=== PATIENT | female | born 1950 | race Caucasian/White ===

== ENCOUNTER 2024-07-10 09:57 | Emergency (ER) | payer MEDICARE, SELFPAY ==
[2024-07-10 10:20] VITALS: BP 147/84; PULSE 89; RESP 18; TEMP 36.6; O2SAT 97
--- NOTE | 2024-07-10 10:57 | ED_ITS ---
HPI - URI/Sore Throat General Chief Complaint: Upper Respiratory Infection Stated Complaint: congestion Time Seen by Provider: 07/10/24 11:00 Source: patient, family, RN notes reviewed and old records reviewed Mode of arrival: ambulatory Limitations: no limitations History of Present Illness HPI Narrative: 74 year old female visiting from [place] with 4 days history of coughing with expectoration of greenish tinged mucous, wheezing, coughing so hard at night she can not sleep. She reports that she had 2-3 days of fever initially with sweats and chills when symptoms started. She has been taking Tylenol and ibuprofen for her symptoms, denies any sore throat or any ear pain. MD elicited complaint: fever, cough and other (wheezing) Onset (ago): day(s) (4) Severity: moderate Description of mucous: green Able to tolerate fluids by mouth: Yes Treatments prior to arrival: acetaminophen and ibuprofen Related Data Home Medications ?Medication ?Instructions ?Recorded ?Confirmed ?Last Taken ?Type alprazolam 0.5 mg tablet mg 07/10/24 Unknown History aspirin 81 mg capsule 81 mg PO DAILY 07/10/24 07/10/24 Unknown History atenolol 50 mg tablet mg 07/10/24 Unknown History atorvastatin 20 mg tablet mg 07/10/24 Unknown History calcium 500 mg tablet mg 07/10/24 Unknown History lansoprazole 30 mg capsule,delayed mg 07/10/24 Unknown History release multivitamin (Daily Multi-Vitamin 1 tablet PO DAILY 07/10/24 07/10/24 Unknown History tablet) Allergies Allergy/AdvReac Type Severity Reaction Status Date / Time No Known Allergies Allergy Verified 07/10/24 10:54 Review of Systems Review of Systems: CONSTITUTIONAL: reports malaise, chills, sweats, or fever. EYES: Denies visual changes, redness, or discharge. ENT: Reports rhinorrhea, congestion, sinus pain, no otalgia and no sore throat. CARDIOVASCULAR: Denies chest pain, palpitations, or edema. RESPIRATORY: Reports productive cough and wheezing .? Denies dyspnea. GASTROINTESTINAL: Denies abdominal pain, nausea, vomiting, diarrhea SKIN: Denies rash or itching. MUSCULOSKELETAL: Denies myalgia. NEUROLOGIC: Denies headache. All systems reviewed & are unremarkable except as noted in HPI and below PMFSH Past Medical History Medical History (Updated 07/11/24 @ 22:57 by Chloé Virgen NP) Post-menopausal Bronchitis Hiatal hernia Anxiety Hyperlipidemia GERD (gastroesophageal reflux disease) Hypertension Surgical History Surgical History (Updated 07/11/24 @ 22:52 by Chloé Virgen NP) Hx of dilation and curettage Social History Social History (Updated 07/11/24 @ 22:52 by Chloé Virgen NP) Smoking status: Never smoker Alcohol intake: current Alcohol use details: social Substance use type: does not use Living arrangements: with family Occupation/Education: retired Gender identity (if verbalized by the patient): Female Comments At time of signature, agree with nursing past medical, surgical, social and family history. There is no relevant family history pertinent to the presenting complaint Exam Narrative: GENERAL: Well-appearing, well-nourished, and in no acute distress. HEAD: Normocephalic EYES: PERRLA, conjunctivae clear ENT: Nares clear, turbinates edematous and erythematous, clear discharge. Mucous membranes moist. TM pearly mcintosh with dull light reflex bilaterally; no tragal tenderness. Oropharynx erythematous without lesions. Tonsils not enlarged and without exudate, no drooling, no hoarseness, no trismus, uvula midline. NECK: Supple. No lymphadenopathy CHEST: Coarse with scattered wheezing on auscultation, breath sounds equal.positive wheezing,no rhonchi, rales, or stridor. No respiratory distress, speaks in full sentences, productive cough, SAO2 97% on room air HEART: Regular rate and rhythm. No murmur heard. SKIN: Warm, dry, no rash. NEURO: Alert and oriented x3. PSYCH: Normal mood and affect Course Course Emergency Course: Patient is aware of diagnosis, understands and agrees to treatment plan.? An ticipatory guidance given.? Patient agrees to follow-up as directed and is aware of reasons to seek care at the emergency department. Portions of this record may have been created with voice recognition software Level of Care: Express Care Visit Vital Signs Vital signs: Vital Signs Temperature 36.6 C 07/10/24 10:20 Pulse Rate 89 07/10/24 10:20 Respiratory Rate 18 07/10/24 10:20 Blood Pressure 147/84 H 07/10/24 10:20 Pulse Oximetry 97 12/22/24 10:20 Oxygen Delivery Room Air 07/10/24 10:20 Temperature 36.6 C 07/10/24 10:20 Pulse Rate 89 07/10/24 10:20 Respiratory Rate 18 07/10/24 10:20 Blood Pressure 147/84 H 07/10/24 10:20 Pulse Oximetry 97 07/10/24 10:20 Oxygen Delivery Room Air 07/10/24 10:20 Reviewed MDM - URI/Sore Throat MDM Narrative Medical decision making narrative: Differential diagnosis considered: Longo virus, strep pharyngitis, allergic rhinitis, upper respiratory tract infection, sinusitis, rhinosinusitis, nasopharyngitis. viral pharyngitis, otitis media, otitis externa, pneumonia, bronchitis, viral cough syndrome, viral syndrome, and influenza.? Exam findings show no acute concerns or changes; patient is non-toxic appearing and is in no distress.? Patient is appropriate for outpatient treatment and follow-up. Differential Diagnosis Differential diagnosis: Likely upper respiratory infection, viral infection, bronchitis and other (acute cough) Medical Records Attestation: I reviewed the patient's medical records. Lab Data Attestation: I reviewed the patient's lab results. Critical Care Time Critical Care Time Critical Care Time: No Discharge Plan Discharge Clinical Impression: Acute bronchitis Qualifiers: Bronchitis organism: unspecified organism Qualified Code(s): J20.9 - Acute bronchitis, unspecified Patient Disposition: Home, Self-Care Condition: Stable Instructions: Antibiotic Form, Acute Bronchitis (ED) Additional Instructions: Increase fluids especially juices and water [id number] cough and cold medicine of your choice for your symptoms Prescription cough medicine as directed--caution drowsiness and no driving or alcohol Zyrtec Claritin or Fern daily can use Coricidin brand decongestant Tylenol or ibuprofen for any fever pain Continue your inhaler/nebulizer as directed Steroids as directed--take with food heat to the face 20-30 minutes 4-6 times a day for pain Salt water gargles, throat lozenges or throat sprays as desired Antibiotic as directed--finished the medication If your symptoms persist, change or worsen significantly before you can contact your personal physician then please, without delay, go to the emergency department for further evaluation. Follow-up with PCP in 7-10 days or sooner if needed Follow up with PCP soon in regards to your blood pressure which is elevated above threshold for referral. Blood pressure above 120/80 may indicate pre- hypertension. 147/84 Patient Language: Romanian Prescriptions: New albuterol sulfate [Ventolin HFA] 90 mcg/actuation HFA aerosol inhaler 2 puff inhalation QID PRN (Reason: shortness of breath or wheezing) Qty: 6.7 0RF azithromycin 250 mg tablet See Rx Instructions .ROUTE .COMPLEX Qty: 6 0RF Rx Instructions: For 250 mg dose pack: take 500 mg today (day 1), then 250 mg for 4 days (days 2-5) prednisone 50 mg tablet 50 mg PO DAILY Qty: 5 0RF Rx Instructions: take with food and take in am codeine-guaifenesin 10-100 mg/5 mL liquid 10 ml PO Q6H PRN (Reason: cough) Qty: 120 0RF Rx Instructions: can not drive or operate machinery while taking do not take Xanax with this medication No Action atorvastatin 20 mg tablet alprazolam 0.5 mg tablet lansoprazole 30 mg capsule,delayed release(DR/EC) atenolol 50 mg tablet aspirin 81 mg capsule 81 mg PO DAILY calcium 500 mg tablet multivitamin [Daily Multi-Vitamin] Tablet 1 tablet PO DAILY Follow-up/Referrals: UNKNOWN,DOCTOR [Primary Care Provider] - Time of Disposition: 11:17 Quality Jenae Coma Scale Eyes: Open Verbal: Oriented and Alert Motor: Follows Commands [place] Coma Total Score: 15
--- OUTSIDE RECORDS SUMMARY | 2024-07-17 09:40 | XMS_ITS | Encounter Summary ---
Author Organization [facility] Address [address] [place] [address]. [place] [address] [place] [address] Care Team Providers Care Core Setter Name Role Phone Unavailable Primary Care Provider Unavailabl e Encounter Details Date Type Department Care Team (Late st Contact Info) Description 10/25/2002 Abstract [facility] CONVERSION [address] [place] [address] , Generic Conversion, Social History Tobacco Use Types Packs/Day Years Used Date Smoking Tobacco: Never Assessed Comments Unknown Sex and Gender Information Value Date Recorded Sex Assigned at Not on file Legal Sex Female 5:44 PM CONVEYANCER Gender Identity Not on file Sexual Orientation Not on file documented as of this encounter Plan of Treatment Not on file documented as of this encounter Visit Diagnoses Not on filedocumented in this encounter
--- OUTSIDE RECORDS SUMMARY | 2024-07-17 09:40 | XMS_ITS | Clinical Summary ---
Author Organization [facility] Address [address] [place] [address]. 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 Gender Identity Not on file Sexual Orientation Not on file Plan of Treatment Health Maintenance Due Date Last Done Comments Colorectal Cancer Screening Colonoscopy (10 Years) 1951 Hepatitis C 1969 DTaP, Tdap and Td Vaccines ( 1 - Tdap) 1970 Mammogram Screening 1991 Zoster Vaccines (1 of 2) 2001 Dexa Scan (General) 2016 Pneumococcal Vaccine: 65+ Ye ars (1 of 1 - PCV) 2016 COVID-19 Vaccine ( - 2023-2 5 season) 2024 Influenza Adult (#1) 2024 RSV Immunization or 60+ Years (1 - 1-dose 75+ series) 2026 Meningococcal Vaccine Aged Out No bennie uri eligible based on patient's age to complete this topic RSV Immunizations Under 20 Months Aged Out No longer eligible based on patient's age to complete this topic
--- OUTSIDE RECORDS SUMMARY | 2024-07-17 09:40 | XMS_ITS | Encounter Summary ---
Author Organization [facility] Address [address] [place] [address]. [place] [address] [place] [address] Care Team Providers Care Ground Instructor Advanced Name Role Phone Unavailable Primary Care Provider Unavailabl e Encounter Details Date Type Department Care Team (Late st Contact Info) Description 08/03/2000 Abstract [facility] CONVERSION [address] [place] [address] , Generic Conversion, Social History Tobacco Use Types Packs/Day Years Used Date Smoking Tobacco: Never Assessed Comments Unknown Sex and Gender Information Value Date Recorded Sex Assigned at Not on file Legal Sex Female 5:44 PM OIL SPREADER OPERATOR Gender Identity Not on file Sexual Orientation Not on file documented as of this encounter Plan of Treatment Not on file documented as of this encounter Visit Diagnoses Not on filedocumented in this encounter
--- OUTSIDE RECORDS SUMMARY | 2024-07-17 09:40 | XMS_ITS | Encounter Summary ---
Author Organization [facility] Address [address] [place] [address]. [place] [address] [place] [address] Care Team Providers Care House Coordinator Name Role Phone Unavailable Primary Care Provider Unavailabl e Encounter Details Date Type Department Care Team (Late st Contact Info) Description 05/14/1999 Abstract [facility] CONVERSION [address] [place] [address] , Generic Conversion, Social History Tobacco Use Types Packs/Day Years Used Date Smoking Tobacco: Never Assessed Comments Unknown Sex and Gender Information Value Date Recorded Sex Assigned at Not on file Legal Sex Female 5:44 PM FLEXIBLE SHAFT WINDER Gender Identity Not on file Sexual Orientation Not on file documented as of this encounter Plan of Treatment Not on file documented as of this encounter Visit Diagnoses Not on filedocumented in this encounter
--- OUTSIDE RECORDS SUMMARY | 2024-07-17 09:40 | XMS_ITS | Encounter Summary ---
Author Organization [facility] Address [address] [place] [address]. [place] [address] [place] [address] Care Team Providers Care Flute Polisher Name Role Phone Unavailable Primary Care Provider Unavailabl e Encounter Details Date Type Department Care Team (Late st Contact Info) Description 04/14/2002 Abstract [facility] CONVERSION [address] [place] [address] , Generic Conversion, Social History Tobacco Use Types Packs/Day Years Used Date Smoking Tobacco: Never Assessed Comments Unknown Sex and Gender Information Value Date Recorded Sex Assigned at Not on file Legal Sex Female 5:44 PM PRODUCT STRATEGY DIRECTOR Gender Identity Not on file Sexual Orientation Not on file documented as of this encounter Plan of Treatment Not on file documented as of this encounter Visit Diagnoses Not on filedocumented in this encounter
--- OUTSIDE RECORDS SUMMARY | 2024-07-17 09:40 | XMS_ITS | Encounter Summary ---
Author Organization [facility] Address [address] [place] [address]. [place] [address] [place] [address] Care Team Providers Care Storage Administrator Name Role Phone Unavailable Primary Care Provider Unavailabl e Encounter Details Date Type Department Care Team (Late st Contact Info) Description 04/12/2002 Abstract [facility] CONVERSION [address] [place] [address] , Generic Conversion, Social History Tobacco Use Types Packs/Day Years Used Date Smoking Tobacco: Never Assessed Comments Unknown Sex and Gender Information Value Date Recorded Sex Assigned at Not on file Legal Sex Female 5:44 PM CLAIMS ADMINISTRATOR Gender Identity Not on file Sexual Orientation Not on file documented as of this encounter Plan of Treatment Not on file documented as of this encounter Visit Diagnoses Not on filedocumented in this encounter
--- OUTSIDE RECORDS SUMMARY | 2024-07-17 09:40 | XMS_ITS | Encounter Summary ---
Author Organization [facility] Address [address] [place] [address]. [place] [address] [place] [address] Care Team Providers Care Commercial Lines Account Assistant Name Role Phone Unavailable Primary Care Provider Unavailabl e Encounter Details Date Type Department Care Team (Late st Contact Info) Description 09/24/2001 Abstract [facility] CONVERSION [address] [place] [address] , Generic Conversion, Social History Tobacco Use Types Packs/Day Years Used Date Smoking Tobacco: Never Assessed Comments Unknown Sex and Gender Information Value Date Recorded Sex Assigned at Not on file Legal Sex Female 5:44 PM RUBBISH COLLECTOR Gender Identity Not on file Sexual Orientation Not on file documented as of this encounter Plan of Treatment Not on file documented as of this encounter Visit Diagnoses Not on filedocumented in this encounter
--- OUTSIDE RECORDS SUMMARY | 2024-07-17 09:40 | XMS_ITS | Encounter Summary ---
Author Organization [facility] Address [address] [place] [address]. [place] [address] [place] [address] Care Team Providers Care Jinriksha Driver Name Role Phone Unavailable Primary Care Provider Unavailabl e Encounter Details Date Type Department Care Team (Late st Contact Info) Description 05/23/2004 Abstract [facility] CONVERSION [address] [place] [address] Elie Grigsby MD [address] [place] [address] Social History Tobacco Use Types Packs/Day Years Used Date Smoking Tobacco: Never Assessed Comments Unknown Sex and Gender Information Value Date Recorded Sex Assigned at Not on file Legal Sex Female 5:44 PM LENS MOLDING EQUIPMENT OPERATOR Gender Identity Not on file Sexual Orientation Not on file documented as of this encounter Plan of Treatment Not on file documented as of this encounter Visit Diagnoses Not on filedocumented in this encounter
--- OUTSIDE RECORDS SUMMARY | 2024-07-17 09:40 | XMS_ITS | Encounter Summary ---
Author Organization [facility] Address [address] [place] [address]. [place] [address] [place] [address] Care Team Providers Care Rubber Cutting Machine Tender Name Role Phone Unavailable Primary Care Provider Unavailabl e Encounter Details Date Type Department Care Team (Late st Contact Info) Description 03/23/2002 Abstract [facility] CONVERSION [address] [place] [address] , Generic Conversion, Social History Tobacco Use Types Packs/Day Years Used Date Smoking Tobacco: Never Assessed Comments Unknown Sex and Gender Information Value Date Recorded Sex Assigned at Not on file Legal Sex Female 5:44 PM SLEEPING ROOM CLEANER Gender Identity Not on file Sexual Orientation Not on file documented as of this encounter Plan of Treatment Not on file documented as of this encounter Visit Diagnoses Not on filedocumented in this encounter
--- OUTSIDE RECORDS SUMMARY | 2024-07-17 09:40 | XMS_ITS | Encounter Summary ---
Author Organization [facility] Address [address] [place] [address]. [place] [address] [place] [address] Care Team Providers Care Vehicle Leasing And Rental Manager Name Role Phone Unavailable Primary Care Provider Unavailabl e Encounter Details Date Type Department Care Team (Late st Contact Info) Description 05/20/1999 Abstract [facility]FL CONVERSION [address] [place] [address] , Generic Conversion, Social History Tobacco Use Types Packs/Day Years Used Date Smoking Tobacco: Never Assessed Comments Unknown Sex and Gender Information Value Date Recorded Sex Assigned at Not on file Legal Sex Female 5:44 PM LABORATORY ASSISTANT Gender Identity Not on file Sexual Orientation Not on file documented as of this encounter Plan of Treatment Not on file documented as of this encounter Visit Diagnoses Not on filedocumented in this encounter
--- OUTSIDE RECORDS SUMMARY | 2024-07-17 09:40 | XMS_ITS | Encounter Summary ---
Author Organization [facility] Address [address] [place] [address]. [place] [address] [place] [address] Care Team Providers Care Metal Sorter Name Role Phone Unavailable Primary Care Provider Unavailabl e Encounter Details Date Type Department Care Team (Late st Contact Info) Description 04/22/2006 Abstract [facility]FL CONVERSION [address] [place] [address] , Generic Conversion, Social History Tobacco Use Types Packs/Day Years Used Date Smoking Tobacco: Never Assessed Comments Unknown Sex and Gender Information Value Date Recorded Sex Assigned at Not on file Legal Sex Female 5:44 PM RECYCLE WORKER Gender Identity Not on file Sexual Orientation Not on file documented as of this encounter Plan of Treatment Not on file documented as of this encounter Visit Diagnoses Not on filedocumented in this encounter
--- OUTSIDE RECORDS SUMMARY | 2024-07-17 09:40 | XMS_ITS | Encounter Summary ---
Author Organization [facility] Address [address] [place] [address]. [place] [address] [place] [address] Care Team Providers Care Solar Engineer Name Role Phone Unavailable Primary Care Provider Unavailabl e Encounter Details Date Type Department Care Team (Late st Contact Info) Description 05/08/[address] [facility] [address] [facility] [place] [address] Elie Grigsby MD [address] [place] [address] Social History Tobacco Use Types Packs/Day Years Used Date Smoking Tobacco: Never Assessed Comments Unknown Sex and Gender Information Value Date Recorded Sex Assigned at Not on file Legal Sex Female 5:44 PM TAX MAP TECHNICIAN Gender Identity Not on file Sexual Orientation Not on file documented as of this encounter Plan of Treatment Not on file documented as of this encounter Visit Diagnoses Not on filedocumented in this encounter
--- OUTSIDE RECORDS SUMMARY | 2024-07-17 09:40 | XMS_ITS | Encounter Summary ---
Author Organization [facility] Address [address] [place] [address]. [place], [place] [address] [place] [address] Care Team Providers Care Cartographic Drafter Name Role Phone Unavailable Primary Care Provider Unavailabl e Encounter Details Date Type Department Care Team (Late st Contact Info) Description 09/05/[address] [facility] [address] [facility] [place] [address] , Generic Conversion, Social History Tobacco Use Types Packs/Day Years Used Date Smoking Tobacco: Never Assessed Comments Unknown Sex and Gender Information Value Date Recorded Sex Assigned at Not on file Legal Sex Female 5:44 PM CATARACT LENS GENERATOR Gender Identity Not on file Sexual Orientation Not on file documented as of this encounter Plan of Treatment Not on file documented as of this encounter Visit Diagnoses Not on filedocumented in this encounter
--- OUTSIDE RECORDS SUMMARY | 2024-07-17 09:40 | XMS_ITS | Encounter Summary ---
Author Organization [facility] Address [address] [place] [address]. [place] [address] [place] [address] Care Team Providers Care Transportation Program Director Name Role Phone Unavailable Primary Care Provider Unavailabl e Encounter Details Date Type Department Care Team (Late st Contact Info) Description 04/12/1999 Abstract [facility] CONVERSION [address] [place] [address] , Generic Conversion, Social History Tobacco Use Types Packs/Day Years Used Date Smoking Tobacco: Never Assessed Comments Unknown Sex and Gender Information Value Date Recorded Sex Assigned at Not on file Legal Sex Female 5:44 PM PULLMAN CONDUCTOR Gender Identity Not on file Sexual Orientation Not on file documented as of this encounter Plan of Treatment Not on file documented as of this encounter Visit Diagnoses Not on filedocumented in this encounter
--- OUTSIDE RECORDS SUMMARY | 2024-07-17 09:40 | XMS_ITS | Encounter Summary ---
Author Organization [facility] Address [address] [place] [address]. [place], [place] [id number] [place] [address] Care Team Providers Care Behavioral Sciences Department Chair Name Role Phone Unavailable Primary Care Provider Unavailabl e Encounter Details Date Type Department Care Team (Late st Contact Info) Description 04/05/[address] [facility] [address] [facility] [place] [address] , Generic Conversion, Social History Tobacco Use Types Packs/Day Years Used Date Smoking Tobacco: Never Assessed Comments Unknown Sex and Gender Information Value Date Recorded Sex Assigned at Not on file Legal Sex Female 5:44 PM MINING SUPPORT WORKER Gender Identity Not on file Sexual Orientation Not on file documented as of this encounter Plan of Treatment Not on file documented as of this encounter Visit Diagnoses Not on filedocumented in this encounter
--- OUTSIDE RECORDS SUMMARY | 2024-07-17 09:40 | XMS_ITS | Encounter Summary ---
Author Organization [facility] Address [address] [place] [address]. [place] [address] [place] [address] Care Team Providers Care Offset Printing Pressmen Name Role Phone Unavailable Primary Care Provider Unavailabl e Encounter Details Date Type Department Care Team (Late st Contact Info) Description 06/28/2003 Abstract [facility] CONVERSION [address] [place] [address] , Generic Conversion, Social History Tobacco Use Types Packs/Day Years Used Date Smoking Tobacco: Never Assessed Comments Unknown Sex and Gender Information Value Date Recorded Sex Assigned at Not on file Legal Sex Female 5:44 PM AUTO REPAIR SHOP MANAGER Gender Identity Not on file Sexual Orientation Not on file documented as of this encounter Plan of Treatment Not on file documented as of this encounter Visit Diagnoses Not on filedocumented in this encounter
--- OUTSIDE RECORDS SUMMARY | 2024-07-17 09:40 | XMS_ITS | Encounter Summary ---
Author Organization [facility] Address [address] [place] [address]. [place] [address] [place] [address] Care Team Providers Care Lacquer Spray Booth Operator Name Role Phone Unavailable Primary Care Provider Unavailabl e Encounter Details Date Type Department Care Team (Late st Contact Info) Description 03/14/2001 Abstract [facility] [address] [place] [address] , Generic Conversion, Social History Tobacco Use Types Packs/Day Years Used Date Smoking Tobacco: Never Assessed Comments Unknown Sex and Gender Information Value Date Recorded Sex Assigned at Not on file Legal Sex Female 5:44 PM EQUIPMENT MAINTENANCE ENGINEER Gender Identity Not on file Sexual Orientation Not on file documented as of this encounter Plan of Treatment Not on file documented as of this encounter Visit Diagnoses Not on filedocumented in this encounter
--- OUTSIDE RECORDS SUMMARY | 2024-07-17 09:40 | XMS_ITS | Encounter Summary ---
Author Organization [facility] Address [address] [place] [address]. [place], [place] [address] [place] [address] Care Team Providers Care 4Th Grade Teacher Name Role Phone Unavailable Primary Care Provider Unavailabl e Encounter Details Date Type Department Care Team (Late st Contact Info) Description 08/29/[address] [facility] [address] [place] [address] , Generic Conversion, Social History Tobacco Use Types Packs/Day Years Used Date Smoking Tobacco: Never Assessed Comments Unknown Sex and Gender Information Value Date Recorded Sex Assigned at Not on file Legal Sex Female 5:44 PM MANAGER OF CONSTRUCTION Gender Identity Not on file Sexual Orientation Not on file documented as of this encounter Plan of Treatment Not on file documented as of this encounter Visit Diagnoses Not on filedocumented in this encounter
--- OUTSIDE RECORDS SUMMARY | 2024-07-17 09:40 | XMS_ITS | Encounter Summary ---
Author Organization [facility] Address [address] [place] [address]. [place] [address] [place] [address] Care Team Providers Care Paper Coating Supervisor Name Role Phone Unavailable Primary Care Provider Unavailabl e Encounter Details Date Type Department Care Team (Late st Contact Info) Description 04/20/2002 Abstract [facility] [address] [place] [address] , Generic Conversion, Social History Tobacco Use Types Packs/Day Years Used Date Smoking Tobacco: Never Assessed Comments Unknown Sex and Gender Information Value Date Recorded Sex Assigned at Not on file Legal Sex Female 5:44 PM MEDICAL DELIVERY TECHNICIAN Gender Identity Not on file Sexual Orientation Not on file documented as of this encounter Plan of Treatment Not on file documented as of this encounter Visit Diagnoses Not on filedocumented in this encounter
--- OUTSIDE RECORDS SUMMARY | 2024-07-17 09:41 | XMS_ITS | Encounter Summary ---
Author Organization [facility] Address [address] [place] [address]. [place] [address] [place] [address] Care Team Providers Care Zinc Plater Name Role Phone Unavailable Primary Care Provider Unavailabl e Encounter Details Date Type Department Care Team (Late st Contact Info) Description 10/18/1997 Abstract [facility] [address] [place] [address] , Generic Conversion, Social History Tobacco Use Types Packs/Day Years Used Date Smoking Tobacco: Never Assessed Comments Unknown Sex and Gender Information Value Date Recorded Sex Assigned at Not on file Legal Sex Female 5:44 PM LARDER COOK Gender Identity Not on file Sexual Orientation Not on file documented as of this encounter Plan of Treatment Not on file documented as of this encounter Visit Diagnoses Not on filedocumented in this encounter
--- OUTSIDE RECORDS SUMMARY | 2024-07-17 09:41 | XMS_ITS | Encounter Summary ---
Author Organization [facility] Address [address] [place] [address]. [place] [address] [place] [address] Care Team Providers Care Poolroom Table Attendant Name Role Phone Unavailable Primary Care Provider Unavailabl e Encounter Details Date Type Department Care Team (Late st Contact Info) Description 05/28/1998 Abstract [facility] [address] [place] [address] , Generic Conversion, Social History Tobacco Use Types Packs/Day Years Used Date Smoking Tobacco: Never Assessed Comments Unknown Sex and Gender Information Value Date Recorded Sex Assigned at Not on file Legal Sex Female 5:44 PM TOOL SETTER APPRENTICE Gender Identity Not on file Sexual Orientation Not on file documented as of this encounter Plan of Treatment Not on file documented as of this encounter Visit Diagnoses Not on filedocumented in this encounter
--- OUTSIDE RECORDS SUMMARY | 2024-07-17 09:41 | XMS_ITS | Encounter Summary ---
Author Organization [facility] Address [address] [place] [address]. [place] [address] [place] [address] Care Team Providers Care Setter Helper Name Role Phone Unavailable Primary Care Provider Unavailabl e Encounter Details Date Type Department Care Team (Late st Contact Info) Description 10/16/1997 Abstract [facility] [address] [place] [address] , Generic Conversion, Social History Tobacco Use Types Packs/Day Years Used Date Smoking Tobacco: Never Assessed Comments Unknown Sex and Gender Information Value Date Recorded Sex Assigned at Not on file Legal Sex Female 5:44 PM RN CALL CENTER Gender Identity Not on file Sexual Orientation Not on file documented as of this encounter Plan of Treatment Not on file documented as of this encounter Visit Diagnoses Not on filedocumented in this encounter
--- OUTSIDE RECORDS SUMMARY | 2024-07-17 09:41 | XMS_ITS | Encounter Summary ---
Author Organization [facility] Address [address] [place] [address]. [place] [address] [place] [address] Care Team Providers Care Reverse Logistics Analyst Name Role Phone Unavailable Primary Care Provider Unavailabl e Encounter Details Date Type Department Care Team (Late st Contact Info) Description 03/07/1999 Abstract [facility] [address] [place] [address] , Generic Conversion, Social History Tobacco Use Types Packs/Day Years Used Date Smoking Tobacco: Never Assessed Comments Unknown Sex and Gender Information Value Date Recorded Sex Assigned at Not on file Legal Sex Female 5:44 PM TENT ASSEMBLER Gender Identity Not on file Sexual Orientation Not on file documented as of this encounter Plan of Treatment Not on file documented as of this encounter Visit Diagnoses Not on filedocumented in this encounter
--- OUTSIDE RECORDS SUMMARY | 2024-07-17 09:41 | XMS_ITS | Encounter Summary ---
Author Organization [facility] Address [address] [place] [address]. [place] [address] [place] [address] Care Team Providers Care Building Surveyor Name Role Phone Unavailable Primary Care Provider Unavailabl e Encounter Details Date Type Department Care Team (Late st Contact Info) Description 09/28/1996 Abstract [facility] [address] [place] [address] , Generic Conversion, Social History Tobacco Use Types Packs/Day Years Used Date Smoking Tobacco: Never Assessed Comments Unknown Sex and Gender Information Value Date Recorded Sex Assigned at Not on file Legal Sex Female 5:44 PM FULL CHARGE BOOKKEEPER Gender Identity Not on file Sexual Orientation Not on file documented as of this encounter Plan of Treatment Not on file documented as of this encounter Visit Diagnoses Not on filedocumented in this encounter
--- OUTSIDE RECORDS SUMMARY | 2024-07-17 09:41 | XMS_ITS | Encounter Summary ---
Author Organization [facility] Address [address] [place] [address]. [place] [address] [place] [address] Care Team Providers Care Ornamental Ironworker Name Role Phone Unavailable Primary Care Provider Unavailabl e Encounter Details Date Type Department Care Team (Late st Contact Info) Description 07/22/1996 Abstract [facility] [address] [place] [address] , Generic Conversion, Social History Tobacco Use Types Packs/Day Years Used Date Smoking Tobacco: Never Assessed Comments Unknown Sex and Gender Information Value Date Recorded Sex Assigned at Not on file Legal Sex Female 5:44 PM POLICE CAPTAIN SENIOR Gender Identity Not on file Sexual Orientation Not on file documented as of this encounter Plan of Treatment Not on file documented as of this encounter Visit Diagnoses Not on filedocumented in this encounter
--- OUTSIDE RECORDS SUMMARY | 2024-07-17 09:41 | XMS_ITS | Encounter Summary ---
Author Organization [facility] Address [address] [place] [address]. [place] [address] [place] [address] Care Team Providers Care Tobacco Sizer Name Role Phone Unavailable Primary Care Provider Unavailabl e Encounter Details Date Type Department Care Team (Late st Contact Info) Description 10/16/1997 Abstract [facility] CON[facility] [address] [place] [address] , Generic Conversion, Social History Tobacco Use Types Packs/Day Years Used Date Smoking Tobacco: Never Assessed Comments Unknown Sex and Gender Information Value Date Recorded Sex Assigned at Not on file Legal Sex Female 5:44 PM SQUAD SERGEANT Gender Identity Not on file Sexual Orientation Not on file documented as of this encounter Plan of Treatment Not on file documented as of this encounter Visit Diagnoses Not on filedocumented in this encounter
--- OUTSIDE RECORDS SUMMARY | 2024-07-17 09:41 | XMS_ITS | Encounter Summary ---
Author Organization [facility] Address [address] [place] [address]. [place] [address] [place] [address] Care Team Providers Care Diver Helper Name Role Phone Unavailable Primary Care Provider Unavailabl e Encounter Details Date Type Department Care Team (Late st Contact Info) Description 04/05/1999 Abstract [facility] CON[facility] [address] [place] [address] , Generic Conversion, Social History Tobacco Use Types Packs/Day Years Used Date Smoking Tobacco: Never Assessed Comments Unknown Sex and Gender Information Value Date Recorded Sex Assigned at Not on file Legal Sex Female 5:44 PM NUT SIFTER Gender Identity Not on file Sexual Orientation Not on file documented as of this encounter Plan of Treatment Not on file documented as of this encounter Visit Diagnoses Not on filedocumented in this encounter
--- OUTSIDE RECORDS SUMMARY | 2024-07-17 09:41 | XMS_ITS | Encounter Summary ---
Author Organization [facility] Address [address] [place] [address] Care Team Providers Care Varnish Thinner Name Role Phone Errol Underwood MD Primary Care Provider [phone] Errol Underwood MD Unavailable [phone] Errol Underwood MD Unavailable [phone] Source Comments Please be aware that You and/or your organization are solely responsible for the use, security, privacy, and any decisions made with any information you receive from [facility] Reason for Visit * Reason Comments Med Refill Encounter Details Date Type Department Care Team (Late st Contact Info) Description 06/13/2024 Refill [facility] Well [facility] [address] [place] [address] Errol Underwood MD [address] [place] [address] Anxiety Social History Tobacco Use Types Packs/Day Years Used Date Smoking Tobacco: Never Smokeless Tobacco: Never Alcohol Use Standard Drinks/Week Comments Yes 0 (1 standard drink = 0.6 oz pur e alcohol) Humiliation, Afraid, Rape, and Kick questionnair e Answer Date Recorded Within the last year, have y ou been afraid of your partner or ex-partner? No 03/06/2023 Within the last year, have y ou been humiliated or emotionally abused in other ways by your partner or ex-partner? No Within the last year, have y ou been kicked, hit, slapped, or otherwise physically hurt by your partner or ex-partner? No 03/06/2023 Within the last year, have y ou been raped or forced to have any kind of sexual activity by your partner or ex-partner? No 03/06/2023 Social Connection and Isolat ion Panel [NHANES] Answer Date Recorded In a typical week, how many times do you talk on the phone with family, friends, or neighbors? More than three times a week 03/06/2023 How often do you get togethe r with friends or relatives? More than three times a week 03/06/2023 How often do you attend chur ch or religion services? Never 03/06/2023 Do you belong to any clubs o r organizations such as hoahaoism groups, unions, fraternal or athletic groups, or school groups? Yes 03/06/2023 How often do you attend meet ings of the clubs or organizations you belong to? More than 4 times per year 03/06/2023 Are you , , di vorced, , never , or living with a partner? 03/06/2023 AUDIT-C Answer Date Recorded Q1: How often do you have a drink containing alcohol? Never 2024 Q2: How many drinks containi ng alcohol do you have on a typical day when you are drinking? Patient does not drink Q3: How often do you have si x or more drinks on one occasion? Never 2024 Overall Financial Resource Strain (CARDIA) Answe r Date Recorded How hard is it for you to pa y for the very basics like food, housing, medical care, and heating? Not hard at all 03/06/2023 PHQ-2 Answer Date Recorded Patient Health Questionnaire-2 Score 0 2024 [facility] Occupat ional Health - Occupational Stress Questionnaire Answer Date Recorded Do you feel stress - tense, restless, nervous, or anxious, or unable to sleep at night because your mind is troubled all the time - these days? Only a little 03/06/2023 Physical Activity Answer Date Recorded On average, how many days pe r week do you engage in moderate to strenuous exercise (like a brisk walk)? 3 days 01/31/2024 On average, how many minutes do you engage in exercise at this level? 40 min 01/31/2024 Food Insecurity Answer Date Recorded Within the past 12 months, y ou worried that your food would run out before you got the money to buy more. 1 03/06/2023 Within the past 12 months, t he food you bought just didn't last and you didn't have money to get more. 1 03/06/2023 Transportation Needs Answer Date Record ed In the past 12 months, has l ack of transportation kept you from medical appointments or from getting medications? 2 02/17 In the past 12 months, has l ack of transportation kept you from meetings, work, or from getting things needed for daily living? 2 03/06/2023 Housing Stability Answer Date Recorded In the last 12 months, was t here a time when you were not able to pay the mortgage or rent on time? 2 03/06/[address] Places Lived Last Flowsheet Value Most Recent Result Not on file 03/06/2023 In the last 12 months, was t here a time when you did not have a steady place to sleep or slept in a fpc (including now)? 2 03/06/2023 Health Literacy Answer Date Recorded How often do you need to hav e someone help you when you read instructions, pamphlets, or other written material from your doctor or pharmacy? Never 01/31/2024 [facility] Food Security Answer Date Recorded Within the past 12 months, t he food you bought just didn't last and you didn't have money to get more. 3 01/31/2024 Within the past 12 months, y ou worried that your food would run out before you got money to buy more. 3 01/31/2024 [facility] Transportation Needs Answer Date Re corded In the past 12 months, has l ack of reliable transportation kept you from medical appointments, meetings, work or from getting things needed for daily living? No 01/31/2024 [facility] Housing Answer Date Recorded What is your living situation today? I have a [facility] place to live 01/31/[address] you li ve. Do you have problems with any of the following? None of the above 01/31/2024 [facility] Safety Answer Date Recorded How often does anyone, david chakraborty family and friends, threaten you with harm? 1 01/31/2024 How often does anyone, david chakraborty family and friends, insult or talk down to you? 1 01/31/2024 How often does anyone, david chakraborty family and friends, physically hurt you? 1 01/31/2024 How often does anyone, david chakraborty family and friends, scream or curse at you? 1 01/31/2024 [facility] Utilities Answer Date Recorded In the past 12 months has [employer], gas, oil, or water [employer] threatened to shut off services in your home? No 01/31/2024 Sex and Gender Information Value Date Recorded Sex Assigned at Not on file Gender Identity Not on file Sexual Orientation Not on file documented as of this encounter Miscellaneous Notes * Telephone Encounter - Radha Subramanian LPN - 06/13/2024 1:47 PM EST Pharmacy fax request for medication refill for the patient. Rx request sent to Provider for review. documented in this encounter Plan of Treatment Upcoming Encounters Date Type Department Care Team (Late st Contact Info) Description 09/06/2024 11:00 AM EST Office Visit [facility] Well 65+ [facility] [address] [place] [id number] Errol Underwood MD [address] [place] [address] 03/16/2025 11:15 AM EDT Office Visit [facility] [place] [address] [facility] [address] [place] [address] Samuel Winslow MD [address] [facility] [address] [place] [address] documented as of this encounter Visit Diagnoses Diagnosis Anxiety Anxiety state, unspecified documented in this encounter Additional Health Concerns Assessment Noted Time A fall risk assessment has been complete d for the patient 2024 1:29 PM EDT documented as of this encounter Care Teams Varnish Thinner Relationship Specialty Start Date End Date Errol Underwood MD PCP - General Family Medicine 02/05/22 Errol Underwood MD [address] [place] [address] PCP - W65+ ACO REACH Attributed Provider 01/18/24 Errol Underwood MD [address] [place] [address] W65+ Responsible Provider Family Medicine 05/20/24 documented as of this encounter
--- OUTSIDE RECORDS SUMMARY | 2024-07-17 09:41 | XMS_ITS | Encounter Summary ---
Author Organization [facility] Address [address] [place] [address]. [place] [address] [place] [address] Care Team Providers Care Tile Layer Drainage Name Role Phone Unavailable Primary Care Provider Unavailabl e Encounter Details Date Type Department Care Team (Late st Contact Info) Description 04/16/1994 Abstract [facility] CON[facility] [address] [place] [address] , Generic Conversion, Social History Tobacco Use Types Packs/Day Years Used Date Smoking Tobacco: Never Assessed Comments Unknown Sex and Gender Information Value Date Recorded Sex Assigned at Not on file Legal Sex Female 5:44 PM FIELD EXAMINER Gender Identity Not on file Sexual Orientation Not on file documented as of this encounter Plan of Treatment Not on file documented as of this encounter Visit Diagnoses Not on filedocumented in this encounter
--- OUTSIDE RECORDS SUMMARY | 2024-07-17 09:41 | XMS_ITS | Encounter Summary ---
Author Organization [facility] Address [address] [place] [address]. [place] [address] [place] [address] Care Team Providers Care Telephone Clerks Supervisor Name Role Phone Unavailable Primary Care Provider Unavailabl e Encounter Details Date Type Department Care Team (Late st Contact Info) Description 10/09/1997 Abstract [facility] [address] [place] [address] , Generic Conversion, Social History Tobacco Use Types Packs/Day Years Used Date Smoking Tobacco: Never Assessed Comments Unknown Sex and Gender Information Value Date Recorded Sex Assigned at Not on file Legal Sex Female 5:44 PM CHILD CARE COORDINATOR Gender Identity Not on file Sexual Orientation Not on file documented as of this encounter Plan of Treatment Not on file documented as of this encounter Visit Diagnoses Not on filedocumented in this encounter
--- OUTSIDE RECORDS SUMMARY | 2024-07-17 09:41 | XMS_ITS | Encounter Summary ---
Author Organization [facility] Address [address] [place] [address]. [place] [address] [place] [address] Care Team Providers Care Rural Carrier Associate Name Role Phone Unavailable Primary Care Provider Unavailabl e Encounter Details Date Type Department Care Team (Late st Contact Info) Description 09/19/1997 Abstract [facility] [address] [place] [address] , Generic Conversion, Social History Tobacco Use Types Packs/Day Years Used Date Smoking Tobacco: Never Assessed Comments Unknown Sex and Gender Information Value Date Recorded Sex Assigned at Not on file Legal Sex Female 5:44 PM CHARTER COORDINATOR Gender Identity Not on file Sexual Orientation Not on file documented as of this encounter Plan of Treatment Not on file documented as of this encounter Visit Diagnoses Not on filedocumented in this encounter
--- OUTSIDE RECORDS SUMMARY | 2024-07-17 09:41 | XMS_ITS | Encounter Summary ---
Author Organization [facility] Address [address] [place] [address]. [place] [address] [place] [address] Care Team Providers Care Transit Coach Operator Name Role Phone Unavailable Primary Care Provider Unavailabl e Encounter Details Date Type Department Care Team (Late st Contact Info) Description 09/23/1997 Abstract [facility] [address] [place] [address] , Generic Conversion, Social History Tobacco Use Types Packs/Day Years Used Date Smoking Tobacco: Never Assessed Comments Unknown Sex and Gender Information Value Date Recorded Sex Assigned at Not on file Legal Sex Female 5:44 PM MONEY LAUNDERING INVESTIGATOR Gender Identity Not on file Sexual Orientation Not on file documented as of this encounter Plan of Treatment Not on file documented as of this encounter Visit Diagnoses Not on filedocumented in this encounter
--- OUTSIDE RECORDS SUMMARY | 2024-07-17 09:41 | XMS_ITS | Encounter Summary ---
Author Organization [facility] Address [address] [place] [address]. [place] [address] [place] [address] Care Team Providers Care Lab Asst Name Role Phone Unavailable Primary Care Provider Unavailabl e Encounter Details Date Type Department Care Team (Late st Contact Info) Description 04/04/1999 Abstract [facility] CONVERSION [address] [place] [address] , Generic Conversion, Social History Tobacco Use Types Packs/Day Years Used Date Smoking Tobacco: Never Assessed Comments Unknown Sex and Gender Information Value Date Recorded Sex Assigned at Not on file Legal Sex Female 5:44 PM TRUMPET TEACHER Gender Identity Not on file Sexual Orientation Not on file documented as of this encounter Plan of Treatment Not on file documented as of this encounter Visit Diagnoses Not on filedocumented in this encounter
--- OUTSIDE RECORDS SUMMARY | 2024-07-17 09:41 | XMS_ITS | Encounter Summary ---
Author Organization [facility] Address [address] [place] [address]. [place] [address] [place] [address] Care Team Providers Care Bark Scaler Name Role Phone Unavailable Primary Care Provider Unavailabl e Encounter Details Date Type Department Care Team (Late st Contact Info) Description 09/28/1997 Abstract [facility] CONVERSION [address] [place] [address] , Generic Conversion, Social History Tobacco Use Types Packs/Day Years Used Date Smoking Tobacco: Never Assessed Comments Unknown Sex and Gender Information Value Date Recorded Sex Assigned at Not on file Legal Sex Female 5:44 PM REGISTRATION MANAGER Gender Identity Not on file Sexual Orientation Not on file documented as of this encounter Plan of Treatment Not on file documented as of this encounter Visit Diagnoses Not on filedocumented in this encounter
--- OUTSIDE RECORDS SUMMARY | 2024-07-17 09:42 | XMS_ITS | Encounter Summary ---
Author Organization [facility] Address [address] [place] [address] Care Team Providers Care Fleet Mechanic Name Role Phone Errol Underwood MD Primary Care Provider Errol Underwood MD Unavailable [phone] Source Comments Please be aware that You and/or your organization are solely responsible for the use, security, privacy, and any decisions made with any information you receive from [facility] Reason for Referral * Imaging (Routine) - Authorized Specialty Diagnoses / Procedures Referred By Ryley t Referred To Contact Radiology Diagnoses History of nephrolithiasis Procedures XR Abdomen 1 View Samuel Winslow MD [address] [place] [address] Referral ID Status Reason Start Date Expiration Date V isits Requested Visits Authorized [id number] Authorized 03/17/2024 03/17/2025 1 1 * Imaging (Routine) - Closed Specialty Diagnoses / Procedures Referred By Ryley pantoja Referred To Contact Radiology Diagnoses History of nephrolithiasis Procedures US Renal Complete Samuel Winslow MD [address] [place] [address] Referral ID Status Reason Start Date Expiration Date Visits Re quested Visits Authorized [id number] Closed 03/17/2024 07/19/2024 1 1 Reason for Visit * Reason Comments Follow-up Encounter Details Date Type Department Care Team (Late st Contact Info) Description 03/17/2024 9:00 AM EDT Office Visit [facility] [place] [address] [place] [address] Samuel Winslow MD [address] [place] [address] Ureteral calculus, left (Primary Dx); History of nephrolithiasis Social History Tobacco Use Types Packs/Day Years Used Date Smoking Tobacco: Never Smokeless Tobacco: Never Tobacco Cessation:Counseling Given: Not Answered Alcohol Use Standard Drinks/Week Comments Yes 0 [...] often do you attend chur ch or latter-day services? Never 03/06/2023 Do you belong to any clubs o r organizations such as worship groups, unions, fraternal or athletic groups, or [...] Recorded Patient Health Questionnaire-[address] [facility] - Occupational Stress Questionnaire Answer Date Recorded [...] rent on time? 2 03/06/2023 [facility] Housi ng Places Lived Last Flowsheet Value Most Recent Result Not on file 03/06/2023 In the last 12 months, was t here a time when you did not have a steady place to sleep or slept in a usp (including now)? 2 03/06/2023 Health Literacy Answer Date Recorded How often do you need to hav e someone help you when you read instructions, pamphlets, or other written material from your doctor or pharmacy? Never 01/31/2024 [facility] Food Security Answer Date Recorded Within the past 12 months, t he food you bought just didn't last and you didn't have money to get more. 3 01/31/2024 Within the past 12 months, y ou worried that your food would run out before you got money to buy more. 3 01/31/2024 [facility] Transportation Needs Answer Date Re corded In the past 12 months, has l ack of reliable transportation kept you from medical appointments, meetings, work or from getting things needed for daily living? No 01/31/2024 [facility] Housing Answer Date Recorded What is your living situation today? I have a [facility] place to live 01/31/[address] you li ve. Do you have problems with any of the following? None of the above 01/31/2024 [facility] Safety Answer Date Recorded How often does anyone, marlenyfelecia palmer family and friends, threaten you with harm? 1 01/31/2024 How often does anyone, david chakraborty family and friends, insult or talk down to you? 1 01/31/2024 How often does anyone, david chakraborty family and friends, physically hurt you? 1 01/31/2024 How often does anyone, david chakraborty family and friends, scream or curse at you? 1 01/31/2024 [facility] Utilities Answer Date Recorded In the past 12 months has e electric, gas, oil, or water company threatened to shut off services in your home? No 01/31/2024 Sex and Gender Information Value Date Recorded Sex Assigned at Not on file Gender Identity Not on file Sexual Orientation Not on file documented as of this encounter Last Filed Vital Signs Vital Sign Reading Time Taken Comments Blood Pressure 148/85 03/17/2024 8:40 AM EDT Pulse 82 03/17/2024 8:40 AM EDT Temperature 37 ??C (98.6 ??F) 03/17/2024 8:40 AM EDT Respiratory Rate - - Oxygen Saturation 99% 03/17/2024 8:40 AM EDT Inhaled Oxygen Concentration - - Weight 87.5 kg (193 lb) 03/17/2024 8:40 AM EDT Height - - Body Mass Index 32.12 2024 2:51 PM EDT documented in this encounter Progress Notes * Samuel Winslow MD - 03/17/2024 9:00 AM EDT FOLLOW UP VISIT Name: Claudia Desai / AGE: 8 1950 / 74 y.o. CSN: [id number] Date of Admission: Chief Complaint Patient presents with Follow-up History of Present Illness Case of a pleasant 74-year-old female who was recently seen on February 24 of this year for management of a 5 mm left distal ureteral calculus noted on CT scan from January 16 of this year. Patient didhave a follow up ultrasound study on January 27 that failed to demonstrate any hydronephrosis. Patient has remained asymptomatic and had a KUB study performed on March 11 and presents today to review the findings. I reviewed the actual KUB and did not clearly visualize the patient's known left distal stone. There were multiple phleboliths that made it difficult to assess any retained stone. I discussed options of a repeat ultrasound to assess for ongoing resolution of the hydronephrosis versus CT scan. Patient agreed to have the ultrasound study performed as she is asymptomatic. Patient also informed me that this was her 1st stone episode. Past Medical History: Diagnosis Date GERD (gastroesophageal reflux disease) History of atrial fibrillation Hyperlipidemia Hypertension Renal stones Urinary tract infection Past Surgical History: Procedure Laterality Date CYSTOSCOPY 10/15/2018 DILATION AND CURETTAGE OF UTERUS 12/03/2015 HYSTERECTOMY TONSILLECTOMY PEDS MEDS Tamsulosin Family History Problem Relation Name Age of Onset Diabetes Father Hypertension Father Coronary artery disease Father Social History Socioeconomic History Marital status: Tobacco Use Smoking status: Never Smokeless tobacco: Never Vaping Use Vaping status: Never Used Substance and Sexual Activity Alcohol use: Yes Drug use: Never Sexual activity: Defer REVIEW OF SYSTEMS Constitutional - Denies any fever, chills, weight loss HEENT - Denies any sore throat, blurry vision, hearing loss, scleral icterus Skin - Denies any rash or wounds CV - Denies any chest pain or LE edema Resp - Denies any cough or shortness of breath GI - Denies any diarrhea, constipation, abdominal pain, melena, hematochezia, nausea, vomiting - Denies any hematuria or dysuria Neuro - Denies any seizures, syncope, or headaches Musculoskeletal - Denies any neck pain or back pain Heme - Denies any excessive bleeding or bruising, Lymph - Denies any swollen lymph nodes Psychiatric - Denies any depression or memory problems Vital Signs 03/17/24 0840 BP: (!) 148/85 BP Location: Left arm Patient Position: Sitting BP Cuff Size: Adult Pulse: 82 Temp: 37 ??C (98.6 ??F) SpO2: 99% Weight: 87.5 kg (193 lb) @[id number]@ Body mass index is 32.12 kg/m??. Physical Exam GENERAL: The patient appeared to be in no distress. The patient was lying in bed comfortably. SKIN: Warm, dry with no rashes or lesions. There is no jaundice. HEAD: Head was atraumatic and normocephalic. EYES: Extraocular muscles were intact. The patient was anicteric. Pupils were equally reactive to light. ENT: Ears: There were no lesions. Nose: No lesions were noted. Throat: There was no thrush, no exudate, no erythema. There was no evidence of gum bleeding. NECK: Supple. There was no JVD. No LAD. HEART: Regular rate and rhythm. Normal S1 and S2. No murmurs or rubs. LUNGS: Air entry was good. The lungs were clear to auscultation bilaterally. There are no wheezes, rales, or rhonchi. There is normal respiratory effort. ABDOMEN: Soft, nondistended and nontender. Bowel sounds were present. MUSCULOSKELETAL: There was no deformity. There was full range of motion in all the extremities. There was no edema. LYMPH: There is no lymphadenopathy of the axilla, inguinal region, or cervical region. NEUROLOGICAL: There was no focal deficit. Cranial nerves II through XII were intact. Labs/Studies No results found for this or any previous visit (from the past 24 hour(s)). No imaging results in the past day. Assessment Active Problems: There are no active Hospital Problems. History 5 mm left distal ureteral stone which likely has passed Plan 1. We will order a follow up renal ultrasound to assess for any hydronephrosis and if negative managed conservatively. 2. Tentatively give the patient a follow up visit with me in 1 year with a KUB just prior to followup visit documented in this encounter Plan of Treatment Upcoming Encounters Date Type Department Care Team (Late st Contact Info) Description 09/06/2024 11:00 AM EST Office Visit [facility] [place] [address] [place] [id number] Errol Underwood MD [address] [place] [address] 03/16/2025 11:15 AM EDT Office Visit [facility] [place] [address] [place] [address] Samuel Winslow MD [address] [place] [address] Scheduled Orders Name Type Priority Associated Diagnoses Orde r Schedule XR Abdomen 1 View Imaging Routine History of nephrolithiasis Expected: 03/17/2025, Expires: 03/17/2025 documented as of this encounter Results * US Renal Complete (05/13/2024 12:04 PM EDT) Anatomical Region Laterality Modality Kidney N/A Ultrasound Impressions 05/16/2024 7:26 PM EDT No sonographically evident calculi. Created by: Vikram Connor Signed by: Vikram Connor Signed on: 05/16/2024 19:26 EDT Location: [id number] ?? Narrative 05/16/2024 7:26 PM EDT ??EXAM: RENAL ULTRASOUND INDICATION: History of nephrolithiasis COMPARISON: Ultrasound 01/25/2024 TECHNIQUE: Multiplanar mcintosh-scale imaging of the kidneys was performed using a transabdominal technique. FINDINGS: RIGHT KIDNEY: Measures 8.9 x 6.7 x 5.7 cm in size. Normal echogenicity. No focal mass. ??No hydronephrosis. No nephrolithiasis. 7.2 cm simple cyst, benign, not requiring follow-up. LEFT KIDNEY: Measures 10.1 x 5.0 x 5.7 cm in size. Normal echogenicity. No focal mass. ??No hydronephrosis. No nephrolithiasis. 2.6 cm simple cyst, benign, not requiring follow-up. BLADDER: Normal in appearance and wall thickness. Procedure Note Vikram Connor MD - 05/16/2024 EXAM: RENAL ULTRASOUND INDICATION: History of nephrolithiasis COMPARISON: Ultrasound 01/25/2024 TECHNIQUE: Multiplanar mcintosh-scale imaging of the kidneys was performedusing a transabdominal technique. FINDINGS: RIGHT KIDNEY: Measures 8.9 x 6.7 x 5.7 cm in size. Normal echogenicity. Nofocal mass. No hydronephrosis. No nephrolithiasis. 7.2 cm simple cyst,benign, not requiring follow-up. LEFT KIDNEY: Measures 10.1 x 5.0 x 5.7 cm in size. Normal echogenicity. Nofocal mass. No hydronephrosis. No nephrolithiasis. 2.6 cm simple cyst,benign, not requiring follow-up. BLADDER: Normal in appearance and wall thickness. IMPRESSION: No sonographically evident calculi. Created by: Vikram Connor Signed by: Vikram Connor Signed on: 05/16/2024 19:26 EDT Location: [place] [address] Samuel Winslow MD IMG US PROCEDUR ES documented in this encounter Visit Diagnoses Diagnosis Ureteral calculus, left- Primary Calculus of ureter History of nephrolithiasis History of nephrolithiasis documented in this encounter Additional Health Concerns Assessment Noted Time A fall risk assessment has been complete d for the patient 2024 1:29 PM EDT documented as of this encounter Care Teams Fleet Mechanic Relationship Specialty Start Date End Date Errol Underwood MD PCP - General Family Medicine 02/05/22 Errol Underwood MD [address] [place] [address] PCP - W65+ ACO REACH Attributed Provider 01/18/24 documented as of this encounter
--- OUTSIDE RECORDS SUMMARY | 2024-07-17 09:43 | XMS_ITS | Encounter Summary ---
Author Organization [facility] Address [address] [place] [address] Care Team Providers Care Natural Resources Extension Educator Name Role Phone Errol Underwood MD Primary Care Provider Errol Underwood MD Unavailable [phone] Source Comments Please be aware that You and/or your organization are solely responsible for the use, security, privacy, and any decisions made with any information you receive from [email or web address] Reason for Referral * Imaging (Routine) - Closed Specialty Diagnoses / Procedures Referred By Ryley pantoja Referred To Contact Radiology Diagnoses Ureteral calculus, left Procedures XR Abdomen 1 View Samuel Winslow MD [address] [place] [address] Referral ID Status Reason Start Date Expiration Date Visits Re quested Visits Authorized [id number] Closed 02/25/2024 02/24/2025 1 1 Reason for Visit * Reason Comments Consult Kidney stones * Consultation (Routine) - Closed Specialty Diagnoses / Procedures Referred By Contdarcy pantoja Referred To Contact Urology Diagnoses Kidney stone on left side Errol Underwood MD [address] [place] [address] Samuel Winslow MD [address] [place] [address] Referral ID Status Reason Start Date Expiration Date V isits Requested Visits Authorized [id number] Closed Specialty Services Required 01/29/2024 01/28/2025 1 1 Encounter Details Date Type Department Care Team (Late st Contact Info) Description 02/25/2024 1:30 PM EDT Consult [facility] [place] [address] [place] [address] Samuel iWnslow MD [address] [place] [address] Ureteral calculus, left (Primary Dx); Kidney stone on left side Social History Tobacco Use Types Packs/Day Years [...] often do you attend chur ch or protestant services? Never 03/06/2023 Do you belong to any clubs o r organizations such as buddhist groups, unions, fraternal or athletic groups, or school groups? Yes 03/06/2023 How often do you attend meet ings of the clubs or organizations you belong to? More than 4 times per year 03/06/2023 Are you , , di vorced, , never , or living with a partner? 03/06/2023 AUDIT-C Answer Date Recorded Q1: How often do you have a drink containing alcohol? Never 03/06/2023 Q2: How many drinks containi ng alcohol do you have on a typical day when you are drinking? Patient does not drink Q3: How often do you have si x or more drinks on one occasion? Never 03/06/2023 Overall Financial Resource Strain (CARDIA) Answe r Date Recorded How hard is it for you to pa y for the very basics like food, housing, medical care, and heating? Not hard at all 03/06/2023 PHQ-2 Answer Date Recorded Patient Health Questionnaire-2 Score 0 03/06/2023 [facility] - Occupational Stress [...] place to sleep or slept in a detention (including now)? 2 03/06/2023 Health Literacy Answer Date Recorded How often do you need to hav e someone help you when you read instructions, pamphlets, or other written material from your doctor or pharmacy? Never 01/31/2024 [facility] Food Security Answer Date Recorded Within the past 12 months, t he food you bought just didn't last and you didn't have money to get more. 3 01/31/2024 Within the past 12 months, y ou worried that your food would run out before you got money to buy more. 3 01/31/2024 [facility] Transportation Needs Answer Date Re corded In the past 12 months, has l ack of reliable transportation kept you from medical appointments, meetings, work or from getting things needed for daily living? No 01/31/2024 [facility] Housing Answer Date Recorded What is your living situation today? I have a [facility] place to live 01/31/[address] you li ve. Do you have problems with any of the following? None of the above 01/31/2024 [facility] Safety Answer Date Recorded How often does anyone, david chakraborty family and friends, threaten you with harm? 1 01/31/2024 How often does anyone, david chakraborty family and friends, insult or talk down to you? 1 01/31/2024 How often does anyone, david palmer family and friends, physically hurt you? 1 01/31/2024 How often does anyone, david chakraborty family and friends, scream or curse at you? 1 01/31/2024 [facility] Utilities Answer Date Recorded In the past 12 months has th e electric, gas, oil, or water company threatened to shut off services in your home? No 01/31/2024 Sex and Gender Information Value Date Recorded Sex Assigned at Not on file Gender Identity Not on file Sexual Orientation Not on file documented as of this encounter Last Filed Vital Signs Vital Sign Reading Time Taken Comments Blood Pressure 133/84 02/25/2024 1:07 PM EDT Pulse 73 02/25/2024 1:07 PM EDT Temperature - - Respiratory Rate 16 02/25/2024 1:07 PM EDT Oxygen Saturation 99% 02/25/2024 1:07 PM EDT Inhaled Oxygen Concentration - - Weight 88 kg (194 lb 1.6 oz) 02/25/2024 1:07 PM EDT Height 165.1 cm (5' 5 ) 02/25/2024 1:07 PM EDT Body Mass Index 32.3 02/25/2024 1:07 PM EDT documented in this encounter Progress Notes * Samuel Winslow MD - 02/25/2024 1:30 PM EDT INITIAL ENCOUNTER Name: Claudia MOREL / AGE: 8 1950 / 73 y.o. CSN: [id number] Date of Admission: Chief Complaint Patient presents with Consult Kidney stones History of Present Illness Case of a pleasant 73-year-old female referred to me for further workup and management of a 5 mm left distal ureteral calculus. This was diagnosed with a CT scan performed on January 16 of this year. I reviewed the actual CT scan images and concur with the radiologist's impression. Bilateral renal cysts were also noted. The patient did have a follow up ultrasound study performed on January 27 of this year that failed to demonstrate any evidence of hydronephrosis. The left distal ureteral stone was noted on ultrasound however. Patient presents now for further management and feels fine she deniesany flank pain or hematuria. She reports that this is the 1st stone episode for her. Past Medical History: Diagnosis Date GERD (gastroesophageal reflux disease) History of atrial fibrillation Hyperlipidemia Hypertension Renal stones Urinary tract infection Past Surgical History: Procedure Laterality Date CYSTOSCOPY 10/15/2018 DILATION AND CURETTAGE OF UTERUS 12/03/2015 TONSILLECTOMY PEDS MEDS Tamsulosin Family History Problem Relation Name Age of Onset Diabetes Father Hypertension Father Coronary artery disease Father Social History Socioeconomic History Marital status: Tobacco Use Smoking status: Never Smokeless tobacco: Never Vaping Use Vaping Use: Never used Substance and Sexual Activity Alcohol use: Yes [...] any depression or memory problems Vital Signs 02/25/24 1307 BP: 133/84 BP Location: Left arm Patient Position: Sitting BP Cuff Size: Adult Pulse: 73 Resp: 16 SpO2: 99% Weight: 88 kg (194 lb 1.6 oz) Height: 1.651 m (5' 5 ) @[id number]@ Body mass index is 32.3 kg/m??. Physical Exam GENERAL: The patient appeared [...] respiratory effort. ABDOMEN: Soft, nondistended and nontender. MUSCULOSKELETAL: There was no deformity. There was [...] Problems: There are no active Hospital Problems. 5 mm left distal ureteral calculus not causing any evidence of hydronephrosis and has a good chanceof passing spontaneously. Plan 1. We will provide strainer and have patient strain her urine 2. We will allow more time for stone passage and repeat a KUB in about 2 weeks 3. Return visit in about 2 weeks after the KUB study documented in this encounter Plan of Treatment Upcoming Encounters Date Type Department Care Team (Late st Contact Info) Description 09/06/2024 11:00 AM EST Office Visit [facility] 65+ at [place] [address] [place] [address] Errol Underwood MD [address] [place] [address] 03/16/2025 11:15 AM EDT Office Visit [facility] [place] [address] [place] [address] Samuel Winslow MD [address] [place] [address] documented as of this encounter Results * XR Abdomen 1 View (2024 8:29 AM EDT) Anatomical Region Laterality Modality Abdomen N/A Digital Radiogra phy 03/12/2024 1:02 PM EDT Impressions 03/12/2024 1:02 PM EDT Multiple phleboliths are seen within the pelvis, though one of these could represent a bladder stone given the previous findings. Dictated on: [id number] Electronically Signed By: Dr. Leonid Cr M.D. 03/12/2024 13:02:33 EDT Location: [facility] Narrative 03/12/2024 1:02 PM EDT XR ABDOMEN 1 VIEW: Comparison: 01/17/2024. Findings: Frontal views of the abdomen were obtained. There is no evidence to suggest bowel obstruction. There are no air-fluid levels. There is no significant increased stool burden. There are no masses or pathologic calcifications over the renal fossa. Phleboliths are seen within the pelvis. There are no acute osseous abnormalities or suspicious bony lesions. Procedure Note Leonid Cr MD - 03/12/2024 XR ABDOMEN 1 VIEW: Comparison: 01/17/2024. Findings: Frontal views of the abdomen were obtained. There is no evidence tosuggest bowel obstruction. There are no air-fluid levels. There is nosignificant increased stool burden. There are no masses or pathologiccalcifications over the renal fossa. Phleboliths are seen within thepelvis. There are no acute osseous abnormalities or suspicious bonylesions. IMPRESSION: Multiple phleboliths are seen within the pelvis, though one of these couldrepresent a bladder stone given the previous findings. Dictated on: [id number] Electronically Signed By: Dr. Leonid Cr M.D. 03/12/2024 13:02:33 EDT Location: [facility] Samuel Winslow MD IMG XR PROCEDUR ES documented in this encounter Visit Diagnoses Diagnosis Ureteral calculus, left- Primary Calculus of ureter Kidney stone on left side Ureteral calculus, left Calculus of ureter documented in this encounter Additional Health Concerns Assessment Noted Time A fall risk assessment has been complete d for the patient 03/06/2023 8:14 AM EDT documented as of this encounter Care Teams Natural Resources Extension Educator Relationship Specialty Start Date End Date Errol Underwood MD PCP - General Family Medicine 02/05/22 Errol Underwood MD [address] [place] [address] PCP - W65+ ACO REACH Attributed Provider 01/18/24 documented as of this encounter
--- OUTSIDE RECORDS SUMMARY | 2024-07-17 09:43 | XMS_ITS | Encounter Summary ---
Author Organization [facility] Address [address] [place] [address] Care Team Providers Care Stunt Woman Name Role Phone Errol Underwood MD Primary Care Provider [phone] Errol Underwood MD Unavailable [phone] Source Comments Please be aware that You and/or your organization are solely responsible for the use, security, privacy, and any decisions made with any information you receive from [facility] Reason for Visit * Reason Comments Follow-up Lab follow up . No c oncerns or new issues. No refills today Encounter Details Date Type Department Care Team (Late st Contact Info) Description 08/31/2023 9:30 AM EST Office Visit [facility] Well [facility]+ at [place] [address] [place] [address] Errol Underwood MD [address] [place] [address] Mixed hyperlipidemia (Primary Dx); Hypertension, essential; History of atrial fibrillation; History of malignant neoplasm of endometrium; Osteopenia after menopause; Urge incontinence of urine; Anxiety; Solitary pulmonary nodule present on computed tomography of lung; Encounter for screening mammogram for malignant neoplasm of breast; BMI 30.0-30.9,adult; Gastroesophageal reflux disease with esophagitis, unspecified whether hemorrhage Social History Tobacco Use Types Packs/Day Years [...] week 03/06/2023 How often do you attend [facility] or baptist services? Never 03/06/2023 Do you belong to any clubs o r organizations such as temple groups, unions, fraternal or athletic groups, or [...] Recorded Patient Health Questionnaire-2 Score 0 03/06/2023 [facility] - Occupational Stress [...] exercise (like a brisk walk)? 3 days 03/06/2023 On average, how many minutes do you engage in exercise at this level? 60 min 03/06/2023 Food Insecurity Answer Date Recorded Within the [...] rent on time? 2 03/06/2023 [facility] Places Lived Last Flowsheet Value Most Recent Result Not on file 03/06/2023 In the last 12 months, was t here a time when you did not have a steady place to sleep or slept in a jail (including now)? 2 03/06/2023 Sex and Gender Information Value Date Recorded Sex Assigned at Not on file Gender Identity Not on file Sexual Orientation Not on file documented as of this encounter Last Filed Vital Signs Vital Sign Reading Time Taken Comments Blood Pressure 143/79 08/31/2023 8:58 AM EST Pulse 72 08/31/2023 8:58 AM EST Temperature 36.7 ??C (98 ??F) 08/31/2023 8:58 AM EST Respiratory Rate 16 08/31/2023 8:58 AM EST Oxygen Saturation 100% 08/31/2023 8:58 AM EST Inhaled Oxygen Concentration - - Weight 86.2 kg (190 lb) 08/31/2023 8:58 AM EST Height 167.6 cm (5' 6 ) 08/31/2023 8:58 AM EST Body Mass Index 30.67 08/31/2023 8:58 AM EST documented in this encounter Progress Notes * Errol Underwood MD - 08/31/2023 9:30 AM EST Below is the patient's most recent value for Albumin, ALT, AST, BUN, Calcium, Chloride, Cholesterol, CO2, Creatinine, GFR, Glucose, HDL, Hematocrit, Hemoglobin, Hemoglobin A1C, LDL, Magnesium, Phosphorus, Platelets, Potassium, PSA, Sodium, Triglycerides, and WBC. Lab Results Component Value Date ALBUMIN 3.9 08/24/2023 ALT 12 08/24/2023 AST 15 08/24/2023 BUN 12 08/24/2023 CALCIUM 9.2 08/24/2023 CL 103 08/24/2023 CHOLTOT 137 08/24/2023 CO2 31 08/24/2023 CREATININE 0.69 08/24/2023 EGFR 92 08/24/2023 GLUCOSE 163 (H) 03/17/2023 HDLCHOL 46.00 (L) 02/07/2023 HCT 41.8 08/24/2023 HGB 13.4 08/24/2023 LDL 68 08/24/2023 PLT 264 08/24/2023 K 4.4 08/24/2023 NA 139 08/24/2023 TRIG 120 08/24/2023 WBC 7.1 08/24/2023 Note: for a comprehensive list of the patient's lab results, access the Results Review activity. Subjective Patient ID: Claudia Desai is a 73 y.o. female. Chief Complaint Patient presents with ??? Follow-up Lab follow up . 6 month follow up Working out 3 x a week in the work out room. Going on a cruise later this month. ER visit this summer with nausea/vomiting/diarrhea, self limited course and no further problems. Did have some IV and some nausea medications and improved in a short time. BP elevated on initial check today at 143/79 Mammogram was ordered in February to be done in June 2023 but hasn't been done yet. Was out of town and didn't get it scheduled. The following portions of the chart were reviewed this encounter and updated as appropriate: Review of Systems Objective Physical Exam Vitals reviewed. Constitutional: Appearance: Normal appearance. She is obese. HENT: Head: Normocephalic and atraumatic. Nose: Nose normal. Mouth/Throat: Mouth: Mucous membranes are moist. Eyes: General: Lids are normal. No scleral icterus. Conjunctiva/sclera: Conjunctivae normal. Pupils: Pupils are equal, round, and reactive to light. Neck: Thyroid: No thyromegaly. Vascular: No JVD. Cardiovascular: Rate and Rhythm: Normal rate and regular rhythm. Heart sounds: Normal heart sounds. No murmur heard. No friction rub. No gallop. Pulmonary: Effort: No respiratory distress. Breath sounds: Normal breath sounds. No wheezing or rales. Chest: Chest wall: No tenderness. Abdominal: General: Bowel sounds are normal. There is no distension. Palpations: Abdomen is soft. There is no mass. Tenderness: There is no abdominal tenderness. There is no rebound. Musculoskeletal: General: Normal range of motion. Cervical back: Normal range of motion and neck supple. Skin: General: Skin is warm and dry. Neurological: General: No focal deficit present. Mental Status: She is alert. Psychiatric: Mood and Affect: Mood normal. Assessment/Plan 1. Mixed hyperlipidemia Cholesterol is very well controlled, LDL is at goal under 70, currently at 68. Continue with her atorvastatin, we discussed compliance with the prescription medication. She states she is taking regularly and her labs suggest that to be true as well. Counseled on lifestyle, healthy diet choices etc.. - atorvastatin (Lipitor) 20 MG tablet; Take 1 tablet (20 mg total) by mouth 1 (one) time each day. Dispense: 90 tablet; Refill: 3 - CBC; Future - Comprehensive Metabolic Panel (CMP); Future - Lipid Panel; Future - CBC - Comprehensive Metabolic Panel (CMP) - Lipid Panel 2. Hypertension, essential Poorly controlled, elevated here in the office and patient states that it was a bit on the high side recently at home as well. Going to make an adjustment in her medication, will increase her atenolol dose from 25-50 mg. Monitor blood pressures at home over the next few weeks and will report back with those readings as well as with her pulse rates. - atenolol (Tenormin) 50 MG tablet; Take 1 tablet (50 mg total) by mouth 1 (one) time each day. Dispense: 90 tablet; Refill: 3 3. History of atrial fibrillation Previous episode, resolved completely, has been in sinus rhythm for quite some time, aspirin alone for anticoagulation, continues to follow with Cardiology and currently in agreement on the anticoagulation choices. 4. History of malignant neoplasm of endometrium Followed at [facility] for treatment, no sign of recurrence this history may be contributing to her intermittent urinary symptoms as well. No adjustment this time no sign of recurrence 5. Osteopenia after menopause Osteopenia seen on bone density test last year. Calcium, vitamin-D and she has continuing a weight-bearing exercise routine. Will repeat bone density study in 2024 6. Urge incontinence of urine See above, mild urge incontinence, managing now with wearing a pad occasionally. Strong family history of urinary type complaints and her sister has had some surgeries which have not given her significant relief. She has not interested in any additional treatment at this time, will continue to follow 7. Anxiety Alprazolam on hand occasionally. Using rarely. 8. Solitary pulmonary nodule present on computed tomography of lung Was found incidentally on imaging in the past. She had follow-up CT scans for several years all of which were unchanged and it was determined to be benign. Not requiring any additional follow-up unless there are changes. 9. Encounter for screening mammogram for malignant neoplasm of breast Mammogram was due this June, she ended up being out of town at the time it was supposed to be done and has not rescheduled yet. We discussed this today, she is the order hand and is going to get that scheduled in the upcoming weeks. 10. BMI 30.0-30.9,adult Has lost some weight since her last visit here. Counseled on healthy diet, continued physical activity which she is going to the gym 3 times a week. Monitoring calorie intake and weight loss. 11. Gastroesophageal reflux disease with esophagitis, unspecified whether hemorrhage History of esophagitis seen previous imaging, continue on a PPI - lansoprazole (Prevacid) [address] capsule; TAKE 1 CAPSULE BY MOUTH EVERY DAY BEFORE A MEAL Dispense: 90 capsule; Refill: 3 Patient did not get a flu shot this year, she was sick in February with what she thought was a flu sodecided not to follow through with that. She is up-to-date with immunizations otherwise. We discussed flu season and I would recommend her getting a flu shot next flu season. Going to hold off on anyadditional vaccinations today documented in this encounter Plan of Treatment Upcoming Encounters Date Type Department Care Team (Late st Contact Info) Description 09/06/2024 11:00 AM EST Office Visit [facility] 65+ at [place] [address] [place] [phone] Errol Underwood MD [address] [place] [address] 03/16/2025 11:15 AM EDT Office Visit [facility] [place] [address] [place] [address] Samuel Winslow MD [address] [place] [address] documented as of this encounter Procedures Procedure Name Priority Date/Time Associated Diagnosis Comments CBC WITHOUT DIFFERENTIAL Routine 03/02/2024 8:00 AM EDT Mixed hyperlipidemia LIPID PANEL Routine 03/02/2024 8:00 AM EDT Mixed hyperlipidemia COMPREHENSIVE METABOLIC PANEL Routine 03/02/2024 8:00 AM EDT Mixed hyperlipidemia documented in this encounter Results * Lipid Panel (03/02/2024 8:00 AM EDT) Cholesterol, Total 140 <200 mg/dL [facility] HDL Cholesterol 52 > OR = 50 mg/dL [facility] Triglycerides 96 <150 mg/dL [facility] LDL Cholesterol 70 mg/dL (calc) [facility] Comment: Reference range: <100 Desirable range <100 mg/dL for primary prevention; ?? <70 mg/dL for patients with CHD or diabetic patients with > or = 2 CHD risk factors. LDL-C is now calculated using the Stuart-Quiroga calculation, which is a validated novel method providing better accuracy than the Friedewald equation in the estimation of LDL-C. Stuart SS et al. KIMBERLEY. 2013;310(19): 3568-9526 (http://education.Digital Health Dialog/faq/CUK482) Chol/HDL Ratio 2.7 <5.0 (calc) [facility] Non-HDL Cholesterol 88 <130 mg/dL (calc) [facility] Comment: For patients with diabetes plus 1 major ASCVD risk factor, treating to a non-HDL-C goal of <100 mg/dL (LDL-C of <70 mg/dL) is considered a therapeutic option. Blood Venous blood specimen / Unknown 03/02/2024 8:00 AM EDT 03/02/2024 8:01 AM EDT [facility]ative [facility] - 03/02/2024 11:59 PM EDT FASTING:YES FASTING: YES Errol Underwood MD LAB BLOOD ORDERABLE S [facility] [address] [place] [address] * Comprehensive Metabolic Panel (CMP) (03/02/2024 8:00 AM EDT) Pathologist [facility] Glucose 97 65 - 99 mg/dL [facility] Comment: ? Fasting reference interval BUN 14 7 - 25 mg/dL [facility] Creatinine 0.72 0.60 - 1.00 mg/dL [facility] eGFR 89 > OR = 60 mL/min/1. 73m2 [facility] BUN/Creatinine Ratio SEE NOTE: 6 - 22 (calc) [facility] Comment: ?? Not Reported: BUN and Creatinine are within ?? reference range. ? Sodium 139 135 - 146 mmol/L [facility] Potassium 4.7 3.5 - 5.3 mmol/L [facility] Chloride 102 98 - 110 mmol/L [facility] Carbon Dioxide 29 20 - 32 mmol/L [facility] Calcium 9.0 8.6 - 10.4 mg/dL [facility] Protein, Total 6.4 6.1 - 8.1 g/dL [facility] Albumin 3.9 3.6 - 5.1 g/dL [facility] Globulin 2.5 1.9 - 3.7 g/dL (calc) [facility] A/G Ratio 1.6 1.0 - 2.5 (calc) [facility] Bilirubin, Total 0.5 0.2 - 1.2 mg/dL [facility] Alkaline Phosphatase 82 37 - 153 U/L [facility] AST 18 10 - 35 U/L [facility] ALT 14 6 - 29 U/L [facility] Blood Venous blood specimen / Unknown 03/02/2024 8:00 AM EDT 03/02/2024 8:01 AM EDT Narrative [facility] - 03/02/2024 11:59 PM EDT FASTING:YES FASTING: YES Errol Underwood MD LAB BLOOD ORDERABLE S [facility] [address] [place] [address] * CBC (03/02/2024 8:00 AM EDT) White Blood Cell Count 6.1 3.8 - 10.8 Thousand/u L [facility] Red Blood Cells 4.52 3.80 - 5.10 Million/uL [facility] Hemoglobin 13.6 11.7 - 15.5 g/dL [facility] Hematocrit 41.9 35.0 - 45.0 % [facility] MCV 92.7 80.0 - 100.0 fL [facility] MCH 30.1 27.0 - 33.0 pg [facility] MCHC 32.5 32.0 - 36.0 g/dL [facility] RDW 13.0 11.0 - 15.0 % [facility] Platelet Count 232 140 - 400 Thousand/u L [facility] MPV 10.4 7.5 - 12.5 fL [facility] Blood Venous blood specimen / Unknown 03/02/2024 8:00 AM EDT 03/02/2024 8:01 AM EDT Narrative [facility] - 03/02/2024 11:59 PM EDT FASTING:YES FASTING: YES Errol Underwood MD LAB BLOOD ORDERABLE S [facility] [address] [place] [address] documented in this encounter Visit Diagnoses Diagnosis Mixed hyperlipidemia- Primary Hypertension, essential Unspecified essential hypertension History of atrial fibrillation Personal history of other diseases of circulatory system History of malignant neoplasm of endometrium Personal history of malignant neoplasm of other parts of uterus Osteopenia after menopause Urge incontinence of urine Urge incontinence Anxiety Anxiety state, unspecified Solitary pulmonary nodule present on computed tomography of lung Encounter for screening mammogram for malignant neoplasm of breast BMI 30.0-30.9,adult Gastroesophageal reflux disease with esophagitis, unspecified whether hemorrhage documented in this encounter Additional Health Concerns Assessment Noted Time A fall risk assessment has been complete d for the patient 03/06/2023 8:14 AM EDT documented as of this encounter Care Teams Stunt Woman Relationship Specialty Start Date End Date Errol Underwood MD PCP - General Family Medicine 02/05/22 Errol Underwood MD [address] [place] [address] PCP - PCN-[facility] RE[facility] Attributed Provider 07/20/23 01/17/24 documented as of this encounter
--- OUTSIDE RECORDS SUMMARY | 2024-07-17 09:43 | XMS_ITS | Encounter Summary ---
Author Organization [facility] Address [address] [place] [address] Care Team Providers Care Silk Conditioner Name Role Phone Errol Underwood MD Primary Care Provider [phone] Source Comments Please be aware that You and/or your organization are solely responsible for the use, security, privacy, and any decisions made with any information you receive from [facility] Encounter Details Date Type Department Care Team (Late st Contact Info) Description 03/17/2023 Patient Outreach [facility] Well 65+ at [place] [address] [place] [address] Tabitha Beckham RN Social History Tobacco Use Types Packs/Day Years [...] often do you attend chur ch or jewish services? Never 03/06/2023 Do you belong to any clubs o r organizations such as mormon groups, unions, fraternal or athletic groups, or [...] Recorded Patient Health Questionnaire-2 Score 0 03/06/2023 [facility] - Occupational Stress Questionnaire Answer Date Recorded [...] or rent on time? 2 03/06/2023 [facility] Places Lived Last Flowsheet Value Most Recent Result Not on file 03/06/2023 In the last 12 months, was t here a time when you did not have a steady place to sleep or slept in a skilled nursing (including now)? 2 03/06/2023 Sex and Gender Information Value Date Recorded Sex Assigned at Not on file Gender Identity Not on file Sexual Orientation Not on file documented as of this encounter Progress Notes * Tabitha Beckham RN - 03/17/2023 12:08 PM EDT Transition Of Care Patient: Claudia Desai Sex/Age: 73 y.o. : 1950 ER visit for nausea, vomiting, diarrhea. While in the ER she was feeling better and discharged homewith script for zofran. Spoke w/ spouse yesterday, patient was sleeping. He stated she was still with some nausea. Directed him to have her utilize the zofran as directed and stick with a liquid diet. Today she reports she is doing much better. Did not eat yesterday and used the zofran as needed. Tolerated toast this morning. Discussed she do bland diet, small meals. Educated her on calling us even if after hours if new or worsening symptoms occur. Do we have a copy of the patient's discharge summary? Yes If NO, did you contact Discharge Facility to Request Discharge Summary? Discharge Facility: na Date of Admit: ER 03/17/23 Date of Discharge: ER 03/17/23 Diagnosis/Symptoms: nausea, vomiting, diarrhea Date of TIMI Patient Outreach: 03/17/23 Date of Medication Reconciliation Completed: 03/17/23 Were there any Medication Changes: YES Does Patient have all New Prescribed Medications or Changed Medications at Home: YES Date of Pharmacy Visit: Reconciled by RN Date of Provider TIMI Appointment: At Home Support Is the patient receiving home health care? No Does the patient have a friend or family home care coordinator? Yes, Name of Court Recorder: Spouse Contact Number: Does the patient have all ordered DME equipment: n/a Predictive Model Details The following ED and hospital readmission risks have been identified: non adherence to treatment plan. I have verified that appropriate interventions have been applied to care plan and discussed with patient/caregiver(s). Predictive Model Details No score data available for IP Risk of Unplanned Readmission Review of Systems documented in this encounter Plan of Treatment Upcoming Encounters Date Type Department Care Team (Late st Contact Info) Description 09/06/2024 11:00 AM EST Office Visit [facility] 65+ at [place] [address] [place] [phone] Errol Underwood MD [address] [place] [address] 03/16/2025 11:15 AM EDT Office Visit [facility] [place] [address] [place] [address] Samuel Winslow MD [address] [place] [address] documented as of this encounter Visit Diagnoses Not on filedocumented in this encounter Additional Health Concerns Infection Onset Date Last Indicated Resolved Time COVID-19 Rule-Out 03/17/2023 03/17/2023 03/17/2023 1:59 AM EDT Assessment Noted Time A fall risk assessment has been complete d for the patient 03/06/2023 8:14 AM EDT documented as of this encounter Care Teams Silk Conditioner Relationship Specialty Start Date End Date Errol Underwood MD PCP - General Family Medicine 02/05/22 documented as of this encounter
--- OUTSIDE RECORDS SUMMARY | 2024-07-17 09:43 | XMS_ITS | Encounter Summary ---
Author Organization Replaced by [facility] Address [address] [place] [address] Care Team Providers Care Floor Supervisor Name Role Phone Errol Underwood MD Primary Care Provider Errol Underwood MD Unavailable [phone] Source Comments Please be aware that You and/or your organization are solely responsible for the use, security, privacy, and any decisions made with any information you receive from [employer] Reason for Referral * Imaging (Routine) - Closed Specialty Diagnoses / Procedures Referred By Ryley t Referred To Contact Radiology Diagnoses Ureteral calculus, left Procedures XR Abdomen 1 View Samuel Winslow MD [address] [place] [address] Referral ID Status Reason Start Date Expiration Date Visits Re quested Visits Authorized [id number] Closed 02/25/2024 02/24/2025 1 1 Reason for Visit * Imaging (Routine) - Closed Specialty Diagnoses / Procedures Referred By Ryley pantoja Referred To Contact Radiology Diagnoses Ureteral calculus, left Procedures XR Abdomen 1 View Samuel Winslow MD [address] [place] [address] Referral ID Status Reason Start Date Expiration Date Visits Re quested Visits Authorized [id number] Closed 02/25/2024 02/24/2025 1 1 Encounter Details Date Type Department Care Team (Latest Contact Info) Description 2024 8:20 AM EDT - 2024 11:59 PM EDT Hospital Encounter [facility] [address] [place] [address] Ureteral calculus, left Discharge Disposition: Home or Self Care Social History Tobacco Use Types Packs/Day Years [...] week 03/06/2023 How often do you attend [facility] or restorationist services? Never 03/06/2023 Do you belong to any clubs o r organizations such as restorationism groups, unions, fraternal or athletic groups, or [...] you are drinking? Patient does not drink 08/23/202 4 Q3: How often do you have si x or more drinks on one occasion? Never 2024 Overall Financial Resource Strain (CARDIA) Answe r Date Recorded How hard is it for you to pa y for the very basics like food, housing, medical care, and heating? Not hard at all 03/06/2023 PHQ-2 Answer Date Recorded Patient Health Questionnaire-2 Score 0 2024 [facility] Occupat ional Health - Occupational Stress [...] place to sleep or slept in a fdc (including now)? 2 03/06/2023 [facility] Literacy Answer Date Recorded How often do you need to hav e someone help you when you read instructions, pamphlets, or other written material from your doctor or pharmacy? Never 01/31/2024 [facility] Food Security Answer Date Recorded Within the past 12 months, t he food you bought just didn't last and you didn't have money to get more. 3 01/31/2024 Within the past 12 months, y ou worried that your food would run out before you got money to buy more. 3 01/31/2024 [facility] Transportation Needs Answer Date Re corded In the past 12 months, has l ack of reliable transportation kept you from medical appointments, meetings, work or from getting things needed for daily living? No 01/31/2024 [facility] Housing Answer Date Recorded What is your living situation today? I have a [facility] place to live 01/31/[address] you li ve. Do you have problems with any of the following? None of the above 01/31/2024 [facility] Safety Answer Date Recorded How often [...] scream or curse at you? 1 01/31/2024 [facility] Utilities Answer Date Recorded In the past 12 months has th e electric, gas, oil, or water company threatened to shut off services in your home? No 01/31/2024 Sex and Gender Information Value Date Recorded Sex Assigned at Not on file Gender Identity Not on file Sexual Orientation Not on file documented as of this encounter Medications at Time of Discharge Medication Sig Dispensed Refills Start Date End Date aspirin (aspirin) 81 MG EC tablet Patient stated, Yes, its chewable. atenolol-chlorthalidone (Tenoretic 50) 50-25 MG tabletIndications:Hyperte nsion, essential Take 0.5 tablets by mouth 1 (one) time each day. 45 tablet 3 2024 2025 atorvastatin (Lipitor) 20 MG tabletIndications:Mixed hyperlipidemia Take 1 tablet (20 mg total) by mouth 1 (one) time each day. 90 tablet 3 08/31/2023 08/30/2024 Calcium Carbonate-Vitamin D 600-200 MG-UNIT capsule Take 1 capsule every day by oral route. lansoprazole (Prevacid) [address] capsuleIndications:Gastro esophageal reflux disease with esophagitis, unspecified whether hemorrhage TAKE 1 CAPSULE BY MOUTH EVERY DAY BEFORE A MEAL 90 capsule 3 08/31/2023 ALPRAZolam (Xanax) 0.5 MG tabletIndications:Anxiety Take 1 tablet (0.5 mg total) by mouth at night if needed for anxiety. 30 tablet 1 2024 06/14/2024 documented as of this encounter Plan of Treatment Upcoming Encounters Date Type Department Care Team (Late st Contact Info) Description 09/06/2024 11:00 AM EST Office Visit [facility] Well 65+ at [place] [address] [place] [address] Errol Underwood MD [address] [place] [address] 03/16/2025 11:15 AM EDT Office Visit [facility] [place] [address] [place] [address] Samuel Winslow MD [address] [place] [address] documented as of this encounter Procedures Procedure Name Priority Date/Time Associated Diagnosis Comments XR ABDOMEN 1 VIEW Routine 2024 8:2 9 AM EDT Ureteral calculus, left documented in this encounter Results * XR Abdomen 1 View (2024 8:29 AM EDT) Anatomical Region Laterality Modality Abdomen N/A Digital Radiogra phy 03/12/2024 1:02 PM EDT Impressions 03/12/2024 1:02 PM EDT Multiple phleboliths are seen within the pelvis, though one of these could represent a bladder stone given the previous findings. Dictated on: [id number] Electronically Signed By: Dr. Leonid Cr M.D. 03/12/2024 13:02:33 EDT Location: [facility] [place] 03/12/2024 1:02 PM EDT XR ABDOMEN 1 [...] stone given the previous findings. Dictated on: [id number] Electronically Signed By: Dr. Leonid Cr M.D. 03/12/2024 13:02:33 EDT Location: [facility] Samuel Winslow MD IMG XR PROCEDUR ES documented in this encounter Visit Diagnoses Diagnosis Ureteral calculus, left Calculus of ureter documented in this encounter Additional Health Concerns Assessment Noted Time A fall risk assessment has been complete d for the patient 2024 1:29 PM EDT documented as of this encounter Care Teams Floor Supervisor Relationship Specialty Start Date End Date Errol Underwood MD PCP - General Family Medicine 02/05/22 Errol Underwood MD [address] [place] [address] PCP - W65+ ACO REACH Attributed Provider 01/18/24 documented as of this encounter
--- OUTSIDE RECORDS SUMMARY | 2024-07-17 09:43 | XMS_ITS | Encounter Summary ---
Author Organization [facility] Address [address] [place] [address] Care Team Providers Care Ob Nurse Name Role Phone Errol Underwood MD Primary Care Provider Errol Underwood MD Unavailable [phone] Source Comments Please be aware that You and/or your organization are solely responsible for the use, security, privacy, and any decisions made with any information you receive from [employer] [facility] Encounter Details Date Type Department Care Team (Late st Contact Info) Description 01/18/2024 Patient Outreach [facility] Well 65+ at [place] [address] [place] [address] Tabitha Beckham, RN Social History Tobacco Use Types Packs/Day [...] often do you attend chur ch or faith services? Never 03/06/2023 Do you belong to any clubs o r organizations such as pentecostalism groups, unions, fraternal or athletic groups, or [...] Recorded Patient Health Questionnaire-2 Score 0 03/06/2023 [facility] Answer Date Recorded [...] rent on time? 2 03/06/2023 [facility] Lived Last Flowsheet Value Most Recent Result Not on file 03/06/2023 In the last 12 months, was t here a time when you did not have a steady place to sleep or slept in a prison (including now)? 2 03/06/2023 Sex and Gender Information Value Date Recorded Sex Assigned at Not on file Gender Identity Not on file Sexual Orientation Not on file documented as of this encounter Progress Notes * Tabitha Beckham RN - 01/18/2024 11:20 AM EDT Transition Of Care Patient: Claudia Desai Sex/Age: 73 y.o. : 1950 ED visit yesterday for left flank pain. Imaging shows obstructing left kidney stone with mild hydronephrosis. UA showed trace blood and leukocytes. Discharged home with scripts for keflex 500 mg 4x/day x 7 days, tamsulosin 0.4 mg qd, zofran 4 mg PRN, ibuprofen 600 mg PRN and hydrocodone-acetaminophen 5-325 mg PRN. At present time her pain is improved. She will push fluids. No new concerns. Med list reconciled. Was told by ED she is close to passing the stone. She was directed to follow up with urology but she is wondering if she can just follow up with you instead of urology? Discharge Facility: [facility] Date of Admit: 01/17/24 Date of Discharge: 01/17/24 Diagnosis: left renal calculi, obstructing Symptoms that lead patient to seek out care: left flank pain Do we have a copy of the patient's discharge summary? yes If NO, did you contact Discharge Facility to Request Discharge Summary? NA How is patient feeling since discharge / current complaints or symptoms: much better Did patient attempt to contact the office prior to seeking care at hospital or urgent care? YES/NO If NO why didn't patient contact us? Yes If patient did not contact us before seeking outside care did we reeducate patient on our model: NA Did patient have a fall? no If YES how did patient fall? NA Was patient's visit due to Hypertension, Congestive Heart Failure, Diabetes, Chronic Obstructive Pulmonary Disease, or Asthma? no If YES Did you educate patient on need for Care Management visits with RN? NA Date of First Care Management Visit with RN: NA Date of TIMI Patient Outreach: 01/18/24 Date of Medication Reconciliation Completed: 01/18/24 Were there any Medication Changes: yes Does Patient have all New Prescribed Medications or Changed Medications at Home: Patient picking all prescriptions up today, 01/18/24 Date of Pharmacy Visit: Reconciled by RN Date of Provider TIMI Appointment: TBD At Home Support Is the patient receiving home health care? No Has Home Health scheduled a visit with patient yet? If YES when: DATENo Does the patient have a friend or family day care supervisor? Yes, Name of Finished Cloth Examiner: Spouse Contact Number: See chart Does the patient have all ordered DME equipment: NA Does patient know how to use DME equipment? NA If NO was patient educated? No Date: NA Predictive Model Details The following ED and hospital readmission risks have been identified: non adherence to treatment plan. I have verified that appropriate interventions have been applied to care plan and discussed with patient/caregiver(s). Predictive Model Details No score data available for IP Risk of Unplanned Readmission Review of Systems * Errol Underwood MD - 01/18/2024 11:20 AM EDT If she is feeling better then yes I can see her and order follow up imaging and see if will need urology for additional treatment. * Tabitha Beckham RN - 01/18/2024 11:20 AM EDT Appt scheduled for 01/22/24. documented in this encounter Plan of Treatment Upcoming Encounters Date Type Department Care Team (Late st Contact Info) Description 09/06/2024 11:00 AM EST Office Visit [facility] 65+ at [place] [address] [place] [phone] Errol Underwood MD [address] [place] [address] 03/16/2025 11:15 AM EDT Office Visit [facility] [place] [address] [place] [phone] Samuel Winslow MD [address] [place], [place] [id number] documented as of this encounter Visit Diagnoses Not on filedocumented in this encounter Additional Health Concerns Assessment Noted Time A fall risk assessment has been complete d for the patient 03/06/2023 8:14 AM EDT documented as of this encounter Care Teams Ob Nurse Relationship Specialty Start Date End Date Errol Underwood MD PCP - General Family Medicine 02/05/22 Errol Underwood MD [address] [place] [address] PCP - W65+ ACO REACH Attributed Provider 01/18/24 documented as of this encounter
--- OUTSIDE RECORDS SUMMARY | 2024-07-17 09:43 | XMS_ITS | Encounter Summary ---
Author Organization [facility] Address [address] [place] [address] Care Team Providers Care Travel Registered Nurse Icu Name Role Phone Errol Underwood MD Primary Care Provider [phone] Errol Underwood MD Unavailable [phone] Source Comments Please be aware that You and/or your organization are solely responsible for the use, security, privacy, and any decisions made with any information you receive from [facility] Encounter Details Date Type Department Care Team (Latest Contact Info) Description 01/22/2024 Travel Social History Tobacco Use Types Packs/Day Years [...] often do you attend chur ch or synagogue services? Never 03/06/2023 Do you belong to any clubs o r organizations such as gnosticism groups, unions, fraternal or athletic groups, or [...] or rent on time? 2 03/06/2023 [facility] L[facility] Last Flowsheet Value Most Recent Result Not on file 03/06/2023 In the last 12 months, was t here a time when you did not have a steady place to sleep or slept in a usp (including now)? 2 03/06/2023 Sex and Gender Information Value Date Recorded Sex Assigned at Not on file Gender Identity Not on file Sexual Orientation Not on file documented as of this encounter Plan of Treatment Upcoming Encounters Date Type Department Care Team (Late st Contact Info) Description 09/06/2024 11:00 AM EST Office Visit [facility] Well 65+ at [place] [address] [place] [phone] Errol Underwood MD [address] [place] [address] 03/16/2025 11:15 AM EDT Office Visit [facility] [place] [address] [place] [address] Samuel Winslow MD [address] [place] [address] documented as of this encounter Visit Diagnoses Not on filedocumented in this encounter Additional Health Concerns Assessment Noted Time A fall risk assessment has been complete d for the patient 03/06/2023 8:14 AM EDT documented as of this encounter Care Teams Travel Registered Nurse Icu Relationship Specialty Start Date End Date Errol Underwood MD PCP - General Family Medicine 02/05/22 Errol Underwood MD [address] [place] [address] PCP - W65+ ACO REACH Attributed Provider 01/18/24 documented as of this encounter
--- OUTSIDE RECORDS SUMMARY | 2024-07-17 09:43 | XMS_ITS | Encounter Summary ---
Author Organization [facility] Address [address] [place] [address] Care Team Providers Care Slag Expander Name Role Phone Errol Underwood MD Primary Care Provider Errol Underwood MD Unavailable [phone] Source Comments Please be aware that You and/or your organization are solely responsible for the use, security, privacy, and any decisions made with any information you receive from [email or web address] Reason for Visit * Reason Comments Medicare Annual Wellness Visit Subsequen t Lab follow up . No concerns or new issues . Patient want to talk about atenolol, her BP is been low . Encounter Details Date Type Department Care Team (Late Contact Info) Description 2024 4:00 PM EDT Office Visit [facility] Well 65+ at [place] [address] [place] [address] Errol Underwood MD [address] [place] [address] Medicare annual wellness visit, subsequent (Primary Dx); Kidney stone on left side; Hydronephrosis of left kidney; Excessive gas; Atherosclerosis of abdominal aorta (HCC); Mixed hyperlipidemia; Hypertension, essential; History of atrial fibrillation; History of malignant neoplasm of endometrium; Osteopenia after menopause; BMI 32.0-32.9,adult; Anxiety Social History Tobacco Use Types Packs/Day [...] 03/06/2023 How often do you attend chur or mormon services? Never 03/06/2023 Do you belong to any clubs o r organizations such as advent groups, unions, fraternal or athletic groups, or [...] Recorded Patient Health Questionnaire-2 Score 0 2024 [facility] - Occupational Stress [...] rent on time? 2 03/06/2023 [facility] Places Lived Last Flowsheet Value Most Recent Result Not on file 03/06/2023 In the last 12 months, was t here a time when you did not have a steady place to sleep or slept in a chcf (including now)? 2 03/06/2023 Health Literacy Answer Date Recorded How often do you need to hav e someone help you when you read instructions, pamphlets, or other written material from your doctor or pharmacy? Never 01/31/2024 [facility] Food Security Answer Date Recorded Within the past 12 months, t he food you bought just didn't last and you didn't have money to get more. 3 01/31/2024 Within the past 12 months, y ou worried that your food would run out before you got money to buy more. 3 01/31/2024 [facility] Transportation Needs Answer Date Re corded In the past 12 months, has l ack of reliable transportation kept you from medical appointments, meetings, work or from getting things needed for daily living? No 01/31/2024 [facility] Housing Answer Date Recorded What is your living situation today? I have a [facility] [place] place to live 01/31/[address] you li ve. Do you have problems with any of the following? None of the above 01/31/2024 [facility] Safety Answer Date Recorded How often [...] scream or curse at you? 1 01/31/2024 [facility] Utilities Answer Date Recorded In the past 12 months has th e [employer], gas, oil, or water company threatened to shut off services in your home? No 01/31/2024 Sex and Gender Information Value Date Recorded Sex Assigned at Not on file Gender Identity Not on file Sexual Orientation Not on file documented as of this encounter Last Filed Vital Signs Vital Sign Reading Time Taken Comments Blood Pressure 147/74 2024 2:51 PM EDT Pulse 66 2024 2:51 PM EDT Temperature 37.1 ??C (98.7 ??F) 2024 2:51 PM ED T Respiratory Rate 16 2024 2:51 PM EDT Oxygen Saturation 100% 2024 2:51 PM EDT Inhaled Oxygen Concentration - - Weight 87.5 kg (193 lb) 2024 2:51 PM EDT Height 165.1 cm (5' 5 ) 2024 2:51 PM EDT Body Mass Index 32.12 2024 2:51 PM EDT documented in this encounter Progress Notes * Errol Underwood MD - 2024 4:00 PM EDT Patient is here for Medicare Annual Wellness Visit. The following was reviewed and updated: Medication list, family, social, surgical, past medical history, immunizations and patient's care team (PCP and Specialists). Medicare Health Risk Assessment: How would you rate your overall health? good Pain Score: 0 - No pain Pain Assessment: Wt Readings from Last 1 Encounters: 03/11/24 87.5 kg (193 lb) BP Readings from Last 1 Encounters: 03/11/24 (!) 147/74 IMMUNIZATIONS: Immunization History Administered Date(s) Administered Influenza, High Dose Seasonal, Preservative Free 05/12/2018 Influenza, High-dose, Quadrivalent 07/30/2021 Influenza, Unspecified 05/18/2019 Influenza, injectable, quadrivalent 05/20/2019 Influenza, injectable, quadrivalent, preservative free 04/28/2020 Influenza, seasonal, injectable 06/08/2015, 06/09/2016 Influenza, trivalent, adjuvanted 05/18/2019 Pneumococcal Conjugate PCV 13 06/29/2018 Pneumococcal Polysaccharide PPV23 07/25/2019 SCREENING: Date of last colon cancer screenin years ago Dr. Au, she is going to call them for a follow up as Dr. Au is no longer there. Type: Colonoscopy Do you have a family history of colon cancer? No Date of last Mammogram (Women age 50-74 every 2 years):10/26/2023 Was it normal? Yes Do you have a family history of breast cancer? No Date of last Dexa Scan (Women >65 yr old every 2 years): 10/08/2022 HEALTH MAINTENANCE: Health Maintenance Due Topic Date Due DTaP/Tdap/Td Vaccines (1 - Tdap) Never done Hepatitis A Vaccines (1 of 2 - Risk 2-dose series) Never done Zoster Vaccines (1 of 2) Never done Hepatitis B Vaccines (1 of 3 - Risk 3-dose series) Never done Influenza Vaccine (1) 03/20/2024 ADVANCE DIRECTIVES Do you have an advance directive, living will, power of attorney law clerk, or health care document that contains your wish for end of life care? Yes Would you like additional information on advance directives? No SMOKING ASSESSMENT Tobacco Use: Low Risk (2024) Patient History Smoking Tobacco Use: Never Smokeless Tobacco Use: Never Passive Exposure: Not on file If you are a current smoker or have smoked in the past, have you had a lung cancer screening CT scan? no (age 55-80, 30 pack years, current smoker or quit in last 15 years) VISION AND HEARING IMPAIRMENT No results found. Any recent vision changes? No Any recent hearing changes? No HOSPITALIZATIONS In the previous 12 months, have you stayed overnight as a patient in the hospital? Yes If yes, about how many times? 2 In the previous month, have you gone to an Urgent Care or Emergency Room? Yes COGNITIVE ASSESSMENT Do you have any trouble understanding instructions? No Have you had any problems with your long-term memory? (for example, where were you born?) No Have you had any problems with your short-term memory? (for example, what did you have for dinner last night?) No DIET AND EXERCISE Are you physically active? (for example, walking, group classes, stationary bike) Physical Activity: Insufficiently Active (01/31/2024) Physical Activity Physical Activity - Days Per Week Most Recent Result: 3 days Physical Activity - Minutes Per Session Most Recent Result: 40 min How is your diet? Eats a healthy balanced diet Body mass index is 32.12 kg/m??. ACTIVITIES OF DAILY LIVING (BUCKNER) BUCKNER ADL Bathin Dressin Toiletin Transferrin Continence: 1 Feedin BUCKNER ADL Total Points:: 6 INSTRUMENTAL ACTIVITIES OF DAILY LIVING Are you able to grocery shop with limited or no assistance?Yes Are you able to manage medications with limited or no assistance?Yes Are you able to manage money with limited or no assistance?Yes Are you able to prepare meals with limited or no assistance?Yes Are you able to use the phone with limited or no assistance?Yes HOME SAFETY Do you feel safe in your home? Yes Do you have safe ely and stairs in your home? Yes Do you have adequate lighting in your home? Yes Are your appliances in working order? Yes Do you have working smoke and CO detectors in your home? Yes Do you have safety devices in your bathroom such as hand bars?Yes Do you wear your seat belt while in vehicles? Yes FALL RISK One or more falls in the last year: No How many times: No Value exists for the APPLICATION TECHNICAL DESIGNER: EPIC#[id number] STEADI Score: 0 ADDITIONAL HEALTH QUESTIONS: Are you up to date with your dental care?Yes Depression Screening Performed Patient Health Questionnaire-2 Score: 0 - Up to 15 minutes: PHQ-2/PHQ-9 reviewed. These results were discussed with the patient and the appropriate plan was developed as needed. Screening for Alcohol Abuse Performed Alcohol Use: Not At Risk (2024) AUDIT-C Frequency of Alcohol Consumption: Never Average Number of Drinks: Patient does not drink Frequency of Binge Drinking: Never - Up to 15 minutes: AUDIT questionnaire reviewed. These results were discussed with the patient andthe appropriate plan was developed as needed. Assessment and Plan: Medicare Annual Wellness Visit Performed - Reviewed pertinent screening tests. See history of present illness and orders. - Vaccines reviewed and updated - Medications reviewed and updated - Diet and activity level discussed - Falls Risk Screening and Functional Screening Performed - Age appropriate health maintenance discussed. Patient verbalized understanding Subjective Patient ID: Claudia Desai is a 74 y.o. female. Chief Complaint Patient presents with Medicare Annual Wellness Visit Subsequent Lab follow up . No concerns or new issues . Patient want to talk about atenolol, her BP is been low. Had an episode of syncope that was likely due to the tamsulosin KUB was this morning to follow up on the stones The following portions of the chart were reviewed this encounter and updated as appropriate: Tobacco Allergies Meds Problems Med Hx Surg Hx Fam Hx Review of Systems Objective Physical Exam Vitals [...] Mood and Affect: Mood normal. Assessment/Plan 1. Medicare annual wellness visit, subsequent 74 yo female presents today for annual exam. Counseled on healthy diet, exercise and the need for decreased calorie intake and weight loss. Up to date with screening and discussed recommended immunizations. Questionnaires as above 2. Kidney stone on left side Doing better since her last episode, had a follow up KUB which we looked at, hasn't been read by radiology. Not having any symptoms at this time. Going to continue to follow up with Urology. 3. Hydronephrosis of left kidney Improved after the stone treatment. 4. Excessive gas Doing some OTC treatment and some diet changes, still a bit of a problem, going to monitor only at this time, continue with elimination diet. 5. Atherosclerosis of abdominal aorta (HCC) Seen on CT scan, treatment with statin for prevention of progression. 6. Mixed hyperlipidemia See above, on atorvastatin and is at goal with LDL at 70, continue with diet changes and medication. - CBC; Future - Comprehensive Metabolic Panel (CMP); Future - Lipid Panel; Future - CBC - Comprehensive Metabolic Panel (CMP) - Lipid Panel 7. Hypertension, essential Not well controlled, going to make a change as she was feeling better on the lower dose of atenolol, going to add chlorthalidone and will do 25/12.5 mg and monitor home readings and lab follow up. - atenolol-chlorthalidone (Tenoretic 50) 50-25 MG tablet; Take 0.5 tablets by mouth 1 (one) time each day. Dispense: 45 tablet; Refill: 3 8. History of atrial fibrillation Previous episode, has resolved and is now in sinus, following with cardiology and on aspirin alone for anticoagulation. 9. History of malignant neoplasm of endometrium No sign of recurrence 10. Osteopenia after menopause Calcium and Vit D and weight bearing episode and will repeat in 2024 11. BMI 32.0-32.9,adult Counseled on healthy diet and the need for decrease calorie intake and the need for weight loss. 12. Anxiety Has been using this at night as needed, understands the risks and benefits, no change at this time. - ALPRAZolam (Xanax) 0.5 MG tablet; Take 1 tablet (0.5 mg total) by mouth at night if needed for anxiety. Dispense: 30 tablet; Refill: 1 documented in this encounter Plan of Treatment Upcoming Encounters Date Type Department Care Team (Late st Contact Info) Description 09/06/2024 11:00 AM EST Office Visit [facility] Well 65+ at [place] [address] [place] [address] Errol Underwood MD [address] [place], [place] [id number] 03/16/2025 11:15 AM EDT Office Visit [facility] [place] [address] [place] [address] Samuel Winslow MD [address] [place] [address] Scheduled Orders Name Type Priority Associated Diagnoses Orde r Schedule CBC Lab Routine Mixed hyperlipidemia Expected: 09/11/2024, Expires: 2025 Comprehensive Metabolic Panel (CMP) Lab Routine Mixed hyperlipidemia Expected: 09/11/2024, Expires: 2025 Lipid Panel Lab Routine Mixed hyperlipidemia Expected: 09/11/2024, Expires: 2025 documented as of this encounter Visit Diagnoses Diagnosis Medicare annual wellness visit, subsequent- Primary Kidney stone on left side Hydronephrosis of left kidney Hydronephrosis Excessive gas Atherosclerosis of abdominal aorta (HCC) Atherosclerosis of aorta Mixed hyperlipidemia Hypertension, essential Unspecified essential hypertension History of atrial fibrillation Personal history of other diseases of circulatory system History of malignant neoplasm of endometrium Personal history of malignant neoplasm of other parts of uterus Osteopenia after menopause BMI 32.0-32.9,adult Anxiety Anxiety state, unspecified documented in this encounter Additional Health Concerns Assessment Noted Time A fall risk assessment has been complete d for the patient 2024 1:29 PM EDT documented as of this encounter Care Teams Slag Expander Relationship Specialty Start Date End Date Errol Underwood MD PCP - General Family Medicine 02/05/22 Errol Underwood MD [address] [place] [id number] PCP - W65+ ACO REACH Attributed Provider 01/18/24 documented as of this encounter
--- OUTSIDE RECORDS SUMMARY | 2024-07-17 09:43 | XMS_ITS | Encounter Summary ---
Author Organization [facility] Address [address] [place] [address] Care Team Providers Care Cemetery Keeper Name Role Phone Errol Underwood MD Primary Care Provider [phone] Errol Underwood MD Unavailable [phone] Source Comments Please be aware that You and/or your organization are solely responsible for the use, security, privacy, and any decisions made with any information you receive from [email or web address] Encounter Details Date Type Department Care Team (Latest Contact Info) Description 01/17/2024 Travel Social History Tobacco Use Types Packs/Day [...] often do you attend chur ch or uatsdin services? Never 03/06/2023 Do you belong to any clubs o r organizations such as yazdanism groups, unions, fraternal or athletic groups, or [...] Recorded Patient Health Questionnaire-2 Score 0 03/06/2023 [facility] - Occupational [...] or rent on time? 2 03/06/2023 [facility] Lived Last Flowsheet Value Most Recent Result Not on file 03/06/2023 In the last 12 months, was t here a time when you did not have a steady place to sleep or slept in a fpc (including now)? 2 03/06/2023 Sex and Gender Information Value Date Recorded Sex Assigned at Not on file Gender Identity Not on file Sexual Orientation Not on file documented as of this encounter Plan of Treatment Upcoming Encounters Date Type Department Care Team (Late st Contact Info) Description 09/06/2024 11:00 AM EST Office Visit [facility] Well 65+ at [place] [address] [place] [id number] Errol Underwood MD [address] [place] [address] 03/16/2025 11:15 AM EDT Office Visit [facility] at [place] [address] [place] [address] Samuel Winslow MD [address] [place] [address] documented as of this encounter Visit Diagnoses Not on filedocumented in this encounter Additional Health Concerns Assessment Noted Time A fall risk assessment has been complete d for the patient 03/06/2023 8:14 AM EDT documented as of this encounter Care Teams Cemetery Keeper Relationship Specialty Start Date End Date Errol Underwood MD PCP - General Family Medicine 02/05/22 Errol Underwood MD [address] [place] [address] PCP - [place] ACO REACH Attributed Provider 07/20/23 01/17/24 documented as of this encounter
--- OUTSIDE RECORDS SUMMARY | 2024-07-17 09:43 | XMS_ITS | Encounter Summary ---
Author Organization [facility] Address [address] [place] [address] Care Team Providers Care Boating Safety Officer Name Role Phone Errol Underwood MD Primary Care Provider Errol Underwood MD Unavailable [phone] Source Comments Please be aware that You and/or your organization are solely responsible for the use, security, privacy, and any decisions made with any information you receive from [employer] Reason for Referral * Imaging (Routine) - Closed Specialty Diagnoses / Procedures Referred By Ryley pantoja Referred To Contact Radiology Diagnoses Kidney stone on left side Hydronephrosis of left kidney Procedures US Renal Complete Errol Underwood MD [address] [place] [address] Referral ID Status Reason Start Date Expiration Date Visits Re quested Visits Authorized [id number] Closed 01/22/2024 01/21/2025 1 1 Reason for Visit * Reason Comments Follow-up ED follow up .( Kidn ey stone ) Encounter Details Date Type Department Care Team (Late Contact Info) Description 01/22/2024 8:30 AM EDT Office Visit [facility] Well 65+ at [place] [address] [place] [address] Errol Underwood MD [address] [place] [address] Kidney stone on left side (Primary Dx); Hydronephrosis of left kidney; Excessive gas; Atherosclerosis of abdominal aorta (HCC) Social History Tobacco Use Types Packs/Day Years [...] often do you attend chur ch or pentecostal services? Never 03/06/2023 Do you belong to any clubs o r organizations such as orthodoxy groups, unions, fraternal or athletic groups, or [...] Recorded Patient Health Questionnaire-2 Score 0 03/06/2023 [facility] of Occupat ional Health - Occupational Stress [...] place to sleep or slept in a half-way (including now)? 2 03/06/2023 Sex and Gender Information Value Date Recorded Sex Assigned at Not on file Gender Identity Not on file Sexual Orientation Not on file documented as of this encounter Last Filed Vital Signs Vital Sign Reading Time Taken Comments Blood Pressure 139/85 01/22/2024 8:08 AM EDT Pulse - - Temperature 36.3 ??C (97.4 ??F) 01/22/2024 8:08 AM ED T Respiratory Rate 16 01/22/2024 8:08 AM EDT Oxygen Saturation 98% 01/22/2024 8:08 AM EDT Inhaled Oxygen Concentration - - Weight 87.5 kg (193 lb) 01/22/2024 8:08 AM EDT Height 167.6 cm (5' 6 ) 01/22/2024 8:08 AM EDT Body Mass Index 31.15 01/22/2024 8:08 AM EDT documented in this encounter Progress Notes * Errol Underwood MD - 01/22/2024 8:30 AM EDT Subjective Patient ID: Claudia Desai is a 73 y.o. female. Chief Complaint Patient presents with Follow-up ED follow up .( Kidney stone ) ER visit for abdominal pain on Tuesday 01/[address] to be an obstructing kidney stone with some hydronephrosis. Was given pain meds, tamsulosin and recommended to see urology. She is feeling much better and presents today to see what the need for follow up is. She has stopped the tamsulosin already once she was feeling better. Did take antibiotics and she has continued that. Stopped the pain medications. Took the tamsulosin for only a couple days and that caused her t Pain she felt was sudden but when she was thinking about it started the day before and was coming and going. She has been doing a smoothie in the morning and has been using a lot of spinach and beets The following portions of the chart were reviewed this encounter and updated as appropriate: Review of Systems Objective Physical Exam Vitals reviewed. Constitutional: General: She is not in acute distress. Appearance: She is normal weight. Cardiovascular: Rate and Rhythm: Normal rate and regular rhythm. Pulses: Normal pulses. Heart sounds: Normal heart sounds. Pulmonary: Effort: Pulmonary effort is normal. Breath sounds: Normal breath sounds. Abdominal: General: Bowel sounds are normal. Palpations: Abdomen is soft. Tenderness: There is no abdominal tenderness. There is no right CVA tenderness, left CVA tenderness, guarding or rebound. Neurological: Mental Status: She is alert. Assessment/Plan 1. Kidney stone on left side Patient with severe pain on ThursdayJanuary 16, this was unrelenting and she presented to the emergency department. CT scan confirmed a left-sided kidney stone causing obstruction and resultant hydronephrosis. She was treated with pain medication, IV fluids and given a prescription for tamsulosin. She took that medication for several days with significant improvement and stop that medication already. She is back to her baseline, did not notice any stone or gravelly discharge in urine. She never did have any blood. At this point going to order some imaging to follow-up on the hydronephrosis to ensure that it has resolved. She is hold off on seeing a urologist as long as she is symptom free. Upon taking a better history she had recently added a significant amount of spinach to a smoothie in the morning, also added beats and as we went over these the oxalate levels in these are very high, likely caused a calcium oxalate stone. She is going to make some diet changes to try to prevent an additional stone formation and if these changes work I do not see a reason for her to follow up with Urology at all. - US Renal Complete; Future 2. Hydronephrosis of left kidney See above, imaging to ensure resolution of hydronephrosis, if it is still present or if there are additional stones urology may have a role. - US Renal Complete; Future 3. Excessive gas Discussed diet changes playing a role in this as she has made some adjustments to her intake working on health and weight loss. Discussed [id number] changes that can be made as well. Will continue to discuss and follow-up. 4. Atherosclerosis of abdominal aorta (HCC) CT scan showing the stone also incidentally showed atherosclerosis of the abdominal aorta. She is on statin medication for prevention of progression of disease. documented in this encounter Plan of Treatment Upcoming Encounters Date Type Department Care Team (Late st Contact Info) Description 09/06/2024 11:00 AM EST Office Visit [facility] Well 65+ at [place] [address] [place] [address] Errol Underwood MD [address] [place] [address] 03/16/2025 11:15 AM EDT Office Visit [facility] at [place] [address] [place] [address] Samuel Winslow MD [address] [place] [address] documented as of this encounter Results * US Renal Complete (01/25/2024 1:17 PM EDT) Anatomical Region Laterality Modality Kidney N/A Ultrasound Impressions 01/28/2024 7:06 PM EDT Patient's previously reported left UVJ stone appears sonographically conspicuous on the current exam. Bilateral renal cysts. No obvious hydronephrosis in the current exam. Created by: Curt Nj Signed by: Curt Nj Signed on: 01/28/2024 19:06 EDT Location: [id number] ?? Narrative 01/28/2024 7:06 PM EDT ??EXAM: RENAL ULTRASOUND INDICATION: History of cysts COMPARISON: CT abdomen and pelvis 01/17/2024 TECHNIQUE: Multiplanar mcintosh-scale imaging of the kidneys was performed using a transabdominal technique. FINDINGS: RIGHT KIDNEY: Measures 11.0 x 5.7 x 6.0 cm in size. Normal echogenicity. Right renal cyst measuring up to 7.8 x 7.1 x 5 cm. ??No hydronephrosis. No nephrolithiasis. LEFT KIDNEY: Measures 11.8 x 5.2 x 6.3 cm in size. Normal echogenicity. Left renal cysts measuring up to 2.0 x 2.0 x 1.9 cm ??No hydronephrosis. No nephrolithiasis. BLADDER: Echogenic density in the expected distribution of the left ureterovesicular junction measuring up to 6 mm likely correlates to previously seen left UVJ stone on 01/17/2024 Procedure Note Curt Nj MD - 01/28/2024 EXAM: RENAL ULTRASOUND INDICATION: History of cysts COMPARISON: CT abdomen and pelvis 01/17/2024 TECHNIQUE: Multiplanar mcintosh-scale imaging of the kidneys was performedusing a transabdominal technique. FINDINGS: RIGHT KIDNEY: Measures 11.0 x 5.7 x 6.0 cm in size. Normal echogenicity.Right renal cyst measuring up to 7.8 x 7.1 x 5 cm. No hydronephrosis. Nonephrolithiasis. LEFT KIDNEY: Measures 11.8 x 5.2 x 6.3 cm in size. Normal echogenicity.Left renal cysts measuring up to 2.0 x 2.0 x 1.9 cm No hydronephrosis. Nonephrolithiasis. BLADDER: Echogenic density in the expected distribution of the leftureterovesicular junction measuring up to 6 mm likely correlates topreviously seen left UVJ stone on 01/17/2024 IMPRESSION: Patient's previously reported left UVJ stone appears sonographicallyconspicuous on the current exam. Bilateral renal cysts. No obvious hydronephrosis in the current exam. Created by: Curt Nj Signed by: Curt Nj Signed on: 01/28/2024 19:06 EDT Location: [place] [id number] Errol Underwood MD IMG US PROCEDURES documented in this encounter Visit Diagnoses Diagnosis Kidney stone on left side- Primary Hydronephrosis of left kidney Hydronephrosis Excessive gas Atherosclerosis of abdominal aorta (HCC) Atherosclerosis of aorta Kidney stone on left side Hydronephrosis of left kidney Hydronephrosis documented in this encounter Additional Health Concerns Assessment Noted Time A fall risk assessment has been complete d for the patient 03/06/2023 8:14 AM EDT documented as of this encounter Care Teams Boating Safety Officer Relationship Specialty Start Date End Date Errol Underwood MD PCP - General Family Medicine 02/05/22 Errol Underwood MD [address] [place] [address] PCP - W65+ ACO REACH Attributed Provider 01/18/24 documented as of this encounter
--- OUTSIDE RECORDS SUMMARY | 2024-07-17 09:43 | XMS_ITS | Encounter Summary ---
[facility] Address [address] [place] [address] Care Team Providers Care Investment Executive Name Role Phone Errol Underwood MD Primary Care Provider [phone] Errol Underwood MD Unavailable [phone] Source Comments Please be aware that You and/or your organization are solely responsible for the use, security, privacy, and any decisions made with any information you receive from [facility] Encounter Details Date Type Department Care Team (Latest Contact Info) Description 08/31/2023 Travel Social History Tobacco Use Types Packs/Day [...] often do you attend chur ch or congregational services? Never 03/06/2023 Do you belong to any clubs o r organizations such as latter day groups, unions, fraternal or athletic groups, or [...] Recorded Patient Health Questionnaire-2 Score 0 03/06/2023 [facility] [place] of Occupat ional Health - Occupational Stress [...] or rent on time? 2 03/06/2023 [facility] Lived Last Flowsheet Value Most Recent Result Not on file 03/06/2023 In the last 12 months, was t here a time when you did not have a steady place to sleep or slept in a fdc (including now)? 2 03/06/2023 Sex and Gender Information Value Date Recorded Sex Assigned at Not on file Gender Identity Not on file Sexual Orientation Not on file documented as of this encounter Plan of Treatment Upcoming Encounters Date Type Department Care Team (Late st Contact Info) Description 09/06/2024 11:00 AM EST Office Visit [facility] Well 65+ at [place] [address] [place] [id number] Errol Underwood MD [address] [place] [address] 03/16/2025 11:15 AM EDT Office Visit [facility] Urology at [place] [address] [place] [address] Samuel Winslow MD [address] [place] [address] documented as of this encounter Visit Diagnoses Not on filedocumented in this encounter Additional Health Concerns Assessment Noted Time A fall risk assessment has been complete d for the patient 03/06/2023 8:14 AM EDT documented as of this encounter Care Teams Investment Executive Relationship Specialty Start Date End Date Errol Underwood MD PCP - General Family Medicine 02/05/22 Errol Underwood MD [address] [place] [address] PCP - PCN-[place] ACO REACH Attributed Provider 07/20/23 01/17/24 documented as of this encounter
--- OUTSIDE RECORDS SUMMARY | 2024-07-17 09:43 | XMS_ITS | Encounter Summary ---
Author Organization [facility] Address [address] [place] [address] Care Team Providers Care Grind Operator Name Role Phone Errol Underwood MD Primary Care Provider Errol Underwood MD Unavailable [phone] Source Comments Please be aware that You and/or your organization are solely responsible for the use, security, privacy, and any decisions made with any information you receive from [employer] Encounter Details Date Type Department Care Team (Late st Contact Info) Description 09/04/2023 Telephone [facility] Well 65+ at [place] [address] [place] [address] Lora Mendoza LPN Social History Tobacco Use Types Packs/Day Years [...] often do you attend chur ch or amish services? Never 03/06/2023 Do you belong to any clubs o r organizations such as protestant groups, unions, fraternal or athletic groups, or [...] Recorded Patient Health Questionnaire-2 Score 0 03/06/2023 [facility] of Occupat ional [facility] - Occupational Stress Questionnaire Answer Date Recorded [...] rent on time? 2 03/06/2023 [facility] Places Lived Last Flowsheet Value Most Recent Result Not on file 03/06/2023 In the last 12 months, was t here a time when you did not have a steady place to sleep or slept in a senior care (including now)? 2 03/06/2023 Sex and Gender Information Value Date Recorded Sex Assigned at Not on file Gender Identity Not on file Sexual Orientation Not on file documented as of this encounter Miscellaneous Notes * Telephone Encounter - Lora Mendoza LPN - 09/04/2023 2:13 PM EST Patient has been monitoring her blood pressures and her heart rates have been 55, 58 when her bloodpressures have been 133/76. She wants to know if her heart rate is okay. documented in this encounter Plan of Treatment Upcoming Encounters Date Type Department Care Team (Late st Contact Info) Description 09/06/2024 11:00 AM EST Office Visit [facility] Well 65+ at [place] [address] [place] [address] Errol Underwood MD [address] [place] [address] 03/16/2025 11:15 AM EDT Office Visit [facility] at [place] [address] [place] [address] Samuel Winslow MD [address] [place] [address] documented as of this encounter Visit Diagnoses Not on filedocumented in this encounter Additional Health Concerns Assessment Noted Time A fall risk assessment has been complete d for the patient 03/06/2023 8:14 AM EDT documented as of this encounter Care Teams Grind Operator Relationship Specialty Start Date End Date Errol Underwood MD PCP - General Family Medicine 02/05/22 Errol Underwood MD [address] [place] [address] PCP - PCN-[place] ACO REACH Attributed Provider 07/20/23 01/17/24 documented as of this encounter
--- OUTSIDE RECORDS SUMMARY | 2024-07-17 09:43 | XMS_ITS | Encounter Summary ---
Author Organization [facility] Address [address] [place] [address] Care Team Providers Care Oracle Bpm Consultant Name Role Phone Errol Underwood MD Primary Care Provider [phone] Source Comments Please be aware that You and/or your organization are solely responsible for the use, security, privacy, and any decisions made with any information you receive from [employer] Reason for Visit * Reason Onset Date Comments Med Refill 06/24/2023 Alprazolam Encounter Details Date Type Department Care Team (Late st Contact Info) Description 06/24/2023 Refill [facility] Well 65+ at [place] [address] [place] [address] Errol Underwood MD [address] [place] [address] Anxiety Social History Tobacco Use [...] often do you attend chur ch or sikh services? Never 03/06/2023 Do you belong to any clubs o r organizations such as adventism groups, unions, fraternal or athletic groups, or [...] Recorded Patient Health Questionnaire-2 Score 0 03/06/2023 [facility] of Occupat ional Health - Occupational [...] rent on time? 2 03/06/2023 [facility] Places Lived Last Flowsheet Value Most Recent Result Not on file 03/06/2023 In the last 12 months, was t here a time when you did not have a steady place to sleep or slept in a residential (including now)? 2 03/06/2023 Sex and Gender Information Value Date Recorded Sex Assigned at Not on file Gender Identity Not on file Sexual Orientation Not on file documented as of this encounter Miscellaneous Notes * Telephone Encounter - Elaine Dotson LPN - 06/24/2023 12:41 PM EST Shawn 3004 Alprazolam 0.5 mg documented in this encounter Plan of Treatment Upcoming Encounters Date Type Department Care Team (Late st Contact Info) Description 09/06/2024 11:00 AM EST Office Visit [facility] Well 65+ at [place] [address] [place] [address] Errol Underwood MD [address] [place] [address] 03/16/2025 11:15 AM EDT Office Visit [facility] at [place] [address] [place] [id number] Samuel Winslow MD [address] [place] [address] documented as of this encounter Visit Diagnoses Diagnosis Anxiety Anxiety state, unspecified documented in this encounter Additional Health Concerns Assessment Noted Time A fall risk assessment has been complete d for the patient 03/06/2023 8:14 AM EDT documented as of this encounter Care Teams Oracle Bpm Consultant Relationship Specialty Start Date End Date Errol Underwood MD PCP - General Family Medicine 02/05/22 documented as of this encounter
--- OUTSIDE RECORDS SUMMARY | 2024-07-17 09:43 | XMS_ITS | Encounter Summary ---
Author Organization [facility] Address [address] [place] [address] Care Team Providers Care Lead Teller Name Role Phone Errol Underwood MD Primary Care Provider [phone] Source Comments Please be aware that You and/or your organization are solely responsible for the use, security, privacy, and any decisions made with any information you receive from [employer] Encounter Details Date Type Department Care Team (Latest Contact Info) Description 03/06/2023 Travel Social History Tobacco Use Types Packs/Day [...] any clubs o r organizations such as samaritan groups, unions, fraternal or athletic groups, or [...] Recorded Patient Health Questionnaire-2 Score 0 03/06/2023 [facility] of Occupat ional Health - Occupational Stress [...] rent on time? 2 03/06/2023 [facility] [place] [facility] Places Lived Last Flowsheet Value Most Recent Result Not on file 03/06/2023 In the last 12 months, was t here a time when you did not have a steady place to sleep or slept in a correction (including now)? 2 03/06/2023 Sex and Gender Information Value Date Recorded Sex Assigned at Not on file Gender Identity Not on file Sexual Orientation Not on file documented as of this encounter Plan of Treatment Upcoming Encounters Date Type Department Care Team (Late st Contact Info) Description 09/06/2024 11:00 AM EST Office Visit [facility] Well 65+ at [place] [address] [place] [address] Errol Underwood MD [address] [place] [address] 03/16/2025 11:15 AM EDT Office Visit [facility] at [place] [address] [place] [address] Samuel Winslow MD [address] [place] [address] documented as of this encounter Visit Diagnoses Not on filedocumented in this encounter Additional Health Concerns Assessment Noted Time A fall risk assessment has been complete d for the patient 03/06/2023 8:14 AM EDT documented as of this encounter Care Teams Lead Teller Relationship Specialty Start Date End Date Errol Underwood MD PCP - General Family Medicine 02/05/22 documented as of this encounter
--- OUTSIDE RECORDS SUMMARY | 2024-07-17 09:44 | XMS_ITS | Encounter Summary ---
Author Organization [facility] Address [address] [place] [address] Care Team Providers Care Supervisor Research Kennel Name Role Phone Errol Underwood MD Primary Care Provider [phone] Source Comments Please be aware that You and/or your organization are solely responsible for the use, security, privacy, and any decisions made with any information you receive from [employer] Reason for Referral * Imaging (Routine) - Closed Specialty Diagnoses / Procedures Referred By Ryley pantoja Referred To Contact Diagnoses Encounter for screening mammogram for malignant neoplasm of breast Procedures BI Mammogram Screening Bilateral Errlo Underwood MD [address] [place] [address] Referral ID Status Reason Start Date Expiration Date Visits Re quested Visits Authorized [id number] Closed 03/06/2023 03/05/2024 1 1 Reason for Visit * Reason Comments Medicare Annual Wellness Visit Subsequen t Annual Encounter Details Date Type Department Care Team (Late st Contact Info) Description 03/06/2023 8:30 AM EDT Office Visit [facility] Well 65+ at [place] [address] [place] [address] Errol Underwood MD [address] [place] [address] Medicare annual wellness visit, subsequent (Primary Dx); Mixed hyperlipidemia; Hypertension, essential; History of atrial fibrillation; History of malignant neoplasm of endometrium; Gastroesophageal reflux disease without esophagitis; Osteopenia after menopause; Urge incontinence of urine; Encounter for screening mammogram for malignant neoplasm of breast; BMI 32.0-32.9,adult; Anxiety; Sea sickness, sequela Social History Tobacco Use Types Packs/Day Years [...] How often do you attend [facility] or church services? Never 03/06/2023 Do you belong to any clubs o r organizations such as mandaeism groups, unions, fraternal or athletic groups, or [...] you are drinking? Patient does not drink 3 Q3: How often do you have si x or more drinks on one occasion? Never 03/06/2023 Overall Financial Resource Strain (CARDIA) Answe r Date Recorded How hard is it for you to pa y for the very basics like food, housing, medical care, and heating? Not hard at all 03/06/2023 PHQ-2 Answer Date Recorded Patient Health Questionnaire-2 Score 0 03/06/2023 [facility] - Occupational [...] place to sleep or slept in a retirement (including now)? 2 03/06/2023 Sex and Gender Information Value Date Recorded Sex Assigned at Not on file Gender Identity Not on file Sexual Orientation Not on file documented as of this encounter Last Filed Vital Signs Vital Sign Reading Time Taken Comments Blood Pressure 128/70 03/06/2023 8:19 AM EDT Pulse 63 03/06/2023 8:19 AM EDT Temperature 36.9 ??C (98.4 ??F) 03/06/2023 8:19 AM ED T Respiratory Rate 18 03/06/2023 8:19 AM EDT Oxygen Saturation 100% 03/06/2023 8:19 AM EDT Inhaled Oxygen Concentration - - Weight 87.6 kg (193 lb 1.6 oz) 03/06/2023 8:19 A M EDT Height 165.1 cm (5' 5 ) 03/06/2023 8:19 AM EDT Body Mass Index 32.13 03/06/2023 8:19 AM EDT documented in this encounter Progress Notes * Errol Underwood MD - 03/06/2023 8:30 AM EDT Patient is here for Medicare Annual Wellness Visit. The following was reviewed and updated: Medication list, family, social, surgical, past medical history, immunizations and patient's care team (PCP and Specialists). Medicare Health Risk Assessment: How would you rate your overall health? good Pain Score: 0 - No pain Pain Assessment: SCREENING: Date of last colon cancer screenin08/08/21 REPEAT 1 YEAR she is going to set that up Type: Colonoscopy Do you have a family history of colon cancer? no IMMUNIZATIONS: Have you had a pneumonia vaccine? yes Have you had a shingles vaccine? no Have you had a flu shot in the most recent flu vaccine? yes Have you had a Covid-19 vaccine? no Immunization History Administered Date(s) Administered ??? Influenza, High Dose Seasonal, Preservative Free 05/12/2018 ??? Influenza, High-dose, Quadrivalent 07/30/2021 ??? Influenza, Unspecified 05/18/2019 ??? Influenza, injectable, quadrivalent 05/20/2019 ??? Influenza, injectable, quadrivalent, preservative free 04/28/2020 ??? Influenza, seasonal, injectable 06/08/2015, 06/09/2016 ??? Influenza, trivalent, adjuvanted 05/18/2019 ??? Pneumococcal Conjugate PCV 13 06/29/2018 ??? Pneumococcal Polysaccharide PPV23 07/25/2019 Date of last Mammogram (Women age 50-74 every 2 years): 07/07/22 Was it normal? yes Do you have a family history of breast cancer? no Date of last Dexa Scan (Women >65 yr old every 2 years): 10/08/22 ADVANCE DIRECTIVES Do you have an advance directive, living will, power of mergers and acquisitions attorney, or health care document that contains your wish for end of life care? yes Would you like additional information on advance directives? no SMOKING ASSESSMENT Tobacco Use: Low Risk (03/06/2023) Patient History ??? Smoking Tobacco Use: Never ??? Smokeless Tobacco Use: Never ??? Passive Exposure: Not on file If you are a current smoker or have smoked in the past, have you had a lung cancer screening CT scan? no (age 55-80, 30 pack years, current smoker or quit in last 15 years) VISION AND HEARING IMPAIRMENT Hearing Screening - Comments:: good Vision Screening - Comments:: December 17 cataract surgery right eye Any recent vision changes? yes Any recent hearing changes? no HOSPITALIZATIONS In the previous 12 months, have you stayed overnight as a patient in the hospital? no If yes, about how many times? not applicable In the previous month, have you gone to an Urgent Care or Emergency Room? no COGNITIVE ASSESSMENT Do you have any trouble understanding instructions? no Have you had any problems with your long-term memory? (for example, where were you born?) no Have you had any problems with your short-term memory? (for example, what did you have for dinner last night?) no DIET AND EXERCISE Are you physically active? (for example, walking, group classes, stationary bike) Physical Activity: Sufficiently Active (03/06/2023) Physical Activity ??? Physical Activity - Days Per Week Most Recent Result: 3 days ??? Physical Activity - Minutes Per Session Most Recent Result: 60 min How is your diet? Working on improving diet Below is the patient's most recent value for Albumin, ALT, AST, BUN, Calcium, Chloride, Cholesterol, CO2, Creatinine, GFR, Glucose, HDL, Hematocrit, Hemoglobin, Hemoglobin A1C, LDL, Magnesium, Phosphorus, Platelets, Potassium, PSA, Sodium, Triglycerides, and WBC. Lab Results Component Value Date ALBUMIN 3.80 02/07/2023 ALT 02/07/2023 AST 19 02/07/2023 BUN 10.0 02/07/2023 CALCIUM 9.0 02/07/2023 CL 103 02/07/2023 CHOLTOT 125.00 02/07/2023 CO2 25.0 02/07/2023 CREATININE 0.78 02/07/2023 EGFR 81.3 02/07/2023 GLUCOSE 86 02/07/2023 HDLCHOL 46.00 (L) 02/07/2023 HCT 42.8 02/07/2023 HGB 13.4 02/07/2023 LDL 68 08/13/2022 PLT 168 02/07/2023 K 4.2 02/07/2023 NA 138 02/07/2023 TRIG 79 02/07/2023 WBC 5.93 02/07/2023 Note: for a comprehensive list of the patient's lab results, access the Results Review activity. Body mass index is 32.13 kg/m??. 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 yes Do you have safe ely and stairs in your home? yes Do you have adequate lighting in your home? yes Are your appliances in working order? yes Do you have working smoke and CO detectors in your home? yes Do you have safety devices in your bathroom such as hand bars? yes Do you wear your seat belt while in vehicles? yes FALL RISK One or more falls in the last year: No How many times: No Value exists for the MASKING MACHINE FEEDER: [facility]#[id number] STEADI Score: 2 Depression Screening Performed Patient Health Questionnaire-2 Score: 0 - Up to 15 minutes: PHQ-2/PHQ-9 reviewed. These results were discussed with the patient and the appropriate plan was developed as needed. Screening for Alcohol Abuse Performed Alcohol Use: Not At Risk (03/06/2023) AUDIT-C ??? Frequency of Alcohol Consumption: Never ??? Average Number of Drinks: Patient does not drink ??? Frequency of Binge Drinking: Never - Up [...] appropriate health maintenance discussed. Patient verbalized understanding -discussed urinary incontinence Subjective Patient ID: Claudia Desai is a 72 y.o. female. Chief Complaint Patient presents with ??? Medicare Annual Wellness Visit Subsequent Annual Annual exam Went over labs in detail Going on a couple cruises up coming. Lost her 95 yo father with a CVA recently. Has been eating poorly and gained some weight. Doing to have follow up colonoscopy in Jul, going to get this scheduled in the future. Working withDr. Au. Cataract surgery went well and not having any problems. The following portions of the chart were reviewed this encounter and updated as appropriate: Review of Systems Objective Physical Exam Vitals reviewed. Constitutional: Appearance: Normal appearance. She is obese. HENT: Head: Normocephalic and atraumatic. Nose: Nose normal. Mouth/Throat: Mouth: Mucous membranes are moist. Eyes: General: Lids are normal. No scleral icterus. Conjunctiva/sclera: Conjunctivae normal. Pupils: Pupils are equal, round, and reactive to light. Comments: Bilateral cataract Neck: Thyroid: No thyromegaly. Vascular: No JVD. [...] Assessment/Plan 1. Medicare annual wellness visit, subsequent 72-year-old female presents today for annual exam, she is due for follow-up colonoscopy and is going to get that scheduled with Colorectal surgery. Bone density was done just a few months ago, mammogram will be due in June. Recommend flu shot in the fall, discussed other immunizations which shehas declined COVID vaccines but otherwise is considering. Counseled on healthy diet, the need to lose some weight and get back to some regular exercise. Has struggled with that a bit since the passing of her father recently. 2. Mixed hyperlipidemia Well controlled on current medication, LDL is at goal under 70, low HDL and we discussed increasingher activity/exercise. - CBC; Future - Comprehensive Metabolic Panel (CMP); Future - Lipid Panel; Future - CBC - Comprehensive Metabolic Panel (CMP) - Lipid Panel 3. Hypertension, essential Well controlled on current medication, 128/70 today continue to follow blood pressures at home no change 4. History of atrial fibrillation Resolved, aspirin alone for anticoagulation, follows with Cardiology. 5. 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 Gastroesophageal reflux disease without esophagitis Stable with PPI, understands risks and benefits 7. Osteopenia after menopause Seen on recent bone density, calcium vitamin-D and weight-bearing exercise 8. 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 Encounter for screening mammogram for malignant neoplasm of breast Due in June order given today - BI Mammogram Screening Bilateral; Future - BI Mammogram Screening Bilateral 10. BMI 32.0-32.9,adult Some weight gain recently, has been off her diet plan since the passing of her father, states she is trying to do better on her calorie intake and will follow 11. Anxiety P.r.n. use of alprazolam, last prescription was approximately 6 months ago, understands risks and benefits using only sparingly. - ALPRAZolam (Xanax) 0.5 MG tablet; Take 1 tablet (0.5 mg total) by mouth at night if needed for anxiety. Dispense: 30 tablet; Refill: 1 12. Sea sickness, sequela Has an upcoming cruise, scopolamine patch to have on hand and a refill for further use later this year - scopolamine (Transderm-Scop) 1 MG/3DAYS patch 72 hour; Place 1 patch (1 mg total) on the skin every 3rd (third) day. Dispense: 4 patch; Refill: 1 documented in this encounter Miscellaneous Notes * Result Encounter Note - Errol Underwood MD - 03/06/2023 8:30 AM EDT Normal mammogram, repeat mammogram in 1 year documented in this encounter Plan of Treatment Upcoming Encounters Date Type Department Care Team (Late st Contact Info) Description 09/06/2024 11:00 AM EST Office Visit [facility] Well 65+ at [place] [address] [place] [address] Errol Underwood MD [address] [place] [address] 03/16/2025 11:15 AM EDT Office Visit [facility] at [place] [address] [place] [address] Samuel Winslow MD [address] [place] [address] documented as of this encounter Procedures Procedure Name Priority Date/Time Associated Diagnosis Comments BI MAMMOGRAM SCREENING BILATERAL Routine 10/26/2023 12:00 AM EDT Encounter for screening mammogram for malignant neoplasm of breast CBC WITHOUT DIFFERENTIAL Routine 08/24/2023 8:35 AM EST Mixed hyperlipidemia LIPID PANEL Routine 08/24/2023 8:35 AM EST Mixed hyperlipidemia COMPREHENSIVE METABOLIC PANEL Routine 08/24/2023 8:35 AM EST Mixed hyperlipidemia documented in this encounter Results * BI Mammogram Screening Bilateral (10/26/2023 12:00 AM EDT) Anatomical Region Laterality Modality Breast Bilateral Mammography Errol Underwood MD IMG BI PROCEDURES * (ABNORMAL) Lipid Panel (08/24/2023 8:35 AM EST) Cholesterol, Total 137 <200 mg/dL [facility] HDL Cholesterol 48(L) > OR = 50 mg/dL [facility] Triglycerides 120 <150 mg/dL [facility] LDL Cholesterol 68 mg/dL (calc) [facility] Comment: Reference range: <100 Desirable range <100 mg/dL for primary prevention; ?? <70 mg/dL for patients with CHD or diabetic patients with > or = 2 CHD risk factors. LDL-C is now calculated using the Stuart-Junaid calculation, which is a validated novel method providing better accuracy than the Friedewald equation in the estimation of LDL-C. Stuart SS et al. KIMBERLEY. 2013;310(19): 7770-7088 (http://education.[employer]/faq/VAO489) Chol/HDL Ratio 2.9 <5.0 (calc) [facility] Non-HDL Cholesterol 89 <130 mg/dL (calc) [facility] Comment: For patients with diabetes plus 1 major ASCVD risk factor, treating to a non-HDL-C goal of <100 mg/dL (LDL-C of <70 mg/dL) is considered a therapeutic option. Blood Venous blood specimen / Unknown 08/24/2023 8:35 AM EST 08/24/2023 8:35 AM EST Errol Underwood MD LAB BLOOD ORDERABLE S [facility] [address] [place] [address] * Comprehensive Metabolic Panel (CMP) (08/24/2023 8:35 AM EST) Glucose 98 65 - 99 mg/dL [facility] Comment: ? Fasting reference interval BUN 12 7 - 25 mg/dL [facility] Creatinine 0.69 0.60 - 1.00 mg/dL [facility] eGFR 92 > OR = 60 mL/min/1. 73m2 [facility] BUN/Creatinine Ratio SEE NOTE: (calc) [facility] Comment: ?? Not Reported: BUN and Creatinine are within ?? reference range. ? Sodium 139 135 - 146 mmol/L [facility] Potassium 4.4 3.5 - 5.3 mmol/L [facility] Chloride 103 98 - 110 mmol/L [facility] Carbon Dioxide 31 20 - 32 mmol/L [facility] Calcium 9.2 8.6 - 10.4 mg/dL [facility] Protein, Total 6.6 6.1 - 8.1 g/dL [facility] Albumin 3.9 3.6 - 5.1 g/dL [facility] Globulin 2.7 1.9 - 3.7 g/dL (calc) [facility] A/G Ratio 1.4 1.0 - 2.5 (calc) [facility] Bilirubin, Total 0.8 0.2 - 1.2 mg/dL [facility] Alkaline Phosphatase 86 37 - 153 U/L [facility] AST 15 10 - 35 U/L [facility] ALT 12 6 - 29 U/L [facility] Blood Venous blood specimen / Unknown 08/24/2023 8:35 AM EST 08/24/2023 8:35 AM EST Errol Underwood MD LAB BLOOD ORDERABLE [facility] [address] [place] [address] * CBC (08/24/2023 8:35 AM EST) White Blood Cell Count 7.1 3.8 - 10.8 Thousand/u L [facility] Red Blood Cells 4.64 3.80 - 5.10 Million/uL [facility] Hemoglobin 13.4 11.7 - 15.5 g/dL [facility] Hematocrit 41.8 35.0 - 45.0 % [facility] MCV 90.1 80.0 - 100.0 fL [facility] MCH 28.9 27.0 - 33.0 pg [facility] MCHC 32.1 32.0 - 36.0 g/dL [facility] RDW 13.2 11.0 - 15.0 % [facility] Platelet Count 264 140 - 400 Thousand/u L [facility] MPV 10.3 7.5 - 12.5 fL [facility] Blood Venous blood specimen / Unknown 08/24/2023 8:35 AM EST 08/24/2023 8:35 AM EST Errol Underwood MD LAB BLOOD ORDERABLE S [facility] [address] [place] [address] documented in this encounter Visit Diagnoses Diagnosis Medicare annual wellness visit, subsequent- Primary Mixed hyperlipidemia Hypertension, essential Unspecified essential hypertension History of atrial fibrillation Personal history of other diseases of circulatory system History of malignant neoplasm of endometrium Personal history of malignant neoplasm of other parts of uterus Gastroesophageal reflux disease without esophagitis Esophageal reflux Osteopenia after menopause Urge incontinence of urine Urge incontinence Encounter for screening mammogram for malignant neoplasm of breast BMI 32.0-32.9,adult Anxiety Anxiety state, unspecified Sea sickness, sequela documented in this encounter Additional Health Concerns Assessment Noted Time A fall risk assessment has been complete d for the patient 03/06/2023 8:14 AM EDT documented as of this encounter Care Teams Supervisor Research Kennel Relationship Specialty Start Date End Date Errol Underwood MD PCP - General Family Medicine 02/05/22 documented as of this encounter
--- OUTSIDE RECORDS SUMMARY | 2024-07-17 09:44 | XMS_ITS | Encounter Summary ---
Author Organization [facility] Address [address] [place] [address] Care Team Providers Care Motor Operator Name Role Phone Errol Underwood MD Primary Care Provider [phone] Source Comments Please be aware that You and/or your organization are solely responsible for the use, security, privacy, and any decisions made with any information you receive from [facility] Reason for Visit * Reason Onset Date Comments Med Refill 12/24/2022 Med refill Encounter Details Date Type Department Care Team (Late st Contact Info) Description 12/24/2022 Refill [facility] Well 65+ at [place] [address] [place] [address] Errol Underwood MD [address] [place] [address] Gastroesophageal reflux disease with esophagitis, unspecified whether hemorrhage (Primary Dx) Social History Tobacco Use Types Packs/Day Years Used Date Smoking Tobacco: Never Smokeless Tobacco: Never Alcohol Use Standard Drinks/Week Comments Yes 0 (1 standard drink = 0.6 oz pur e alcohol) Humiliation, Afraid, Rape, and Kick questionnair e Answer Date Recorded Within the last year, have y ou been afraid of your partner or ex-partner? No 08/19/2022 Within the last year, have y ou been humiliated or emotionally abused in other ways by your partner or ex-partner? No Within the last year, have y ou been kicked, hit, slapped, or otherwise physically hurt by your partner or ex-partner? No 08/19/2022 Within the last year, have y ou been raped or forced to have any kind of sexual activity by your partner or ex-partner? No 08/19/2022 Social Connection and Isolat ion Panel [NHANES] Answer Date Recorded In a typical week, how many times do you talk on the phone with family, friends, or neighbors? More than three times a week 08/20/2022 How often do you get togethe r with friends or relatives? More than three times a week 08/20/2022 How often do you attend chur ch or church services? Never 08/20/2022 Do you belong to any clubs o r organizations such as moravian groups, unions, fraternal or athletic groups, or school groups? Yes 08/20/2022 How often do you attend meet ings of the clubs or organizations you belong to? Never 08/20/2022 Are you , , di vorced, , never , or living with a partner? 08/20/2022 AUDIT-C Answer Date Recorded Q1: How often do you have a drink containing alcohol? Never 08/19/2022 Q2: How many drinks containi ng alcohol do you have on a typical day when you are drinking? Patient does not drink Q3: How often do you have si x or more drinks on one occasion? Never 08/19/2022 Overall Financial Resource Strain (CARDIA) Answe r Date Recorded How hard is it for you to pa y for the very basics like food, housing, medical care, and heating? Not hard at all 08/19/2022 PHQ-2 Answer Date Recorded Patient Health Questionnaire-2 Score 0 08/20/2022 Physical Activity Answer Date Recorded On average, how many days pe r week do you engage in moderate to strenuous exercise (like a brisk walk)? 4 days 08/20/2022 On average, how many minutes do you engage in exercise at this level? 60 min 08/20/2022 Food Insecurity Answer Date Recorded Within the past 12 months, y ou worried that your food would run out before you got the money to buy more. 1 08/19/2022 Within the past 12 months, t he food you bought just didn't last and you didn't have money to get more. 1 08/19/2022 Transportation Needs Answer Date Record ed In the past 12 months, has l ack of transportation kept you from medical appointments or from getting medications? 2 07/22 In the past 12 months, has l ack of transportation kept you from meetings, work, or from getting things needed for daily living? 2 08/19/2022 Housing Stability Answer Date Recorded In the last 12 months, was t here a time when you were not able to pay the mortgage or rent on time? 2 08/19/2022 [facility] Places Lived Last Flowsheet Value Most Recent Result Not on file 08/19/2022 In the last 12 months, was t here a time when you did not have a steady place to sleep or slept in a retirement (including now)? 2 08/19/2022 Sex and Gender Information Value Date Recorded Sex Assigned at Not on file Gender Identity Not on file Sexual Orientation Not on file documented as of this encounter Miscellaneous Notes * Telephone Encounter - Laurie Miles - 12/24/2022 4:55 PM EDT LAST REFILL 11/19/21 Next appointment 02/23/23 * Telephone Encounter - Blake Merrill - 12/24/2022 4:49 PM EDT Medication refill request Medication Name: lansoprazole Medication Dose: 30MG DR Capsule How many days worth remaining? 5 Does the bottle show any remaining refills? no Pharmacy? [id number] - [place], [place] - [address] [facility] [address] Patients spouse reports that [employer] should have sent us a faxed request last week, nothing observed in media. documented in this encounter Plan of Treatment Upcoming Encounters Date Type Department Care Team (Late st Contact Info) Description 09/06/2024 11:00 AM EST Office Visit [facility] Well 65+ at [place] [address] [place] [address] Errol Underwood MD [address] [place], [place] [id number] 03/16/2025 11:15 AM EDT Office Visit [facility] at [place] [address] [place] [address] Samuel Winslow MD [address] [place] [address] documented as of this encounter Visit Diagnoses Diagnosis Gastroesophageal reflux disease with esophagitis, unspecified whether hemorrhage- Primary documented in this encounter Additional Health Concerns Assessment Noted Time A fall risk assessment has been complete d for the patient 08/20/2022 9:51 AM EST documented as of this encounter Care Teams Motor Operator Relationship Specialty Start Date End Date Errol Underwood MD PCP - General Family Medicine 02/05/22 documented as of this encounter
--- OUTSIDE RECORDS SUMMARY | 2024-07-17 09:45 | XMS_ITS | Encounter Summary ---
Author Organization [facility] Address [address] [place] [address] Care Team Providers Care Plastic Parts Designer Name Role Phone Errol Underwood MD Unavailable [phone] Source Comments Please be aware that You and/or your organization are solely responsible for the use, security, privacy, and any decisions made with any information you receive from [employer] Encounter Details Date Type Department Care Team (Late Contact Info) Description 12/10/2021 Telephone [facility] Well 65+ at [address] [place] [address] Errol Underwood MD [address] [place] [address] Social History Tobacco Use Types Packs/Day Years Used Date Smoking Tobacco: Never Assessed Sex and Gender Information Value Date Recorded Sex Assigned at Not on file Gender Identity Not on file Sexual Orientation Not on file documented as of this encounter Miscellaneous Notes * Telephone Encounter - Bella Garcia - 12/10/2021 2:33 PM EDT Rescheduled appointment from 01/[address] yasemin ward be in the office that day. documented in this encounter Plan of Treatment Upcoming Encounters Date Type Department Care Team (Late st Contact Info) Description 09/06/2024 11:00 AM EST Office Visit [facility] Well 65+ at [place] [address] [place] [address] Errol Underwood MD [address] [place] [address] 03/16/2025 11:15 AM EDT Office Visit [facility] Urology at [place] [address] [place] [address] Samuel Winslow MD [address] [place], [place] [id number] documented as of this encounter Visit Diagnoses Not on filedocumented in this encounter Care Teams Plastic Parts Designer Relationship Specialty Start Date End Date Errol Underwood MD [address] [place] [address] PCP - [facility] REACH Attributed Provider 10/18/21 07/19/22 documented as of this encounter
--- OUTSIDE RECORDS SUMMARY | 2024-07-17 09:45 | XMS_ITS | Encounter Summary ---
[facility] Organization [facility] Address [address] [place] [address] Care Team Providers Care Sort Operations Supervisor Name Role Phone Errol Underwood MD Primary Care Provider [phone] Source Comments Please be aware that You and/or your organization are solely responsible for the use, security, privacy, and any decisions made with any information you receive from [facility] Encounter Details Date Type Department Care Team (Late st Contact Info) Description 08/20/2022 Telephone [facility] Well 65+ at [place] [address] [place] [address] Lora Mendoza LPN Social History [...] often do you attend chur ch or buddhist services? Never 08/20/2022 Do you belong to any clubs o r organizations such as buddhism groups, unions, fraternal or athletic groups, or [...] rent on time? 2 08/19/2022 [facility] Places Lived Last Flowsheet Value Most Recent Result Not on file 08/19/2022 In the last 12 months, was t here a time when you did not have a steady place to sleep or slept in a senior living (including now)? 2 08/19/2022 Sex and Gender Information Value Date Recorded Sex Assigned at Not on file Gender Identity Not on file Sexual Orientation Not on file COVID-19 Exposure Response Date Recorded In the last 10 days, have yo u been in contact with someone who was confirmed or suspected to have Coronavirus/COVID-19? No / Unsure 08/20/2022 9:25 AM EST documented as of this encounter Miscellaneous Notes * Telephone Encounter - Lora Mendoza LPN - 08/20/2022 10:24 AM EST Requested copy of colonoscopy from Dr. Leela Au office to be faxed to Dr. Underwood. documented in this encounter Plan of Treatment Upcoming Encounters Date Type Department Care Team (Late st Contact Info) Description 09/06/2024 11:00 AM EST Office Visit [facility] Well 65+ at [place] [address] [place] [address] Errol Underwood MD [address] [place] [address] 03/16/2025 11:15 AM EDT Office Visit [facility] Urology at [place] [address] [place] [address] Samuel Winslow MD [address] [place] [address] documented as of this encounter Visit Diagnoses Not on filedocumented in this encounter Additional Health Concerns Assessment Noted Time A fall risk assessment has been complete d for the patient 08/20/2022 9:51 AM EST documented as of this encounter Care Teams Sort Operations Supervisor Relationship Specialty Start Date End Date Errol Underwood MD PCP - General Family Medicine 02/05/22 documented as of this encounter
--- OUTSIDE RECORDS SUMMARY | 2024-07-17 09:45 | XMS_ITS | Encounter Summary ---
Author Organization [facility] Address [address] [place] [address] Care Team Providers Care Professor Of Theology Name Role Phone Unavailable Primary Care Provider Unavailabl e Source Comments Please be aware that You and/or your organization are solely responsible for the use, security, privacy, and any decisions made with any information you receive from [employer] Encounter Details Date Type Department Care Team (Late Contact Info) Description 09/01/2018 [facility] Encounter EST Converstion Department [address] [place] [address] ProviderKimani MD [address] [place], [place] [address] Social History Tobacco Use Types Packs/Day Years Used Date Smoking Tobacco: Never Assessed Sex and Gender Information Value Date Recorded Sex Assigned at Not on file Gender Identity Not on file Sexual Orientation Not on file documented as of this encounter Plan of Treatment Upcoming Encounters Date Type Department Care Team ([facility] Contact Info) Description 09/06/2024 11:00 AM EST Office Visit [facility] Well 65+ at [place] [address] [place] [address] Errol Underwood MD [address] [facility] [place], [place] [id number] 03/16/2025 11:15 AM EDT Office Visit [facility] Urology at [place] [address] [place] [address] Samuel Winslow MD [address] [place] [address] [address] [place] [address] documented as of this encounter Procedures Procedure Name Priority Date/Time Associated Diagnosis Comments THINPREP PAP Routine 09/01/2018 1:19 PM EST documented in this encounter Results * Thinprep PAP (09/01/2018 1:19 PM EST) Clinical Information: [facility] Comment:Postmenopausal bleed ing LMP None given [employer] Prev PAP 20,817 [employer] PREV. BX None given [employer] Source None given [employer] Statement of Adequacy [facility] Comment: Satisfactory for evaluation. Endocervical/transformation zone component present. General Categorization [facility] Comment:Other; see interpret ation/result Interpretation [facility] Comment: Negative for intraepithelial lesion. Endometrial Cells identified in a woman specified as post-menopausal. Comment [facility] Comment: Tip of collection device in vial The clinical significance of endometrial cells should be interpreted in the context of menstrual history and reproductive status. If out of phase of cycle or after menopause, this finding may be associated with normal functioning endometrium, benign endometrium with stromal breakdown, hormonal alterations and, less commonly, endometrial neoplasia. ??Clinical correlation is suggested. Idea Man: LINDY VALLECILLO [place] Comment: MASSIMO CHOI (ASCP) CT screening location: [place] [address] Pathologist [facility] Comment: MAGDA DOMÍNGUEZ M.D., ? BOARD CERTIFIED IN ANATOMIC AND CLINICAL PATHOLOGY, CYTOPATHOLOGY (ELECTRONIC SIGNATURE) Comment [facility] Comment: EXPLANATORY NOTE: The Pap is a screening test for cervical cancer. It is not a diagnostic test and is subject to false negative and false positive results. It is most reliable when a satisfactory sample, regularly obtained, is submitted with relevant clinical findings and history, and when the Pap result is evaluated along with historic and current clinical information. NO COLLECTION DATE RECEIVED. WE HAVE USED THE DATE THE SPECIMEN WAS RECEIVED BY THIS LABORATORY THE COLLECTION DATE. IF THIS IS INCORRECT, PLEASE CONTACT CLIENT SERVICES. PHONE NUMBER: [phone] 09/01/2018 1:19 PM EST 08/28/2018 2:34 AM EST Historical Provider LAB BLOOD ORDERAB LES Performing Organization Address City/State/[facility] Co de Phone Number [facility] documented in this encounter Visit Diagnoses Not on filedocumented in this encounter
--- OUTSIDE RECORDS SUMMARY | 2024-07-17 09:45 | XMS_ITS | Encounter Summary ---
Author Organization [facility] Address [address] [place] [address] Care Team Providers Care Fitness Center Attendant Name Role Phone Unavailable Primary Care Provider Unavailabl e Source Comments Please be aware that You and/or your organization are solely responsible for the use, security, privacy, and any decisions made with any information you receive from [employer] Encounter Details Date Type Department Care Team (Late Contact Info) Description 11/25/2018 [facility] Encounter EST Converstion Department [address] [place] [address] ProviderKimani MD [address] [place], [place] [address] Social History Tobacco Use Types Packs/Day Years [...] Description 09/06/2024 11:00 AM EST Office Visit [facility] Well 65+ at [place] [address] [place] [address] Errol Underwood MD [address] [facility] [place], [place] [id number] 03/16/2025 11:15 AM EDT Office Visit [facility] Urology at [place] [address] [place] [address] Samuel Winslow MD [address] [place] [address] [address] [place] [address] documented as of this encounter Procedures Procedure Name Priority Date/Time Associated Diagnosis Comments TISSUE, SPECIMEN A (NO) Routine 11/25/2018 10:32 AM EDT TISSUE PATHOLOGY Routine 11/25/2018 10:3 2 AM EDT documented in this encounter Results * TISSUE, SPECIMEN A (11/25/2018 10:32 AM EDT) A Specimen Source [facility] Comment:ENDOMETRIUM A Gross Description [facility] Comment: Received in formalin labeled with the patient name and endometrium are galeas-brown mucoid and hemorrhagic materials measuring 2.5 x 1.3 x 0.4 cm in aggregate. Filtered and entirely submitted in multiple pieces in two cassette(s). ??Gross exam(s) performed at: [facility] ??[address] [facility] [id number] ??Picture Booker: ANANTH BOND MD,PHD Diagnosis [facility] Comment: - ENDOMETRIAL ADENOCARCINOMA, ENDOMETRIOID TYPE, FIGO GRADE 1 OF 3. ?? 11/25/2018 10:3 2 AM EDT 11/26/2018 11:38 PM EDT Historical Provider LAB CYTOLOGY [place] Performing Organization Address City/State/[facility] Co de Phone Number [facility] * TISSUE PATHOLOGY (11/25/2018 10:32 AM EDT) Clinical Information: [facility] Comment:Postmenopausal bleed ing Pathologist [facility] Comment: PHAM RILEY M.D., BOARD CERTIFIED IN ANATOMIC AND CLINICAL PATHOLOGY, CYTOPATHOLOGY (ELECTRONIC SIGNATURE) For questions contact Anatomic Pathology Client Services at [phone] Report Notes [facility] Comment: Lazaro portions of this case have been reviewed by one or more pathologists. 11/25/2018 10:3 2 AM EDT 11/26/2018 11:38 PM EDT Historical Provider LAB PATHOLOGY ORD ERABLES [facility] documented in this encounter Visit Diagnoses Not on filedocumented in this encounter
--- OUTSIDE RECORDS SUMMARY | 2024-07-17 09:45 | XMS_ITS | Encounter Summary ---
Author Organization [facility] Address [address] [place] [address] Care Team Providers Care Director Business Name Role Phone Errol Underwood MD Unavailable [phone] Errol Underwood MD Primary Care Provider Source Comments Please be aware that You and/or your organization are solely responsible for the use, security, privacy, and any decisions made with any information you receive from [employer] Encounter Details Date Type Department Care Team (Latest Contact Info) Description 02/12/2022 Travel Social History Tobacco Use Types Packs/Day Years Used Date Smoking Tobacco: Never Smokeless Tobacco: Never Alcohol Use Standard Drinks/Week Comments Yes 0 (1 standard drink = 0.6 oz pur e alcohol) Sex and Gender Information Value Date Recorded Sex Assigned at Not on file Gender Identity Not on file Sexual Orientation Not on file COVID-19 Exposure Response Date Recorded In the last month, have you been in contact with someone who was confirmed or suspected to have Coronavirus / COVID-19? No / Unsure 02/12/2022 9:38 AM EDT documented as of this encounter Plan of Treatment Upcoming Encounters Date Type Department Care Team (Late st Contact Info) Description 09/06/2024 11:00 AM EST Office Visit [facility] Well 65+ at [place] [address] [place] [address] Errol Underwood MD [address] [place] [address] 03/16/2025 11:15 AM EDT Office Visit [facility] Urology at [place] [address] [place] [address] Samuel Winslow MD [address] [place] [address] documented as of this encounter Visit Diagnoses Not on filedocumented in this encounter Care Teams Director Business Relationship Specialty Start Date End Date Errol Underwood MD [address] [facility] [place] [address] PCP - [facility]CO REACH Attributed Provider 10/18/21 07/19/22 Errol Underwood MD [address] [place], [place] [id number] PCP - General Family Medicine 02/05/22 documented as of this encounter
--- OUTSIDE RECORDS SUMMARY | 2024-07-17 09:45 | XMS_ITS | Encounter Summary ---
Author Organization [facility] Address [address] [place] [address] Care Team Providers Care Monogram Machine Operator Name Role Phone Unavailable Primary Care Provider Unavailabl e Source Comments Please be aware that You and/or your organization are solely responsible for the use, security, privacy, and any decisions made with any information you receive from [employer] Encounter Details Date Type Department Care Team (Late Contact Info) Description 06/27/2019 [facility] Encounter EST Converstion Department [address] [place] [address] ProviderKimani MD [address] [place], [place] [address] Social History Tobacco Use Types Packs/Day Years Used Date Smoking Tobacco: Never Assessed Sex and Gender Information Value Date Recorded Sex Assigned at Not on file Gender Identity Not on file Sexual Orientation Not on file documented as of this encounter Plan of Treatment Upcoming Encounters Date Type Department Care Team ([facility] Contact Info) Description 09/06/2024 11:00 AM EST Office Visit [facility] Well 65+ at [place] [address] [place] [address] Errol Underwood MD [address] [facility] [place], [place] [id number] 03/16/2025 11:15 AM EDT Office Visit [facility] Urology at [place] [address] [place] [address] Samuel Winslow MD [address] [place] [address] [address] [place] [address] documented as of this encounter Procedures Procedure Name Priority Date/Time Associated Diagnosis Comments CBC W/AUTO DIFF, REFLEX MANUAL DIFF IF INDICATED Routine 06/27/2019 8:49 AM EST LIPID PANEL Routine 06/27/2019 8:49 AM EST COMPREHENSIVE METABOLIC PANEL Routine 06/27/2019 8:49 AM EST documented in this encounter Results * CBC Auto Diff, Reflex Manual Diff if Indicated (06/27/2019 8:49 AM EST) White Blood Cell Count 5.6 3.8 - 10.8 Thousand/u L [facility] Red Blood Cells 4.47 3.80 - 5.10 Million/uL [facility] Hemoglobin 13.3 11.7 - 15.5 g/dL [facility] Hematocrit 40.2 35.0 - 45.0 % [facility] MCV 89.9 80.0 - 100.0 fL [facility] MCH 29.8 27.0 - 33.0 pg [facility] MCHC 33.1 32.0 - 36.0 g/dL [facility] RDW 13.1 11.0 - 15.0 % [facility] Platelet Count 171 140 - 400 Thousand/u L [facility] MPV 10.4 7.5 - 12.5 fL [facility] Neutrophils Absolute 3,371 1,500 - 7,800 cells/uL [facility] Lymphocytes Absolute 1,445 850 - 3,900 cells/uL [facility] Monocytes Absolute 571 200 - 950 cells/uL [facility] Eosinophils Absolute 162 15 - 500 cells/uL [facility] Basophil Absolute 50 0 - 200 cells/uL [facility] Neutrophils, % 60.2 % [facility] Lymphocytes Absolute 25.8 % [facility] Monocytes % 10.2 % [facility] Eosinphils % 2.9 % [facility] Basophils 0.9 % [facility] 06/27/2019 8:49 AM EST 06/27/2019 8:50 AM EST Narrative [facility] - 06/27/2019 7:19 PM EST FASTING: Y FASTING:YES Historical Provider LAB BLOOD ORDERAB LES [facility] * (ABNORMAL) Comprehensive Metabolic Panel (CMP) (06/27/2019 8:49 AM EST) [facility] Glucose 101(H) 65 - 99 mg/dL [facility] Comment: ? Fasting reference interval For someone without known diabetes, a glucose value between 100 and 125 mg/dL is consistent with prediabetes and should be confirmed with a follow-up test. BUN 13 7 - 25 mg/dL [facility] Creatinine 0.73 0.50 - 0.99 mg/dL [facility] Comment: For patients >49 years of age, the reference limit for Creatinine is approximately 13% higher for people identified as -Central African. eGFR Non-Afr. Central African 85 > OR = 60 mL/min/1 .73m2 [facility] eGFR 98 > OR = 60 mL/min/1 .73m2 [facility] BUN/Creatinine Ratio NOT APPLICABLE 6 - 22 (calc) [facility] Sodium 139 135 - 146 mmol/L [facility] Potassium 4.6 3.5 - 5.3 mmol/L [facility] Chloride 104 98 - 110 mmol/L [facility] Carbon Dioxide 28 20 - 32 mmol/L [facility] Calcium 9.2 8.6 - 10.4 mg/dL [facility] Protein, Total 6.6 6.1 - 8.1 g/dL [facility] Albumin 3.9 3.6 - 5.1 g/dL [facility] Globulin 2.7 1.9 - 3.7 g/dL (calc) [facility] A/G Ratio 1.4 1.0 - 2.5 (calc) [facility] Bilirubin, Total 0.7 0.2 - 1.2 mg/dL [facility] Alkaline Phosphatase 89 33 - 130 U/L [facility] AST 16 10 - 35 U/L [facility] ALT 13 6 - 29 U/L [facility] 06/27/2019 8:49 AM EST 06/27/2019 8:50 AM EST Narrative [facility] - 06/27/2019 7:19 PM EST FASTING: Y FASTING:YES Historical Provider MD LAB BLOOD ORDERAB LES [facility] * (ABNORMAL) Lipid Panel (06/27/2019 8:49 AM EST) Cholesterol, Total 131 <200 mg/dL [facility] HDL Cholesterol 50(L) >50 mg/dL [facility] Triglycerides 80 <150 mg/dL [facility] LDL Cholesterol 65 mg/dL (calc) [facility] Chol/HDL Ratio 2.6 <5.0 (calc) [facility] Non-HDL Cholesterol 81 <130 mg/dL (calc) [facility] 06/27/2019 8:49 AM EST 06/27/2019 8:50 AM EST Narrative [facility] - 06/27/2019 7:19 PM EST FASTING: Y FASTING:YES Historical Provider LAB BLOOD ORDERAB LES [facility] documented in this encounter Visit Diagnoses Not on filedocumented in this encounter
--- OUTSIDE RECORDS SUMMARY | 2024-07-17 09:45 | XMS_ITS | Encounter Summary ---
Author Organization [facility] Address [address] [place] [address] Care Team Providers Care Mold Making Supervisor Name Role Phone Errol Underwood MD Unavailable [phone] Errol Underwood MD Primary Care Provider Source Comments Please be aware that You and/or your organization are solely responsible for the use, security, privacy, and any decisions made with any information you receive from [facility] Reason for Referral * Imaging (Routine) - Closed Specialty Diagnoses / Procedures Referred By Ryley pantoja Referred To Contact Diagnoses Encounter for screening mammogram for malignant neoplasm of breast Procedures BI Mammogram Screening Bilateral Errol Underwood MD [address] [place] [address] Referral ID Status Reason Start Date Expiration Date Visits Re quested Visits Authorized [id number] Closed 02/12/2022 02/12/2023 1 1 Reason for Visit * Reason Comments Follow-up 6 month follow up wi th labs, no concerns, no refills Encounter Details Date Type Department Care Team (Late Contact Info) Description 02/12/2022 10:00 AM EDT [facility] Visit [facility] 65+ at [address] [address] Errol Underwood MD [address] [place] [address] Mixed hyperlipidemia (Primary Dx); Hypertension, essential; History of malignant neoplasm of endometrium; Solitary pulmonary nodule present on computed tomography of lung; Gastroesophageal reflux disease without esophagitis; Osteopenia after menopause; Encounter for screening mammogram for malignant neoplasm of breast; Hypertension, unspecified type; Anxiety; Seasonal allergic rhinitis, unspecified trigger; BMI 32.0-32.9,adult Social History Tobacco Use Types Packs/Day Years [...] AM EDT documented as of this encounter Last Filed Vital Signs Vital Sign Reading Time Taken Comments Blood Pressure 128/76 02/12/2022 9:44 AM EDT Pulse 75 02/12/2022 9:44 AM EDT Temperature 36.8 ??C (98.2 ??F) 02/12/2022 9:44 AM ED T Respiratory Rate - - Oxygen Saturation 98% 02/12/2022 9:44 AM EDT Inhaled Oxygen Concentration - - Weight 86.4 kg (190 lb 6.4 oz) 02/12/2022 9:44 A M EDT Height 164.1 cm (5' 4.6 ) 02/12/2022 9:44 AM EDT Body Mass Index 32.08 02/12/2022 9:44 AM EDT documented in this encounter Progress Notes * Errol Underwood MD - 02/12/2022 10:00 AM EDT Subjective Patient ID: Clauida Desai is a 71 y.o. female. Chief Complaint Patient presents with ??? Follow-up 6 month follow up with labs, no concerns, no refills Presents today for follow up. Not eating well and has gained about 4 lbs from last visit. Doing some time in the gym in the [employer], doing leg weights and some cardio as well. Doing some swimming as well. Fairly sedentary other than that and discussed. Had a bladder infection a couple weeks ago, did [facility] [place] and got medications. Has some sinus congestion but not using anything for it. Discussed flonase as needed. The following portions of the chart were [...] normal. Assessment/Plan 1. Mixed hyperlipidemia Cholesterol is well controlled on current medication, continue with the atorvastatin. HDL within normal limits and is under 70. 2. Hypertension, essential Well controlled at 128/76 today, using beta-rahul, atenolol for treatment and doing quite well. 3. History of malignant neoplasm of endometrium Had hysterectomy, pushing 2 years ago, no postop complications and has done quite well. No issues with the radiation treatment at this time. 4. Solitary pulmonary nodule present on computed tomography of lung Had a 6 mm lesion in the left lung, did repeat CTs for 3 years with no change and no further follow-up was recommended. 5. Gastroesophageal reflux disease without esophagitis Stable with PPI, understands risks and benefits doing well otherwise. 6. Osteopenia after menopause Bone density due this year, doing weight-bearing exercise, recommend calcium and vitamin-D supplementation. 7. Encounter for screening mammogram for malignant neoplasm of breast Mammogram due this fall an order was given 8. Hypertension, unspecified type See above 9. Anxiety Anxiety medication, alprazolam on an as-needed basis, using only a couple of times a month. 10. Seasonal allergic rhinitis, unspecified trigger Complains of some sinus congestion, recommending qglb-dja-jhdglnp treatment, not using anything currently but has used Flonase in the past. 11. BMI 32.0-32.9,adult Gained 4 lb from last visit, recommending some changes to her diet and calorie intake * Lora Mendoza LPN - 02/12/2022 10:00 AM EDT Patient informed. No further questions. documented in this encounter Miscellaneous Notes * Result Encounter Note - Errol Underwood MD - 02/12/2022 10:00 AM EDT Normal mammogram, repeat in one year documented in this encounter Plan of Treatment Upcoming Encounters Date Type Department Care Team (Late st Contact Info) Description 09/06/2024 11:00 AM EST Office Visit [facility] Well 65+ at [place] [address] [place] [address] Errol Underwood MD [address] [place] [address] 03/16/2025 11:15 AM EDT Office Visit [facility] at [place] [address] [place] [address] Samuel Winslow MD [address] [place] [address] Scheduled Orders Name Type Priority Associated Diagnoses Orde r Schedule BI Mammogram Screening Bilateral Imaging Routine Encounter for screening mammogram for malignant neoplasm of breast Expected: 06/13/2022, Expires: 04/15/2023 DEXA Bone Density Imaging Routine Osteopenia after menopause Expected: 06/12/2022, Expires: 02/12/2023 documented as of this encounter Procedures Procedure Name Priority Date/Time Associated Diagnosis Comments CBC WITHOUT DIFFERENTIAL Routine 08/13/2022 10:29 AM EST Mixed hyperlipidemia LIPID PANEL Routine 08/13/2022 10:29 AM EST Mixed hyperlipidemia COMPREHENSIVE METABOLIC PANEL Routine 08/13/2022 10:29 AM EST Mixed hyperlipidemia HM MAMMOGRAPHY 07/07/2022 6:16 PM EST documented in this encounter Results * Lipid Panel (08/13/2022 10:29 AM EST) Cholesterol, Total 136 <200 mg/dL [facility] HDL Cholesterol 51 > OR = 50 mg/dL [facility] Triglycerides 88 <150 mg/dL [facility] LDL Cholesterol 68 mg/dL (calc) [facility] Comment: Reference range: <100 Desirable range <100 mg/dL for primary prevention; ?? <70 mg/dL for patients with CHD or diabetic patients with > or = 2 CHD risk factors. LDL-C is now calculated using the Kristy calculation, which is a validated novel method providing better accuracy than the Friedewald equation in the estimation of LDL-C. Stuart PARK et al. KIMBERLEY. 2013;310(19): 2331-3270 (http://education.Cybersource.Sonos/faq/TNO979) Chol/HDL Ratio 2.7 <5.0 (calc) [facility] Non-HDL Cholesterol 85 <130 mg/dL (calc) [facility] Comment: For patients with diabetes plus 1 major ASCVD risk factor, treating to a non-HDL-C goal of <100 mg/dL (LDL-C of <70 mg/dL) is considered a therapeutic option. Blood Venous blood specimen / Unknown 08/13/2022 10:29 AM EST 08/13/2022 10:29 AM EST Narrative [facility] - 08/14/2022 11:15 AM EST FASTING:YES FASTING: YES Errol Underwood MD LAB BLOOD ORDERABLE S [facility] [address] [place] [address] * Comprehensive Metabolic Panel (CMP) (08/13/2022 10:29 AM EST) Glucose 97 65 - 99 mg/dL [facility] Comment: ? Fasting reference interval BUN 16 7 - 25 mg/dL [facility] Creatinine 0.70 0.60 - 1.00 mg/dL [facility] [place] eGFR 92 > OR = 60 mL/min/1. 73m2 [facility] Comment: The eGFR is based on the CKD-EPI 2020 equation. To calculate the new eGFR from a previous Creatinine or Cystatin C result, go to https://www.kidney.org/professionals/ kdoqi/gfr%5Fcalculator BUN/Creatinine Ratio NOT APPLICABLE 6 - 22 (calc) [facility] [place] Sodium 139 135 - 146 mmol/L [facility] [place] Potassium 4.6 3.5 - 5.3 mmol/L [facility] [place] Chloride 102 98 - 110 mmol/L [facility] [place] Carbon Dioxide 29 20 - 32 mmol/L [facility] [place] Calcium 9.2 8.6 - 10.4 mg/dL [facility] [place] Protein, Total 6.6 6.1 - 8.1 g/dL [facility] [place] Albumin 3.9 3.6 - 5.1 g/dL [facility] [place] Globulin 2.7 1.9 - 3.7 g/dL (calc) [facility] [place] A/G Ratio 1.4 1.0 - 2.5 (calc) [facility] [place] Bilirubin, Total 0.6 0.2 - 1.2 mg/dL [facility] [place] Alkaline Phosphatase 75 37 - 153 U/L [facility] [place] AST 15 10 - 35 U/L [facility] ALT 12 6 - 29 U/L [facility] Blood Venous blood specimen / Unknown 08/13/2022 10:29 AM EST 08/13/2022 10:29 AM EST Narrative [facility] - 08/14/2022 11:15 AM EST FASTING:YES FASTING: YES Errol Underwood MD LAB BLOOD ORDERABLE S Performing Organization Address City/[facility]/ZIP Co de Phone Number [facility] [address] [place] [address] * CBC (08/13/2022 10:29 AM EST) White Blood Cell Count 6.7 3.8 - 10.8 Thousand/u L [facility] Red Blood Cells 4.37 3.80 - 5.10 Million/uL [facility] Hemoglobin 13.3 11.7 - 15.5 g/dL [facility] Hematocrit 40.7 35.0 - 45.0 % [facility] MCV 93.1 80.0 - 100.0 fL [facility] MCH 30.4 27.0 - 33.0 pg [facility] MCHC 32.7 32.0 - 36.0 g/dL [facility] RDW 13.5 11.0 - 15.0 % [facility] Platelet Count 181 140 - 400 Thousand/u L [facility] MPV 10.7 7.5 - 12.5 fL [facility] Blood Venous blood specimen / Unknown 08/13/2022 10:29 AM EST 08/13/2022 10:29 AM EST Narrative [facility] - 08/14/2022 11:15 AM EST FASTING:YES FASTING: YES Errol Underwood MD LAB BLOOD ORDERABLE S Performing Organization Address City/[facility]/ZIP Co de Phone Number [facility] [address] [place] [address] * HM MAMMOGRAPHY (07/07/2022 6:16 PM EST) Anatomical Region Laterality Modality Other Errol Underwood MD HEALTH MAINTENANCE documented in this encounter Visit Diagnoses Diagnosis Mixed hyperlipidemia- Primary Hypertension, essential Unspecified essential hypertension History of malignant neoplasm of endometrium Personal history of malignant neoplasm of other parts of uterus Solitary pulmonary nodule present on computed tomography of lung Gastroesophageal reflux disease without esophagitis Esophageal reflux Osteopenia after menopause Encounter for screening mammogram for malignant neoplasm of breast Hypertension, unspecified type Anxiety Anxiety state, unspecified Seasonal allergic rhinitis, unspecified trigger BMI 32.0-32.9,adult documented in this encounter Care Teams Mold Making Supervisor Relationship Specialty Start Date End Date Errol Underwood MD [address] [place] [address] PCP - [facility] Attributed Provider 10/18/21 07/19/22 Errol Underwood MD [address] [place] [address] PCP - General Family Medicine 02/05/22 documented as of this encounter
--- OUTSIDE RECORDS SUMMARY | 2024-07-17 09:45 | XMS_ITS | Encounter Summary ---
Author Organization [facility] Address [address] [place] [address] Care Team Providers Care Dry Transfer Worker Name Role Phone Errol Underwood MD Primary Care Provider [phone] Source Comments Please be aware that You and/or your organization are solely responsible for the use, security, privacy, and any decisions made with any information you receive from [employer] Encounter Details Date Type Department Care Team (Latest Contact Info) Description 10/08/2022 12:41 PM EDT - 10/08/2022 11:59 PM EDT Hospital Encounter [facility] [place] [facility] [address] [place] [address] Discharge Disposition: Home or Self Care Social [...] often do you attend chur ch or denominational services? Never 08/20/2022 Do you belong to any clubs o r organizations such as hindu groups, unions, fraternal or athletic groups, or [...] medical appointments or from getting medications? 2 01/3 07/2022 In the past 12 months, has l ack of transportation kept you from meetings, work, or from getting things needed for daily living? 2 08/19/2022 Housing Stability Answer Date Recorded In the last 12 months, was t here a time when you were not able to pay the mortgage or rent on time? 2 08/19/2022 [facility] Places Lived Last Flowsheet Value Most Recent Result Not on file 08/19/2022 In the last 12 months, was t here a time when you did not have a steady place to sleep or slept in a fdc (including now)? 2 08/19/2022 Sex and Gender Information Value Date Recorded Sex Assigned at Not on file Gender Identity Not on file Sexual Orientation Not on file COVID-19 Exposure Response Date Recorded In the last 10 days, have yo u been in contact with someone who was confirmed or suspected to have Coronavirus/COVID-19? No / Unsure 10/08/2022 12:40 PM EDT documented as of this encounter Medications at Time of Discharge Medication Sig Dispensed Refills Start Date End Date aspirin (aspirin) 81 MG EC tablet Patient stated, Yes, its chewable. Calcium Carbonate-Vitamin D 600-200 MG-UNIT capsule Take 1 capsule every day by oral route. ALPRAZolam (Xanax) 0.5 MG tabletIndications:Anxiety Take 1 tablet (0.5 mg total) by mouth at night if needed for anxiety. 30 tablet 1 08/20/2022 03/06/2023 atenolol (Tenormin) 25 MG tabletIndications:Hyperte nsion, unspecified type TAKE 1 TABLET BY MOUTH EVERY DAY 90 tablet 3 02/24/2022 10/17/2022 atorvastatin (Lipitor) 20 MG tabletIndications:Mixed hyperlipidemia Take 1 tablet (20 mg total) by mouth 1 (one) time each day. 90 tablet 3 02/12/2022 10/17/2022 diclofenac (Voltaren) 1 % topical gel APPLY 2 GRAM TO THE AFFECTED AREA(S) BY TOPICAL ROUTE EVERY DAY 03/06/2023 lansoprazole (Prevacid) [address] capsule TAKE 1 CAPSULE BY MOUTH EVERY DAY BEFORE A MEAL 11/19/2021 12/24/2022 documented as of this encounter Plan of Treatment Upcoming Encounters Date Type Department Care Team (Late st Contact Info) Description 09/06/2024 11:00 AM EST Office Visit [facility] Well 65+ at [place] [address] [place] [address] Errol Underwood MD [address] [place] [address] 03/16/2025 11:15 AM EDT Office Visit [facility] at [place] [address] [place] [address] Samuel Winslow MD [address] [place] [address] documented as of this encounter Procedures Procedure Name Priority Date/Time Associated Diagnosis Comments DEXA BONE DENSITY Routine 10/08/2022 12: 53 PM EDT Osteopenia after menopause documented in this encounter Results * DEXA Bone Density Axial Skeleton (10/08/2022 12:53 PM EDT) Anatomical Region Laterality Modality Body N/A Digital Radiogra phy Impressions 10/08/2022 1:22 PM EDT Based on BMD, diagnosis is consistent with osteopenia. Follow up with DEXA and TBS: 1 year. ?? WHO CRITERIA FOR T-SCORES: < or = -2.5 = osteoporosis < -1.0 and -2.5 = osteopenia > or = -1.0 = normal density Created by: Galindo Garcia MD Signed by: Galindo Garcia MD Signed on: 10/08/2022 13:22 EDT Location: [id number] ? Narrative 10/08/2022 1:22 PM EDT ?EXAM: ??DXA AXIAL ?? INDICATION: ??Postmenopausal. Risk factors for osteoporosis include none. COMPARISON: None. ?? FINDINGS: ?? Spine: ??Total BMD of the spine L2-4 is 0.853 g/cm2, with a T-score of -2.1 and a Z-score of 0.2. ?? Left Femoral Neck: BMD is 0.790 g/cm2, with a T-score of -0.5 ??and a Z-score of 1.4. Left Total Hip: BMD is 0.875 g/cm2, with a T-score of -0.5 and a Z-score of 1.0. Right Femoral Neck: BMD is 0.765 g/cm2, with a T-score of -0.8 and a Z-score of 1.1. Right Total Hip: BMD is 0.915 g/cm2, with a T-score of -0.2 and a Z-score of 1.4. FRAX evaluation calculates 10-year probability of fracture: Major Osteoporotic: 8.3%% Hip: 0.8%% Procedure Note Galindo Garcia MD - 10/08/2022 EXAM: DXA AXIAL INDICATION: Postmenopausal. Risk factors for osteoporosis includenone. COMPARISON: None. FINDINGS: Spine: Total BMD of the spine L2-4 is 0.853 g/cm2, with a T-score of-2.1 and a Z-score of 0.2. Left Femoral Neck: BMD is 0.790 g/cm2, with a T-score of -0.5 and aZ-score of 1.4. Left Total Hip: BMD is 0.875 g/cm2, with a T-score of -0.5 and a Z-scoreof 1.0. Right Femoral Neck: BMD is 0.765 g/cm2, with a T-score of -0.8 and aZ-score of 1.1. Right Total Hip: BMD is 0.915 g/cm2, with a T-score of -0.2 and a Z-scoreof 1.4. FRAX evaluation calculates 10-year probability of fracture: Major Osteoporotic: 8.3%% Hip: 0.8%% IMPRESSION: Based on BMD, diagnosis is consistent with osteopenia. Follow up with DEXA and TBS: 1 year. WHO CRITERIA FOR T-SCORES: < or = -2.5 = osteoporosis < -1.0 and -2.5 = osteopenia > or = -1.0 = normal density Created by: Galindo Garcia MD Signed by: Galindo Garcia MD Signed on: 10/08/2022 13:22 EDT Location: [facility] Errol Underwood MD IMG DXA PROCEDURES documented in this encounter Visit Diagnoses Not on filedocumented in this encounter Additional Health Concerns Assessment Noted Time A fall risk assessment has been complete d for the patient 08/20/2022 9:51 AM EST documented as of this encounter Care Teams Dry Transfer Worker Relationship Specialty Start Date End Date Errol Underwood MD PCP - General Family Medicine 02/05/22 documented as of this encounter
--- OUTSIDE RECORDS SUMMARY | 2024-07-17 09:45 | XMS_ITS | Encounter Summary ---
Author Organization [facility] Address [address] [place] [address] Care Team Providers Care E Commerce Architect Name Role Phone Erorl Underwood MD Primary Care Provider [phone] Source Comments Please be aware that You and/or your organization are solely responsible for the use, security, privacy, and any decisions made with any information you receive from [email or web address] Reason for Visit * Reason Comments medical clearance Medical clearance fo r cataract surgery scheduled November 17, 2022. Encounter Details Date Type Department Care Team (Late st Contact Info) Description 10/17/2022 2:00 PM EDT Office Visit [facility] Well 65+ at [place] [address] [place] [address] Errol Underwood MD [address] [place] [address] Age-related nuclear cataract of both eyes (Primary Dx); Preop cardiovascular exam; Mixed hyperlipidemia; Hypertension, essential; History of atrial fibrillation; Sea sickness, sequela Social History Tobacco Use [...] 08/20/2022 How often do you attend chur or episcopalian services? Never 08/20/2022 Do you belong to any clubs o r organizations such as uatsdin groups, unions, fraternal or athletic groups, or [...] rent on time? 2 08/19/[address] [facility] ng Places Lived Last Flowsheet Value Most Recent Result Not on file 08/19/2022 In the last 12 months, was t here a time when you did not have a steady place to sleep or slept in a halfway (including now)? 2 08/19/2022 Sex and Gender Information Value Date Recorded Sex Assigned at Not on file Gender Identity Not on file Sexual Orientation Not on file COVID-19 Exposure Response Date Recorded In the last 10 days, have yo u been in contact with someone who was confirmed or suspected to have Coronavirus/COVID-19? No / Unsure 10/17/2022 1:34 PM EDT documented as of this encounter Last Filed Vital Signs Vital Sign Reading Time Taken Comments Blood Pressure 137/76 10/17/2022 1:43 PM EDT Pulse 76 10/17/2022 1:43 PM EDT Temperature 36.5 ??C (97.7 ??F) 10/17/2022 1:43 PM ED T Respiratory Rate 18 10/17/2022 1:43 PM EDT Oxygen Saturation 97% 10/17/2022 1:43 PM EDT Inhaled Oxygen Concentration - - Weight 86.4 kg (190 lb 8 oz) 10/17/2022 1:43 PM EDT Height 165.1 cm (5' 5 ) 10/17/2022 1:43 PM EDT Body Mass Index 31.7 10/17/2022 1:43 PM EDT documented in this encounter Progress Notes * Errol Underwood MD - 10/17/2022 2:00 PM EDT Subjective Patient ID: Claudia Desai is a 72 y.o. female. Chief Complaint Patient presents with ??? medical clearance Medical clearance for cataract surgery scheduled November 17, 2022. Presents today for pre op surgery for cataract on the right eye. Having some night time driving. No trouble on the left at this time. Discussed medications, states that she had multiple extra is of her blood pressure cholesterol medicine so has not had a refilled in some time. Sending a refill now. Has an upcoming cruise and requests sea sickness patches. The following portions of the chart were [...] Mood and Affect: Mood normal. Assessment/Plan 1. Age-related nuclear cataract of both eyes Bilateral cataracts, according to the eye doctor worse on the right she has been having more significant symptoms with trying to drive at night. Planning for surgery on November 17 as an outpatient at the surgery center. She is low risk for this low risk surgery included proceed 2. Preop cardiovascular exam See above, clear to proceed paperwork filled out today and copy given to the patient and faxed to the ophthalmology office 3. Mixed hyperlipidemia Stable on 20 mg atorvastatin, new prescription sent for 90 day supply - atorvastatin (Lipitor) 20 MG tablet; Take 1 tablet (20 mg total) by mouth 1 (one) time each day.Dispense: 90 tablet; Refill: 3 4. Hypertension, essential Blood pressure well controlled 137/76, she states she has been compliant with her medication but was given extra refills and had more medicine than needed so she has not refilled in some time. Sending a new prescription for the 90 days. - atenolol (Tenormin) 25 MG tablet; Take 1 tablet (25 mg total) by mouth 1 (one) time each day. Dispense: 90 tablet; Refill: 3 5. History of atrial fibrillation Status post ablation, sinus rhythm and 81 mg aspirin alone for anticoagulation 6. Sea sickness, sequela Has an upcoming 9 day cruise, sea sickness as a history, scopolamine patch to the pharmacy which she has tolerated well. - scopolamine (Transderm-Scop) 1 MG/3DAYS patch 72 hour; Place 1 patch (1 mg total) on the skin every 3rd (third) day. Dispense: 4 patch; Refill: 1 documented in this encounter Plan of Treatment Upcoming Encounters Date Type Department Care Team (Late st Contact Info) Description 09/06/2024 11:00 AM EST Office Visit [facility] Well 65+ at [place] [address] [place] [address] Errol Underwood MD [address] [place] [address] 03/16/2025 11:15 AM EDT Office Visit [facility] at [place] [address] [place] [address] Samuel Winslow MD [address] [facility] [address] [place] [address] documented as of this encounter Visit Diagnoses Diagnosis Age-related nuclear cataract of both eyes- Primary Preop cardiovascular exam Pre-operative cardiovascular examination Mixed hyperlipidemia Hypertension, essential Unspecified essential hypertension History of atrial fibrillation Personal history of other diseases of circulatory system Sea sickness, sequela documented in this encounter Additional Health Concerns Assessment Noted Time A fall risk assessment has been complete d for the patient 08/20/2022 9:51 AM EST documented as of this encounter Care Teams E Commerce Architect Relationship Specialty Start Date End Date Errol Underwood MD PCP - General Family Medicine 02/05/22 documented as of this encounter
--- OUTSIDE RECORDS SUMMARY | 2024-07-17 09:45 | XMS_ITS | Encounter Summary ---
Author Organization [facility] Address [address] [place] [address] Care Team Providers Care Cloth Desizing Range Operator Chief Name Role Phone Unavailable Primary Care Provider Unavailabl e Source Comments Please be aware that You and/or your organization are solely responsible for the use, security, privacy, and any decisions made with any information you receive from [employer] Encounter Details Date Type Department Care Team (Late Contact Info) Description 08/25/2018 [facility] Encounter EST Converstion Department [address] [place] [address] ProviderKimani MD [address] [place], [place] [address] Social History Tobacco Use Types Packs/Day Years Used Date Smoking Tobacco: Never Assessed Sex and Gender Information Value Date Recorded Sex Assigned at Not on file Gender Identity Not on file Sexual Orientation Not on file documented as of this encounter Plan of Treatment Upcoming Encounters Date Type Department Care Team ([facility] Contact Info) Description 09/06/2024 11:00 AM EST Office Visit [facility] Well 65+ at [place] [address] [place] [address] Errol Underwood MD [address] [facility] [place], [place] [id number] 03/16/2025 11:15 AM EDT Office Visit [facility] [place] at [place] [address] [place] [address] Samuel Winslow MD [address] [facility] [address] [place] [address] documented as of this encounter Procedures Procedure Name Priority Date/Time Associated Diagnosis Comments URINALYSIS, COMPLETE W/REFLEX TO CULT COMPREHENSIVE Routine 08/25/2018 10:09 AM EST REFLEXIVE URINE CULTURE Routine 08/25/2018 10:09 AM EST URINE CULTURE Routine 08/25/2018 10:09 AM EST documented in this encounter Results * Urine culture (08/25/2018 10:09 AM EST) AMB - CULTURE, URINE, ROUTINE - DATA CONVERSION [facility] Comment: ??CULTURE, URINE, ROUTINE ?MICRO NUMBER: ?[id number] ??TEST STATUS: ? FINAL ??SPECIMEN SOURCE: ?? URINE ??SPECIMEN QUALITY: ??ADEQUATE ??RESULT: ?Multiple organisms present, each less than 10,000 ? CFU/mL. These organisms, commonly found on ? external and internal genitalia, are considered ? to be colonizers. No further testing performed. 08/25/2018 10:0 9 AM EST 08/25/2018 10:10 AM EST Historical Provider MD HUERTA MICROBIOLOGY - GENERAL ORDERABLES Performing Organization Address City/State/[facility] Co de Phone Number [facility] * REFLEXIVE URINE CULTURE (08/25/2018 10:09 AM EST) Reflexive Urine Culture CULTURE INDICATED - RESULTS TO FOLLOW [facility] 08/25/2018 10:0 9 AM EST 08/25/2018 10:10 AM EST Historical Provider MD [facility] WALDO PEREZ * (ABNORMAL) Urinalysis, Complete w/Reflex to Culture (08/25/2018 10:09 AM EST) Color, Urine YELLOW YELLOW [facility] Appearance, Urine CLEAR CLEAR [facility] Specific [place], Urine 1.011 1.001 - 1.035 [facility] pH, Urine 5.5 5.0 - 8.0 [facility] Glucose NEGATIVE NEGATIVE [facility] Bilirubin, Urine NEGATIVE NEGATIVE [facility] Ketones, Urine NEGATIVE NEGATIVE [facility] Blood, Urine NEGATIVE NEGATIVE [facility] Protein, Qual, Urine NEGATIVE NEGATIVE [facility] Nitrite, Urine NEGATIVE NEGATIVE [facility] Leukocyte Esterase, Urine TRACE(A) NEGATIVE [facility] WBC, Urine 0-5 < OR = 5 /HPF [facility] Red Blood Cells NONE SEEN < OR = 2 /HPF [facility] Squamous Epithelial Cells, Urine NONE SEEN < OR = 5 /HPF [facility] Bacteria, Urine NONE SEEN NONE SEEN /HPF [facility] Hyaline Casts, Urine NONE SEEN NONE SEEN /LPF [facility] 08/25/2018 10:0 9 AM EST 08/25/2018 10:10 AM EST Historical Provider LAB URINE ORDERAB LES WALDO PEREZ documented in this encounter Visit Diagnoses Not on filedocumented in this encounter
--- OUTSIDE RECORDS SUMMARY | 2024-07-17 09:45 | XMS_ITS | Encounter Summary ---
Author Organization [facility] Address [address] [place] [address] Care Team Providers Care Hazardous Materials Tanker Driver Name Role Phone Errol Underwood MD Unavailable [phone] Errol Underwood MD Primary Care Provider [phone] Source Comments Please be aware that You and/or your organization are solely responsible for the use, security, privacy, and any decisions made with any information you receive from [employer] Encounter Details Date Type Department Care Team (Late st Contact Info) Description 02/06/2022 Orders Only [facility] Well 65+ at [address] [place] [address] [place] [address] Errol Underwood MD [address] [place] [address] Social History Tobacco Use Types [...] Description 09/06/2024 11:00 AM EST Office Visit [facility] Well 65+ at [place] [address] [place] [address] Errol Underwood MD [address] [place] [address] 03/16/2025 11:15 AM EDT Office Visit [facility] at [place] [address] [place] [address] Samuel Winslow MD [address] [place] [address] documented as of this encounter Procedures Procedure Name Priority Date/Time Associated Diagnosis Comments CBC W/AUTO DIFF, REFLEX MANUAL DIFF IF INDICATED Routine 02/06/2022 8:40 AM EDT LIPID PANEL Routine 02/06/2022 8:40 AM EDT COMPREHENSIVE METABOLIC PANEL Routine 02/06/2022 8:40 AM EDT documented in this encounter Results * CBC Auto Diff, Reflex Manual Diff if Indicated (02/06/2022 8:40 AM EDT) White Blood Cell Count 6.7 3.8 - 10.8 Thousand/ uL [facility] Red Blood Cells 4.58 3.80 - 5.10 Million/u L [facility] Hemoglobin 13.3 11.7 - 15.5 g/dL [facility] Hematocrit 40.4 35.0 - 45.0 % [facility] MCV 88.2 80.0 - 100.0 fL [facility] MCH 29.0 27.0 - 33.0 pg [facility] MCHC 32.9 32.0 - 36.0 g/dL [facility] RDW 13.1 11.0 - 15.0 % [facility] Platelet Count 195 140 - 400 Thousand/ uL [facility] MPV 10.2 7.5 - 12.5 fL [facility] Neutrophils Absolute 4,067 1,500 - 7,800 cells/uL [facility] Absolute Band Neutrophils CANCELED 0 - 750 cells/uL [facility] Comment:Result canceled by t he ancillary. Metamyelocytes Absolute CANCELED 0 cells/uL [facility] Comment:Result canceled by t he ancillary. Metamyelocytes Absolute CANCELED 0 cells/uL [facility] Comment:Result canceled by t he ancillary. Promyelocytes Absolute CANCELED 0 cells/uL [facility] Comment:Result canceled by t he ancillary. Lymphocytes Absolute 1,695 850 - 3,900 cells/uL [facility] Monocytes Absolute 717 200 - 950 cells/uL [facility] Eosinophils Absolute 161 15 - 500 cells/uL [facility] Basophil Absolute 60 0 - 200 cells/uL [facility] Blasts Absolute CANCELED 0 cells/uL [facility] Comment:Result canceled by t he ancillary. Absolute Nucleated RBC CANCELED 0 cells/uL [facility] Comment:Result canceled by t he ancillary. Neutrophils % 60.7 % [facility] Band Neutrophils CANCELED % [facility] Comment:Result canceled by t he ancillary. Metamyelocytes % CANCELED % [facility] Comment:Result canceled by t he ancillary. Myelocytes % CANCELED % [facility] Comment:Result canceled by t he ancillary. Promyelocytes % CANCELED % [facility] Comment:Result canceled by t he ancillary. Lymphocytes % 25.3 % [facility] Atypical Lymphocytes % CANCELED 0 - 10 % [facility] Comment:Result canceled by t he ancillary. Monocytes % 10.7 % [facility] Eosinophils % 2.4 % [facility] Basophils 0.9 % [facility] Blasts CANCELED % [facility] Comment:Result canceled by t he ancillary. Nucleated RBC CANCELED 0 /100 WBC [facility] Comment:Result canceled by t he ancillary. Comment(s) CANCELED [facility] Comment:Result canceled by t he ancillary. 02/06/2022 8:40 AM EDT 02/06/2022 8:41 AM EDT Narrative [facility] - 02/06/2022 10:08 PM EDT FASTING:YES FASTING: YES Errol Underwood MD LAB BLOOD ORDERABLE S [facility] [address] [place] [address] * Comprehensive Metabolic Panel (CMP) (02/06/2022 8:40 AM EDT) Glucose 95 65 - 99 mg/dL [facility] Comment: ? Fasting reference interval BUN 13 7 - 25 mg/dL [facility] Creatinine 0.67 0.60 - 1.00 mg/dL [facility] eGFR 94 > OR = 60 mL/min/1. 73m2 [facility] Comment: The eGFR is based on the CKD-EPI 2020 equation. To calculate the new eGFR from a previous Creatinine or Cystatin C result, go to https://www.kidney.org/professionals/ kdoqi/gfr%5Fcalculator BUN/Creatinine Ratio NOT APPLICABLE (calc) [facility] Sodium 139 135 - 146 mmol/L [facility] Potassium 4.8 3.5 - 5.3 mmol/L [facility] Chloride 103 98 - 110 mmol/L [facility] Carbon Dioxide 31 20 - 32 mmol/L [facility] Calcium 9.1 8.6 - 10.4 mg/dL [facility] Protein, Total 6.3 6.1 - 8.1 g/dL [facility] Albumin 3.8 3.6 - 5.1 g/dL [facility] Globulin 2.5 1.9 - 3.7 g/dL (calc) [facility] A/G Ratio 1.5 1.0 - 2.5 (calc) [facility] Bilirubin, Total 0.6 0.2 - 1.2 mg/dL [facility] Alkaline Phosphatase 77 37 - 153 U/L [facility] AST 17 10 - 35 U/L [facility] ALT 13 6 - 29 U/L [facility] 02/06/2022 8:40 AM EDT 02/06/2022 8:41 AM EDT Narrative [facility] - 02/06/2022 10:08 PM EDT FASTING:YES FASTING: YES Errol Underwood MD LAB BLOOD ORDERABLE S Performing Organization Address City/[facility]/ZIP Co de Phone Number [facility] [address] [place] [address] * Lipid Panel (02/06/2022 8:40 AM EDT) Cholesterol, Total 139 <200 mg/dL [facility] HDL Cholesterol 51 > OR = 50 mg/dL [facility] Triglycerides 93 <150 mg/dL [facility] LDL Cholesterol [...] LDL-C. Stuart SS et al. KIMBERLEY. 2013;310(19): 3812-3559 (http://education.[employer]/faq/OSV144) Chol/HDL Ratio 2.7 <5.0 (calc) [facility] Non-HDL Cholesterol 88 <130 mg/dL (calc) [facility] Comment: For patients with diabetes plus 1 major ASCVD risk factor, treating to a non-HDL-C goal of <100 mg/dL (LDL-C of <70 mg/dL) is considered a therapeutic option. 02/06/2022 8:40 AM EDT 02/06/2022 8:41 AM EDT Narrative [facility] - 02/06/2022 10:08 PM EDT FASTING:YES FASTING: YES Errol Underwood MD LAB BLOOD ORDERABLE S Performing Organization Address City/[facility]/ZIP Co de Phone Number [facility] [address] [place] [address] documented in this encounter Visit Diagnoses Not on filedocumented in this encounter Care Teams Hazardous Materials Tanker Driver Relationship Specialty Start Date End Date Errol Underwood MD [address] [place], [place] [id number] PCP - [facility] Attributed Provider 10/18/21 07/19/22 Errol Underwood MD [address] [place] [address] PCP - General Family Medicine 02/05/22 documented as of this encounter
--- OUTSIDE RECORDS SUMMARY | 2024-07-17 09:45 | XMS_ITS | Encounter Summary ---
Author Organization [facility] Address [address] [place] [address] Care Team Providers Care Welder Metal Fab Name Role Phone Errol Underwood MD Primary Care Provider [phone] Source Comments Please be aware that You and/or your organization are solely responsible for the use, security, privacy, and any decisions made with any information you receive from [employer] Encounter Details Date Type Department Care Team (Latest Contact Info) Description 10/17/2022 Travel Social History Tobacco Use Types Packs/Day [...] often do you attend chur ch or anabaptism services? Never 08/20/2022 Do you belong to any clubs o r organizations such as mormonism groups, unions, fraternal or athletic groups, or [...] place to sleep or slept in a long term (including now)? 2 08/19/2022 Sex and Gender [...] PM EDT documented as of this encounter Plan of Treatment Upcoming Encounters Date Type Department Care Team (Late st Contact Info) Description 09/06/2024 11:00 AM EST Office Visit [facility] Well 65+ at [place] [address] [place] [phone] Errol Underwood MD [address] [place], [place] [phone] 03/16/2025 11:15 AM EDT Office Visit [facility] Urology at [place] [address] [place] [address] Samuel Winslow MD [address] [place] [address] documented as of this encounter Visit Diagnoses Not on filedocumented in this encounter Additional Health Concerns Assessment Noted Time A fall risk assessment has been complete d for the patient 08/20/2022 9:51 AM EST documented as of this encounter Care Teams Welder Metal Fab Relationship Specialty Start Date End Date Errol Underwood MD PCP - General Family Medicine 02/05/22 documented as of this encounter
--- OUTSIDE RECORDS SUMMARY | 2024-07-17 09:45 | XMS_ITS | Encounter Summary ---
Author Organization [facility] Address [address] [place] [address] Care Team Providers Care Crm Consultant Name Role Phone Errol Underwood MD Primary Care Provider [phone] Source Comments Please be aware that You and/or your organization are solely responsible for the use, security, privacy, and any decisions made with any information you receive from [employer] Encounter Details Date Type Department Care Team (Latest Contact Info) Description 10/08/2022 Travel Social History Tobacco Use Types Packs/Day [...] attend chur ch or uatsdin services? Never 08/20/2022 Do you belong to any clubs o r organizations such as quaker groups, unions, fraternal or athletic groups, or [...] slept in a residential (including now)? 2 08/19/2022 Sex and Gender [...] Description 09/06/2024 11:00 AM EST Office Visit [facility] Well 65+ at [place] [address] [place] [phone] Errol Underwood MD [address] [place], [place] [phone] 03/16/2025 11:15 AM EDT Office Visit [facility] Urology at [place] [address] [place] [address] Samuel Winslow MD [address] [place] [address] documented as of this encounter Visit Diagnoses Not on filedocumented in this encounter Additional Health Concerns Assessment Noted Time A fall risk assessment has been complete d for the patient 08/20/2022 9:51 AM EST documented as of this encounter Care Teams Crm Consultant Relationship Specialty Start Date End Date Errol Underwood MD PCP - General Family Medicine 02/05/22 documented as of this encounter
--- OUTSIDE RECORDS SUMMARY | 2024-07-17 09:45 | XMS_ITS | Encounter Summary ---
Author Organization [facility] Address [address] [place] [address] Care Team Providers Care Cash Register Operator Name Role Phone Errol Underwood MD Primary Care Provider [phone] Source Comments Please be aware that You and/or your organization are solely responsible for the use, security, privacy, and any decisions made with any information you receive from [employer] Reason for Visit * Reason Onset Date Comments Results 10/09/2022 Encounter Details Date Type Department Care Team (Late st Contact Info) Description 10/09/2022 Telephone [facility] Well 65+ at [place] [address] [place] [address] Errol Underwood MD [address] [place] [address] Results Social History Tobacco Use Types Packs/Day Years [...] often do you attend chur ch or samaritan services? Never 08/20/2022 Do you belong to any clubs o r organizations such as muslim groups, unions, fraternal or athletic groups, or [...] place to sleep or slept in a long-term (including now)? 2 08/19/2022 Sex and Gender [...] PM EDT documented as of this encounter Miscellaneous Notes * Telephone Encounter - Elise Kerr CMA - 10/09/2022 8:48 AM EDT Spoke with patient and made aware of Bone density test. She has upcoming appointment as well. * Telephone Encounter - Elise Kerr CMA - 10/09/2022 8:45 AM EDT ----- Message from Errol Underwood MD sent at 10/09/2022 7:24 AM EDT ----- Bone density showing osteopenia, recommend continued calcium, vitamin-D supplement, weight-bearing exercise and will likely repeat bone density in around 2 years. Will discuss this in person at her visit next week as well documented in this encounter Plan of Treatment Upcoming Encounters Date Type Department Care Team (Late st Contact Info) Description 09/06/2024 11:00 AM EST Office Visit [facility] Well 65+ at [place] [address] [place] [phone] Errol Underwood MD [address] [place], [place] [id number] 03/16/2025 11:15 AM EDT Office Visit [facility] Urology at [place] [address] [place] [address] Samuel Winslow MD [address] [place] [address] documented as of this encounter Visit Diagnoses Not on filedocumented in this encounter Additional Health Concerns Assessment Noted Time A fall risk assessment has been complete d for the patient 08/20/2022 9:51 AM EST documented as of this encounter Care Teams Cash Register Operator Relationship Specialty Start Date End Date Errol Underwood MD PCP - General Family Medicine 02/05/22 documented as of this encounter
--- OUTSIDE RECORDS SUMMARY | 2024-07-17 09:45 | XMS_ITS | Encounter Summary ---
Author Organization [facility] Address [address] [place] [address] Care Team Providers Care Sales Performance Analyst Name Role Phone Errol Underwood MD Primary Care Provider [phone] Source Comments Please be aware that You and/or your organization are solely responsible for the use, security, privacy, and any decisions made with any information you receive from [employer] Encounter Details Date Type Department Care Team (Late st Contact Info) Description 11/19/2022 [facility] Well 65+ at [place] [address] [place] [address] Errol Underwood MD [address] [place] [address] Social History Tobacco Use Types [...] How often do you attend chur or methodist services? Never 08/20/2022 Do you belong to [...] place to sleep or slept in a longterm (including now)? 2 08/19/2022 Sex and Gender Information Value Date Recorded Sex Assigned at Not on file Gender Identity Not on file Sexual Orientation Not on file documented as of this encounter Plan of Treatment Upcoming Encounters Date Type Department Care Team (Late st Contact Info) Description 09/06/2024 11:00 AM EST Office Visit [facility] Well 65+ at [place] [address] [place] [phone] Errol Underwood MD [address] [place] [address] 03/16/2025 11:15 AM EDT Office Visit [facility] Urology at [place] [address] [place] [address] Samuel Winslow MD [address] [place] [address] documented as of this encounter Procedures Procedure Name Priority Date/Time Associated Diagnosis Comments EXTERNAL X-RAY REPORT 12/17/2022 1:10 PM EDT documented in this encounter Results * EXTERNAL X-RAY REPORT (12/17/2022 1:10 PM EDT) Anatomical Region Laterality Modality Radiographic Holly ging Errol Underwood MD IMG XR PROCEDURES documented in this encounter Visit Diagnoses Not on filedocumented in this encounter Additional Health Concerns Assessment Noted Time A fall risk assessment has been complete d for the patient 08/20/2022 9:51 AM EST documented as of this encounter Care Teams Sales Performance Analyst Relationship Specialty Start Date End Date Errol Underwood MD PCP - General Family Medicine 02/05/22 documented as of this encounter
--- OUTSIDE RECORDS SUMMARY | 2024-07-17 09:45 | XMS_ITS | Encounter Summary ---
Author Organization [facility] Address [address] [place] [address] Care Team Providers Care Almond Blancher Name Role Phone Unavailable Primary Care Provider Unavailabl e Source Comments Please be aware that You and/or your organization are solely responsible for the use, security, privacy, and any decisions made with any information you receive from [employer] Encounter Details Date Type Department Care Team (Late Contact Info) Description 07/25/2020 [facility] Encounter EST Converstion Department [address] [place] [address] Provider, MD Kimani [address] [place], [place] [address] Social History Tobacco Use Types Packs/Day Years Used Date Smoking Tobacco: Never Assessed Sex and Gender Information Value Date Recorded Sex Assigned at Not on file Gender Identity Not on file Sexual Orientation Not on file documented as of this encounter Plan of Treatment Upcoming Encounters Date Type Department Care Team (Late Contact Info) Description 09/06/2024 11:00 AM EST Office Visit [facility] Well 65+ at [place] [address] [place] [address] Errol Underwood MD [address] [facility] [place] [address] 03/16/2025 11:15 AM EDT Office Visit [facility] U[facility] at [place] [address] [place] [address] Samuel Winslow MD [address] [place] [address] documented as of this encounter Procedures Procedure Name Priority Date/Time Associated Diagnosis Comments CBC W/AUTO DIFF, REFLEX MANUAL DIFF IF INDICATED Routine 07/25/2020 7:39 AM EST LIPID PANEL Routine 07/25/2020 7:39 AM EST COMPREHENSIVE METABOLIC PANEL Routine 07/25/2020 7:39 AM EST documented in this encounter Results * CBC Auto Diff, Reflex Manual Diff if Indicated (07/25/2020 7:39 AM EST) White Blood Cell Count 6.2 3.8 - 10.8 Thousand/u L [facility] Red Blood Cells 4.66 3.80 - 5.10 Million/uL [facility] Hemoglobin 13.7 11.7 - 15.5 g/dL [facility] Hematocrit 41.6 35.0 - 45.0 % [facility] MCV 89.3 80.0 - 100.0 fL [facility] MCH 29.4 27.0 - 33.0 pg [facility] MCHC 32.9 32.0 - 36.0 g/dL [facility] RDW 13.3 11.0 - 15.0 % [facility] Platelet Count 169 140 - 400 Thousand/u L [facility] MPV 10.7 7.5 - 12.5 fL [facility] Neutrophils Absolute 3,658 1,500 - 7,800 cells/uL [facility] Lymphocytes Absolute 1,730 850 - 3,900 cells/uL [facility] Monocytes Absolute 632 200 - 950 cells/uL [facility] Eosinophils Absolute 143 15 - 500 cells/uL [facility] Basophil Absolute 37 0 - 200 cells/uL [facility] Neutrophils, % 59 % [facility] Lymphocytes Absolute 27.9 % [facility] Monocytes % 10.2 % [facility] Eosinphils % 2.3 % [facility] Basophils 0.6 % [facility] 07/25/2020 7:39 AM EST 07/25/2020 7:39 AM EST Narrative [facility] - 07/25/2020 9:46 PM EST FASTING: Y FASTING:YES Historical Provider MD LAB BLOOD ORDERAB LES Performing Organization Address City/[facility]/ZIP Co de Phone Number [facility] * Comprehensive Metabolic Panel (CMP) (07/25/2020 7:39 AM EST) Pathologist [facility] [place] Glucose 91 65 - 99 mg/dL [facility] Comment: ? Fasting reference interval BUN 13 7 - 25 mg/dL [facility] Creatinine 0.69 0.50 - 0.99 mg/dL [facility] Comment: For patients >49 years of age, the reference limit for Creatinine is approximately 13% higher for people identified as -Citizen Of [place]. eGFR Non-Afr. Citizen Of [place] 89 > OR = 60 mL/min/1 .73m2 [facility] eGFR 103 > OR = 60 mL/min/1 .73m2 [facility] BUN/Creatinine Ratio NOT APPLICABLE 6 - 22 (calc) [facility] Sodium 140 135 - 146 mmol/L [facility] Potassium 4.5 3.5 - 5.3 mmol/L [facility] Chloride 105 98 - 110 mmol/L [facility] Carbon Dioxide 27 20 - 32 mmol/L [facility] Calcium 9.2 8.6 - 10.4 mg/dL [facility] Protein, Total 6.3 6.1 - 8.1 g/dL [facility] Albumin 4.0 3.6 - 5.1 g/dL [facility] Globulin 2.3 1.9 - 3.7 g/dL (calc) [facility] A/G Ratio 1.7 1.0 - 2.5 (calc) [facility] Bilirubin, Total 0.8 0.2 - 1.2 mg/dL [facility] Alkaline Phosphatase 83 37 - 153 U/L [facility] AST 17 10 - 35 U/L [facility] ALT 14 6 - 29 U/L [facility] 07/25/2020 7:39 AM EST 07/25/2020 7:39 AM EST Narrative [facility] - 07/25/2020 9:46 PM EST FASTING: Y FASTING:YES Historical Provider MD LAB BLOOD ORDERAB LES [facility] * (ABNORMAL) Lipid Panel (07/25/2020 7:39 AM EST) Pathologist [facility] [place] Cholesterol, Total 134 <200 mg/dL [facility] HDL Cholesterol 48(L) > OR = 50 mg/dL [facility] Triglycerides 73 <150 mg/dL [facility] LDL Cholesterol 71 mg/dL (calc) [facility] Chol/HDL Ratio 2.8 <5.0 (calc) [facility] Non-HDL Cholesterol 86 <130 mg/dL (calc) [facility] 07/25/2020 7:39 AM EST 07/25/2020 7:39 AM EST Narrative [facility] - 07/25/2020 9:46 PM EST FASTING: Y FASTING:YES Historical Provider LAB BLOOD ORDERAB LES [facility] documented in this encounter Visit Diagnoses Not on filedocumented in this encounter
--- OUTSIDE RECORDS SUMMARY | 2024-07-17 09:45 | XMS_ITS | Encounter Summary ---
Author Organization [facility] Address [address] [place] [address] Care Team Providers Care Heating Element Builder Name Role Phone Unavailable Primary Care Provider Unavailabl e Source Comments Please be aware that You and/or your organization are solely responsible for the use, security, privacy, and any decisions made with any information you receive from [employer] Encounter Details Date Type Department Care Team (Late Contact Info) Description 01/25/2021 [facility] Encounter EST Converstion Department [address] [place] [address] Provider, MD Kimani [address] [place], [place] [address] Social History Tobacco Use Types Packs/Day Years Used Date Smoking Tobacco: Never Assessed Sex and Gender Information Value Date Recorded Sex Assigned at Not on file Gender Identity Not on file Sexual Orientation Not on file documented as of this encounter Plan of Treatment Upcoming Encounters Date Type Department Care Team ([facility] Contact Info) Description 09/06/2024 11:00 AM EST Office Visit [facility] Well 65+ at [place] [address] [place] [address] Errol Underwood MD [address] [place], [place] [id number] 03/16/2025 11:15 AM EDT Office Visit [facility] Urology at [place] [address] [place] [address] Samuel Winslow MD [address] [place] [address] documented as of this encounter Procedures Procedure Name Priority Date/Time Associated Diagnosis Comments CBC W/AUTO DIFF, REFLEX MANUAL DIFF IF INDICATED Routine 01/25/2021 7:11 AM EDT LIPID PANEL Routine 01/25/2021 7:11 AM EDT COMPREHENSIVE METABOLIC PANEL Routine 01/25/2021 7:11 AM EDT documented in this encounter Results * CBC Auto Diff, Reflex Manual Diff if Indicated (01/25/2021 7:11 AM EDT) White Blood Cell Count 5.6 3.8 - 10.8 Thousand/u L [facility] Red Blood Cells 4.39 3.80 - 5.10 Million/uL [facility] Hemoglobin 13.5 11.7 - 15.5 g/dL [facility] Hematocrit 39.8 35.0 - 45.0 % [facility] MCV 90.7 80.0 - 100.0 fL [facility] MCH 30.8 27.0 - 33.0 pg [facility] MCHC 33.9 32.0 - 36.0 g/dL [facility] RDW 13.1 11.0 - 15.0 % [facility] Platelet Count 215 140 - 400 Thousand/u L [facility] MPV 10.0 7.5 - 12.5 fL [facility] Neutrophils Absolute 3,287 1,500 - 7,800 cells/uL [facility] Lymphocytes Absolute 1,585 850 - 3,900 cells/uL [facility] Monocytes Absolute 526 200 - 950 cells/uL [facility] Eosinophils Absolute 140 15 - 500 cells/uL [facility] Basophil Absolute 62 0 - 200 cells/uL [facility] Neutrophils, % 58.7 % [facility] Lymphocytes Absolute 28.3 % [facility] Monocytes % 9.4 % [facility] Eosinphils % 2.5 % [facility] Basophils 1.1 % [facility] 01/25/2021 7:11 AM EDT 01/25/2021 7:11 AM EDT Narrative [facility] - 01/26/2021 3:02 AM EDT FASTING:YES Historical Provider LAB BLOOD ORDERAB LES Performing Organization Address City/[facility]/ZIP Co de Phone Number [facility] * Comprehensive Metabolic Panel (CMP) (01/25/2021 7:11 AM EDT) Pathologist [facility] Glucose 96 65 - 99 mg/dL [facility] Comment: ? Fasting reference interval BUN 14 7 - 25 mg/dL [facility] Creatinine 0.61 0.50 - 0.99 mg/dL [facility] Comment: For patients >49 years of age, the reference limit for Creatinine is approximately 13% higher for people identified as -[place]. eGFR Non-Afr. [place] 92 > OR = 60 mL/min/1 .73m2 [facility] eGFR 107 > OR = 60 mL/min/1 .73m2 [facility] BUN/Creatinine Ratio NOT APPLICABLE 6 - 22 (calc) [facility] Sodium 138 135 - 146 mmol/L [facility] Potassium 4.5 3.5 - 5.3 mmol/L [facility] Chloride 103 98 - 110 mmol/L [facility] Carbon Dioxide 31 20 - 32 mmol/L [facility] Calcium 9.1 8.6 - 10.4 mg/dL [facility] Protein, Total 6.3 6.1 - 8.1 g/dL [facility] Albumin 3.8 3.6 - 5.1 g/dL [facility] Globulin 2.5 1.9 - 3.7 g/dL (calc) [facility] A/G Ratio 1.5 1.0 - 2.5 (calc) [facility] Bilirubin, Total 0.7 0.2 - 1.2 mg/dL [facility] Alkaline Phosphatase 77 37 - 153 U/L [facility] AST 14 10 - 35 U/L [facility] ALT 12 6 - 29 U/L [facility] 01/25/2021 7:11 AM EDT 01/25/2021 7:11 AM EDT Narrative [facility] - 01/26/2021 3:02 AM EDT FASTING:YES Historical Provider LAB BLOOD ORDERAB LES Performing Organization Address City/[facility]/ZIP Co de Phone Number [facility] * Lipid Panel (01/25/2021 7:11 AM EDT) Pathologist [facility] Cholesterol, Total 134 <200 mg/dL [facility] HDL Cholesterol 54 > OR = 50 mg/dL [facility] Triglycerides 79 <150 mg/dL [facility] LDL Cholesterol 64 mg/dL (calc) [facility] Chol/HDL Ratio 2.5 <5.0 (calc) [facility] Non-HDL Cholesterol 80 <130 mg/dL (calc) [facility] 01/25/2021 7:11 AM EDT 01/25/2021 7:11 AM EDT Narrative [facility] - 01/26/2021 3:02 AM EDT FASTING:YES Historical Provider LAB BLOOD ORDERAB LES [facility] documented in this encounter Visit Diagnoses Not on filedocumented in this encounter
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
--- OUTSIDE RECORDS SUMMARY | 2024-07-17 09:45 | XMS_ITS | Encounter Summary ---
Author Organization [facility] Address [address] [place] [address] Care Team Providers Care Distribution Operations Supervisor Name Role Phone Unavailable Primary Care Provider Unavailabl e Source Comments Please be aware that You and/or your organization are solely responsible for the use, security, privacy, and any decisions made with any information you receive from [facility] Encounter Details Date Type Department Care Team (Late st Contact Info) Description 07/23/2021 [facility] Encounter EST Converstion Department [address] [place] [phone] Errol Underwood MD [address] [place] [address] Social History Tobacco Use Types [...] Description 09/06/2024 11:00 AM EST Office Visit [facility] Well 65+ at [place] [address] [place] [address] Errol Underwood MD [address] [place] [address] 03/16/2025 11:15 AM EDT Office Visit [facility] at [place] [address] [place] [address] Samuel Winslow MD [address] [place] [address] documented as of this encounter Procedures Procedure Name Priority Date/Time Associated Diagnosis Comments CBC W/AUTO DIFF, REFLEX MANUAL DIFF IF INDICATED Routine 07/23/2021 8:33 AM EST LIPID PANEL Routine 07/23/2021 8:33 AM EST COMPREHENSIVE METABOLIC PANEL Routine 07/23/2021 8:33 AM EST documented in this encounter Results * CBC Auto Diff, Reflex Manual Diff if Indicated (07/23/2021 8:33 AM EST) White Blood Cell Count 6.4 3.8 - 10.8 Thousand/u L [facility] Red Blood Cells 4.30 3.80 - 5.10 Million/uL [facility] Hemoglobin 13.4 11.7 - 15.5 g/dL [facility] Hematocrit 39.1 35.0 - 45.0 % [facility] MCV 90.9 80.0 - 100.0 fL [facility] MCH 31.2 27.0 - 33.0 pg [facility] MCHC 34.3 32.0 - 36.0 g/dL [facility] RDW 13.1 11.0 - 15.0 % [facility] Platelet Count 190 140 - 400 Thousand/u L [facility] MPV 10.4 7.5 - 12.5 fL [facility] Neutrophils Absolute 3,994 1,500 - 7,800 cells/uL [facility] Lymphocytes Absolute 1,510 850 - 3,900 cells/uL [facility] Monocytes Absolute 717 200 - 950 cells/uL [facility] Eosinophils Absolute 128 15 - 500 cells/uL [facility] Basophil Absolute 51 0 - 200 cells/uL [facility] Neutrophils, % 62.4 % [facility] Lymphocytes Absolute 23.6 % [facility] Monocytes % 11.2 % [facility] Eosinphils % 2.0 % [facility] Basophils 0.8 % [facility] 07/23/2021 8:33 AM EST 07/23/2021 8:33 AM EST Narrative [facility] - 07/24/2021 3:40 AM EST FASTING:YES Errol Underwood MD LAB BLOOD ORDERABLE S Performing Organization Address City/[facility]/ZIP Co de Phone Number [facility] * Comprehensive Metabolic Panel (CMP) (07/23/2021 8:33 AM EST) [facility] Glucose 94 65 - 99 mg/dL [facility] Comment: ? Fasting reference interval BUN 14 7 - 25 mg/dL [facility] Creatinine 0.70 0.60 - 0.93 mg/dL [facility] Comment: For patients >49 years of age, the reference limit for Creatinine is approximately 13% higher for people identified as -Swazi. eGFR Non-Afr. Swazi 88 > OR = 60 mL/min/1 .73m2 [facility] eGFR 102 > OR = 60 mL/min/1 .73m2 [facility] BUN/Creatinine Ratio NOT APPLICABLE 6 - 22 (calc) [facility] Sodium 139 135 - 146 mmol/L [facility] Potassium 4.2 3.5 - 5.3 mmol/L [facility] Chloride 102 98 - 110 mmol/L [facility] Carbon Dioxide 31 20 - 32 mmol/L [facility] Calcium 9.0 8.6 - 10.4 mg/dL [facility] Protein, Total 6.5 6.1 - 8.1 g/dL [facility] Albumin 3.8 3.6 - 5.1 g/dL [facility] Globulin 2.7 1.9 - 3.7 g/dL (calc) [facility] A/G Ratio 1.4 1.0 - 2.5 (calc) [facility] Bilirubin, Total 0.7 0.2 - 1.2 mg/dL [facility] Alkaline Phosphatase 90 37 - 153 U/L [facility] AST 16 10 - 35 U/L [facility] ALT 12 6 - 29 U/L [facility] 07/23/2021 8:33 AM EST 07/23/2021 8:33 AM EST Narrative [facility] - 07/24/2021 3:40 AM EST FASTING:YES Errol Underwood MD LAB BLOOD ORDERABLE S Performing Organization Address City/[facility]/ZIP Co de Phone Number [facility] * Lipid Panel (07/23/2021 8:33 AM EST) Cholesterol, Total 136 <200 mg/dL [facility] HDL Cholesterol 52 > OR = 50 mg/dL [facility] Triglycerides 94 <150 mg/dL [facility] LDL Cholesterol 66 mg/dL (calc) [facility] Comment: Reference range: <100 Desirable range <100 mg/dL for primary prevention; ?? <70 mg/dL for patients with CHD or diabetic patients with > or = 2 CHD risk factors. LDL-C is now calculated using the Kristy calculation, which is a validated novel method providing better accuracy than the Friedewald equation in the estimation of LDL-C. Stuart PARK et al. KIMBERLEY. 2013;310(19): 4686-8522 (http://education.Wenju[employer].com/faq/PBI800) Chol/HDL Ratio 2.6 <5.0 (calc) [facility] Non-HDL Cholesterol 84 <130 mg/dL (calc) [facility] Comment: For patients with diabetes plus 1 major ASCVD risk factor, treating to a non-HDL-C goal of <100 mg/dL (LDL-C of <70 mg/dL) is considered a therapeutic option. 07/23/2021 8:33 AM EST 07/23/2021 8:33 AM EST Narrative [facility] - 07/24/2021 3:40 AM EST FASTING:YES Errol Underwood MD LAB BLOOD ORDERABLE S [facility] documented in this encounter Visit Diagnoses Not on filedocumented in this encounter
--- OUTSIDE RECORDS SUMMARY | 2024-07-17 09:45 | XMS_ITS | Encounter Summary ---
Author Organization Replaced by [facility] Address [address] [place] [address] Care Team Providers Care Log Loader Name Role Phone Errol Underwood MD Unavailable [phone] Errol Underwood MD Primary Care Provider Source Comments Please be aware that You and/or your organization are solely responsible for the use, security, privacy, and any decisions made with any information you receive from [email or web address] Reason for Visit * Reason Comments Med Refill Encounter Details Date Type Department Care Team (Late st Contact Info) Description 06/25/2022 Refill Replaced by [facility] Well 65+ at [address] [address] Errol Underwood MD [address] [place] [address] Anxiety Social History Tobacco Use [...] encounter Miscellaneous Notes * Telephone Encounter - Swetha Angulo LPN - 06/25/2022 12:59 PM EST Patient requeRX refill request(s) sent to provider for review. documented in this encounter Plan of Treatment Upcoming Encounters Date Type Department Care Team (Late st Contact Info) Description 09/06/2024 11:00 AM EST Office Visit [facility] Well 65+ at [place] [address] [place] [phone] Errol Underwood MD [address] [place], [place] [id number] 03/16/2025 11:15 AM EDT Office Visit [facility] U[facility] at [place] [address] [place] [address] Samuel Winslow MD [address] [place] [address] documented as of this encounter Visit Diagnoses Diagnosis Anxiety Anxiety state, unspecified documented in this encounter Care Teams Log Loader Relationship Specialty Start Date End Date Errol Underwood MD [address] [place], [place] [id number] PCP - [facility] ACO REACH Attributed Provider 10/18/21 07/19/22 Errol Underwood MD [address] [place], [place] [id number] PCP - General Family Medicine 02/05/22 documented as of this encounter
--- OUTSIDE RECORDS SUMMARY | 2024-07-17 09:45 | XMS_ITS | Encounter Summary ---
Author Organization Formerly [facility] Address [address] [place] [address] Care Team Providers Care Rod Mill Tender Name Role Phone Unavailable Primary Care Provider Unavailabl e Source Comments Please be aware that You and/or your organization are solely responsible for the use, security, privacy, and any decisions made with any information you receive from [facility] Encounter Details Date Type Department Care Team (Late Contact Info) Description 01/10/2020 [facility] Encounter EST Converstion Department [address] [place] [address] Provider, MD Kimani [address] [place], [place] [address] Social History Tobacco Use Types Packs/Day Years Used Date Smoking Tobacco: Never Assessed Sex and Gender Information Value Date Recorded Sex Assigned at Not on file Gender Identity Not on file Sexual Orientation Not on file documented as of this encounter Plan of Treatment Upcoming Encounters Date Type Department Care Team ([facility] Contact Info) Description 09/06/2024 11:00 AM EST Office Visit [facility] Well 65+ at [place] [address] [place] [address] Errol Underwood MD [address] [facility] [place], [place] [phone] 03/16/2025 11:15 AM EDT Office Visit [facility] Urology at [place] [address] [place] [address] Samuel Winslow MD [address] [place] [address] [address] [place] [address] documented as of this encounter Procedures Procedure Name Priority Date/Time Associated Diagnosis Comments CBC W/AUTO DIFF, REFLEX MANUAL DIFF IF INDICATED Routine 01/10/2020 7:09 AM EDT LIPID PANEL Routine 01/10/2020 7:09 AM EDT COMPREHENSIVE METABOLIC PANEL Routine 01/10/2020 7:09 AM EDT documented in this encounter Results * CBC Auto Diff, Reflex Manual Diff if Indicated (01/10/2020 7:09 AM EDT) White Blood Cell Count 6.1 3.8 - 10.8 Thousand/u L [facility] Red Blood Cells 4.31 3.80 - 5.10 Million/uL [facility] Hemoglobin 12.9 11.7 - 15.5 g/dL [facility] Hematocrit 40.2 35.0 - 45.0 % [facility] MCV 93.3 80.0 - 100.0 fL [facility] MCH 29.9 27.0 - 33.0 pg [facility] MCHC 32.1 32.0 - 36.0 g/dL [facility] RDW 13.1 11.0 - 15.0 % [facility] Platelet Count 221 140 - 400 Thousand/u L [facility] MPV 10.0 7.5 - 12.5 fL [facility] Neutrophils Absolute 3,581 1,500 - 7,800 cells/uL [facility] Lymphocytes Absolute 1,635 850 - 3,900 cells/uL [facility] Monocytes Absolute 665 200 - 950 cells/uL [facility] Eosinophils Absolute 171 15 - 500 cells/uL [facility] Basophil Absolute 49 0 - 200 cells/uL [facility] Neutrophils, % 58.7 % [facility] Lymphocytes Absolute 26.8 % [facility] Monocytes % 10.9 % [facility] Eosinphils % 2.8 % [facility] Basophils 0.8 % [facility] 01/10/2020 7:09 AM EDT 01/10/2020 7:11 AM EDT Narrative [facility] - 01/11/2020 5:23 AM EDT FASTING:YES Historical Provider LAB BLOOD ORDERAB LES [facility] * (ABNORMAL) Comprehensive Metabolic Panel (CMP) (01/10/2020 7:09 AM EDT) [facility] Glucose 93 65 - 99 mg/dL [facility] Comment: ? Fasting reference interval BUN 14 7 - 25 mg/dL [facility] Creatinine 0.72 0.50 - 0.99 mg/dL [facility] Comment: For patients >49 years of age, the reference limit for Creatinine is approximately 13% higher for people identified as -Eritrean. eGFR Non-Afr. Eritrean 86 > OR = 60 mL/min/1 .73m2 [facility] eGFR 100 > OR = 60 mL/min/1 .73m2 [facility] BUN/Creatinine Ratio NOT APPLICABLE 6 - 22 (calc) [facility] Sodium 139 135 - 146 mmol/L [facility] Potassium 4.2 3.5 - 5.3 mmol/L [facility] Chloride 104 98 - 110 mmol/L [facility] Carbon Dioxide 29 20 - 32 mmol/L [facility] Calcium 8.9 8.6 - 10.4 mg/dL [facility] Protein, Total 6.0(L) 6.1 - 8.1 g/dL [facility] Albumin 3.7 3.6 - 5.1 g/dL [facility] Globulin 2.3 1.9 - 3.7 g/dL (calc) [facility] A/G Ratio 1.6 1.0 - 2.5 (calc) [facility] Bilirubin, Total 0.7 0.2 - 1.2 mg/dL [facility] Alkaline Phosphatase 97 37 - 153 U/L [facility] AST 14 10 - 35 U/L [facility] ALT 11 6 - 29 U/L [facility] 01/10/2020 7:09 AM EDT 01/10/2020 7:11 AM EDT Narrative [facility] - 01/11/2020 5:23 AM EDT FASTING:YES Historical Provider LAB BLOOD ORDERAB LES [facility] * (ABNORMAL) Lipid Panel (01/10/2020 7:09 AM EDT) Pathologist [facility] Cholesterol, Total 127 <200 mg/dL [facility] HDL Cholesterol 46(L) > OR = 50 mg/dL [facility] Triglycerides 97 <150 mg/dL [facility] LDL Cholesterol 63 mg/dL (calc) [facility] Chol/HDL Ratio 2.8 <5.0 (calc) [facility] Non-HDL Cholesterol 81 <130 mg/dL (calc) [facility] 01/10/2020 7:09 AM EDT 01/10/2020 7:11 AM EDT Narrative [facility] - 01/11/2020 5:23 AM EDT FASTING:YES Historical Provider LAB BLOOD ORDERAB LES [facility] documented in this encounter Visit Diagnoses Not on filedocumented in this encounter
--- OUTSIDE RECORDS SUMMARY | 2024-07-17 10:27 | XMS_ITS | Encounter Summary ---
Author Organization [facility] Address [address] [place] [address] Care Team Providers Care Mortgage Clerk Name Role Phone Errol Underwood MD Primary Care Provider Errol Underwood MD Unavailable [phone] Errol Underwood MD Unavailable [phone] Source Comments Please be aware that You and/or your organization are solely responsible for the use, security, privacy, and any decisions made with any information you receive from [facility] Reason for Visit * Reason Comments Med Refill Encounter Details Date Type Department Care Team (Late st Contact Info) Description 06/13/2024 Refill [facility] Well 65+ at [place] [address] [place] [address] Errol Underwood MD [address] [place] [address] Anxiety Social History Tobacco Use [...] often do you attend chur ch or rastafarian services? Never 03/06/2023 Do you belong to any clubs o r organizations such as faith groups, unions, fraternal or athletic groups, or [...] Recorded Patient Health Questionnaire-2 Score 0 2024 [facility] [place] of Occupat ional Health - Occupational Stress [...] rent on time? 2 03/06/2023 [facility] Places Lived Last Flowsheet Value Most Recent Result Not on file 03/06/2023 In the last 12 months, was t here a time when you did not have a steady place to sleep or slept in a care home (including now)? 2 03/06/2023 Health Literacy Answer Date Recorded How often do you need to hav e someone help you when you read instructions, pamphlets, or other written material from your doctor or pharmacy? Never 01/31/2024 [facility] Food Security Answer Date Recorded Within the past 12 months, t he food you bought just didn't last and you didn't have money to get more. 3 01/31/2024 Within the past 12 months, y ou worried that your food would run out before you got money to buy more. 3 01/31/2024 [facility] Transportation Needs Answer Date Re corded In the past 12 months, has l ack of reliable transportation kept you from medical appointments, meetings, work or from getting things needed for daily living? No 01/31/2024 [facility] Housing Answer Date Recorded What is your living situation today? I have a [facility] [place] place to live 01/31/[address] you li ve. Do you have problems with any of the following? None of the above 01/31/2024 [facility] Safety Answer Date Recorded How often [...] scream or curse at you? 1 01/31/2024 [facility] Utilities Answer Date Recorded In the past 12 months has [employer], gas, oil, or water [employer] threatened to shut off services in your [...] Description 09/06/2024 11:00 AM EST Office Visit [facility] Well 65+ at [place] [address] [place] [phone] Errol Underwood MD [address] [place] [address] 03/16/2025 11:15 AM EDT Office Visit [facility] Urology at [place] [address] [place] [address] Samuel Winslow MD [address] [place] [address] documented as of this encounter Visit Diagnoses Diagnosis Anxiety Anxiety state, unspecified documented in this encounter Additional Health Concerns Assessment Noted Time A fall risk assessment has been complete d for the patient 2024 1:29 PM EDT documented as of this encounter Care Teams Mortgage Clerk Relationship Specialty Start Date End Date Errol Underwood MD PCP - General Family Medicine 02/05/22 Errol Underwood MD [address] [place] [address] PCP - W65+ ACO REACH Attributed Provider 01/18/24 Errol Underwood MD [address] [place] [address] W65+ Responsible Provider Family Medicine 05/20/24 documented as of this encounter
--- OUTSIDE RECORDS SUMMARY | 2024-07-17 10:27 | XMS_ITS | Clinical Summary ---
Author Organization [facility] Address [address] [place] [address] Care Team Providers Care Fabrics And Material Cutter Name Role Phone Errol Underwood MD Primary Care Provider Errol Underwood MD Unavailable [phone] Errol Underwood MD Unavailable Allergies Active Allergy Reactions Criticality Noted Date Comments Tamsulosin 02/25/2024 Medications Medication Sig Dispensed Refills Start Date End Date Status Calcium Carbonate-Vitamin D 600-200 MG-UNIT capsule Take 1 capsule every day by oral route. Active aspirin (aspirin) 81 MG EC tablet Patient stated, Yes, its chewable. Active lansoprazole (Prevacid) [address] capsuleIndications:Ga stroesophageal reflux disease with esophagitis, unspecified whether hemorrhage TAKE 1 CAPSULE BY MOUTH EVERY DAY BEFORE A MEAL 90 capsule 3 08/31/2023 Active atorvastatin (Lipitor) 20 MG tabletIndications:Mix ed hyperlipidemia Take 1 tablet (20 mg total) by mouth 1 (one) time each day. 90 tablet 3 08/31/2023 08/30/2024 Active atenolol-chlorthalido ne (Tenoretic 50) 50-25 MG tabletIndications:Hyp ertension, essential Take 0.5 tablets by mouth 1 (one) time each day. 45 tablet 3 2024 2025 Active ALPRAZolam (Xanax) 0.5 MG tabletIndications:Anx iety TAKE 1 TABLET(0.5 MG) BY MOUTH AT NIGHT NEEDED FOR ANXIETY 30 tablet 06/14/2024 Active Active Problems Problem Noted Date Diagnosed Date Mixed hyperlipidemia 05/26/2014 Hypertension, essential 05/26/2014 Gastroesophageal reflux disease 04/14/2010 Anxiety state 04/14/2010 Resolved Problems Problem Noted Date Diagnosed Date Resolved Date Syncope 01/30/2024 01/31/2024 Syncope, unspecified syncope type 01/30/2024 01/31/2024 Patellar tendonitis 03/15/2014 08/20/19 23 Encounters Date Type Department Care Team Description 06/13/2024 Refill [facility] Well 65+ at [place] [address] [place] [phone] Errol Underwood MD Anxiety 05/13/2024 10:50 AM EDT - 05/13/2024 11:59 PM EDT Hospital Encounter [facility] Imaging [place] [facility] [address] [place] [phone] History of nephrolithiasis Discharge Disposition: Home or Self Care 05/13/2024 Travel from Last 3 Months Immunizations Name Administration Dates Next Due Influenza, High Dose Seasonal, Preservative Free 05/12/2018 Influenza, High-dose, Quadrivalent 07/30/2021 Influenza, Unspecified 05/18/2019 Influenza, injectable, quadrivalent 05/20/2019 Influenza, injectable, quadrivalent, preservativ e free 04/28/2020 Influenza, seasonal, injectable 06/09/2016,06/08 Influenza, trivalent, adjuvanted 05/18/2019 Pneumococcal Conjugate PCV 13 06/29/2018 Pneumococcal Polysaccharide PPV23 07/25/2019 Family History Medical History Relation Name Comments Coronary artery disease Father Diabetes Father Hypertension Father Relation Name Status Comments Father Social History Tobacco Use Types Packs/Day Years [...] often do you attend chur ch or temple services? Never 03/06/2023 Do you belong to any clubs o r organizations such as religion groups, unions, fraternal or athletic groups, or [...] Recorded Patient Health Questionnaire-2 Score 0 2024 [facility] [place] of Occupat ional Health - Occupational Stress [...] rent on time? 2 03/06/2023 [facility] Places Lived Last Flowsheet Value Most Recent Result Not on file 03/06/2023 In the last 12 months, was t here a time when you did not have a steady place to sleep or slept in a jail (including now)? 2 03/06/2023 Health Literacy Answer Date Recorded How often do you need to hav e someone help you when you read instructions, pamphlets, or other written material from your doctor or pharmacy? Never 01/31/2024 [facility] Food Security Answer Date Recorded Within the past 12 months, t he food you bought just didn't last and you didn't have money to get more. 3 01/31/2024 Within the past 12 months, y ou worried that your food would run out before you got money to buy more. 3 01/31/2024 [facility] Transportation Needs Answer Date Re corded In the past 12 months, has l ack of reliable transportation kept you from medical appointments, meetings, work or from getting things needed for daily living? No 01/31/2024 [facility] Housing Answer Date Recorded What is your living situation today? I have a [facility] [place] place to live 01/31/[address] you li ve. Do you have problems with any of the following? None of the above 01/31/2024 [facility] Safety Answer Date Recorded How often does [...] scream or curse at you? 1 01/31/2024 [facility] Utilities Answer Date Recorded In the past 12 months has [employer], gas, oil, or water [facility] threatened to shut off services in your home? No 01/31/2024 Sex and Gender Information Value Date Recorded Sex Assigned at Not on file Gender Identity Not on file Sexual Orientation Not on file Last Filed Vital Signs Vital Sign Reading Time Taken Comments Blood Pressure 148/85 03/17/2024 8:40 AM EDT Pulse 82 03/17/2024 8:40 AM EDT Temperature 37 ??C (98.6 ??F) 03/17/2024 8:40 AM EDT Respiratory Rate 16 2024 2:51 PM EDT Oxygen Saturation 99% 03/17/2024 8:40 AM EDT Inhaled Oxygen Concentration - - Weight 87.5 kg (193 lb) 03/17/2024 8:40 AM EDT Height 165.1 cm (5' 5 ) 2024 2:51 PM EDT Body Mass Index 32.12 2024 2:51 PM EDT Plan of Treatment Upcoming Encounters Date Type Department Care Team (Late st Contact Info) Description 09/06/2024 11:00 AM EST Office Visit [facility] Well 65+ at [place] [address] [place] [address] Errol Underwood MD [address] [place] [address] 03/16/2025 11:15 AM EDT Office Visit [facility] [place]rology [place] [address] [place] [address] Samuel Russ MD [address] [place] [address] Health Maintenance Due Date Last Done Comments CT Colonography 1951 Cologuard 1950 FIT 1950 FOBT 1950 Sigmoidoscopy 1951 COVID-19 Vaccine (#1) 1956 DTaP/Tdap/Td Vaccines (1 - Tdap) 1970 Hepatitis A Vaccines (1 of 2 - Risk 2-dose series) 1970 Zoster Vaccines (1 of 2) 1970 Hepatitis B Vaccines (1 of 3 - Risk 3-dose series) 2011 Respiratory Syncytial Virus (RSV) 60 years and older and/or patients (1 - Risk 60-74 years 1-dose series) 2011 Influenza Vaccine (#1) 2024 , 04/28/2020, 05/20/2019, Additional history exists Diabetes Screening 03/02/2025 03/02/2024, 0 01/31/2024, 01/30/2024, Additional history exists Medicare Annual Wellness (AWV) 2025 2024, 03/06/2023, 08/20/2022, Additional history exists Mammogram 10/25/2025 10/26/2023, 04/0 02/2024, 07/07/2022, Additional history exists Lipid Panel 03/02/2029 03/02/2024, 020 11/2023, 08/24/2023, Additional history exists Colonoscopy 08/08/2031 08/08/2021, 07/21, 08/08/2021, Additional history exists Colorectal Cancer Screening 08/08/2031 Pneumococcal Vaccine: 50+ Years Completed 07/25/2019, 06/29/2018 Bone Density Scan Completed 10/08/2022, , 01/06/2020, Additional history exists HPV Vaccines Aged Out No longer eligi ble based on patient's age to complete this topic Meningococcal Vaccine Aged Out No bennie uri eligible based on patient's age to complete this topic Respiratory Syncytial Virus (RSV) <20 months Aged Out No longer eligible based on patient's age to complete this topic Procedures Procedure Name Priority Date/Time Associated Diagnosis Comments US RENAL COMPLETE Routine 05/13/2024 12: 04 PM EDT History of nephrolithiasis COMPREHENSIVE METABOLIC PANEL Routine 03/02/2024 8:00 AM EDT Mixed hyperlipidemia LIPID PANEL Routine 03/02/2024 8:00 AM EDT Mixed hyperlipidemia BI MAMMOGRAM SCREENING BILATERAL Routine 10/26/2023 12:00 AM EDT Encounter for screening mammogram for malignant neoplasm of breast DEXA BONE DENSITY Routine 10/08/2022 12: 53 PM EDT Osteopenia after menopause HM COLONOSCOPY 08/08/2021 4:00 AM EST from Last 3 Months or Most Recently Relevant to Health Maintenance Results * US Renal Complete (05/13/2024 12:04 PM EDT) Anatomical Region Laterality Modality Kidney N/A Ultrasound Impressions 05/16/2024 7:26 PM EDT No sonographically evident calculi. Created by: Vikram Connor Signed by: Vikram Connor Signed on: 05/16/2024 19:26 EDT Location: [place] [address] ?? Narrative 05/16/2024 7:26 PM EDT ??EXAM: [...] Connor Signed on: 05/16/2024 19:26 EDT Location: [place] [address] Samuel Winslow MD IMG US PROCEDUR ES * Lipid Panel (03/02/2024 8:00 AM EDT) Cholesterol, Total 140 <200 mg/dL [facility] HDL Cholesterol 52 > OR = 50 mg/dL [facility] Triglycerides 96 <150 mg/dL [facility] [...] LDL-C. Stuart SS et al. KIMBERLEY. 2013;310(19): 1735-5373 (http://education.MEETiiN/faq/MQR436) Chol/HDL Ratio 2.7 <5.0 (calc) [facility] Non-HDL Cholesterol 88 <130 mg/dL (calc) [facility] Comment: For patients with diabetes plus 1 major ASCVD risk factor, treating to a non-HDL-C goal of <100 mg/dL (LDL-C of <70 mg/dL) is considered a therapeutic option. Blood Venous blood specimen / Unknown 03/02/2024 8:00 AM EDT 03/02/2024 8:01 AM EDT Narrative [facility] - 03/02/2024 11:59 PM EDT FASTING:YES FASTING: YES Errol Underwood MD LAB BLOOD ORDERABLE S [facility] [address] [place] [address] * Comprehensive Metabolic Panel (CMP) (03/02/2024 8:00 AM EDT) Pathologist [facility] Glucose 97 65 - 99 mg/dL [facility] Comment: ? Fasting reference interval BUN 14 7 - 25 mg/dL [facility] Creatinine 0.72 0.60 - 1.00 mg/dL [facility] eGFR 89 > OR = 60 mL/min/1. 73m2 [facility] BUN/Creatinine Ratio SEE NOTE: (calc) [facility] Comment: ?? Not Reported: BUN [...] EDT 03/02/2024 8:01 AM EDT Narrative [facility] - 03/02/2024 11:59 PM EDT FASTING:YES FASTING: YES Errol Underwood MD LAB BLOOD [facility]ABLE [facility] [address] [place] [address] * BI Mammogram Screening Bilateral (10/26/2023 12:00 AM EDT) Anatomical Region Laterality Modality Breast Bilateral Mammography Errol Underwood MD IMG BI PROCEDURES * DEXA Bone Density Axial Skeleton (10/08/2022 [...] MD Signed on: 10/08/2022 13:22 EDT Location: [facility] Errol Underwood MD IMG DXA PROCEDURES * HM COLONOSCOPY (08/08/2021 4:00 AM EST) Anatomical Region Laterality Modality Other Errol Underwood MD HEALTH MAINTENANCE from Last 3 Months or Most Recently Relevant to Health Maintenance Advance Directives * Full Code (Latest Code Status on File) Date Activated Date Inactivated Comments 01/30/2024 10:20 PM 01/31/2024 3:41 PM Care Teams Fabrics And Material Cutter Relationship Specialty Start Date End Date Errol Underwood MD PCP - General Family Medicine 02/05/22 Errol Underwood MD [address] [place] [address] PCP - W65+ ACO REACH Attributed Provider 01/18/24 Errol Underwood MD [address] [place] [address] W65+ Responsible Provider Family Medicine 05/20/24
--- OUTSIDE RECORDS SUMMARY | 2024-07-17 10:28 | XMS_ITS | Encounter Summary ---
Author Organization [facility] Address [address] [place] [address] Care Team Providers Care Mail List Librarian Name Role Phone Errol Underwood MD Primary Care Provider Errol Underwood MD Unavailable Source Comments Please be aware that You and/or your organization are solely responsible for the use, security, privacy, and any decisions made with any information you receive from [facility] Reason for Visit * Reason Comments Medicare Annual Wellness Visit Subsequen t Lab follow up . No concerns or new issues . Patient want to talk about atenolol, her BP is been low . Encounter Details Date Type Department Care Team (Late Contact Info) Description 2024 4:00 PM EDT Office Visit [facility] Well 65+ at [place] [address] [place] [address] Errol Underwood MD [address] [place] [address] Medicare annual wellness visit, subsequent [...] How often do you attend chur or yazidi services? Never 03/06/2023 Do you belong to any clubs o r organizations such as evangelical groups, unions, fraternal or athletic groups, or [...] Recorded Patient Health Questionnaire-2 Score 0 2024 [facility] [place] [facility] - Occupational Stress [...] rent on time? 2 03/06/2023 [facility] Places Lived Last Flowsheet Value Most Recent Result Not on file 03/06/2023 In the last 12 months, was t here a time when you did not have a steady place to sleep or slept in a residential (including now)? 2 03/06/2023 Health Literacy Answer Date Recorded How often do you need to hav e someone help you when you read instructions, pamphlets, or other written material from your doctor or pharmacy? Never 01/31/2024 [facility] Food Security Answer Date Recorded Within the past 12 months, t he food you bought just didn't last and you didn't have money to get more. 3 01/31/2024 Within the past 12 months, y ou worried that your food would run out before you got money to buy more. 3 01/31/2024 [facility] Transportation Needs Answer Date Re corded In the past 12 months, has l ack of reliable transportation kept you from medical appointments, meetings, work or from getting things needed for daily living? No 01/31/2024 [facility] Housing Answer Date Recorded What is your living situation today? I have a [facility] place to live 01/31/[address] you li ve. Do you have problems with any of the following? None of the above 01/31/2024 [facility] Safety Answer Date Recorded How often does [...] scream or curse at you? 1 01/31/2024 [facility] Utilities Answer Date Recorded In the past 12 months has th e [employer], gas, oil, or water company threatened to [...] an advance directive, living will, power of title searcher, or health care document that contains your [...] many times: No Value exists for the BAK[employer] MEMBER: EPIC#[id number] STEADI Score: 0 ADDITIONAL HEALTH QUESTIONS: Are [...] Office Visit [facility] Well 65+ at [place] [address] [place] [address] Errol Underwood MD [address] [place], [place] [id number] 03/16/2025 11:15 AM EDT Office Visit [facility] [place] [address] [place] [address] Samuel Winslow MD [address] [place] [address] Scheduled Orders Name Type Priority [...] documented as of this encounter Care Teams Mail List Librarian Relationship Specialty Start Date End Date Errol Underwood MD PCP - General Family Medicine 02/05/22 Errol Underwood MD [address] [place] [id number] PCP - W65+ ACO REACH Attributed Provider 01/18/24 documented as of this encounter
--- OUTSIDE RECORDS SUMMARY | 2024-07-17 10:28 | XMS_ITS | Encounter Summary ---
Author Organization [facility] Address [address] [place] [address] Care Team Providers Care Machine Iii Coremaker Name Role Phone Errol Underwood MD Primary Care Provider Errol Underwood MD Unavailable [phone] Source Comments Please be aware that You and/or your organization are solely responsible for the use, security, privacy, and any decisions made with any information you receive from [email or web address] Reason for Referral * Imaging (Routine) - Closed Specialty Diagnoses / Procedures Referred By Ryley pantoja Referred To Contact Radiology Diagnoses Ureteral calculus, left Procedures XR Abdomen 1 View Samuel Winslow MD [address] [place] [address] Referral ID Status Reason Start Date Expiration Date Visits Re quested Visits Authorized [id number] Closed 02/25/2024 02/24/2025 1 1 Reason for Visit * Reason Comments Consult Kidney stones * Consultation (Routine) - Closed Specialty Diagnoses / Procedures Referred By Contdarcy pantoja Referred To Contact Urology Diagnoses Kidney stone on left side Errol Underwood MD [address] [place] [address] Samuel Winslow MD [address] [place] [address] Referral ID Status Reason Start Date Expiration Date V isits Requested Visits Authorized [id number] Closed Specialty Services Required 01/29/2024 01/28/2025 1 1 Encounter Details Date Type Department Care Team (Late st Contact Info) Description 02/25/2024 1:30 PM EDT Consult [facility] [place] [address] [place] [address] Samuel Winslow MD [address] [place] [address] Ureteral calculus, left (Primary Dx); [...] often do you attend chur ch or jainism services? Never 03/06/2023 Do you belong to any clubs o r organizations such as yazidi groups, unions, fraternal or athletic groups, or [...] Recorded Patient Health Questionnaire-2 Score 0 03/06/2023 [facility] - Occupational Stress [...] in a retirement (including now)? 2 03/06/2023 Health Literacy Answer Date Recorded How often do you need to hav e someone help you when you read instructions, pamphlets, or other written material from your doctor or pharmacy? Never 01/31/2024 [facility] Food Security Answer Date Recorded Within the past 12 months, t he food you bought just didn't last and you didn't have money to get more. 3 01/31/2024 Within the past 12 months, y ou worried that your food would run out before you got money to buy more. 3 01/31/2024 [facility] Transportation Needs Answer Date Re corded In the past 12 months, has l ack of reliable transportation kept you from medical appointments, meetings, work or from getting things needed for daily living? No 01/31/2024 [facility] Housing Answer Date Recorded What is your living situation today? I have a [facility] place to live 01/31/[address] you li ve. Do you have problems with any of the following? None of the above 01/31/2024 [facility] Safety Answer Date Recorded How [...] scream or curse at you? 1 01/31/2024 [facility] Utilities Answer Date Recorded In [...] AGE: 8 1950 / 73 y.o. CSN: [id number] Date of Admission: Chief Complaint Patient presents [...] oz) Height: 1.651 m (5' 5 ) @[id number]@ Body mass index is 32.3 kg/m??. Physical [...] Description 09/06/2024 11:00 AM EST Office Visit [facility] Well 65+ at [place] [address] [place] [address] Errol Underwood MD [address] [place] [address] 03/16/2025 11:15 AM EDT Office Visit [facility] [place] [address] [place] [address] Samuel Winslow MD [address] [place] [address] documented as of this encounter Results * XR Abdomen 1 View (2024 8:29 AM EDT) Anatomical Region Laterality Modality Abdomen N/A Digital Radiogra phy 03/12/2024 1:02 PM EDT Impressions 03/12/2024 1:02 PM EDT Multiple phleboliths are seen within the pelvis, though one of these could represent a bladder stone given the previous findings. Dictated on: [id number] Electronically Signed By: Dr. Leonid Cr M.D. [...] stone given the previous findings. Dictated on: [id number] Electronically Signed By: Dr. Leonid Cr M.D. 03/12/2024 13:02:33 EDT Location: [facility] Samuel Winslow MD IMG XR PROCEDUR [...] documented as of this encounter Care Teams Machine Iii Coremaker Relationship Specialty Start Date End Date Errol Underwood MD PCP - General Family Medicine 02/05/22 Errol Underwood MD [address] [place] [address] PCP - W65+ ACO REACH Attributed Provider 01/18/24 documented as of this encounter
--- OUTSIDE RECORDS SUMMARY | 2024-07-17 10:28 | XMS_ITS | Encounter Summary ---
Author Organization [facility] Address [address] [place] [address] Care Team Providers Care Tow Operator Name Role Phone Errol Underwood MD Primary Care Provider Errol Underwood MD Unavailable [phone] Source Comments Please be aware that You and/or your organization are solely responsible for the use, security, privacy, and any decisions made with any information you receive from [email or web address] Reason for Visit * Reason Comments Flank Pain Left flank pain radi ating to the left side of abdomen since this morning. No n/v/d or urinary issues Encounter Details Date Type Department Care Team (Late st Contact Info) Description 01/17/2024 5:57 PM EDT - 01/17/2024 8:42 PM EDT Emergency [facility] [address] [place] [address] Elidia Campos DO Emergency Department [address] [place] [address] Calculus of distal left ureter (Primary Dx) Discharge Disposition: Home or Self Care Social [...] How often do you attend chur or cheondoism services? Never 03/06/2023 Do you belong to [...] Recorded Patient Health Questionnaire-2 Score 0 03/06/2023 [facility] ional [facility] - Occupational Stress [...] rent on time? 2 03/06/2023 [facility] Places Lived Last Flowsheet Value Most Recent Result Not on file 03/06/2023 In the last 12 months, was t here a time when you did not have a steady place to sleep or slept in a mcc (including now)? 2 03/06/2023 Sex and Gender Information Value Date Recorded Sex Assigned at Not on file Gender Identity Not on file Sexual Orientation Not on file documented as of this encounter Last Filed Vital Signs Vital Sign Reading Time Taken Comments Blood Pressure 148/92 01/17/2024 8:12 PM EDT Pulse 70 01/17/2024 8:12 PM EDT Temperature 36.6 ??C (97.9 ??F) 01/17/2024 6:02 PM ED T Respiratory Rate 18 01/17/2024 8:12 PM EDT Oxygen Saturation 98% 01/17/2024 8:12 PM EDT Inhaled Oxygen Concentration - - Weight 89.1 kg (196 lb 6.9 oz) 01/17/2024 6:02 P M EDT Height 167.6 cm (5' 6 ) 01/17/2024 6:02 PM EDT Body Mass Index 31.7 01/17/2024 6:02 PM EDT documented in this encounter Medications at Time of Discharge Medication Sig Dispensed Refills Start Date End Date aspirin (aspirin) 81 MG EC tablet Patient stated, Yes, its chewable. atorvastatin (Lipitor) 20 MG tabletIndications:Mixed hyperlipidemia Take 1 tablet (20 mg total) by mouth 1 (one) time each day. 90 tablet 3 08/31/2023 08/30/2024 Calcium Carbonate-Vitamin D 600-200 MG-UNIT capsule Take 1 capsule every day by oral route. lansoprazole (Prevacid) [address] capsuleIndications:Gastr oesophageal reflux disease with esophagitis, unspecified whether hemorrhage TAKE 1 CAPSULE BY MOUTH EVERY DAY BEFORE A MEAL 90 capsule 3 08/31/2023 ALPRAZolam (Xanax) 0.5 MG tabletIndications:Anxiet y Take 1 tablet (0.5 mg total) by mouth at night if needed for anxiety. 30 tablet 1 11/24/2023 2024 atenolol (Tenormin) 50 MG tabletIndications:Hypert ension, essential Take 1 tablet (50 mg total) by mouth 1 (one) time each day. 90 tablet 3 08/31/2023 2024 cephalexin (Keflex) 500 MG capsule Take 1 capsule (500 mg total) by mouth 4 (four) times a day for 7 days. 28 capsule 01/17/2024 01/31/2024 HYDROcodone-acetaminophe n ([place] Bois) 5-325 MG tablet Take 1 tablet by mouth every 6 (six) hours if needed for severe pain (for Acute Pain). 12 tablet 01/17/2024 01/31/2024 ibuprofen 600 MG tablet Take 1 tablet (600 mg total) by mouth every 6 (six) hours. 28 tablet 01/17/2024 01/31/2024 meclizine (Antivert) 25 MG tablet TAKE 1 TABLET BY MOUTH EVERY 6 HOURS NEEDED FOR DIZZINESS FOR 5 DAYS 02/09/2023 01/18/2024 ondansetron ODT (Zofran-ODT) 4 MG disintegrating tabletIndications:Nausea and Vomiting Take 1 tablet (4 mg total) by mouth every 8 (eight) hours if needed for nausea or vomiting. 20 tablet 01/17/2024 01/31/2024 scopolamine (Transderm-Scop) 1 MG/3DAYS patch 72 hourIndications:Sea sickness, sequela Place 1 patch (1 mg total) on the skin every 3rd (third) day. 4 patch 1 03/06/2023 01/31/2024 tamsulosin (Flomax) 0.4 MG capsule Take 1 capsule (0.4 mg total) by mouth 1 (one) time each day. 30 capsule 01/17/2024 01/29/2024 documented as of this encounter ED Notes * Pepper Willoughby RN - 01/17/2024 6:04 PM EDT Explained the risks of your condition worsening and the benefits of staying to complete treatment is important to your care. Please let a nurse know if you decide to leave prior to completed treatment. * Elidia Campos, - 01/17/2024 5:58 PM EDT Images from the original note were not included. EMERGENCY MEDICINE NAME: Claudia Desai /AGE: 8 1950 / 73 y.o. CSN: [id number] CHIEF COMPLAINT Chief Complaint Patient presents with Flank Pain Left flank pain radiating to the left side of abdomen since this morning. No n/v/d or urinary issues HISTORY OF PRESENT ILLNESS 73 y.o. female presents with lower quadrant and left flank pain since early this morning. Patient reports she had similar episode of pain yesterday but the pain significantly improved and had no recurrent issues overnight. She did have several episodes loose stool yesterday but does not been recurrent today. She denies any fevers or chills. Denies any vomiting but does endorse nausea as the pain has intensified. States the pain is currently constant but occasionally does come and go throughout the day and is improved when she ambulates. She denies any changes with food, dysuria or hematuria. She does have prior history of diverticulitis many years ago. Denies any history of ureteral stones.Takes medication for blood pressure daily, denies any other medical problems REVIEW OF SYSTEMS Review of Systems Constitutional: Negative for chills and fever. HENT: Negative for sore throat. Respiratory: Negative for cough. Cardiovascular: Negative for chest pain. Gastrointestinal: Positive for abdominal pain, diarrhea and nausea. Genitourinary: Positive for flank pain (left). Negative for difficulty urinating, dysuria, enuresisand frequency. Skin: Negative for rash. Neurological: Negative for headaches. PAST HISTORY Past Medical History: Diagnosis Date GERD (gastroesophageal reflux disease) History of atrial fibrillation Hyperlipidemia Hypertension Past Surgical History: Procedure Laterality Date CYSTOSCOPY 10/15/2018 DILATION AND CURETTAGE OF UTERUS 12/03/2015 TONSILLECTOMY PEDS Alcohol Use: Not At Risk (03/06/2023) AUDIT-C Frequency of Alcohol Consumption: Never Average Number of Drinks: Patient does not drink Frequency of Binge Drinking: Never Tobacco Use: Low Risk (08/31/2023) Patient History Smoking Tobacco Use: Never Smokeless Tobacco Use: Never Passive Exposure: Not on file Social History Substance and Sexual Activity Drug Use Never Additional pertinent medical/family/surgical/social history: Patient and/or respected republican denies to me any contributory medical, surgical, or family history other than as described in the HPI or elsewhere in the chart. Patient denies any alcohol or drug use other than as described elsewhere in the chart. PHYSICAL EXAMINATION Vitals: 01/17/24 1802 01/17/242011 BP: (!) 180/86 (!) 148/92 BP Location: Right arm Right arm Patient Position: Sitting Sitting Pulse: 78 70 Resp: 18 18 Temp: 36.6 ??C (97.9 ??F) TempSrc: Oral SpO2: 98% 98% Weight: 89.1 kg (196 lb 6.9 oz) Height: 1.676 m (5' 6 ) Physical Exam Vitals and nursing note reviewed. Constitutional: General: She is not in acute distress. HENT: Head: Normocephalic. Right Ear: External ear normal. Left Ear: External ear normal. Nose: Nose normal. Mouth/Throat: Mouth: Mucous membranes are moist. Eyes: General: Lids are normal. Pupils: Pupils are equal. Cardiovascular: Rate and Rhythm: Normal rate and regular rhythm. Pulmonary: Effort: Pulmonary effort is normal. No respiratory distress. Abdominal: General: Bowel sounds are increased. Palpations: Abdomen is soft. Tenderness: There is abdominal tenderness in the periumbilical area and left lower quadrant. There is no guarding or rebound. Musculoskeletal: General: No deformity. Cervical back: Normal range of motion. Skin: General: Skin is warm and dry. Neurological: General: No focal deficit present. Mental Status: She is alert. Mental status is at baseline. Psychiatric: Behavior: Behavior is cooperative. Orders Placed This Encounter Procedures CT Abdomen Pelvis W IV Contrast CBC Auto Diff, Reflex Manual Diff if Indicated Comprehensive metabolic panel Urinalysis with reflex microscopic and reflex culture Lipase Microscopic, urine ECG 12 lead ED Medication Administration from 01/17/2024 1754 to 01/17/20242023 Date/Time Order Dose Route Action Action by 01/17/2024 182 EDT morphine injection 4 mg 4 mg Intravenous Given Worthoff, S 01/17/20241820 EDT ondansetron (Zofran) injection 4 mg 4 mg Intravenous Given Worthoff, S 01/17/20241820 EDT sodium chloride 0.9 % bolus 1,000 mL 1,000 mL Intravenous New Bag Worthoff, S 01/17/2024 191 EDT iopamidol (Isovue-370) 76 % solution 80 mL 80 mL Intravenous Given Launer, B 01/17/20241947 EDT sodium chloride 0.9 % bolus 1,000 mL 0 mL Intravenous Stopped Stone, D 01/17/20241952 EDT acetaminophen (Ofirmev) injection 1,000 mg 1,000 mg Intravenous New Bag Stone, D 01/17/20241952 EDT ketorolac (Toradol) injection 15 mg 15 mg Intravenous Given Stone, D 01/17/20242008 EDT acetaminophen (Ofirmev) injection 1,000 mg 0 mg Intravenous Stopped Stone, D Labs Reviewed CBC W/AUTO DIFF, REFLEX MANUAL DIFF IF INDICATED - Abnormal Result Value WBC 10.07 RBC 4.64 Hemoglobin 13.7 Hematocrit 41.0 MCV 88.4 MCH 29.5 MCHC 33.4 Platelet Count 331 MPV 9.2 Neutrophils % 74.2 Lymphocytes % 15.3 Monocytes % 8.9 Eosinophils % 0.6 Basophils % 0.6 Neutrophils Absolute 7.47 (*) Lymphocytes Absolute 1.54 Monocytes Absolute 0.90 Eosinophils Absolute 0.06 Basophil Absolute 0.06 COMPREHENSIVE METABOLIC PANEL - Abnormal Sodium 135 (*) Potassium 4.1 Chloride 99 Carbon Dioxide 25.0 Anion Gap 11 BUN 16.0 Creatinine 0.86 BUN/Creatinine Ratio 18.6 Glucose 128 (*) Calcium 9.1 AST 17 ALT 11 Alkaline Phosphatase 106 (*) Protein, Total 7.3 Albumin 4.10 Globulin 3.2 A/G Ratio 1.3 Bilirubin, Total <0.60 eGFR 71.9 URINALYSIS WITH REFLEX MICROSCOPIC AND REFLEX CULTURE - Abnormal Color, Urine Yellow Clarity, Urine Clear Leukocyte Esterase, Urine Trace (*) Nitrite, Urine Negative Protein, Qual, Urine Negative pH, Urine 5.5 Blood, Urine Trace (*) Specific [place], Urine 1.010 Ketones, Urine Negative Bilirubin, Urine Negative Glucose, Qual, Urine Negative BKR MICROSCOPIC, URINE (CAT) - Abnormal RBC, Urine 0-2 WBC, Urine 0-5 Squamous Epithelial Cells, Urine Few (*) Bacteria, Urine Negative Yeast, Urine Occasional (*) LIPASE - Normal Lipase 31 CT Abdomen Pelvis W IV Contrast Final Result 1. Obstructing 5 mm calculus at the left UVJ with mild left hydroureteronephrosis and asymmetric left perinephric edema. 2. Colonic diverticulosis without evidence of acute diverticulitis. 3. Hepatic steatosis. 4. Moderate hiatal hernia. 5. Incidental 6 mm left lower lobe nodule. Given the history of malignancy, comparison any prior CTis recommended to assess for stability. If none are available, recommend follow-up chest CT in 3 months. Created by: Maxine Villarreal MD Signed by: Maxine Villarreal MD Signed on: 01/17/2024 19:46 EDT Location: [place] [address] Medications cefTRIAXone (Rocephin) injection 1 g (has no administration in time range) sodium chloride 0.9 % bolus 1,000 mL (0 mL Intravenous Stopped 01/17/241947) ondansetron (Zofran) injection 4 mg (4 mg Intravenous Given 01/17/241820) morphine injection 4 mg (4 mg Intravenous Given 01/17/241820) iopamidol (Isovue-370) 76 % solution 80 mL (80 mL Intravenous Given 01/17/241915) acetaminophen (Ofirmev) injection 1,000 mg (0 mg Intravenous Stopped 01/17/242008) ketorolac (Toradol) injection 15 mg (15 mg Intravenous Given 01/17/241952) Procedures ED Course as of 01/17/242023 Wilber Jan 17, 2024 1828 ECG 12 lead No previous ECG available for comparison Sinus rhythm, rate of 70. Normal axis, normal intervals. T-wave inversions in several noncontiguous leads. No STEMI Prelim by ELIDIA CAMPOS on 01-17-2024 18:28:09 EDT [SO] 2001 CT Abdomen Pelvis W IV Contrast KIDNEYS: 5 mm calculus at the left UVJ with mild left hydroureteronephrosis and asymmetric left perinephric edema. Several bilateral cysts measuring up to 7.4 cm on the right. This includes parapelvic cysts on the right. [SO] 2018 Patient feeling significantly improved after Toradol in the emergency department. No evidence of UTI on urinalysis. Will send for culture given trace blood and leuk esterase. Patient agreeable plan of care for follow-up with Urology and discharged in stable condition [SO] ED Course User Index [SO] Elidia Campos DO Diagnosis as of 01/17/242023 Calculus of distal left ureter MEDICAL DECISION MAKING Medical Decision Making 73-year-old female presents emergency department for left lower quadrant and flank pain since yesterday. Pain comes and goes in waves. Does have prior history of diverticulitis. CT scan shows distal 5 mm obstructing stone at the UVJ. Patient reported complete resolution of pain after morphine and Toradol 1 time dosing in the emergency department. She was stable for outpatient management and discharge. Urine shows no evidence of infection but CT scan does show concern for perinephric stranding around the left kidney therefore patient was given 1 dose of antibiotics in the emergency department as well as short course of antibiotics for prophylaxis to prevent UTI from developing in the settingof stone. She was counseled to return to the emergency department for any signs of fever, nausea orinability to keep medications down or intractable pain. She was discharged in stable condition and reliable for follow-up with Urology Problems Addressed: Calculus of distal left ureter: complicated acute illness or injury Amount and/or Complexity of Data Reviewed Labs: ordered. Decision-making details documented in ED Course. Radiology: ordered and independent interpretation performed. Decision-making details documented in ED Course. ECG/medicine tests: ordered and independent interpretation performed. Decision- making details documented in ED Course. Risk Prescription drug management. Parenteral controlled substances. Decision regarding hospitalization. DISPOSITION Discharge Final Diagnosis Diagnosis Comment Added By Time Added Calculus of distal left ureter [N20.1] lEidia Campos DO 01/17/2024 8:20 PM Rogelio Montgomery MD [address] [place] [id number] Schedule an appointment as soon as possible for a visit in 1 week For followup for ER diagnosis [facility] [address] [facility] [address] Go to If symptoms worsen ED Prescriptions Medication Sig Dispense Start Date End Date Auth. Provider cephalexin (Keflex) 500 MG capsule Take 1 capsule (500 mg total) by mouth 4 (four) times a day for 7 days. 28 capsule 01/17/2024 01/24/2024 Elidia Campos DO tamsulosin (Flomax) 0.4 MG capsule Take 1 capsule (0.4 mg total) by mouth 1 (one) time each day. 30capsule 01/17/2024 -- Elidia Campos DO ibuprofen 600 MG tablet Take 1 tablet (600 mg total) by mouth every 6 (six) hours. 28 tablet 01/17/2024 -- Elidia Campos DO ondansetron ODT (Zofran-ODT) 4 MG disintegrating tablet Take 1 tablet (4 mg total) by mouth every 8(eight) hours if needed for nausea or vomiting. 20 tablet 01/17/2024 -- Elidia Campos DO HYDROcodone-acetaminophen ([place]) 5-325 MG tablet Take 1 tablet by mouth every 6 (six) hours if needed for severe pain (for Acute Pain). 12 tablet 01/17/2024 -- Elidia Campos DO 8:24 PM Discharge I discussed with the patient and/or respected republican the clinical impression and all diagnostic studies that were completed during their Emergency Department visit in layman's terms. They were advisedon the below medications they would be discharged home with, including any medication safety concerns or monitoring needs. I discussed with them that they should follow up with appropriate specialistand their primary care provider as soon as possible as indicated below. In addition to bedside discussion of diagnosis-specific return precautions, if unable to secure timely follow-up with persistent/worsening symptoms, they should report back to an emergency department. They expressed understanding and had all questions answered at the time of discharge. Verbal and written discharge instructions provided patient at time of discharge. Disclaimer: The above dictation has been done using a voice recognition software. Possibility of some inadvertent housing counselor mistakes sometimes occur. If this becomes important for clarification, please notify me for correction. Thank you. Elidia Campos DO 01/17/242024 documented in this encounter Miscellaneous Notes * Patient Discharge Packet - DARCY, CLINICIAN - 01/17/2024 8:22 PM EDT Images from the original note were not included. Patient Education Table of Contents Kidney Stones To view videos and all your education online visit, [email or web address] or scan this QR code with your smartphone. Access to this content will in one year. Kidney Stones Kidney stones are rock-like masses that form inside of the kidneys. Kidneys are organs that make pee (urine). A kidney stone may move into other parts of the urinary tract, including: The tubes that connect the kidneys to the bladder (ureters). The bladder. The tube that carries urine out of the body (urethra). Kidney stones can cause very bad pain and can block the flow of pee. The stone usually leaves your body through your pee. A doctor may need to take out the stone. What are the causes? Kidney stones may be caused by: Too much calcium in the body. This may be caused by too much parathyroid hormone in the blood. Uric acid crystals in the bladder. The body makes uric acid when you eat certain foods. Narrowing of one or both of the ureters. A kidney blockage that you were born with. Past surgery on the kidney or the ureters. What increases the risk? You are more likely to develop this condition if: You have had a kidney stone in the past. Other people in your family have had kidney stones. You do not drink enough water. You eat a diet that is high in protein, salt (sodium), or sugar. You are very overweight (obese). What are the signs or symptoms? Symptoms of a kidney stone may include: Pain in the side of the belly, right below the ribs. Pain usually spreads to the groin. Needing to pee often or right away. Pain when peeing. Blood in your pee. Feeling like you may vomit (nauseous). Vomiting. Fever and chills. How is this treated? Treatment depends on the size, location, and makeup of the kidney stones. The stones will often pass out of the body when you pee. You may need to: Drink more fluid to help pass the stone. ? In some cases, you may be given fluids through an IV tube at the hospital. Take medicine for pain. Change your diet to help keep kidney stones from coming back. Sometimes, you may need: A procedure to break up kidney stones using a beam of light (laser) or shock waves. Surgery to remove the kidney stones. Follow these instructions at home: Medicines Take [id number] and prescription medicines only as told by your doctor. Ask your doctor if the medicine prescribed to you requires you to avoid driving or using machinery. Eating and drinking Drink enough fluid to keep your pee pale yellow. ? You may be told to drink at least 8?10 glasses of water each day. This will help you pass the stone. If told by your doctor, change your diet. You may be told to: ? Limit how much salt you eat. ? Eat more fruits and vegetables. ? Limit how much meat, poultry, fish, and eggs you eat. Follow instructions from your doctor about what you may eat and drink. General instructions Collect pee samples as told by your doctor. You may need to collect a pee sample: ? 24 hours after a stone comes out. ? 8?12 weeks after a stone comes out, and every 6?12 months after that. Strain your pee every time you pee. Use the strainer that your doctor recommends. Do not throw out the stone. Keep it so that it can be tested by your doctor. Keep all follow-up visits. You may need X-rays and ultrasounds to make sure the stone has come out. How is this prevented? To prevent another kidney stone: Drink enough fluid to keep your pee pale yellow. This is the best way to prevent kidney stones. Eat healthy foods. Avoid certain foods as told by your doctor. You may be told to eat less protein. Stay at a healthy weight. Where to find more information National Kidney Foundation (NKF): kidney.org [facility] (UCF): urologyhealth.org Contact a doctor if: You have pain that gets worse or does not get better with medicine. Get help right away if: You have a fever or chills. You get very bad pain. You get new pain in your belly. You faint. You cannot pee. This information is not intended to replace advice given to you by your health care provider. Make sure you discuss any questions you have with your health care provider. Document Released: 2008-12-22 Document Updated: 2023-02-27 Document Reviewed: 2023-02-27 Elsevier Patient Education ? 2023 [employer]. documented in this encounter Plan of Treatment Inpatient Care Plan* Active Problem: Adult Inpatient Plan of Care Goal-related InterventionsGoal-related InterventionsGoal-related Interventions Goal Priority Disciplines Outcome Goal Variance s Plan of Care Review Nurse, Interdisciplinary Patient-Specific Goal (Individualized) Nurse, Interdisciplinary Absence of Hospital-Acquired Illness or Injury Identify and Manage Fall RiskPrevent Skin InjuryPrevent and Manage VTE (Venous Thromboembolism) RiskPrevent Infection Nurse, Interdisciplinary Optimal Comfort and Wellbeing Monitor Pain and Promote ComfortProvide Person-Centered Care Nurse, Interdisciplinary Readiness for Transition of Care Mutually Develop Transition Plan Nurse, Interdisciplinary Upcoming Encounters Date Type Department Care Team (Late st Contact Info) Description 09/06/2024 11:00 AM EST Office Visit [facility] [place] [address] [place] [id number] Errol Underwood MD [address] [place], [place] [id number] 03/16/2025 11:15 AM EDT Office Visit [facility] [place] [address] [facility] [address] [place] [address] Samuel Winslow MD [address] [facility] [address] [place] [address] Pending Results Name Type Priority Associated Diagnoses Date /Time ECG 12 lead ECG STAT 01/17/2024 6: 19 PM EDT documented as of this encounter Procedures Procedure Name Priority Date/Time Associated Diagnosis Comments BKR MICROSCOPIC, URINE (CAT) STAT 01/17/2024 7:48 PM EDT URINALYSIS WITH REFLEX MICROSCOPIC AND REFLEX CULTURE STAT 01/17/2024 7:[address] ABDOMEN PELVIS W IV CONTRAST ED Priority 01/17/2024 7:22 PM EDT CBC W/AUTO DIFF, REFLEX MANUAL DIFF IF INDICATED STAT 01/17/2024 6:25 PM EDT LIPASE STAT 01/17/2024 6:25 PM EDT COMPREHENSIVE METABOLIC PANEL STAT 01/17/2024 6:25 PM EDT ECG 12-LEAD STAT 01/17/2024 6:19 PM EDT documented in this encounter Results * (ABNORMAL) Microscopic, urine (01/17/2024 7:48 PM EDT) RBC, Urine 0-2 0 - 2 /HPF 01/17/2024 8:12 PM EDT [facility] WBC, Urine 0-5 0 - 5 /HPF 01/17/2024 8:12 PM EDT [facility] Squamous Epithelial Cells, Urine Few(A) None /HPF 01/17/2024 8:12 PM EDT [facility] Bacteria, Urine Negative Negative /HPF 01/17/2024 8:12 PM EDT [facility] Yeast, Urine Occasional( A) None Seen /HPF 01/17/2024 8:12 PM EDT [facility] Urine Urine specimen obtained by clean catch procedure / Unknown Non-blood Collection / Unknown 01/17/2024 7:48 PM EDT 01/17/2024 7:50 PM EDT Elidia Campos DO LAB URINE ORDERA BLES [facility] [address] [place] [address], [place] [phone] * (ABNORMAL) Urinalysis with reflex microscopic and reflex culture (01/17/2024 7:48 PM EDT) Color, Urine Yellow Dark Yellow, Straw, Yellow 01/17/2024 8:[address] [facility] Clarity, Urine Clear Clear 01/17/2024 8:08 PM EDT [facility] Leukocyte Esterase, Urine Trace(A) Negative, Color Interference 01/17/2024 8:08 PM EDT [facility] Nitrite, Urine Negative Negative, Color Interference 01/17/2024 8:08 PM EDT [facility] Protein, Qual, Urine Negative Negative, Trace, Color Interference 01/17/2024 8:08 PM EDT [facility] pH, Urine 5.5 5.0 - 8.0 01/17/2024 8:08 PM EDT [facility] Blood, Urine Trace(A) Negative, Color Interference 01/17/2024 8:08 PM EDT [facility] Specific [place], Urine 1.010 1.010 - 1.025 01/17/2024 8:08 PM EDT [facility] Ketones, Urine Negative Negative 01/17/2024 8:08 PM EDT [facility] Bilirubin, Urine Negative Negative, Color Interference 01/17/2024 8:08 PM EDT [facility] Glucose, Qual, Urine Negative Negative, Trace, Color Interference 01/17/2024 8:08 PM EDT [facility] Urine Urine specimen obtained by clean catch procedure / Unknown Non-blood Collection / Unknown 01/17/2024 7:48 PM EDT 01/17/2024 7:50 PM EDT Elidia Campos DO LAB URINE ORDERA BLES [facility] [address] [place] [address], [place] [phone] * CT Abdomen Pelvis W IV Contrast (01/17/2024 7:22 PM EDT) Anatomical Region Laterality Modality Body, Pelvis, Abdomen N/A Computed T omography Impressions 01/17/2024 7:46 PM EDT ??1. ??Obstructing 5 mm calculus at the left UVJ with mild left hydroureteronephrosis and asymmetric left perinephric edema. ??2. ??Colonic diverticulosis without evidence of acute diverticulitis. 3. Hepatic steatosis. 4. Moderate hiatal hernia. 5. Incidental 6 mm left lower lobe nodule. Given the history of malignancy, comparison any prior CT is recommended to assess for stability. If none are available, recommend follow-up chest CT in 3 months. Created by: Maxine Villarreal MD Signed by: Maxine Villarreal MD Signed on: 01/17/2024 19:46 EDT Location: [id number] ?? Narrative 01/17/2024 7:46 PM EDT ??EXAM: CT ABDOMEN AND PELVIS WITH IV CONTRAST INDICATION: Left ureteral stone versus diverticulitis. Left flank and abdominal pain x2 days. History of uterine cancer status post radiation and hysterectomy. COMPARISON: None TECHNIQUE: Contiguous axial images were obtained from the lung bases to the pelvic floor following the intravenous administration of 80 mL of Isovue 370. Coronal and sagittal reformations are provided. Up-to-date CT equipment and radiation dose reduction techniques were employed. FINDINGS: LOWER CHEST: Moderate hiatal hernia. Punctate right middle lobe calcified granuloma. Noncalcified 6 mm left lower lobe nodule (series 2, image 21). LIVER: Steatosis. No mass. No intrahepatic biliary dilatation. Portal veins are patent. GALLBLADDER: No wall thickening. No radiopaque stones. COMMON BILE DUCT: Normal caliber. No radiopaque stones. ?? SPLEEN: Within normal limits. PANCREAS: No mass. No main duct dilatation. No pancreatic fluid collections. ADRENALS: No masses. KIDNEYS: 5 mm calculus at the left UVJ with mild left hydroureteronephrosis and asymmetric left perinephric edema. Several bilateral cysts measuring up to 7.4 cm on the right. This includes parapelvic cysts on the right. LYMPH NODES: No adenopathy. STOMACH, SMALL BOWEL AND COLON: Colonic diverticulosis without evidence of acute diverticulitis. No evidence of obstruction. APPENDIX: Normal. PERITONEAL CAVITY: No mesenteric stranding or free fluid. No free air. ABDOMINAL AORTA: No aneurysm. Mild atherosclerotic change. PELVIC ORGANS: Status post hysterectomy. No adnexal mass. Unremarkable urinary bladder. SOFT TISSUE: Tiny fat-containing umbilical hernia. OSSEOUS STRUCTURES: No acute fracture or destructive lesion. Procedure Note Maxine Villarreal MD - 01/17/2024 EXAM: CT ABDOMEN AND PELVIS WITH IV CONTRAST INDICATION: Left ureteral stone versus diverticulitis. Left flank andabdominal pain x2 days. History of uterine cancer status post radiationand hysterectomy. COMPARISON: None TECHNIQUE: Contiguous axial images were obtained from the lung bases tothe pelvic floor following the intravenous administration of 80 mL ofIsovue 370. Coronal and sagittal reformations are provided. Up-to-date CTequipment and radiation dose reduction techniques were employed. FINDINGS: LOWER CHEST: Moderate hiatal hernia. Punctate right middle lobe calcifiedgranuloma. Noncalcified 6 mm left lower lobe nodule (series 2, image21). LIVER: Steatosis. No mass. No intrahepatic biliary dilatation. Portalveins are patent. GALLBLADDER: No wall thickening. No radiopaque stones. COMMON BILE DUCT: Normal caliber. No radiopaque stones. SPLEEN: Within normal limits. PANCREAS: No mass. No main duct dilatation. No pancreatic fluidcollections. ADRENALS: No masses. KIDNEYS: 5 mm calculus at the left UVJ with mild lefthydroureteronephrosis and asymmetric left perinephric edema. Severalbilateral cysts measuring up to 7.4 cm on the right. This includesparapelvic cysts on the right. LYMPH NODES: No adenopathy. STOMACH, SMALL BOWEL AND COLON: Colonic diverticulosis without evidence ofacute diverticulitis. No evidence of obstruction. APPENDIX: Normal. PERITONEAL CAVITY: No mesenteric stranding or free fluid. No free air. ABDOMINAL AORTA: No aneurysm. Mild atherosclerotic change. PELVIC ORGANS: Status post hysterectomy. No adnexal mass. Unremarkableurinary bladder. SOFT TISSUE: Tiny fat-containing umbilical hernia. OSSEOUS STRUCTURES: No acute fracture or destructive lesion. IMPRESSION: 1. Obstructing 5 mm calculus at the left UVJ with mild lefthydroureteronephrosis and asymmetric left perinephric edema. 2. Colonic diverticulosis without evidence of acute diverticulitis. 3. Hepatic steatosis. 4. Moderate hiatal hernia. 5. Incidental 6 mm left lower lobe nodule. Given the history ofmalignancy, comparison any prior CT is recommended to assess forstability. If none are available, recommend follow-up chest CT in 3months. Created by: Maxine Villarreal MD Signed by: Maxine Villarreal MD Signed on: 01/17/2024 19:46 EDT Location: [id number] Elidia Wahlkoby DO IMG CT PROCEDURE S * Lipase (01/17/2024 6:25 PM EDT) Lipase 31 13 - 60 U/L [facility] [id number]-2_[id number]_ EUA 01/17/2024 6:46 PM EDT [facility] Blood Venous blood specimen / Unknown Venipuncture / Unknown 01/17/2024 6:25 PM EDT 01/17/2024 6:25 PM EDT Elidia Blanco Adebayo DO LAB BLOOD ORDERA BLES [facility] [address] [place] [address], * (ABNORMAL) Comprehensive metabolic panel (01/17/2024 6:25 PM EDT) Pathologist [facility] Sodium 135(L) 136 - 145 mmol/L [facility] ANTI-SARS- COV-2_RO[facility] E DIAGNOSTIC S_EUA 01/17/2024 6:46 PM EDT [facility] Potassium 4.1 3.5 - 5.1 mmol/L [facility] ANTI-SARS- COV-2_ROCH E DIAGNOSTIC S_EUA 01/17/2024 6:46 PM EDT [facility] Chloride 99 98 - 107 mmol/L [facility]TI-SARS- COV-2_ROCH E DIAGNOSTIC S_EUA 01/17/2024 6:46 PM EDT [facility] Carbon Dioxide 25.0 22.0 - 29.0 mmol/L [facility]TI-S[facility]- COV-2_ROCH E DIAGNOSTIC S_EUA 01/17/2024 6:46 PM EDT [facility] Anion Gap 11 3 - 20 mmol/L [facility] ANTI-SARS- COV-2_ROCH E DIAGNOSTIC S_EUA 01/17/2024 6:46 PM EDT [facility] BUN 16.0 8.0 - 23.0 mg/dL [facility]TI-SARS- COV-2_ROCH E DIAGNOSTIC S_EUA 01/17/2024 6:46 PM EDT [facility] Creatinine 0.86 0.50 - 0.90 mg/dL [facility]TI-S[facility]- COV-2_ROCH E DIAGNOSTIC S_EUA 01/17/2024 6:46 PM EDT [facility] BUN/Creatinine Ratio 18.6 [facility] ANTI-SARS- COV-2_ROCH E DIAGNOSTIC S_EUA 01/17/2024 6:46 PM EDT [facility] Glucose 128(H) 70 - 99 mg/dL [facility]TI-SARS- COV-2_ROCH E DIAGNOSTIC S_EUA 01/17/2024 6:46 PM EDT [facility] Calcium 9.1 8.8 - 10.2 mg/dL [facility] ANTI-SARS- COV-2_ROCH E DIAGNOSTIC S_EUA 01/17/2024 6:46 PM EDT [facility] AST 17 10 - 33 U/L [facility] ANTI-SARS- COV-2_ROCH E DIAGNOSTIC S_EUA 01/17/2024 6:46 PM EDT [facility] ALT 11 10 - 33 U/L [facility] ANTI-SARS- COV-2_ROCH E DIAGNOSTIC S_EUA 01/17/2024 6:46 PM EDT [facility] Alkaline Phosphatase 106(H) 35 - 105 U/L [facility] ANTI-SARS- COV-2_ROCH E DIAGNOSTIC S_EUA 01/17/2024 6:46 PM EDT [facility] Protein, Total 7.3 6.4 - 8.3 g/dL [facility] ANTI-SARS- COV-2_ROCH E DIAGNOSTIC S_EUA 01/17/2024 6:46 PM EDT [facility] Albumin 4.10 3.50 - 5.20 g/dL [facility]TI-SARS- COV-2_ROCH E DIAGNOSTIC S_EUA 01/17/2024 6:46 PM EDT [facility] Globulin 3.2 g/dL [facility] ANTI-SARS- COV-2_ROCH E DIAGNOSTIC S_EUA 01/17/2024 6:46 PM EDT [facility] A/G Ratio 1.3 [facility] ANTI-SARS- COV-2_ROCH E DIAGNOSTIC S_EUA 01/17/2024 6:46 PM EDT [facility] Bilirubin, Total <0.60 <=1.00 mg/dL [facility]TI-SARS- COV-2_ROCH E DIAGNOSTIC S_EUA 01/17/2024 6:46 PM EDT [facility] ER eGFR 71.9 mL/min/{1 .73_m2} 01/17/2024 6:46 PM EDT [facility] Comment: GFR calculated based on CKD-EPI [...] blood specimen / Unknown Venipuncture / Unknown 01/17/2024 6:25 PM EDT 01/17/2024 6:25 PM EDT Elidia Campos DO LAB BLOOD ORDERA BLES [facility] [address] [place] [address], * (ABNORMAL) CBC Auto Diff, Reflex Manual Diff if Indicated (01/17/2024 6:25 PM EDT) WBC 10.07 5.40 - 10.80 10*3/uL 01/17/2024 6:36 PM EDT [facility] RBC 4.64 3.79 - 5.19 10*6/uL 01/17/2024 6:36 PM EDT [facility] Hemoglobin 13.7 11.2 - 15.7 g/dL 01/17/2024 6:36 PM EDT [facility] Hematocrit 41.0 34.1 - 44.9 % 01/17/2024 6:36 PM EDT [facility] MCV 88.4 83.7 - 99.5 fL 01/17/2024 6:36 PM EDT [facility] MCH 29.5 27.6 - 33.1 pg 01/17/2024 6:36 PM EDT [facility] MCHC 33.4 31.3 - 34.9 g/dL 01/17/2024 6:36 PM EDT [facility] Platelet Count 331 126 - 432 10*3/uL 01/17/2024 6:36 PM EDT [facility] MPV 9.2 9.2 - 12.2 fL 01/17/2024 6:36 PM EDT [facility] Neutrophils % 74.2 42.7 - 77.1 % 01/17/2024 6:36 PM EDT [facility] Lymphocytes % 15.3 12.1 - 45.3 % 01/17/2024 6:36 PM EDT [facility] Monocytes % 8.9 4.4 - 12.5 % 01/17/2024 6:36 PM EDT [facility] Eosinophils % 0.6 0.0 - 5.6 % 01/17/2024 6:36 PM EDT [facility] Basophils % 0.6 0.0 - 1.0 % 01/17/2024 6:36 PM EDT [facility] Neutrophils Absolute 7.47(H) 1.40 - 6.80 10*3/uL 01/17/2024 6:36 PM EDT [facility] Lymphocytes Absolute 1.54 0.60 - 3.20 10*3/uL 01/17/2024 6:36 PM EDT [facility] Monocytes Absolute 0.90 0.20 - 0.90 10*3/uL 01/17/2024 6:36 PM EDT [facility] Eosinophils Absolute 0.06 0.00 - 0.60 10*3/uL 01/17/2024 6:36 PM EDT [facility] Basophil Absolute 0.06 0.00 - 0.10 10*3/uL 01/17/2024 6:36 PM EDT [facility] Blood Venous blood specimen / Unknown Venipuncture / Unknown 01/17/2024 6:25 PM EDT 01/17/2024 6:25 PM EDT Elidia Campos DO LAB BLOOD ORDERA BLES Performing Organization Address City/State/[facility] Co de Phone Number [facility] [address] [place] [address], documented in this encounter Visit Diagnoses Diagnosis Calculus of distal left ureter- Primary documented in this encounter Administered Medications Inactive Administered Medications - up to 3 most recent administrations Medication Order MAR Action Action Date Dose Rate Site acetaminophen (Ofirmev) injection 1,000 mg 1,000 mg, Intravenous, at 400 mL/hr, Administer over 15 Minutes, Once, On 01/17/24 at 1950, For 1 dose New Bag 01/17/2024 7:53 PM EDT 1,000 mg 400 mL/hr cefTRIAXone (Rocephin) injection 1 g 1 g, Intravenous, Once, On 01/17/24 at 2024, For 1 dose, For IV push administration reconstitute 1 gm with 10 mL sterile water for injection and give over 3 minutes. Flush line before and after administration. For IM administration inject deep into large muscle; concentration of 250 mg/mL reconstituted with 3.6 mL of appropriate diluent or 350 mg/mL reconstituted with 2.1 mL of appropriate diluent is recommended., Suspected Indication (Select all that apply): Other ? Enter in Comments, Reason for indication? IVP Abx Given 01/17/2024 8:25 PM EDT 1 g iopamidol (Isovue-370) 76 % solution 80 mL 80 mL, Intravenous, Once in imaging, Starting on 01/17/24 at 1822, For 1 dose Given 01/17/2024 7:16 PM EDT 80 mL ketorolac (Toradol) injection 15 mg 15 mg, Intravenous, Once, On 01/17/24 at 1950, For 1 dose Given 01/17/2024 7:53 PM EDT 15 mg morphine injection 4 mg 4 mg, Intravenous, Once, On 01/17/24 at 1810, For 1 dose Given 01/17/2024 6:21 PM EDT 4 mg ondansetron (Zofran) injection 4 mg 4 mg, Intravenous, Once, On 01/17/24 at 1810, For 1 dose, Indications: Nausea Given 01/17/2024 6:21 PM EDT 4 mg sodium chloride 0.9 % bolus 1,000 mL 1,000 mL, Intravenous, at 999 mL/hr, Administer over 1 Hours, Once, On 01/17/24 at 1810, For 1 dose New Bag 01/17/2024 6:21 PM EDT 1,000 mL 999 mL/hr documented in this encounter Active and Recently Administered Medications Times are shown in EDT. Scheduled Medication Order 01/15/2024 01/16/2024 01/17/2024 acetaminophen (Ofirmev) injection 1,000 mg (COMPLETED) 1,000 mg, Intravenous, at 400 mL/hr, Administer over 15 Minutes, Once, On 01/17/24 at 1950, For 1 dose 1952 (New Bag - Prov ider: Ольга Rodriguez, YAZAN)2008 (Stopped - Provider: Ольга Rodriguez RN) cefTRIAXone (Rocephin) injection 1 g (COMPLETED) 1 g, Intravenous, Once, On 01/17/24 at 2024, For 1 dose, For IV push administration reconstitute 1 gm with 10 mL sterile water for injection and give over 3 minutes. Flush line before and after administration. For IM administration inject deep into large muscle; concentration of 250 mg/mL reconstituted with 3.6 mL of appropriate diluent or 350 mg/mL reconstituted with 2.1 mL of appropriate diluent is recommended., Suspected Indication (Select all that apply): Other ? Enter in Comments, Reason for indication? IVP Abx 2024 (Given - Provid er: Ольга Rodriguez RN - Comment: barcode ripped off medication bottle) iopamidol (Isovue-370) 76 % solution 80 mL (COMPLETED) 80 mL, Intravenous, Once in imaging, Starting on 01/17/24 at 1822, For 1 dose 1915 (Given - Provid er: Ari Chase, RT,ARRT) ketorolac (Toradol) injection 15 mg (COMPLETED) 15 mg, Intravenous, Once, On 01/17/24 at 1950, For 1 dose 1952 (Given - Provid er: Ольга Rodriguez, YAZAN) morphine injection 4 mg (COMPLETED) 4 mg, Intravenous, Once, On 01/17/24 at 1810, For 1 dose 1820 (Given - Provid er: Pepper Willoughby RN) ondansetron (Zofran) injection 4 mg (COMPLETED) 4 mg, Intravenous, Once, On 01/17/24 at 1810, For 1 dose, Indications: Nausea 1820 (Given - Provid er: Pepper Willoughby, YAZAN) sodium chloride 0.9 % bolus 1,000 mL (COMPLETED) 1,000 mL, Intravenous, at 999 mL/hr, Administer over 1 Hours, Once, On 01/17/24 at 1810, For 1 dose 1820 (New Bag - Prov ider: Pepper Willoughby RN)1947 (Stopped - Provider: Ольга Rodriguez RN) documented in this encounter Additional Health Concerns Assessment Noted Time A fall risk assessment has been complete d for the patient 03/06/2023 8:14 AM EDT documented as of this encounter Care Teams Tow Operator Relationship Specialty Start Date End Date Errol Underwood MD PCP - General Family Medicine 02/05/22 Errol Underwood MD [address] [place] [address] PCP - N-MS ACO REACH Attributed Provider 07/20/23 01/17/24 documented as of this encounter
--- OUTSIDE RECORDS SUMMARY | 2024-07-17 10:28 | XMS_ITS | Encounter Summary ---
Author Organization [facility] Address [address] [place] [address] Care Team Providers Care Benefit Specialist Name Role Phone Errol Underwood MD Primary Care Provider Errol Underwood MD Unavailable [phone] Source Comments Please be aware that You and/or your organization are solely responsible for the use, security, privacy, and any decisions made with any information you receive from [facility] Encounter Details Date Type Department Care Team (Late st Contact Info) Description 09/10/2023 Telephone [employer] [place] [address] [place] [address] Lora Mendoza LPN Social History [...] often do you attend chur ch or congregation services? Never 03/06/2023 Do you belong to any clubs o r organizations such as confucianist groups, unions, fraternal or athletic groups, or [...] [facility] - Occupational Stress Questionnaire Answer Date Recorded [...] place to sleep or slept in a snf (including now)? 2 03/06/2023 Sex and Gender Information Value Date Recorded Sex Assigned at Not on file Gender Identity Not on file Sexual Orientation Not on file documented as of this encounter Miscellaneous Notes * Telephone Encounter - Lora Mendoza LPN - 09/10/2023 11:42 AM EST Patient informed. No further questions. * Telephone Encounter - Errol Underwood MD - 09/10/2023 10:19 AM EST Those are excellent blood pressures, yes it is ok to use xanax with those heart rates, that shouldn't have much of an impact on HR. * Telephone Encounter - Lora Mendoza LPN - 09/10/2023 9:18 AM EST Patient called in her blood pressures: 09/08/23 - 136/76 63 09/09/23 - 135/70 61 131/66 66 09/10/23 - 136/72 66 She wants to know if it is okay to take Zanax if her heart rate is lower? documented in this encounter Plan of Treatment Upcoming Encounters Date Type Department Care Team (Late st Contact Info) Description 09/06/2024 11:00 AM EST Office Visit [facility] [place] [address] [place] [address] Errol Underwood MD [address] [place] [address] 03/16/2025 11:15 AM EDT Office Visit [facility] [place] [address] [place] [phone] Samuel Winslow MD [address] [place] [address] documented as of this encounter Visit Diagnoses Not on filedocumented in this encounter Additional Health Concerns Assessment Noted Time A fall risk assessment has been complete d for the patient 03/06/2023 8:14 AM EDT documented as of this encounter Care Teams Benefit Specialist Relationship Specialty Start Date End Date Errol Underwood MD PCP - General Family Medicine 02/05/22 Errol Underwood MD [address] [place] [address] PCP - PCN-MA ACO REACH Attributed Provider 07/20/23 01/17/24 documented as of this encounter
--- OUTSIDE RECORDS SUMMARY | 2024-07-17 10:28 | XMS_ITS | Encounter Summary ---
Author Organization Replaced by [facility] Address [address] [place] [address] Care Team Providers Care Manager Studio Name Role Phone Errol Underwood MD Primary Care Provider Errol Underwood MD Unavailable [phone] Source Comments Please be aware that You and/or your organization are solely responsible for the use, security, privacy, and any decisions made with any information you receive from Replaced by [facility].Replaced by [facility] Reason for Visit * Reason Comments Syncope PT was sitting at th e table when she felt lightheaded. PT states that she blacked out and threw up also. PT did not hit her head at all. * Auth/Cert (Routine) Specialty Diagnoses / Procedures Referred By Ryley t Referred To Contact Diagnoses Syncope, unspecified syncope type Debra Mcmahan MD [address] [place] [id number] [facility] Ed [address] [place] [phone] Referral ID Status Reason Start Date Expiration Date Visits Re quested Visits Authorized [id number] 1 1 Encounter Details Date Type Department Care Team (Latest Contact Info) Description 01/30/2024 6:02 PM EDT - 01/31/2024 1:21 PM EDT Hospital Encounter [facility] Emergency Department [address] [place] [phone] Addie Montgomery MD [address] [place] [phone] Debra Mcmahan MD [address] [place] [phone] Apolonia Stokes MD [address] [place] [id number] Syncope, unspecified syncope type (Primary Dx) Discharge Disposition: Home or Self [...] often do you attend chur ch or anglican services? Never 03/06/2023 Do you belong to any clubs o r organizations such as jain groups, unions, fraternal or athletic groups, or [...] Recorded Patient Health Questionnaire-2 Score 0 03/06/2023 [facility] of Occupat ional [facility] - Occupational Stress Questionnaire Answer [...] in a fdc (including now)? 2 03/06/2023 Health Literacy Answer Date Recorded How often do you need to hav e someone help you when you read instructions, pamphlets, or other written material from your doctor or pharmacy? Never 01/31/2024 [facility] Food Security Answer Date Recorded Within the past 12 months, t he food you bought just didn't last and you didn't have money to get more. 3 01/31/2024 Within the past 12 months, y ou worried that your food would run out before you got money to buy more. 3 01/31/2024 [facility] Transportation Needs Answer Date Re corded In the past 12 months, has l ack of reliable transportation kept you from medical appointments, meetings, work or from getting things needed for daily living? No 01/31/2024 [facility] Housing Answer Date Recorded What is your living situation today? I have a [facility] place to live 01/31/[address] you li ve. Do you have problems with any of the following? None of the above 01/31/2024 [facility] Safety Answer Date Recorded How often [...] scream or curse at you? 1 01/31/2024 [facility] Utilities Answer Date Recorded In the [...] Sign Reading Time Taken Comments Blood Pressure 143/64 01/31/2024 12:03 PM EDT Pulse 70 01/31/2024 12:03 PM EDT Temperature 36.4 ??C (97.6 ??F) 01/31/2024 12:03 PM E DT Respiratory Rate 16 01/31/2024 12:03 PM EDT Oxygen Saturation 99% 01/31/2024 7:17 AM EDT Inhaled Oxygen Concentration - - Weight 90.5 kg (199 lb 8.3 oz) 01/30/2024 6:00 P M EDT Height 162.6 cm (5' 4 ) 01/30/2024 6:00 PM EDT Body Mass Index 34.25 01/30/2024 6:00 PM EDT documented in this encounter Discharge Summaries * Apolonia Stokes MD - 01/31/2024 12:27 PM EDT Images from the original note were not included. Name: Brandon Espana / AGE: 8 1950 / 73 y.o. CSN: [id number] DISCHARGE SUMMARY DATE OF ADMISSION: 01/30/2024 DATE OF DISCHARGE: 01/31/2024 DISCHARGE DISPOSITION: Home or Self Care DISCHARGE DIAGNOSES Syncope, unspecified syncope type Active Problems: Gastroesophageal reflux disease Hypertension, essential HOSPITAL COURSE 73-year-old female history of GERD, AFib, hypertension presents with syncopal episode. Patient recently started on tamsulosin been having dizziness with medication. She was out eating when she had a sensation of passing out, witnessed patient had brief episode for her body stiffened. She was clammy, vomited. Workup in the ED was negative, patient had no episode of arrhythmia on telemetry.No recurrence of this episode. Workup included CT head without contrast, chest x-ray. No acute finding. Orthostatic negative. Discussed following up with PCP, may need loop recorder on outpatient basis if have recurrence of symptoms. However advice to discontinue tamsulosin. Patient being discharged in stable condition. Patient has reached maximal benefit from inpatient therapy. On the day of discharge patient was doing well, symptoms improved and felt ready to be discharged. Close follow up with PCP and consultants was advised. PHYSICAL EXAMINATION: Vital Signs 01/31/24 0353 01/31/24 0717 01/31/24 0837 01/31/24 1203 BP: (!) 124/54 (!) 141/61 (!) 147/61 (!) 143/64 BP Location: Left arm Patient Position: Lying Pulse: 70 76 77 70 Resp: 18 16 16 Temp: 36.4 ??C (97.6 ??F) 36.7 ??C (98 ??F) 36.4 ??C (97.6 ??F) SpO2: 98% 99% Weight: Height: Body mass index is 34.25 kg/m??. General: No acute distress. Respiratory: Clear vesicular breath sounds, no wheeze Cardiovascular: S1 S2 heard, RRR Gastrointestinal: Soft, normal bowel sounds with no tenderness Neurologic: AAOx3 Extremities : pulses 2+ SIGNIFICANT FINDINGS/TESTS/STUDIES Recent Results (from the past 24 hour(s)) CBC Auto Diff, Reflex Manual Diff if Indicated Collection Time: 01/30/24 6:34 PM Result Value WBC 8.76 RBC 4.25 Hemoglobin 12.5 Hematocrit 38.2 MCV 89.9 MCH 29.4 MCHC 32.7 Platelet Count 298 MPV 9.8 Neutrophils % 67.0 Lymphocytes % 22.1 Monocytes % 8.2 Eosinophils % 1.5 Basophils % 0.7 Neutrophils Absolute 5.87 Lymphocytes Absolute 1.94 Monocytes Absolute 0.72 Eosinophils Absolute 0.13 Basophil Absolute 0.06 RDW SD 47.3 NRBC % 0.0 Comprehensive metabolic panel Collection Time: 01/30/24 6:34 PM Result Value Sodium 139 Potassium 3.8 Chloride 101 Carbon Dioxide 26.3 Anion Gap 12 BUN 12.6 Creatinine 0.72 BUN/Creatinine Ratio 17.5 Glucose 177 (H) Calcium 9.3 AST 18 ALT 8 (L) Alkaline Phosphatase 85 Protein, Total 6.6 Albumin 3.84 Globulin 2.8 A/G Ratio 1.4 Bilirubin, Total 0.45 eGFR 89.0 Magnesium Collection Time: 01/30/24 6:34 PM Result Value Magnesium 1.85 PT and PTT Panel Collection Time: 01/30/24 6:34 PM Result Value Prothrombin Time 14.4 INR 1.07 APTT 25.9 Troponin T Quant High Sensitivity Initial Collection Time: 01/30/24 6:34 PM Result Value Troponin T, High Sensitivity <6 Respiratory panel Collection Time: 01/30/24 6:34 PM Specimen: Nasopharynx; Swab Result Value Adenovirus, PCR Not Detected SARS COV2 COVID19 PCR Not Detected Coronavirus HKU1 PCR Not Detected Coronavirus NL63 PCR Not Detected Coronavirus 229E PCR Not Detected Coronavirus OC43 PCR Not Detected Metapneumovirus PCR Not Detected Rhinovirus/Enterovirus PCR Not Detected Influenza A PCR Not Detected Influenza A H1 PCR Not Detected Influenza A H1 2009 PCR Not Detected Influenza A H3 PCR Not Detected Influenza B, PCR Not Detected Parainfluenza Virus 1, PCR Not Detected Parainfluenza Virus 2, PCR Not Detected Parainfluenza Virus 3, PCR Not Detected Parainfluenza Virus 4, PCR Not Detected RSV PCR Not Detected Bordetella pertussis PCR Not Detected Chlamydia Pneumoniae PCR Not Detected Mycoplasma pneumoniae PCR Not Detected Bordetella parapertussis PCR Not Detected Urinalysis with reflex microscopic and reflex culture Collection Time: 01/30/24 7:51 PM Result Value Color, Urine Colorless Clarity, Urine Clear Leukocyte Esterase, Urine Negative Nitrite, Urine Negative Protein, Qual, Urine Negative pH, Urine 6.0 Blood, Urine Negative Specific [place], Urine 1.005 Ketones, Urine Negative Bilirubin, Urine Negative Glucose, Qual, Urine Negative Troponin T Quant High Sensitivity 1 Hour Collection Time: 01/30/24 7:53 PM Result Value Troponin T, High Sensitivity <6 Troponin T Quant High Sensitivity 3 Hour Collection Time: 01/30/24 9:57 PM Result Value Troponin T, High Sensitivity 6 Extra Green Top Collection Time: 01/30/24 9:57 PM Result Value Extra Tube Hold for add-ons. Basic metabolic panel Collection Time: 01/31/24 3:21 AM Result Value Sodium 142 Potassium 3.9 Chloride 107 Carbon Dioxide 25.4 Anion Gap 10 Glucose 105 (H) BUN 10.3 Creatinine 0.59 BUN/Creatinine Ratio 17.5 Calcium 8.9 eGFR 95.9 CBC and differential Collection Time: 01/31/24 3:21 AM Result Value WBC 7.84 RBC 4.05 Hemoglobin 12.0 Hematocrit 35.6 MCV 87.9 MCH 29.6 MCHC 33.7 Platelet Count 259 MPV 10.0 Neutrophils % 69.0 Lymphocytes % 18.9 Monocytes % 9.9 Eosinophils % 1.0 Basophils % 0.8 Neutrophils Absolute 5.41 Lymphocytes Absolute 1.48 Monocytes Absolute 0.78 Eosinophils Absolute 0.08 Basophil Absolute 0.06 RDW SD 47.1 NRBC % 0.0 CK Collection Time: 01/31/24 3:21 AM Result Value Creatine Kinase 47 XR Chest 1 View Result Date: 01/31/2024 No acute cardiopulmonary pathology. Created by: Galindo Martinez Signed by: Galindo Martinez Signed on: 01/31/2024 2:11 EDT Location: [id number] CT Head WO IV Contrast Result Date: 01/30/2024 No acute finding. Created by: Lamberto Kelley MD Signed by: Lamberto Kelley MD Signed on: 01/30/2024 20:04 EDT Location: [id number] Consultants Not on file PROCEDURES/TREATMENTS CONDITION AT DISCHARGE: Improved and Clinically Stable DISCHARGE INSTRUCTIONS: Education: See After Visit Summary Activity: activity as tolerated Diet Orders None Follow Up Orders None Current Discharge Medication List CONTINUE these medications which have NOT CHANGED Details ALPRAZolam (Xanax) 0.5 MG tablet Take 1 tablet (0.5 mg total) by mouth at night if needed for anxiety. Associated Diagnoses: Anxiety aspirin (aspirin) 81 MG EC tablet Patient stated, Yes, its chewable. atenolol (Tenormin) 50 MG tablet Take 1 tablet (50 mg total) by mouth 1 (one) time each day. Associated Diagnoses: Hypertension, essential atorvastatin (Lipitor) 20 MG tablet Take 1 tablet (20 mg total) by mouth 1 (one) time each day. Associated Diagnoses: Mixed hyperlipidemia Calcium Carbonate-Vitamin D 600-200 MG-UNIT capsule Take 1 capsule every day by oral route. lansoprazole (Prevacid) [address] capsule TAKE 1 CAPSULE BY MOUTH EVERY DAY BEFORE A MEAL Associated Diagnoses: Gastroesophageal reflux disease with esophagitis, unspecified whether hemorrhage STOP tamsulosin (Flomax) 0.4 MG capsule cephalexin (Keflex) 500 MG capsule HYDROcodone-acetaminophen ([place]) 5-325 MG tablet ibuprofen 600 MG tablet ondansetron ODT (Zofran-ODT) 4 MG disintegrating tablet scopolamine (Transderm-Scop) 1 MG/3DAYS patch 72 hour PENDING LABS: Time spent on discharge: Greater than 30 minutes time spent on discharge. documented in this encounter Medications at Time [...] 1 11/24/2023 2024 atenolol (Tenormin) 50 MG tabletIndications:Hyperte nsion, essential Take 1 tablet (50 mg total) by mouth 1 (one) time each day. 90 tablet 3 08/31/2023 2024 documented as of this encounter Progress Notes * Miah Smith Jr., RN - 01/31/2024 12:40 PM EDT [employer] Sommel[employer] Initial Evaluation Note Validate Info on Facesheet The following items were validated: Patient's name, Primary language, Address, Emergency contact, Everyday contact #, Emergency phone #, Insurance, PCP, Preferred pharmacy, Ethnicity Last visit with PCP: within last 6 months Advance Directives (For Healthcare) Have you reviewed your Advance Directive and is it valid for this stay?: No Advance Directive: Patient does not have advance directive, Patient offered information, does not wish to complete at this time Information Provided on Healthcare Directives: No Pre-existing DNR/DNI Order: No Patient Requests Assistance: No Nsg Discharge Planning Who is providing this discharge planning information?: Patient Lives with: Spouse Support Systems: Spouse/significant other Prior to admission assistance needed: None Type of Residence: Private residence Type of Home: House Do you have animals or pets at home?: No Who is requesting discharge planning?: Provider Home or Post Acute Services: None Needed Patient expects to be discharged to:: Home Does the patient need discharge transport arranged?: No CM Contact Information Name: Miah Phone number: [phone] Basic Information Assessment completed while patient in: Inpatient Evaluation information collected from: Patient Financial Assistance Advisor Services Is an register in chancery used? : No Support and Level of Function Primary role/responsibilities: Retired Do you have someone who is willing and able to assist you after you leave the hospital?: No assistance needed Are you able to perform all of your activities of daily living (ADLs)?: Yes Are you able to perform all of your independent activities of daily living?: Yes On average, how many days per week do you engage in moderate to strenuous exercise (like a brisk walk)?: 3 days On average, how many minutes do you engage in exercise at this level?: 40 min Anticipated changes related to illness: None Current PAC Services/Placement Patient in a facility prior to admission: No Current home skilled services: None Current community resources: None Current outpatient skilled services: None Current support group: None Current DME utilized: None Employment Employment Status: retired 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 Do you have problems with any of the following?: None of the above Transportation In the past 12 months, has lack of reliable transportation kept you from medical appointments, meetings, work or from getting things needed for daily living?: No Food Within the past 12 months, you worried that your food would run out before you got money to buy more.: Never true Within the past 12 months, the food you bought just didn't last and you didn't have money to get more.: Never true Trauma/Safety Assessment: Because violence and abuse happens to a lot of people and affects their health we are asking the following questions: How often does anyone, including family and friends, physically hurt you?: Never How often does anyone, including family and friends, insult or talk down to you?: Never How often does anyone, including family and friends, threaten you with harm?: Never How often does anyone, including family and friends, scream or curse at you?: Never Safety Score: 4 Coping/Stress/Tolerance Major Change/Loss/Stressor/Fears: denies Techniques to [place] with Loss/Stress/Change: diversional activities, spiritual practice(s) Violence Risk Screening Assessment of Violence: None noted History of Violence in Healthcare: No Thoughts of Harm to Others: No Home Living Patient expresses concerns regarding home layout: No Home Layout: One level Home Access: Level entry Bathroom Shower/Tub: Walk-in shower Bathroom Toilet: Standard Bathroom Equipment: Grab bars in shower Transition Needs Evaluation Anticipated discharge disposition: Home or Self Care Post discharge needs: None Support group needs for discharge: None Outpatient skilled service needs for discharge: None Does the patient need discharge transport arranged?: No Barriers to transition: Complex medical care needs Patient/family/HCA in agreement with plan: Yes Understanding of Condition and Treatment: adequate understanding of medical condition, adequate understanding of treatment Readmission Reason Readmission within the last 30 days: No recent readmission within last 30 days Readmission Risk Assessment High Risk Principal Diagnosis (select all that apply): None Prior Hospitalization (Non-elective); in last 6 months: No High Risk Medications (select all that apply): None Psychological Mental Health Needs/Current Addiction Behaviors: No Polypharmacy (>/= 10 routine meds): No Poor Health Literacy (inability to do teach back and/or understanding of diagnosis, treatment or care plan): No Patient Support (Social, Financial and Physical) (absence of caregiver to assist with discharge andhome care): No Presence of an Advanced or Progressive/Serious Illness: No Poor Nutrition (unintentional 10 lbs weight loss over 6 mos; TPN or tube feeds; NPO > 5 days during stay): No Adjusted Readmission Risk Readmission risk adjusted to: N/A Next Eval Due Date Next eval due date: 02/02/24 CM met with the patient to complete the IE. Independent, with no Hx of HHC/DME/SNF/Rehab. CM anticipates the DCP to be home with no needs. documented in this encounter H&P Notes * Debra Mcmahan MD - 01/30/2024 9:53 PM EDT Name: Brandon MOREL / AGE: 8 1950 / 73 y.o. [facility] HOSPITALIST HISTORY AND PHYSICAL DATE OF ADMISSION: 01/30/2024 DATE OF SERVICE: 01/30/24 Chief Complaint Patient presents with Syncope PT was sitting at the table when she felt lightheaded. PT states that she blacked out and threw up also. PT did not hit her head at all. HISTORY OF PRESENT ILLNESS: Brandon Espana is a 73 y.o. female with PMH of GERD, Afib, essential hypertension hyperlipidemia, mooddisorder, BPH Reports syncope that occurred while patient was sitting down the table. She reports she lost consciousness afterwards. Has been was with the patient he reported that she may have had a seizure episode. Denies any tongue biting or confusion afterwards. Denies any head trauma. Of note, patient is on tamsulosin for a kidney stone which was prescribed by her primary care provider. Reports that she has been dizzy for the past couple of weeks. She stopped taking tamsulosin we will restarted 2 days ago because her primary care provider told her that she should continue taking it. Denies any chest pain, shortness for breath, cough, abdominal pain, nausea ALLERGIES No Known Allergies PAST MEDICAL/FAMILY/SOCIAL HISTORY: Brandon Espana has a past medical history of GERD (gastroesophageal reflux disease), History of atrialfibrillation, Hyperlipidemia, Hypertension, and Renal stones. Brandon Espana family history includes Coronary artery disease in her father; Diabetes in her father; Hypertension in her father. Brandon Espana reports that she has never smoked. She has never used smokeless tobacco. She reports current alcohol use. She reports that she does not use drugs. INPATIENT MEDICATIONS: [START ON 01/31/2024] aspirin, 81 mg, Oral, Daily [START ON 01/31/2024] atorvastatin, 20 mg, Oral, Daily [START ON 01/31/2024] enoxaparin, 40 mg, Subcutaneous, q24h MIKE metoprolol tartrate, 25 mg, Oral, BID [START ON 01/31/2024] pantoprazole, 40 mg, Oral, Daily before breakfast scopolamine, 1 patch, Transdermal, q72h sodium chloride, , Intravenous, q12h OUTPATIENT MEDICATIONS Current Outpatient Medications Medication Instructions ALPRAZolam (XANAX) 0.5 mg, Oral, Nightly PRN aspirin (aspirin) 81 MG EC tablet Patient stated, Yes, its chewable. atenolol (TENORMIN) 50 mg, Oral, Daily atorvastatin (LIPITOR) 20 mg, Oral, Daily Calcium Carbonate-Vitamin D 600-200 MG-UNIT capsule Take 1 capsule every day by oral route. HYDROcodone-acetaminophen ([place]) 5-325 MG tablet 1 tablet, Oral, Every 6 hours PRN ibuprofen 600 mg, Oral, Every 6 hours lansoprazole (Prevacid) [address] capsule TAKE 1 CAPSULE BY MOUTH EVERY DAY BEFORE A MEAL ondansetron ODT (ZOFRAN-ODT) 4 mg, Oral, Every 8 hours PRN scopolamine (TRANSDERM-SCOP) 1 mg, Transdermal, Every 72 hours tamsulosin (FLOMAX) 0.4 mg, Oral, Daily REVIEW OF SYSTEMS: 12 point ROS is negative other than what is stated in HPI PHYSICAL EXAMINATION: BP (!) 157/78 Pulse 80 Temp 36.3 ??C (97.3 ??F) (Oral) Resp 15 Ht 1.626 m (5' 4 ) Wt 90.5kg (199 lb 8.3 oz) BMI 34.25 kg/m?? Physical Exam Cardiovascular: Rate and Rhythm: Normal rate. Pulses: Normal pulses. Pulmonary: Effort: Pulmonary effort is normal. Abdominal: General: Abdomen is flat. Musculoskeletal: General: Normal range of motion. Neurological: General: No focal deficit present. Mental Status: She is alert. Psychiatric: Mood and Affect: Mood normal. LABS: Recent Results (from the past 24 hour(s)) CBC Auto Diff, Reflex Manual Diff if Indicated Collection Time: 01/30/24 6:34 PM Result Value WBC 8.76 RBC 4.25 Hemoglobin 12.5 Hematocrit 38.2 MCV 89.9 MCH 29.4 MCHC 32.7 Platelet Count 298 MPV 9.8 Neutrophils % 67.0 Lymphocytes % 22.1 Monocytes % 8.2 Eosinophils % 1.5 Basophils % 0.7 Neutrophils Absolute 5.87 Lymphocytes Absolute 1.94 Monocytes Absolute 0.72 Eosinophils Absolute 0.13 Basophil Absolute 0.06 RDW SD 47.3 NRBC % 0.0 Comprehensive metabolic panel Collection Time: 01/30/24 6:34 PM Result Value Sodium 139 Potassium 3.8 Chloride 101 Carbon Dioxide 26.3 Anion Gap 12 BUN 12.6 Creatinine 0.72 BUN/Creatinine Ratio 17.5 Glucose 177 (H) Calcium 9.3 AST 18 ALT 8 (L) Alkaline Phosphatase 85 Protein, Total 6.6 Albumin 3.84 Globulin 2.8 A/G Ratio 1.4 Bilirubin, Total 0.45 eGFR 89.0 Magnesium Collection Time: 01/30/24 6:34 PM Result Value Magnesium 1.85 PT and PTT Panel Collection Time: 01/30/24 6:34 PM Result Value Prothrombin Time 14.4 INR 1.07 APTT 25.9 Troponin T Quant High Sensitivity Initial Collection Time: 01/30/24 6:34 PM Result Value Troponin T, High Sensitivity <6 Respiratory panel Collection Time: 01/30/24 6:34 PM Specimen: Nasopharynx; Swab Result Value Adenovirus, PCR Not Detected SARS COV2 COVID19 PCR Not Detected Coronavirus HKU1 PCR Not Detected Coronavirus NL63 PCR Not Detected Coronavirus 229E PCR Not Detected Coronavirus OC43 PCR Not Detected Metapneumovirus PCR Not Detected Rhinovirus/Enterovirus PCR Not Detected Influenza A PCR Not Detected Influenza A H1 PCR Not Detected Influenza A H1 2009 PCR Not Detected Influenza A H3 PCR Not Detected Influenza B, PCR Not Detected Parainfluenza Virus 1, PCR Not Detected Parainfluenza Virus 2, PCR Not Detected Parainfluenza Virus 3, PCR Not Detected Parainfluenza Virus 4, PCR Not Detected RSV PCR Not Detected Bordetella pertussis PCR Not Detected Chlamydia Pneumoniae PCR Not Detected Mycoplasma pneumoniae PCR Not Detected Bordetella parapertussis PCR Not Detected Urinalysis with reflex microscopic and reflex culture Collection Time: 01/30/24 7:51 PM Result Value Color, Urine Colorless Clarity, Urine Clear Leukocyte Esterase, Urine Negative Nitrite, Urine Negative Protein, Qual, Urine Negative pH, Urine 6.0 Blood, Urine Negative Specific [place], Urine 1.005 Ketones, Urine Negative Bilirubin, Urine Negative Glucose, Qual, Urine Negative Troponin T Quant High Sensitivity 1 Hour Collection Time: 01/30/24 7:53 PM Result Value Troponin T, High Sensitivity <6 RADIOLOGY: CT Head WO IV Contrast Result Date: 01/30/2024 No acute finding. Created by: Lamberto Kelley MD Signed by: Lamberto Kelley MD Signed on: 01/30/2024 20:04 EDT Location: [id number] DIAGNOSTIC IMPRESSION: Principal Problem: Syncope, unspecified syncope type (POA: Yes) Active Problems: Gastroesophageal reflux disease (POA: Yes) Hypertension, essential (POA: Yes) Syncope (POA: Unknown) Resolved Problems: There are no Resolved Problems. ASSESSMENT & PLAN: # syncope # atrial fibrillation # essential hypertension Acute, likely medicine related (on tamsulosin for kidney stone per HPI). Low suspicion cardiogenic (dizziness is prodrome, Troponin within normal limits, EKG shows sinus rhythm, hemodynamically stable) however we will rule out arrhythmia with telemetry. Likely had a syncopal seizure afterwards. A negative CPK will support this. CT head negative for any acute bleed Plan Hold tamsulosin Follow up chest x-ray Telemetry [facility] CPK # GERD Chronic, controlled Pantoprazole # BPH Chronic, controlled Hold Tamsulosin CODE STATUS: Full Code VTE PROPHYLAXIS: Lovenox DIET: Adult diet Regular Debra Mcmahan MD, [facility] 01/30/2024, 10:22 PM documented in this encounter ED Notes * Radha Del Real PA-C - 01/30/2024 8:03 PM EDT HPI Chief Complaint Patient presents with Syncope PT was sitting at the table when she felt lightheaded. PT states that she blacked out and threw up also. PT did not hit her head at all. 73 years old female came to ED because of syncope, no chest pain no shortness a breath nodizziness, history of hypertension history of atrial fibrillation and not on blood thinner. 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 Syncope Episode history: Single Most recent episode: Today Duration: 1 hour Timing: Intermittent Progression: Unchanged Chronicity: New Context: not blood draw, not bowel movement, not dehydration, not exertion, not inactivity, not medication change, not with normal activity, not sight of blood, not sitting down, not standing up and not urination Witnessed: no Relieved by: Nothing Worsened by: Nothing Ineffective treatments: None tried Associated symptoms: no anxiety, no chest pain, no confusion, no diaphoresis, no difficulty breathing, no dizziness, no fever, no focal sensory loss, no focal weakness, no headaches, no malaise/fatigue, no nausea, no palpitations, no recent fall, no recent injury, no recent surgery, no rectal bleeding, no seizures, no shortness of breath, no visual change, no vomiting and no weakness Risk factors: no congenital heart disease, no coronary artery disease, no seizures and no vascular disease [place] Coma Scale Score: 15 NIH Stroke Scale: 0 Patient History Past Medical History: Diagnosis Date GERD (gastroesophageal reflux disease) History of atrial fibrillation Hyperlipidemia Hypertension Renal stones Past Surgical History: Procedure Laterality Date CYSTOSCOPY 10/15/2018 DILATION AND CURETTAGE OF UTERUS 12/03/2015 TONSILLECTOMY PEDS Family History Problem Relation Name Age of Onset Diabetes Father Hypertension Father Coronary artery disease Father Social History Tobacco Use Smoking status: Never Smokeless tobacco: Never Vaping Use Vaping Use: Never used Substance Use Topics Alcohol use: Yes Drug use: Never Review of Systems Review of Systems Constitutional: Negative. Negative for diaphoresis, fever and malaise/fatigue. HENT: Negative. Eyes: Negative. Respiratory: Negative. Negative for shortness of breath. Cardiovascular: Positive for syncope. Negative for chest pain and palpitations. Gastrointestinal: Negative. Negative for nausea and vomiting. Endocrine: Negative. Genitourinary: Negative. Musculoskeletal: Negative. Skin: Negative. Allergic/Immunologic: Negative. Neurological: Negative for dizziness, focal weakness, seizures, weakness and headaches. Hematological: Negative. Psychiatric/Behavioral: Negative. Negative for confusion. All other systems reviewed and are negative. Physical Exam ED Triage Vitals Temp Heart Rate Resp BP 01/30/24179901/30/24179901/30/24179901/30/241799 36.3 ??C (97.3 ??F) 73 16 (!) 146/61 SpO2 Temp Source Heart Rate Source Patient Position 01/30/24179901/30/24179901/30/24179901/30/24 1800 98 % Oral Monitor Sitting BP Location FiO2 (%) Oxygen Therapy O2 Flow Rate (L/min) 01/30/241799 -- 01/30/241941 -- Right arm None (Room air) O2 Delivery Method -- Physical Exam Vitals and nursing note reviewed. Constitutional: Appearance: Normal appearance. She is normal weight. HENT: Head: Normocephalic. Right Ear: External ear normal. Left Ear: External ear normal. Nose: Nose normal. Mouth/Throat: Mouth: Mucous membranes are dry. Pharynx: Oropharynx is clear. Eyes: Conjunctiva/sclera: Conjunctivae normal. Cardiovascular: Rate and Rhythm: Normal rate and regular rhythm. Pulses: Normal pulses. Heart sounds: Normal heart sounds. Pulmonary: Effort: Pulmonary effort is normal. Breath sounds: Normal breath sounds. Abdominal: General: Abdomen is flat. Bowel sounds are normal. Musculoskeletal: General: Normal range of motion. Cervical back: Normal range of motion and neck supple. Skin: General: Skin is warm. Coloration: Skin is not pale. Findings: No bruising, erythema, lesion or rash. Neurological: General: No focal deficit present. Mental Status: She is alert and oriented to person, place, and time. Mental status is at baseline. Psychiatric: Mood and Affect: Mood normal. Behavior: Behavior normal. Thought Content: Thought content normal. Judgment: Judgment normal. ED Course & MDM ED Course as of 01/30/242232 Sat Jan 30, 2024 1901 ECG 12 lead SINUS RHYTHM Compared to ECG 01/17/2024 18:19:43 Sinus arrhythmia no longer present Rate of 71. Normal axis. No STEMI [EM] ED Course User Index [EM] Addie Montgomery MD Diagnosis as of 01/30/242232 Syncope, unspecified syncope type Final Diagnosis Diagnosis Comment Added By Time Added Syncope, unspecified syncope type [R55] Radha Del Real PA-C 01/30/2024 9:45 PM ED Disposition: Admit Medical Decision Making This 73 years old female came to ED because of generalized weakness and syncope and vitalsign blood pressure 157/78 temperature 97.3?? heart rate 80 respiratory 15 oxygen 100% room air. CBC CMP troponin proBNP resort review noted in ED course and CT brain show no bleed no infarct chest x-ray is clear and review discussed and mid to the hospital because of syncope uncertain origin. Amount and/or Complexity of Data Reviewed Independent Historian: Details: Patient provide her own information External Data Reviewed: labs, radiology, ECG and notes. Details: Not available Labs: ordered. Decision-making details documented in ED Course. Details: CBC CMP troponin resort review noted in ED course Radiology: ordered and independent interpretation performed. Decision-making details documented in ED Course. Details: Chest x-ray show no infiltration no pneumothorax CT brain show no bleed no infarct ECG/medicine tests: ordered and independent interpretation performed. Decision- making details documented in ED Course. Details: EKG 71 heart rate non-STEMI Discussion of management or test interpretation with external provider(s): Review discussed with patient about care management plan and admitted to the hospital because of syncope Risk OTC drugs. Prescription drug management. Visit Vital Signs Vitals: 01/30/24 2200 BP: (!) 157/78 Pulse: 80 Resp: 15 Temp: SpO2: 100% Medications sodium chloride 0.9 % flush (has no administration in time range) And sodium chloride 0.9 % flush (has no administration in time range) potassium bicarbonate-citric acid (Effer-K) 20 MEQ effervescent tablet 20 mEq (has no administration in time range) potassium chloride IVPB 20 mEq (has no administration in time range) magnesium oxide (Mag-Ox) tablet 400 mg (has no administration in time range) magnesium sulfate IVPB 2 g (has no administration in time range) magnesium sulfate IVPB 4 g (has no administration in time range) acetaminophen (Tylenol) tablet 650 mg (has no administration in time range) Or acetaminophen (Tylenol) 160 MG/5ML solution 650 mg (has no administration in time range) Or acetaminophen (Tylenol) suppository 650 mg (has no administration in time range) morphine injection 1 mg (has no administration in time range) ondansetron ODT (Zofran-ODT) disintegrating tablet 4 mg (has no administration in time range) Or ondansetron (Zofran) injection 4 mg (has no administration in time range) Or ondansetron (Zofran) injection 4 mg (has no administration in time range) prochlorperazine (Compazine) tablet 10 mg (has no administration in time range) Or prochlorperazine (Compazine) injection 10 mg (has no administration in time range) Or prochlorperazine (Compazine) injection 10 mg (has no administration in time range) Or prochlorperazine (Compazine) suppository 25 mg (has no administration in time range) ALPRAZolam (Xanax) tablet 0.5 mg (has no administration in time range) senna-docusate (Nasrin-Colace) 8.6-50 MG per tablet 2 tablet (has no administration in time range) bisacodyl (Dulcolax) EC tablet 10 mg (has no administration in time range) glycerin suppository 2 g (has no administration in time range) diphenhydrAMINE (Benadryl) capsule 25 mg (has no administration in time range) enoxaparin (Lovenox) syringe 40 mg (has no administration in time range) aspirin EC tablet 81 mg (has no administration in time range) atorvastatin (Lipitor) tablet 20 mg (has no administration in time range) pantoprazole (Protonix) EC tablet 40 mg (has no administration in time range) metoprolol tartrate (Lopressor) tablet 25 mg (has no administration in time range) Procedures Lab Results Recent Results (from the past 12 hour(s)) CBC Auto Diff, Reflex Manual Diff if Indicated Collection Time: 01/30/24 6:34 PM Result Value WBC 8.76 RBC 4.25 Hemoglobin 12.5 Hematocrit 38.2 MCV 89.9 MCH 29.4 MCHC 32.7 Platelet Count 298 MPV 9.8 Neutrophils % 67.0 Lymphocytes % 22.1 Monocytes % 8.2 Eosinophils % 1.5 Basophils % 0.7 Neutrophils Absolute 5.87 Lymphocytes Absolute 1.94 Monocytes Absolute 0.72 Eosinophils Absolute 0.13 Basophil Absolute 0.06 RDW SD 47.3 NRBC % 0.0 Comprehensive metabolic panel Collection Time: 01/30/24 6:34 PM Result Value Sodium 139 Potassium 3.8 Chloride 101 Carbon Dioxide 26.3 Anion Gap 12 BUN 12.6 Creatinine 0.72 BUN/Creatinine Ratio 17.5 Glucose 177 (H) Calcium 9.3 AST 18 ALT 8 (L) Alkaline Phosphatase 85 Protein, Total 6.6 Albumin 3.84 Globulin 2.8 A/G Ratio 1.4 Bilirubin, Total 0.45 eGFR 89.0 Magnesium Collection Time: 01/30/24 6:34 PM Result Value Magnesium 1.85 PT and PTT Panel Collection Time: 01/30/24 6:34 PM Result Value Prothrombin Time 14.4 INR 1.07 APTT 25.9 Troponin T Quant High Sensitivity Initial Collection Time: 01/30/24 6:34 PM Result Value Troponin T, High Sensitivity <6 Respiratory panel Collection Time: 01/30/24 6:34 PM Specimen: Nasopharynx; Swab Result Value Adenovirus, PCR Not Detected SARS COV2 COVID19 PCR Not Detected Coronavirus HKU1 PCR Not Detected Coronavirus NL63 PCR Not Detected Coronavirus 229E PCR Not Detected Coronavirus OC43 PCR Not Detected Metapneumovirus PCR Not Detected Rhinovirus/Enterovirus PCR Not Detected Influenza A PCR Not Detected Influenza A H1 PCR Not Detected Influenza A H1 2009 PCR Not Detected Influenza A H3 PCR Not Detected Influenza B, PCR Not Detected Parainfluenza Virus 1, PCR Not Detected Parainfluenza Virus 2, PCR Not Detected Parainfluenza Virus 3, PCR Not Detected Parainfluenza Virus 4, PCR Not Detected RSV PCR Not Detected Bordetella pertussis PCR Not Detected Chlamydia Pneumoniae PCR Not Detected Mycoplasma pneumoniae PCR Not Detected Bordetella parapertussis PCR Not Detected Urinalysis with reflex microscopic and reflex culture Collection Time: 01/30/24 7:51 PM Result Value Color, Urine Colorless Clarity, Urine Clear Leukocyte Esterase, Urine Negative Nitrite, Urine Negative Protein, Qual, Urine Negative pH, Urine 6.0 Blood, Urine Negative Specific [place], Urine 1.005 Ketones, Urine Negative Bilirubin, Urine Negative Glucose, Qual, Urine Negative Troponin T Quant High Sensitivity 1 Hour Collection Time: 01/30/24 7:53 PM Result Value Troponin T, High Sensitivity <6 I have personally reviewed and interpreted the lab results above. Radiology Results CT Head WO IV Contrast Final Result No acute finding. Created by: Lamberto Kelley MD Signed by: Lamberto Kelley MD Signed on: 01/30/2024 20:04 EDT Location: [id number] XR Chest 1 View (Results Pending) I personally reviewed the radiology results as listed above. Final Disposition ED Prescriptions None Follow up No follow-up provider specified. Radha Del Real PA-C 01/30/24 2233 Associated attestation - Addie Montgomery MD - 01/31/2024 12:53 AM EDT SHARED FACE TO FACE ATTESTATION: This visit was performed by both a physician and an APC. I personally evaluated and examined the patient. I performed all aspects of the MDM as documented. Patient is a 73-year-old who presents to the emergency department with syncope and collapse. at bedside states that he was concerned about possible seizure activity, as she would not respond to him. This episode occurred at rest. Has never had similar episodes. No acute distress at this time. Will admit to obs for further workup. documented in this encounter Miscellaneous Notes * Patient Discharge Packet - CATALINO TAVERAS - 01/31/2024 12:52 PM EDT Images from the original note were not included. Patient Education Table of Contents Syncope, Adult To view videos and all your education online visit, [email or web address] or scan this QR code with your smartphone. Access to this content will in one year. Syncope, Adult Syncope refers to a condition in which a person temporarily loses consciousness. Syncope may also be called fainting or passing out. It is caused by a sudden decrease in blood flow to the brain. Thiscan happen for a variety of reasons. Most causes of syncope are not dangerous. It can be triggered by things such as needle sticks, seeing blood, pain, or intense emotion. However, syncope can also be a sign of a serious medical problem, such as a heart abnormality. Other causes can include dehydration, migraines, or taking medicines that lower blood pressure. Your health care provider may do tests to find the reason why you are having syncope. If you faint, get medical help right away. Call your local emergency services (911 in the [place] Follow these instructions at home: Pay attention to any changes in your symptoms. Take these actions to stay safe and to help relieve your symptoms: Knowing when you may be about to faint Signs that you may be about to faint include: ? Feeling dizzy, weak, light-headed, or like the room is spinning. ? Feeling nauseous. ? Seeing spots or seeing all white or all black in your field of vision. ? Having cold, clammy skin or feeling warm and sweaty. ? Hearing ringing in the ears (tinnitus). If you start to feel like you might faint, sit or lie down right away. If sitting, put your head down between your legs. If lying down, raise (elevate) your feet above the level of your heart. ? Breathe deeply and steadily. Wait until all the symptoms have passed. ? Have someone stay with you until you feel stable. Medicines Take [id number] and prescription medicines only as told by your health care provider. If you are taking blood pressure or heart medicine, get up slowly and take several minutes to sit and then stand. This can reduce dizziness and decrease the risk of syncope. Lifestyle Do not drive, use machinery, or play sports until your health care provider says it is okay. Do not drink alcohol. Do not use any products that contain nicotine or tobacco. These products include cigarettes, chewing tobacco, and vaping devices, such as e-cigarettes. If you need help quitting, ask your health careprovider. Avoid hot tubs and saunas. General instructions Talk with your health care provider about your symptoms. You may need to have testing to understandthe cause of your syncope. Drink enough fluid to keep your urine pale yellow. Avoid prolonged standing. If you must stand for a long time, do movements such as: ? Moving your legs. ? Crossing your legs. ? Flexing and stretching your leg muscles. ? Squatting. Keep all follow-up visits. This is important. Contact a health care provider if: You have episodes of near fainting. Get help right away if: You faint. You hit your head or are injured after fainting. You have any of these symptoms that may indicate trouble with your heart: ? Fast or irregular heartbeats (palpitations). ? Unusual pain in your chest, abdomen, or back. ? Shortness of breath. You have a seizure. You have a severe headache. You are confused. You have vision problems. You have severe weakness or trouble walking. You are bleeding from your mouth or rectum, or you have black or tarry stool. These symptoms may represent a serious problem that is an emergency. Do not wait to see if your symptoms will go away. Get medical help right away. Call your local emergency services (911 in the [place] Do not drive yourself to the hospital. Summary Syncope refers to a condition in which a person temporarily loses consciousness. Syncope may also be called fainting or passing out. It is caused by a sudden decrease in blood flow to the brain. Signs that you may be about to faint include dizziness, feeling light-headed, feeling nauseous, sudden vision changes, or cold, clammy skin. Even though most causes of syncope are not dangerous, syncope can be a sign of a serious medical problem. Get help right away if you faint. If you start to feel like you might faint, sit or lie down right away. If sitting, put your head down between your legs. If lying down, raise (elevate) your feet above the level of your heart. This information is not intended to replace advice given to you by your health care provider. Make sure you discuss any questions you have with your health care provider. Document Released: 2006-07-06 Document Updated: 2021-11-14 Document Reviewed: 2021-11-14 Elsevier Patient Education ? 2023 [employer]. documented in this encounter Plan of Treatment [...] Description 09/06/2024 11:00 AM EST Office Visit [facility] [place] [address] [place] [address] Errol Underwood MD [address] [place], [place] [id number] 03/16/2025 11:15 AM EDT Office Visit [facility] [place] [address] [place] [address] Samuel Winslow MD [address] [place] [address] documented as of this encounter Procedures Procedure Name Priority Date/Time Associated Diagnosis Comments CBC W/AUTO DIFF, REFLEX MANUAL DIFF IF INDICATED Routine 01/31/2024 3:21 AM EDT CK Routine 01/31/2024 3:21 AM EDT BASIC METABOLIC PANEL Routine 01/31/2024 3:21 AM EDT TROPONIN T QUANT HIGH SENSITIVITY 3 HOUR STAT 01/30/2024 9:57 PM EDT EXTRA GREEN TOP Routine 01/30/2024 9:57 PM EDT EXTRA TUBES Routine 01/30/2024 9:57 PM EDT TROPONIN T QUANT HIGH SENSITIVITY 1 HOUR STAT 01/30/2024 7:53 PM EDT URINALYSIS WITH REFLEX MICROSCOPIC AND REFLEX CULTURE STAT 01/30/2024 7:51 PM EDT ECG 12-LEAD STAT 01/30/2024 6:49 PM EDT XR CHEST 1 VIEW STAT 01/30/2024 6:42 PM EDT TROPONIN T QUANT HIGH SENSITIVITY INITIAL STAT 01/30/2024 6:34 PM EDT TROPONIN T QUANT HIGH SENSITIVITY PANEL (0, 1, 3 HOUR) STAT 01/30/2024 6:34 PM EDT RESPIRATORY PANEL STAT 01/30/2024 6:3 4 PM EDT PT AND PTT PANEL STAT 01/30/2024 6:34 PM EDT CBC W/AUTO DIFF, REFLEX MANUAL DIFF IF INDICATED STAT 01/30/2024 6:34 PM EDT MAGNESIUM STAT 01/30/2024 6:34 PM EDT COMPREHENSIVE METABOLIC PANEL STAT 01/30/2024 6:[address] HEAD WO IV CONTRAST ED Priority 01/30/2024 6:26 PM EDT documented in this encounter Results * CBC and differential (01/31/2024 3:21 AM EDT) WBC 7.84 5.40 - 10.80 10*3/uL 01/31/2024 3:[address] [facility] RBC 4.05 3.79 - 5.19 10*6/uL 01/31/2024 3:[address] [facility] Hemoglobin 12.0 11.2 - 15.7 g/dL 01/31/2024 3:[address] [facility] Hematocrit 35.6 34.1 - 44.9 % 01/31/2024 3:[address] [facility] MCV 87.9 83.7 - 99.5 fL 01/31/2024 3:[address] [facility] MCH 29.6 27.6 - 33.1 pg 01/31/2024 3:[address] [facility] MCHC 33.7 31.3 - 34.9 g/dL 01/31/2024 3:[address] [facility] Platelet Count 259 126 - 432 10*3/uL 01/31/2024 3:[address] [facility] MPV 10.0 9.2 - 12.2 fL 01/31/2024 3:[address] [facility] Neutrophils % 69.0 42.7 - 77.1 % 01/31/2024 3:[address] [facility] Lymphocytes % 18.9 12.1 - 45.3 % 01/31/2024 3:[address] [facility] Monocytes % 9.9 4.4 - 12.5 % 01/31/2024 3:[address] [facility] Eosinophils % 1.0 0.0 - 5.6 % 01/31/2024 3:[address] [facility] Basophils % 0.8 0.0 - 1.0 % 01/31/2024 3:[address] [facility] Neutrophils Absolute 5.41 1.40 - 6.80 10*3/uL 01/31/2024 3:[address] [facility] Lymphocytes Absolute 1.48 0.60 - 3.20 10*3/uL 01/31/2024 3:[address] [facility] Monocytes Absolute 0.78 0.20 - 0.90 10*3/uL 01/31/2024 3:[address] [facility] Eosinophils Absolute 0.08 0.00 - 0.60 10*3/uL 01/31/2024 3:[address] [facility] Basophil Absolute 0.06 0.00 - 0.10 10*3/uL 01/31/2024 3:[address] [facility] RDW SD 47.1 38.6 - 50.2 fL 01/31/2024 3:[address] [facility] NRBC % 0.0 0.0 - 0.2 % 01/31/2024 3:[address] [facility] Blood Venous blood specimen / Unknown Venipuncture / Unknown 01/31/2024 3:21 AM EDT 01/31/2024 3:51 AM EDT Debra Mcmahan MD LAB BLOOD ORDERABLES Performing Organization Address [facility]/State/ZIP Co de Phone Number [place] [phone], * (ABNORMAL) Basic metabolic panel (01/31/2024 3:21 AM EDT) Sodium 142 136 - 145 mmol/L 01/31/2024 4:[address] [facility] Potassium 3.9 3.5 - 5.1 mmol/L 01/31/2024 4:[address] [facility] Chloride 107 98 - 107 mmol/L 01/31/2024 4:[address] [facility] Carbon Dioxide 25.4 22.0 - 29.0 mmol/L 01/31/2024 4:[address] [facility] Anion Gap 10 3 - 20 mmol/L 01/31/2024 4:[address] [facility] Glucose 105(H) 70 - 99 mg/dL 01/31/2024 4:[address] [facility] BUN 10.3 8.0 - 23.0 mg/dL 01/31/2024 4:[address] [facility] Creatinine 0.59 0.51 - 0.95 mg/dL 01/31/2024 4:[address] [facility] BUN/Creatinine Ratio 17.5 01/31/2024 4:[address] [facility] Calcium 8.9 8.8 - 10.2 mg/dL 01/31/2024 4:[address] [facility] eGFR 95.9 mL/min/{1. 73_m2} 01/31/2024 4:[address] [facility] Comment: GFR calculated based on CKD-EPI 2020 [...] blood specimen / Unknown Venipuncture / Unknown 01/31/2024 3:21 AM EDT 01/31/2024 3:51 AM EDT Debra Mcmahan MD LAB BLOOD ORDERABLES [address] [address], [place] [phone] * CK (01/31/2024 3:21 AM EDT) Creatine Kinase 47 26 - 192 U/L 01/31/2024 4:[address] [facility] Blood Venous blood specimen / Unknown Venipuncture / Unknown 01/31/2024 3:21 AM EDT 01/31/2024 3:51 AM EDT Debra Mcmahan MD LAB BLOOD ORDERABLES Performing Organization Address [facility]/ZIP Co de Phone Number [address] [address], [place] [phone] * Extra Green Top (01/30/2024 9:57 PM EDT) Pathologist [facility] Extra Tube Hold for add-ons. 01/31/2024 5:[address] [facility] Comment:Auto resulted. Blood Venous blood specimen / Unknown Venipuncture / Unknown 01/30/2024 9:57 PM EDT 01/30/2024 10:23 PM EDT Addie Montgomery MD LAB BLOOD ORDERABLES Performing Organization Address [facility]/ZIP Co de Phone Number [address] [address], [place] [phone] * Troponin T Quant High Sensitivity 3 Hour (01/30/2024 9:57 PM EDT) Troponin T, High Sensitivity 6 <=14 ng/L 01/30/2024 10:[address] [facility] Blood Venous blood specimen / Unknown Venipuncture / Unknown 01/30/2024 9:57 PM EDT 01/30/2024 10:22 PM EDT Rindy Nong PA-C LAB BLOOD ORDERABLES [address] [address], * Troponin T Quant High Sensitivity 1 Hour (01/30/2024 7:53 PM EDT) Troponin T, High Sensitivity <6 <=14 ng/L 01/30/2024 8:[address] [facility] Blood Venous blood specimen / Unknown Venipuncture / Unknown 01/30/2024 7:53 PM EDT 01/30/2024 7:58 PM EDT Radha Nasima PA-C LAB BLOOD ORDERABLES Performing Organization Address City/[facility]/ZIP Co de Phone Number [address] [address], * Urinalysis with reflex microscopic and reflex culture (01/30/2024 7:51 PM EDT) Color, Urine Colorless Colorless, Dark Yellow, Light Yellow, Yellow, Light Red 01/30/2024 8:[address] [facility] Clarity, Urine Clear Clear 01/30/2024 8:[address] [facility] Leukocyte Esterase, Urine Negative Negative, Color Interference 01/30/2024 8:[address] [facility] Nitrite, Urine Negative Negative, Color Interference 01/30/2024 8:[address] [facility] Protein, Qual, Urine Negative Negative, Color Interference 01/30/2024 8:[address] [facility] pH, Urine 6.0 5.0 - 8.0 01/30/2024 8:[address] [facility] [facility] Blood, Urine Negative Negative, Color Interference 01/30/2024 8:[address] [facility] Specific [place], Urine 1.005 1.005 - 1.030 01/30/2024 8:[address] [facility] Ketones, Urine Negative Negative 01/30/2024 8:[address] [facility] Bilirubin, Urine Negative Negative, Color Interference 01/30/2024 8:[address] [facility] Glucose, Qual, Urine Negative Negative, Trace, Color Interference 01/30/2024 8:[address] [facility] Urine Urine specimen obtained by clean catch procedure / Unknown Non-blood Collection / Unknown 01/30/2024 7:51 PM EDT 01/30/2024 7:59 PM EDT Radha Del Real PA-C LAB URINE ORDERABLES Performing Organization Address [facility]/State/ZIP Co de Phone Number [place] [phone], * ECG 12 lead (01/30/2024 6:49 PM EDT) 01/30/2024 6:49 PM EDT Narrative AH EPIPHANY - 02/01/2024 1:46 AM EDT ? [facility] ?og ? Test Date: ?2024-01-30 Pat Name: ? BRANDON SCHMIDTCE ?Department: ?? [id number] ?Room: ? SSU07 Gender: ? Female ? 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 [id number] : ?1950 ? Requested By: RADHA DEL ERAL Order Number: [id number] ? Reading : ?? 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 Measurements Intervals ?[place] ? Rate: ? 71 ? P: ?45 CO: ? 164 ?QRS: ?72 QRSD: ? 85 ? T: ?20 QT: ? 398 ? QTc: ?421 ? Interpretive Statements SINUS RHYTHM Compared to ECG 01/17/2024 18:19:43 Sinus arrhythmia no longer present Rate of 71. Normal axis. No STEMI Prelim by Addie Montgomery on 01-30-2024 19:02:05 EDT Electronically Signed On 02-01-2024 1:46:19 EDT by WING BRIDGER PADRON Procedure Note Wing Bridger Padron MD - 02/01/2024 [facility] Test Date: 2024-01-30 Pat Name: BRANDON ESPANA Department: [id number] Room: [facility] Gender: Female [employer]: [id number] : 1950 Requested By: RADHA DEL REAL Order Number: [id number] Reading MD: WING BRIDGER PADRON Measurements Intervals [place] Rate: 71 P: 45 CO: 164 QRS: 72 QRSD: 85 T: 20 QT: 398 QTc: 421 Interpretive Statements SINUS RHYTHM Compared to ECG 01/17/2024 18:19:43 Sinus arrhythmia no longer present Rate of 71. Normal axis. No STEMI Prelim by Addie Montgomery on 01-30-2024 19:02:05 EDT Electronically Signed On 02-01-2024 1:46:19 EDT by WING BRIDGER PADRON Radha Del Real PA-C ECG ORDERABLES [facility] EP[facility]ANY * XR Chest 1 View (01/30/2024 6:42 PM EDT) Anatomical Region Laterality Modality Chest N/A Digital Radiogra phy Impressions 01/31/2024 2:11 AM EDT No acute cardiopulmonary pathology. Created by: Galindo Martinez Signed by: Galindo Martinez Signed on: 01/31/2024 2:11 EDT Location: [id number] ?? Narrative 01/31/2024 2:11 AM EDT ??EXAM: XR CHEST 1 VIEW INDICATION: Syncope COMPARISON: None FINDINGS: LUNGS/PLEURA: No focal consolidation. ?? PNEUMOTHORAX: None. HEART/MEDIASTINUM: Hiatal hernia. Aortic atherosclerotic vascular calcifications. SUPPORT DEVICES: None. OSSEOUS STRUCTURES: No acute fracture or destructive lesion. ADDITIONAL FINDINGS: None. Procedure Note Galindo Martinez MD - 01/31/2024 EXAM: XR CHEST 1 VIEW INDICATION: Syncope COMPARISON: None FINDINGS: LUNGS/PLEURA: No focal consolidation. PNEUMOTHORAX: None. HEART/MEDIASTINUM: Hiatal hernia. Aortic atherosclerotic vascularcalcifications. SUPPORT DEVICES: None. OSSEOUS STRUCTURES: No acute fracture or destructive lesion. ADDITIONAL FINDINGS: None. IMPRESSION: No acute cardiopulmonary pathology. Created by: Galindo Martinez Signed by: Galindo Martinez Signed on: 01/31/2024 2:11 EDT Location: [place] [address] Debra Mcmahan MD IMG XR PROCEDURES * Respiratory panel (01/30/2024 6:34 PM EDT) Adenovirus, PCR Not Detected Not Detected. BIOFIRE RESPIRATORY PANEL 2.1_BIOFIRE DIAGNOSTICS,L LC_EUA 01/30/2024 7:[address] [facility] SARS COV2 COVID19 PCR Not Detected Not Detected. BIOFIRE RESPIRATORY PANEL 2.1_BIOFIRE DIAGNOSTICS,L LC_EUA 01/30/2024 7:[address] [facility] Comment:This assay is intend ed for the detection of SARS-CoV-2 (Coronavirus 2019) by PCR on samples collected on a nasopharyngeal swab. This assay is not indicated for evaluating clinical response and should not be used as test of cure.??This assay is intended to be used along with clinical and epidemiological evaluation of patients as part of the diagnosis for SARS-CoV-2, following the current CDC guidelines.??This test IS NOT able to identify coronavirus other than the SARS-CoV-2 or other respiratory viruses. This test should be ordered accordingly with the current CDC guidelines and in consultation with Infection Prevention or the [facility] if required.?? Coronavirus HKU1 PCR Not Detected Not Detected. Negative BIOFIRE RESPIRATORY PANEL 2.1_BIOFIRE DIAGNOSTICS,L LC_EUA 01/30/2024 7:[address] [facility] Coronavirus NL63 PCR Not Detected Not Detected, Negative BIOFIRE RESPIRATORY PANEL 2.1_BIOFIRE DIAGNOSTICS,L LC_EUA 01/30/2024 7:[address] [facility] Coronavirus 229E PCR Not Detected Not Detected, Negative BIOFIRE RESPIRATORY PANEL 2.1_BIOFIRE DIAGNOSTICS,L LC_EUA 01/30/2024 7:[address] [facility] Coronavirus OC43 PCR Not Detected Not Detected, Negative BIOFIRE RESPIRATORY PANEL 2.1_BIOFIRE DIAGNOSTICS,L LC_EUA 01/30/2024 7:[address] [facility] Comment:The Coronavirus OC43 assay may cross-react with Coronavirus HKU1. As a result, when both HKU1 and OC43 are detected in the same patient specimen, the result may be due to assay cross-reactivity. A co-infection with these two viruses is also possible. Metapneumovirus PCR Not Detected Not Detected. Negative BIOFIRE RESPIRATORY PANEL 2.1_BIOFIRE DIAGNOSTICS,L LC_EUA 01/30/2024 7:[address] [facility] Rhinovirus/Entero virus PCR Not Detected Not Detected. Negative BIOFIRE RESPIRATORY PANEL 2.1_BIOFIRE DIAGNOSTICS,L LC_EUA 01/30/2024 7:[address] [facility] Influenza A PCR Not Detected Not Detected. Negative BIOFIRE RESPIRATORY PANEL 2.1_BIOFIRE DIAGNOSTICS,L LC_EUA 01/30/2024 7:[address] [facility] Influenza A H1 PCR Not Detected Not Detected. Negative BIOFIRE RESPIRATORY PANEL 2.1_BIOFIRE DIAGNOSTICS,L LC_EUA 01/30/2024 7:[address] [facility] Influenza A H1 2009 PCR Not Detected Not Detected. Negative BIOFIRE RESPIRATORY PANEL 2.1_BIOFIRE DIAGNOSTICS,L LC_EUA 01/30/2024 7:[address] [facility] Influenza A H3 PCR Not Detected Not Detected. Negative BIOFIRE RESPIRATORY PANEL 2.1_BIOFIRE DIAGNOSTICS,L LC_EUA 01/30/2024 7:[address] [facility] Influenza B, PCR Not Detected Not Detected. Negative BIOFIRE RESPIRATORY PANEL 2.1_BIOFIRE DIAGNOSTICS,L LC_EUA 01/30/2024 7:[address] [facility] Parainfluenza Virus 1, PCR Not Detected Not Detected. Negative BIOFIRE RESPIRATORY PANEL 2.1_BIOFIRE DIAGNOSTICS,L LC_EUA 01/30/2024 7:[address] [facility] Parainfluenza Virus 2, PCR Not Detected Not Detected. Negative BIOFIRE RESPIRATORY PANEL 2.1_BIOFIRE DIAGNOSTICS,L LC_EUA 01/30/2024 7:[address] [facility] Parainfluenza Virus 3, PCR Not Detected Not Detected. Negative BIOFIRE RESPIRATORY PANEL 2.1_BIOFIRE DIAGNOSTICS,L LC_EUA 01/30/2024 7:[address] [facility] Parainfluenza Virus 4, PCR Not Detected Not Detected. Negative BIOFIRE RESPIRATORY PANEL 2.1_BIOFIRE DIAGNOSTICS,L LC_EUA 01/30/2024 7:[address] [facility] RSV PCR Not Detected Not Detected. Negative BIOFIRE RESPIRATORY PANEL 2.1_BIOFIRE DIAGNOSTICS,L LC_EUA 01/30/2024 7:[address] [facility] Bordetella pertussis PCR Not Detected Not Detected. Negative BIOFIRE RESPIRATORY PANEL 2.1_BIOFIRE DIAGNOSTICS,L LC_EUA 01/30/2024 7:[address] [facility] Chlamydia Pneumoniae PCR Not Detected Not Detected. Negative BIOFIRE RESPIRATORY PANEL 2.1_BIOFIRE DIAGNOSTICS,L LC_EUA 01/30/2024 7:[address] [facility] Mycoplasma pneumoniae PCR Not Detected Not Detected. Negative BIOFIRE RESPIRATORY PANEL 2.1_BIOFIRE DIAGNOSTICS,L LC_EUA 01/30/2024 7:[address] [facility] Bordetella parapertussis PCR Not Detected Not Detected. Negative BIOFIRE RESPIRATORY PANEL 2.1_BIOFIRE DIAGNOSTICS,L LC_EUA 01/30/2024 7:[address] [facility] Swab Nasopharyngeal structure / Unknown 01/30/2024 6:34 PM EDT 01/30/2024 6:34 PM EDT Radha Del Real PA-C LAB MICROBIOLOGY [place] [address], * Troponin T Quant High Sensitivity Initial (01/30/2024 6:34 PM EDT) Troponin T, High Sensitivity <6 <=14 ng/L 01/30/2024 6:[address] [facility] Blood Venous blood specimen / Unknown 01/30/2024 6:34 PM EDT 01/30/2024 6:34 PM EDT Radha Del Real PA-C LAB BLOOD ORDERABLES Performing Organization Address [facility]/ZIP Co de Phone Number [address] [phone], * PT and PTT Panel (01/30/2024 6:34 PM EDT) Prothrombin Time 14.4 11.8 - 14.6 s 01/30/2024 6:[address] [facility] INR 1.07 01/30/2024 6:[address] [facility] Comment:Therapeutic Range 2. 0 to 3.0 APTT 25.9 22.2 - 36.7 s 01/30/2024 6:[address] [facility] Blood Venous blood specimen / Unknown 01/30/2024 6:34 PM EDT 01/30/2024 6:34 PM EDT Radha Del Real PA-C LAB BLOOD ORDERABLES Performing Organization Address [facility] Co de Phone Number [address] [phone], * Magnesium (01/30/2024 6:34 PM EDT) Magnesium 1.85 1.60 - 2.40 mg/dL 01/30/2024 6:[address] [facility] Blood Venous blood specimen / Unknown 01/30/2024 6:34 PM EDT 01/30/2024 6:34 PM EDT Radha Del Real PA-C LAB BLOOD ORDERABLES Performing Organization Address City/[facility]/ZIP Co de Phone Number [address] [place] [address], * (ABNORMAL) Comprehensive metabolic panel (01/30/2024 6:34 PM EDT) [facility] Sodium 139 136 - 145 mmol/L 01/30/2024 6:[address] [facility] Potassium 3.8 3.5 - 5.1 mmol/L 01/30/2024 6:[address] [facility] Chloride 101 98 - 107 mmol/L 01/30/2024 6:[address] [facility] Carbon Dioxide 26.3 22.0 - 29.0 mmol/L 01/30/2024 6:[address] [facility] Anion Gap 12 3 - 20 mmol/L 01/30/2024 6:[address] [facility] BUN 12.6 8.0 - 23.0 mg/dL 01/30/2024 6:[address] [facility] Creatinine 0.72 0.51 - 0.95 mg/dL 01/30/2024 6:[address] [facility] BUN/Creatinine Ratio 17.5 01/30/2024 6:[address] [facility] Glucose 177(H) 70 - 99 mg/dL 01/30/2024 6:[address] [facility] Calcium 9.3 8.8 - 10.2 mg/dL 01/30/2024 6:[address] [facility] AST 18 10 - 35 U/L 01/30/2024 6:[address] [facility] ALT 8(L) 10 - 35 U/L 01/30/2024 6:[address] [facility] Alkaline Phosphatase 85 35 - 104 U/L 01/30/2024 6:[address] [facility] Protein, Total 6.6 6.4 - 8.3 g/dL 01/30/2024 6:[address] [facility] Albumin 3.84 3.50 - 5.20 g/dL 01/30/2024 6:[address] [facility] Globulin 2.8 g/dL 01/30/2024 6:[address] [facility] A/G Ratio 1.4 01/30/2024 6:[address] [facility] Bilirubin, Total 0.45 <=1.00 mg/dL 01/30/2024 6:[address] [facility] eGFR 89.0 mL/min/{1 .73_m2} 01/30/2024 6:[address] [facility] Comment: GFR calculated based on CKD-EPI 2020 [...] m2 Blood Venous blood specimen / Unknown 01/30/2024 6:34 PM EDT 01/30/2024 6:34 PM EDT Radha Del Real PA-C LAB BLOOD ORDERABLES [address] [address], * CBC Auto Diff, Reflex Manual Diff if Indicated (01/30/2024 6:34 PM EDT) WBC 8.76 5.40 - 10.80 10*3/uL 01/30/2024 6:[address] [facility] RBC 4.25 3.79 - 5.19 10*6/uL 01/30/2024 6:[address] [facility] Hemoglobin 12.5 11.2 - 15.7 g/dL 01/30/2024 6:[address] [facility] Hematocrit 38.2 34.1 - 44.9 % 01/30/2024 6:[address] [facility] MCV 89.9 83.7 - 99.5 fL 01/30/2024 6:[address] [facility] MCH 29.4 27.6 - 33.1 pg 01/30/2024 6:[address] [facility] MCHC 32.7 31.3 - 34.9 g/dL 01/30/2024 6:[address] [facility] Platelet Count 298 126 - 432 10*3/uL 01/30/2024 6:[address] [facility] MPV 9.8 9.2 - 12.2 fL 01/30/2024 6:[address] [facility] Neutrophils % 67.0 42.7 - 77.1 % 01/30/2024 6:[address] [facility] Lymphocytes % 22.1 12.1 - 45.3 % 01/30/2024 6:[address] [facility] Monocytes % 8.2 4.4 - 12.5 % 01/30/2024 6:[address] [facility] Eosinophils % 1.5 0.0 - 5.6 % 01/30/2024 6:[address] [facility] Basophils % 0.7 0.0 - 1.0 % 01/30/2024 6:[address] [facility] Neutrophils Absolute 5.87 1.40 - 6.80 10*3/uL 01/30/2024 6:[address] [facility] Lymphocytes Absolute 1.94 0.60 - 3.20 10*3/uL 01/30/2024 6:[address] [facility] Monocytes Absolute 0.72 0.20 - 0.90 10*3/uL 01/30/2024 6:[address] [facility] Eosinophils Absolute 0.13 0.00 - 0.60 10*3/uL 01/30/2024 6:[address] [facility] Basophil Absolute 0.06 0.00 - 0.10 10*3/uL 01/30/2024 6:[address] [facility] RDW SD 47.3 38.6 - 50.2 fL 01/30/2024 6:[address] [facility] NRBC % 0.0 0.0 - 0.2 % 01/30/2024 6:[address] [facility] Blood Venous blood specimen / Unknown 01/30/2024 6:34 PM EDT 01/30/2024 6:34 PM EDT Radha Del Real PA-C LAB BLOOD ORDERABLES [address] [address], * CT Head WO IV Contrast (01/30/2024 6:26 PM EDT) Anatomical Region Laterality Modality Head, Neck N/A Computed Tomogra phy Impressions 01/30/2024 8:04 PM EDT No acute finding. Created by: Lamberto Kelley MD Signed by: Lamberto Kelley MD Signed on: 01/30/2024 20:04 EDT Location: [id number] ?? Narrative 01/30/2024 8:04 PM EDT ??EXAM: CT HEAD INDICATION: Syncope and collapse COMPARISON: None TECHNIQUE: Axial 5 mm images in bone and soft tissue algorithm from foramen magnum to vertex without contrast. Coronal and sagittal reformations were obtained. Up-to-date CT equipment and radiation dose reduction techniques were employed. FINDINGS: ?? EXTRAAXIAL SPACE: Ventricles within normal limits. No midline shift. No hemorrhage. Cerebrovascular calcifications. ?? CEREBRUM: Normal mcintosh-white matter differentiation. ??No encephalomalacia. No hemorrhage. ?? CEREBELLUM: Well formed without abnormality. ?? BRAINSTEM: Within normal limits. ?? CALVARIUM & SKULL BASE: Within normal limits. PARANASAL SINUSES: Within normal limits. MASTOIDS/MIDDLE EARS: Within normal limits. ORBITS: Old right lens replacement. Procedure Note Barber Kelley MD - 01/30/2024 EXAM: CT HEAD INDICATION: Syncope and collapse COMPARISON: None TECHNIQUE: Axial 5 mm images in bone and soft tissue algorithm fromforamen magnum to vertex without contrast. Coronal and sagittalreformations were obtained. Up-to-date CT equipment and radiation dosereduction techniques were employed. FINDINGS: EXTRAAXIAL SPACE: Ventricles within normal limits. No midline shift. Nohemorrhage. Cerebrovascular calcifications. CEREBRUM: Normal mcintosh-white matter differentiation. No encephalomalacia.No hemorrhage. CEREBELLUM: Well formed without abnormality. BRAINSTEM: Within normal limits. CALVARIUM & SKULL BASE: Within normal limits. PARANASAL SINUSES: Within normal limits. MASTOIDS/MIDDLE EARS: Within normal limits. ORBITS: Old right lens replacement. IMPRESSION: No acute finding. Created by: Lamberto Kelley MD Signed by: Lamberto Kelley MD Signed on: 01/30/2024 20:04 EDT Location: [place] [address] Radha Del Real PA-C IM CT PROCEDURES documented in this encounter Visit Diagnoses Diagnosis Syncope, unspecified syncope type- Primary Syncope, unspecified syncope type Hypertension, essential Unspecified essential hypertension Gastroesophageal reflux disease Esophageal reflux documented in this encounter Admitting Diagnoses Diagnosis Syncope, unspecified syncope type documented in this encounter Administered Medications Inactive Administered Medications - up to 3 most recent administrations Medication Order MAR Action Action Date Dose Rate Site acetaminophen (Tylenol) 160 MG/5ML solution 650 mg 650 mg, Oral, Every 4 hours PRN, mild pain, Starting on 01/30/24 at 2221, Max dose 4 g per 24 hrs Give PO liquid if preferred or per feeding tube if present. If inadequate response within 60 minutes, contact provider if no further options ordered. acetaminophen (Tylenol) suppository 650 mg 650 mg, Rectal, Every 4 hours PRN, mild pain, Starting on 01/30/24 at 2221, Max dose 4 g per 24 hrs Give CO if unable to administer by PO or feeding tube. If inadequate response within 60 minutes, contact provider if no further options ordered. acetaminophen (Tylenol) tablet 650 mg 650 mg, Oral, Every 4 hours PRN, mild pain, Starting on 01/30/24 at 2221, Max dose 4 g per 24 hrs If inadequate response within 60 minutes, contact provider if no further options ordered. Given 01/31/2024 8:43 AM EDT 650 mg aspirin EC tablet 81 mg 81 mg, Oral, Daily, First dose on 01/31/24 at 0900, Do not crush, chew, or split. Given 01/31/2024 8:37 AM EDT 81 mg atorvastatin (Lipitor) tablet 20 mg 20 mg, Oral, Daily, First dose on 01/31/24 at 0900 Given 01/31/2024 8:37 AM EDT 20 mg enoxaparin (Lovenox) syringe 40 mg 40 mg, Subcutaneous, Every 24 hours scheduled, First dose on 01/31/24 at 0900, Indications: Prophylaxis of Venous Thromboembolism Given 01/31/2024 8:40 AM EDT 40 mg Left Lower Abdomen metoprolol tartrate (Lopressor) tablet 25 mg 25 mg, Oral, 2 times daily, First dose on 01/30/24 at 2225 Given 01/31/2024 8:37 AM EDT 25 mg Given 01/30/2024 11:14 PM EDT 25 mg ondansetron (Zofran) injection 4 mg 4 mg, Intravenous, Every 8 hours PRN, nausea, vomiting, Starting on 01/30/24 at 2221, (First Line Agent). Give IV if unable to take PO. If inadequate response within 60 minutes, proceed to second line agent or contact provider if no further options ordered. ondansetron (Zofran) injection 4 mg 4 mg, Intramuscular, Every 8 hours PRN, nausea, vomiting, Starting on 01/30/24 at 2221, (First Line Agent). Give IM if unable to take PO and does not have IV access. If inadequate response within 60 minutes, proceed to second line agent or contact provider if no further options ordered. ondansetron ODT (Zofran-ODT) disintegrating tablet 4 mg 4 mg, Oral, Every 8 hours PRN, nausea, vomiting, Starting on 01/30/24 at 2221, (First Line Agent). Allow tablet to dissolve on tongue. Do not remove from blister pack until just before administering. If inadequate response within 60 minutes, proceed to second line agent or contact provider if no further options ordered. pantoprazole (Protonix) EC tablet 40 mg 40 mg, Oral, Daily before breakfast, First dose on 01/31/24 at 0730, Do not crush, chew, or split. Given 01/31/2024 6:50 AM EDT 40 mg prochlorperazine (Compazine) injection 10 mg 10 mg, Intravenous, Every 6 hours PRN, nausea, vomiting, Starting on 01/30/24 at 2221, (Second Line Agent). Give IV if unable to take PO. If inadequate response within 60 minutes, contact provider if no further options ordered. prochlorperazine (Compazine) injection 10 mg 10 mg, Intramuscular, Every 6 hours PRN, nausea, vomiting, Starting on 01/30/24 at 2221, (Second Line Agent). Give IM if unable to take PO and does not have IV access. If inadequate response within 60 minutes, contact provider if no further options ordered. prochlorperazine (Compazine) suppository 25 mg 25 mg, Rectal, Every 12 hours PRN, nausea, vomiting, Starting on 01/30/24 at 2221, (Second Line Agent). Give CO if unable to take PO or receive by IM injection. If inadequate response within 60 minutes, contact provider if no further options ordered. prochlorperazine (Compazine) tablet 10 mg 10 mg, Oral, Every 6 hours PRN, nausea, vomiting, Starting on 01/30/24 at 2221, (Second Line Agent). If inadequate response within 60 minutes, contact provider if no further options ordered. sodium chloride 0.9 % flush Intravenous, Every 12 hours, First dose on 01/30/24 at 2225, Per unit routine. Given 01/30/2024 11:15 PM EDT 10 m L sodium chloride 0.9 % flush Intravenous, As needed, line care, Starting on 01/30/24 at 2221, Per unit routine. documented in this encounter Active and Recently Administered Medications Times are shown in EDT. Scheduled Medication Order 01/29/2024 01/30/202401/31/2024 aspirin EC tablet 81 mg 81 mg, Oral, Daily, First dose on 01/31/24 at 0900, Do not crush, chew, or split. 0837 (Given - Provid er: Ramón Faustin RN) atorvastatin (Lipitor) tablet 20 mg 20 mg, Oral, Daily, First dose on 01/31/24 at 0900 0837 (Given - Provid er: Ramón Faustin RN) enoxaparin (Lovenox) syringe 40 mg 40 mg, Subcutaneous, Every 24 hours scheduled, First dose on 01/31/24 at 0900, Indications: Prophylaxis of Venous Thromboembolism 0840 (Given - Provid er: Ramón Faustin RN) metoprolol tartrate (Lopressor) tablet 25 mg 25 mg, Oral, 2 times daily, First dose on 01/30/24 at 2225 2314 (Given - Provider: Kathy Subramanian RN) 0837 (Given - Provider: Ramón Faustin RN) pantoprazole (Protonix) EC tablet 40 mg 40 mg, Oral, Daily before breakfast, First dose on 01/31/24 at 0730, Do not crush, chew, or split. 0650 (Given - Provid er: Franck Artis RN) sodium chloride 0.9 % flush(Linked Group 1) Intravenous, Every 12 hours, First dose on 01/30/24 at 2225, Per unit routine. 2315 (Given - Provider: Kathy Subramanian RN) 1025 (Not Given - Provider: Ramón Faustin RN - Reason: Other - Comment: given earlier) PRN Medication Order 01/29/2024 01/30/2024 01/31/2024 acetaminophen (Tylenol) 160 MG/5ML solution 650 mg(Linked Group 2) 650 mg, Oral, Every 4 hours PRN, mild pain, Starting on 01/30/24 at 2221, Max dose 4 g per 24 hrs Give PO liquid if preferred or per feeding tube if present. If inadequate response within 60 minutes, contact provider if no further options ordered. 0843 (See Alternativ e - Provider: Ramón Faustin RN) acetaminophen (Tylenol) suppository 650 mg(Linked Group 2) 650 mg, Rectal, Every 4 hours PRN, mild pain, Starting on 01/30/24 at 2221, Max dose 4 g per 24 hrs Give CO if unable to administer by PO or feeding tube. If inadequate response within 60 minutes, contact provider if no further options ordered. 0843 (See Alternativ e - Provider: Ramón Faustin RN) acetaminophen (Tylenol) tablet 650 mg(Linked Group 2) 650 mg, Oral, Every 4 hours PRN, mild pain, Starting on 01/30/24 at 2221, Max dose 4 g per 24 hrs If inadequate response within 60 minutes, contact provider if no further options ordered. 0843 (Given - Provid er: Ramón Faustin RN) ALPRAZolam (Xanax) tablet 0.5 mg 0.5 mg, Oral, 3 times daily PRN, anxiety, Starting on 01/30/24 at 2221 bisacodyl (Dulcolax) EC tablet 10 mg 10 mg, Oral, Daily PRN, constipation, Starting on 01/30/24 at 2221, (First Line Agent) for treatment of constipation - give scheduled if no bowel movement in past 24 hrs. Do not crush, chew, or split. diphenhydrAMINE (Benadryl) capsule 25 mg 25 mg, Oral, Nightly PRN, sleep, Starting on 01/30/24 at 2221 glycerin suppository 2 g 2 g (1 suppository), Rectal, Daily PRN, constipation, Starting on 01/30/24 at 2221, (Second line agent) for treatment of constipation - give scheduled (in addition to first line agent) if no bowel movement in past 48 hours magnesium oxide (Mag-Ox) tablet 400 mg 400 mg, Oral, Every 12 hours PRN, For Serum Magnesium Level 1.5 - 1.9 mg/dL, Starting on 01/30/24 at 2221, Order/obtain Serum Magnesium Level in AM. For Serum Magnesium Level 1.5 - 1.9 mg/dL, give 400 mg PO q12h for 2 doses. magnesium sulfate IVPB 2 g 2 g, Intravenous, at 12.5 mL/hr, Administer over 4 Hours, Every 4 hours PRN, For Serum Magnesium Level 1.5 - 1.9 mg/dL AND unable to take PO, Starting on 7/13/24 at 2221, Obtain/order Serum Magnesium level 4 hours after infusion complete and in AM. If Serum Magnesium Level 1.5 - 1.9 mg/dL AND unable to take PO, give 2 g IV ONCE. magnesium sulfate IVPB 4 g 4 g, Intravenous, at 12.5 mL/hr, Administer over 8 Hours, Every 8 hours PRN, For Serum Magnesium Level 1.4 mg/dL or less, Starting on 01/30/24 at 2221, Obtain/order Serum Magnesium level 4 hours after infusion complete and in AM. If Serum Magnesium Level 1.4 mg/dL or less, give 4 g IV ONCE. If Serum Magnesium Level less than 1.1 mg/dL after replacement, notify provider. morphine injection 1 mg 1 mg, Intravenous, Every 3 hours PRN, moderate pain, Starting on 01/30/24 at 2221, If inadequate response within 30 mins, contact provider if no further options ordered. ondansetron (Zofran) injection 4 mg(Linked Group 3) 4 mg, Intravenous, Every 8 hours PRN, nausea, vomiting, Starting on 01/30/24 at 2221, (First Line Agent). Give IV if unable to take PO. If inadequate response within 60 minutes, proceed to second line agent or contact provider if no further options ordered. ondansetron (Zofran) injection 4 mg(Linked Group 3) 4 mg, Intramuscular, Every 8 hours PRN, nausea, vomiting, Starting on 01/30/24 at 2221, (First Line Agent). Give IM if unable to take PO and does not have IV access. If inadequate response within 60 minutes, proceed to second line agent or contact provider if no further options ordered. ondansetron ODT (Zofran-ODT) disintegrating tablet 4 mg(Linked Group 3) 4 mg, Oral, Every 8 hours PRN, nausea, vomiting, Starting on 01/30/24 at 2221, (First Line Agent). Allow tablet to dissolve on tongue. Do not remove from blister pack until just before administering. If inadequate response within 60 minutes, proceed to second line agent or contact provider if no further options ordered. potassium bicarbonate-citric acid (Effer-K) 20 MEQ effervescent tablet 20 mEq 20 mEq, Oral, Every 1 hour PRN, For Serum Potassium Level less than 3.5 mEq/L, Starting on 01/30/24 at 2221, If Serum Potassium Level is 3.1 - 3.4 mEq/L, give 20 mEq each hour for 2 doses. Obtain/order Serum Potassium Level in AM. If Serum Potassium Level is 3 mEq/L or less give 20 mEq each hour for 2 doses. Obtain/order Serum Potassium Level 2 hours after administration and in AM. If Serum Potassium is 3 mEq/L or less OR greater than 5.5 mEq/L after replacement, notify provider Do NOT Crush. Dissolve flavored tablets completely in 3 to 4 ounces of cold or ice water. Unflavored tablets may be dissolved in 3 to 4 ounces of cold juice. May further dilute if GI adverse effects occur. potassium chloride IVPB 20 mEq 20 mEq, Intravenous, at 50 mL/hr, Administer over 2 Hours, Every 2 hour PRN, , For serum potassium level less than 3.5 mEq/L, AND unable to take PO, AND/OR symptomatic hypokalemia (new onset cardiac arrhythmias or muscle pain), and notify provider., Starting on 01/30/24 at 2221, Obtain/order Serum Potassium level 1 hour after second infusion complete and in AM. If Serum Potassium Level is 3.1 - 3.4 mEq/L, give 20 mEq IV x 2 doses each over 2 hours. If Serum Potassium Level is 3 mEq/L or less give 20 mEq IV x 2 doses each over 2 hours, and notify provider. If Serum Potassium is 3 mEq/L or less OR greater than 5.5 mEq/L after replacement, notify provider. For Central line - max administration rate is 20 mEq/hr. For Peripheral line - max administration rate is 10 mEq/hr. prochlorperazine (Compazine) injection 10 mg(Linked Group 4) 10 mg, Intravenous, Every 6 hours PRN, nausea, vomiting, Starting on 01/30/24 at 2221, (Second Line Agent). Give IV if unable to take PO. If inadequate response within 60 minutes, contact provider if no further options ordered. prochlorperazine (Compazine) injection 10 mg(Linked Group 4) 10 mg, Intramuscular, Every 6 hours PRN, nausea, vomiting, Starting on 01/30/24 at 2221, (Second Line Agent). Give IM if unable to take PO and does not have IV access. If inadequate response within 60 minutes, contact provider if no further options ordered. prochlorperazine (Compazine) suppository 25 mg(Linked Group 4) 25 mg, Rectal, Every 12 hours PRN, nausea, vomiting, Starting on 01/30/24 at 2221, (Second Line Agent). Give CO if unable to take PO or receive by IM injection. If inadequate response within 60 minutes, contact provider if no further options ordered. prochlorperazine (Compazine) tablet 10 mg(Linked Group 4) 10 mg, Oral, Every 6 hours PRN, nausea, vomiting, Starting on 01/30/24 at 2221, (Second Line Agent). If inadequate response within 60 minutes, contact provider if no further options ordered. senna-docusate (Nasrin-Colace) 8.6-50 MG per tablet 2 tablet 2 tablet, Oral, Nightly PRN, constipation, Starting on 01/30/24 at 2221, Bowel Regimen - for prevention of constipation. sodium chloride 0.9 % flush(Linked Group 1) Intravenous, As needed, line care, Starting on 01/30/24 at 2221, Per unit routine. Linked Groups Order Group 1: Insert peripheral IV (COMPLETED) STAT, Once, On 01/30/24 at 2222, For 1 occurrence And Saline lock IV (CANCELED) Routine, Once, On 01/30/24 at 2222, For 1 occurrence And sodium chloride 0.9 % flushJump to med Intravenous, Every 12 hours, First dose on 01/30/24 at 2225, Per unit routine. And sodium chloride 0.9 % flushJump to med Intravenous, As needed, line care, Starting on 01/30/24 at 2221, Per unit routine. Group 2: acetaminophen (Tylenol) tablet 650 mgJump to med 650 mg, Oral, Every 4 hours PRN, mild pain, Starting on 01/30/24 at 2221, Max dose 4 g per 24 hrs If inadequate response within 60 minutes, contact provider if no further options ordered. Or acetaminophen (Tylenol) 160 MG/5ML solution 650 mgJump to med 650 mg, Oral, Every 4 hours PRN, mild pain, Starting on 01/30/24 at 2221, Max dose 4 g per 24 hrs Give PO liquid if preferred or per feeding tube if present. If inadequate response within 60 minutes, contact provider if no further options ordered. Or acetaminophen (Tylenol) suppository 650 mgJump to med 650 mg, Rectal, Every 4 hours PRN, mild pain, Starting on 01/30/24 at 2221, Max dose 4 g per 24 hrs Give CO if unable to administer by PO or feeding tube. If inadequate response within 60 minutes, contact provider if no further options ordered. Group 3: ondansetron ODT (Zofran-ODT) disintegrating tablet 4 mgJump to med 4 mg, Oral, Every 8 hours PRN, nausea, vomiting, Starting on 01/30/24 at 2221, (First Line Agent). Allow tablet to dissolve on tongue. Do not remove from blister pack until just before administering. If inadequate response within 60 minutes, proceed to second line agent or contact provider if no further options ordered. Or ondansetron (Zofran) injection 4 mgJump to med 4 mg, Intravenous, Every 8 hours PRN, nausea, vomiting, Starting on 01/30/24 at 2221, (First Line Agent). Give IV if unable to take PO. If inadequate response within 60 minutes, proceed to second line agent or contact provider if no further options ordered. Or ondansetron (Zofran) injection 4 mgJump to med 4 mg, Intramuscular, Every 8 hours PRN, nausea, vomiting, Starting on 01/30/24 at 2221, (First Line Agent). Give IM if unable to take PO and does not have IV access. If inadequate response within 60 minutes, proceed to second line agent or contact provider if no further options ordered. Group 4: prochlorperazine (Compazine) tablet 10 mgJump to med 10 mg, Oral, Every 6 hours PRN, nausea, vomiting, Starting on 01/30/24 at 2221, (Second Line Agent). If inadequate response within 60 minutes, contact provider if no further options ordered. Or prochlorperazine (Compazine) injection 10 mgJump to med 10 mg, Intravenous, Every 6 hours PRN, nausea, vomiting, Starting on 01/30/24 at 2221, (Second Line Agent). Give IV if unable to take PO. If inadequate response within 60 minutes, contact provider if no further options ordered. Or prochlorperazine (Compazine) injection 10 mgJump to med 10 mg, Intramuscular, Every 6 hours PRN, nausea, vomiting, Starting on 01/30/24 at 2221, (Second Line Agent). Give IM if unable to take PO and does not have IV access. If inadequate response within 60 minutes, contact provider if no further options ordered. Or prochlorperazine (Compazine) suppository 25 mgJump to med 25 mg, Rectal, Every 12 hours PRN, nausea, vomiting, Starting on 01/30/24 at 2221, (Second Line Agent). Give CO if unable to take PO or receive by IM injection. If inadequate response within 60 minutes, contact provider if no further options ordered. documented in this encounter Additional Health Concerns Infection Onset Date Last Indicated Resolved Time Respiratory Rule-Out 01/30/2024 01/30/2024 024 7:38 PM EDT Assessment Noted Time A fall risk assessment has been complete d for the patient 03/06/2023 8:14 AM EDT documented as of this encounter Care Teams Manager Studio Relationship Specialty Start Date End Date Errol Underwood MD PCP - General Family Medicine 02/05/22 Errol Underwood MD [address] [place] [address] PCP - W65+ ACO REACH Attributed Provider 01/18/24 documented as of this encounter
--- OUTSIDE RECORDS SUMMARY | 2024-07-17 10:28 | XMS_ITS | Encounter Summary ---
[facility] Address [address] [place] [address] Care Team Providers Care Stonemason Helper Name Role Phone Errol Underwood MD Primary Care Provider [phone] Errol Underwood MD Unavailable [phone] Source Comments Please be aware that You and/or your organization are solely responsible for the use, security, privacy, and any decisions made with any information you receive from [employer].[facility] Encounter Details [...] often do you attend chur ch or mosque services? Never 03/06/2023 Do you belong to any clubs o r organizations such as lutheran groups, unions, fraternal or athletic groups, or [...] Recorded Patient Health Questionnaire-2 Score 0 03/06/2023 [facility] Occupat ional Health - Occupational Stress [...] or rent on time? 2 03/06/2023 [facility] Places Lived Last Flowsheet Value Most [...] Description 09/06/2024 11:00 AM EST Office Visit [facility] Well 65+ at [place] [address] [place] [phone] Errol Underwood MD [address] [place] [address] 03/16/2025 11:15 AM EDT Office Visit [facility] at [place] [address] [place] [address] Samuel Winslow MD [address] [place] [address] documented as of this encounter Visit Diagnoses Not on filedocumented in this encounter Additional Health Concerns Assessment Noted Time A fall risk assessment has been complete d for the patient 03/06/2023 8:14 AM EDT documented as of this encounter Care Teams Stonemason Helper Relationship Specialty Start Date End Date Errol Underwood MD PCP - General Family Medicine 02/05/22 Errol Underwood MD [address] [place] [address] PCP - W65+ ACO REACH Attributed Provider 01/18/24 documented as of this encounter
--- OUTSIDE RECORDS SUMMARY | 2024-07-17 10:28 | XMS_ITS | Encounter Summary ---
Author Organization [facility] Address [address] [place] [address] Care Team Providers Care Gun Barrel Finisher Name Role Phone Errol Underwood MD Primary Care Provider Errol Underwood MD Unavailable [phone] Source Comments Please be aware that You and/or your organization are solely responsible for the use, security, privacy, and any decisions made with any information you receive from [employer].[facility] Encounter Details Date Type Department Care Team (Late st Contact Info) Description 11/24/2023 Refill [facility] Well 65+ at [place] [address] [place] [address] Lora Mendoza LPN Anxiety Social History Tobacco Use Types Packs/Day [...] often do you attend chur ch or moravian services? Never 03/06/2023 Do you belong to any clubs o r organizations such as restorationist groups, unions, fraternal or athletic groups, or [...] Recorded Patient Health Questionnaire-2 Score 0 03/06/2023 [facility] of Occupat ional [facility] - Occupational Stress Questionnaire Answer Date Recorded [...] or rent on time? 2 03/06/2023 [facility] Places Lived Last Flowsheet [...] Telephone Encounter - Lora Mendoza LPN - 11/24/2023 11:08 AM EDT Patient requesting refill of alprazolam 0.5 mg tablets to be sent to [facility] #[id number]. Last refill 06/24/23 with 1 refill. Next appointment 03/10/24. documented in this encounter Plan of Treatment Upcoming Encounters Date Type Department Care Team (Late st Contact Info) Description 09/06/2024 11:00 AM EST Office Visit [facility] Well 65+ at [place] [address] [place] [address] Errlo Underwood MD [address] [facility] [place] [address] 03/16/2025 11:15 AM EDT Office Visit [facility] Urology at [place] [address] [place] [phone] Samuel Winslow MD [address] [place] [address] documented as of this encounter Visit Diagnoses Diagnosis Anxiety Anxiety state, unspecified documented in this encounter Additional Health Concerns Assessment Noted Time A fall risk assessment has been complete d for the patient 03/06/2023 8:14 AM EDT documented as of this encounter Care Teams Gun Barrel Finisher Relationship Specialty Start Date End Date Errol Underwood MD PCP - General Family Medicine 02/05/22 Errol Underwood MD [address] [place], [place] [id number] PCP - N-MD ACO REACH Attributed Provider 07/20/23 01/17/24 documented as of this encounter
--- OUTSIDE RECORDS SUMMARY | 2024-07-17 10:28 | XMS_ITS | Encounter Summary ---
Author Organization [facility] Address [address] [place] [address] Care Team Providers Care White Goods Appliance Tech Name Role Phone Errol Underwood MD Primary Care Provider [phone] Errol Underwood MD Unavailable [phone] Source Comments Please be aware that You and/or your organization are solely responsible for the use, security, privacy, and any decisions made with any information you receive from [email or web address] Encounter Details Date Type Department Care Team (Latest Contact Info) Description 03/17/2024 Travel Social History Tobacco Use Types Packs/Day [...] often do you attend chur ch or judaism services? Never 03/06/2023 Do you belong to [...] Recorded Patient Health Questionnaire-2 Score 0 2024 [facility] of Occupat ional Health [...] rent on time? 2 03/06/2023 [facility] Places Lived Last Flowsheet Value Most Recent Result Not on file 03/06/2023 In the last 12 months, was t here a time when you did not have a steady place to sleep or slept in a long term (including now)? 2 03/06/2023 Health Literacy Answer [...] your living situation today? I have a [facility] place to live 01/31/[address] you li ve. Do you have problems with any of the following? None of the above 01/31/2024 [facility] Safety Answer Date Recorded How often does anyone, david chakrabotry family and friends, threaten you with harm? [...] 09/06/2024 11:00 AM EST Office Visit [facility] Well 65+ at [place] [address] [place] [phone] Errol Underwood MD [address] [place] [address] 03/16/2025 11:15 AM EDT Office Visit [facility] at [place] [address] [place] [address] Samuel Winslow MD [address] [place] [address] documented as of this encounter Visit Diagnoses Not on filedocumented in this encounter Additional Health Concerns Assessment Noted Time A fall risk assessment has been complete d for the patient 2024 1:29 PM EDT documented as of this encounter Care Teams White Goods Appliance Tech Relationship Specialty Start Date End Date Errol Underwood MD PCP - General Family Medicine 02/05/22 Errol Underwood MD [address] [place] [address] PCP - W65+ ACO REACH Attributed Provider 01/18/24 documented as of this encounter
--- OUTSIDE RECORDS SUMMARY | 2024-07-17 10:28 | XMS_ITS | Encounter Summary ---
Author Organization [facility] Address [address] [place] [address] Care Team Providers Care Court Bailiff Or Sheriff Name Role Phone Errol Underwood MD Primary Care Provider Errol Underwood MD Unavailable [phone] Source Comments Please be aware that You and/or your organization are solely responsible for the use, security, privacy, and any decisions made with any information you receive from [email or web address].YEOXIN [facility] Reason for Referral * Imaging (Routine) - Closed Specialty Diagnoses / Procedures Referred By Ryley pantoja Referred To Contact Radiology Diagnoses History of nephrolithiasis Procedures US Renal Complete Samuel Winslow MD [address] [place] [address] Referral ID Status Reason Start Date Expiration Date Visits Re quested Visits Authorized [id number] Closed 03/17/2024 07/19/2024 1 1 Reason for Visit * Imaging (Routine) - Closed Specialty Diagnoses / Procedures Referred By Ryley pantoja Referred To Contact Radiology Diagnoses History of nephrolithiasis Procedures US Renal Complete Samuel Winslow MD [address] [place] [address] Referral ID Status Reason Start Date Expiration Date Visits Re quested Visits Authorized [id number] Closed 03/17/2024 07/19/2024 1 1 Encounter Details Date Type Department Care Team (Latest Contact Info) Description 05/13/2024 10:50 AM EDT - 05/13/2024 11:59 PM EDT Hospital Encounter [facility] [address] [place] [address] History of nephrolithiasis Discharge Disposition: Home or Self Care Social [...] week 03/06/2023 How often do you attend [facility] or confucianism services? Never 03/06/2023 Do you belong to [...] Recorded Patient Health Questionnaire-2 Score 0 2024 [facility] of Occupat ional [facility] - Occupational Stress Questionnaire Answer Date [...] in a usp (including now)? 2 03/06/2023 [facility] Literacy Answer Date Recorded How often do you need to hav e someone help you when you read instructions, pamphlets, or other written material from your doctor or pharmacy? Never 01/31/2024 [facility] Food Security Answer Date Recorded Within the past 12 months, t he food you bought just didn't last and you didn't have money to get more. 3 01/31/2024 Within the past 12 months, y ou worried that your food would run out before you got money to buy more. 3 01/31/2024 [facility] Transportation Needs Answer Date Re corded In the past 12 months, has l ack of reliable transportation kept you from medical appointments, meetings, work or from getting things needed for daily living? No 01/31/2024 [facility] Housing Answer Date Recorded What is your living situation today? I have a [facility] place to live 01/31/[address] you li ve. Do you have problems with any of the following? None of the above 01/31/2024 [facility] Safety Answer Date Recorded How often [...] scream or curse at you? 1 01/31/2024 [facility] Utilities Answer Date Recorded In the [...] Visit [facility] Well 65+ at [place] [address] [place] [address] Errol Underwood MD [address] [place] [address] 03/16/2025 11:15 AM EDT Office Visit [facility] [place] [address] [place] [address] Samuel Winslow MD [address] [place] [address] documented as of this encounter Procedures Procedure Name Priority Date/Time Associated Diagnosis Comments US RENAL COMPLETE Routine 05/13/2024 12: 04 PM EDT History of nephrolithiasis documented in this encounter Results * US Renal Complete (05/13/2024 12:04 PM EDT) Anatomical Region Laterality Modality Kidney N/A Ultrasound Impressions 05/16/2024 7:26 PM EDT No sonographically evident calculi. Created by: Vikram Connor Signed by: Vikram Connor Signed on: 05/16/2024 19:26 EDT Location: [place] [address] ?? Narrative 05/16/2024 7:26 PM EDT ??EXAM: [...] No sonographically evident calculi. Created by: Vikram Connro Signed by: Vikram Connor Signed on: 05/16/2024 19:26 EDT Location: [place] [address] Samuel Winslow MD IMG US PROCEDUR ES documented in this encounter Visit Diagnoses Diagnosis History of nephrolithiasis documented in this encounter Additional Health Concerns Assessment Noted Time A fall risk assessment has been complete d for the patient 2024 1:29 PM EDT documented as of this encounter Care Teams Court Bailiff Or Sheriff Relationship Specialty Start Date End Date Errol Underwood MD PCP - General Family Medicine 02/05/22 Errol Underwood MD [address] [place] [id number] PCP - W65+ ACO REACH Attributed Provider 01/18/24 documented as of this encounter
--- OUTSIDE RECORDS SUMMARY | 2024-07-17 10:28 | XMS_ITS | Encounter Summary ---
Author Organization [facility] Address [address] [place] [address] Care Team Providers Care Cmm Technician Name Role Phone Errol Underwood MD Primary Care Provider Errol Underwood MD Unavailable [phone] Source Comments Please be aware that You and/or your organization are solely responsible for the use, security, privacy, and any decisions made with any information you receive from [email or web address].[facility] Reason for Referral * Consultation (Routine) - Closed Specialty Diagnoses / Procedures Referred By Ryley pantoja Referred To Contact Urology Diagnoses Kidney stone on left side Errol Underwood MD [address] [place] [address] Samuel Winslow MD [address] [place] [address] Referral ID Status Reason Start Date Expiration Date V isits Requested Visits Authorized [id number] Closed Specialty Services Required 01/29/2024 01/28/2025 1 1 Encounter Details Date Type Department Care Team (Late st Contact Info) Description 01/29/[address] [facility] Well 65+ at [place] [address] [place] [address] Lora Mendoza LPN Kidney stone on left side (Primary Dx) Social History Tobacco Use Types [...] attend [facility] or taoist services? Never 03/06/2023 Do you belong to [...] Recorded Patient Health Questionnaire-2 Score 0 03/06/2023 [facility] of Occupat ional [facility] - Occupational Stress Questionnaire Answer Date [...] or rent on time? 2 03/06/2023 [facility] Lived Last Flowsheet Value Most [...] 09/06/2024 11:00 AM EST Office Visit [facility] Well 65+ at [place] [address] [place] [address] Errol Underwood MD [address] [place] [address] 03/16/2025 11:15 AM EDT Office Visit [facility] [place] [address] [place] [address] Samuel Winslow MD [address] [place] [address] Scheduled Referrals Name Type Priority Associated Diagnoses Order Schedule Ambulatory referral to Urology Outpatient Referral Routine Kidney stone on left side Expected: 01/29/2024 (Approximate), Expires: 01/28/2025 documented as of this encounter Visit Diagnoses Diagnosis Kidney stone on left side- Primary documented in this encounter Additional Health Concerns Assessment Noted Time A fall risk assessment has been complete d for the patient 03/06/2023 8:14 AM EDT documented as of this encounter Care Teams Cmm Technician Relationship Specialty Start Date End Date Errol Underwood MD PCP - General Family Medicine 02/05/22 Errol Underwood MD [address] [place] [address] PCP - W65+ ACO REACH Attributed Provider 01/18/24 documented as of this encounter
--- OUTSIDE RECORDS SUMMARY | 2024-07-17 10:28 | XMS_ITS | Encounter Summary ---
Author Organization Formerly [facility] Address [address] [place] [address] Care Team Providers Care Roll Weigher Name Role Phone Errol Underwood MD Primary Care Provider [phone] Errol Underwood MD Unavailable [phone] Source Comments Please be aware that You and/or your organization are solely responsible for the use, security, privacy, and any decisions made with any information you receive from [employer] Encounter Details Date Type Department Care Team (Latest Contact Info) Description 2024 Travel Social History Tobacco Use Types Packs/Day [...] often do you attend chur ch or jehovah's witness services? Never 03/06/2023 Do you belong to any clubs o r organizations such as bahai groups, unions, fraternal or athletic groups, or [...] Recorded Patient Health Questionnaire-2 Score 0 2024 [facility] Occupat ional Health - Occupational [...] rent on time? 2 03/06/2023 [facility] Places Lived Last Flowsheet Value Most Recent [...] doctor or pharmacy? Never 01/31/[address] [facility] Food Security Answer Date Recorded Within the past 12 months, t he food you bought just didn't last and you didn't have money to get more. 3 01/31/2024 Within the past 12 months, y ou worried that your food would run out before you got money to buy more. 3 01/31/[address] [facility] Transportation Needs Answer Date Re corded In the past 12 months, has l ack of reliable transportation kept you from medical appointments, meetings, work or from getting things needed for daily living? No 01/31/[address] [facility] Housing Answer Date Recorded What is your living situation today? I have a [facility] place to live 01/31/[address] you li ve. Do you have problems with any of the following? None of the above 01/31/[address] [facility] Safety Answer Date Recorded How [...] curse at you? 1 01/31/[address] [facility] Utilities Answer Date Recorded In [...] Visit [facility] Well 65+ at [place] [address] [place] [address] Errol Underwood MD [address] [place] [address] 03/16/2025 11:15 AM EDT Office Visit [facility] at [place] [address] [place] [address] Samuel Winslow MD [address] [place] [address] documented as of this encounter Visit Diagnoses Not on filedocumented in this encounter Additional Health Concerns Assessment Noted Time A fall risk assessment has been complete d for the patient 2024 1:29 PM EDT documented as of this encounter Care Teams Roll Weigher Relationship Specialty Start Date End Date Errol Underwood MD PCP - General Family Medicine 02/05/22 Errol Underwood MD [address] [place] [address] PCP - W65+ ACO REACH Attributed Provider 01/18/24 documented as of this encounter
--- OUTSIDE RECORDS SUMMARY | 2024-07-17 10:28 | XMS_ITS | Encounter Summary ---
Author Organization [facility] Address [address] [place] [address] Care Team Providers Care Candle Molder Machine Name Role Phone Errol Underwood MD Primary Care Provider Errol Underwood MD Unavailable [phone] Source Comments Please be aware that You and/or your organization are solely responsible for the use, security, privacy, and any decisions made with any information you receive from [employer] Reason for Referral * Imaging (Routine) - Closed Specialty Diagnoses / Procedures Referred By Contdarcy t Referred To Contact Radiology Diagnoses Kidney stone on left side Hydronephrosis of left kidney Procedures US Renal Complete Errol Underwood MD [address] [place] [address] Referral ID Status Reason Start Date Expiration Date Visits Re quested Visits Authorized [id number] Closed 01/22/2024 01/21/2025 1 1 Reason for Visit * Imaging (Routine) - Closed Specialty Diagnoses / Procedures Referred By Contdarcy t Referred To Contact Radiology Diagnoses Kidney stone on left side Hydronephrosis of left kidney Procedures US Renal Complete Errol Underwood MD [address] [place] [address] Referral ID Status Reason Start Date Expiration Date Visits Re quested Visits Authorized [id number] Closed 01/22/2024 01/21/2025 1 1 Encounter Details Date Type Department Care Team (Latest Contact Info) Description 01/25/2024 12:12 PM EDT - 01/25/2024 11:59 PM EDT Hospital Encounter [facility] [place] [facility] [address] [place] [address] Kidney stone on left side; Hydronephrosis of left kidney Discharge Disposition: Home or Self Care Social [...] often do you attend chur ch or rastafari services? Never 03/06/2023 Do you belong to any clubs o r organizations such as rastafarian groups, unions, fraternal or athletic groups, or [...] Recorded Patient Health Questionnaire-2 Score 0 03/06/2023 [facility] Occupat ional Health - [...] for 7 days. 28 capsule 01/17/2024 01/31/2024 HYDROcodone-acetaminophen (Fillmore) 5-325 MG tablet Take 1 tablet by mouth every 6 (six) hours if needed for severe pain (for Acute Pain). 12 tablet 01/17/2024 01/31/2024 ibuprofen 600 MG tablet Take 1 tablet (600 mg total) by mouth every 6 (six) hours. 28 tablet 01/17/2024 01/31/2024 ondansetron ODT (Zofran-ODT) 4 MG disintegrating tabletIndications:Nausea [...] 01/17/2024 01/29/2024 documented as of this encounter Miscellaneous Notes * Result Encounter Note - Errol Underwood MD - 01/25/2024 1:00 PM EDT Kidney not showing any swelling any longer, still appears to have the stone in the same place. I dothink seeing a urologist is a good idea as this stone could cause blockage again and lead to some problems. Does she have anyone in mind for a urologist? I can put a referral in now. * Result Encounter Note - Errol Underwood MD - 01/25/2024 1:00 PM EDT I would like her to get back on the tamsulosin if she still has some of that at home. That may helppass the stone. As for urology let us do a referral to Dr. Mcgrath or Anthony with [facility] [place] documented in this encounter Plan of Treatment Upcoming Encounters Date Type Department Care Team (Late st Contact Info) Description 09/06/2024 11:00 AM EST Office Visit [facility] Well 65+ at [place] [address] [place] [address] Errol Underwood MD [address] [place], [place] [id number] 03/16/2025 11:15 AM EDT Office Visit [facility] at [place] [address] [place] [address] Samuel Winslow MD [address] [place] [address] documented as of this encounter Procedures Procedure Name Priority Date/Time Associated Diagnosis Comments US RENAL COMPLETE Routine 01/25/2024 1:1 7 PM EDT Kidney stone on left side Hydronephrosis of left kidney documented in this encounter Results * US Renal Complete (01/25/2024 1:17 PM EDT) Anatomical Region Laterality Modality Kidney N/A Ultrasound Impressions 01/28/2024 7:06 PM EDT Patient's previously reported left UVJ stone appears sonographically conspicuous on the current exam. Bilateral renal cysts. No obvious hydronephrosis in the current exam. Created by: Curt Nj Signed by: Curt Nj Signed on: 01/28/2024 19:06 EDT Location: [id number] ?? Narrative 01/28/2024 7:06 PM EDT ??EXAM: [...] Nj Signed on: 01/28/2024 19:06 EDT Location: [place] [address] Errol Underwood MD IMG US PROCEDURES documented in this encounter Visit Diagnoses Diagnosis Kidney stone on left side Hydronephrosis of left kidney Hydronephrosis documented in this encounter Additional Health Concerns Assessment Noted Time A fall risk assessment has been complete d for the patient 03/06/2023 8:14 AM EDT documented as of this encounter Care Teams Candle Molder Machine Relationship Specialty Start Date End Date Errol Underwood MD PCP - General Family Medicine 02/05/22 Errol Underwood MD [address] [place] [address] PCP - W65+ ACO REACH Attributed Provider 01/18/24 documented as of this encounter
--- OUTSIDE RECORDS SUMMARY | 2024-07-17 10:29 | XMS_ITS | Encounter Summary ---
Author Organization [facility] Address [address] [place] [address] Care Team Providers Care Injection Molding Supervisor Name Role Phone Errol Underwood MD Primary Care Provider [phone] Source Comments Please be aware that You and/or your organization are solely responsible for the use, security, privacy, and any decisions made with any information you receive from [employer] Encounter Details Date Type Department Care Team (Latest Contact Info) Description 03/17/2023 Travel Social History Tobacco Use Types Packs/Day [...] often do you attend chur ch or scientology services? Never 03/06/2023 Do you belong to any clubs o r organizations such as amish groups, unions, fraternal or athletic groups, or [...] Recorded Patient Health Questionnaire-2 Score 0 03/06/2023 [facility] [place] of Occupat ional Health - Occupational Stress [...] place to sleep or slept in a alf (including now)? 2 03/06/2023 Sex and Gender Information Value Date Recorded Sex Assigned at Not on file Gender Identity Not on file Sexual Orientation Not on file documented as of this encounter Plan of Treatment Upcoming Encounters Date Type Department Care Team (Late st Contact Info) Description 09/06/2024 11:00 AM EST Office Visit [facility] Well 65+ at [place] [address] [place] [address] Errol Underwood MD [address] [place] [address] 03/16/2025 11:15 AM EDT Office Visit [facility]rology at [place] [address] [place] [address] Samuel Winslow MD [address] [place] [address] documented as of this encounter Visit Diagnoses Not on filedocumented in this encounter Additional Health Concerns Infection Onset Date Last Indicated Resolved Time COVID-19 Rule-Out 03/17/2023 03/17/2023 03/17/2023 1:59 AM EDT Assessment Noted Time A fall risk assessment has been complete d for the patient 03/06/2023 8:14 AM EDT documented as of this encounter Care Teams Injection Molding Supervisor Relationship Specialty Start Date End Date Errol Underwood MD PCP - General Family Medicine 02/05/22 documented as of this encounter
--- OUTSIDE RECORDS SUMMARY | 2024-07-17 10:29 | XMS_ITS | Encounter Summary ---
Author Organization [facility] Address [address] [place] [address] Care Team Providers Care Orchid Hand Name Role Phone Errol Underwood MD Primary Care Provider [phone] Source Comments Please be aware that You and/or your organization are solely responsible for the use, security, privacy, and any decisions made with any information you receive from [employer] Reason for Visit * Reason Onset Date Comments Med Refill 12/24/2022 Med refill Encounter Details Date Type Department Care Team (Late st Contact Info) Description 12/24/2022 Refill [facility] Well 65+ at [place] [address] [place] [address] Errol Underwood MD [address] [place] [address] Gastroesophageal reflux disease with esophagitis, [...] often do you attend chur ch or baptist services? Never 08/20/2022 Do you belong to [...] bottle show any remaining refills? no Pharmacy? [id number] - [place], [place] - [address] [facility] [address] Patients spouse reports that [id number] should have sent us a faxed request last week, nothing observed in media. documented in this encounter Plan of Treatment Upcoming Encounters Date Type Department Care Team (Late st Contact Info) Description 09/06/2024 11:00 AM EST Office Visit [facility] Well 65+ at [place] [address] [place] [address] Errol Underwood MD [address] [place], [place] [id number] 03/16/2025 11:15 AM EDT Office Visit [facility] Urology at [place] [address] [place] [address] Samuel Winslow MD [address] [place] [address] documented as of this encounter Visit Diagnoses Diagnosis Gastroesophageal reflux disease with esophagitis, unspecified whether hemorrhage- Primary documented in this encounter Additional Health Concerns Assessment Noted Time A fall risk assessment has been complete d for the patient 08/20/2022 9:51 AM EST documented as of this encounter Care Teams Orchid Hand Relationship Specialty Start Date End Date Errol Underwood MD PCP - General Family Medicine 02/05/22 documented as of this encounter
--- OUTSIDE RECORDS SUMMARY | 2024-07-17 10:29 | XMS_ITS | Encounter Summary ---
Author Organization [facility] Address [address] [place] [address] Care Team Providers Care Strategic Marketing Associate Name Role Phone Errol Underwood MD Primary Care Provider [phone] Source Comments Please be aware that You and/or your organization are solely responsible for the use, security, privacy, and any decisions made with any information you receive from [employer] Encounter Details Date Type Department Care Team (Late st Contact Info) Description 11/19/2022 [facility] Well 65+ at [place] [address] [place] [address] Errol Underwood MD [address] [place] [address] Social History Tobacco Use Types [...] How often do you attend chur or mosque services? Never 08/20/2022 Do you belong to any clubs o r organizations such as methodist groups, unions, fraternal or athletic groups, or [...] slept in a alf (including now)? 2 08/19/2022 Sex and Gender Information Value Date Recorded Sex Assigned at Not on file Gender Identity Not on file Sexual Orientation Not on file documented as of this encounter Plan of Treatment Upcoming Encounters Date Type Department Care Team (Late st Contact Info) Description 09/06/2024 11:00 AM EST Office Visit [facility] Well 65+ at [place] [address] [place] [phone] Errol Underwood MD [address] [place] [address] 03/16/2025 11:15 AM EDT Office Visit [facility] at [place] [address] [place] [address] Samuel Winslow MD [address] [place] [address] documented as of this encounter Visit Diagnoses Not on filedocumented in this encounter Additional Health Concerns Assessment Noted Time A fall risk assessment has been complete d for the patient 08/20/2022 9:51 AM EST documented as of this encounter Care Teams Strategic Marketing Associate Relationship Specialty Start Date End Date Errol Underwood MD PCP - General Family Medicine 02/05/22 documented as of this encounter
--- OUTSIDE RECORDS SUMMARY | 2024-07-17 10:29 | XMS_ITS | Encounter Summary ---
Author Organization [facility] Address [address] [place] [address] Care Team Providers Care Geological Survey Field Assistant Name Role Phone Errol Underwood MD Primary Care Provider [phone] Source Comments Please be aware that You and/or your organization are solely responsible for the use, security, privacy, and any decisions made with any information you receive from [employer] Encounter Details Date Type Department Care Team [...] often do you attend chur ch or yazidism services? Never 03/06/2023 Do you belong to any clubs o r organizations such as orthodox groups, unions, fraternal or athletic groups, [...] Recorded Patient Health Questionnaire-2 Score 0 03/06/2023 [facility] of Occupat ional Health - Occupational Stress [...] a long term (including now)? 2 03/06/2023 Sex and Gender Information Value Date Recorded Sex Assigned at Not on file Gender Identity Not on file Sexual Orientation Not on file documented as of this encounter Plan of Treatment Upcoming Encounters Date Type Department Care Team (Late st Contact Info) Description 09/06/2024 11:00 AM EST Office Visit [facility] Well 65+ at [place] [address] [place] [address] Errol Underwood MD [address] [place] [address] 03/16/2025 11:15 AM EDT Office Visit [facility] at [place] [address] [place] [address] Samuel Winslow MD [address] [place] [address] documented as of this encounter Visit Diagnoses Not on filedocumented in this encounter Additional Health Concerns Assessment Noted Time A fall risk assessment has been complete d for the patient 03/06/2023 8:14 AM EDT documented as of this encounter Care Teams Geological Survey Field Assistant Relationship Specialty Start Date End Date Errol Underwood MD PCP - General Family Medicine 02/05/22 documented as of this encounter
--- OUTSIDE RECORDS SUMMARY | 2024-07-17 10:29 | XMS_ITS | Encounter Summary ---
Author Organization [facility] Address [address] [place] [address] Care Team Providers Care Antenna Machine Operator Name Role Phone Errol Underwood MD Primary Care Provider [phone] Source Comments Please be aware that You and/or your organization are solely responsible for the use, security, privacy, and any decisions made with any information you receive from [employer] Encounter Details Date Type Department Care Team [...] attend chur ch or congregational services? Never 08/20/2022 Do you belong to [...] slept in a chcf (including now)? 2 08/19/2022 Sex and Gender [...] Office Visit [facility] Well 65+ at [place] [address] [place] [phone] Errol Underwood MD [address] [place], [place] [id number] 03/16/2025 11:15 AM EDT Office Visit [facility]rology at [place] [address] [place] [address] Samuel Winslow MD [address] [place] [address] documented as of this encounter Visit Diagnoses Not on filedocumented in this encounter Additional Health Concerns Assessment Noted Time A fall risk assessment has been complete d for the patient 08/20/2022 9:51 AM EST documented as of this encounter Care Teams Antenna Machine Operator Relationship Specialty Start Date End Date Errol Underwood MD PCP - General Family Medicine 02/05/22 documented as of this encounter
--- OUTSIDE RECORDS SUMMARY | 2024-07-17 10:29 | XMS_ITS | Encounter Summary ---
Author Organization [facility] Address [address] [place] [address] Care Team Providers Care Network Development Coordinator Name Role Phone Errol Underwood MD Primary Care Provider [phone] Source Comments Please be aware that You and/or your organization are solely responsible for the use, security, privacy, and any decisions made with any information you receive from [employer].[facility] Encounter Details Date Type Department Care Team (Late st Contact Info) Description 11/19/2022 [facility] Well 65+ at [place] [address] [place] [address] Errol Underwood MD [address] [place] [address] Social History Tobacco Use Types [...] How often do you attend chur or scientologist services? Never 08/20/2022 Do you belong to [...] place to sleep or slept in a group home (including now)? 2 08/19/2022 Sex and Gender Information Value Date Recorded Sex Assigned at Not on file Gender Identity Not on file Sexual Orientation Not on file documented as of this encounter Plan of Treatment Upcoming Encounters Date Type Department Care Team (Late st Contact Info) Description 09/06/2024 11:00 AM EST Office Visit [facility] Well 65+ at [place] [address] [place] [phone] Errol Underwood MD [address] [place] [address] 03/16/2025 11:15 AM EDT Office Visit [facility] at [place] [address] [place] [address] Samuel Winslow MD [address] [place] [address] documented as of this encounter [...] documented as of this encounter Care Teams Network Development Coordinator Relationship Specialty Start Date End Date Errol Underwood MD PCP - General Family Medicine 02/05/22 documented as of this encounter
--- OUTSIDE RECORDS SUMMARY | 2024-07-17 10:29 | XMS_ITS | Encounter Summary ---
Author Organization [facility] Address [address] [place] [address] Care Team Providers Care Concrete Pouring Supervisor Name Role Phone Errol Underwood MD Primary Care Provider Errol Underwood MD Unavailable Source Comments Please be aware that You and/or your organization are solely responsible for the use, security, privacy, and any decisions made with any information you receive from [employer] Encounter Details Date Type Department Care Team (Late st Contact Info) Description 09/04/2023 [facility]phone [facility] Well 65+ at [place] [address] [place] [address] Lora Mendoza LPN Social History [...] often do you attend chur ch or orthodoxy services? Never 03/06/2023 Do you belong to any clubs o r organizations such as adventist groups, unions, fraternal or athletic groups, or [...] Recorded Patient Health Questionnaire-2 Score 0 03/06/2023 [facility] of Occupat ional [facility] - Occupational Stress Questionnaire Answer [...] 11:00 AM EST Office Visit [facility] Well 65+ at [place] [address] [place] [address] Errol Underwood MD [address] [facility] [place] [address] 03/16/2025 11:15 AM EDT Office Visit [facility] at [place] [address] [place] [address] Samuel Winslow MD [address] [place] [address] documented as of this encounter Visit Diagnoses Not on filedocumented in this encounter Additional Health Concerns Assessment Noted Time A fall risk assessment has been complete d for the patient 03/06/2023 8:14 AM EDT documented as of this encounter Care Teams Concrete Pouring Supervisor Relationship Specialty Start Date End Date Errol Underwood MD PCP - General Family Medicine 02/05/22 Errol Underwood MD [address] [place] [address] PCP - PCN-IN ACO REACH Attributed Provider 07/20/23 01/17/24 documented as of this encounter
--- OUTSIDE RECORDS SUMMARY | 2024-07-17 10:29 | XMS_ITS | Encounter Summary ---
Author Organization [facility] Address [address] [place] [address] Care Team Providers Care Circular Tank Cooper Name Role Phone Errol Underwood MD Primary Care Provider [phone] Source Comments Please be aware that You and/or your organization are solely responsible for the use, security, privacy, and any decisions made with any information you receive from [employer] Encounter Details Date Type Department Care Team [...] often do you attend chur ch or gnosticism services? Never 08/20/2022 Do you belong to [...] Description 09/06/2024 11:00 AM EST Office Visit [facility] Well 65+ at [place] [address] [place] [id number] Errol Underwood MD [address] [place], [place] [id number] 03/16/2025 11:15 AM EDT Office Visit [facility] at [place] [address] [place] [address] Smauel Winslow MD [address] [place] [address] documented as of this encounter Visit Diagnoses Not on filedocumented in this encounter Additional Health Concerns Assessment Noted Time A fall risk assessment has been complete d for the patient 08/20/2022 9:51 AM EST documented as of this encounter Care Teams Circular Tank Cooper Relationship Specialty Start Date End Date Errol Underwood MD PCP - General Family Medicine 02/05/22 documented as of this encounter
--- OUTSIDE RECORDS SUMMARY | 2024-07-17 10:29 | XMS_ITS | Encounter Summary ---
[facility] Organization [facility] Address [address] [place] [address] Care Team Providers Care Bottom Scrubber Name Role Phone Errol Underwood MD Primary Care Provider [phone] Source Comments Please be aware that You and/or your organization are solely responsible for the use, security, privacy, and any decisions made with any information you receive from [employer] Reason for Visit * Reason Onset Date Comments Med Refill 06/24/2023 Alprazolam Encounter Details Date Type Department Care Team (Late st Contact Info) Description 06/24/2023 [facility]ill [facility] Well 65+ at [place] [address] [place] [address] Errol Underwood MD [address] [place] [address] Anxiety Social History Tobacco Use [...] often do you attend chur ch or scientologist services? Never 03/06/2023 Do you belong to any clubs o r organizations such as baptist groups, unions, fraternal or athletic groups, or [...] Patient Health Questionnaire-2 Score 0 03/06/2023 [facility] - Occupational [...] rent on time? 2 03/06/2023 [facility] Places Lived Last Flowsheet Value Most Recent Result Not on file 03/06/2023 In the last 12 months, was t here a time when you did not have a steady place to sleep or slept in a fci (including now)? 2 03/06/2023 Sex and Gender [...] Description 09/06/2024 11:00 AM EST Office Visit [facility] Well 65+ at [place] [address] [place] [address] Errol Underwood MD [address] [place] [address] 03/16/2025 11:15 AM EDT Office Visit [facility] at [place] [address] [place] [phone] Samuel Winslow MD [address] [place] [address] documented as of this encounter Visit Diagnoses Diagnosis Anxiety Anxiety state, unspecified documented in this encounter Additional Health Concerns Assessment Noted Time A fall risk assessment has been complete d for the patient 03/06/2023 8:14 AM EDT documented as of this encounter Care Teams Bottom Scrubber Relationship Specialty Start Date End Date Errol Underwood MD PCP - General Family Medicine 02/05/22 documented as of this encounter
--- OUTSIDE RECORDS SUMMARY | 2024-07-17 10:29 | XMS_ITS | Encounter Summary ---
Author Organization [facility] Address [address] [place] [address] Care Team Providers Care Cigarette Catcher Name Role Phone Errol Underwood MD Primary Care Provider [phone] Source Comments Please be aware that You and/or your organization are solely responsible for the use, security, privacy, and any decisions made with any information you receive from [employer] Reason for Referral * Imaging (Routine) - Closed Specialty Diagnoses / Procedures Referred By Ryley pantoja Referred To Contact Diagnoses Encounter for screening mammogram for malignant neoplasm of breast Procedures BI Mammogram Screening Bilateral Errol Underwood MD [address] [place] [address] Referral ID Status Reason Start Date Expiration Date Visits Re quested Visits Authorized [id number] Closed 03/06/2023 03/05/2024 1 1 Reason for Visit * Reason Comments Medicare Annual Wellness Visit Subsequen t Annual Encounter Details Date Type Department Care Team (Late st Contact Info) Description 03/06/2023 8:30 AM EDT Office Visit [facility] Well 65+ at [place] [address] [place] [address] Errol Underwood MD [address] [place] [place] [address] Medicare annual wellness visit, subsequent [...] week 03/06/2023 How often do you attend [facility] or anglican services? 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 Gastroesophageal reflux disease without esophagitis Stable with PPI, understands risks and benefits 7. Osteopenia after menopause Seen on recent bone density, calcium vitamin-D and weight-bearing exercise 8. Urge incontinence of urine Following with automatic screwmaker no change 9. Encounter for screening mammogram [...] Description 09/06/2024 11:00 AM EST Office Visit [facility] Well 65+ at [place] [address] [place] [address] Errol Underwood MD [address] [place] [address] 03/16/2025 11:15 AM EDT Office Visit [facility] at [place] [address] [place] [address] Samuel Winslow MD [address] [place] [address] documented as of this encounter [...] AM EST) Cholesterol, Total 137 <200 mg/dL [facility] HDL Cholesterol 48(L) > OR = 50 mg/dL [employer] [facility] Triglycerides 120 <150 mg/dL [employer] [facility] LDL Cholesterol 68 mg/dL (calc) [employer] [facility] Comment: Reference range: <100 Desirable range <100 mg/dL for primary prevention; ?? <70 mg/dL for patients with CHD or diabetic patients with > or = 2 CHD risk factors. LDL-C is now calculated using the Stuart-Junaid calculation, which is a validated novel method providing better accuracy than the Friedewald equation in the estimation of LDL-C. Stuart SS et al. KIMBERLEY. 2013;310(19): 4496-6469 (http://education.Gozent/faq/DHD745) Chol/HDL Ratio 2.9 <5.0 (calc) [employer] [facility] Non-HDL Cholesterol 89 <130 mg/dL (calc) [employer] [facility] Comment: For patients with diabetes plus 1 major ASCVD risk factor, treating to a non-HDL-C goal of <100 mg/dL (LDL-C of <70 mg/dL) is considered a therapeutic option. Blood Venous blood specimen / Unknown 08/24/2023 8:35 AM EST 08/24/2023 8:35 AM EST Errol Underwood MD [facility] [address] [place] [address] * Comprehensive Metabolic Panel (CMP) (08/24/2023 8:35 AM EST) Glucose 98 65 - 99 mg/dL [employer] [facility] Comment: ? Fasting reference interval BUN [...] Errol Underwood MD [facility] [address] [place] [address] * CBC (08/24/2023 8:35 AM EST) White [...] Errol Underwood MD LAB BLOOD ORDERABLE S [employer] [facility] [address] [place] [address] documented in this encounter Visit Diagnoses Diagnosis [...] documented as of this encounter Care Teams Cigarette Catcher Relationship Specialty Start Date End Date Errol Underwood MD PCP - General Family Medicine 02/05/22 documented as of this encounter
--- OUTSIDE RECORDS SUMMARY | 2024-07-17 10:29 | XMS_ITS | Encounter Summary ---
Author Organization [facility] Address [address] [place] [address] Care Team Providers Care Mold Bunch Trimmer Name Role Phone Errol Underwood MD Primary Care Provider [phone] Source Comments Please be aware that You and/or your organization are solely responsible for the use, security, privacy, and any decisions made with any information you receive from [employer] Reason for Visit * Reason Comments medical clearance Medical clearance fo r cataract surgery scheduled November 17, 2022. Encounter Details Date Type Department Care Team (Late st Contact Info) Description 10/17/2022 2:00 PM EDT Office Visit [facility] Well 65+ at [place] [address] [place] [address] Errol Underwood MD [address] [place] [address] Age-related nuclear cataract of both [...] How often do you attend chur or oriental orthodox services? Never 08/20/2022 Do [...] rent on time? 2 08/19/2022 [facility] Places Lived Last Flowsheet Value Most Recent Result Not on file 08/19/2022 In the last 12 months, was t here a time when you did not have a steady place to sleep or slept in a intermediate (including now)? 2 08/19/2022 Sex and Gender [...] [facility] Well 65+ at [place] [address] [place] [address] Errol Underwood MD [address] [place] [address] 03/16/2025 11:15 AM EDT Office Visit [facility] at [place] [address] [place] [address] Samuel Winslow MD [address] [place] [address] documented as of this encounter [...] documented as of this encounter Care Teams Mold Bunch Trimmer Relationship Specialty Start Date End Date Errol Underwood MD PCP - General Family Medicine 02/05/22 documented as of this encounter
--- OUTSIDE RECORDS SUMMARY | 2024-07-17 10:29 | XMS_ITS | Encounter Summary ---
Author Organization [facility] Address [address] [place] [address] Care Team Providers Care Side Laster Staple Name Role Phone Errol Underwood MD Primary Care Provider +1 [phone] Source Comments Please be aware that You and/or your organization are solely responsible for the use, security, privacy, and any decisions made with any information you receive from [facility] Reason for Visit * Reason Comments Vomiting Diarrhea Vomiting and diarrhe a since this morning. Pt complains of abdominal cramping. States she did not eat anything that she is aware of to upset her stomach. Denies GI hx Encounter Details Date Type Department Care Team (Late st Contact Info) Description 03/17/2023 12:57 AM EDT - 03/17/2023 2:12 AM EDT Emergency [facility] ER [address] [place] [address] Floyd Cavazos DO Emergency Department [address] [place] [address] Vomiting and diarrhea (Primary Dx) Discharge Disposition: Home or Self [...] How often do you attend chur or scientology services? Never 03/06/2023 Do you [...] Recorded Patient Health Questionnaire-2 Score 0 03/06/2023 [facility] of Occupat ional Health - Occupational Stress [...] rent on time? 2 03/06/2023 [facility] Places Lived Last Flowsheet Value Most Recent [...] Sign Reading Time Taken Comments Blood Pressure 161/80 03/17/2023 1:02 AM EDT Pulse 96 03/17/2023 1:02 AM EDT Temperature 36.6 ??C (97.9 ??F) 03/17/2023 1:02 AM ED T Respiratory Rate 17 03/17/2023 1:02 AM EDT Oxygen Saturation 97% 03/17/2023 1:02 AM EDT Inhaled Oxygen Concentration - - Weight 87.3 kg (192 lb 7.4 oz) 03/17/2023 1:02 A M EDT Height 167.6 cm (5' 6 ) 03/17/2023 1:02 AM EDT Body Mass Index 31.06 03/17/2023 1:02 AM EDT documented in this encounter Medications at Time of Discharge Medication Sig Dispensed Refills Start Date End Date aspirin (aspirin) 81 MG EC tablet Patient stated, Yes, its chewable. Calcium Carbonate-Vitamin D 600-200 MG-UNIT capsule Take 1 capsule every day by oral route. ondansetron ODT (Zofran-ODT) 4 MG disintegrating tablet Take 1 tablet (4 mg total) by mouth every 8 (eight) hours if needed for nausea or vomiting for up to 7 days. 20 tablet 03/17/2023 03/24/2023 ALPRAZolam (Xanax) 0.5 MG tabletIndications:Anxiet y Take 1 tablet (0.5 mg total) by mouth at night if needed for anxiety. 30 tablet 1 03/06/2023 06/24/2023 atenolol (Tenormin) 25 MG tabletIndications:Hypert ension, essential Take 1 tablet (25 mg total) by mouth 1 (one) time each day. 90 tablet 3 10/17/2022 08/31/2023 atorvastatin (Lipitor) 20 MG tabletIndications:Mixed hyperlipidemia Take 1 tablet (20 mg total) by mouth 1 (one) time each day. 90 tablet 3 10/17/2022 08/31/2023 lansoprazole (Prevacid) [address] capsuleIndications:Gastr oesophageal reflux disease with esophagitis, unspecified whether hemorrhage TAKE 1 CAPSULE BY MOUTH EVERY DAY BEFORE A MEAL 90 capsule 1 12/25/2022 06/22/2023 meclizine (Antivert) 25 MG tablet TAKE 1 TABLET BY MOUTH EVERY 6 HOURS NEEDED FOR DIZZINESS FOR 5 DAYS 02/09/2023 01/18/2024 scopolamine (Transderm-Scop) 1 MG/3DAYS patch 72 hourIndications:Sea sickness, sequela Place 1 patch (1 mg total) on the skin every 3rd (third) day. 4 patch 1 03/06/2023 01/31/2024 documented as of this encounter ED Notes * Floyd Cavazos, - 03/17/2023 1:07 AM EDT HPI Chief Complaint Patient presents with ??? Vomiting ??? Diarrhea Vomiting and diarrhea since this morning. Pt complains of abdominal cramping. States she did not eat anything that she is aware of to upset her stomach. Denies GI hx Patient presents emerged department chief complaint of nausea vomiting diarrhea since this morning. Additional pertinent medical/family/surgical/social history: Patient denies to me any contributory medical, surgical, or family history other than as described in the HPI or elsewhere in the chart. Patient denies any alcohol or drug use other than as described elsewhere in the chart. Jenae Coma Scale Score: 15 Patient History Past Medical History: Diagnosis Date ??? GERD (gastroesophageal reflux disease) ??? History of atrial fibrillation ??? Hyperlipidemia ??? Hypertension Past Surgical History: Procedure Laterality Date ??? CYSTOSCOPY 10/15/2018 ??? DILATION AND CURETTAGE OF UTERUS 12/03/2015 ??? TONSILLECTOMY PEDS Family History Problem Relation Name Age of Onset ??? Diabetes Father ??? Hypertension Father ??? Coronary artery disease Father Social History Tobacco Use ??? Smoking status: Never ??? Smokeless tobacco: Never Vaping Use ??? Vaping Use: Never used Substance Use Topics ??? Alcohol use: Yes ??? Drug use: Never Review of Systems Review of Systems Constitutional: Negative for chills and fever. HENT: Negative for ear pain and sore throat. Eyes: Negative for pain and visual disturbance. Respiratory: Negative for cough and shortness of breath. Cardiovascular: Negative for chest pain and palpitations. Gastrointestinal: Positive for diarrhea and rectal pain. Negative for abdominal pain and vomiting. Genitourinary: Negative for dysuria and hematuria. Musculoskeletal: Negative for arthralgias and back pain. Skin: Negative for color change and rash. Neurological: Positive for headaches. Negative for seizures and syncope. All other systems reviewed and are negative. Physical Exam ED Triage Vitals [03/17/23 0102] Temp Heart Rate Resp BP 36.6 ??C (97.9 ??F) (!) 96 17 (!) 161/80 SpO2 Temp Source Heart Rate Source Patient Position 97 % Oral -- -- BP Location FiO2 (%) Oxygen Therapy O2 Flow Rate (L/min) -- -- None (Room air) -- O2 Delivery Method -- Physical Exam Vitals and nursing note reviewed. Constitutional: General: She is not in acute distress. Appearance: Normal appearance. She is well-developed. She is not ill-appearing, toxic-appearing or diaphoretic. HENT: Head: Normocephalic and atraumatic. Mouth/Throat: Pharynx: Oropharynx is clear. Eyes: Conjunctiva/sclera: Conjunctivae normal. Cardiovascular: Rate and Rhythm: Normal rate and regular rhythm. Pulses: Normal pulses. Pulmonary: Effort: Pulmonary effort is normal. No respiratory distress. Abdominal: Palpations: Abdomen is soft. Tenderness: There is no abdominal tenderness. There is no right CVA tenderness, left CVA tenderness, guarding or rebound. Musculoskeletal: General: No swelling. Normal range of motion. Cervical back: Neck supple. Skin: General: Skin is warm and dry. Capillary Refill: Capillary refill takes less than 2 seconds. Neurological: Mental Status: She is alert. Psychiatric: Mood and Affect: Mood normal. ED Course & MDM ED Course as of 03/17/23201Mar 17, 2023 0136 Tolerating p.o. and feeling much better. [SS] ED Course User Index [SS] Floyd Cavazos DO Diagnosis as of 03/17/23201 Vomiting and diarrhea Final diagnoses: None ED Disposition: Medical Decision Making Nausea vomiting diarrhea. Soft nontender abdomen on exam blood work was unremarkable given IV fluids antiemetics tolerating p.o. feeling much better and discharged home. COVID flu negative. Vomiting and diarrhea: acute illness or injury Amount and/or Complexity of Data Reviewed Labs: ordered. Decision-making details documented in ED Course. Risk OTC drugs. Prescription drug management. Visit Vital Signs Vitals: 03/17/23101 BP: (!) 161/80 Pulse: (!) 96 Resp: 17 Temp: 36.6 ??C (97.9 ??F) SpO2: 97% Orders Placed This Encounter Procedures ??? SARS-CoV-2 w/ Influenza A B RT PCR ??? Basic metabolic panel ??? CBC Auto Diff, Reflex Manual Diff if Indicated ??? Insert peripheral IV Medications sodium chloride 0.9 % bolus 1,000 mL (1,000 mL Intravenous New Bag 03/17/23107) ondansetron (Zofran) injection 4 mg (4 mg Intravenous Given 03/17/23107) Procedures Lab Results Labs Reviewed BASIC METABOLIC PANEL - Abnormal Result Value Sodium 135 (*) Potassium 3.9 Chloride 101 Carbon Dioxide 24.0 Anion Gap 10 Glucose 163 (*) BUN 15.0 Creatinine 0.65 BUN/Creatinine Ratio 23.1 Calcium 8.9 eGFR 93.7 CBC W/AUTO DIFF, REFLEX MANUAL DIFF IF INDICATED - Abnormal WBC 9.90 RBC 4.54 Hemoglobin 13.5 Hematocrit 40.2 MCV 88.5 MCH 29.7 MCHC 33.6 Platelet Count 291 MPV 9.6 Neutrophils % 89.8 (*) Lymphocytes % 5.5 (*) Monocytes % 4.2 (*) Eosinophils % 0.1 Basophils % 0.1 Neutrophils Absolute 8.89 (*) Lymphocytes Absolute 0.54 (*) Monocytes Absolute 0.42 Eosinophils Absolute 0.01 Basophil Absolute 0.01 CORONAVIR 2019 FLU PCR - Normal SARS COV2 COVID19 PCR Not Detected Influenza A PCR Not Detected Influenza B, PCR Not Detected I have personally reviewed and interpreted the lab results above. Radiology Results No orders to display I personally reviewed the radiology results as listed above. Final Disposition ED Prescriptions Medication Sig Dispense Start Date End Date Auth. Provider ondansetron ODT (Zofran-ODT) 4 MG disintegrating tablet Take 1 tablet (4 mg total) by mouth every 8(eight) hours if needed for nausea or vomiting for up to 7 days. 20 tablet 03/17/2023 03/24/2023 Floyd Cavazos DO Follow up Errol Underwood MD [address] [address] Floyd Cavazos DO 03/17/23 0204 documented in this encounter Miscellaneous Notes * Patient Discharge Packet - DARCY, CLINICIAN - 03/17/2023 1:37 AM EDT Images from the original note were not included. Patient Education Table of Contents Nausea and Vomiting, Adult To view videos and all your education online visit, [email or web address] or scan this QR code with your smartphone. Access to this content will in one year. Nausea and Vomiting, Adult Nausea is feeling that you have an upset stomach and that you are about to vomit. Vomiting is when food in your stomach forcefully comes out of your mouth. Vomiting can make you feel weak. If you vomit, or if you are not able to drink enough fluids, you may not have enough water in your body (get dehydrated). If you do not have enough water in your body, you may: Feel tired. Feel thirsty. Have a dry mouth. Have cracked lips. Pee (urinate) less often. Older adults and people with other diseases or a weak body defense system (immune system) are at higher risk for not having enough water in the body. If you feel like you may vomit or you vomit, it is important to follow instructions from your doctor about how to take care of yourself. Follow these instructions at home: Watch your symptoms for any changes. Tell your doctor about them. Eating and drinking Take an ORS (oral rehydration solution). This is a drink that is sold at pharmacies and stores. Drink clear fluids in small amounts as you are able, such as: Water. Ice chips. Fruit juice that has water added (diluted fruit juice). Low-calorie sports drinks. Eat bland, tmka-gr-rsfzuk foods in small amounts as you are able, such as: Bananas. Applesauce. Rice. Low-fat (lean) meats. [place]. Crackers. Avoid drinking fluids that have a lot of sugar or caffeine in them. This includes energy drinks, sports drinks, and soda. Avoid alcohol. Avoid spicy or fatty foods. General instructions Take chqc-lhx-bsnlqiv and prescription medicines only as told by your doctor. Drink enough fluid to keep your pee (urine) pale yellow. Wash your hands often with soap and water for at least 20 seconds. If you cannot use soap and water, use hand director of enrollment. Make sure that everyone in your home washes their hands well and often. Rest at home until you feel better. Watch your condition for any changes. Take slow and deep breaths when you feel like you may vomit. Keep all follow-up visits. Contact a doctor if: Your symptoms get worse. You have new symptoms. You have a fever. You cannot drink fluids without vomiting. You feel like you may vomit for more than 2 days. You feel light-headed or dizzy. You have a headache. You have muscle cramps. You have a rash. You have pain while peeing. Get help right away if: You have pain in your chest, neck, arm, or jaw. You feel very weak or you faint. You vomit again and again. You have vomit that is bright red or looks like black coffee grounds. You have bloody or black poop (stools) or poop that looks like tar. You have a very bad headache, a stiff neck, or both. You have very bad pain, cramping, or bloating in your belly (abdomen). You have trouble breathing. You are breathing very quickly. Your heart is beating very quickly. Your skin feels cold and clammy. You feel confused. You have signs of losing too much water in your body, such as: Dark pee, very little pee, or no pee. Cracked lips. Dry mouth. Sunken eyes. Sleepiness. Weakness. These symptoms may be an emergency. Get help right away. Call 911. Do not wait to see if the symptoms will go away. Do not drive yourself to the hospital. Summary Nausea is feeling that you have an upset stomach and that you are about to vomit. Vomiting is when food in your stomach comes out of your mouth. Follow instructions from your doctor about eating and drinking. Take bdpl-rst-lrisiua and prescription medicines only as told by your doctor. Contact your doctor if your symptoms get worse or you have new symptoms. Keep all follow-up visits. This information is not intended to replace advice given to you by your health care provider. Make sure you discuss any questions you have with your health care provider. Document Released: 12/22/2008 Document Revised: 01/10/2022 Document Reviewed: 01/10/2022 [employer] Patient Education ? 2022 [employer]. documented in this encounter Plan of Treatment Upcoming Encounters Date Type Department Care Team (Late st Contact Info) Description 09/06/2024 11:00 AM EST Office Visit [facility] Well 65+ at [place] [address] [place] [address] Errol Underwood MD [address] [place] [address] 03/16/2025 11:15 AM EDT Office Visit [facility] [place] [address] [place] [address] Samuel Winslow MD [address] [place] [address] documented as of this encounter Procedures Procedure Name Priority Date/Time Associated Diagnosis Comments CORONAVIR 2019 FLU PCR STAT 03/17/2023 1:36 AM EDT CBC W/AUTO DIFF, REFLEX MANUAL DIFF IF INDICATED STAT 03/17/2023 1:06 AM EDT BASIC METABOLIC PANEL STAT 03/17/2023 1:06 AM EDT documented in this encounter Results * SARS-CoV-2 w/ Influenza A B RT PCR (03/17/2023 1:36 AM EDT) SARS COV2 COVID19 PCR Not Detected Not Detected [employer]LE [employer]_ROCH E [employer] ._EUA 03/17/2023 1:59 AM EDT [facility] Comment:The [employer] SARS- CoV-2 test is only for the detection of SARS-CoV-2 RNA under the Food and Drug Administration's Emergency Use Authorization. Positive results are indicative of active infection with SARS -CoV-2; clinical correlation with patient history and other diagnostic information is necessary to determine patient infection status. Positive results do not rule out bacterial infection or co-infection with other viruses. Negative results do not preclude SARS-CoV-2 infection and should not be the sole basis for treatment or other patient management decisions. Negative results must be combined with clinical observations, patient history, and epidemiological information. Influenza A PCR Not Detected Negative, Not Detected, Invalid [employer] ._EUA 03/17/2023 1:59 AM EDT [facility] Influenza B, PCR Not Detected Negative, Not Detected, Invalid [employer] ._EUA 03/17/2023 1:59 AM EDT [facility] Swab Nasopharyngeal structure / Unknown 03/17/2023 1:36 AM EDT 03/17/2023 1:36 AM EDT Floyd Cavazos DO LAB MICROBIOLOGY - GENERAL ORDERABLES [facility] [address] [place] [address], * (ABNORMAL) CBC Auto Diff, Reflex Manual Diff if Indicated (03/17/2023 1:06 AM EDT) WBC 9.90 5.40 - 10.80 10*3/uL 03/17/2023 1:25 AM EDT [facility] RBC 4.54 3.79 - 5.19 10*6/uL 03/17/2023 1:25 AM EDT [facility] Hemoglobin 13.5 11.2 - 15.7 g/dL 03/17/2023 1:25 AM EDT [facility] Hematocrit 40.2 34.1 - 44.9 % 03/17/2023 1:25 AM EDT [facility] MCV 88.5 83.7 - 99.5 fL 03/17/2023 1:25 AM EDT [facility] MCH 29.7 27.6 - 33.1 pg 03/17/2023 1:25 AM EDT [facility] MCHC 33.6 31.3 - 34.9 g/dL 03/17/2023 1:25 AM EDT [facility] Platelet Count 291 126 - 432 10*3/uL 03/17/2023 1:25 AM EDT [facility] MPV 9.6 9.2 - 12.2 fL 03/17/2023 1:25 AM EDT [facility] Neutrophils % 89.8(H) 42.7 - 77.1 % 03/17/2023 1:25 AM EDT [facility] Lymphocytes % 5.5(L) 12.1 - 45.3 % 03/17/2023 1:25 AM EDT [facility] Monocytes % 4.2(L) 4.4 - 12.5 % 03/17/2023 1:25 AM EDT [facility] Eosinophils % 0.1 0.0 - 5.6 % 03/17/2023 1:25 AM EDT [facility] Basophils % 0.1 0.0 - 1.0 % 03/17/2023 1:25 AM EDT [facility] Neutrophils Absolute 8.89(H) 1.40 - 6.80 10*3/uL 03/17/2023 1:25 AM EDT [facility] Lymphocytes Absolute 0.54(L) 0.60 - 3.20 10*3/uL 03/17/2023 1:25 AM EDT [facility] Monocytes Absolute 0.42 0.20 - 0.90 10*3/uL 03/17/2023 1:25 AM EDT [facility] Eosinophils Absolute 0.01 0.00 - 0.60 10*3/uL 03/17/2023 1:25 AM EDT [facility] Basophil Absolute 0.01 0.00 - 0.10 10*3/uL 03/17/2023 1:25 AM EDT [facility] Blood Venous blood specimen / Unknown Venipuncture / Unknown 03/17/2023 1:06 AM EDT 03/17/2023 1:06 AM EDT Floyd Cavazos DO LAB BLOOD ORDERAB LES Performing Organization Address City/State/[facility] Co de Phone Number [facility] [address] [place] [address], * (ABNORMAL) Basic metabolic panel (03/17/2023 1:06 AM EDT) Sodium 135(L) 136 - 145 mmol/L ELECSYS ANTI-SARS- COV-2_ROCH E DIAGNOSTIC S_EUA 03/17/2023 1:25 AM EDT [facility] Potassium 3.9 3.5 - 5.1 mmol/L [employer]LECSYS ANTI-SARS- COV-2_ROCH E DIAGNOSTIC S_EUA 03/17/2023 1:25 AM EDT [facility] Chloride 101 98 - 107 mmol/L ELECSYS ANTI-SARS- COV-2_ROCH E DIAGNOSTIC S_EUA 03/17/2023 1:25 AM EDT [facility] Carbon Dioxide 24.0 22.0 - 29.0 mmol/L ELECSYS ANTI-SARS- COV-2_ROCH E DIAGNOSTIC S_EUA 03/17/2023 1:25 AM EDT [facility] Anion Gap 10 3 - 20 mmol/L ELECSYS ANTI-SARS- COV-2_ROCH E DIAGNOSTIC S_EUA 03/17/2023 1:25 AM EDT [facility] Glucose 163(H) 70 - 99 mg/dL ELECSYS ANTI-SARS- COV-2_ROCH E DIAGNOSTIC S_EUA 03/17/2023 1:25 AM EDT [facility] BUN 15.0 8.0 - 23.0 mg/dL ELECSYS ANTI-SARS- COV-2_ROCH E DIAGNOSTIC S_EUA 03/17/2023 1:25 AM EDT [facility] Creatinine 0.65 0.50 - 0.90 mg/dL ELECSYS ANTI-SARS- COV-2_ROCH E DIAGNOSTIC S_EUA 03/17/2023 1:25 AM EDT [facility] BUN/Creatinine Ratio 23.1 ELECSYS ANTI-SARS- COV-2_ROCH E DIAGNOSTIC S_EUA 03/17/2023 1:25 AM EDT [facility] Calcium 8.9 8.8 - 10.2 mg/dL ELECSYS ANTI-SARS- COV-2_ROCH E DIAGNOSTIC S_EUA 03/17/2023 1:25 AM EDT [facility] eGFR 93.7 mL/min/{1. 73_m2} 03/17/2023 1:25 AM EDT [facility] Comment: GFR calculated based on CKD-EPI [...] blood specimen / Unknown Venipuncture / Unknown 03/17/2023 1:06 AM EDT 03/17/2023 1:06 AM EDT Floyd Cavazos DO LAB BLOOD ORDERAB LES [facility] Organization Address City/State/[facility] Co de Phone Number [facility] [address] [place] [address], documented in this encounter Visit Diagnoses Diagnosis Vomiting and diarrhea- Primary documented in this encounter Administered Medications Inactive Administered Medications - up to 3 most recent administrations Medication Order MAR Action Action Date Dose Rate Site ondansetron (Zofran) injection 4 mg 4 mg, Intravenous, Once, On Thu03/17/23 at 0105, For 1 dose Given 03/17/2023 1:08 AM EDT 4 mg sodium chloride 0.9 % bolus 1,000 mL 1,000 mL, Intravenous, at 999 mL/hr, Administer over 1 Hours, Once, On Thu03/17/23 at 0105, For 1 dose New Bag 03/17/2023 1:08 AM EDT 1,000 mL 999 mL/hr documented in this encounter Active and Recently Administered Medications Times are shown in EDT. Scheduled Medication Order 03/15/2023 03/16/2023 03/17/2023 ondansetron (Zofran) injection 4 mg (COMPLETED) 4 mg, Intravenous, Once, On Thu03/17/23 at 0105, For 1 dose 0108 (Given - Provid er: Vikram Caruso) sodium chloride 0.9 % bolus 1,000 mL (COMPLETED) 1,000 mL, Intravenous, at 999 mL/hr, Administer over 1 Hours, Once, On Thu03/17/23 at 0105, For 1 dose 0108 (New Bag - Prov ider: Vikram Caruso)[id number] (Stopped - Provider: Luma Bajwa RN) documented in this encounter Additional Health Concerns Infection Onset Date Last Indicated Resolved Time COVID-19 Rule-Out 03/17/2023 03/17/2023 03/17/2023 1:59 AM EDT Assessment Noted Time A fall risk assessment has been complete d for the patient 03/06/2023 8:14 AM EDT documented as of this encounter Care Teams Side Laster Staple Relationship Specialty Start Date End Date Errol Underwood MD PCP - General Family Medicine 02/05/22 documented as of this encounter
--- OUTSIDE RECORDS SUMMARY | 2024-07-17 10:29 | XMS_ITS | Encounter Summary ---
Author Organization Counts include 234 beds at the [facility] Address [address] [place] [address] Care Team Providers Care Tube Blower Name Role Phone Errol Underwood MD Primary Care Provider [phone] Source Comments Please be aware that You and/or your organization are solely responsible for the use, security, privacy, and any decisions made with any information you receive from [email or web address] Reason for Visit * Reason Onset Date Comments Med Refill 06/22/2023 [email or web address] Encounter Details Date Type Department Care Team (Late st Contact Info) Description 06/22/2023 Refill Counts include 234 beds at the [facility] Well 65+ at [place] [address] [place] [address] Errol Underwood MD [address] [place] [address] Gastroesophageal reflux disease with esophagitis, [...] often do you attend chur ch or mandaeism services? Never 03/06/2023 Do you belong to any clubs o r organizations such as catholic groups, unions, fraternal or athletic groups, or [...] [facility] of Occupat ionms Health - Occupational Stress Questionnaire Answer Date [...] rent on time? 2 03/06/2023 [facility] Places Lived Last Flowsheet Value Most Recent Result Not on file 03/06/2023 In the last 12 months, was t here a time when you did not have a steady place to sleep or slept in a long-term (including now)? 2 03/06/2023 Sex and Gender Information Value Date Recorded Sex Assigned at Not on file Gender Identity Not on file Sexual Orientation Not on file documented as of this encounter Miscellaneous Notes * Telephone Encounter - Elaine Dotson LPN - 06/22/2023 4:59 PM EST Shawn [phone] Lansoprazole documented in this encounter Plan of Treatment Upcoming Encounters Date Type Department Care Team (Late st Contact Info) Description 09/06/2024 11:00 AM EST Office Visit [facility] Well 65+ at [place] [address] [place] [address] Errol Underwood MD [address] [place] [address] 03/16/2025 11:15 AM EDT Office Visit [facility] [place] [address] [place] [address] Samuel Winslow MD [address] [place] [address] documented as of this encounter Visit Diagnoses Diagnosis Gastroesophageal reflux disease with esophagitis, unspecified whether hemorrhage documented in this encounter Additional Health Concerns Assessment Noted Time A fall risk assessment has been complete d for the patient 03/06/2023 8:14 AM EDT documented as of this encounter Care Teams Tube Blower Relationship Specialty Start Date End Date Errol Underwood MD PCP - General Family Medicine 02/05/22 documented as of this encounter
--- OUTSIDE RECORDS SUMMARY | 2024-07-17 10:29 | XMS_ITS | Encounter Summary ---
Author Organization [facility] Address [address] [place] [address] Care Team Providers Care Geology Teacher Name Role Phone Errol Underwood MD Primary Care Provider [phone] Source Comments Please be aware that You and/or your organization are solely responsible for the use, security, privacy, and any decisions made with any information you receive from [employer] Encounter Details Date Type Department Care Team (Late st Contact Info) Description 03/17/2023 Patient Outreach [facility] Well 65+ at [place] [address] [place] [address] Tabitha Beckham RN Social History [...] any clubs o r organizations such as episcopal groups, unions, fraternal or athletic groups, or [...] Recorded Patient Health Questionnaire-2 Score 0 03/06/2023 [facility] - [...] or rent on time? 2 03/06/2023 [facility] Places Lived Last Flowsheet Value Most Recent Result Not on file 03/06/2023 In the last 12 months, was t here a time when you did not have a steady place to sleep or slept in a longterm (including now)? 2 03/06/2023 Sex and Gender [...] the patient have a friend or family rn transitional care? Yes, Name of Production Editor: Spouse Contact Number: Does the patient have [...] Description 09/06/2024 11:00 AM EST Office Visit [facility] Well 65+ at [place] [address] [place] [phone] Errol Underwood MD [address] [place] [address] 03/16/2025 11:15 AM EDT Office Visit [facility] Urology at [place] [address] [place] [address] Samuel Winslow MD [address] [facility] [address] [place] [address] documented as of this encounter Visit Diagnoses Not on filedocumented in this encounter Additional Health Concerns Infection Onset Date Last Indicated Resolved Time COVID-19 Rule-Out 03/17/2023 03/17/2023 03/17/2023 1:59 AM EDT Assessment Noted Time A fall risk assessment has been complete d for the patient 03/06/2023 8:14 AM EDT documented as of this encounter Care Teams Geology Teacher Relationship Specialty Start Date End Date Errol Underwood MD PCP - General Family Medicine 02/05/22 documented as of this encounter
--- OUTSIDE RECORDS SUMMARY | 2024-07-17 10:29 | XMS_ITS | Encounter Summary ---
Author Organization [facility] Address [address] [place] [address] Care Team Providers Care Department Helper Name Role Phone Errol Underwood MD Primary Care Provider [phone] Source Comments Please be aware that You and/or your organization are solely responsible for the use, security, privacy, and any decisions made with any information you receive from [employer] Reason for Visit * Reason Onset Date Comments Results 10/09/2022 Encounter Details Date Type Department Care Team (Late st Contact Info) Description 10/09/2022 Telephone [facility] Well 65+ at [place] [address] [place] [address] Errol Underwood MD [address] [place] [address] Results Social History Tobacco Use [...] often do you attend chur ch or hindu services? Never 08/20/2022 Do you belong to any clubs o r organizations such as baptism groups, unions, fraternal or athletic groups, or [...] slept in a snf (including now)? 2 08/19/2022 Sex and Gender [...] Description 09/06/2024 11:00 AM EST Office Visit [facility] Well 65+ at [place] [address] [place] [phone] Errol Underwood MD [address] [place], [place] [id number] 03/16/2025 11:15 AM EDT Office Visit [facility] Urology at [place] [address] [place] [address] Samuel Winslow MD [address] [place] [address] documented as of this encounter Visit Diagnoses Not on filedocumented in this encounter Additional Health Concerns Assessment Noted Time A fall risk assessment has been complete d for the patient 08/20/2022 9:51 AM EST documented as of this encounter Care Teams Department Helper Relationship Specialty Start Date End Date Errol Underwood MD PCP - General Family Medicine 02/05/22 documented as of this encounter
--- OUTSIDE RECORDS SUMMARY | 2024-07-17 10:30 | XMS_ITS | Encounter Summary ---
Author Organization [facility] Address [address] [place] [address] Care Team Providers Care Drum Tester Name Role Phone Errol Underwood MD Primary Care Provider [phone] Source Comments Please be aware that You and/or your organization are solely responsible for the use, security, privacy, and any decisions made with any information you receive from [facility] Encounter Details Date Type Department Care Team (Latest Contact Info) Description 08/20/2022 Travel Social History Tobacco Use Types Packs/Day [...] attend chur ch or synagogue services? Never 08/20/2022 Do you belong to [...] AM EST documented as of this encounter Plan of Treatment Upcoming Encounters Date Type Department Care Team (Late st Contact Info) Description 09/06/2024 11:00 AM EST Office Visit [facility] Well 65+ at [place] [address] [place] [phone] Errol Underwood MD [address] [place] [address] 03/16/2025 11:15 AM EDT Office Visit [facility] Urology at [place] [address] [place] [address] Samuel Winslow MD [address] [place] [address] documented as of this encounter Visit Diagnoses Not on filedocumented in this encounter Additional Health Concerns Assessment Noted Time A fall risk assessment has been complete d for the patient 08/20/2022 9:51 AM EST documented as of this encounter Care Teams Drum Tester Relationship Specialty Start Date End Date Errol Underwood MD PCP - General Family Medicine 02/05/22 documented as of this encounter
--- OUTSIDE RECORDS SUMMARY | 2024-07-17 10:30 | XMS_ITS | Encounter Summary ---
Author Organization [facility] Address [address] [place] [address] Care Team Providers Care Hi Low Truck Driver Name Role Phone Errol Underwood MD Unavailable Errol Underwood MD Primary Care Provider Source Comments Please be aware that You and/or your organization are solely responsible for the use, security, privacy, and any decisions made with any information you receive from [employer] Reason for Visit * Reason Comments Med Refill Encounter Details Date Type Department Care Team (Late st Contact Info) Description 02/23/2022 Refill [facility] Well 65+ at [address] [address] Errol Underwood MD [address] [place] [address] Hypertension, unspecified type Social History Tobacco Use Types Packs/Day Years [...] AM EDT documented as of this encounter Miscellaneous Notes * Telephone Encounter - Lora Mendoza LPN - 02/24/2022 10:57 AM EDT Last refill ordered 02/12/22. documented in this encounter Plan of Treatment Upcoming Encounters Date Type Department Care Team (Late st Contact Info) Description 09/06/2024 11:00 AM EST Office Visit [facility] Well 65+ at [place] [address] [place] [phone] Errol Underwood MD [address] [place] [address] 03/16/2025 11:15 AM EDT Office Visit [facility] Urology at [place] [address] [place] [address] Samuel Winslow MD [address] [place], [place] [phone] documented as of this encounter Visit Diagnoses Diagnosis Hypertension, unspecified type documented in this encounter Care Teams Hi Low Truck Driver Relationship Specialty Start Date End Date Errol Underwood MD [address] [place], [place] [phone] PCP - [facility] Attributed Provider 10/18/21 07/19/22 Errol Underwood MD [address] [place] [address] PCP - General Family Medicine 02/05/22 documented as of this encounter
--- OUTSIDE RECORDS SUMMARY | 2024-07-17 10:30 | XMS_ITS | Encounter Summary ---
Author Organization [facility] Address [address] [place] [address] Care Team Providers Care Entry Level Manager Name Role Phone Unavailable Primary Care Provider Unavailabl e Source Comments Please be aware that You and/or your organization are solely responsible for the use, security, privacy, and any decisions made with any information you receive from [employer] Encounter Details Date Type Department Care Team (Late Contact Info) Description 06/27/2019 [facility] Encounter EST Converstion Department [address] [place] [address] ProviderKimani MD [address] [place], [place] [address] Social History Tobacco Use Types Packs/Day Years Used Date Smoking Tobacco: Never Assessed Sex and Gender Information Value Date Recorded Sex Assigned at Not on file Gender Identity Not on file Sexual Orientation Not on file documented as of this encounter Plan of Treatment Upcoming Encounters Date Type Department Care Team ([facility] Contact Info) Description 09/06/2024 11:00 AM EST Office Visit [facility] Well 65+ at [place] [address] [place] [address] Errol Underwood MD [address] [facility] [place], [place] [phone] 03/16/2025 11:15 AM EDT Office Visit [facility] Urology at [place] [address] [place] [address] Samuel Winslow MD [address] [place] [address] [address] [place] [address] documented as of this encounter Procedures Procedure [...] 5.6 3.8 - 10.8 Thousand/u L [facility] Red Blood Cells 4.47 3.80 - 5.10 Million/uL [facility] Hemoglobin 13.3 11.7 - 15.5 g/dL [facility] Hematocrit 40.2 35.0 - 45.0 % [facility] MCV 89.9 80.0 - 100.0 fL [facility] MCH 29.8 27.0 - 33.0 pg [facility] MCHC 33.1 32.0 - 36.0 g/dL [facility] RDW 13.1 11.0 - 15.0 % [facility] Platelet Count 171 140 - 400 Thousand/u L [facility] MPV 10.4 7.5 - 12.5 fL [facility] Neutrophils Absolute 3,371 1,500 - 7,800 cells/uL [facility] Lymphocytes Absolute 1,445 850 - 3,900 cells/uL [facility] Monocytes Absolute 571 200 - 950 cells/uL [facility] Eosinophils Absolute 162 15 - 500 cells/uL [facility] Basophil Absolute 50 0 - 200 cells/uL [facility] Neutrophils, % 60.2 % [facility] Lymphocytes Absolute 25.8 % [facility] Monocytes % 10.2 % [facility] Eosinphils % 2.9 % [facility] Basophils 0.9 % [facility] 06/27/2019 8:49 AM EST 06/27/2019 8:50 AM EST Narrative [facility] - 06/27/2019 7:19 PM EST FASTING: Y FASTING:YES Historical Provider LAB BLOOD ORDERAB LES [facility] * (ABNORMAL) Comprehensive Metabolic Panel (CMP) (06/27/2019 8:49 AM EST) [facility] Glucose 101(H) 65 - 99 mg/dL [facility] Comment: ? Fasting reference interval For someone without known diabetes, a glucose value between 100 and 125 mg/dL is consistent with prediabetes and should be confirmed with a follow-up test. BUN 13 7 - 25 mg/dL [facility] Creatinine 0.73 0.50 - 0.99 mg/dL [facility] Comment: For patients >49 years of age, the reference limit for Creatinine is approximately 13% higher for people identified as -Dutch. eGFR Non-Afr. Dutch 85 > OR = 60 mL/min/1 .73m2 [facility] eGFR 98 > OR = 60 mL/min/1 .73m2 [facility] BUN/Creatinine Ratio NOT APPLICABLE 6 - 22 (calc) [facility] Sodium 139 135 - 146 mmol/L [facility] Potassium 4.6 3.5 - 5.3 mmol/L [facility] Chloride 104 98 - 110 mmol/L [facility] Carbon Dioxide 28 20 - 32 mmol/L [facility] Calcium 9.2 8.6 - 10.4 mg/dL [facility] Protein, Total 6.6 6.1 - 8.1 g/dL [facility] Albumin 3.9 3.6 - 5.1 g/dL [facility] Globulin 2.7 1.9 - 3.7 g/dL (calc) [facility] A/G Ratio 1.4 1.0 - 2.5 (calc) [facility] Bilirubin, Total 0.7 0.2 - 1.2 mg/dL [facility] Alkaline Phosphatase 89 33 - 130 U/L [facility] AST 16 10 - 35 U/L [facility] ALT 13 6 - 29 U/L [facility] 06/27/2019 8:49 AM EST 06/27/2019 8:50 AM EST Narrative [facility] - 06/27/2019 7:19 PM EST FASTING: Y FASTING:YES Historical Provider MD LAB BLOOD ORDERAB LES [facility] * (ABNORMAL) Lipid Panel (06/27/2019 8:49 AM EST) Cholesterol, Total 131 <200 mg/dL [facility] HDL Cholesterol 50(L) >50 mg/dL [facility] Triglycerides 80 <150 mg/dL [facility] LDL Cholesterol 65 mg/dL (calc) [facility] Chol/HDL Ratio 2.6 <5.0 (calc) [facility] Non-HDL Cholesterol 81 <130 mg/dL (calc) [facility] 06/27/2019 8:49 AM EST 06/27/2019 8:50 AM EST Narrative [facility] - 06/27/2019 7:19 PM EST FASTING: Y FASTING:YES Historical Provider LAB BLOOD ORDERAB LES [facility] documented in this encounter Visit Diagnoses Not on filedocumented in this encounter
--- OUTSIDE RECORDS SUMMARY | 2024-07-17 10:30 | XMS_ITS | Encounter Summary ---
Author Organization [facility] Address [address] [place] [address] Care Team Providers Care Secretary To Board Of Commissioners Name Role Phone Unavailable Primary Care Provider Unavailabl e Source Comments Please be aware that You and/or your organization are solely responsible for the use, security, privacy, and any decisions made with any information you receive from [email or web address] Encounter Details Date Type Department Care Team (Late Contact Info) Description 01/25/2021 [facility] Encounter EST Converstion Department [address] [place] [address] Provider, MD Kimani [address] [place], [place] [address] Social History Tobacco Use Types Packs/Day Years [...] 09/06/2024 11:00 AM EST Office Visit [facility] Well 65+ at [place] [address] [place] [address] Errol Underwood MD [address] [facility] [place], [place] [phone] 03/16/2025 11:15 AM EDT Office Visit [facility] Urology at [place] [address] [place] [address] Samuel Winslow MD [address] [place] [address] documented as of this encounter Procedures Procedure [...] Count 5.6 3.8 - 10.8 Thousand/u L [facility] Red Blood Cells 4.39 3.80 - 5.10 Million/uL [facility] Hemoglobin 13.5 11.7 - 15.5 g/dL [facility] Hematocrit 39.8 35.0 - 45.0 % [facility] MCV 90.7 80.0 - 100.0 fL [facility] MCH 30.8 27.0 - 33.0 pg [facility] MCHC 33.9 32.0 - 36.0 g/dL [facility] RDW 13.1 11.0 - 15.0 % [facility] Platelet Count 215 140 - 400 Thousand/u L [facility] MPV 10.0 7.5 - 12.5 fL [facility] Neutrophils Absolute 3,287 1,500 - 7,800 cells/uL [facility] Lymphocytes Absolute 1,585 850 - 3,900 cells/uL [facility] Monocytes Absolute 526 200 - 950 cells/uL [facility] Eosinophils Absolute 140 15 - 500 cells/uL [facility] Basophil Absolute 62 0 - 200 cells/uL [facility] Neutrophils, % 58.7 % [facility] Lymphocytes Absolute 28.3 % [facility] Monocytes % 9.4 % [facility] Eosinphils % 2.5 % [facility] Basophils 1.1 % [facility] 01/25/2021 7:11 AM EDT 01/25/2021 7:11 AM EDT Narrative [facility] - 01/26/2021 3:02 AM EDT FASTING:YES Historical Provider LAB BLOOD ORDERAB LES Performing Organization Address City/[facility]/ZIP Co de Phone Number [facility] * Comprehensive Metabolic Panel (CMP) (01/25/2021 7:11 AM EDT) Pathologist [facility] Glucose 96 65 - 99 mg/dL [facility] Comment: ? Fasting reference interval BUN 14 7 - 25 mg/dL [facility] Creatinine 0.61 0.50 - 0.99 mg/dL [facility] Comment: For patients >49 years of age, the reference limit for Creatinine is approximately 13% higher for people identified as -Italian. eGFR Non-Afr. Italian 92 > OR = 60 mL/min/1 .73m2 [facility] eGFR 107 > OR = 60 mL/min/1 .73m2 [facility] BUN/Creatinine Ratio NOT APPLICABLE 6 - 22 (calc) [facility] Sodium 138 135 - 146 mmol/L [facility] Potassium 4.5 3.5 - 5.3 mmol/L [facility] Chloride 103 98 - 110 mmol/L [facility] Carbon Dioxide 31 20 - 32 mmol/L [facility] Calcium 9.1 8.6 - 10.4 mg/dL [facility] Protein, Total 6.3 6.1 - 8.1 g/dL [facility] Albumin 3.8 3.6 - 5.1 g/dL [facility] Globulin 2.5 1.9 - 3.7 g/dL (calc) [facility] A/G Ratio 1.5 1.0 - 2.5 (calc) [facility] Bilirubin, Total 0.7 0.2 - 1.2 mg/dL [facility] Alkaline Phosphatase 77 37 - 153 U/L [facility] AST 14 10 - 35 U/L [facility] ALT 12 6 - 29 U/L [facility] 01/25/2021 7:11 AM EDT 01/25/2021 7:11 AM EDT Narrative [facility] - 01/26/2021 3:02 AM EDT FASTING:YES Historical Provider LAB BLOOD ORDERAB LES Performing Organization Address City/[facility]/ZIP Co de Phone Number [facility] * Lipid Panel (01/25/2021 7:11 AM EDT) Pathologist [facility] Cholesterol, Total 134 <200 mg/dL [facility] HDL Cholesterol 54 > OR = 50 mg/dL [facility] Triglycerides 79 <150 mg/dL [facility] LDL Cholesterol 64 mg/dL (calc) [facility] Chol/HDL Ratio 2.5 <5.0 (calc) [facility] Non-HDL Cholesterol 80 <130 mg/dL (calc) [facility] 01/25/2021 7:11 AM EDT 01/25/2021 7:11 AM EDT Narrative [facility] - 01/26/2021 3:02 AM EDT FASTING:YES Historical Provider LAB BLOOD ORDERAB LES [facility] documented in this encounter Visit Diagnoses Not on filedocumented in this encounter
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
--- OUTSIDE RECORDS SUMMARY | 2024-07-17 10:30 | XMS_ITS | Encounter Summary ---
Author Organization [facility] Address [address] [place] [address] Care Team Providers Care Engineering Job Titles Name Role Phone Errol Underwood MD Primary Care Provider [phone] Source Comments Please be aware that You and/or your organization are solely responsible for the use, security, privacy, and any decisions made with any information you receive from [facility] Reason for Visit * Reason Onset Date Comments Medical Clearance 09/18/2022 Encounter Details Date Type Department Care Team (Late st Contact Info) Description 09/18/2022 Telephone [facility] Well 65+ at [place] [address] [place] [address] Errol Underwood MD [address] [place] [address] Medical Clearance Social History Tobacco Use Types Packs/Day Years [...] attend chur ch or rastafarian services? Never 08/20/2022 Do you belong to any clubs o r organizations such as mosque groups, unions, fraternal or athletic groups, or [...] place to sleep or slept in a [place] health care facility (including now)? 2 08/19/2022 Sex and Gender [...] encounter Miscellaneous Notes * Telephone Encounter - Edda De Jesus - 09/19/2022 8:27 AM EST Patient called in returning our offices call. Scheduled patient for medical clearance on 10/17/2022 at 2 pm. P: [phone] * Telephone Encounter - Cris Oconnell - 09/18/2022 4:42 PM EST Patient left a voice message saying she was returning a call ; please give her a call * Telephone Encounter - SHEREEN Arellano - 09/18/2022 2:04 PM EST We received a medical clearance. Patient is having eye surgery on 11/17/2022. I left a message with her to call back the office so we can schedule patient to have form filled out. documented in this encounter Plan of Treatment Upcoming Encounters Date Type Department Care Team (Late st Contact Info) Description 09/06/2024 11:00 AM EST Office Visit [facility] Well 65+ at [place] [address] [place] [phone] Errol Underwood MD [address] [place], [place] [id number] 03/16/2025 11:15 AM EDT Office Visit [facility] Urology at [place] [address] [place] [address] Samuel Winslow MD [address] [place] [address] documented as of this encounter Visit Diagnoses Not on filedocumented in this encounter Additional Health Concerns Assessment Noted Time A fall risk assessment has been complete d for the patient 08/20/2022 9:51 AM EST documented as of this encounter Care Teams Engineering Job Titles Relationship Specialty Start Date End Date Errol Underwood MD PCP - General Family Medicine 02/05/22 documented as of this encounter
--- OUTSIDE RECORDS SUMMARY | 2024-07-17 10:30 | XMS_ITS | Encounter Summary ---
Author Organization [facility] Address [address] [place] [address] Care Team Providers Care Communication Studies Professor Name Role Phone Unavailable Primary Care Provider Unavailabl e Source Comments Please be aware that You and/or your organization are solely responsible for the use, security, privacy, and any decisions made with any information you receive from [employer] Encounter Details Date Type Department Care Team (Late Contact Info) Description 09/01/2018 [facility] Encounter EST Converstion Department [address] [place] [address] ProviderKimani MD [address] [place], [place] [address] Social History Tobacco Use Types Packs/Day Years Used Date Smoking Tobacco: Never Assessed Sex and Gender Information Value Date Recorded Sex Assigned at Not on file Gender Identity Not on file Sexual Orientation Not on file documented as of this encounter Plan of Treatment Upcoming Encounters Date Type Department Care Team ([facility] Contact Info) Description 09/06/2024 11:00 AM EST Office Visit [facility] Well 65+ at [place] [address] [place] [address] Errol Underwood MD [address] [facility] [place], [place] [address] 03/16/2025 11:15 AM EDT Office Visit [facility]rology at [place] [address] [place] [address] Samuel Winslow MD [address] [place] [address] [address] [place] [address] documented as of this encounter Procedures Procedure Name Priority Date/Time Associated Diagnosis Comments THINPREP PAP Routine 09/01/2018 1:19 PM EST documented in this encounter Results * Thinprep PAP (09/01/2018 1:19 PM EST) Clinical Information: [facility] Comment:Postmenopausal bleed ing LMP None given [employer] Prev PAP 20,817 [employer] PREV. BX None given [employer] Source None given [employer] Statement of Adequacy [facility] Comment: Satisfactory for evaluation. Endocervical/transformation zone component present. General Categorization [facility] Comment:Other; see interpret ation/result Interpretation [facility] Comment: Negative for intraepithelial lesion. Endometrial Cells identified in a woman specified as post-menopausal. Comment [facility] Comment: Tip of collection device in vial The clinical significance of endometrial cells should be interpreted in the context of menstrual history and reproductive status. If out of phase of cycle or after menopause, this finding may be associated with normal functioning endometrium, benign endometrium with stromal breakdown, hormonal alterations and, less commonly, endometrial neoplasia. ??Clinical correlation is suggested. Summer Child Caregiver: LINDY VALLECILLO [place] Comment: MASSIMO CHOI (ASCP) CT screening location: [place] [address] Pathologist [facility] Comment: MAGDA DOMÍNGUEZ M.D., ? BOARD CERTIFIED IN ANATOMIC AND CLINICAL PATHOLOGY, CYTOPATHOLOGY (ELECTRONIC SIGNATURE) Comment [facility] Comment: EXPLANATORY NOTE: The Pap is a [...] INCORRECT, PLEASE CONTACT CLIENT SERVICES. PHONE NUMBER: [phone] 09/01/2018 1:19 PM EST 08/28/2018 2:34 AM EST Historical Provider LAB BLOOD ORDERAB LES Performing Organization Address City/State/[facility] Co de Phone Number [facility] documented in this encounter Visit Diagnoses Not on filedocumented in this encounter
--- OUTSIDE RECORDS SUMMARY | 2024-07-17 10:30 | XMS_ITS | Encounter Summary ---
Author Organization [facility] Address [address] [place] [address] Care Team Providers Care Cardiovascular Sonographer Name Role Phone Errol Underwood MD Primary Care Provider [phone] Source Comments Please be aware that You and/or your organization are solely responsible for the use, security, privacy, and any decisions made with any information you receive from [employer] Encounter Details Date Type Department Care Team (Latest Contact Info) Description 10/08/2022 12:41 PM EDT - 10/08/2022 11:59 PM EDT Hospital Encounter [facility] Imaging [place] [facility] [address] [place] [address] Discharge Disposition: Home or Self [...] often do you attend chur ch or cheondoism services? Never 08/20/2022 Do you belong to [...] in a care home (including now)? 2 08/19/2022 Sex and [...] 09/06/2024 11:00 AM EST Office Visit [facility] Well 65+ at [place] [address] [place] [address] Errol Underwood MD [address] [place] [address] 03/16/2025 11:15 AM EDT Office Visit [facility]rology at [place] [address] [place] [address] Samuel Winslow MD [address] [place] [address] documented as of this encounter [...] MD Signed on: 10/08/2022 13:22 EDT Location: [facility] Errol Underwood MD IMG DXA PROCEDURES documented in this encounter Visit Diagnoses Not on filedocumented in this encounter Additional Health Concerns Assessment Noted Time A fall risk assessment has been complete d for the patient 08/20/2022 9:51 AM EST documented as of this encounter Care Teams Cardiovascular Sonographer Relationship Specialty Start Date End Date Errol Underwood MD PCP - General Family Medicine 02/05/22 documented as of this encounter
--- OUTSIDE RECORDS SUMMARY | 2024-07-17 10:30 | XMS_ITS | Encounter Summary ---
Author Organization [facility] Address [address] [place] [address] Care Team Providers Care Piercing Specialist Name Role Phone Errol Underwood MD Unavailable [phone] Errol Underwood MD Primary Care Provider Source Comments Please be aware that You and/or your organization are solely responsible for the use, security, privacy, and any decisions made with any information you receive from [employer] Encounter Details Date Type Department [...] Description 09/06/2024 11:00 AM EST Office Visit [facility] Well 65+ at [place] [address] [place] [address] Errol Underwood MD [address] [address] 03/16/2025 11:15 AM EDT Office [facility] Urology at [place] [address] [place] [address] Samuel Winslow MD [address] [place] [address] documented as of this encounter Visit Diagnoses Not on filedocumented in this encounter Care Teams Piercing Specialist Relationship Specialty Start Date End Date Errol Underwood MD [address] [facility] [place] [address] PCP - [facility] Attributed Provider 10/18/21 07/19/22 Errol Underwood MD [address] [place], [place] [id number] PCP - General Family Medicine 02/05/22 documented as of this encounter
--- OUTSIDE RECORDS SUMMARY | 2024-07-17 10:30 | XMS_ITS | Encounter Summary ---
Author Organization [facility] Address [address] [place] [address] Care Team Providers Care Personal Lines Insurance Agent Name Role Phone Errol Underwood MD Unavailable [phone] Errol Underwood MD Primary Care Provider Source Comments Please be aware that You and/or your organization are solely responsible for the use, security, privacy, and any decisions made with any information you receive from [employer] Reason for Visit * Reason Comments Med Refill Encounter Details Date Type Department Care Team (Late st Contact Info) Description 06/25/2022 Refill [facility] Well 65+ at [address] [address] Errol Underwood MD [address] [place] [address] Anxiety Social History Tobacco Use [...] Description 09/06/2024 11:00 AM EST Office Visit [facility] Well 65+ at [place] [address] [place] [address] Errol Underwood MD [address] [place], [place] [id number] 03/16/2025 11:15 AM EDT Office Visit [facility] Urology at [place] [address] [place] [address] Samuel Winslow MD [address] [place] [address] documented as of this encounter Visit Diagnoses Diagnosis Anxiety Anxiety state, unspecified documented in this encounter Care Teams Personal Lines Insurance Agent Relationship Specialty Start Date End Date Errol Underwood MD [address] [place], [place] [id number] PCP - [facility] Attributed Provider 10/18/21 07/19/22 Errol Underwood MD [address] [place], [place] [id number] PCP - General Family Medicine 02/05/22 documented as of this encounter
--- OUTSIDE RECORDS SUMMARY | 2024-07-17 10:30 | XMS_ITS | Encounter Summary ---
Author Organization Replaced by [facility] Address [address] [place] [address] Care Team Providers Care Immigration Case Worker Name Role Phone Unavailable Primary Care Provider Unavailabl e Source Comments Please be aware that You and/or your organization are solely responsible for the use, security, privacy, and any decisions made with any information you receive from [employer]Replaced by [facility] Encounter Details Date Type Department Care Team (Late st Contact Info) Description 07/23/2021 [facility] Encounter EST Converstion Department [address] [place] [address] Errol Underwood MD [address] [place] [address] Social History Tobacco Use Types [...] Description 09/06/2024 11:00 AM EST Office Visit Replaced by [facility] Well 65+ at [place] [address] [place] [address] Errol Underwood MD [address] [place] [address] 03/16/2025 11:15 AM EDT Office Visit [facility] Urology at [place] [address] [place] [address] Samuel Winslow MD [address] [place] [address] documented as of this encounter [...] Count 6.4 3.8 - 10.8 Thousand/u L [facility] Red Blood Cells 4.30 3.80 - 5.10 Million/uL [facility] Hemoglobin 13.4 11.7 - 15.5 g/dL [facility] Hematocrit 39.1 35.0 - 45.0 % [facility] MCV 90.9 80.0 - 100.0 fL [facility] MCH 31.2 27.0 - 33.0 pg [facility] MCHC 34.3 32.0 - 36.0 g/dL [facility] RDW 13.1 11.0 - 15.0 % [facility] Platelet Count 190 140 - 400 Thousand/u L [facility] MPV 10.4 7.5 - 12.5 fL [facility] Neutrophils Absolute 3,994 1,500 - 7,800 cells/uL [facility] Lymphocytes Absolute 1,510 850 - 3,900 cells/uL [facility] Monocytes Absolute 717 200 - 950 cells/uL [facility] Eosinophils Absolute 128 15 - 500 cells/uL [facility] Basophil Absolute 51 0 - 200 cells/uL [facility] Neutrophils, % 62.4 % [facility] Lymphocytes Absolute 23.6 % [facility] Monocytes % 11.2 % [facility] Eosinphils % 2.0 % [facility] Basophils 0.8 % [facility] 07/23/2021 8:33 AM EST 07/23/2021 8:33 AM EST Narrative [facility] - 07/24/2021 3:40 AM EST FASTING:YES Errol Underwood MD LAB BLOOD ORDERABLE S Performing Organization Address City/[facility] [address]/ZIP Co de Phone Number [facility] * Comprehensive Metabolic Panel (CMP) (07/23/2021 8:33 AM EST) [facility] Glucose 94 65 - 99 mg/dL [facility] Comment: ? Fasting reference interval BUN 14 7 - 25 mg/dL [facility] Creatinine 0.70 0.60 - 0.93 mg/dL [facility] Comment: For patients >49 years of age, the reference limit for Creatinine is approximately 13% higher for people identified as -Indonesian. eGFR Non-Afr. Indonesian 88 > OR = 60 mL/min/1 .73m2 [facility] eGFR 102 > OR = 60 mL/min/1 .73m2 [facility] BUN/Creatinine Ratio NOT APPLICABLE 6 - 22 (calc) [facility] Sodium 139 135 - 146 mmol/L [facility] Potassium 4.2 3.5 - 5.3 mmol/L [facility] Chloride 102 98 - 110 mmol/L [facility] Carbon Dioxide 31 20 - 32 mmol/L [facility] Calcium 9.0 8.6 - 10.4 mg/dL [facility] Protein, Total 6.5 6.1 - 8.1 g/dL [facility] Albumin 3.8 3.6 - 5.1 g/dL [facility] Globulin 2.7 1.9 - 3.7 g/dL (calc) [facility] A/G Ratio 1.4 1.0 - 2.5 (calc) [facility] Bilirubin, Total 0.7 0.2 - 1.2 mg/dL [facility] Alkaline Phosphatase 90 37 - 153 U/L [facility] AST 16 10 - 35 U/L [facility] ALT 12 6 - 29 U/L [facility] 07/23/2021 8:33 AM EST 07/23/2021 8:33 AM EST Narrative [facility] - 07/24/2021 3:40 AM EST FASTING:YES Errol Underwood MD LAB BLOOD ORDERABLE S Performing Organization Address City/[facility] [address]/ZIP Co de Phone Number [facility] * Lipid Panel (07/23/2021 8:33 AM EST) Cholesterol, Total 136 <200 mg/dL [facility] HDL Cholesterol 52 > OR = 50 mg/dL [facility] Triglycerides 94 <150 mg/dL [facility] LDL Cholesterol 66 mg/dL (calc) [facility] Comment: Reference range: <100 Desirable range <100 mg/dL for primary prevention; ?? <70 mg/dL for patients with CHD or diabetic patients with > or = 2 CHD risk factors. LDL-C is now calculated using the Kristy calculation, which is a validated novel method providing better accuracy than the Friedewald equation in the estimation of LDL-C. Stuart PARK et al. KIMBERLEY. 2013;310(19): 8329-1733 (http://education.Just around Us/faq/ODE702) Chol/HDL Ratio 2.6 <5.0 (calc) [facility] Non-HDL Cholesterol 84 <130 mg/dL (calc) [facility] Comment: For patients with diabetes plus 1 major ASCVD risk factor, treating to a non-HDL-C goal of <100 mg/dL (LDL-C of <70 mg/dL) is considered a therapeutic option. 07/23/2021 8:33 AM EST 07/23/2021 8:33 AM EST Narrative [facility] - 07/24/2021 3:40 AM EST FASTING:YES Errol Underwood MD LAB BLOOD ORDERABLE S [facility] documented in this encounter Visit Diagnoses Not on filedocumented in this encounter
--- OUTSIDE RECORDS SUMMARY | 2024-07-17 10:30 | XMS_ITS | Encounter Summary ---
Author Organization [facility] Address [address] [place] [address] Care Team Providers Care Marketing Automation Analyst Name Role Phone Unavailable Primary Care Provider Unavailabl e Source Comments Please be aware that You and/or your organization are solely responsible for the use, security, privacy, and any decisions made with any information you receive from [employer] Encounter Details Date Type Department Care Team (Late Contact Info) Description 11/22/2018 [facility] Encounter EST Converstion Department [address] [place] [address] ProviderKimani MD [address] [place], [place] [id number] Social History Tobacco Use Types Packs/Day Years Used Date Smoking Tobacco: Never Assessed Sex and Gender Information Value Date Recorded Sex Assigned at Not on file Gender Identity Not on file Sexual Orientation Not on file documented as of this encounter Plan of Treatment Upcoming Encounters Date Type Department Care Team ([facility] Contact Info) Description 09/06/2024 11:00 AM EST Office Visit [facility] Well 65+ at [place] [address] [place] [address] Errol Underwood MD [address] [facility] [place] [id number] 03/16/2025 11:15 AM EDT Office Visit [facility] Urology at [place] [address] [place] [address] Samuel Winslow MD [address] [place] [address] [address] [place] [address] documented as of this encounter Procedures Procedure Name Priority Date/Time Associated Diagnosis Comments URINALYSIS, COMPLETE W/REFLEX TO CULT COMPREHENSIVE Routine 11/22/2018 2:29 PM EDT REFLEXIVE URINE CULTURE Routine 11/22/2018 2:29 PM EDT documented in this encounter Results * REFLEXIVE URINE CULTURE (11/22/2018 2:29 PM EDT) Reflexive Urine Culture NO CULTURE INDICATED [facility] 11/22/2018 2:29 PM EDT 11/22/2018 2:30 PM EDT [email or web address] [place] - 11/23/2018 10:07 AM EDT FASTING:NO Historical Provider MD [facility] * (ABNORMAL) Urinalysis, Complete w/Reflex to Culture (11/22/2018 2:29 PM EDT) Color, Urine YELLOW YELLOW [facility] Appearance, Urine CLOUDY(A) CLEAR [facility] Specific [place], Urine 1.006 1.001 - 1.035 [facility] pH, Urine < OR = 5.0 5.0 - 8.0 [facility] Glucose NEGATIVE NEGATIVE [facility] Bilirubin, Urine NEGATIVE NEGATIVE [facility] Ketones, Urine NEGATIVE NEGATIVE [facility] Blood, Urine 1+(A) NEGATIVE [facility] Protein, Qual, Urine NEGATIVE NEGATIVE [facility] Nitrite, Urine NEGATIVE NEGATIVE [facility] Leukocyte Esterase, Urine NEGATIVE NEGATIVE [facility] WBC, Urine NONE SEEN < OR = 5 /HPF [facility] Red Blood Cells NONE SEEN < OR = 2 /HPF [facility] Squamous Epithelial Cells, Urine NONE SEEN < OR = 5 /HPF [facility] Bacteria, Urine NONE SEEN NONE SEEN /HPF [facility] Hyaline Casts, Urine NONE SEEN NONE SEEN /LPF [facility] 11/22/2018 2:29 PM EDT 11/22/2018 2:30 PM EDT Narrative [email or web address] [place] - 11/23/2018 10:07 AM EDT FASTING:NO Historical Provider LAB URINE ORDERAB LES [facility] documented in this encounter Visit Diagnoses Not on filedocumented in this encounter
--- OUTSIDE RECORDS SUMMARY | 2024-07-17 10:30 | XMS_ITS | Encounter Summary ---
Author Organization [facility] Address [address] [place] [address] Care Team Providers Care Solar Development Engineer Name Role Phone Errol Underwood MD Primary Care Provider [phone] Source Comments Please be aware that You and/or your organization are solely responsible for the use, security, privacy, and any decisions made with any information you receive from [employer] Encounter Details Date Type Department Care Team (Late st Contact Info) Description 08/20/2022 [facility]phone [facility] Well 65+ at [place] [address] [place] [address] Lora Mendoza LPN Social History [...] often do you attend chur ch or jain services? Never 08/20/2022 Do you belong to [...] in a skilled nursing (including now)? 2 08/19/2022 Sex and Gender [...] Office Visit [facility] Well 65+ at [place] [address] [place] [address] Errol Underwood MD [address] [place] [address] 03/16/2025 11:15 AM EDT Office Visit [facility]rology at [place] [address] [place] [address] Samuel Winslow MD [address] [place] [address] documented as of this encounter Visit Diagnoses Not on filedocumented in this encounter Additional Health Concerns Assessment Noted Time A fall risk assessment has been complete d for the patient 08/20/2022 9:51 AM EST documented as of this encounter Care Teams Solar Development Engineer Relationship Specialty Start Date End Date Errol Underwood MD PCP - General Family Medicine 02/05/22 documented as of this encounter
--- OUTSIDE RECORDS SUMMARY | 2024-07-17 10:30 | XMS_ITS | Encounter Summary ---
Author Organization [facility] Address [address] [place] [address] Care Team Providers Care Deputy Clerk Of Court Name Role Phone Errol Underwood MD Unavailable Source Comments Please be aware that You and/or your organization are solely responsible for the use, security, privacy, and any decisions made with any information you receive from [facility] Reason for Visit * Reason Comments Med Refill Encounter Details Date Type Department Care Team (Late st Contact Info) Description 11/18/2021 Refill [facility] Well 65+ at [address] [place] [address] [place] [address] Errol Underwood MD [address] [place] [address] Hypertension, unspecified type (Primary Dx) Social History Tobacco Use Types [...] Description 09/06/2024 11:00 AM EST Office Visit [facility] Well 65+ at [place] [address] [place] [address] Errol Underwood MD [address] [place] [address] 03/16/2025 11:15 AM EDT Office Visit [facility] Urology at [place] [address] [place] [address] Samuel Winslow MD [address] [place], [place] [id number] documented as of this encounter Visit Diagnoses Diagnosis Hypertension, unspecified type- Primary documented in this encounter Care Teams Deputy Clerk Of Court Relationship Specialty Start Date End Date Errol Underwood MD [address] [place], [place] [id number] PCP - PCN-[place] ACO REACH Attributed Provider 10/18/21 07/19/22 documented as of this encounter
--- OUTSIDE RECORDS SUMMARY | 2024-07-17 10:32 | XMS_ITS | Clinical Summary ---
Author Organization [facility] Address [address] [place] [address]. [place], [place] [address] [place] [address] Care Team Providers Care Jacquard Card Cutter Name Role Phone Unavailable Primary Care Provider Unavailabl e Social History Tobacco Use Types Packs/Day Years Used Date Smoking Tobacco: Never Assessed Comments Unknown Sex and Gender Information Value Date Recorded Sex Assigned at Not on file Legal Sex Female 5:44 PM RESEARCH DIRECTOR Gender Identity Not on file Sexual [...]
--- OUTSIDE RECORDS SUMMARY | 2024-07-17 10:32 | XMS_ITS | Encounter Summary ---
Author Organization [facility] Address [address] [place] [address]. [place], [place] [address] [place] [address] Care Team Providers Care Turkey Farmer Name Role Phone Unavailable Primary Care Provider Unavailabl e Encounter Details Date Type Department Care Team (Late st Contact Info) Description 04/05/[address] [facility] [address] [place] [address] , Generic Conversion, Social History Tobacco Use Types Packs/Day Years Used Date Smoking Tobacco: Never Assessed Comments Unknown Sex and Gender Information Value Date Recorded Sex Assigned at Not on file Legal Sex Female 5:44 PM FARM CROPS TEACHER Gender Identity Not on file Sexual Orientation Not on file documented as of this encounter Plan of Treatment Not on file documented as of this encounter Visit Diagnoses Not on filedocumented in this encounter
--- OUTSIDE RECORDS SUMMARY | 2024-07-17 10:32 | XMS_ITS | Encounter Summary ---
Author Organization [facility] Address [address] [place] [address]. [place], [place] [address] [place] [address] Care Team Providers Care Shipping Agent Name Role Phone Unavailable Primary Care Provider Unavailabl e Encounter Details Date Type Department Care Team (Late st Contact Info) Description 09/05/[address] [facility] [address] [facility] [place] [address] , Generic Conversion, Social History Tobacco Use Types Packs/Day Years Used Date Smoking Tobacco: Never Assessed Comments Unknown Sex and Gender Information Value Date Recorded Sex Assigned at Not on file Legal Sex Female 5:44 PM CHIEF CONTROLLER TOWER Gender Identity Not on file Sexual Orientation Not on file documented as of this encounter Plan of Treatment Not on file documented as of this encounter Visit Diagnoses Not on filedocumented in this encounter
--- OUTSIDE RECORDS SUMMARY | 2024-07-17 10:32 | XMS_ITS | Encounter Summary ---
Author Organization [facility] Address [address] [place] [address]. [place], [place] [address] [place] [address] Care Team Providers Care Skin Toggler Name Role Phone Unavailable Primary Care Provider Unavailabl e Encounter Details Date Type Department Care Team (Late st Contact Info) Description 08/29/[address] [facility] [address] [facility] [address] , Generic Conversion, Social History Tobacco Use Types Packs/Day Years Used Date Smoking Tobacco: Never Assessed Comments Unknown Sex and Gender Information Value Date Recorded Sex Assigned at Not on file Legal Sex Female 5:44 PM SYSTEM CONSULTANT Gender Identity Not on file Sexual Orientation Not on file documented as of this encounter Plan of Treatment Not on file documented as of this encounter Visit Diagnoses Not on filedocumented in this encounter
--- OUTSIDE RECORDS SUMMARY | 2024-07-17 10:32 | XMS_ITS | Encounter Summary ---
Author Organization [facility] Address [address] [place] [address]. [place] [address] [place] [address] Care Team Providers Care Banking Pin Adjuster Name Role Phone Unavailable Primary Care Provider Unavailabl e Encounter Details Date Type Department Care Team (Late st Contact Info) Description 05/08/[address] [facility] [address] [facility] [place] [address] Elie Grigsby MD [address] [place] [address] Social History Tobacco Use Types Packs/Day Years Used Date Smoking Tobacco: Never Assessed Comments Unknown Sex and Gender Information Value Date Recorded Sex Assigned at Not on file Legal Sex Female 5:44 PM INTENSIVE CARE NURSE Gender Identity Not on file Sexual Orientation Not on file documented as of this encounter Plan of Treatment Not on file documented as of this encounter Visit Diagnoses Not on filedocumented in this encounter
--- OUTSIDE RECORDS SUMMARY | 2024-07-17 10:32 | XMS_ITS | Encounter Summary ---
Author Organization [facility] Address [address] [place] [address]. [place] [address] [place] [address] Care Team Providers Care Nurse Transplant Name Role Phone Unavailable Primary Care Provider Unavailabl e Encounter Details Date Type Department Care Team (Late st Contact Info) Description 04/22/2006 Abstract [facility] [address] [place] [address] , Generic Conversion, Social History Tobacco Use Types Packs/Day Years Used Date Smoking Tobacco: Never Assessed Comments Unknown Sex and Gender Information Value Date Recorded Sex Assigned at Not on file Legal Sex Female 5:44 PM SEALER AIRCRAFT Gender Identity Not on file Sexual Orientation Not on file documented as of this encounter Plan of Treatment Not on file documented as of this encounter Visit Diagnoses Not on filedocumented in this encounter
--- OUTSIDE RECORDS SUMMARY | 2024-07-17 10:32 | XMS_ITS | Encounter Summary ---
Author Organization [facility] Address [address] [place] [address]. [place] [address] [place] [address] Care Team Providers Care Open Hearth Helper Name Role Phone Unavailable Primary Care Provider Unavailabl e Encounter Details Date Type Department Care Team (Late st Contact Info) Description 05/23/2004 Abstract [facility] [address] [place] [address] Elie Grigsby MD [address] [place] [address] Social History Tobacco Use Types Packs/Day Years Used Date Smoking Tobacco: Never Assessed Comments Unknown Sex and Gender Information Value Date Recorded Sex Assigned at Not on file Legal Sex Female 5:44 PM MANAGER ASSURANCE Gender Identity Not on file Sexual Orientation Not on file documented as of this encounter Plan of Treatment Not on file documented as of this encounter Visit Diagnoses Not on filedocumented in this encounter
--- OUTSIDE RECORDS SUMMARY | 2024-07-17 10:33 | XMS_ITS | Encounter Summary ---
Author Organization [facility] Address [address] [place] [address]. [place] [address] [place] [address] Care Team Providers Care Hospital Liaison Name Role Phone Unavailable Primary Care Provider Unavailabl e Encounter Details Date Type Department Care Team (Late st Contact Info) Description 07/22/1996 Abstract [facility] [address] [place] [address] , Generic Conversion, Social History Tobacco Use Types Packs/Day Years Used Date Smoking Tobacco: Never Assessed Comments Unknown Sex and Gender Information Value Date Recorded Sex Assigned at Not on file Legal Sex Female 5:44 PM HOIST MECHANIC Gender Identity Not on file Sexual Orientation Not on file documented as of this encounter Plan of Treatment Not on file documented as of this encounter Visit Diagnoses Not on filedocumented in this encounter
--- OUTSIDE RECORDS SUMMARY | 2024-07-17 10:33 | XMS_ITS | Referral Summary ---
Author Organization [facility] Address [address] [place] [address] Care Team Providers Care Transliterator Name Role Phone Unavailable Primary Care Provider Unavailabl e Source Comments Patient records contain information from all sites at [facility]. For routine questions regarding patient records, call [phone] during business hours, M-F 8:00 AM - 5:00 PM Central Time. 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 ALPRAZolam (XANAX) 0.5 mg tablet Take 0.5 mg by mouth at bedtime as needed for anxiety. Active aspirin [address] tablet Take 81 mg by mouth daily. Active atenolol (TENORMIN) 25 mg tablet Take 25 mg by mouth daily. Active atorvastatin (LIPITOR) 20 mg tablet Take 20 mg by mouth daily. Active azelastine (ASTELIN) 137 mcg/spray (0.1 %) nasal spray Administer 1 spray into each nostril 2 (two) times a day. Use in each nostril as directed Not using 12/15/18 Active calcium carbonate-vitam in D3 1,500 mg (600 mg calcium)-200 unit per tablet Take 1 tablet by mouth daily with breakfast. Active lansoprazole (PREVACID) [address] capsule Take 30 mg by mouth every morning before breakfast. Active metroNIDAZOLE (ROSADAN) 0.75 % gel APPLY TO FACE BID FOR 1 MONTH 1 9 Active TRANSDERM-SCOP 1 mg over 3 days CYNDY 1 PA EXT TO THE SKIN Q 72 H 1 9 Active Active Problems Problem Noted Date Diagnosed Date Anxiety 12/21/2018 Hypertensive Chronic Kidney Disease With Stage 1 Through Stage 4 Chronic Kidney Disease, Or Unspecified Chronic Kidney Disease 12/21/2018 Malignant Neoplasm Of Uterus Endometrial 019 Cancer Staging:Clinical stage from 12/21/2018:FIGO Stage IB(ycT1b, cN0(sn), cM0) - Signed by Rose Mary Gutierrez M.D. on 01/21/2019 Social History Tobacco Use Types Packs/Day Years Used Date Smoking Tobacco: Never Smokeless Tobacco: Never Alcohol Use Standard Drinks/Week Comments No 0 (1 standard drink = 0.6 oz pur e alcohol) [facility] Utilities Answer Date Recorded In the past 12 months has e true[x] Media, gas, oil, or water [employer] threatened to shut off services in your home? No 04/28/2024 Humiliation, Afraid, Rape, and Kick questionnair e Answer Date Recorded Within the last year, have y ou been afraid of your partner or ex-partner? No 02/26/2023 Within the last year, have y ou been humiliated or emotionally abused in other ways by your partner or ex-partner? No Within the last year, have y ou been kicked, hit, slapped, or otherwise physically hurt by your partner or ex-partner? No 02/26/2023 Within the last year, have y ou been raped or forced to have any kind of sexual activity by your partner or ex-partner? No 02/26/2023 Social Connection and Isolation Panel [NHANES] A nswer Date Recorded Frequency of Communication w ith Friends and Family Not on file 09/17/2019 Frequency of Social Gatherin gs with Friends and Family Not on file 09/17/2019 Attends Cheondoism Services Not on file Active Member of Clubs or Organizations Not on f ile 09/17/2019 How often do you attend meet ings of the clubs or organizations you belong to? 1 to 4 times per year 09/17/2019 Marital Status Not on file 09/17/2019 AUDIT-C Answer Date Recorded Frequency of Alcohol Consumption Not on file 09/17/2019 Q2: How many drinks containi ng alcohol do you have on a typical day when you are drinking? Patient declined 09/17/2019 Frequency of Binge Drinking Not on file 08/21 Overall Financial Resource Strain (CARDIA) Answe r Date Recorded How hard is it for you to pa y for the very basics like food, housing, medical care, and heating? Not hard at all 02/26/2023 [facility] [place] of Occupat ional Health - Occupational Stress Questionnaire Answer Date Recorded Feeling of Stress Not at all 01/17/2019 Exercise Vital Sign Answer Date Recorde d On average, how many days pe r week do you engage in moderate to strenuous exercise (like a brisk walk)? 5 days 04/28/2024 On average, how many minutes do you engage in exercise at this level? 60 min 04/28/2024 Hunger Vital Sign Answer Date Recorded Within the past 12 months, y ou worried that your food would run out before you got the money to buy more. Never true 04/28/20 24 Within the past 12 months, t he food you bought just didn't last and you didn't have money to get more. Never true 04/28/2024 PRAPARE - Transportation Answer Date Re corded In the past 12 months, has l ack of transportation kept you from medical appointments or from getting medications? No 04/19 In the past 12 months, has l ack of transportation kept you from meetings, work, or from getting things needed for daily living? No 04/28/2024 Nutrition Answer Date Recorded On average, how many serving s of fruits and vegetables do you eat per day (serving size is equal to 1 cup or approximately the size of a tennis ball)? 3-5 04/28/2024 Dental Answer Date Recorded Dental: Regular Dentist Yes 02/27/20 23 Employment Answer Date Recorded Employment status Retired 04/28/2024 Housing Stability Answer Date Recorded What is your living situation today? I have a [facility] place to live 04/28/2024 Education Answer Date Recorded What is the highest level of school you have completed or the highest degree you have received? 12th grade 01/17/2019 Comments No Sex and Gender Information Value Date Recorded Sex Assigned at Female 12/09/2018 1:18 PM CDT Legal Sex Female 8:44 AM CDT Gender Identity Female 12/09/2018 1:18 PM CDT Sexual Orientation Straight 12/09/2018 1: 18 PM CDT Last Filed Vital Signs Vital Sign Reading Time Taken Comments Blood Pressure 145/78 05/04/2024 11:08 AM EDT Pulse 73 05/04/2024 11:08 AM EDT Temperature 36.2 ??C (97.2 ??F) 05/04/2024 1 1:08 AM EDT Respiratory Rate 16 12/22/2018 7:00 AM EDT Oxygen Saturation 99% 09/23/2019 8:53 AM EST Inhaled Oxygen Concentration - - Weight 87.4 kg (192 lb 10.9 oz) 024 11:08 AM EDT Height 158 cm (5' 2.21 ) 05/04/2024 11: 08 AM EDT Body Mass Index 35.01 05/04/2024 11:08 AM EDT Plan of Treatment Not on file Procedures Procedure Name Priority Date/Time Associated Diagnosis Comments CREATININE WITH EGFR, S/P Routine 06/25/2021 3:50 PM EST Malignant Neoplasm Of Uterus (HCC) Nodule Vagina BASIC METABOLIC PANEL, S/P Routine 12/22/2018 5:50 AM EDT from Last 3 Months or Most Recently Relevant to Health Maintenance Results * Creatinine with Estimated GFR (06/25/2021 3:50 PM EST) Creatinine 0.72 0.59 - 1.04 mg/dL 06/25/2021 4:36 PM EST JX[facility] eGFR-Black/Afric an Nicaraguan >90 >=60 mL/min/BSA 06/25/2021 4:36 PM EST [facility] Comment: ----ADDITIONAL INFORMATION---- Estimated GFR calculated using the 2009 CKD_EPI creatinine equation. eGFR Non-Black/Hope n Nicaraguan 85 >=60 mL/min/BSA 06/25/2021 4:36 PM EST [facility] Comment: ----ADDITIONAL INFORMATION---- Estimated GFR calculated using the 2009 CKD_EPI creatinine equation. Blood (Blood, Venous) 06/25/2021 3:50 PM EST 06/25/2021 4:02 PM EST us Natasha Bear DMS, MPAS, P.A.-C. LAB BLOO D ADD-ON Final Result [facility] [address] [place] [address], [facility] [address] [place] [address] * BMP (Basic Metabolic Panel) (12/22/2018 5:50 AM EDT) Potassium, P 4.8 3.6 - 5.2 mmol/L 12/22/2018 6:50 AM EDT Sodium, P 136 135 - 145 mmol/L 12/22/2018 6:50 AM EDT Chloride, P 104 98 - 107 mmol/L 12/22/2018 6:50 AM EDT Bicarbonate, P 25 22 - 29 mmol/L 12/22/2018 6:50 AM EDT Anion Gap, P 7 7 - 15 12/22/2018 6:50 AM EDT BUN (Blood Urea Nitrogen), P 10 6 - 21 mg/dL 12/22/2018 6:50 AM EDT Creatinine 0.60 0.59 - 1.04 mg/dL 12/22/2018 6:50 AM EDT eGFR-Black/Afric an Nicaraguan >90 >=60 mL/min/BSA 12/22/2018 6:50 AM EDT Comment: ----ADDITIONAL INFORMATION---- Estimated GFR calculated using the 2009 CKD_EPI creatinine equation. eGFR Non-Black/Hope n Nicaraguan >90 >=60 mL/min/BSA 12/22/2018 6:50 AM EDT Comment: ----ADDITIONAL INFORMATION---- Estimated GFR calculated using the 2009 CKD_EPI creatinine equation. Calcium, Total, P 9.4 8.8 - 10.2 mg/dL 12/22/2018 6:50 AM EDT Glucose, P 136 70 - 140 mg/dL 12/22/2018 6:50 AM EDT Blood (Blood, Venous) 12/22/2018 5:50 AM EDT 12/22/2018 6:09 AM EDT us Donn Hilliard M.D. LAB BLOOD ADD-ON Final Resu lt [facility] [address] [place] [address], [facility] from Last 3 Months or Most Recently Relevant to Health Maintenance Insurance MEDICARE [facility] Advance Directives For more information, please contact: [phone] * Full Code (Latest Code Status on File) Date Activated Date Inactivated Comments 12/21/2018 5:05 PM 12/22/2018 1:15 PM Question Answer Comments Full Code: Discussed * Full Code Date Activated Date Inactivated Comments 12/21/2018 10:43 AM 12/21/2018 5:05 PM Question Answer Comments Full Code: Not Discussed Due to: Patient not available
--- OUTSIDE RECORDS SUMMARY | 2024-07-17 10:33 | XMS_ITS | Encounter Summary ---
Author Organization [facility] Address [address] [place] [address]. [place] [address] [place] [address] Care Team Providers Care Shellfish Weigher Name Role Phone Unavailable Primary Care Provider Unavailabl e Encounter Details Date Type Department Care Team (Late st Contact Info) Description 05/28/1998 Abstract [facility]VERSION [address] [place] [address] , Generic Conversion, Social History Tobacco Use Types Packs/Day Years Used Date Smoking Tobacco: Never Assessed Comments Unknown Sex and Gender Information Value Date Recorded Sex Assigned at Not on file Legal Sex Female 5:44 PM INFECTION CONTROL COORDINATOR Gender Identity Not on file Sexual Orientation Not on file documented as of this encounter Plan of Treatment Not on file documented as of this encounter Visit Diagnoses Not on filedocumented in this encounter
--- OUTSIDE RECORDS SUMMARY | 2024-07-17 10:33 | XMS_ITS | Encounter Summary ---
Author Organization [facility] Address [address] [place] [address]. 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
--- OUTSIDE RECORDS SUMMARY | 2024-07-17 10:33 | XMS_ITS | Encounter Summary ---
Author Organization [facility] Address [address] [place] [address]. [place] [address] [place] [address] Care Team Providers Care Manager Mobile Name Role Phone Unavailable Primary Care Provider Unavailabl e Encounter Details Date Type Department Care Team (Late st Contact Info) Description 10/18/1997 Abstract [facility] [address] [place] [address] , Generic Conversion, Social History Tobacco Use Types Packs/Day Years Used Date Smoking Tobacco: Never Assessed Comments Unknown Sex and Gender Information Value Date Recorded Sex Assigned at Not on file Legal Sex Female 5:44 PM ARTIFICIAL INTELLIGENCE SPECIALIST Gender Identity Not on file Sexual Orientation Not on file documented as of this encounter Plan of Treatment Not on file documented as of this encounter Visit Diagnoses Not on filedocumented in this encounter
--- OUTSIDE RECORDS SUMMARY | 2024-07-17 10:33 | XMS_ITS | Encounter Summary ---
Author Organization [facility] Address [address] [place] [address]. [place] [address] [place] [address] Care Team Providers Care Screw Machine Adjuster Automatic Name Role Phone Unavailable Primary Care Provider Unavailabl e Encounter Details Date Type Department Care Team (Late st Contact Info) Description 04/12/1999 Abstract [facility] CONVERSION [address] [place] [address] , Generic Conversion, Social History Tobacco Use Types Packs/Day Years Used Date Smoking Tobacco: Never Assessed Comments Unknown Sex and Gender Information Value Date Recorded Sex Assigned at Not on file Legal Sex Female 5:44 PM SUPERVISOR WATERWORKS Gender Identity Not on file Sexual Orientation Not on file documented as of this encounter Plan of Treatment Not on file documented as of this encounter Visit Diagnoses Not on filedocumented in this encounter
--- OUTSIDE RECORDS SUMMARY | 2024-07-17 10:33 | XMS_ITS | Encounter Summary ---
Author Organization [facility] Address [address] [place] [address]. [place] [address] [place] [address] Care Team Providers Care Driftman Name Role Phone Unavailable Primary Care Provider Unavailabl e Encounter Details Date Type Department Care Team (Late st Contact Info) Description 05/14/1999 Abstract [facility] CONVERSION [address] [place] [address] , Generic Conversion, Social History Tobacco Use Types Packs/Day Years Used Date Smoking Tobacco: Never Assessed Comments Unknown Sex and Gender Information Value Date Recorded Sex Assigned at Not on file Legal Sex Female 5:44 PM DANCE MASTER Gender Identity Not on file Sexual Orientation Not on file documented as of this encounter Plan of Treatment Not on file documented as of this encounter Visit Diagnoses Not on filedocumented in this encounter
--- OUTSIDE RECORDS SUMMARY | 2024-07-17 10:33 | XMS_ITS | Encounter Summary ---
Author Organization [facility] Address [address] [place] [address]. [place] [address] [place] [address] Care Team Providers Care Alcoholic Counselor Name Role Phone Unavailable Primary Care Provider Unavailabl e Encounter Details Date Type Department Care Team (Late st Contact Info) Description 03/07/1999 Abstract [facility]VERSION [address] [place] [address] , Generic Conversion, Social History Tobacco Use Types Packs/Day Years Used Date Smoking Tobacco: Never Assessed Comments Unknown Sex and Gender Information Value Date Recorded Sex Assigned at Not on file Legal Sex Female 5:44 PM BURLESQUE DANCER Gender Identity Not on file Sexual Orientation Not on file documented as of this encounter Plan of Treatment Not on file documented as of this encounter Visit Diagnoses Not on filedocumented in this encounter
--- OUTSIDE RECORDS SUMMARY | 2024-07-17 10:33 | XMS_ITS | Encounter Summary ---
Author Organization [facility] Address [address] [place] [address]. [place] [address] [place] [address] Care Team Providers Care Process Engineering Manager Name Role Phone Unavailable Primary Care Provider Unavailabl e Encounter Details Date Type Department Care Team (Late st Contact Info) Description 04/12/2002 Abstract [facility] CONVERSION [address] [place] [address] , Generic Conversion, Social History Tobacco Use Types Packs/Day Years Used Date Smoking Tobacco: Never Assessed Comments Unknown Sex and Gender Information Value Date Recorded Sex Assigned at Not on file Legal Sex Female 5:44 PM NURSE PARALEGAL Gender Identity Not on file Sexual Orientation Not on file documented as of this encounter Plan of Treatment Not on file documented as of this encounter Visit Diagnoses Not on filedocumented in this encounter
--- OUTSIDE RECORDS SUMMARY | 2024-07-17 10:33 | XMS_ITS | Encounter Summary ---
Author Organization [facility] Address [address] [place] [address]. [place] [address] [place] [address] Care Team Providers Care Printed Circuit Board Pcb Draftsman Name Role Phone Unavailable Primary Care Provider Unavailabl e Encounter Details Date Type Department Care Team (Late st Contact Info) Description 09/24/2001 Abstract [facility] CONVERSION [address] [place] [address] , Generic Conversion, Social History Tobacco Use Types Packs/Day Years Used Date Smoking Tobacco: Never Assessed Comments Unknown Sex and Gender Information Value Date Recorded Sex Assigned at Not on file Legal Sex Female 5:44 PM IT OPERATIONS MANAGER Gender Identity Not on file Sexual Orientation Not on file documented as of this encounter Plan of Treatment Not on file documented as of this encounter Visit Diagnoses Not on filedocumented in this encounter
--- OUTSIDE RECORDS SUMMARY | 2024-07-17 10:33 | XMS_ITS | Encounter Summary ---
Author Organization [facility] Address [address] [place] [address]. [place] [address] [place] [address] Care Team Providers Care Coach Builder Name Role Phone Unavailable Primary Care Provider Unavailabl e Encounter Details Date Type Department Care Team (Late st Contact Info) Description 10/09/1997 Abstract [facility]FL CONVERSION [address] [place] [address] , Generic Conversion, Social History Tobacco Use Types Packs/Day Years Used Date Smoking Tobacco: Never Assessed Comments Unknown Sex and Gender Information Value Date Recorded Sex Assigned at Not on file Legal Sex Female 5:44 PM AUTOMOBILE INSPECTOR Gender Identity Not on file Sexual Orientation Not on file documented as of this encounter Plan of Treatment Not on file documented as of this encounter Visit Diagnoses Not on filedocumented in this encounter
--- OUTSIDE RECORDS SUMMARY | 2024-07-17 10:33 | XMS_ITS | Encounter Summary ---
Author Organization [facility] Address [address] [place] [address]. [place] [address] [place] [address] Care Team Providers Care Crop Farm Helper Name Role Phone Unavailable Primary Care Provider Unavailabl e Encounter Details Date Type Department Care Team (Late st Contact Info) Description 05/20/1999 Abstract [facility] CONVERSION [address] [place] [address] , Generic Conversion, Social History Tobacco Use Types Packs/Day Years Used Date Smoking Tobacco: Never Assessed Comments Unknown Sex and Gender Information Value Date Recorded Sex Assigned at Not on file Legal Sex Female 5:44 PM DATA ENTRY ASSOCIATE Gender Identity Not on file Sexual Orientation Not on file documented as of this encounter Plan of Treatment Not on file documented as of this encounter Visit Diagnoses Not on filedocumented in this encounter
--- OUTSIDE RECORDS SUMMARY | 2024-07-17 10:33 | XMS_ITS | Encounter Summary ---
Author Organization [facility] Address [address] [place] [address]. [place] [address] [place] [address] Care Team Providers Care Compliance Spec Name Role Phone Unavailable Primary Care Provider Unavailabl e Encounter Details Date Type Department Care Team (Late st Contact Info) Description 03/14/2001 Abstract [facility] CONVERSION [address] [place] [address] , Generic Conversion, Social History Tobacco Use Types Packs/Day Years Used Date Smoking Tobacco: Never Assessed Comments Unknown Sex and Gender Information Value Date Recorded Sex Assigned at Not on file Legal Sex Female 5:44 PM CRIPPLE CHASER Gender Identity Not on file Sexual Orientation Not on file documented as of this encounter Plan of Treatment Not on file documented as of this encounter Visit Diagnoses Not on filedocumented in this encounter
--- OUTSIDE RECORDS SUMMARY | 2024-07-17 10:33 | XMS_ITS | Encounter Summary ---
Author Organization [facility] Address [address] [place] [address]. [place] [address] [place] [address] Care Team Providers Care Director Emergency Department Name Role Phone Unavailable Primary Care Provider Unavailabl e Encounter Details Date Type Department Care Team (Late st Contact Info) Description 03/23/2002 Abstract SFL CONVERSION [address] [place] [address] , Generic Conversion, Social History Tobacco Use Types Packs/Day Years Used Date Smoking Tobacco: Never Assessed Comments Unknown Sex and Gender Information Value Date Recorded Sex Assigned at Not on file Legal Sex Female 5:44 PM DRY PLASTERER Gender Identity Not on file Sexual Orientation Not on file documented as of this encounter Plan of Treatment Not on file documented as of this encounter Visit Diagnoses Not on filedocumented in this encounter
--- OUTSIDE RECORDS SUMMARY | 2024-07-17 10:33 | XMS_ITS | Encounter Summary ---
Author Organization [facility] Address [address] [place] [address]. [place] [address] [place] [address] Care Team Providers Care Manager Mba Name Role Phone Unavailable Primary Care Provider Unavailabl e Encounter Details Date Type Department Care Team (Late st Contact Info) Description 10/16/1997 Abstract SFL CONVERSION [address] [place] [address] , Generic Conversion, Social History Tobacco Use Types Packs/Day Years Used Date Smoking Tobacco: Never Assessed Comments Unknown Sex and Gender Information Value Date Recorded Sex Assigned at Not on file Legal Sex Female 5:44 PM RN SPINE Gender Identity Not on file Sexual Orientation Not on file documented as of this encounter Plan of Treatment Not on file documented as of this encounter Visit Diagnoses Not on filedocumented in this encounter
--- OUTSIDE RECORDS SUMMARY | 2024-07-17 10:33 | XMS_ITS | Encounter Summary ---
Author Organization [facility] Address [address] [place] [address]. [place] [address] [place] [address] Care Team Providers Care Occupational Therapy Aides Teacher Name Role Phone Unavailable Primary Care Provider Unavailabl e Encounter Details Date Type Department Care Team (Late st Contact Info) Description 09/28/1997 Abstract [facility] CONVERSION [address] [place] [address] , Generic Conversion, Social History Tobacco Use Types Packs/Day Years Used Date Smoking Tobacco: Never Assessed Comments Unknown Sex and Gender Information Value Date Recorded Sex Assigned at Not on file Legal Sex Female 5:44 PM MATERIALS PLANNER/PRODUCTION PLANNER Gender Identity Not on file Sexual Orientation Not on file documented as of this encounter Plan of Treatment Not on file documented as of this encounter Visit Diagnoses Not on filedocumented in this encounter
--- OUTSIDE RECORDS SUMMARY | 2024-07-17 10:33 | XMS_ITS | Clinical Summary ---
Author Organization [facility] Address [address] [place] [address] Care Team Providers Care Slime Plant Operator Helper Name Role Phone Unavailable Primary Care Provider Unavailabl e Source Comments Patient records contain information from all sites at [facility]. For routine questions regarding patient records, call [phone] during business hours, M-F 8:00 AM - 5:00 PM Central Time. Record requests for emergency care only can be directed to [phone] at any time.[facility] Allergies No known active allergies Medications * [...] by Rose Mary Gutierrez M.D. 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) from Last 3 Months Family History Medical History Relation Name Comments Coronary artery disease Father mindi pineda Diabetes Father mindi pineda Hyperlipidemia Father mindi pineda Hypertension Father mindi pineda Transient ischemic attack Father mindi pineda Relation Name Status Comments Father mindi pineda Alive Social History Tobacco Use Types Packs/Day Years Used Date Smoking Tobacco: Never Smokeless Tobacco: Never Alcohol Use Standard Drinks/Week Comments No 0 (1 standard drink = 0.6 oz pur e alcohol) [facility] Utilities Answer Date Recorded In the past 12 months has e [employer], gas, oil, or water [employer] threatened to shut off services in your [...] and Family Not on file 09/17/2019 Attends [employer] Not on file Active Member of [...] and heating? Not hard at all 02/26/2023 [facility] Occupat ional [facility] - Occupational Stress [...] Answer Date Recorded Dental: Regular Dentist Yes 08/10/20 23 Employment Answer Date Recorded Employment status Retired 04/28/2024 Housing Stability Answer Date Recorded What is your living situation today? I have a [facility] place to live 04/28/2024 Education Answer Date [...] 05/04/2024 11:08 AM EDT Plan of Treatment Health Maintenance Due Date Last Done Comments CT Colonography 1950 Cologuard 1950 FIT 1950 Hepatitis C Screening 1950 DTaP,Tdap,and Td Vaccines (1 - Tdap) 1970 Zoster Vaccines (1 of 2) 2001 Potassium Level 12/23/2019 12/22/2018, 12/09/2018 Sodium Level 12/23/2019 12/22/2018, 12/09/2018 Fasting Glucose for Diabetes Screening 12/22/2021 12/22/2018, 12/09/2018, 12/09/2018 Creatinine Level (Kidney Function Test) 06/25/2022 06/25/2021, 06/25/2021, 12/22/2018, Additional history exists Depression Screening (Annual PHQ-2) 07/20/2023 Fall Risk Screen (Annual) 07/20/2023 COVID-19 Vaccine ( season) 2024 Influenza Vaccine (#1) 2024 2, 04/28/2020, 05/20/2019, Additional history exists Office Visit for Blood Pressure Check / Re-check 08/04/2024 05/04/2024 Mammogram 10/24/2024 10/25/2023, 10/25/2023 Colonoscopy 08/08/2031 08/08/2021 Colorectal Cancer Screening 08/08/2031 Pneumococcal vaccine (50+ years) Completed 07/25/2019, 06/29/2018 Bone Density Scan (Osteoporosis Screen) Discontinued 10/08/2022 IPV Vaccines Aged Out No longer eligi ble [...] 06/25/2021 4:36 PM EST [facility] eGFR-Black/Afric an Italian >90 >=60 mL/min/BSA 06/25/2021 4:36 PM EST [facility] Comment: ----ADDITIONAL INFORMATION---- Estimated GFR calculated using the 2009 CKD_EPI creatinine equation. eGFR Non-Black/Hope n Italian 85 >=60 mL/min/BSA 06/25/2021 4:36 PM EST [facility] Comment: ----ADDITIONAL INFORMATION---- Estimated GFR calculated using the 2009 CKD_EPI creatinine equation. Blood (Blood, Venous) 06/25/2021 3:50 PM EST 06/25/2021 4:02 PM EST Natasha [facility] [place], [facility], PRebecaAAlexandra. LAB BLOO D ADD-ON Final Result Performing Organization Address City/[facility]/ZIP Co de Phone Number [facility] [address] [place] [address], [place] [facility] [address] [place] [address] * BMP (Basic Metabolic Panel) (12/22/2018 5:50 [...] mg/dL 12/22/2018 6:50 AM EDT eGFR-Black/Afric an Italian >90 >=60 mL/min/BSA 12/22/2018 6:50 AM EDT Comment: ----ADDITIONAL INFORMATION---- Estimated GFR calculated using the 2009 CKD_EPI creatinine equation. eGFR Non-Black/Hope n Italian >90 >=60 mL/min/BSA 12/22/2018 6:50 AM EDT Comment: ----ADDITIONAL INFORMATION---- Estimated GFR calculated using the 2009 CKD_EPI creatinine equation. Calcium, Total, P 9.4 8.8 - 10.2 mg/dL 12/22/2018 6:50 AM EDT Glucose, P 136 70 - 140 mg/dL 12/22/2018 6:50 AM EDT Blood (Blood, Venous) 12/22/2018 5:50 AM EDT 12/22/2018 6:09 AM EDT us Donn Hilliard M.D. LAB BLOOD ADD-ON Final Resu lt [facility] [address] [place] [address], [facility] from Last 3 Months or Most Recently Relevant to Health Maintenance Insurance MEDICARE [facility] Advance Directives For more information, please contact: [phone] * Full Code (Latest Code Status on File) Date Activated Date Inactivated Comments 12/21/2018 5:05 PM 12/22/2018 1:15 PM Question Answer Comments Full Code: Discussed * Full Code Date Activated Date Inactivated Comments 12/21/2018 10:43 AM 12/21/2018 5:05 PM Question Answer Comments Full Code: Not Discussed Due to: Patient not available
--- OUTSIDE RECORDS SUMMARY | 2024-07-17 10:33 | XMS_ITS | Encounter Summary ---
Author Organization [facility] Address [address] [place] [address]. [place] [address] [place] [address] Care Team Providers Care Rail Signal Designer Name Role Phone Unavailable Primary Care Provider Unavailabl e Encounter Details Date Type Department Care Team (Late st Contact Info) Description 04/05/1999 Abstract [facility] CONVERSION [address] [place] [address] , Generic Conversion, Social History Tobacco Use Types Packs/Day Years Used Date Smoking Tobacco: Never Assessed Comments Unknown Sex and Gender Information Value Date Recorded Sex Assigned at Not on file Legal Sex Female 5:44 PM TRADE MARK EXAMINER Gender Identity Not on file Sexual Orientation Not on file documented as of this encounter Plan of Treatment Not on file documented as of this encounter Visit Diagnoses Not on filedocumented in this encounter
--- OUTSIDE RECORDS SUMMARY | 2024-07-17 10:33 | XMS_ITS | Encounter Summary ---
Author Organization [facility] Address [address] [place] [address]. [place] [address] [place] [address] Care Team Providers Care Dev Manager Name Role Phone Unavailable Primary Care Provider Unavailabl e Encounter Details Date Type Department Care Team (Late st Contact Info) Description 10/16/1997 Abstract [facility] CONVERSION [address] [place] [address] , Generic Conversion, Social History Tobacco Use Types Packs/Day Years Used Date Smoking Tobacco: Never Assessed Comments Unknown Sex and Gender Information Value Date Recorded Sex Assigned at Not on file Legal Sex Female 5:44 PM ROTARY DRILLER HELPER Gender Identity Not on file Sexual Orientation Not on file documented as of this encounter Plan of Treatment Not on file documented as of this encounter Visit Diagnoses Not on filedocumented in this encounter
--- OUTSIDE RECORDS SUMMARY | 2024-07-17 10:33 | XMS_ITS | Encounter Summary ---
Author Organization [facility] Address [address] [place] [address]. [place] [address] [place] [address] Care Team Providers Care Ice Cream Freezer Helper Name Role Phone Unavailable Primary Care Provider Unavailabl e Encounter Details Date Type Department Care Team (Late st Contact Info) Description 09/23/1997 Abstract [facility] CONVERSION [address] [place] [address] , Generic Conversion, Social History Tobacco Use Types Packs/Day Years Used Date Smoking Tobacco: Never Assessed Comments Unknown Sex and Gender Information Value Date Recorded Sex Assigned at Not on file Legal Sex Female 5:44 PM CREAM SEPARATOR OPERATOR Gender Identity Not on file Sexual Orientation Not on file documented as of this encounter Plan of Treatment Not on file documented as of this encounter Visit Diagnoses Not on filedocumented in this encounter
--- OUTSIDE RECORDS SUMMARY | 2024-07-17 10:33 | XMS_ITS | Encounter Summary ---
Author Organization [facility] Address [address] [place] [address]. [place] [address] [place] [address] Care Team Providers Care Housekeeper Head Name Role Phone Unavailable Primary Care Provider Unavailabl e Encounter Details Date Type Department Care Team (Late st Contact Info) Description 10/25/2002 Abstract [facility] CONVERSION [address] [place] [address] , Generic Conversion, Social History Tobacco Use Types Packs/Day Years Used Date Smoking Tobacco: Never Assessed Comments Unknown Sex and Gender Information Value Date Recorded Sex Assigned at Not on file Legal Sex Female 5:44 PM COPPER MINER Gender Identity Not on file Sexual Orientation Not on file documented as of this encounter Plan of Treatment Not on file documented as of this encounter Visit Diagnoses Not on filedocumented in this encounter
--- OUTSIDE RECORDS SUMMARY | 2024-07-17 10:33 | XMS_ITS | Encounter Summary ---
Author Organization [facility] Address [address] [place] [address]. [place] [address] [place] [address] Care Team Providers Care Engineering Assistant Name Role Phone Unavailable Primary Care Provider Unavailabl e Encounter Details Date Type Department Care Team (Late st Contact Info) Description 09/28/1996 Abstract [facility] CONVERSION [address] [place] [address] , Generic Conversion, Social History Tobacco Use Types Packs/Day Years Used Date Smoking Tobacco: Never Assessed Comments Unknown Sex and Gender Information Value Date Recorded Sex Assigned at Not on file Legal Sex Female 5:44 PM AUCTION CLERK Gender Identity Not on file Sexual Orientation Not on file documented as of this encounter Plan of Treatment Not on file documented as of this encounter Visit Diagnoses Not on filedocumented in this encounter
--- OUTSIDE RECORDS SUMMARY | 2024-07-17 10:33 | XMS_ITS | Encounter Summary ---
Author Organization [facility] Address [address] [place] [address]. [place] [address] [place] [address] Care Team Providers Care Fruit Distributor Name Role Phone Unavailable Primary Care Provider Unavailabl e Encounter Details Date Type Department Care Team (Late st Contact Info) Description 04/16/1994 Abstract [facility] CONVERSION [address] [place] [address] , Generic Conversion, Social History Tobacco Use Types Packs/Day Years Used Date Smoking Tobacco: Never Assessed Comments Unknown Sex and Gender Information Value Date Recorded Sex Assigned at Not on file Legal Sex Female 5:44 PM SUPPLY CHAIN ANALYST Gender Identity Not on file Sexual Orientation Not on file documented as of this encounter Plan of Treatment Not on file documented as of this encounter Visit Diagnoses Not on filedocumented in this encounter
--- OUTSIDE RECORDS SUMMARY | 2024-07-17 10:33 | XMS_ITS | Encounter Summary ---
Author Organization [facility] Address [address] [place] [address]. [place] [address] [place] [address] Care Team Providers Care Snaker Name Role Phone Unavailable Primary Care Provider Unavailabl e Encounter Details Date Type Department Care Team (Late st Contact Info) Description 04/04/1999 Abstract [facility] CONVERSION [address] [place] [address] , Generic Conversion, Social History Tobacco Use Types Packs/Day Years Used Date Smoking Tobacco: Never Assessed Comments Unknown Sex and Gender Information Value Date Recorded Sex Assigned at Not on file Legal Sex Female 5:44 PM BARREL CENTERER Gender Identity Not on file Sexual Orientation Not on file documented as of this encounter Plan of Treatment Not on file documented as of this encounter Visit Diagnoses Not on filedocumented in this encounter
--- OUTSIDE RECORDS SUMMARY | 2024-07-17 10:33 | XMS_ITS | Encounter Summary ---
Author Organization [facility] Address [address] [place] [address]. [place] [address] [place] [address] Care Team Providers Care Forester Silviculture Name Role Phone Unavailable Primary Care Provider Unavailabl e Encounter Details Date Type Department Care Team (Late st Contact Info) Description 09/19/1997 Abstract [facility] CONVERSION [address] [place] [address] , Generic Conversion, Social History Tobacco Use Types Packs/Day Years Used Date Smoking Tobacco: Never Assessed Comments Unknown Sex and Gender Information Value Date Recorded Sex Assigned at Not on file Legal Sex Female 5:44 PM PUBLIC HEALTH NUTRITIONIST Gender Identity Not on file Sexual Orientation Not on file documented as of this encounter Plan of Treatment Not on file documented as of this encounter Visit Diagnoses Not on filedocumented in this encounter
--- OUTSIDE RECORDS SUMMARY | 2024-07-17 10:33 | XMS_ITS | Encounter Summary ---
Author Organization [facility] Address [address] [place] [address]. [place] [address] [place] [address] Care Team Providers Care Ciso Name Role Phone Unavailable Primary Care Provider Unavailabl e Encounter Details Date Type Department Care Team (Late st Contact Info) Description 04/14/2002 Abstract [facility] CONVERSION [address] [place] [address] , Generic Conversion, Social History Tobacco Use Types Packs/Day Years Used Date Smoking Tobacco: Never Assessed Comments Unknown Sex and Gender Information Value Date Recorded Sex Assigned at Not on file Legal Sex Female 5:44 PM SOCIAL SERVICE WORKER Gender Identity Not on file Sexual Orientation Not on file documented as of this encounter Plan of Treatment Not on file documented as of this encounter Visit Diagnoses Not on filedocumented in this encounter
--- OUTSIDE RECORDS SUMMARY | 2024-07-17 10:33 | XMS_ITS | Encounter Summary ---
Author Organization [facility] Address [address] [place] [address]. [place] [address] [place] [address] Care Team Providers Care Director Of User Experience Name Role Phone Unavailable Primary Care Provider Unavailabl e Encounter Details Date Type Department Care Team (Late st Contact Info) Description 04/20/2002 Abstract [facility]FL CONVERSION [address] [place] [address] , Generic Conversion, Social History Tobacco Use Types Packs/Day Years Used Date Smoking Tobacco: Never Assessed Comments Unknown Sex and Gender Information Value Date Recorded Sex Assigned at Not on file Legal Sex Female 5:44 PM ZOOGLER Gender Identity Not on file Sexual Orientation Not on file documented as of this encounter Plan of Treatment Not on file documented as of this encounter Visit Diagnoses Not on filedocumented in this encounter
--- OUTSIDE RECORDS SUMMARY | 2024-07-17 10:34 | XMS_ITS ---
Author Organization [facility] Address [address] [place] [address] Care Team Providers Care Winder Hand Name Role Phone Unavailable Primary Care Provider Unavailabl e Active Problems * This document contains information received from the source organization and may not represent a complete record from that organization. Problem Noted Date Diagnosed Date Anxiety 12/21/2018 Hypertensive Chronic Kidney Disease With Stage 1 Through Stage 4 Chronic Kidney Disease, Or Unspecified Chronic Kidney Disease 12/21/2018 Malignant Neoplasm Of Uterus Endometrial 019 Cancer Staging:Clinical stage from 12/21/2018:FIGO Stage IB(ycT1b, cN0(sn), cM0) - Signed by Roes Mary Gutierrez M.D. on 01/21/2019 Current Oncology Plans No current plan information found. Past Plans No past plan information found. Radiation Treatments * Plan Last Treated On Elapsed Days Fractions Treated Prescribed Fraction Dose Prescribed Total Dose Vag Cyl HDR 01/28/2019 4 3 of 3 700 cGy 2,100 cG y Reference Point Last Treated On Elapsed Days Session Dose Total Dose Vag Cuff 01/28/2019 4 700 cGy 2,100 cGy Treatment Summaries Malignant Neoplasm Of Uterus Endometrial (HCC)* Images from the original note were not included. Your Survivorship Care Plan Provided by [facility] on 05/17/19 General Information Patient name Claudia Desai (home) Date of 1950 Introduction This is your personal survivorship care plan. It is both a summary of your treatment history as well as a follow-up plan to guide you through the management of your continued medical care. The plan was developed by a multidisciplinary team of [facility] cancer providers to help you understand, discuss, and plan post-treatment needs with your healthcare providers, including your primary care team. It includes detailed medical information regarding your treatment as well as information relating to potential short and long-term side- effects post-treatment. It also provides specific tools and directionfor self- care, including advice on wellness that encompasses both the physical and emotional aspects of your journey to recovery. What is Survivorship? The most widely used definition of survivorship care involves the following elements: 1. Prevention of recurrent and new cancers, and of other late effects; 2. Surveillance for cancer spread, recurrence, or second cancers; assessment of medical and psychosocial late effects; 3. Intervention for consequences of cancer and its treatment, for example: medical problems such aslymphedema and sexual dysfunction; symptoms, including pain and fatigue; psychological distress experienced by cancer survivors and their caregivers; and concerns related to employment, insurance, and disability; and 4. Coordination between specialists and primary care providers to ensure that all of the survivors health needs are met. Care Team Surgeon Rose Mary Gutierrez M.D. Your surgeon is your point of contact for any questions regarding your incision. Your Survivorship Provider Inna Turner PA-C Your survivorship provider is your contact for any questions or concerns about your cancer Medical Oncologist No care stationary steam engineer to display Your oncologist is your point of contact for any questions regarding the adverse effects of intravenous (I.V.) and oral cancer treatments (e.g. Nausea, vomiting, tingling in your hands/feet). Primary Care Physician No primary care provider on file. Cancer Diagnosis Information Diagnosis Malignant Neoplasm Of Uterus Endometrial (HCC) Diagnosis date 12/16/2018 Staging information Cancer Staging Malignant Neoplasm Of Uterus Endometrial (HCC) Staging form: Corpus Uteri - Carcinoma And Carcinosarcoma, AJCC 8th Edition - Clinical stage from 12/21/2018: FIGO Stage IB (ycT1b, cN0(sn), cM0) Background Information Family history Cancer-related family history is not on file. Significant medical conditions has a past medical history of Anxiety (12/21/2018), Anxiety Generalized Disorder, Gastroesophageal Reflux Disease NOS, Hyperlipidemia, Hypertension And Chronic Kidney Disease Stage 1 To 4 (12/21/2018), Hypertension NOS, Malignant Neoplasm Of Uterus (HCC) (november 2018), and Malignant Neoplasm Of Uterus Endometrial (HCC) (12/16/2018). Alcohol use reports no history of alcohol use. Tobacco use reports that she has never smoked. She has never used smokeless tobacco. Treatment Summary Cancer Surgeries Malignant Neoplasm Of Uterus Endometrial (HCC) Chemotherapy and Supportive Care Treatment History [No treatment plan] Lifetime Dose History Lifetime Dose Tracking No doses have been documented on this patient for the following tracked chemicals: doxorubicin, epirubicin, idarubicin, daunorubicin, mitoxantrone, bleomycin, doxorubicin HCl pegylated liposomal, daunorubicin citrate liposomal, Pediatric total anthracycline, Adult total anthracycline Radiation Therapy History Start date 01/24/2019 End Date 01/28/2019 Total dose / fractions Vag Cuff - Planned Dose 2,100cGy - Actual Dose 2,100cGy Brachytherapy (internal radiation) High dose rate (temporary) brachytherapy External-beam therapy external-beam radiation type: None Wellness Recommendations Healthy food choices include a wide variety of fruits, vegetables, whole grains, poultry, and fish while minimizing refined grains, processed and red meats, desserts, and high?fat dairy products. Exercise after cancer treatment improves quality of life, fatigue, mood, muscle strength, and physical functioning. It also decreases the risk of cancer recurrence and the risk of cardiovascular disease. Work up to exercising 30 minutes/day at least 5 days/week, and strive to achieve a healthy weight (BMI 18.5?25). Stress management tools such as meditation, prayer, and breathing exercises may be helpful. If you develop feelings of worry, anxiety, sadness, or hopelessness that persist for > 2 weeks, talk to a health care provider. Schedule of Surveillance Testing and Visits The frequency and nature of follow-up care is individualized based on the type of cancer, the type of treatment received, and the person???s overall health, including possible treatment-related problems. We are happy to provide Surveillance Guidelines for endometrial cancer. These guidelines are a summary of different organizations (NCCN, SGO, ACOG) and a critical review of the literature but are notmeant to replace clinical judgment. Follow up recommendations Every 4 months for three years, then annually: Complete history with review of systems Physical examination including vaginal vault visualization and bimanual rectal/ vaginal exam We do not recommend routine surveillance pap smears for asymptomatic patients Targeted investigation if symptomatic (CT/MRI) Referral for genetic evaluation if the patient has a significant family history of endometrial and/or colon cancer, if the patient was found to have abnormal immunohistochemical staining (IHC) on their endometrial cancer tumor, or if they have a known family history of Coleman syndrome Signs and Symptoms of recurrent disease: Vaginal bleeding New pelvic or abdominal pain or bloating New swelling of a leg Any new pain that is persistent or progressive Persistent cough or shortness of breath Bladder symptoms or changes in bowel habits Make an appointment with your doctor if you have any persistent signs or symptoms that concern you. Additional information from your provider: Follow-up care with your Primary Care Physician (PCP) Follow?up care with your primary care physician is recommended for age?appropriate cancer screening, for monitoring blood pressure, cholesterol, blood sugar, weight, and for other medical conditions. Ongoing Side effects Fatigue Some cancer survivors report that they still feel tired or worn out. In fact, fatigue is one of themost common complaints during the first year of recovery. Rest or sleep does not cure the type of fatigue that you may have. Doctors do not know its exact causes. The causes of fatigue are different for people who are receiving treatment than they are for those who have finished. Fatigue during treatment can be caused by cancer therapy. Other problems can also play a part in fatigue, like anemia (having too few red blood cells) or having a weak immune system. Poor nutrition, not drinking enoughliquids, and depression can also be causes. Pain can make fatigue worse. Researchers are still learning about what may cause fatigue after treatment. How long will fatigue last? There is no normal pattern. For some, fatigue gets better over time. Some people feel very frustrated when fatigue lasts longer than they think it should and when it gets in the way of their normal routine. They may also worry that their friends, family, and coworkers will get upset with them if they continue to show signs of fatigue. Getting Help Talk with your doctor or nurse about what may be causing your fatigue and what can be done about it. Ask about: -How any medicines you are taking or other medical problems you have might affect your energy level -How you can control your pain, if pain is a problem for you -Exercise programs that might help, such as walking -Relaxation exercises -Changing your diet or drinking more fluids -Medicines or nutritional supplements that can help -Specialists who might help you, such as physical therapists, occupational therapists, seat installer, or mental health care providers Coping With Fatigue Here are some ideas: -Plan your day. Be active at the time of day when you feel most alert and energetic. -Save your energy by changing how you do things. For example, sit on a stool while you cook or washdishes. -Take short naps or rest breaks between activities. -Try to go to sleep and wake up at the same time every day. -Do what you enjoy, but do less of it. Focus on old or new interests that don???t tire you out. Forexample, try to read something brief or listen to music. -Let others help you. They might cook a meal, run errands, or do the laundry. If no one offers, askfor what you need. Friends and family might be willing to help but may not know what to do. -Choose how to spend your energy. Try to let go of things that don???t matter as much now. -Think about joining a support group. Talking about your fatigue with others who have had the same problem may help you find new ways to cope. Changes in Weight and Eating Habits Some survivors who have had certain kinds of chemotherapy or medicines have problems with weight gain. Sometimes the added pounds stay on even when treatment ends. Cancer survivors who have had certain types of chemotherapy gain weight in a different way--they may lose muscle and gain fat tissue. Unfortunately, the usual ways people try to lose weight may not work for them. Try to be patient with yourself. Look for the positive things that you can control, such as eating a healthy diet. Try to focus on the fact that treatment is over, and you are trying to get stronger with time. Some cancer survivors have the opposite problem: they have no desire to eat, and they lose weight. Some men say that weight loss or loss of muscle tone is a bigger concern for them than weight gain. Managing a Healthy Weight For weight issues, ask your doctor or nurse about: -Doing strength-building exercises, if you have lost muscle or gained fat tissue -Talking to a dietitian or crowd controller who can help you plan a healthy diet that won???t add extrapounds Regaining a Lost Appetite Here are some tips that have helped others improve their appetites: -Start with small meals. Five small meals a day may be easier to manage than three larger ones. -Focus on your favorite foods. If the thought of eating still lacks appeal, try the foods you really liked before treatment to jump-start your appetite. Try adding some fresh fruit, juice, or other flavoring to improve the taste. -Stay active. A short walk before a meal can help you feel hungry. Sexual Changes Sexuality is part of being human. Love, affection and intimacy all play a role in healthy relationships. Cancer and its treatments may change the way you view your body and your ability to be intimate with your partner. What you can do: -After treatment, ask your health care provider about sexual changes you can expect. -Be open and communicate with your partner about your feelings, concern and needs. You may need to find new ways to be intimate and to express your love. -Talk with your health care provider about any concerns you may have. You also may find it helpful to speak with a provider who specializes in sexuality. Understand the Emotional Impact After cancer treatment, you may feel your life has changed in some ways that are hard to explain. It may seem hard to get back to ???normal.?? It is common for people who have had cancer to feel many emotions, including anxiety, depression, anger, grief or guilt. These are reasonable responses to a big health change. To help handle these emotions, you may need to decide what ???normal?? means to you afterall the changes you have gone through. Doing this may help you find a new way to live that brings you more cindy and meaning. If you feel emotionally overwhelmed after your cancer treatment, tell your health care provider. She or he may be able to connect you with a support group or other support services. Your health care provider may also offer you treatment choices for specific concerns or refer to you a mental health p rofessional. Anxiety Anxiety is a common emotion among people who have had cancer. Fear of cancer coming back often causes anxiety. Because of this, follow-up testing can be stressful. Other common sources of anxiety include job issues, concerns about money or relationships, and worries about the physical effect of cancer treatment. What you can do -Talk about your worries with someone you trust. -Try stress management tools, such as meditation, prayer and regular exercise. -Learn the signs that may tell you your cancer has returned. Learn what you can do to lower your cancer risk. -Focus on the healthy choices you can make in areas of your life that you can control. If anxiety makes your daily life difficult, see your health care provider. Depression After cancer treatment, you may have many different feelings as you think about what you have been through. Some of these feelings may not be positive. That is normal. However, negative feelings thatstay with you for more than two weeks or get in the way of your daily life can be signs of depression. If this happens to you, talk to your health care provider. Symptoms of depression include: -Sadness -Hopelessness -Loss of interest in activities -Irritability -Difficulty Sleeping -Change in appetite -Difficulty concentrating -Problems thinking clearly Anger Many cancer survivors feel a sense of anger. Cancer may change many parts of your life, including relationships, school, work, and custodial plans. Anger is a normal response to those changes. What you can do It is important to express your anger in a healthy way. Talk about the way you are feeling with someone you trust, Think about whether you can talk with: -Friends -Family members -Other people who have been through cancer -A professional counselor -Your health care provider Spiritual issues A cancer diagnosis may change your spirituality. You may find it to be stronger and deeper and fromthe challenges you have overcome, or you may feel abandoned and struggle with the question Why me? What you can do - Take time to think about your spirituality. Try to find a sense of peace within your own spiritual framework. -Talk with your spiritual or improvement leader to help guide you through some of the questions raised by your illness. -Consider using the Date Night Sitter staff at [facility] to help you with your spiritual questions. Back to Work Going back to work can be a challenging transition after cancer treatment. If you have questions about employment, ask your health care provider to refer you to a [facility] social work nurse. He or shecan give you workplace information. Americans with Disabilities Act If you believe that your physical function is temporarily or permanently affected by cancer or its treatment, you should know about the Americans with Disabilities Act, or ADA. ADA bans discrimination against qualified employees with disabilities who can perform the essential functions of their job, with or without reasonable accommodations. Cancer survivors who return to work are due any reasonable change or adjustment in their work environment that allows a person with a disability to have equal opportunities. A social work nurse can help you look at your situation and the Americans with Disabilities Act. Genetic testing and employment Sometimes cancer diagnosis and treatment involves genetic testing. This information becomes a part of your medical record. It is against the law for an employer to discriminate against a job applicant or a current or former employee because of genetic information Some of the information provided in this care plan was provided by the [place] Department of Health and Human Services and National Cancer [employer]. (2014) Facing Forward: Life after cancer treatment. NIH Publications No. 14-2424. Resources [employer] [employer] The [place] [employer] is a non-profit organization that has developed many resources for patients and families dealing with a cancer diagnosis. http://www.cancer.org National Cancer [employer] The National [employer] (NCI) is part of the [employer] and is a governmental organization with a mission focused on cancer research and training. The NCI has developed many patient resources related to cancer. Included here are their links to their Facing Forward document which is an electronic resource focused on helping patients negotiate their lives after cancer treatment. http://www.cancer.gov http://www.cancer.gov/cancertopics/coping/azbe-pvyqw-oubjqnpbf [facility] Cancer Education Program www.[employer].org/cancer-education Cancer Support Community www.cancersupportcommunity.org/?gclid=KGia-8-9bMWIETyDdZdozzUB4n [facility] Living with Cancer blog www.[employer]/livingwithcancer Glossary Of Terms: Cancer recurrence: After any treatment for cancer, there is always a risk that the cancer can be detected again (recurrence). This is true of virtually any cancer. Recurrence can happen either at/near where the original tumor was found (regional recurrence) or at a distant location such as the liver or lungs (metastatic disease). Laparoscopic: Laparoscopy is a technique whereby operations in the abdomen can be performed using a camera and several small incisions. Lymph node: Small structures (approximately the size of a lentil) which are present in many places throughout the human body. These structures play a role in filtering fluids and play an important role in your immune system. When cancer begins to spread, it often is first captured in lymph nodes. When cancer is found within lymph nodes, this usually implies a worse prognosis compared to a cancer which has not spread to lymph nodes. Oncologist: A physician who specializes in the non-surgical treatment of cancer. Pathologist: A physician who specializes in analyzing tissues removed from the human body.. Resection: An operation where some part of the body is surgically removed. Screening: A screening examination is any test which is performed to detect a disease process in a patient whois at normal risk for that disease. Surveillance: A surveillance examination is any test which is performed to detect a disease process in a patient who is at elevated risk for that disease. For example, after treatment for colon cancer, a patient is at elevated risk for developing a new colon cancer (compared with the average individual in the population).
--- OUTSIDE RECORDS SUMMARY | 2024-07-17 10:34 | XMS_ITS | Encounter Summary ---
Author Organization [facility] Address [address] [place] [address] Care Team Providers Care Ad Taker Name Role Phone Unavailable Primary Care Provider Unavailrob e Reason for Referral * Outpatient (Routine) - Authorized Specialty Diagnoses / Procedures Referred By Ryley pantoja Referred To Contact Diagnoses Malignant Neoplasm Of Uterus Endometrial (HCC) Procedures DX Chest AP or PA and Lateral 2 Views Patricia Laboy APRN [address] [place] [address] Phone: tel: fax: [facility] Referral ID Status Reason Start Date Expiration Date V isits Requested Visits Authorized [id number] Authorized 05/04/2024 05/04/2025 1 1 Reason for Visit * Reason Comments Follow-up 6 month * Outpatient (Routine) - Closed Specialty Diagnoses / Procedures Referred By Ryley pantoja Referred To Contact Obstetrics and Gynecology Patricia Laboy APRN [address] [place] [address] Phone: tel: fax: [facility] Referral ID Status Reason Start Date Expiration Date Visits Re quested Visits Authorized [id number] Closed 09/30/2023 03/31/2025 1 1 Encounter Details Date Type Department Care Team (Late st Contact Info) Description 05/04/2024 11:30 AM EDT Office Visit Department of Medical and Surgical Gynecology in [place], [place] [address] [place] [address] Patricia Laboy LICENSED CLUB MANAGER [address] [place] [id number] Malignant Neoplasm Of Uterus Endometrial (HCC) (Primary Dx) Social History Tobacco Use Types Packs/Day Years Used Date Smoking Tobacco: Never Smokeless Tobacco: Never Alcohol Use Standard Drinks/Week Comments No 0 (1 standard drink = 0.6 oz pur e alcohol) [facility] Utilities Answer Date Recorded In the past 12 months has e [employer], gas, oil, or water [employer] threatened to shut off services in your [...] and Family Not on file 09/17/2019 Attends Synagogue Services Not on file Active Member of [...] and heating? Not hard at all 02/26/2023 [facility] - Occupational Stress Questionnaire Answer Date [...] money to buy more. Never true 04/28/20 Within the past 12 months, t he [...] Date Recorded Dental: Regular Dentist Yes 02/27/20 Employment Answer Date Recorded Employment status Retired 04/28/2024 Housing Stability Answer Date Recorded What is your living situation today? I have a [facility] place to live 04/28/2024 Education Answer [...] Orientation Straight 12/09/2018 1: 18 PM CDT documented as of this encounter Last Filed Vital Signs Vital Sign Reading Time Taken Comments Blood Pressure 145/78 05/04/2024 11:08 AM EDT Pulse 73 05/04/2024 11:08 AM EDT Temperature 36.2 ??C (97.2 ??F) 05/04/2024 1 1:08 AM EDT Respiratory Rate - - Oxygen Saturation - - Inhaled Oxygen Concentration - - Weight 87.4 kg (192 lb 10.9 oz) 024 11:08 AM EDT Height 158 cm (5' 2.21 ) 05/04/2024 11: 08 AM EDT Body Mass Index 35.01 05/04/2024 11:08 AM EDT documented in this encounter Progress Notes * Patricia Laboy, LICENSED CLUB MANAGER - 05/04/2024 11:30 AM EDT SUBJECTIVE HISTORY OF PRESENT ILLNESS Claudia Desai is a 74 y.o. female who presents for a 6 month surveillance visit. Most recent surveillance visit was in 09/30/23. In June 2021 due to concern regarding any nodule the rectovaginal septum a CT scan was obtainedand returned negative. Follow up colonoscopy identified a polyp that was benign. Patient is status post hysterectomy with bilateral salpingo oophorectomy and sentinel lymph node dissection on December 21, 2018 for biopsy-proven grade 1 endometrial adenocarcinoma. Final pathology was stage IB, grade 1 endometrioid carcinoma with tumor invading 1/2 from more of the myometrium s/p adjuvant vaginal cuff HDR brachytherapy from January 24, 2019 through January 28, 2019. She reports no acute gynecologic concerns. Denies any vaginal bleeding, discharge, pelvic pain, newor worsening abdominal pain, new or worsening low back pain, lower extremity swelling, fevers chills or night sweats. Denies shortness of breath or chest pain. She is sexually active and denies any pain or bleeding with intercourse. Continues have some urinary urgency, unchanged. She was previously put on an anticholinergic but had discontinued with concerns side effects. No new issues with bowel function. Last chest cxr 01/2024. HISTORY REVIEW The following portions of the patient's history were reviewed and updated as appropriate: allergies, current medications, family history, medical history, social history, surgical history and problemlist. REVIEW OF SYSTEMS Negative except as per HPI OBJECTIVE PHYSICAL EXAM Patient gave both verbal and written consent to proceed with today's gynecologic procedure, and/or pelvic examination as part of the evaluation for her gynecologic issues. She verbally consented prior to the exam being done. I have also asked the patient's permission for trainees under my supervision today to perform the same examination (if applicable). Mail Room Clerk present for examination KATHYA Austin VITALS: Vitals: 05/04/24 1108 BP: 145/78 Pulse: 73 Temp: 36.2 ??C Body mass index is 35.01 kg/m??. GENERAL: No acute distress; oriented to time, place and person HEAD: Normocephalic PULMONARY: Regular and non-labored respirations ABDOMEN: Soft, nondistended, no mass. LYMPH: Negative supraclavicular inguinal and groin lymphadenopathy. EXTREMITIES: Normal range of motion and gait without any lower extremity edema PELVIC: EGBUS normal female. Lesion no. Urethral normal. Atrophic change. Speculum exam reveals atrophic vaginal mucosa with radiation changes. No visible lesions. No blood or discharge. Bimanual exam shows no nodules. Rectal exam. Confirmatory without nodularity. ASSESSMENT / PLAN ASSESSMENT: Diagnosis Plan 1. Malignant Neoplasm Of Uterus Endometrial (HCC) DX Chest AP or PA and Lateral 2 Views PLAN: 74 y/o female with history of Stage 1B, Grade 1 endometrial carcinoma s/p Storm TLH/BSO/SLND 12/2018 followed by vaginal cuff HDR brachytherapy completed 01/28/2019. - ok for annual visits - She is to monitor for signs and symptoms of recurrent disease, to include: vaginal bleeding, new pelvic or abdominal pain or bloating, new swelling of a leg, any pain that is persistent or progressive, new onset cough or shortness of breath, change in bladder or bowel habits. Patient understands the importance of an annual chest x-ray as part of her surveillance. Chest xraypaper Rx provided for January 2025. I have discussed my findings in detail with the patient along with the alternatives and benefits oftreatment. I have answered all questions. PATIENT COUNSELING: The patient was interactive, attentive and verbalized understanding of the explanation of the condition and possible treatment options. I personally spent 20 minutes in the care of the patient today. Greater than 50% was spent [id number] in counseling coordination of care. Patricia Laboy APRN documented in this encounter Plan of Treatment Scheduled Orders Name Type Priority Associated Diagnoses Orde r Schedule DX Chest AP or PA and Lateral 2 Views Imaging RAD - Routine (most inpatients and all outpatients) Malignant Neoplasm Of Uterus Endometrial (HCC) Expected: 01/17/2025, Expires: 08/04/2025 documented as of this encounter Visit Diagnoses Diagnosis Malignant Neoplasm Of Uterus Endometrial (HCC)- Primary documented in this encounter
--- OUTSIDE RECORDS SUMMARY | 2024-07-17 10:35 | XMS_ITS | Encounter Summary ---
Author Organization [facility] Address [address] [place] [address] Care Team Providers Care Sales Review Clerk Name Role Phone Unavailable Primary Care Provider Unavailabl e Reason for Referral * Outpatient (Routine) - Closed Specialty Diagnoses / Procedures Referred By Ryley pantoja Referred To Contact Obstetrics and Gynecology Natasha Bear DMSc, MPAS, P.A.-C. [address] [place] [address] Phone: tel: fax: [facility] Referral ID Status Reason Start Date Expiration Date Visits Re quested Visits Authorized [id number] Closed 01/30/2021 01/30/2022 1 1 Reason for Visit * Outpatient (Routine) - Closed Specialty Diagnoses / Procedures Referred By Ryley pantoja Referred To Contact Obstetrics and Gynecology Diagnoses Malignant Neoplasm Of Uterus (HCC) Inna Turner, P.A.-C. [address] [place] [address] Phone: tel: fax: [facility] Referral ID Status Reason Start Date Expiration Date Visits Re quested Visits Authorized [id number] Closed 09/19/2020 09/19/2021 1 1 Encounter Details Date Type Department Care Team (Late st Contact Info) Description 01/30/2021 12:00 PM EDT Office Visit Department of Medical and Surgical Gynecology in [place], [place] [address] [place] [address] Natasha Bear, DMSc, MPAS, P.A.-C. [address] [place] [address] Malignant Neoplasm Of Uterus (HCC) Social History Tobacco Use Types Packs/Day Years Used Date Smoking Tobacco: Never Smokeless Tobacco: Never Alcohol Use Standard Drinks/Week Comments No 0 (1 standard drink = 0.6 oz pur e alcohol) Humiliation, Afraid, Rape, and Kick questionnair e Answer Date Recorded Fear of Current or Ex-Partner No Emotionally Abused No 01/17/2019 Physically Abused No 01/17/2019 Sexually Abused No 01/17/2019 Social Connection and Isolation Panel [NHANES] A nswer Date Recorded Frequency of Communication w ith Friends and Family Not on file 09/17/2019 Frequency of Social Gatherin gs with Friends and Family Not on file 09/17/2019 Attends Worship Services Not on file Active Member of [...] Resource Strain (CARDIA) Answe r Date Recorded Difficulty of Paying Living Expenses Not hard at all 01/17/2019 [facility] of Occupat ional Health - Occupational Stress Questionnaire Answer Date Recorded Feeling of Stress Not at all 01/17/2019 Exercise Vital Sign Answer Date Recorde d On average, how many days pe r week do you engage in moderate to strenuous exercise (like a brisk walk)? 6 days Minutes of Exercise per Session Not on file 09/17/2019 Hunger Vital Sign Answer Date Recorded Worried About Running Out of Food in the Last Ye ar Never true 01/17/2019 Ran Out of Food in the Last Year Never true 01/17/2019 PRAPARE - Transportation Answer Date Re corded Lack of Transportation (Medical) No 01/17/2019 Lack of Transportation (Non-Medical) No 01/17/2019 Nutrition Answer Date Recorded Nutrition: EVOO Fat Source No 09/17 On average, how many serving s of fruits and vegetables do you eat per day (serving size is equal to 1 cup or approximately the size of a tennis ball)? 2-3 09/18/2019 Dental Answer Date Recorded Dental: Regular Dentist Unknown 09/19/19 21 Education Answer Date Recorded What is the [...] Sign Reading Time Taken Comments Blood Pressure 141/82 01/30/2021 11:27 AM EDT Pulse 68 01/30/2021 11:27 AM EDT Temperature 36.4 ??C (97.5 ??F) 01/30/2021 11:27 AM E DT Respiratory Rate - - Oxygen Saturation - - Inhaled Oxygen Concentration - - Weight 82.1 kg (181 lb) 01/30/2021 11:27 AM EDT Height - - Body Mass Index 32.06 09/19/2020 9:34 AM EST documented in this encounter Progress Notes * Natasha Bear P, DMSc, MPAS, P.A.-C. - 01/30/2021 12:[address] Yudith Madden RN I personally spent 30 minutes in care of the patient today. Time includes both non face to face andface to face patient care. And greater than 50% was spent [id number] counseling coordination of care. Supervising SUBJECTIVE HISTORY OF PRESENT ILLNESS Claudia Desai is a 70 y.o. female who presents for a 4 month surveillance visit. She presents with her . Most recent surveillance visit was with Inna [facility] on September 19, 2020 Patient is status post hysterectomy with bilateral salpingo oophorectomy and sentinel lymph node dissection on December 21, 2018 for biopsy-proven grade 1 endometrial adenocarcinoma.? Final pathology was stage IB, grade 1 endometrioid carcinoma with tumor invading 1/2 from more of the myometrium.?S/P??adjuvant vaginal cuff HDR brachytherapy from January 24, 2019 through January 28, 2019. ?She reports no acute gynecologic concerns. ??Denies any vaginal bleeding, discharge, pelvic pain,new or worsening abdominal pain, new or worsening low back pain, lower extremity swelling, fevers chills or night sweats. ??Denies??shortness of breath or chest pain. Chest CT completed at a [facility] facility and reported by the patient as normal. ?? She is sexually active and denies any pain or bleeding with intercourse.? Radiation oncology appointments are now on annual basis. HISTORY REVIEW The following portions of the [...] to perform the same examination (if applicable). Sas Clinical Programmer present for examination Bonnie Madden RN VITALS: Vitals: 01/30/21 1127 BP: 141/82 Pulse: 68 Temp: 36.4 ??C Body mass index is 32.06 kg/m??. GENERAL: No acute distress; oriented to time, place and person HEAD: Normocephalic PULMONARY: Regular and non-labored respirations ABDOMEN: Soft, nondistended, no mass. no CVA tenderness LYMPH: Negative inguinal and groin lymphadenopathy EXTREMITIES: Normal range of motion and gait without any lower extremity edema PELVIC: EGBUS normal female. Lesion no. Urethral normal. Speculum exam reveals atrophic vaginal mucosa with radiation changes. No lesions. No blood or discharge. Bimanual exam confirms palpably smooth and well supported vaginal cuff without any nodularity or mass. Rectovaginal exam confirmatory without nodularity. ASSESSMENT / PLAN ASSESSMENT: Diagnosis Plan 1. Malignant Neoplasm Of Uterus (HCC) Obstetrics and Gynecology office visit (clinic) PLAN: 70 y/o female with history of Stage 1B, Grade 1 endometrial carcinoma s/p Storm TLH/BSO/SLND 12/2018 followed by vaginal cuff HDR brachytherapy completed 01/28/2019. Patient is doing well. ??Clinically MILO status post surgery. ??She will send us a copy of her recent chest CT as part of her annual surveillance ?? - Recommend continuation of q. 4??month return visit for surveillance the first 3 years, then q. 6 months for??2 years. ? - She is advised to monitor for signs and symptoms of recurrent disease, to include: vaginal bleeding, new pelvic or abdominal pain or bloating, new swelling of a leg, any pain that is persistent or progressive, new onset cough or shortness of breath, change in bladder or bowel habits. ?? - Return visit in??4??months [facility] with [facility]. ?? I have discussed my findings in detail with the patient along with the alternatives and benefits oftreatment. I have answered all questions. PATIENT COUNSELING: The patient was interactive, attentive and verbalized understanding of the explanation of the condition and possible treatment options. Jesse Frost MPAS, P.A.-C. documented in this encounter Plan of Treatment Scheduled Referrals Name Type Priority Associated Diagnoses Order Schedule Obstetrics and Gynecology office visit (clinic) Outpatient Referral Routine Expected: 06/05/2021, Expires: 01/31/2024 documented as of this encounter Visit Diagnoses Diagnosis Malignant Neoplasm Of Uterus (HCC) documented in this encounter
--- OUTSIDE RECORDS SUMMARY | 2024-07-17 10:35 | XMS_ITS | Encounter Summary ---
Author Organization [facility] Address [address] [place] [address] Care Team Providers Care Vamper Name Role Phone Unavailable Primary Care Provider Unavailabl e Reason for Visit * Reason Comments Access Request Encounter Details Date Type Department Care Team (Latest Contact Info) Description 04/25/2021 Clinical Communication Department of Medical and Surgical Gynecology in [place], [place] [address] [place] [address] Natasha Bear, DMSc, MPAS, P.A.-C. [address] [place] [address] Access Request Social History Tobacco Use Types Packs/Day Years [...] and Family Not on file 09/17/2019 Attends [employer] Services Not on file Active Member of [...] Living Expenses Not hard at all 01/17/2019 [facility]at [facility] - Occupational [...] PM CDT documented as of this encounter Miscellaneous Notes * Telephone Encounter - Maryse Spears - 04/26/2021 2:21 PM EDT Please defer, if pt calls okay to schedule with Dr. 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 Exec, Medallion, Dev, etc.): Special preferences/notes: Please advise on how we should proceed with scheduling due to limited CYNDY availability. Thank you Lupe documented in this encounter Plan of Treatment Not on file documented as of this encounter Visit Diagnoses Not on filedocumented in this encounter
--- OUTSIDE RECORDS SUMMARY | 2024-07-17 10:35 | XMS_ITS | Encounter Summary ---
Author Organization [facility] Address [address] [place] [address] Care Team Providers Care Laundry Marker Supervisor Name Role Phone Unavailable Primary Care Provider Unavailabl e Reason for Referral * Outpatient (Routine) - Closed Specialty Diagnoses / Procedures Referred By Ryley pantoja Referred To Contact Obstetrics and Gynecology Patricia Laboy APRN [address] [place] [address] Phone: tel: fax: [facility] Referral ID Status Reason Start Date Expiration Date Visits Re quested Visits Authorized [id number] Closed 09/30/2023 03/31/2025 1 1 Reason for Visit * Outpatient (Routine) - Closed Specialty Diagnoses / Procedures Referred By Ryley pantoja Referred To Contact Obstetrics and Gynecology Patricia Laboy APRN [address] [place] [address] Phone: tel: fax: [facility] Referral ID Status Reason Start Date Expiration Date Visits Re quested Visits Authorized [id number] Closed 03/05/2023 03/04/2026 1 1 Encounter Details Date Type Department Care Team (Late st Contact Info) Description 09/30/2023 11:00 AM EDT Office Visit Department of Medical and Surgical Gynecology in [place], [place] [address] [place] [address] Patricia Laboy APRN [address] [place] [address] Malignant Neoplasm Of Uterus Endometrial (HCC) (Primary [...] and Family Not on file 09/17/2019 Attends [employer] Services Not on file Active Member of [...] and heating? Not hard at all 02/26/2023 [facility] of Occupat ional Health - Occupational Stress Questionnaire Answer Date Recorded Feeling of Stress Not at all 01/17/2019 Exercise Vital Sign Answer Date Recorde d On average, how many days pe r week do you engage in moderate to strenuous exercise (like a brisk walk)? 5 days 02/26/2023 On average, how many minutes do you engage in exercise at this level? 120 min 02/26/2023 Hunger Vital Sign Answer Date Recorded Within the past 12 months, y ou worried that your food would run out before you got the money to buy more. Never true 02/27/20 Within the past 12 months, t he food you bought just didn't last and you didn't have money to get more. Never true 02/26/2023 PRAPARE - Transportation Answer Date Re corded In the past 12 months, has l ack of transportation kept you from medical appointments or from getting medications? No 02/17 In the past 12 months, has l ack of transportation kept you from meetings, work, or from getting things needed for daily living? No 02/26/2023 Nutrition Answer Date Recorded Nutrition: EVOO Fat Source Unknown 02/26 On average, how many serving s of fruits and vegetables do you eat per day (serving size is equal to 1 cup or approximately the size of a tennis ball)? 3-5 02/26/2023 Dental Answer Date Recorded Dental: Regular Dentist Yes 02/27/20 Employment Answer Date Recorded Employment status Retired 02/26/2023 Housing Stability Answer Date Recorded What is your living situation today? I have a [employer] place to live 02/26/2023 Education Answer Date Recorded What is the [...] Sign Reading Time Taken Comments Blood Pressure 130/81 09/30/2023 10:43 AM EDT Pulse 69 09/30/2023 10:43 AM EDT Temperature 36.7 ??C (98.1 ??F) 09/30/2023 10:43 AM E DT Respiratory Rate - - Oxygen Saturation - - Inhaled Oxygen Concentration - - Weight - - Height - - Body Mass Index - - documented in this encounter Progress Notes * Patricia Esparza, ALCOHOLIC COUNSELOR - 09/30/2023 11:00 AM EDT SUBJECTIVE HISTORY OF PRESENT ILLNESS Claudia Desai is a 73 y.o. female who presents for a 6 month surveillance visit. She presents with her . Most recent surveillance visit was in 03/05/23. In June 2021 due to concern regarding [...] effects. No new issues with bowel function. Chest CT from June 2021 completed at a non [place] facility. Report was previously scanned into her chart. She had a chest x-ray completed on December 17, 2022 at an outside facility that was normal. Radiation oncology appointments are now on annual [...] to perform the same examination (if applicable). Softball Player present for examination KATHYA Austin VITALS: Vitals: 09/30/23 1043 BP: 130/81 Pulse: 69 Temp: 36.7 ??C There is no height or weight on file to calculate BMI. GENERAL: No acute distress; oriented to time, [...] or PA and Lateral 2 Views PLAN: 73 y/o female with history of Stage 1B, Grade 1 endometrial carcinoma s/p Storm TLH/BSO/SLND 12/2018 followed by vaginal cuff HDR brachytherapy completed 01/28/2019. - Recommend continuing q6 month for surveillance visits for the next 2 years (until 5 years out from treatment). - She is to monitor for signs and symptoms of recurrent disease, to include: vaginal bleeding, new pelvic or abdominal pain or bloating, new swelling of a leg, any pain that is persistent or progressive, new onset cough or shortness of breath, change in bladder or bowel habits. Patient understands the importance of an annual chest x-ray as part of her surveillance. Timing on this can be adjusted if she has symptoms. She will need a paper script for CXR due around December 2023. She knows to send it to our clinic. I have discussed my findings in detail with the patient along with the alternatives and benefits oftreatment. I have answered all questions. PATIENT COUNSELING: The patient was interactive, attentive and verbalized understanding of the explanation of the condition and possible treatment options. I personally spent 20 minutes in the care of the patient today. Greater than 50% was spent [id number] in counseling coordination of care. Patricia Esparza APRN documented in this encounter Plan of Treatment Scheduled Referrals Name Type Priority Associated Diagnoses Order Schedule Obstetrics and Gynecology office visit (clinic) Outpatient Referral Routine Expected: 04/01/2024 (Approximate), Expires: 12/30/2024 documented as of this encounter Visit Diagnoses Diagnosis Malignant Neoplasm Of Uterus Endometrial (HCC)- Primary documented in this encounter
--- OUTSIDE RECORDS SUMMARY | 2024-07-17 10:35 | XMS_ITS | Encounter Summary ---
Author Organization [facility] Address [address] [place] [address] Care Team Providers Care Speech/Language Therapist Name Role Phone Unavailable Primary Care Provider Unavailabl e Reason for Visit * Reason Comments returned call Encounter Details Date Type Department Care Team (Late st Contact Info) Description 06/26/2021 Clinical Communication Department of Medical and Surgical Gynecology in [place], [place] [address] [place] [id number] Maryse Spears returned call Social History Tobacco Use Types Packs/Day Years [...] Living Expenses Not hard at all 01/17/2019 [facility] of Occupat ional Health - Occupational Stress [...] * Telephone Encounter - Maryse Spears - 06/26/2021 1:15 PM EST Patient returned call. Believes that it may have been regarding her imaging. ER SHUCKER documented in this encounter Plan of Treatment Not on file documented as of this encounter Visit Diagnoses Not on filedocumented in this encounter
--- OUTSIDE RECORDS SUMMARY | 2024-07-17 10:35 | XMS_ITS | Encounter Summary ---
Author Organization [facility] Address [address] [place] [address] Care Team Providers Care Coding Specialist Home Health Name Role Phone Unavailable Primary Care Provider Unavailabl e Reason for Referral * Outpatient (Routine) - Closed Specialty Diagnoses / Procedures Referred By Ryley pantoja Referred To Contact Obstetrics and Gynecology Patricia Laboy APRN [address] [place] [address] Phone: tel: fax: [facility] Referral ID Status Reason Start Date Expiration Date Visits Re quested Visits Authorized [id number] Closed 03/05/2023 03/04/2026 1 1 Reason for Visit * Outpatient (Routine) - Closed Specialty Diagnoses / Procedures Referred By Ryley pantoja Referred To Contact Obstetrics and Gynecology Patricia Laboy APRN [address] [place] [address] Phone: tel: fax: [facility] Referral ID Status Reason Start Date Expiration Date Visits Re quested Visits Authorized [id number] Closed 09/03/2022 09/02/2025 1 1 Encounter Details Date Type Department Care Team (Late st Contact Info) Description 03/05/2023 11:00 AM EDT Office Visit Department of Medical and Surgical Gynecology in [place], [place] [address] [place] [address] Patricia Laboy APRN [address] [place] [address] Malignant Neoplasm Of Uterus Endometrial (HCC) (Primary [...] and heating? Not hard at all 02/26/2023 [facility] [place] of Occupat ional Health - Occupational Stress [...] your living situation today? I have a [facility] place to live 02/26/2023 Education Answer Date [...] Sign Reading Time Taken Comments Blood Pressure 140/90 03/05/2023 11:04 AM EDT Pulse 78 03/05/2023 11:04 AM EDT Temperature 36.4 ??C (97.5 ??F) 03/05/2023 11:04 AM E DT Respiratory Rate - - Oxygen Saturation - - Inhaled Oxygen Concentration - - Weight - - Height - - Body Mass Index - - documented in this encounter Progress Notes * Patricia Esparza, DOZER OPERATOR - 03/05/2023 11:00 AM EDT SUBJECTIVE HISTORY OF PRESENT ILLNESS Claudia Desai is a 72 y.o. female who presents for a 6 month surveillance visit. She presents with her . Most recent surveillance visit was in 09/03/22. In June 2021 due to concern regarding [...] bleeding with intercourse. Continues have some urinary urgency. She was previously put on an anticholinergic but had discontinued with concerns side effects. No new issues with bowel function. Chest CT from June 2021 completed at a non [facility] facility. Report was previously scanned into her chart. She had a chest x-ray completed on December 17, 2022 at an outside facility that was normal. Radiation oncology appointments are now on annual basis. She will call to schedule appt. HISTORY REVIEW The following portions of the [...] to perform the same examination (if applicable). Tabber present for examination Elaine YAÑEZ VITALS: Vitals: 03/05/23 1104 BP: 140/90 Pulse: 78 Temp: 36.4 ??C There is no height or weight on file to calculate BMI. GENERAL: No acute distress; oriented to time, place and person HEAD: Normocephalic PULMONARY: Regular and non-labored respirations ABDOMEN: Soft, nondistended, no mass. LYMPH: Negative supraclavicular inguinal and groin lymphadenopathy. Exam limited by body habitus. EXTREMITIES: Normal range of motion and gait without any lower extremity edema PELVIC: EGBUS normal female. Lesion no. Urethral normal. Atrophic change. Speculum exam reveals atrophic vaginal mucosa with radiation changes. No visible lesions. No blood or discharge. Bimanual exam shows no nodules. Rectal exam. Confirmatory without nodularity. ASSESSMENT / PLAN ASSESSMENT: Diagnosis Plan 1. Malignant Neoplasm Of Uterus Endometrial (HCC) PLAN: 72 y/o female with history of Stage 1B, Grade 1 endometrial carcinoma s/p Storm TLH/BSO/SLND 12/2018 followed by vaginal cuff HDR brachytherapy completed 01/28/2019. - Recommend transition from Q 4 month to q6 month for surveillance visits for the next 2 years. - She is to monitor for signs [...] paper script for CXR due around December 2023.She knows to send it to our clinic. I have discussed my findings in detail with the patient along with the alternatives and benefits oftreatment. I have answered all questions. PATIENT COUNSELING: The patient was interactive, attentive and verbalized understanding of the explanation of the condition and possible treatment options. I personally spent 25 minutes in the care of the patient today. Greater than 50% was spent [id number] in counseling coordination of care. Patricia Esparza APRN documented in this encounter Plan of Treatment Scheduled Referrals Name Type Priority Associated Diagnoses Order Schedule Obstetrics and Gynecology office visit (clinic) Outpatient Referral Routine Expected: 09/05/2023 (Approximate), Expires: 06/05/2024 documented as of this encounter Visit Diagnoses Diagnosis Malignant Neoplasm Of Uterus Endometrial (HCC)- Primary documented in this encounter
--- OUTSIDE RECORDS SUMMARY | 2024-07-17 10:35 | XMS_ITS | Encounter Summary ---
Author Organization [facility] Address [address] [place] [address] Care Team Providers Care Assignment Clerk Name Role Phone Unavailable Primary Care Provider Unavailabl e Reason for Visit * Reason Comments COVID Inquiry Encounter Details Date Type Department Care Team (Late st Contact Info) Description 11/28/2020 Clinical Communication Department of Medical and Surgical Gynecology in [place], [place] [address] [place] [address] Natasha Bear, DMSc, MPAS, P.A.-C. [address] [place] [address] COVID Inquiry Social History Tobacco Use Types Packs/Day Years [...] and Family Not on file 09/17/2019 Attends Orthodoxy Services Not on file Active Member of [...] Living Expenses Not hard at all 01/17/2019 [facility] [place] of Occupat ional Health - Occupational Stress [...] encounter Miscellaneous Notes * Telephone Encounter - Lupe Foster - 11/28/2020 3:51 PM EDT What is the purpose of the call?: Standard Appointment Process Standard Appointment Process Have you tested positive for COVID-19 in the last 20 days OR do you have a pending COVID-19 test because you had symptoms?: No, neither apply What region is the appointment being requested?: [place] In the past 14 days are any of the following symptoms new to you and not related to an existing health condition?: No symptoms noted In the past 14 days have you had close contact* with a person who has a LABORATORY CONFIRMED case of COVID-19?: No exposure noted, follow local process (End Screening) Testing Recommendation Endpoint Is testing recommended? : Not recommended to test Plan: Endpoint recommendation: Followed regional OTG *Reminder if sending patient for testing in [facility] or [facility], route encounter to the correct testing pool. documented in this encounter Plan of Treatment Not on file documented as of this encounter Visit Diagnoses Not on filedocumented in this encounter
--- OUTSIDE RECORDS SUMMARY | 2024-07-17 10:35 | XMS_ITS | Encounter Summary ---
Author Organization [facility] Address [address] [place] [address] Care Team Providers Care Glass Or Mirror Inspector Name Role Phone Unavailable Primary Care Provider Unavailabl e Reason for Referral * Outpatient (Routine) - Closed Specialty Diagnoses / Procedures Referred By Ryley pantoja Referred To Contact Obstetrics and Gynecology Patricia Laboy APRN [address] [place] [address] Phone: tel: fax: [facility] Referral ID Status Reason Start Date Expiration Date Visits Re quested Visits Authorized [id number] Closed 09/03/2022 09/02/2025 1 1 Reason for Visit * Outpatient (Routine) - Closed Specialty Diagnoses / Procedures Referred By Ryley pantoja Referred To Contact Obstetrics and Gynecology Natasha Bear, Jesse, MPAS, P.A.-C. [address] [place] [address] Phone: tel: fax: [facility] Referral ID Status Reason Start Date Expiration Date Visits Re quested Visits Authorized [id number] Closed 03/03/2022 03/03/2023 1 1 Encounter Details Date Type Department Care Team (Late st Contact Info) Description 09/03/2022 11:00 AM EST Office Visit Department of Medical and Surgical Gynecology in [place], [place] [address] [place] [address] Patricia Laboy APRN [address] [facility] [place] [id number] Malignant Neoplasm Of Uterus Endometrial (HCC) (Primary [...] and Family Not on file 09/17/2019 Attends Rastafarian Services Not on file Active Member of [...] Living Expenses Not hard at all 01/17/2019 [facility] [place] of Occupat ional Health - Occupational Stress [...] Answer Date Recorded Dental: Regular Dentist Yes 07/22/19 Education Answer Date Recorded What is the [...] Sign Reading Time Taken Comments Blood Pressure 154/84 09/03/2022 10:33 AM EST Pulse 71 09/03/2022 10:33 AM EST Temperature 36.3 ??C (97.4 ??F) 09/03/2022 10:[address] Respiratory Rate - - Oxygen Saturation - - Inhaled Oxygen Concentration - - Weight - - Height - - Body Mass Index - - documented in this encounter Progress Notes * Patricia Esparza, HVAC TECHNICIAN RESIDENTIAL - 09/03/2022 11:00 AM EST SUBJECTIVE HISTORY OF PRESENT ILLNESS Claudia Desai is a 72 y.o. female who presents for a 6 month surveillance visit. She presents with her . Most recent surveillance visit was in 03/03/22. In June due to concern regarding any nodule the rectovaginal septum a CT scan was obtained and returned negative. Follow up colonoscopy identified a [...] from June 2021 completed at a non [facility] facility. Report was previously scanned into her chart. She had a chest x-ray completed in November of 2021 at an outside facility. Radiation oncology appointments are now on annual [...] to perform the same examination (if applicable). Laundry Operator present for examination Jeny TALBOT VITALS: Vitals: 09/03/22 1033 BP: 154/84 Pulse: 71 Temp: 36.3 ??C There is no height or weight [...] or PA and Lateral 2 Views PLAN: 72 y/o female with history of [...] be adjusted if she has symptoms. She was given a paper script for CXR due around November 2022. She knows to send it to our clinic. I have discussed my findings in detail with the patient along with the alternatives and benefits oftreatment. I have answered all questions. PATIENT COUNSELING: The patient was interactive, attentive and verbalized understanding of the explanation of the condition and possible treatment options. I personally spent 28 minutes in the care of the patient today. Greater than 50% was spent [id number] in counseling coordination of care. Patricia Esparza APRN REL PULLER documented in this encounter Plan of Treatment Scheduled Referrals Name Type Priority Associated Diagnoses Order Schedule Obstetrics and Gynecology office visit (clinic) Outpatient Referral Routine Expected: 03/03/2023 (Approximate), Expires: 12/02/2023 documented as of this encounter Visit Diagnoses Diagnosis Malignant Neoplasm Of Uterus Endometrial (HCC)- Primary documented in this encounter
--- OUTSIDE RECORDS SUMMARY | 2024-07-17 10:35 | XMS_ITS | Encounter Summary ---
Author Organization [facility] Address [address] [place] [address] Care Team Providers Care Adjunct Sociology Professor Name Role Phone Unavailable Primary Care Provider Unavailabl e Reason for Referral * Outpatient (Routine) - Closed Specialty Diagnoses / Procedures Referred By Ryley pantoja Referred To Contact Obstetrics and Gynecology Natasha Bear DMSc, MPAS, P.A.-C. [address] [place] [address] Phone: tel: fax: [facility] Referral ID Status Reason Start Date Expiration Date Visits Re quested Visits Authorized [id number] Closed 06/25/2021 06/25/2022 1 1 Reason for Visit * Reason Comments Follow-up * Outpatient (Routine) - Closed Specialty Diagnoses / Procedures Referred By Ryley pantoja Referred To Contact Obstetrics and Gynecology Natasha Bear DMSc, MPAS, P.A.-C. [address] [place] [address] Phone: tel: fax: [facility] Referral ID Status Reason Start Date Expiration Date Visits Re quested Visits Authorized [id number] Closed 01/30/2021 01/30/2022 1 1 Encounter Details Date Type Department Care Team (Late st Contact Info) Description 06/25/2021 3:30 PM EST Office Visit Department of Medical and Surgical Gynecology in [place], [place] [address] [place] [address] Natasha Bear, BECKIE, MPAS, P.A.-C. [address] [place] [address] Nodule Vagina (Primary Dx); Pelvic And Perineal Pain; Malignant Neoplasm Of Uterus (HCC); Urgency Urinary Social History Tobacco Use Types Packs/Day Years [...] and Family Not on file 09/17/2019 Attends Mandaeism Services Not on file Active Member of [...] Living Expenses Not hard at all 01/17/2019 [place] of Occupat ional Health - Occupational Stress [...] Sign Reading Time Taken Comments Blood Pressure 149/81 06/25/2021 3:03 PM EST Pulse 84 06/25/2021 3:03 PM EST Temperature 36.5 ??C (97.7 ??F) 06/25/2021 3:03 PM ES T Respiratory Rate - - Oxygen Saturation - - Inhaled Oxygen Concentration - - Weight 83.8 kg (184 lb 11.9 oz) 06/25/2021 3:03 PM EST Height - - Body Mass Index 32.73 09/19/2020 9:34 AM EST documented in this encounter Patient Instructions * Patient Instructions* Natasha Bear, BECKIEc, MPAS, P.A.-C. - 06/25/2021 3:30 PM EST Images from the original note were not included. Patient Education Urge Suppression Instructions __ Do you osullivan to the bathroom for fear of losing urine? __ Do you ever dribble urine on your way to the bathroom? The feeling of urgency to get to the bathroom most likely is caused by bladder spasms. Rushing to the bathroom during the spasms or urge causes your bladder to bounce. This causes more bladder spasms. Learning urge suppression may help you control and/or eliminate these spasms so that you can stop the feeling of urgency and walk to the bathroom calmly. To stop the feeling of urgency to urinate: 1. Remain in the same position in which you began having the feeling to urinate. If you are sitting, remain seated. If you are walking, stop walking but remain standing. 2. Tighten your rectum, then let go a little, tighten again and let go a little. Keep doing this until the urge feeling has passed (about 15 to 30 seconds). By tightening and letting go of your rectum, you stimulate a nerve in your pelvic muscles which causes the bladder to relax. This stops the strong feeling to urinate. 3. Tell yourself that you are in control of your bladder -- not the other way around. 4. Once the urge is over, take a deep breath and relax. Then walk to the bathroom calmly. This material is for your education and information only. This content does not replace medical advice, diagnosis or treatment. New medical research may change this information. If you have questionsabout a medical condition, always talk with your health care provider. ? 2002 [facility] for Medical Education and Research (MER). All rights reserved. [id number] ERSITY MANAGER documented in this encounter Progress Notes * Natasha Bear DMSc, MPAS, P.A.-C. - 06/25/2021 3:[address] Yudith Madden RN I personally spent 40 minutes in care of the patient today. Time includes both non face to face andface to face patient care. And greater than 50% was spent [id number] counseling coordination of care. Supervising SUBJECTIVE HISTORY OF PRESENT ILLNESS Claudia Desai is a 71 y.o. female who presents for a 4 month surveillance visit. She presents with her . Most recent surveillance visit was in my clinic on January 30, 2021 and prior to that with Inna Turner PAC on September 19, 2020 Patient is status [...] sweats. ??Denies??shortness of breath or chest pain. She is sexually active and denies any pain or bleeding with intercourse.?Did no significant change in urinary urge symptoms. No issues with bowel function. Chest CT from January 10, 2021 completed at a [facility] facility. Patient was kind enough to bring the report which will be scanned into the chart. ?? Radiation oncology appointments are now on annual [...] to perform the same examination (if applicable). Edger Saw Operator present for examination Bonnie Madden RN VITALS: Vitals: 06/25/21 1503 BP: 149/81 Pulse: 84 Temp: 36.5 ??C Body mass index is 32.73 kg/m??. GENERAL: No acute distress; oriented to time, place and person HEAD: Normocephalic PULMONARY: Regular and non-labored respirations ABDOMEN: Soft, nondistended, no mass. no CVA tenderness LYMPH: Negative supraclavicular inguinal and groin lymphadenopathy EXTREMITIES: Normal range of motion and gait without any lower extremity edema PELVIC: EGBUS normal female. Lesion no. Urethral normal. Atrophic change. Speculum exam reveals atrophic vaginal mucosa with radiation changes. No visible lesions. No blood or discharge. Bimanual exam confirms palpably smooth and well supported vaginal cuff --> small bb size nontender smooth nodule 1 cm from the vaginal introitus at 4 o'clock rectovaginal septum. Nodules not as well appreciated on the rectal exam. no additional nodules appreciated. ASSESSMENT / PLAN ASSESSMENT: Diagnosis Plan 1. Nodule Vagina Creatinine with Estimated GFR 2. Pelvic And Perineal Pain CT Abdomen Pelvis without and with IV Contrast 3. Malignant Neoplasm Of Uterus (HCC) Creatinine with Estimated GFR PLAN: 71 y/o female with history of Stage 1B, Grade 1 endometrial carcinoma s/p Storm TLH/BSO/SLND 12/2018 followed by vaginal cuff HDR brachytherapy completed 01/28/2019. Physical exam findings of this small rectovaginal nodule reviewed with the patient and her .Benign versus malignant etiology reviewed with the patient. I think it prudent to go ahead with CT imaging of the abdomen pelvis to rule out any recurrence. Additional recommendations pending CT scanresults. Urinary urgency. Suspect this is in part due to her previous radiation therapy. Will provide urge suppression Education in the patient information section of today's visit. No UTI type symptoms requiring urinalysis or culture. ?? - Recommend continuation of q. 4??month [...] ?? - Return visit in??4??months requested with [facility]. ?? I have discussed my findings in detail with the patient along with the alternatives and benefits oftreatment. I have answered all questions. PATIENT COUNSELING: The patient was interactive, attentive and verbalized understanding of the explanation of the condition and possible treatment options. Jesse Frost MPAS, P.A.-C. ERSITY MANAGER ERSITY MANAGER documented in this encounter Plan of Treatment Scheduled Referrals Name Type Priority Associated Diagnoses Order Schedule Obstetrics and Gynecology office visit (clinic) Outpatient Referral Routine Expected: 10/29/2021, Expires: 09/23/2022 documented as of this encounter Results * Creatinine with Estimated GFR (06/25/2021 [...] PM EST 06/25/2021 4:02 PM EST us RILEY Cardona, P.A.-C. LAB BLOO D ADD-ON Final Result [facility] [address] [place] [address], [facility] [place] [address] documented in this encounter Visit Diagnoses Diagnosis Nodule Vagina- Primary Pelvic And Perineal Pain Malignant Neoplasm Of Uterus (HCC) Urgency Urinary documented in this encounter
--- OUTSIDE RECORDS SUMMARY | 2024-07-17 10:35 | XMS_ITS | Encounter Summary ---
Author Organization [facility] Address [address] [place] [address] Care Team Providers Care Test Lead Application Testing Name Role Phone Unavailable Primary Care Provider Unavailabl e Reason for Referral * Outpatient (Routine) - Closed Specialty Diagnoses / Procedures Referred By Contac t Referred To Contact Radiation Oncology Diagnoses Malignant Neoplasm Of Uterus Endometrial (HCC) Maria Alejandra Ku APRN M.S.N. [facility] Referral ID Status Reason Start Date Expiration Date Visits Re quested Visits Authorized [id number] Closed 09/19/2020 09/19/2021 1 1 Scheduling Instructions Please coordinate for same day as SALES ACCOUNT DIRECTOR RTNV if possible. Thank you. * Outpatient (Routine) - Closed Specialty Diagnoses / Procedures Referred By Contac t Referred To Contact Radiation Oncology Diagnoses Malignant Neoplasm Of Uterus Endometrial (HCC) Tania Townsend M.D. [facility] Referral ID Status Reason Start Date Expiration Date Visits Re quested Visits Authorized [id number] Closed 09/23/2019 09/22/2020 1 1 Scheduling Instructions Same day as RTNV in SALES ACCOUNT DIRECTOR Reason for Visit * Reason Comments Endometrial Cancer * Outpatient (Routine) - Closed Specialty Diagnoses / Procedures Referred By Contac t Referred To Contact Radiation Oncology Diagnoses Malignant Neoplasm Of Uterus Endometrial (HCC) Tania Townsend M.D. [facility] Referral ID Status Reason Start Date Expiration Date Visits Re quested Visits Authorized [id number] Closed 09/23/2019 09/22/2020 1 1 Encounter Details Date Type Department Care Team (Late st Contact Info) Description 09/19/2020 9:27 AM EST - 09/19/2020 1:34 PM [facility] Hospital Encounter Department of Radiation Oncology in [place], [place] [address] [place] [id number] Tania Townsend M.D. Marino, Jenna L, APRN M.S.N. Malignant Neoplasm Of Uterus Endometrial (HCC) Social History Tobacco Use Types Packs/Day [...] and Family Not on file 09/17/2019 Attends [employer] Not on file Active Member of [...] Living Expenses Not hard at all 01/17/2019 [facility] [place] - Occupational Stress [...] Sign Reading Time Taken Comments Blood Pressure - - Pulse - - Temperature 36.3 ??C (97.3 ??F) 09/19/2020 9:34 AM ES T Respiratory Rate - - Oxygen Saturation - - Inhaled Oxygen Concentration - - Weight 83.4 kg (183 lb 13.8 oz) 09/19/2020 9:34 AM EST Height 160 cm (5' 3 ) 09/19/2020 9:34 AM EST Body Mass Index 32.57 09/19/2020 9:34 AM EST documented in this encounter Medications at Time of Discharge ALPRAZolam (XANAX) 0.5 mg tablet Take 0.5 mg by mouth at bedtime as needed for anxiety. aspirin [address] tablet Take 81 mg by mouth daily. atenolol (TENORMIN) 25 mg tablet Take 25 mg by mouth daily. atorvastatin (LIPITOR) 20 mg tablet Take 20 mg by mouth daily. azelastine (ASTELIN) 137 mcg/spray (0.1 %) nasal spray Administer 1 spray into each nostril 2 (two) times a day. Use in each nostril as directed Not using 12/15/18 calcium carbonate-vitami n D3 1,500 mg (600 mg calcium)-200 unit per tablet Take 1 tablet by mouth daily with breakfast. lansoprazole (PREVACID) [address] capsule Take 30 mg by mouth every morning before breakfast. metroNIDAZOLE (ROSADAN) 0.75 % gel APPLY TO FACE BID FOR 1 MONTH 1 11/17/2018 TRANSDERM-SCOP 1 mg over 3 days CYNDY 1 PA EXT TO THE SKIN Q 72 H 1 11/19/2018 documented as of this encounter Progress Notes * Maria Alejandra Ku APRN, M.S.N. - 09/19/2020 10:00 AM EST RADIATION ONCOLOGY SUBSEQUENT VISIT SUPERVISING PHYSICIAN: Dr. Townsend HISTORY OF PRESENT ILLNESS: 07/2018, began having intermittent postmenopausal vaginal bleeding. ?? 09/01/2018, outside pelvic ultrasound showed a 4 mm endometrial stripe. There was an 8 mm hypoechogenic focus with shadowing located adjacent to the endometrium in the midbody. ?? 11/30/2018, outside endometrial biopsy was positive for grade 1 endometrioid adenocarcinoma. ?? Outside CT chest abdomen pelvis was reportedly negative for metastatic disease. ?? 12/09/2018, consultation with Dr. Rose Mary Gutierrez of Gynecology Oncology. ?? 12/21/2018, robotic assisted hysterectomy, bilateral salpingo-oophorectomy, and sentinel lymph node dissection by Dr. Gutierrez. Pathology was positive for a 2 cm FIGO grade 1 endometrioid adenocarcinoma invading 80% of the myometrium (0.8/1 cm). No lower uterine segment or cervical stromal involvement. Surgical margins negative. No lymphovascular invasion. Four pelvic lymph nodes were negative. Pathological stage pT1b pN0. ?? 01/21/2019, consultation in Radiation Oncology. 01/24/2019 - 01/28/2019, adjuvant vaginal cuff HDR brachytherapy to a total dose of 2100 cGy in 3 fractions. She tolerated treatment well with no acute complications. Pelvic exams to date through SALES ACCOUNT DIRECTOR have been negative. She returns today for routine follow-up evaluation. INTERVAL HISTORY Patient has been doing well. No new urinary symptoms. She has had stable urinary urgency for several years prior to radiation that is unchanged. Denies any leakage of urine or incontinence. No vaginal discharge or bleeding. No dysuria or hematuria. Reports normal BM at least 1-2 per day without diarrhea or constipation. She has noted after she's exercised she will intermittently have a small amount of blood with wiping after a BM. Denies any straining or blood in the stool/dripping into the toilet. She does have a history of hemorrhoids. She uses an oil that seems to help. She recalls her last colonoscopy was about 2-3 years ago. No abd or pelvic pain. She is sexually active at least once per week and denies any pain or blood with intercourse. Energy level is stable. No new SOB or LE swelling. No other complaints or concerns. ROS otherwise negative. PHYSICAL EXAM: Vitals: 09/19/20 0934 Temp: 36.3 ??C PainSc: 0-No pain ECOG performance: 0 GENERAL: Well-nourished, well-developed female in no acute distress. Alert and oriented. PELVIC: Deferred since she has an appointment with SALES ACCOUNT DIRECTOR this morning. EXTREMITIES: No lower extremity edema. LABS: Reviewed in chart IMAGING: As noted above. IMPRESSION: Ms. Desai is a 70 y.o. 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 Gutierrez on 12/21/2018 (2 cm, 80% myometrial invasion, no LVSI, no DANIEL/cervical involvement, negative margins, 0/4 LNs), now status post adjuvant vaginal cuff HDR brachytherapy (01/24/2019 - 01/28/2019). PLAN: Follow-up in Radiation Oncology in 1 year. She will continue pelvic exams through SALES ACCOUNT DIRECTOR as recommended (survillence visits every 4??months the first 3 years, then every 6 months for??2 years). Recommended to continue to monitor rectal bleeding and to let SALES ACCOUNT DIRECTOR know later this morning during her exam. It is likely related to hemorrhoids. She will let us know if the bleeding becomes more frequent or becomes painful. Advised to avoid straining and constipation. She can also try taking Metamucil BID with at least 1.5-2 L of water daily. Should she have any questions or concerns, she was encouraged to contact us. I personally spent over half of a total 18 minutes face to face with the patient in counseling and discussion and/or coordination of care as described above. MACY PICKING TECH documented in this encounter Plan of Treatment Scheduled Referrals Name Type Priority Associated Diagnoses Orde r Schedule Radiation Oncology office visit (clinic) Outpatient Referral Routine Malignant Neoplasm Of Uterus Endometrial (HCC) Once for 1 Occurrences starting 09/19/2020 until 09/19/2020 Radiation Oncology office visit (clinic) Outpatient Referral Routine Malignant Neoplasm Of Uterus Endometrial (HCC) Expected: 09/19/2021 (Approximate), Expires: 09/20/2023 documented as of this encounter Visit Diagnoses Diagnosis Malignant Neoplasm Of Uterus Endometrial (HCC) documented in this encounter
--- OUTSIDE RECORDS SUMMARY | 2024-07-17 10:35 | XMS_ITS | Encounter Summary ---
Author Organization [facility] Address [address] [place] [address] Care Team Providers Care Bookstore Manager Name Role Phone Unavailable Primary Care Provider Unavailabl e Encounter Details Date Type Department Care Team (Latest Contact Info) Description 06/25/2021 3:45 PM EST - 06/25/2021 4:06 PM EST Hospital Encounter Department of Laboratory Medicine and Pathology, [facility] in [place], [place] [address] [place] [address] Natasha Bear, DMSc, MPAS, P.A.-C. [address] [place] [address] Malignant Neoplasm Of Uterus (HCC); Nodule Vagina Discharge Disposition: Home or Self Care Social [...] Living Expenses Not hard at all 01/17/2019 [facility] - Occupational [...] PM CDT documented as of this encounter Medications at [...] 1 11/19/2018 documented as of this encounter Plan of Treatment Not on file documented as of this encounter Procedures Procedure Name Priority Date/Time Associated Diagnosis Comments CREATININE WITH EGFR, S/P Routine 06/25/2021 3:50 PM EST Malignant Neoplasm Of Uterus (HCC) Nodule Vagina documented in this encounter Results * Creatinine with Estimated GFR (06/25/2021 3:50 PM EST) Creatinine 0.72 0.59 - 1.04 mg/dL 06/25/2021 4:36 PM EST JXC eGFR-Black/Afric an Icelandic >90 >=60 mL/min/BSA 06/25/2021 4:36 PM EST JXC Comment: ----ADDITIONAL INFORMATION---- Estimated GFR calculated using the 2009 CKD_EPI creatinine equation. eGFR Non-Black/Hope n Icelandic 85 >=60 mL/min/BSA 06/25/2021 4:36 PM EST JXC Comment: ----ADDITIONAL INFORMATION---- Estimated GFR calculated using the 2009 CKD_EPI creatinine equation. Blood (Blood, Venous) 06/25/2021 3:50 PM EST 06/25/2021 4:02 PM EST us Natasha BUTTS, MPAS, P.A.-C. LAB BLOO D ADD-ON Final Result [facility] CL[facility]ICAL [facility] [place] [address], [facility] JXC [facility] Clinical Lab [facility] [place] [address] documented in this encounter Visit Diagnoses Diagnosis Malignant Neoplasm Of Uterus (HCC) Nodule Vagina documented in this encounter
--- OUTSIDE RECORDS SUMMARY | 2024-07-17 10:35 | XMS_ITS | Encounter Summary ---
Author Organization [facility] Address [address] [place] [address] Care Team Providers Care Dial Lathe Operator Name Role Phone Unavailable Primary Care Provider Unavailabl e Reason for Referral * Outpatient (Routine) - Closed Specialty Diagnoses / Procedures Referred By Ryley pantoja Referred To Contact Obstetrics and Gynecology Natasha Bear DMSc, MPAS, P.A.-C. [address] [place] [address] Phone: tel: fax: [facility] Referral ID Status Reason Start Date Expiration Date Visits Re quested Visits Authorized [id number] Closed 03/03/2022 03/03/2023 1 1 Reason for Visit * Outpatient (Routine) - Closed Specialty Diagnoses / Procedures Referred By Ryley pantoja Referred To Contact Obstetrics and Gynecology Jazmin Samano P.A.-CRebeca, M.P.H. [address] [place] [address] Phone: tel: fax: [facility] Referral ID Status Reason Start Date Expiration Date Visits Re quested Visits Authorized [id number] Closed 10/30/2021 10/30/2022 1 1 Encounter Details Date Type Department Care Team (Late st Contact Info) Description 03/03/2022 11:30 AM EDT Office Visit Department of Medical and Surgical Gynecology in [place], [place] [address] [place] [address] Natasha Bear, DMS, MPAS, P.A.-C. [address] [place] [address] Malignant Neoplasm Of Uterus Endometrial (HCC) (Primary [...] and Family Not on file 09/17/2019 Attends [employer] Not on file Active Member of [...] Living Expenses Not hard at all 01/17/2019 [employer] [facility] Occupat ional Health - Occupational Stress [...] Sign Reading Time Taken Comments Blood Pressure 147/85 03/03/2022 11:09 AM EDT Pulse 85 03/03/2022 11:09 AM EDT Temperature 36.6 ??C (97.9 ??F) 03/03/2022 11:09 AM E DT Respiratory Rate - - Oxygen Saturation - - Inhaled Oxygen Concentration - - Weight - - Height - - Body Mass Index - - documented in this encounter Progress Notes * Natasha Bear, DMSc, MPAS, P.A.-C. - 03/03/2022 11:30 AM EDT Supervising Physician Dr. Matt Beach personally spent 30 minutes in care of the patient today. Time includes both non face to face andface to face patient care; greater than 50% was spent [id number] counseling coordination of care.Time does not include any procedures. SUBJECTIVE HISTORY OF PRESENT ILLNESS Claudia Desai is a 71 y.o. female who presents for a 4 month surveillance visit. She presents with her . Most recent surveillance visit was in October 30, 2021. In June due to concern regarding any [...] denies any pain or bleeding with intercourse. Did no significant change in urinary urge symptoms. No new issues with bowel function. Chest CT from June 2021 completed at a [facility] facility. Report was previously scanned into her chart. She had a chest x-ray completed in November of 2021 at an outside facility. She mentions some concerns/questions regarding billing and lack of Medicare coverage from her previous visit and chest x-ray. Review of the previous visit billing indicates the appropriate diagnosis.Patient is asked to stop by our billing office for additional assistance. Radiation oncology appointments are now on annual [...] to perform the same examination (if applicable). Echo Vasc Tech present for examination Chrissy Miguel RN VITALS: Vitals: 03/03/22 1109 BP: 147/85 Pulse: 85 Temp: 36.6 ??C There is no height or weight on file to calculate BMI. GENERAL: No acute distress; oriented to time, place and person HEAD: Normocephalic PULMONARY: Regular and non-labored respirations ABDOMEN: Soft, nondistended, no mass. no CVA tenderness LYMPH: Negative supraclavicular inguinal and groin lymphadenopathy. [...] Malignant Neoplasm Of Uterus Endometrial (HCC) PLAN: 71 y/o female with history of Stage 1B, Grade 1 endometrial carcinoma s/p Storm TLH/BSO/SLND 12/2018 followed by vaginal cuff HDR brachytherapy completed 01/28/2019. - Recommend transition from Q 4 month to q6 month for surveillance visits for the next 2 years. - She is advised to monitor for [...] be adjusted if she has symptoms. She plans to have this ordered through her local PCP. I have discussed my findings in detail [...] office visit (clinic) Outpatient Referral Routine Expected: 09/03/2022, Expires: 06/03/2023 documented as of this encounter Visit Diagnoses Diagnosis Malignant Neoplasm Of Uterus Endometrial (HCC)- Primary documented in this encounter
--- OUTSIDE RECORDS SUMMARY | 2024-07-17 10:35 | XMS_ITS | Encounter Summary ---
Author Organization [facility] Address [address] [place] [address] Care Team Providers Care Checker/Stocker Name Role Phone Unavailable Primary Care Provider Unavailabl e Reason for Referral * Outpatient (Routine) - Closed Specialty Diagnoses / Procedures Referred By Ryley pantoja Referred To Contact Obstetrics and Gynecology Jazmin Samano P.A.-C., M.P.H. [address] [place] [address] Phone: tel: fax: [facility] Referral ID Status Reason Start Date Expiration Date Visits Re quested Visits Authorized [id number] Closed 10/30/2021 10/30/2022 1 1 Reason for Visit * Reason Comments Return Visit * Outpatient (Routine) - Closed Specialty Diagnoses / Procedures Referred By Ryley pantoja Referred To Contact Obstetrics and Gynecology Natasha Bear, BECKIEc, MPAS, P.A.-C. [address] [place] [address] Phone: tel: fax: [facility] Referral ID Status Reason Start Date Expiration Date Visits Re quested Visits Authorized [id number] Closed 06/25/2021 06/25/2022 1 1 Encounter Details Date Type Department Care Team (Late st Contact Info) Description 10/30/2021 11:30 AM EDT Office Visit Department of Medical and Surgical Gynecology in [place], [place] [address] [place] [address] Patricia Laboy APRN [address] [place] [address] Jazmin Samano P.A.-C., M.P.H. [address] [place] [address] Malignant Neoplasm Of Uterus Endometrial [...] and Family Not on file 09/17/2019 Attends [employer] Not on file Active Member of [...] Living Expenses Not hard at all 01/17/2019 [facility] [place] of Occupat ional Health - Occupational Stress [...] Sign Reading Time Taken Comments Blood Pressure 145/83 10/30/2021 11:05 AM EDT Pulse 82 10/30/2021 11:05 AM EDT Temperature 36.5 ??C (97.7 ??F) 10/30/2021 11:05 AM E DT Respiratory Rate - - Oxygen Saturation - - Inhaled Oxygen Concentration - - Weight 85.3 kg (188 lb 0.8 oz) 10/30/2021 11:05 AM EDT Height - - Body Mass Index 33.31 09/19/2020 9:34 AM EST documented in this encounter Progress Notes * Jazmin Samano, PRebecaA.-C. - 10/30/2021 11:30 AM EDT Supervising Physician Dr. Zurita I personally spent 25 minutes in care of the patient today. Time includes both non face to face andface to face patient care. And greater than 50% was spent [id number] counseling coordination of care. SUBJECTIVE HISTORY OF PRESENT ILLNESS Claudia Desai is a 71 y.o. female who presents for a 4 month surveillance visit. She presents with her . Most recent surveillance visit was in June with Natasha Bear PA-C. At this time, there was concern for new nodule at the rectovaginal septum. Patient had CT ab/pelvis that was benign. Patient reports follow up colonoscopy identified polyp that was benign. She did not have a copy of this report with her today. Patient is status post hysterectomy with bilateral [...] from January 10, 2021 completed at a [facility] facility. Patient was kind enough to bring [...] to perform the same examination (if applicable). Care Manager Cna present for examination Yamilet Easley RN VITALS: Vitals: 10/30/21 1105 BP: 145/83 Pulse: 82 Temp: 36.5 ??C Body mass index is 33.31 kg/m??. GENERAL: No acute distress; oriented to [...] or discharge. Bimanual exam shows no nodules. No nodules appreciated on the rectal exam. no additional nodules appreciated. ASSESSMENT / PLAN ASSESSMENT: Diagnosis Plan 1. Malignant Neoplasm Of Uterus Endometrial (HCC) DX Chest AP or PA and Lateral 2 Views PLAN: 71 y/o female with history of Stage 1B, Grade 1 endometrial carcinoma s/p Storm TLH/BSO/SLND 12/2018 followed by vaginal cuff HDR brachytherapy completed 01/28/2019. - Recommend continuation of q. 4??month return [...] ?? - Return visit in??4??months requested with [facility]. ?? -patient provided with CXR for surveillance to complete at outside facility closer to home. I have discussed my findings in detail with the patient along with the alternatives and benefits oftreatment. I have answered all questions. PATIENT COUNSELING: The patient was interactive, attentive and verbalized understanding of the explanation of the condition and possible treatment options. Jazmin Samano P.A.-C. documented in this encounter Plan of Treatment Scheduled Referrals Name Type Priority Associated Diagnoses Order Schedule Obstetrics and Gynecology office visit (clinic) Outpatient Referral Routine Expected: 02/26/2022 (Approximate), Expires: 01/29/2023 documented as of this encounter Visit Diagnoses Diagnosis Malignant Neoplasm Of Uterus Endometrial (HCC)- Primary documented in this encounter
--- OUTSIDE RECORDS SUMMARY | 2024-07-17 10:35 | XMS_ITS | Encounter Summary ---
Author Organization [facility] Address [address] [place] [address] Care Team Providers Care Television Host Name Role Phone Unavailable Primary Care Provider Unavailabl e Encounter Details Date Type Department Care Team (Latest Contact Info) Description 10/10/2020 Orders Only [facility] PCP [facility] Eyad Cuba M.D. [address] [place] [address] Social History Tobacco Use Types Packs/Day Years [...] and Family Not on file 09/17/2019 Attends [employer] Not on file Active Member of [...] Living Expenses Not hard at all 01/17/2019 [facility] [place] of Occupat ional Health - Occupational Stress [...] PM CDT documented as of this encounter Plan of Treatment Not on file documented as of this encounter Visit Diagnoses Not on filedocumented in this encounter
--- OUTSIDE RECORDS SUMMARY | 2024-07-17 10:35 | XMS_ITS | Encounter Summary ---
Author Organization [facility] Address [address] [place] [address] Care Team Providers Care Heel Splitter Name Role Phone Unavailable Primary Care Provider Unavailabl e Reason for Visit * MRI/CAT/PET Scan (Routine) - Closed Specialty Diagnoses / Procedures Referred By Ryley pantoja Referred To Contact Radiology Diagnoses Pelvic And Perineal Pain Procedures CT Abdomen Pelvis with IV Contrast CT Abdomen Pelvis without and with IV Contrast Natasha Bear DMSc, MPAS, P.A.-C. [address] [place] [address] Phone: tel: fax: [facility] Referral ID Status Reason Start Date Expiration Date Visits Re quested Visits Authorized [id number] Closed 06/25/2021 06/25/2022 1 1 Encounter Details Date Type Department Care Team (Latest Contact Info) Description 06/25/2021 4:07 PM EST - 06/25/2021 11:59 PM [facility] Hospital Encounter Department of Radiology, [facility], in [place], [place] [address] [place] [address] Natasha Bear DMSc, MPAS, P.A.-C. [address] [place] [address] Pelvic And Perineal Pain Discharge Disposition: Home or Self Care Social [...] and Family Not on file 09/17/2019 Attends Confucianist Services Not on file Active Member of [...] Living Expenses Not hard at all 01/17/2019 [facility] [place] of Occupat ional Health - Occupational Stress [...] 1 11/19/2018 documented as of this encounter Miscellaneous Notes * Result Encounter Note - Natasha Bear DMSc, MPAS, P.A.-C. - 06/26/2021 1:32 PM EST I was unable to reach the patient on her cell phone. Wanted to review the CT scan findings of the 1.7 cm polypoid lesion in the rectum. Recommendation for radiology's for a colonoscopy. ORICAL SITE GUIDE documented in this encounter Plan of Treatment Not on file documented as of this encounter Procedures Procedure Name Priority Date/Time Associated Diagnosis Comments CT ABDOMEN PELVIS WITH IV CONTRAST RAD - Routine (most inpatients and all outpatients) 06/25/2021 5:03 PM EST Pelvic And Perineal Pain CREATININE, POCT, B Routine 06/25/2021 4:31 PM EST documented in this encounter Results * CT Abdomen Pelvis with IV Contrast (06/25/2021 5:03 PM EST) Anatomical Region Laterality Modality Abdomen, Pelvis, Abdominal R ST LOS, Abdominal ARZ LOS, Abdominal FLA LOS N/A Computed Tomography 06/25/2021 5:58 PM EST Impressions 06/25/2021 6:11 PM EST A 1.7 cm polypoid lesion within the rectum. Recommend correlation with colonoscopy. No evidence of metastatic disease within the abdomen and pelvis. Narrative 06/25/2021 6:11 PM EST EXAM: CT ABDOMEN PELVIS WITH IV CONTRAST HISTORY: Left rectovaginal nodule palpated on pelvic examination. Endometrial carcinoma. COMPARISON: CT abdomen and pelvis dated 12/07/2018. TECHNIQUE: CT of the abdomen and pelvis after 150 ml Omnipaque 300 intravenous contrast. Oral contrast (Omnipaque 300) was administered. FINDINGS: Calcified granuloma is seen within the right middle lobe. A stable 6 mm left lower lobe nodule is identified. Heart is normal in size. ABDOMEN: Liver, gallbladder, pancreas, and adrenal glands are unremarkable. A calcified granuloma is seen along the superior spleen. Bilateral renal cortical and sinus cysts. Tiny punctate nonobstructing stone is seen within the lower pole left kidney. No hydronephrosis. Colonic diverticulosis without evidence of acute diverticulitis. No evidence of bowel obstruction. Small paraesophageal hernia. Prominent periampullary duodenal diverticulum. Atherosclerotic, nonaneurysmal abdominal aorta. Incidental left circumaortic left renal vein. No enlarged abdominal lymph nodes. No abdominal free fluid. No loculated fluid collections. PELVIS: A 1.7 cm polypoid lesion is seen within the rectum (3/726). Urinary bladder is unremarkable. Status post hysterectomy and bilateral salpingo-oophorectomy. No enlarged pelvic lymph nodes. MUSCULOSKELETAL: No aggressive osseous lesions. Procedure Note Justen Galindo M.D. - 06/25/2021 EXAM: CT ABDOMEN PELVIS WITH IV CONTRAST HISTORY: Left rectovaginal nodule palpated on pelvic examination.Endometrial carcinoma. COMPARISON: CT abdomen and pelvis dated 12/07/2018. TECHNIQUE: CT of the abdomen and pelvis after 150 ml Omnipaque 300intravenous contrast. Oral contrast (Omnipaque 300) was administered. FINDINGS: Calcified granuloma is seen within the right middle lobe. A stable 6 mmleft lower lobe nodule is identified. Heart is normal in size. ABDOMEN: Liver, gallbladder, pancreas, and adrenal glands are unremarkable. A calcified granuloma is seen along the superior spleen. Bilateral renal cortical and sinus cysts. Tiny punctate nonobstructingstone is seen within the lower pole left kidney. No hydronephrosis. Colonic diverticulosis without evidence of acute diverticulitis. Noevidence of bowel obstruction. Small paraesophageal hernia. Prominent periampullaryduodenal diverticulum. Atherosclerotic, nonaneurysmal abdominal aorta. Incidental leftcircumaortic left renal vein. No enlarged abdominal lymph nodes. No abdominal free fluid. No loculated fluid collections. PELVIS: A 1.7 cm polypoid lesion is seen within the rectum (3/726). Urinary bladder is unremarkable. Status post hysterectomy and bilateral salpingo-oophorectomy. No enlarged pelvic lymph nodes. MUSCULOSKELETAL: No aggressive osseous lesions. IMPRESSION: A 1.7 cm polypoid lesion within the rectum. Recommend correlation with colonoscopy. No evidence of metastatic disease within the abdomen andpelvis. Natasha BUTTS, MPAS, P.A.-C. IMG CT P ROCEDURES Final Result * Creatinine, POCT (06/25/2021 4:31 PM EST) Creatinine, POCT, B 0.7 0.6 - 1.0 mg/dL 06/25/2021 4:31 PM EST JX Comment: AnalyzedBy [id number] ----ADDITIONAL INFORMATION---- Performed at the Point of Care eGFR-Black/Afric an Indian, POCT >90 =>60 mL/min/BSA 06/25/2021 4:46 PM EST JX Comment: ----ADDITIONAL INFORMATION---- Estimated GFR calculated using the 2009 CKD_EPI creatinine equation. eGFR Non-Black/Hope n Indian, POCT 88 >=60 mL/min/BSA 06/25/2021 4:46 PM EST JX Comment: ----ADDITIONAL INFORMATION---- Performed at the Point of Care Blood 06/25/2021 4:31 PM EST 06/25/2021 4:46 PM EST us Generic [facility] LAB POCT ORDERABLES - DEVICE Fin al Result [facility] [address] [place] [address], [place] [address] documented in this encounter Visit Diagnoses Diagnosis Pelvic And Perineal Pain documented in this encounter Administered Medications Inactive Administered Medications - up to 3 most recent administrations Medication Order MAR Action Action Date Dose Rate Site iohexoL 300 mg iodine/mL solution 1-200 mL (OMNIPAQUE) 1-200 mL, intravenous, Once in imaging, contrast, Starting on Thu06/25/21 at 1626, For 1 dose, Imaging Protocol Orders, Dose per Radiant Medication Guidelines Given 06/25/2021 5:04 PM EST 150 mL sodium chloride (PF) 0.9 % injection 1-100 mL 1-100 mL, intravenous, Once, On Thu06/25/21 at 1630, For 1 dose, Imaging Protocol Orders Given 06/25/2021 5:04 PM EST 100 mL documented in this encounter
--- OUTSIDE RECORDS SUMMARY | 2024-07-17 10:35 | XMS_ITS | Encounter Summary ---
Author Organization [facility] Address [address] [place] [address] Care Team Providers Care Mini Lab Operator Name Role Phone Unavailable Primary Care Provider Unavailabl e Reason for Referral * Outpatient (Routine) - Closed Specialty Diagnoses / Procedures Referred By Contac t Referred To Contact Radiation Oncology Diagnoses Malignant Neoplasm Of Uterus Endometrial (HCC) Maria Alejandra Ku APRN, M.S.N. [facility] Referral ID Status Reason Start Date Expiration Date Visits Re quested Visits Authorized [id number] Closed 09/19/2020 09/19/2021 1 1 Scheduling Instructions Please coordinate for same day as SENIOR MECHANICAL PROJECT ENGINEER RTNV if possible. Thank you. Reason for Visit * Reason Comments Return Visit * Outpatient (Routine) - Closed Specialty Diagnoses / Procedures Referred By Ryley pantoja Referred To Contact Radiation Oncology Diagnoses Malignant Neoplasm Of Uterus Endometrial (HCC) Maria Alejandra Ku APRN, M.S.N. [facility] Referral ID Status Reason Start Date Expiration Date Visits Re quested Visits Authorized [id number] Closed 09/19/2020 09/19/2021 1 1 Encounter Details Date Type Department Care Team (Latest Contact Info) Description 10/30/2021 12:34 PM EDT - 10/30/2021 1:35 PM EDT Hospital Encounter Department of Radiation Oncology in [place], [place] [address] [facility] [place] [address] Maria Alejandra Ku APRN, M.S.N. Malignant Neoplasm Of Uterus Endometrial (HCC) [...] and Family Not on file 09/17/2019 Attends Taoism Services Not on file Active Member of [...] Living Expenses Not hard at all 01/17/2019 [facility] of Occupat ional Health - Occupational Stress [...] Time Taken Comments Blood Pressure 145/83 10/30/2021 12:46 PM EDT Pulse 82 10/30/2021 12:46 PM EDT Temperature 36.5 ??C (97.7 ??F) 10/30/2021 12:46 PM E DT Respiratory Rate - - Oxygen Saturation - - Inhaled Oxygen Concentration - - Weight 85.3 kg (188 lb 0.8 oz) 10/30/2021 12:46 PM EDT Height - - Body Mass Index [...] as of this encounter Progress Notes * [place] Maria Alejandra CHANEL Griffin, M.S.N. - 10/30/2021 1:00 PM EDT RADIATION ONCOLOGY SUBSEQUENT VISIT SUPERVISING PHYSICIAN: Dr. [...] acute complications. Pelvic exams to date through SENIOR MECHANICAL PROJECT ENGINEER have been negative. She returns today for [...] per day without diarrhea or constipation. She had a normal routine colonoscopy earlier this year. No abd or pelvic pain. She is sexually active at least 2-4 times per week and denies any pain or blood with intercourse. Energy level is stable. No new SOB or LE swelling. No other complaints or concerns. ROS otherwise negative. PHYSICAL EXAM: Vitals: 10/30/21 1246 BP: 145/83 Pulse: 82 Temp: 36.5 ??C ECOG performance: 0 GENERAL: Well-nourished, well-developed female in no acute distress. Alert and oriented. PELVIC: Deferred since she has an appointment with SENIOR MECHANICAL PROJECT ENGINEER this morning. EXTREMITIES: No lower extremity edema. LABS: Reviewed in chart IMAGING: As noted above. IMPRESSION: Ms. Desai is a 71 y.o. F from [place], [place] with pathological stage IB, pT1b??pN0 cM0, [...] year. She will continue pelvic exams through SENIOR MECHANICAL PROJECT ENGINEER as recommended (survillence visits every 4??months the first 3 years, then every 6 months for??2 years). Should she have any questions or concerns, she was encouraged to contact us. I personally spent over half of a total 18 minutes face to face with the patient in counseling and discussion and/or coordination of care as described above. documented in this encounter Plan of Treatment Scheduled Referrals Name Type Priority Associated Diagnoses Orde r Schedule Radiation Oncology office visit (clinic) Outpatient Referral Routine Malignant Neoplasm Of Uterus Endometrial (HCC) Once for 1 Occurrences starting 10/30/2021 until 10/30/2021 documented as of this encounter Visit Diagnoses Diagnosis Malignant Neoplasm Of Uterus Endometrial (HCC) documented in this encounter
--- OUTSIDE RECORDS SUMMARY | 2024-07-17 10:35 | XMS_ITS | Encounter Summary ---
Author Organization [facility] Address [address] [place] [address] Care Team Providers Care Powerhouse Mechanic Name Role Phone Unavailable Primary Care Provider Unavailabl e Reason for Referral * Outpatient (Routine) - Closed Specialty Diagnoses / Procedures Referred By Ryley pantoja Referred To Contact Obstetrics and Gynecology Diagnoses Malignant Neoplasm Of Uterus (HCC) Inna Turner, P.A.-C. [address] [place] [address] Phone: tel: fax: [facility] Referral ID Status Reason Start Date Expiration Date Visits Re quested Visits Authorized [id number] Closed 09/19/2020 09/19/2021 1 1 Reason for Visit * Reason Comments Pre-visit Intake Return Visit 4 month check * Outpatient (Routine) - Closed Specialty Diagnoses / Procedures Referred By Ryley pantoja Referred To Contact Obstetrics and Gynecology Diagnoses Malignant Neoplasm Of Uterus (HCC) Inna Turner, P.A.-C. [address] [place] [address] Phone: tel: fax: [facility] Referral ID Status Reason Start Date Expiration Date Visits Re quested Visits Authorized [id number] Closed 05/04/2020 05/04/2021 1 1 Encounter Details Date Type Department Care Team (Late st Contact Info) Description 09/19/2020 11:00 AM EST Office Visit Department of Medical and Surgical Gynecology in [place], [place] [address] [place] [address] Inna Turner, P.A.-C. [address] [place] [address] Malignant Neoplasm Of Uterus (HCC) [...] and Family Not on file 09/17/2019 Attends Restoration Services Not on file Active Member of [...] Living Expenses Not hard at all 01/17/2019 [facility] [place] of Occupat ional Health - Occupational Stress [...] Sign Reading Time Taken Comments Blood Pressure 146/82 09/19/2020 10:35 AM EST Pulse 82 09/19/2020 10:35 AM EST Temperature 36.2 ??C (97.2 ??F) 09/19/2020 1 0:35 AM EST Respiratory Rate - - Oxygen Saturation - - Inhaled Oxygen Concentration - - Weight 83.3 kg (183 lb 10.3 oz) 021 10:35 AM EST Height - - Body Mass Index 32.53 09/19/2020 9:34 AM EST documented in this encounter Progress Notes * Inna Turner, Rosa MariaATamikaC. - 09/19/2020 11:00 AM EST ??CHIEF COMPLAINT Chief Complaint Patient presents with ??? Pre-visit Intake ??? Return Visit 4 month check SUBJECTIVE HISTORY OF PRESENT ILLNESS Claudia Desai is a 70 y.o. female who presents with a chief complaint of Chief Complaint Patient presents with ??? Pre-visit Intake ??? Return Visit 4 month check She was last seen by myself on 04/2020. Patient is status post hysterectomy with bilateral salpingo oophorectomy and sentinel lymph node dissection on December 21, 2018 for biopsy-proven grade 1 endometrial adenocarcinoma.? Final pathology was stage IB, grade 1 endometrioid carcinoma with tumor invading 1/2 from more of the myometrium.?S/P??adjuvant vaginal cuff HDR brachytherapy from January 24, 2019 through January 28, 2019. ?? She presents today for surveillance visit. ??She reports no acute gynecologic concerns. ??Denies any vaginal bleeding, discharge, pelvic pain, new or worsening abdominal pain, new or worsening low back pain, lower extremity swelling, fevers chills or night sweats. ??Denies??shortness of breath or chest pain. ?? She is sexually active and denies any pain or bleeding with intercourse.? HISTORY REVIEW The following portions of the patient's history were reviewed and updated as appropriate: allergies, current medications, family history, medical history, social history, surgical history and problemlist. REVIEW OF SYSTEMS Negative except as per HPI OBJECTIVE PHYSICAL EXAM I asked the patient's permission to perform a gynecologic (pelvic) examination as part of the evaluation for her gynecologic issues. Patient gave verbal and written consent to proceed with gynecologic exam including, but not limited to speculum, bimanual exam and/or rectovaginal exam today. Order Editor present for examination Jeny Cid DAHIANA VITALS: Vitals: 09/19/20 1035 BP: 146/82 Pulse: 82 Temp: 36.2 ??C Body mass index is 32.53 kg/m??. GENERAL: No acute distress; oriented to time, place and person HEAD: Normocephalic PULMONARY: Regular and non-labored respirations ABDOMEN: Soft, nondistended, no mass. LYMPH: Negative groin lymphadenopathy PELVIC: EGBUS normal female. Lesion no. Urethral normal. Speculum exam reveals atrophic vaginal mucosa with radiation changes. No lesions. No blood or discharge. Bimanual exam confirms palpably smooth and well supported vaginal cuff without any nodularity or mass. Rectovaginal exam confirmatory without any mass. EXTREMITIES: Normal range of motion and gait without any lower extremity edema IMAGING: Next chest CT scheduled October 2020. Mammogram up-to-date per patient report. ASSESSMENT / PLAN ASSESSMENT: Diagnosis Plan 1. Malignant Neoplasm Of Uterus (HCC) Obstetrics and Gynecology office visit (clinic) Obstetrics and Gynecology office visit (clinic) PLAN: 70 y/o female with history of Stage 1B, Grade 1 endometrial carcinoma s/p Stomr TLH/BSO/SLND 12/2018 followed by vaginal cuff HDR brachytherapy completed 01/28/2019. ?? Patient is doing well. ??Clinically MILO status post surgery. ? - Recommend continuation of q. 4??month return [...] ?? - Return visit in??4??months requested with [facility]. ?? I have discussed my findings in detail with the patient along with the alternatives and benefits oftreatment. I have answered all questions. PATIENT COUNSELING: The patient was interactive, attentive and verbalized understanding of the explanation of the condition and possible treatment options. Yes. I personally spent over half of a total 27 minutes in counseling and discussion with the patient and coordination of care as described above. Inna Turner P.A.-C. L HOUSEKEEPER documented in this encounter Plan of Treatment Scheduled Referrals Name Type Priority Associated Diagnoses Order Schedule Obstetrics and Gynecology office visit (clinic) Outpatient Referral Routine Malignant Neoplasm Of Uterus (HCC) Expected: 01/19/2021 (Approximate), Expires: 09/20/2023 documented as of this encounter Visit Diagnoses Diagnosis Malignant Neoplasm Of Uterus (HCC) documented in this encounter
--- OUTSIDE RECORDS SUMMARY | 2024-07-17 10:36 | XMS_ITS | Encounter Summary ---
Author Organization [facility] Address [address] [place] [address] Care Team Providers Care Furniture Lumber Production Worker Name Role Phone Unavailable Primary Care Provider Unavailabl e Reason for Referral * Outpatient (Routine) - Closed Specialty Diagnoses / Procedures Referred By Ryley pantoja Referred To Contact Obstetrics and Gynecology Diagnoses Malignant Neoplasm Of Uterus (HCC) Inna Turner, P.A.-C. [address] [place] [address] Phone: tel: fax: [facility] Referral ID Status Reason Start Date Expiration Date Visits Re quested Visits Authorized [id number] Closed 01/03/2020 01/02/2021 1 1 Reason for Visit * Reason Comments Return Visit Pt is here for surve illance. * Outpatient (Routine) - Closed Specialty Diagnoses / Procedures Referred By Ryley pantoja Referred To Contact Obstetrics and Gynecology Diagnoses Malignant Neoplasm Of Uterus (HCC) Inna Turner, P.A.-C. [address] [place] [address] Phone: tel: fax: [facility] Referral ID Status Reason Start Date Expiration Date Visits Re quested Visits Authorized [id number] Closed 09/15/2019 09/14/2020 1 1 Encounter Details Date Type Department Care Team (Late st Contact Info) Description 01/03/2020 11:30 AM EDT Office Visit Department of Medical and Surgical Gynecology in [place], [place] [address] [facility] [place] [address] Inna Turner, P.A.-C. [address] [place] [address] Malignant Neoplasm Of Uterus (HCC) [...] Living Expenses Not hard at all 01/17/2019 [facility] [place] of Occupat ional Health - Occupational Stress [...] Dental Answer Date Recorded Dental: Regular Dentist 11 01/18/20 19 Education Answer Date Recorded What is the [...] Sign Reading Time Taken Comments Blood Pressure 133/76 01/03/2020 11:07 AM EDT Pulse 82 01/03/2020 11:07 AM EDT Temperature 36.7 ??C (98.1 ??F) 01/03/2020 1 1:07 AM EDT Respiratory Rate - - Oxygen Saturation - - Inhaled Oxygen Concentration - - Weight 87.9 kg (193 lb 12.6 oz) 020 11:07 AM EDT Height - - Body Mass Index 33.49 12/21/2018 11:55 AM EDT documented in this encounter Progress Notes * Inna Turner, Rosa MariaA.-C. - 01/03/2020 11:30 AM EDT ??CHIEF COMPLAINT Chief Complaint Patient presents with ??? Return Visit Pt is here for surveillance. SUPERVISING PHYSICIAN Rogelio Zurita III, MD SUBJECTIVE HISTORY OF PRESENT ILLNESS Claudia Desai is a 69 y.o. female who presents with a chief complaint of Chief Complaint Patient presents with ??? Return Visit Pt is here for surveillance. She was last seen by myself on 09/15/2019. ??Patient is status post hysterectomy with bilateral salpingo oophorectomy and sentinel lymph node dissection on December 21, 2018 for biopsy-proven grade 1 endometrial adenocarcinoma.??Final pathology patient was stage IB, grade 1 endometrioid carcinoma with tumor invading 1/2 from more of the myometrium.?S/P adjuvant vaginal cuff HDR brachytherapy from January 24, 2019 through January 28, 2019. ?? She presents today for surveillance visit. ??She reports no acute gynecologic concerns. ?? Denies any vaginal bleeding, discharge, pelvic pain, new or worsening abdominal pain, new or worsening low back pain, lower extremity swelling, fevers chills or night sweats. ??Denies shortness of breath or chest pain. ?? She is sexually active and denies any pain or bleeding with intercourse. ?? HISTORY REVIEW The following portions of the patient's history were reviewed and updated as appropriate: allergies, current medications, family history, medical history, social history, surgical history and problemlist. REVIEW OF SYSTEMS Negative except as per HPI OBJECTIVE PHYSICAL EXAM Insolvency Consultant present for examination Katie Ramirez RN VITALS: Vitals: 01/03/20 1107 BP: 133/76 Pulse: 82 Temp: 36.7 ??C Body mass index is 33.49 kg/m??. GENERAL: No acute distress; oriented to time, place and person HEAD: Normocephalic PULMONARY: Regular and non-labored respirations ABDOMEN: Soft, nondistended, nontender. No appreciable mass or rebound tenderness. LYMPH: Negative for groin and supraclavicular lymphadenopathy PELVIC: EGBUS normal female. Lesion no. Urethral normal. Speculum exam reveals pink vaginal mucosa.Rugation absent. Cervix absent. Normal, no discharge. Bimanual exam reveals palpably normal bladderand urethra, nontender. Uterus and adnexa surgically absent. No pelvic mass. ?? Rectovaginal exam without nodularity or mass. ?? ASSESSMENT / PLAN ASSESSMENT: Diagnosis Plan 1. Malignant Neoplasm Of Uterus (HCC) Obstetrics and Gynecology office visit (clinic) Obstetrics and Gynecology office visit (clinic) DX Chest AP or PA and Lateral 2 Views PLAN: Patient is doing well. Clinically MILO status post surgery. Recommend continuation of q. 4 month return visit for surveillance the first 3 years, then q. 6 months for 2 years. ?? She is advised to monitor for signs and symptoms of recurrent disease, to include: vaginal bleeding, new pelvic or abdominal pain or bloating, new swelling of a leg, any pain that is persistent or progressive, new onset cough or shortness of breath, change in bladder or bowel habits. ?? Return visit in 4 months requested with [facility]. ?? I have discussed my findings in detail with the patient along with the alternatives and benefits oftreatment. I have answered all questions. PATIENT COUNSELING: The patient was interactive, attentive and verbalized understanding of the explanation of the condition and possible treatment options. Yes. I personally spent over half of a total 20 minutes in counseling and discussion with the patient and coordination of care as described above. Inna Turner P.A.-C. documented in this encounter Plan of Treatment Scheduled Referrals Name Type Priority Associated Diagnoses Order Schedule Obstetrics and Gynecology office visit (clinic) Outpatient Referral Routine Malignant Neoplasm Of Uterus (HCC) Expected: 05/04/2020 (Approximate), Expires: 01/02/2023 documented as of this encounter Visit Diagnoses Diagnosis Malignant Neoplasm Of Uterus (HCC) documented in this encounter
--- OUTSIDE RECORDS SUMMARY | 2024-07-17 10:36 | XMS_ITS | Encounter Summary ---
Author Organization [facility] [place] [facility] Address [address] [place] [address] Care Team Providers Care Factory Expert Name Role Phone Unavailable Primary Care Provider Unavailabl e Reason for Referral * Outpatient (Routine) - Closed Specialty Diagnoses / Procedures Referred By Ryley pantoja Referred To Contact Obstetrics and Gynecology Diagnoses Malignant Neoplasm Of Uterus (HCC) Inna Turner, P.A.-C. [address] [place] [address] Phone: tel: fax: [facility] Referral ID Status Reason Start Date Expiration Date Visits Re quested Visits Authorized [id number] Closed 05/04/2020 05/04/2021 1 1 Reason for Visit * Reason Comments Gynecologic Exam * Outpatient (Routine) - Closed Specialty Diagnoses / Procedures Referred By Ryley pantoja Referred To Contact Obstetrics and Gynecology Diagnoses Malignant Neoplasm Of Uterus (HCC) Inna Turner, P.A.-C. [address] [place] [address] Phone: tel: fax: [facility] Referral ID Status Reason Start Date Expiration Date Visits Re quested Visits Authorized [id number] Closed 01/03/2020 01/02/2021 1 1 Encounter Details Date Type Department Care Team (Late st Contact Info) Description 05/04/2020 11:00 AM EDT Office Visit Department of Medical and Surgical Gynecology in [place], [place] [address] [place] [address] Inna Turner, P.A.-C. [address] [place] [address] Malignant Neoplasm Of Uterus (HCC) [...] and Family Not on file 09/17/2019 Attends [employer]az[employer] Services Not on file Active Member of [...] Living Expenses Not hard at all 01/17/2019 [facility] [place] of Occupat ional Health - Occupational Stress [...] Answer Date Recorded Dental: Regular Dentist 11 04/04/20 20 Education Answer Date Recorded What is the [...] Sign Reading Time Taken Comments Blood Pressure 133/83 05/04/2020 11:07 AM EDT Pulse 91 05/04/2020 11:07 AM EDT Temperature 36.7 ??C (98.1 ??F) 05/04/2020 11:07 AM E DT Respiratory Rate - - Oxygen Saturation - - Inhaled Oxygen Concentration - - Weight 86.7 kg (191 lb 2.2 oz) 05/04/2020 11:07 AM EDT Height - - Body Mass Index 33.04 12/21/2018 11:55 AM EDT documented in this encounter Progress Notes * Inna Turner, PRebecaA.-C. - 05/04/2020 11:00 AM EDT ??CHIEF COMPLAINT Chief Complaint Patient presents with ??? Gynecologic Exam SUBJECTIVE HISTORY OF PRESENT ILLNESS Claudia Desai is a 70 y.o. female who presents with a chief complaint of Chief Complaint Patient presents with ??? Gynecologic Exam She was last seen by myself on 01/03/2020. She was last seen by myself on 09/15/2019. ??Patient is status post hysterectomy with bilateral salpingo oophorectomy and sentinel lymph node dissection on December 21, 2018 for biopsy-proven grade 1 endometrial adenocarcinoma.?? Final pathology was stage IB, grade 1 [...] denies any pain or bleeding with intercourse.? She had a CT chest performed with local provider on 11/09/2019 to f/u lung nodules. She has stable 6.1 mm nodule in the LLL and a 5.5 mm nodule in the RML. Follow-up in 12 months has been requested with her PCP. Images were loaded today. HISTORY REVIEW The following portions of the patient's history were reviewed and updated as appropriate: allergies, current medications, family history, medical history, social history, surgical history and problemlist. REVIEW OF SYSTEMS Negative except as per hPI OBJECTIVE PHYSICAL EXAM I asked the patient's permission to perform a gynecologic (pelvic) examination as part of the evaluation for her gynecologic issues. Patient gave verbal and written consent to proceed with gynecologic exam including, but not limited to speculum, bimanual exam and/or rectovaginal exam today. Optical Glass Inspector present for examination Yamilet Easley RN VITALS: Vitals: 05/04/20 1107 BP: 133/83 Pulse: 91 Temp: 36.7 ??C Body mass index is 33.04 kg/m??. GENERAL: No acute distress; oriented to time, place and person HEAD: Normocephalic PULMONARY: Regular and non-labored respirations ABDOMEN:?Soft, nondistended, nontender. ??No appreciable mass or rebound tenderness. LYMPH:?Negative for groin and supraclavicular lymphadenopathy PELVIC: EGBUS normal female. Lesion??no. Urethral normal. ??Speculum exam reveals pink vaginal mucosa. ??Rugation absent. ??Cervix absent.??Normal, no discharge.?Bimanual exam reveals palpably normal bladder and urethra, nontender.?Uterus and adnexa surgically absent.?No pelvic mass. ?? Rectovaginal exam??without nodularity or mass. EXTREMITIES: No edema or gait disturbance. ASSESSMENT / PLAN ASSESSMENT: Diagnosis Plan 1. Malignant Neoplasm Of Uterus (HCC) Obstetrics and Gynecology office visit (clinic) PLAN: 70 y/o female with history of Stage 1B, Grade 1 endometrial carcinoma s/p Storm TLH/BSO/SLND 12/2018 followed by vaginal cuff HDR brachytherapy completed 01/28/2019. Patient is doing well. ??Clinically MILO status post surgery. ?? - Recommend continuation of q. 4??month [...] ?? - Return visit in??4??months requested with [facility]. I have discussed my findings in detail with the patient along with the alternatives and benefits oftreatment. I have answered all questions. PATIENT COUNSELING: The patient was interactive, attentive and verbalized understanding of the explanation of the condition and possible treatment options. Yes. I personally spent over half of a total 28 minutes in counseling and discussion with the patient and coordination of care as described above. Inna Turner P.A.-C. documented in this encounter Plan of Treatment Scheduled Referrals Name Type Priority Associated Diagnoses Order Schedule Obstetrics and Gynecology office visit (clinic) Outpatient Referral Routine Malignant Neoplasm Of Uterus (HCC) Expected: 09/04/2020 (Approximate), Expires: 05/04/2023 documented as of this encounter Visit Diagnoses Diagnosis Malignant Neoplasm Of Uterus (HCC) documented in this encounter
--- OUTSIDE RECORDS SUMMARY | 2024-07-17 10:36 | XMS_ITS | Encounter Summary ---
Author Organization [facility] Address [address] [place] [address] Care Team Providers Care Consumer Recruiter Name Role Phone Unavailable Primary Care Provider Unavailabl e Reason for Referral * Outpatient (Routine) - Closed Specialty Diagnoses / Procedures Referred By Ryley pantoja Referred To Contact Radiation Oncology Diagnoses Malignant Neoplasm Of Uterus Endometrial (HCC) Tania Townsend M.D. [facility] Referral ID Status Reason Start Date Expiration Date Visits Re quested Visits Authorized [id number] Closed 01/28/2019 01/28/2020 1 1 Scheduling Instructions Same day as [facility] Yue in [employer]PERATURE LOGGING OPERATOR Encounter Details Date Type Department Care Team (Late st Contact Info) Description 01/28/2019 7:40 AM EDT - 01/28/2019 8:57 AM EDT Hospital Encounter Department of Radiation Oncology in [address] [address] Tania Townsend M.D. Malignant Neoplasm Of Uterus Endometrial (HCC) Social [...] Sexually Abused No 01/17/2019 Social Connection and Isolat ion Panel [NHANES] Answer Date Recorded Frequency of Communication w ith Friends and Family More than three times a week 01/17/2019 Frequency of Social Gatherin gs with Friends and Family More than three times a week 01/17/2019 Attends Scientology Services Patient declined 07/2018 Active Member of Clubs or Organizations Yes 01/17/2019 Attends Club or Organization Meetings More than 4 times per year 01/17/2019 Marital Status 01/17/2019 AUDIT-C Answer Date Recorded Frequency of Alcohol Consumption Never 01/17/2019 Average Number of Drinks Not on file 019 Frequency of Binge Drinking Never 07/2018 Overall Financial Resource Strain (CARDIA) Answe r Date Recorded Difficulty of Paying Living Expenses Not hard at all 01/17/2019 [facility] of Occupat ional Health - Occupational Stress Questionnaire Answer Date Recorded Feeling of Stress Not at all 01/17/2019 Exercise Vital Sign Answer Date Recorde d Days of Exercise per Week 5 days 2018 Minutes of Exercise per Session 90 min 01/17/2019 Hunger Vital Sign Answer Date Recorded Worried About Running Out of Food in the Last Ye ar Never true 01/17/2019 Ran Out of Food in the Last Year Never true 01/17/2019 PRAPARE - Transportation Answer Date Re corded Lack of Transportation (Medical) No 01/17/2019 Lack of Transportation (Non-Medical) No 01/17/2019 Nutrition Answer Date Recorded Nutrition: EVOO Fat Source 12 01/17 Nutrition: Servings of Fruits/Vegetables per Day 2-3 01/17/2019 Dental Answer Date Recorded Dental: Regular Dentist [...] 1 11/19/2018 documented as of this encounter Procedure Notes * Tania Townsend M.D. - 01/28/2019 8:40 AM EDTAssociated Order(s): Brachytherapy HDR Post-Procedure Diagnose(s): Malignant Neoplasm Of Uterus Endometrial (HCC) Intracavitary HDR Vaginal Cylinder Treatment Procedure DIAGNOSIS Ms. 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 Gutierrez on 12/21/2018 (2 cm, 80% myometrial invasion, no LVSI, no DANIEL/cervical involvement, negative margins, 0/4 LNs), now receiving adjuvant vaginal cuff HDR brachytherapy. DOSE 2100 cGy/2100 cGy. Treatment # 3/3. PROCEDURE The patient was brought to the treatment room and placed in the supine position on the treatment table. A 3.5 cm diameter and 10 cm length vaginal cylinder was dipped in 2% Lidocaine Hydrochloride gel and inserted into the vaginal cuff. An applicator clamp and base plate were then used to secure the device within the vaginal cuff. The treatment was administered per plan. The patient tolerated the procedure without difficulty and she left the department in good condition. Brachytherapy HDR Date/Time: 01/28/2019 8:40 AM Performed by: Tania Townsend M.D. Authorized by: Tania Townsend M.D. documented in this encounter Plan of Treatment Scheduled Referrals Name Type Priority Associated Diagnoses Orde r Schedule Radiation Oncology office visit (clinic) Outpatient Referral Routine Malignant Neoplasm Of Uterus Endometrial (HCC) Expected: 05/31/2019 (Approximate), Expires: 01/28/2022 documented as of this encounter Procedures Procedure Name Priority Date/Time Associated Diagnosis Comments BRACHYTHERAPY HDR Routine 01/28/2019 8:4 0 AM EDT Malignant Neoplasm Of Uterus Endometrial (HCC) documented in this encounter Results * Brachytherapy HDR (01/28/2019 8:40 AM EDT) Narrative YOSHI DOBSON - 01/28/2019 8:40 AM EDT Tania Townsend M.D. ? 01/28/2019 ??5:53 PM Brachytherapy HDR Date/Time: 01/28/2019 8:40 AM Performed by: Tania Townsend M.D. Authorized by: Tania Townsend M.D. Tania Townsend M.D. RADIATION ONCOLOGY ORDERAB LES Final Result YOSHI DOBSON na documented in this encounter Visit Diagnoses Diagnosis Malignant Neoplasm Of Uterus Endometrial (HCC) documented in this encounter
--- OUTSIDE RECORDS SUMMARY | 2024-07-17 10:36 | XMS_ITS | Encounter Summary ---
Author Organization [facility] Address [address] [place] [address] Care Team Providers Care Glass Beveller Name Role Phone Unavailable Primary Care Provider Unavailabl e Reason for Referral * Outpatient (Routine) - Closed Specialty Diagnoses / Procedures Referred By Ryley pantoja Referred To Contact Obstetrics and Gynecology Diagnoses Malignant Neoplasm Of Uterus (HCC) Inna Turner, P.A.-C. [address] [place] [address] Phone: tel: fax: [facility] Referral ID Status Reason Start Date Expiration Date Visits Re quested Visits Authorized [id number] Closed 09/15/2019 09/14/2020 1 1 Reason for Visit * Reason Comments Return Visit Pt is here for surve illance. She states no concerns at this time. * Outpatient (Routine) - Closed Specialty Diagnoses / Procedures Referred By Ryley pantoja Referred To Contact Obstetrics and Gynecology Diagnoses Malignant Neoplasm Of Uterus (HCC) Inna Turner, P.A.-C. [address] [place] [address] Phone: tel: fax: [facility] Referral ID Status Reason Start Date Expiration Date Visits Re quested Visits Authorized [id number] Closed 05/17/2019 05/16/2020 1 1 Encounter Details Date Type Department Care Team (Late st Contact Info) Description 09/15/2019 2:30 PM EST Office Visit Department of Medical and Surgical Gynecology in [place], [place] [address] [facility] [place] [address] Inna Turner, P.A.-C. [address] [place] [address] Malignant Neoplasm Of Uterus (HCC) [...] than three times a week 01/17/2019 Attends Buddhist Services Patient declined 07/2018 Active Member of [...] Living Expenses Not hard at all 01/17/2019 [facility] [place] of Occupat ional Health - Occupational [...] Sign Reading Time Taken Comments Blood Pressure 132/78 09/15/2019 2:10 PM EST Pulse 74 09/15/2019 2:10 PM EST Temperature 36.5 ??C (97.7 ??F) 09/15/2019 2:10 PM ES T Respiratory Rate - - Oxygen Saturation - - Inhaled Oxygen Concentration - - Weight 88.3 kg (194 lb 10.7 oz) 09/15/2019 2:10 PM EST Height - - Body Mass Index 33.65 12/21/2018 11:55 AM EDT documented in this encounter Progress Notes * Inna Turner, P.A.-C. - 09/15/2019 2:30 PM EST ??CHIEF COMPLAINT Chief Complaint Patient presents with ??? Return Visit Pt is here for surveillance. She states no concerns at this time. SUPERVISING PHYSICIAN Rogelio Zurita III, MD SUBJECTIVE HISTORY OF PRESENT ILLNESS Claudia Desai is a 69 y.o. female who presents with a chief complaint of Chief Complaint Patient presents with ??? Return Visit Pt is here for surveillance. She states no concerns at this time. She was last seen by myself on 05/17/2019. Patient is status post hysterectomy with bilateral salpingo oophorectomy and sentinel lymph node dissection on December 21, 2018 for biopsy-proven grade 1 endometrial adenocarcinoma. Final pathology patient was stage IB, grade 1 endometrioid carcinoma with tumor invading 1/2 from more of the myometrium. Therefore she underwent adjuvant vaginal cuff HDR brachytherapy from January 24, 2019 through January 28, 2019. ?? She presents today with her for her for surveillance visit. She reports no acute gynecologic concerns. Denies any vaginal bleeding, discharge, pelvic pain, new or worsening abdominal pain, new or worsening low back pain, lower extremity swelling, fevers chills or night sweats. She does report her preoperative CT of the chest did have an abnormality in which her primary care provider has recommended a repeat CT in 1 year and is scheduled for September of 2019. She otherwise voices no shortness of breath or chest pain. ?? She is sexually active and denies any pain or bleeding with intercourse. She continues to note someurinary urgency. She did have this prior to surgery and tried anti muscularinic without any improvement in symptoms and discontinued it due to constipation difficulties. HISTORY REVIEW The following portions of the patient's history were reviewed and updated as appropriate: allergies, current medications, family history, medical history, social history, surgical history and problemlist. REVIEW OF SYSTEMS Negative except As per HPI OBJECTIVE PHYSICAL EXAM Field Service Rep present for examination Mago Coyne RN VITALS: Vitals: 09/15/19 1410 BP: 132/78 Pulse: 74 Temp: 36.5 ??C Body mass index is 33.65 kg/m??. GENERAL: No acute distress; oriented to time, place and person HEAD: Normocephalic PULMONARY: Regular and non-labored respirations ABDOMEN: Soft, nondistended, nontender. No appreciable mass or rebound tenderness. GROIN: Negative for lymphadenopathy PELVIC: EGBUS normal female. Lesion no. Urethral normal. Speculum exam reveals pink vaginal mucosa.Rugation absent. Cervix absent. Normal, no discharge. Bimanual exam reveals palpably normal bladderand urethra, nontender. Uterus and adnexa surgically absent. No pelvic mass. Rectovaginal exam without nodularity or mass. ASSESSMENT / PLAN ASSESSMENT: Diagnosis Plan 1. Malignant Neoplasm Of Uterus (HCC) Obstetrics and Gynecology office visit (clinic) Obstetrics and Gynecology office visit (clinic) PLAN: Patient is doing well. Clinically MILO status post surgery. Recommend continuation of q. 4 month return visit for surveillance the first 3 years, then q. 6 months for 2 years. She is advised to monitor for signs and symptoms of recurrent disease, to include: vaginal bleeding, new pelvic or abdominal pain or bloating, new swelling of a leg, any pain that is persistent or progressive, new onset cough or shortness of breath, change in bladder or bowel habits. Return visit in 4 months requested with [facility]. I have discussed my findings [...] care as described above. Inna Turner P.A.-C. TRICAL HELPER documented in this encounter Plan of Treatment Scheduled Referrals Name Type Priority Associated Diagnoses Order Schedule Obstetrics and Gynecology office visit (clinic) Outpatient Referral Routine Malignant Neoplasm Of Uterus (HCC) Expected: 01/14/2020 (Approximate), Expires: 09/15/2022 documented as of this encounter Visit Diagnoses Diagnosis Malignant Neoplasm Of Uterus (HCC) documented in this encounter
--- OUTSIDE RECORDS SUMMARY | 2024-07-17 10:36 | XMS_ITS | Encounter Summary ---
Author Organization [facility] Address [address] [place] [address] Care Team Providers Care Electric Range Servicer Name Role Phone Unavailable Primary Care Provider Unavailabl e Encounter Details Date Type Department Care Team (Late st Contact Info) Description 01/28/2019 Documentation Department of Radiation Oncology in [place], [place] [address] [place] [address] Denia Maher M.S.Quin., L.C.S.W. [address] [place] [address] Social History Tobacco Use Types [...] than three times a week 01/17/2019 Attends [employer] Services Patient declined 07/2018 Active Member of Clubs or Organizations Yes 01/17/2019 Attends Club or Organization Meetings More than 4 times per year 01/17/2019 Marital Status 01/17/2019 AUDIT-C Answer Date Recorded Frequency of Alcohol Consumption Never 01/17/2019 Average Number of Drinks Not on file 07/01/2 019 Frequency of Binge Drinking Never 07/2018 Overall Financial Resource Strain (CARDIA) Answe r Date Recorded Difficulty of Paying Living Expenses Not hard at all 01/17/2019 [facility] [place] of Occupat ional Health - Occupational Stress [...] PM CDT documented as of this encounter Progress Notes * Denia Maher M.S.W., L.C.S.W. - 01/28/2019 9:09 AM EDT SUBJECTIVE Patient completed Distress Screen OBJECTIVE No psychosocial needs/concerns identified at this time ASSESSMENT / PLAN Social Work will continue to be available as needed Odalis Desai, L.C.S.W. 01/28/2019 documented in this encounter Plan of Treatment Not on file documented as of this encounter Visit Diagnoses Not on filedocumented in this encounter
--- OUTSIDE RECORDS SUMMARY | 2024-07-17 10:36 | XMS_ITS | Encounter Summary ---
Author Organization [facility] Address [address] [place] [address] Care Team Providers Care Interactive Account Manager Name Role Phone Unavailable Primary Care Provider Unavailabl e Reason for Visit * Reason Comments COVID Inquiry Encounter Details Date Type Department Care Team (Late st Contact Info) Description 08/06/2020 Clinical Communication Department of Medical and Surgical Gynecology in [place], [place] [address] [place] [address] Inna Turner, P.A.-C. [address] [place] [address] COVID Inquiry Social History Tobacco [...] and Family Not on file 09/17/2019 Attends Jew Services Not on file Active Member of [...] Living Expenses Not hard at all 01/17/2019 [facility] of Occupat ional [facility] - Occupational Stress Questionnaire Answer Date [...] Dental Answer Date Recorded Dental: Regular Dentist 12 05/12/20 20 Education Answer Date Recorded What is [...] encounter Miscellaneous Notes * Telephone Encounter - Linda Hensley I. - 08/06/2020 10:28 AM EST What is the purpose of the call?: [...] sending patient for testing in [facility] or [facility], route encounter to the correct testing pool. CAL BILLING CLERK documented in this encounter Plan of Treatment Not on file documented as of this encounter Visit Diagnoses Not on filedocumented in this encounter
--- OUTSIDE RECORDS SUMMARY | 2024-07-17 10:36 | XMS_ITS | Encounter Summary ---
Author Organization [facility] Address [address] [place] [address] Care Team Providers Care Dairy Cattle Farm Manager Name Role Phone Unavailable Primary Care Provider Unavailabl e Reason for Referral * Outpatient (Routine) - Closed Specialty Diagnoses / Procedures Referred By Ryley pantoja Referred To Contact Obstetrics and Gynecology Diagnoses Malignant Neoplasm Of Uterus (HCC) Inna Turner, P.A.-C. [address] [place] [address] Phone: tel: fax: [facility] Referral ID Status Reason Start Date Expiration Date Visits Re quested Visits Authorized [id number] Closed 05/17/2019 05/16/2020 1 1 Scheduling Instructions Madelyn Keith on Dr. Gutierrez Reason for Visit * Reason Comments Return Visit Cancer surveillance * Outpatient (Routine) - Closed Specialty Diagnoses / Procedures Referred By Ryley pantoja Referred To Contact Obstetrics and Gynecology Inna Turner, P.A.-C. [address] [place] [address] Phone: tel: fax: [facility] Referral ID Status Reason Start Date Expiration Date Visits Re quested Visits Authorized [id number] Closed 01/21/2019 01/21/2020 1 1 Encounter Details Date Type Department Care Team (Late st Contact Info) Description 05/17/2019 2:30 PM EDT Office Visit Department of Medical and Surgical Gynecology in [place], [place] [address] [place] [address] Inna Turner P.ARebeca-Theron. [address] [place] [address] Malignant Neoplasm Of Uterus (HCC) (Primary Dx) Social History Tobacco Use [...] than three times a week 01/17/2019 Attends [employer] Services Patient declined 07/2018 Active Member of [...] Living Expenses Not hard at all 01/17/2019 [facility] of Occupat ional Health - Occupational Stress [...] Sign Reading Time Taken Comments Blood Pressure 159/77 05/17/2019 2:16 PM EDT Pulse 70 05/17/2019 2:16 PM EDT Temperature 36.6 ??C (97.9 ??F) 05/17/2019 2:16 PM ED T Respiratory Rate - - Oxygen Saturation - - Inhaled Oxygen Concentration - - Weight 87 kg (191 lb 12.8 oz) 05/17/2019 2:16 PM EDT Height - - Body Mass Index 33.15 12/21/2018 11:55 AM EDT documented in this encounter Progress Notes * Inna Turner, P.A.-C. - 05/17/2019 2:30 PM EDT ??CHIEF COMPLAINT Chief Complaint Patient presents with ??? Return Visit Cancer surveillance SUPERVISING PHYSICIAN Rogelio Zurita III, MD SUBJECTIVE HISTORY OF PRESENT ILLNESS Claudia Desai is a 69 y.o. female who presents with a chief complaint of Chief Complaint Patient presents with ??? Return Visit Cancer surveillance She was last seen by myself on 01/21/2019 for postoperative visit. Patient is status post hysterectomy with bilateral salpingo oophorectomy and sentinel lymph node dissection on December 21, 2018 for biopsy-proven grade 1 endometrial adenocarcinoma. Final pathology patient was stage IB, grade 1 endometrioid carcinoma with tumor invading 1/2 from more of the myometrium. Therefore she underwent adjuvant vaginal cuff HDR brachytherapy from January 24, 2019 through January 28, 2019. She presents today with her for her [...] has recommended a repeat CT in 1 year. She otherwise voices no shortness of breath or chest pain. She is sexually active and denies any pain or bleeding with intercourse. Her only concern is some urinary urgency. She did have this prior to surgery and tried anti muscularinic without any improvement in symptoms. She stopped this due to constipation difficulties. HISTORY REVIEW The following portions of the patient's history were reviewed and updated as appropriate: allergies, current medications, family history, medical history, social history, surgical history and problemlist. REVIEW OF SYSTEMS Negative except as per HPI OBJECTIVE PHYSICAL EXAM Wood Gang Sawyer present for examination Rekha Ross RN VITALS: Vitals: 05/17/19 1416 BP: 159/77 Pulse: 70 Temp: 36.6 ??C Body mass index is 33.15 kg/m??. GENERAL: No acute distress; oriented to time, place and person HEAD: Normocephalic PULMONARY: Regular and non-labored respirations PELVIC: EGBUS normal female. Lesion no. Urethral normal. Speculum exam reveals pink vaginal mucosa.Rugation absent. Cervix absent. Vaginal mucosa smooth without obvious lesion. Atrophic changes present. Post radiation changes present. Bimanual exam reveals palpably normal bladder and urethra, nontender. No mass. Uterus and ovaries surgically absent. No appreciable mass. Rectovaginal exam withoutmass. ASSESSMENT / PLAN ASSESSMENT: Diagnosis Plan 1. Malignant Neoplasm Of Uterus (HCC) Obstetrics and Gynecology office visit (clinic) PLAN: 1. Patient is doing well. Clinically MILO status post surgery and vaginal bracytherapy. Recommend continuation of q. 4 month return visit for surveillance the first 3 years, then annually 2 years. She is advised to monitor for signs and symptoms of recurrent disease, to include: vaginal bleeding, new pelvic or abdominal pain or bloating, new swelling of a leg, any pain that is persistent or progressive, new onset cough or shortness of breath, change in bladder or bowel habits. She was recommended to continue healthy diet and exercise. Reviewed weight loss benefits for general and cardiovascular health. 2. Discussed options for managing OAB symptoms, and the option of a trial with Myrbetriq. At this time she has declined. She was given a list of classic bladder irritants as well as bladder retraining information for urge suppression for lifestyle in behavioral modification. She will contact me if she would like to consider medication or further therapies. 3. CT scan performed December 07, 2018 with outside facility pre surgery revealed a 6 mm noncalcified nodule within the left lung. It was recommended based on Fleischner guidelines that patient have repeat imaging of the chest in 12 months. She reports her PCP has coordinated this for her. I have discussed my findings in detail with the patient along with the alternatives and benefits oftreatment. I have answered all questions. PATIENT COUNSELING: The patient was interactive, attentive and verbalized understanding of the explanation of the condition and possible treatment options. Yes. I personally spent over half of a total 25 minutes in counseling and discussion with the patient and coordination of care as described above. Inna Turner P.A.-C. documented in this encounter Plan of Treatment Scheduled Referrals Name Type Priority Associated Diagnoses Order Schedule Obstetrics and Gynecology office visit (clinic) Outpatient Referral Routine Malignant Neoplasm Of Uterus (HCC) Expected: 09/17/2019 (Approximate), Expires: 05/17/2022 documented as of this encounter Visit Diagnoses Diagnosis Malignant Neoplasm Of Uterus (HCC)- Primary documented in this encounter
--- OUTSIDE RECORDS SUMMARY | 2024-07-17 10:36 | XMS_ITS | Encounter Summary ---
Author Organization [facility] Address [address] [place] [address] Care Team Providers Care Pan Washer Hand Name Role Phone Unavailable Primary Care Provider Unavailabl e Encounter Details Date Type Department Care Team (Late st Contact Info) Description 02/24/2019 Documentation Department of Radiation Oncology in [place], [place] [address] [place] [address] Tania Townsend M.D. Social History Tobacco Use Types Packs/Day Years [...] than three times a week 01/17/2019 Attends [employer] Services Patient declined 07/2018 Active Member of [...] Living Expenses Not hard at all 01/17/2019 [facility] [place] of Occupat ional Health - Occupational Stress [...] as of this encounter Progress Notes * Tania Townsend M.D. - 02/24/2019 4:31 PM EDT Radiation Oncology Treatment Summary Diagnosis Primary C54.1 - Malignant neoplasm of endometrium. Clinical Summary Ms. 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 Gutierrez on 12/21/2018 (2 cm, 80% myometrial invasion, no LVSI, no DANIEL/cervical involvement, negative margins, 0/4 LNs), now receiving adjuvant vaginal cuff HDR brachytherapy.? Treatment Dates: 01/24/2019 - 01/28/2019 Treatment Plans: Plan ID Rx Dose (cGy) Fraction Vag Cyl HDR 2,100 3 / 3 Vag Cuff - Planned Dose 2,100cGy - Actual Dose 2,100cGy Course and Condition at Conclusion of Treatment Patient tolerated treatment well with No acute complication. Final Disposition Patient will follow-up with us and [facility] in 4 months. documented in this encounter Plan of Treatment Not on file documented as of this encounter Visit Diagnoses Not on filedocumented in this encounter
--- OUTSIDE RECORDS SUMMARY | 2024-07-17 10:36 | XMS_ITS | Encounter Summary ---
Author Organization [facility] Address [address] [place] [address] Care Team Providers Care Compound Coating Machine Offbearer Name Role Phone Unavailable Primary Care Provider Unavailabl e Reason for Visit * Reason Comments OTV Encounter Details Date Type Department Care Team (Late st Contact Info) Description 01/28/2019 8:58 AM EDT - 01/28/2019 9:44 AM EDT Hospital Encounter Department of Radiation Oncology in [place], [place] [address] [place] [address] Tania Townsend M.D. Malignant Neoplasm Of Uterus [...] than three times a week 01/17/2019 Attends [employer] Services Patient declined 07/2018 Active Member of [...] Living Expenses Not hard at all 01/17/2019 [facility] of Occupat ional Health - Occupational [...] Sign Reading Time Taken Comments Blood Pressure 127/80 01/28/2019 8:59 AM EDT Pulse 78 01/28/2019 8:59 AM EDT Temperature 36.7 ??C (98.1 ??F) 01/28/2019 8:59 AM ED T Respiratory Rate - - Oxygen Saturation - - Inhaled Oxygen Concentration - - Weight 88.7 kg (195 lb 8.8 oz) 01/28/2019 8:59 A M EDT Height - - Body Mass Index 33.8 12/21/2018 11:55 AM EDT documented in this encounter Medications [...] Progress Notes * Tania Townsend M.D. - 01/28/2019 8:59 AM EDT STATUS CHECK NOTE DIAGNOSIS Ms. 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 Gutierrez on 12/21/2018 (2 cm, 80% myometrial invasion, no LVSI, no DANIEL/cervical involvement, negative margins, 0/4 LNs), now receiving adjuvantvaginal cuff HDR brachytherapy. DOSE Course Summary 01/26/2019 Plan ID Vag Cyl HDR First treatment 01/24/2019 14:43 EDT Last treatment 01/26/2019 09:20 EDT Fractions treated to date 2 Planned total fractions 3 Dosage given to date cGy 1400 Planned dose in cGy 2100 SUBJECTIVE No new symptoms CTCAE Toxicity from Today (Most Recent Value) Some values may be hidden. Unless noted otherwise, only the newest values recorded on each date aredisplayed. Also, latest columns from 01/27/2019 - 01/28/2019 are shown. Toxicity No data to display. PHYSICAL EXAM Vitals: 01/28/19 0859 BP: 127/80 Patient Position: Sitting Pulse: 78 Temp: 36.7 ??C Weight: 88.7 kg TempSrc: Tympanic ECOG Score-- 0 PAIN: 0/10 GENERAL: This is a well-nourished, well-developed female in NAD. Alert and oriented. IMAGING AND DOSIMETRY Reviewed and satisfactory IMPRESSION AND PLAN Patient is tolerating treatment. Continue with radiation therapy as planned. documented in this encounter Plan of Treatment Scheduled Orders Name Type Priority Associated Diagnoses Orde r Schedule Management Visit Radiation Oncology Routine Malignant Neoplasm Of Uterus Endometrial (HCC) Once for 1 Occurrences starting 01/28/2019 until 01/28/2019 documented as of this encounter Visit Diagnoses Diagnosis Malignant Neoplasm Of Uterus Endometrial (HCC) documented in this encounter
--- OUTSIDE RECORDS SUMMARY | 2024-07-17 10:36 | XMS_ITS | Encounter Summary ---
Author Organization [facility] Address [address] [place] [address] Care Team Providers Care Sort Operations Supervisor Name Role Phone Unavailable Primary Care Provider Unavailabl e Reason for Visit * Reason Comments Appointment Encounter Details Date Type Department Care Team (Late st Contact Info) Description 03/02/2020 Clinical Communication Department of Medical and Surgical Gynecology in [place], [place] [address] [place] [address] Inna Turner, P.A.-C. [address] [place] [address] Appointment Social History Tobacco Use Types Packs/Day Years [...] and Family Not on file 09/17/2019 Attends [employer] Not on file Active Member of [...] Living Expenses Not hard at all 01/17/2019 [facility] of Occupat ional Health - Occupational Stress [...] Answer Date Recorded Dental: Regular Dentist 11 02/29/20 20 Education Answer Date Recorded What is [...] encounter Miscellaneous Notes * Telephone Encounter - Inna Turner P.A.-C. - 03/02/2020 5:24 PM EDT OK to cancel CXR if she had a recent Chest CT - just have her bring disc. Thank you! Inna * Telephone Encounter - Linda Hensley I. - 03/02/2020 4:16 PM EDT Good Afternoon, Patient will see Inna for her 4 months follow up appointment on May 04. Patient has a pending order to schedule a Chest xray but she said that she has done a CT chest scana month ago (outside [facility] ) and she can bring the CD. Could you please let us know if patient still need to schedule a Chest xray? Linda Diallo. documented in this encounter Plan of Treatment Not on file documented as of this encounter Visit Diagnoses Not on filedocumented in this encounter
--- OUTSIDE RECORDS SUMMARY | 2024-07-17 10:36 | XMS_ITS | Encounter Summary ---
Author Organization [facility] Address [address] [place] [address] Care Team Providers Care Expeller Operator Name Role Phone Unavailable Primary Care Provider Unavailabl e Reason for Referral * Outpatient (Routine) - Closed Specialty Diagnoses / Procedures Referred By Ryley pantoja Referred To Contact Radiation Oncology Diagnoses Malignant Neoplasm Of Uterus Endometrial (HCC) Tania Townsend M.D. [facility] Referral ID Status Reason Start Date Expiration Date Visits Re quested Visits Authorized [id number] Closed 09/23/2019 09/22/2020 1 1 Scheduling Instructions Same day as RTNV in ADVERTISING CLERK * Outpatient (Routine) - Closed Specialty Diagnoses / Procedures Referred By Ryley pantoja Referred To Contact Radiation Oncology Diagnoses Malignant Neoplasm Of Uterus Endometrial (HCC) Tania Townsend M.D. [facility] Referral ID Status Reason Start Date Expiration Date Visits Re quested Visits Authorized [id number] Closed 01/28/2019 01/28/2020 1 1 Scheduling Instructions Same day as RTNV Yue in ADVERTISING CLERK Reason for Visit * Reason Comments Return Visit * Outpatient (Routine) - Closed Specialty Diagnoses / Procedures Referred By Ryley pantoja Referred To Contact Radiation Oncology Diagnoses Malignant Neoplasm Of Uterus Endometrial (HCC) Tania Townsend M.D. [facility] Referral ID Status Reason Start Date Expiration Date Visits Re quested Visits Authorized [id number] Closed 01/28/2019 01/28/2020 1 1 Encounter Details Date Type Department Care Team (Late st Contact Info) Description 09/23/2019 8:46 AM EST - 09/23/2019 9:26 AM EST Hospital Encounter Department of Radiation Oncology in [place], [place] [address] [place] [address] aTnia Townsend M.D. Malignant Neoplasm Of Uterus Endometrial [...] Living Expenses Not hard at all 01/17/2019 [facility] of Occupat ional Health - Occupational Stress [...] Sign Reading Time Taken Comments Blood Pressure 144/77 09/23/2019 8:53 AM EST Pulse 87 09/23/2019 8:53 AM EST Temperature - - Respiratory Rate - - Oxygen Saturation 99% 09/23/2019 8:53 AM EST Inhaled Oxygen Concentration - - Weight - - Height - - Body Mass Index - - documented in this encounter Medications at Time [...] Progress Notes * Tania Townsend M.D. - 09/23/2019 9:30 AM EST RADIATION ONCOLOGY SUBSEQUENT VISIT HISTORY OF PRESENT ILLNESS: 07/2018, began having [...] acute complications. Pelvic exams to date through ADVERTISING CLERK have been negative. She returns today for routine follow-up evaluation. Overall, the patient feels well. She denies any new urinary or bowel symptoms. No vaginal dischargeor bleeding. No blood in the urine or stool. She does note that she has increased bowel movements from 1 bowel movement per day to 2 formed bowel movements per day, but she has also increased the fiber in her diet. No diarrhea. No nausea/vomiting. PHYSICAL EXAM: Vitals: 09/23/19 0853 BP: 144/77 BP Location: Left arm Patient Position: Sitting Pulse: 87 ECOG performance: 0 GENERAL: Well-nourished, well-developed female in no acute distress. Alert and oriented. PELVIC: Deferred since she just had a negative exam by ADVERTISING CLERK last week. EXTREMITIES: No lower extremity edema. LABS: Reviewed in chart IMAGING: As noted above. IMPRESSION: Ms. Desai is a 69 y.o. 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 Gutierrez on 12/21/2018 (2 cm, 80% myometrial invasion, no LVSI, no DANIEL/cervical involvement, negative margins, 0/4 LNs), now receiving adjuvantvaginal cuff HDR brachytherapy. PLAN: Follow-up in Radiation Oncology in 1 year. She will continue pelvic exams through ADVERTISING CLERK as described in their notes. Should she have any questions or concerns, she was encouraged to contact us. TOTAL CONSULTATION TIME: 15 minutes with greater than 50% time spent in [id number] counseling. This note was dictated using a computerized dictation system. Typographical errors may be present. ULATING PROCESS INSPECTOR documented in this encounter Plan of Treatment Scheduled Referrals Name Type Priority Associated Diagnoses Orde r Schedule Radiation Oncology office visit (clinic) Outpatient Referral Routine Malignant Neoplasm Of Uterus Endometrial (HCC) Once for 1 Occurrences starting 09/23/2019 until 09/23/2019 Radiation Oncology office visit (clinic) Outpatient Referral Routine Malignant Neoplasm Of Uterus Endometrial (HCC) Expected: 09/22/2020 (Approximate), Expires: 09/22/2022 documented as of this encounter Visit Diagnoses Diagnosis Malignant Neoplasm Of Uterus Endometrial (HCC) documented in this encounter
--- OUTSIDE RECORDS SUMMARY | 2024-07-17 10:37 | XMS_ITS | Encounter Summary ---
Author Organization [facility] Address [address] [place] [address] Care Team Providers Care Improvement Rn Name Role Phone Unavailable Primary Care Provider Unavailabl e Encounter Details Date Type Department Care Team (Late st Contact Info) Description 01/26/2019 7:34 AM EDT - 01/26/2019 10:37 AM EDT Hospital Encounter Department of Radiation Oncology in [place], [place] [address] [place] [id number] Tania Townsend M.D. Vaginitis Yeast (Primary Dx); Malignant Neoplasm Of Uterus Endometrial (HCC) Social [...] than three times a week 01/17/2019 Attends [employer] Services Patient declined 07/2018 Active Member of [...] Living Expenses Not hard at all 01/17/2019 [facility] of Occupat ional Health - Occupational Stress [...] THE SKIN Q 72 H 1 11/19/2018 fluconazole (DIFLUCAN) 150 mg tabletIndication s:Vaginitis Yeast Take 1 tablet (150 mg total) by mouth daily for 1 day. 1 tablet 01/26/2019 9 documented as of this encounter Procedure Notes * Tania Townsend M.D. - 01/26/2019 8:27 AM EDTAssociated Order(s): Brachytherapy HDR Post-Procedure Diagnose(s): Malignant Neoplasm Of Uterus Endometrial (HCC) Intracavitary HDR Vaginal Cylinder Treatment Procedure DIAGNOSIS Ms. 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 Gutierrez on 12/21/2018 (2 cm, 80% myometrial invasion, no LVSI, no DANIEL/cervical involvement, negative margins, 0/4 LNs), now receiving adjuvant vaginal cuff HDR brachytherapy. DOSE 1400 cGy/2100 cGy. Treatment # 2/3. PROCEDURE The patient was brought to the [...] department in good condition. Brachytherapy HDR Date/Time: 01/26/2019 8:27 AM Performed by: Tania Townsend M.D. Authorized by: Tania Townsend M.D. documented in this encounter Plan of Treatment Not on file documented as of this encounter Procedures Procedure Name Priority Date/Time Associated Diagnosis Comments BRACHYTHERAPY HDR Routine 01/26/2019 8:2 7 AM EDT Malignant Neoplasm Of Uterus Endometrial (HCC) documented in this encounter Results * Brachytherapy HDR (01/26/2019 8:27 AM EDT) Narrative YOSHI DOBSON - 01/26/2019 8:27 AM EDT Tania Townsend M.D. ? 01/26/2019 10:36 AM Brachytherapy HDR Date/Time: 01/26/2019 8:27 AM Performed by: Tania Townsend M.D. Authorized by: Tania Towsnend M.D. Tania Townsend M.D. RADIATION ONCOLOGY ORDERAB LES Final Result YOSHI DOBSON na documented in this encounter Visit Diagnoses Diagnosis Vaginitis Yeast- Primary Malignant Neoplasm Of Uterus Endometrial (HCC) documented in this encounter
--- OUTSIDE RECORDS SUMMARY | 2024-07-17 10:37 | XMS_ITS | Encounter Summary ---
Author Organization [facility] Address [address] [place] [address] Care Team Providers Care Embedded Firmware Developer Name Role Phone Unavailable Primary Care Provider Unavailabl e Encounter Details Date Type Department Care Team (Late st Contact Info) Description 01/21/2019 1:26 PM EDT - 01/21/2019 11:59 PM EDT Hospital Encounter Department of Radiation Oncology in [place], [place] [address] [place] [address] Tania Townsend M.D. Discharge Disposition: Home or Self Care Social [...] and Family Not on file 09/17/2019 Attends [employer] Services Not on file Active Member of [...] Living Expenses Not hard at all 01/17/2019 [facility] of Occupat ional Health - Occupational Stress [...]
--- OUTSIDE RECORDS SUMMARY | 2024-07-17 10:37 | XMS_ITS | Encounter Summary ---
Author Organization [facility] Address [address] [place] [address] Care Team Providers Care Pediatric Nurse Practitioner Name Role Phone Unavailable Primary Care Provider Unavailabl e Encounter Details Date Type Department Care Team (Late st Contact Info) Description 01/21/2019 1:26 PM EDT - 01/21/2019 2:52 PM EDT Hospital Encounter Department of Radiation Oncology in [place], [place] [address] [place] [address] Tania Townsend M.D. Malignant Neoplasm Of Uterus [...] than three times a week 01/17/2019 Attends Spiritism Services Patient declined 07/2018 Active Member of [...] Living Expenses Not hard at all 01/17/2019 [facility] [place] of Occupat ional Health - Occupational Stress [...] Procedure Notes * Tania Townsend M.D. - 01/21/2019 2:48 PM EDTAssociated Order(s): Brachytherapy Sim Pre-Procedure Diagnose(s): Malignant Neoplasm Of Uterus Endometrial (HCC) Post-Procedure Diagnose(s): Malignant Neoplasm Of Uterus Endometrial (HCC) Intracavitary HDR Vaginal Cylinder Simulation Procedure Brachytherapy Sim Date/Time: 01/21/2019 2:48 PM Performed by: Tania Townsend M.D. Authorized by: Tania Townsend M.D. DIAGNOSIS Ms. 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 Gutierrez on 12/21/2018 (2 cm, 80% myometrial invasion, no LVSI, no DANIEL/cervical involvement, negative margins, 0/4 LNs), now receiving adjuvant vaginal cuff HDR brachytherapy. PROCEDURE The patient was brought to the treatment room and placed in the supine position on the treatment table. A 3.5 cm diameter and 10 cm length vaginal cylinder was dipped in 2% Lidocaine Hydrochloride gel and KY gel and inserted into the vaginal cuff. An applicator clamp and base plate were then used to secure the device within the vaginal cuff. A CT scan was performed and will be used for treatment planning purposes. The patient tolerated the procedure without difficulty and she left the department in good condition. CONSENT: Discussed the risks, benefits, alternatives, and the necessity of other members of the healthcare team participating in the procedure. All questions answered and consent given. documented in this encounter Plan of Treatment Not on file documented as of this encounter Procedures Procedure Name Priority Date/Time Associated Diagnosis Comments BRACHYTHERAPY SIM Routine 01/21/2019 2:4 8 PM EDT Malignant Neoplasm Of Uterus Endometrial (HCC) documented in this encounter Results * Brachytherapy Sim (01/21/2019 2:48 PM EDT) Narrative YOSHI DOBSON - 01/21/2019 2:48 PM EDT Tania Townsend M.D. ? 01/21/2019 ??2:49 PM Brachytherapy Sim Date/Time: 01/21/2019 2:48 PM Performed by: Tania Townsend M.D. Authorized by: Tania Townsend M.D. Tania Townsend M.D. RADIATION ONCOLOGY ORDERAB LES Final Result YOSHI DOBSON na documented in this encounter Visit Diagnoses Diagnosis Malignant Neoplasm Of Uterus Endometrial (HCC) documented in this encounter
--- OUTSIDE RECORDS SUMMARY | 2024-07-17 10:37 | XMS_ITS | Encounter Summary ---
Author Organization [facility] Address [address] [place] [address] Care Team Providers Care Engine Lathe Set Up Operator Tool Name Role Phone Unavailable Primary Care Provider Unavailabl e Encounter Details Date Type Department Care Team (Late st Contact Info) Description 01/24/2019 12:10 PM EDT - 01/24/2019 1:22 PM EDT Hospital Encounter Department of Radiation Oncology in [place], [place] [address] [place] [address] Tania Townsend M.D. Malignant Neoplasm Of Uterus [...] than three times a week 01/17/2019 Attends Tenriism Services Patient declined 07/2018 Active Member of [...] Living Expenses Not hard at all 01/17/2019 [facility] [employer] of Occupat ional Health - Occupational Stress [...] Procedure Notes * Tania Townsend M.D. - 01/24/2019 1:21 PM EDTAssociated Order(s): Brachytherapy HDR Pre-Procedure Diagnose(s): Malignant Neoplasm Of Uterus Endometrial (HCC) Post-Procedure Diagnose(s): Malignant Neoplasm Of Uterus Endometrial (HCC) Intracavitary HDR Vaginal Cylinder Treatment Procedure DIAGNOSIS Ms. 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 Gutierrez on 12/21/2018 (2 cm, 80% myometrial invasion, no LVSI, no DANIEL/cervical involvement, negative margins, 0/4 LNs), now receiving adjuvant vaginal cuff HDR brachytherapy. DOSE 700 cGy/2100 cGy. Treatment # 1/3. PROCEDURE The patient was brought to the [...] department in good condition. Brachytherapy HDR Date/Time: 01/24/2019 1:21 PM Performed by: Tania Townsend M.D. Authorized by: Tania Townsend M.D. documented in this encounter Plan of Treatment Not on file documented as of this encounter Procedures Procedure Name Priority Date/Time Associated Diagnosis Comments BRACHYTHERAPY HDR Routine 01/24/2019 1:2 1 PM EDT Malignant Neoplasm Of Uterus Endometrial (HCC) documented in this encounter Results * Brachytherapy HDR (01/24/2019 1:21 PM EDT) Narrative YOSHI DOBSON - 01/24/2019 1:21 PM EDT Tania Townsend M.D. ? 01/24/2019 ??1:22 PM Brachytherapy HDR Date/Time: 01/24/2019 1:21 PM Performed by: Tania Townsend M.D. Authorized by: Tania Townsend M.D. us Tania Townsend M.D. RADIATION ONCOLOGY ORDERAB LES Final Result YOSHI DOBSON na documented in this encounter Visit Diagnoses Diagnosis Malignant Neoplasm Of Uterus Endometrial (HCC) documented in this encounter
--- OUTSIDE RECORDS SUMMARY | 2024-07-17 10:37 | XMS_ITS | Encounter Summary ---
Author Organization [facility] Address [address] [place] [address] Care Team Providers Care Automotive Brake Adjuster Name Role Phone Unavailable Primary Care Provider Unavailabl e Reason for Visit * Reason Comments Results Encounter Details Date Type Department Care Team (Late st Contact Info) Description 01/21/2019 Clinical Communication Department of Medical and Surgical Gynecology in [place], [place] [address] [place] [address] Inna Turner, P.A.-C. [address] [place] [address] Results Social History Tobacco Use Types Packs/Day [...] than three times a week 01/17/2019 Attends Christianity Services Patient declined 07/2018 Active Member of [...] Living Expenses Not hard at all 01/17/2019 [facility] [place] of Occupat ional Health - Occupational Stress [...] Miscellaneous Notes * Telephone Encounter - Inna Turner, P.A.-C. - 01/21/2019 11:[address] Gutierrez, Please feel out staging information for oncology treatment plan. She is scheduled with Dr. Townsend later today and set up for three vaginal brachytherapy appointments. I asked that she return to see me 3 months after completion of RT. Thanks! Inna documented in this encounter Plan of Treatment Not on file documented as of this encounter Visit Diagnoses Not on filedocumented in this encounter
--- OUTSIDE RECORDS SUMMARY | 2024-07-17 10:38 | XMS_ITS | Encounter Summary ---
Author Organization [facility] Address [address] [place] [address] Care Team Providers Care Editing Computer Publisher Name Role Phone Unavailable Primary Care Provider Unavailabl e Encounter Details Date Type Department Care Team (Late st Contact Info) Description 12/14/2018 Clinical Communication Department of Medical and Surgical Gynecology in [place], [place] [address] [place] [address] Rose Mary Gutierrez M.D. [address] [place] [address] Social History Tobacco Use Types Packs/Day Years Used Date Smoking Tobacco: Never Smokeless Tobacco: Never Alcohol Use Standard Drinks/Week Comments No 0 (1 standard drink = 0.6 oz pur e alcohol) Comments Unknown Sex and Gender Information Value Date Recorded Sex Assigned at Female 12/09/2018 1:18 PM CDT Legal Sex Female 8:44 AM CDT Gender Identity Female 12/09/2018 1:18 PM CDT Sexual Orientation Straight 12/09/2018 1: 18 PM CDT documented as of this encounter Miscellaneous Notes * Telephone Encounter - Taryn Wright RRebecaNRebeca - 12/14/2018 3:44 PM EDT Order signed. Please schedule and check in. Taryn Diallo * Telephone Encounter - Erlinda Monge - 12/14/2018 2:29 PM EDT Pathology Received by the lab. They are requesting orders. Please sign order, have pathology scheduled and checked in by RUBBER ENGRAVER desk staff. documented in this encounter Plan of Treatment Not on file documented as of this encounter Results * Pathology Review of Outside Material (11/25/2018 10:32 AM EDT) 12/17/2018 9:08 AM EDT Report electronically signed by Belinda Kowalski M.D. I verify that I have examined all relevant slides/materials for the specimen(s) and rendered or confirmed the diagnosis. 12/17/2018 9:08 AM EDT Material Received [id number]; collected 11/25/2018 Endometrium, 4 slides REFERRING FACILITY: [facility] Department of Pathology [address] [place] [id number] P: F: 12/17/2018 9:08 AM EDT Addendum 12/24/2018 - 15 unstained slides labeled [id number]. MK/amw TEST PERFORMED: Mismatch Repair Protein Immunohistochemistry Tumor Type: Endometrial adenocarcinoma Block: ??[id number] Result: Normal expression of MLH1, MSH2, MSH6, and PMS2 Interpretation: The results of the IHC analysis suggest the presence of normal DNA mismatch repair function within the tumor. Thus, the likelihood that this individual has an inherited colon cancer syndrome due to defective DNA mismatch repair (HNPCC/Coleman syndrome) is reduced but not eliminated. These results reduce but do not completely rule out the possibility of defective DNA mismatch repair within the tumor because approximately 5% of cases with defective mismatch repair do not show absence of protein expression by IHC. These results also do not exclude the possibility that this individual's tumor is due to an inherited defect in another gene not involved in DNA mismatch repair. A significant fraction of clinically defined HNPCC cases (30% or more) do not have defective DNA mismatch repair as the underlying genetic basis of their disease. Additionally, we cannot rule out the possibility that this individual or family has HNPCC/Coleman syndrome because this tumor could represent a sporadic occurrence. If there is a strong personal or family history of HNPCC/Coleman syndrome related cancers for this individual or if this individual has multiple tumors, consider microsatellite instability (MSI) testing on this tumor or a different tumor to further evaluate the possible role of defective DNA mismatch repair for this individual family. MK/clb CAUTIONS: Test results should be interpreted in context of clinical findings, family history, and other laboratory data. A genetic consultation may be of benefit. Signed by Belinda Kowalski M.D. 12/28/2018 3:06 PM 12/28/2018 3:06 PM EDT Comment:REVISED RESULTS Interpretation FINAL DIAGNOSIS [id number]; collected 11/25/2018: Endometrium: FIGO grade 1 ??(of 3) adenocarcinoma, endometrioid-type. MARIZA/darrell 12/28/2018 3:06 PM EDT Varies 11/25/2018 10:3 2 AM EDT 12/16/2018 8:48 AM EDT us Rose Mary Gutierrez M.D. LAB SURG PATH ORDERABLES Edited Result - Final [facility] [address] [place] [address], [facility] documented in this encounter Visit Diagnoses Diagnosis Malignant Neoplasm Of Uterus Endometrial (HCC)- Primary documented in this encounter
--- OUTSIDE RECORDS SUMMARY | 2024-07-17 10:38 | XMS_ITS | Encounter Summary ---
Author Organization [facility] Address [address] [place] [address] Care Team Providers Care Qa Test Analyst Name Role Phone Unavailable Primary Care Provider Unavailabl e Reason for Referral * Outpatient (Routine) - Canceled Specialty Diagnoses / Procedures Referred By Ryley pantoja Referred To Contact Obstetrics and Gynecology Diagnoses Malignant Neoplasm Of Uterus Endometrial (HCC) Jose Maria Farah M.D. [address] [place] [address] Phone: tel: fax: [facility] Referral ID Status Reason Start Date Expiration Date V isits Requested Visits Authorized [id number] Canceled 12/22/2018 12/22/2019 1 1 Scheduling Instructions 6-8 week postop evaluation Encounter Details Date Type Department Care Team (Latest Contact Info) Description 12/21/2018 10:44 AM EDT - 12/22/2018 12:09 PM EDT Hospital Encounter [facility], Eighth Floor [address] [place] [address] Rose Mary Gutierrez M.D. [address] [place] [address] Malignant Neoplasm Of Uterus Endometrial (HCC) (Primary Dx) Discharge Disposition: Home or Self Care Social History Tobacco Use Types Packs/Day Years Used Date Smoking Tobacco: Never Smokeless Tobacco: Never Alcohol Use Standard Drinks/Week Comments No 0 (1 standard drink = 0.6 oz pur e alcohol) Nutrition Answer Date Recorded Nutrition: EVOO Fat Source 13 12/19 Nutrition: Servings of Fruits/Vegetables per Day Not on file 12/19/2018 Dental Answer Date Recorded Dental: Regular Dentist 12/20/19 19 Comments No Sex and Gender Information Value Date Recorded Sex Assigned at Female 12/09/2018 1:18 PM CDT Legal Sex Female 8:44 AM CDT Gender Identity Female 12/09/2018 1:18 PM CDT Sexual Orientation Straight 12/09/2018 1: 18 PM CDT documented as of this encounter Last Filed Vital Signs Vital Sign Reading Time Taken Comments Blood Pressure 146/71 12/22/2018 7:00 AM EDT Pulse 63 12/22/2018 7:00 AM EDT Temperature 36.7 ??C (98.1 ??F) 12/22/2018 7:00 AM ED T Respiratory Rate 16 12/22/2018 7:00 AM EDT Oxygen Saturation 100% 12/22/2018 7:00 AM EDT Inhaled Oxygen Concentration - - Weight 92.5 kg (203 lb 14.8 oz) 12/22/2018 3:37 AM EDT Height 162 cm (5' 3.78 ) 12/21/2018 11: 55 AM EDT Body Mass Index 35.25 12/21/2018 11:55 AM EDT documented in this [...] THE SKIN Q 72 H 1 11/19/2018 ondansetron (ZOFRAN) 4 mg tablet Take 1 tablet (4 mg total) by mouth every 8 (eight) hours as needed for nausea for up to 5 days. 15 tablet 12/21/2018 9 oxyCODONE (ROXICODONE) 5 mg immediate release tabletIndication s:Acute Pain Exception Take 1 tablet (5 mg total) by mouth every 6 (six) hours as needed for pain for up to 3 days Indication: Acute Pain Exception. Acute pain exception. EFORCSE verified. 12 tablet 12/21/2018 9 documented as of this encounter Progress Notes * Ang Hilliard M.D. - 12/22/2018 7:26 AM EDT GYNECOLOGY INPATIENT PROGRESS NOTE SUBJECTIVE Ms. Claudia Desai is a 68 y.o. female, s/p RA-TLH/BSO/sentinel lymph node's on 12/21 with Rose Mary Gutierrez M.D. Jijon, Alfredo J, M.D.. Events overnight: pt states she is did ok overnight, she did not have any issues or complaints overnight. She was able to rest comfortably without any issues. Diet: pt has been able to tolerate clears. Nausea: no Vomiting: no Pain controlled: yes. Current regimen: Oral and IV dilaudid Ambulating: yes Bey: voiding No SOB, chest discomfort or fever. CURRENT INPATIENT MEDICATIONS: acetaminophen 1,000 mg oral Q6H atenolol 25 mg oral Daily famotidine 20 mg intravenous BID heparin (porcine) 5,000 Units subcutaneous Q8H MIKE magnesium hydroxide 30 mL oral BID sennosides-docusate sodium 1 tablet oral BID traMADol 100 mg oral BID ALPRAZolam ??? HYDROmorphone ??? labetalol ??? naloxone ??? ondansetron ??? oxyCODONE OR oxyCODONE ??? promethazine OBJECTIVE BP 146/71 (BP Location: Left arm;Upper, Patient Position: Semi-recumbent) Pulse 63 Temp 36.7 ??C (Oral) Resp 16 Ht 162 cm Wt 92.5 kg SpO2 100% ? No BMI 35.25 kg/m?? General: Alert & Orientated x3, NAD Respiratory: No distress. Chest rise is symmetric with no accessory muscle use. CTAB Abdomen: Soft, non-tender, normal bowel sounds; no bruits, organomegaly or masses.. Surgical incision(s) healing normally with edges approximated, clean, dry, without evidence of exudate or erythema Extremities: no cyanosis, clubbing, or edema. SCDs in place Vulva/Perineum: no active vaginal bleeding or vulvar edema I/O 12/20 0701 - 12/21 0700 / 07 - 12/22 0700 / 07 - 12/23 0700 P.O. 660 Maintenance IV 1744.7 Total Intake(mL/kg) 2404.7 (26) Urine (mL/kg/hr) 1375 Blood 25 Total Output 1400 Net +1004.7 Recent Labs 12/22/18 0550 HGB 12.9 HCT 38.7 WBC 15.6 H PLT 278 NA 136 K 4.8 CL 104 BUN 10 CREATININE 0.60 CALCIUM 9.4 ASSESSMENT AND PLAN: Ms. Claudia Desai is a 68 y.o. female, s/p RA-TLH/BSO/sentinel lymph node's on 12/21 with Rose Mary Gutierrez M.D. Jijon, Alfredo J, M.D.. 1. Post-operative day 1: meeting postoperative milestones. - Tolerating clears diet, ambulating, voiding, and pain controlled. Pending to tolerate regular diet. - Labs reviewed and within normal limits. 2. Hematology: EBL 25cc; no evidence of acute blood anemia. 3. Cardiovascular: no acute issues - hx of HTN, home meds restarted 4. Respiratory: wean O2 as tolerated and continue aggressive IS 5. Gastrointestinal: tolerating clears, advancing to regular this AM. No nausea or vomiting. GI prophylaxis ordered. 6. Genitourinary: voiding without issues, adequate UOP 7. Neurology: pain controlled with IV/PO pain meds 8. DVT prophylaxis: SCDs in place, heparin 5000u SQ TID DISPOSITION: Discharge to: home anticipated for today 1. Discharge medications printed 2. Restrictions and limitations reviewed, questions addressed. Written instructions will also be provided. 3. Post-operative followup requested. After pt tolerates breakfast (regular diet) and Dr. Gutierrez evaluates pt, she can d/c home and follow up as an outpatient. All questions answered. Signed by: Ang Hilliard M.D. 12/22/2018 7:26 AM Cosigned by Rose Mary Gutierrez M.D. at 12/22/2018 5:09 PM EDT Associated attestation - Rose Mary Gutierrez M.D. - 12/22/2018 4:09 PM CDT I interviewed and examined the patient, I agree with the note as above. Rose Mary Gutierrez MD, Departmentof Gynecologic Oncology and Surgery. documented in this encounter H&P Notes * Rose Mary Gutierrez M.D. - 12/21/2018 1:00 PM EDT Interval History and Physical - H&P reviewed. The patient was examined and there are no significant changes to the H&P. Source Note - Radha Graves APRN, M.S.N. - 12/16/2018 8:00 AM EDT Preoperative Medical Evaluation Date: 12/21/2018 Surgery: Robotic-Assisted Hysterectomy With Bilateral Salpingo Oophorectomy, [place] Lymph Node Dissection Surgeon: Rose Mary Gutierrez M.D. Claudia Desai is a 68 y.o. female who presents for cardiopulmonary and preoperative issue optimization. 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 Past Medical History: Diagnosis Date ??? Anxiety Generalized Disorder ??? Gastroesophageal Reflux Disease NOS ??? Hyperlipidemia ??? Hypertension NOS ??? Malignant Neoplasm Of Uterus (HCC) november 2018 ??? Malignant Neoplasm Of Uterus Endometrial (HCC) 12/16/2018 Current Outpatient Prescriptions Medication Sig Note ??? ALPRAZolam (XANAX) 0.5 mg tablet Take 0.5 mg by mouth at bedtime as needed for anxiety. ??? aspirin [address] tablet Take 81 mg by mouth daily. 12/15/2018: Last dose: 12/12/2018 ??? atenolol (TENORMIN) 25 mg tablet Take 25 mg by mouth daily. ??? atorvastatin (LIPITOR) 20 mg tablet Take 20 mg by mouth daily. ??? azelastine (ASTELIN) 137 mcg/spray (0.1 %) nasal spray Administer 1 spray into each nostril 2 (two) times a day. Use in each nostril as directed Not using 12/15/18 ??? calcium carbonate-vitamin D3 1,500 mg (600 mg calcium)-200 unit per tablet Take 1 tablet by mouth daily with breakfast. 12/15/2018: On hold ??? lansoprazole (PREVACID) [address] capsule Take 30 mg by mouth every morning before breakfast. ??? metroNIDAZOLE (ROSADAN) 0.75 % gel APPLY TO FACE BID FOR 1 MONTH 12/15/2018: Prn ??? TRANSDERM-SCOP 1 mg over 3 days CYNDY 1 PA EXT TO THE SKIN Q 72 H 12/15/2018: For cruises No current facility-administered medications for this visit. No Known Allergies Past Surgical History: Procedure Laterality Date ??? DILATION AND CURETTAGE OF UTERUS ??? ENDOMETRIAL BIOPSY ??? TONSILLECTOMY Social History Social History ??? Marital status: Spouse name: N/A ??? Number of children: N/A ??? Years of education: N/A Occupational History ??? Not on file. Social History Main Topics ??? Smoking status: Never Smoker ??? Smokeless tobacco: Never Used ??? Alcohol use No ??? Drug use: No ??? Sexual activity: Yes Partners: Male control/ protection: None Other Topics Concern ??? Not on file Social History Narrative ??? No narrative on file Family History Problem Relation Age of Onset ??? Diabetes Father ??? Hypertension Father ??? Coronary artery disease Father ??? Hyperlipidemia Father ??? Transient ischemic attack Father Gastrointestinal: Positive for heartburn. Genitourinary: Positive for abnormal vaginal bleeding and frequent urination. Psychiatric/Behavioral: Positive for feeling nervous, anxious, or on edge in past two weeks. All other systems reviewed and are negative. The following systems were negative: Constitutional, Skin, Eyes, ENT, CV, Respiratory, Hematologic,Musculoskeletal, Neuro Anesthesia Complications: Denies patient has never had general anesthesia before. Of note she gets severe motion sickness please premedicate for postop nausea vomiting. PREOPERATIVE QUESTIONS Snoring/REGINA: Reports, Comments: snores Recent Cardiac Testing within last 3 years: Reports, Comments: stress/echo- WILFREDO SENT Anticoagulation: Denies Pacemaker: Denies AICD: Denies Anti-platelet therapy: Reports, Comments: Aspirin 81 mg daily last dose: 12/12/2018 PHYSICAL EXAM Temperature: [36.5 ??C] 36.5 ??C Blood Pressure: (137)/(66) 137/66 SpO2: [99 %] 99 % Height: [162 cm] 162 cm Weight: [89.3 kg] 89.3 kg BSA (Calculated - sq m): [2 sq meters] 2 sq meters BMI (Calculated): [34 kg/m??] 34 kg/m?? Pulse Rate: [84] 84 Mallampati Score: II Constitutional: She is oriented to person, place, and time. She appears well- developed and well-nourished. HENT: Head: Normocephalic and atraumatic. Eyes: EOM are normal. Pupils are equal, round, and reactive to light. Neck: Normal range of motion. Neck supple. Cardiovascular: Normal rate, regular rhythm and normal heart sounds. Pulmonary/Chest: Effort normal and breath sounds normal. Abdominal: Soft. Bowel sounds are normal. Musculoskeletal: Normal range of motion. Neurological: She is alert and oriented to person, place, and time. Skin: Skin is warm and dry. Psychiatric: She has a normal mood and affect. Vitals reviewed. STOP BANG Total Score: 3 RESULT REVIEW Lab Results Component Value Date WBC 8.5 12/09/2018 HGB 13.6 12/09/2018 HCT 41.6 12/09/2018 MCV 90.6 12/09/2018 PLT 331 12/09/2018 Lab Results Component Value Date NA 141 12/09/2018 K 3.8 12/09/2018 CREATININE 0.76 12/09/2018 EGFR 81 12/09/2018 GLUCOSE 95 12/09/2018 Lab Results Component Value Date HGBA1C 5.4 12/09/2018 Ecg 12 Lead Result Date: 12/16/2018 Normal sinus rhythm Normal ECG No previous ECGs available Assessment / Plan Claudia Desai is a 68 y.o. female that exceeds 4 METS here for preanesthetic medical examination prior to the planned procedure as listed above. Surgery Specific Risk Classification: Intermediate Risk The following comorbidities were evaluated and assessed today:anxiety, HTN. Based on the patient's medical history, comorbidities, functional capacity, surgery specific risk classification noted above and Revised Cardiac Risk Index 0 point, class I and risk of 0.4% of major cardiac event, the patient is medically optimized for planned procedure. Preoperative Recommendations: Perioperative beta rahul recommendation: Continue current beta-rahul as prescribed perioperatively Perioperative steroid therapy recommendation:: Not indicated DVT prophylaxis recommendation: As per surgical team Obstructive sleep apnea risk assessment: STOP-Bang Total Score: 3 Sleep apnea risk stratification: STOP-Bang Intermediate Risk 3-4 questions Recommendations: Patient is at low risk for sleep apnea related complications. Surgical site infection prophylaxis recommendation: Not indicated Other medication recommendations: Reviewed NPO and preoperative medication guidelines with patient. Hold vitamins, herbal supplements, NSAIDS 7 days before surgery. Tylenol (acetaminophen) can be used for pain management up until surgery Radha Graves APRN, M.S.N. documented in this encounter Consult Notes * Samreen Cisneros RSammi - 12/22/2018 9:19 AM EDT Chart reviewed for transition planning S/P robotic assisted hysterectomy, BSO for endometrial CA OP status Pts DC written for today Pt resides in [place] with spouse Pt independent with ADL prior to this admission No DC needs identified at this time CM services remain available if needs arise DC code: 1 documented in this encounter Nursing Notes * Elise Hudson RSammi - 12/22/2018 9:37 AM EDT Shift Goals: Clinical Goals for the Shift: Pt will remain free of infection. Identify possible barriers to meeting goals/advancing plan of care: None End of Shift Summary: Pt VSS, no c/o. Discharge home. Problem: SAFETY ADULT Goal: Maintain a safe environment Outcome: Adequate for Discharge Problem: SAFETY ADULT - RISK FOR FALL AND OR FALL INJURY Goal: Patient remains free from fall/fall injury Outcome: Adequate for Discharge Problem: PAIN - ADULT Goal: PT VERBALIZES/DEMONSTRATES ADEQUATE COMFORT LEVEL OR BASELINE Outcome: Adequate for Discharge Problem: KNOWLEDGE DEFICIT Goal: Patient/family/caregiver demonstrates understanding of disease process, treatment plan, medications, and discharge instructions Outcome: Adequate for Discharge Problem: INFECTION - ADULT Goal: Absence of infection during hospitalization Outcome: Adequate for Discharge Problem: SKIN/TISSUE INTEGRITY Goal: Skin/Tissue integrity maintained or improved Outcome: Adequate for Discharge Goal: Oral and Nasal mucous membranes remain intact Outcome: Adequate for Discharge Problem: DISCHARGE PLANNING Goal: Patient discharge needs identified Outcome: Adequate for Discharge * Patricia Schwartz R.N. - 12/21/2018 8:15 PM EDT Skin assessment: Mepilex removed, skin assessed. Skin WNL. Mepilex reapplied * Patricia Schwartz R.N. - 12/21/2018 7:33 PM EDT Shift Goals: Pt with adequate knowledge of POC enabling her participation in the plan Identify possible barriers to meeting goals/advancing plan of care: none End of Shift Summary: Pt able to understand and participate in the POC. Pain controlled pain med * Madisyn Ramos R.N. - 12/21/2018 6:41 PM EDT Shift Goals: Patient will be oriented to room and staff Identify possible barriers to meeting goals/advancing plan of care: surgery End of Shift Summary: patient oriented to room and staff, and bedside, pain under control, skin intact, below sacrum red but blanchable, mepilex applied, continuing to monitor documented in this encounter OR Notes * Op Note - Ang Hilliard M.D. - 12/21/2018 1:58 PM EDT Procedure(s) (LRB): Robotic-Assisted Hysterectomy With Bilateral Salpingo Oophorectomy, [place] Lymph Node mapping anddissection (N/A) Surgeon(s) and Role: * Rose Mary Gutierrez M.D. - Primary * Ang Hilliard M.D. - Tailer In ANESTHESIA TYPE General PRE-OPERATIVE DIAGNOSIS Endometrial Cancer POST-OPERATIVE DIAGNOSIS Endometrial Cancer FINDINGS External genitalia grossly normal. No evidence of lesions, masses or concerns of malignancy. Vagina appears to be grossly normal. Adequately estrogenized. No evidence of lesions, masses or concerns of malignancy. Cervix appears to be grossly normal. No evidence of discharge or bleeding through the cervical os. No evidence of lesions, masses, no concerns of dysplasia/malignancy. Diagnostic laparoscopy - upper abdomen appears to be grossly normal, including diaphragm, omentum (no evidence of masses or lesion or concern of malignancy), liver, stomach and bowel. No concerns of malignancy. - lower abdomen - uterus appears to be 7-8 weeks in size. No evidence of fibroids or masses altering the normal uterine anatomy, uterine serosa appears to be intact. Bilateral adnexa appeared to be grossly normal. No evidence of lesions, masses or concerns of malignancy. Anterior and posterior cul-de-sac appears to be grossly normal. No evidence of lesions, masses, endometriosis or concerns of malignancy. Diagnostic cystoscopy - bladder mucosa vesical cavity appears to be grossly normal. No evidence of lesions, masses or concerns of malignancy. Bilateral ureteral jets were seen multiple times per giving sodium fluorescein. ?? [place] lymph nodes: - right sentinel lymph node: external iliac - left sentinel lymph node: obturator Frozen section was negative for both lymph nodes. ?? Full Operative Note Details ?? DESCRIPTION OF PROCEDURE The patient was prepped and draped in synchronous position in Natanael stirrups. A time-out was performed to confirm adequate patient and adequate procedure. Attention was placed into the pelvic area. A bivalve speculum was placed into the vagina and the cervix was visualized. A single-tooth tenaculum was placed in the anterior cervix and ICG was injectedto the cervix at 3 and 9 o'clock. A Poken- [employer] uterine manipulator was placed in the usual fashion for uterine manipulation.?? Gloves were changed, and attention turned to the abdomen. A small incision was made above and to the right of the??umbilicus, the fascia was identified and entered. ??Stay sutures were placed on the fascia. ??The muscle belly were . ??The peritoneum was identified and entered. ??A blunt trocar was placed and tied into place. A laparoscope with camera attachment was used to visualize the peritoneal cavity as described above. The remaining 3 robotic ports (one of them used as children's nursery assistant port) were placed under direct vision. At this point the robot was docked, after placing the patient in steep Trendelenburg position. Pelvic washings were obtained and sent to pathology. The surgery commenced with dissection of the left round ligament. ??The retroperitoneum was dissected. The left ureter was identified and its course fol lowed in the medial leaf of the broad ligament. The laser light was turned on to visualize the sentinel lymph node. The nodes mapped to the area as noted previously. ??[place] lymph node dissection was then done. ??The result was as noted previously in the findings section. ??Attention was then placed into the contralateral side, the procedure was performing the very similar manner and the rightsentinel lymph nodes was obtained and sent to pathology. The surgery continued with bilateral salpingo-oophorectomy. ??Attention was then placed into the right adnexa. The right ureter was then again identified. Having the ureter identified the IP ligamentwas they identified and a window was created in the medial leaf of the broad ligament keeping the ureter lateral. The IP ligament was then coagulated and cut using the bipolar energy followed by monopolar scissors. Attention was then placed into the contralateral side where we performed this in a very similar fashion. Surgery continued with the hysterectomy. Attention was then placed into creating the bladder flap. The vesicouterine peritoneum was dissected and the bladder dissected free from the lower uterine segment, cervix, and vagina. ??The uterine arteries were skeletonized and then bilaterally were clampedcoagulated and cut. ??Further dissection of the bladder was done to mobilize it further downward along with the ureter, traveling with the bladder. The uterosacral ligaments bilaterally were then clamped coagulated and cut. The uterine artery pedicle were lateralized. ??This allowed significant upward traction on the cervix via the uterine manipulator. ??At this point, as all of the blood supply and the supporting ligaments of the uterus had been secured, monopolar cautery was used to incise the vagina over the cup of the VCare uterine manipulator. ??The specimen, which is the uterus/cervix and the two omental segments were removed from the operative field via the vagina.The vagina was thenclosed using 0 V-loc 180 suture with good hemostasis noted. ?? At this point, as all of the procedures has been completed, copious irrigation of the abdomen and pelvis was done. ??All sites were noted to be hemostatic. ??A low-pressure check was done. ??The ureters were noted to be peristalsing normally, not dilated or in any way abnormal in appearance. ??The instruments were removed, the ports were removed and the robot was undocked. The patient was taken out of Trendelenburg position. Sponge and needle counts were correct prior to abdominal closure. ??The small incisions were closed using 2-0 vicryl for the subcutaneous tissue followed by 4-0 for the skin in a subcuticular manner. The camera port was closed using 0 PDS on the fascia with 4 interrupted stitches, followed by 2 0 Vicryl in subcutaneous tissue and 4-0 Monocryl on the skin in a subcuticular manner. ??All incisions were sealed with histoacryl??skin glue. ??Sponge and needle counts werecorrect again at the end of the procedure. Clear urine continues to flow from the Bey catheter. The Bey catheter was finally removed. ?? The patient tolerated the procedure well and was transferred to recovery room in stable condition. Dr. Gutierrez was present and participated actively throughout the entire procedure. Full Operative Note Details SPECIMENS ID Type Source Tests Collected by Time A : Pelvic washings Fluid Peritoneal Fluid CYTOLOGY NON-DREDGE ENGINEER Rose Mary Gutierrez M.D. 12/21/2018 1419 B : Left Obturator sentinel lymph node Tissue Lymph Node, [place] [facility] Rose Mary Gutierrez M.D. 12/21/2018 1425 C : Right external Illiac [place] Lymph node Tissue Lymph Node, [place] [facility] Rose Mary Gutierrez M.D. 12/21/2018 1444 D : uterus, cervix, bilateral fallopian tubes and ovaries Tissue Uterus [facility] Rose Mary Gutierrez M.D. 12/21/2018 1512 E : right pelvic lymph nodes Tissue Lymph Node [facility] Rose Mary Gutierrez M.D. 12/21/2018 1521 DRAINS GI Tubes (Adults) Orogastric Center (Active) 12/21/18 1333 Center Placed by External Staff?: Placed by: ADRIAN Barraza GI Tube Type: Orogastric GI Tube Size: 14 Fr Length (cm): Removal Reason: [REMOVED] Indwelling Urinary Catheter Latex 16 Fr. (Removed) 12/21/18 1400 Placed by: Dr. Hilliard Placed by External Staff?: Hand Hygiene Performed Prior to Insertion: Yes Sterile technique followed?: Yes Catheter Type: Latex Tube Size (Fr.): 16 Fr. Catheter Balloon Size: 10 mL Urine Returned: Yes Removal Reason: Criteria for drain removal met Removed 12/21/18 1540 ESTIMATED BLOOD LOSS 25 cc IMPLANTS * No implants in log * INTRA-OPERATIVE MEDICATIONS Intra-op Medications Date/Time Order Dose Route Action Action by 12/21/2018 1326 heparin (porcine) injection 5,000 Units 5,000 Units subcutaneous Given Jasmin Barraza 12/21/2018 1333 ceFAZolin in dextrose (iso-os) IVPB 2 g (ANCEF) 2 g intravenous Given Jasmin Barraza 12/21/2018 1401 indocyanine green injection (IC-GREEN) 3 mg cervical Given Joana Hilliard 12/21/2018 1405 ropivacaine (PF) 5 mg/mL (0.5 %) injection (NAROPIN) 10 mL injection Given Joana Hilliard M.D. Cosigned by Rose Mary Gutierrez M.D. at 12/22/2018 5:10 PM EDT * Brief Op Note - Ang Hilliard M.D. - 12/21/2018 1:58 PM EDT BRIEF OP NOTE Procedure(s) (LRB): Robotic-Assisted Hysterectomy With Bilateral Salpingo Oophorectomy, [place] Lymph Node mapping anddissection (N/A) Surgeon(s) and Role: * Rose Mary Gutierrez M.D. - Primary * Ang Hilliard M.D. - Tailer In Anesthesia Type: General Pre-Operative Diagnosis: Endometrial Cancer Brief Operative Note Details Specimens ID Type Source Tests Collected by Time A : Pelvic washings Fluid Peritoneal Fluid CYTOLOGY NON-DREDGE ENGINEER Rose Mary Gutierrez M.D. 12/21/2018 1419 B : Left Obturator sentinel lymph node Tissue Lymph Node, [place] [facility] LAB Rose Mary Gutierrez M.D. 12/21/2018 1425 C : Right external [place] Lymph node Tissue Lymph Node, [place] SURGICAL PATHOLOGY, [facility] Rose Mary Gutierrez M.D. 12/21/2018 1444 D : uterus, cervix, bilateral fallopian tubes and ovaries Tissue Uterus SURGICAL PATHOLOGY, [facility] Rose Mary Gutierrez M.D. 12/21/2018 1512 E : right pelvic lymph nodes Tissue Lymph Node SURGICAL PATHOLOGY, [facility] Rose Mary Gutierrez M.DRebeca 12/21/2018 1521 Drains GI Tubes (Adults) Orogastric Center (Active) 12/21/18 1333 Center Placed by External Staff?: Placed by: ADRIAN Barraza GI Tube Type: Orogastric GI Tube Size: 14 Fr Length (cm): Removal Reason: [REMOVED] Indwelling Urinary Catheter Latex 16 Fr. (Removed) 12/21/18 1400 Placed by: Dr. Hilliard Placed by External Staff?: Hand Hygiene Performed Prior to Insertion: Yes Sterile technique followed?: Yes Catheter Type: Latex Tube Size (Fr.): 16 Fr. Catheter Balloon Size: 10 mL Urine Returned: Yes Removal Reason: Criteria for drain removal met Removed 12/21/18 1540 Estimated Blood Loss 25 cc Implants * No implants in log * Ang Hilliard M.D. documented in this encounter Miscellaneous Notes * Result Encounter Note - Rose Mary Gutierrez M.D. - 12/22/2018 12:09 PM EDT I sent the patient a letter. I also spoke to her on the phone regarding the pathology report. Please schedule for the patient a consult with Dr. Tania Townsend of Radiation Oncology over the next several weeks, at the patient's convenience. Sincerely, Rose Mary Gutierrez MD Gynecologic Oncology and Surgery [facility], [place] [address] I have courtesy copied the patient on this note. documented in this encounter Plan of Treatment Not on file documented as of this encounter Procedures Procedure Name Priority Date/Time Associated Diagnosis Comments CBC WITHOUT DIFFERENTIAL, B Routine 12/22/2018 5:50 AM EDT BASIC METABOLIC PANEL, S/P Routine 12/22/2018 5:50 AM EDT ADULT OXYGEN THERAPY Routine 12/21/2018 6:05 PM EDT ADULT OXYGEN THERAPY Routine 12/21/2018 6:05 PM EDT SURGICAL PATHOLOGY, [facility] STAT 12/21/2018 2:44 PM EDT CYTOLOGY NON-DREDGE ENGINEER Routine 12/21/2018 2:19 PM EDT TYPE AND SCREEN STAT 12/21/2018 12:51 PM EDT ROBOTIC-ASSISTED HYSTERECTOMY TOTAL ABDOMINAL WITH BILATERAL SALPINGO OOPHORECTOMY 12/21/2018 12:45 PM EDT Endometrial Cancer documented in this encounter Results * Obstetrics and Gynecology Post Op (clinic) (01/21/2019 11:38 AM EDT) us Donn Hilliard M.D. OUTPATIENT RETURN VISITS Fi nal Result * (ABNORMAL) CBC without Differential (12/22/2018 5:50 AM EDT) Leukocytes 15.6(H) 3.4 - 9.6 x10(9)/L 12/22/2018 6:19 AM EDT Erythrocytes 4.30 3.92 - 5.13 x10(12)/L 12/22/2018 6:19 AM EDT Hemoglobin 12.9 11.6 - 15.0 g/dL 12/22/2018 6:19 AM EDT Hematocrit 38.7 35.5 - 44.9 % 12/22/2018 6:19 AM EDT MCV 90.0 78.2 - 97.9 fL 12/22/2018 6:19 AM EDT MCH 30.0 25.4 - 32.7 pg 12/22/2018 6:19 AM EDT MCHC 33.3 31.3 - 34.7 g/dL 12/22/2018 6:19 AM EDT RDW CV 14.1 12.2 - 16.1 % 12/22/2018 6:19 AM EDT RDW SD 46.8(H) 36.4 - 46.3 fL 12/22/2018 6:19 AM EDT Platelet Count 278 157 - 371 x10(9)/L 12/22/2018 6:19 AM EDT Mean Platelet Volume 10.1 7.4 - 10.9 fL 12/22/2018 6:19 AM EDT Blood (Blood, Venous) 12/22/2018 5:50 AM EDT 12/22/2018 6:08 AM EDT us Donn Hilliard M.D. LAB BLOOD ADD-ON Final Resu lt [facility] [address] [place] [address], [facility] * BMP (Basic Metabolic Panel) (12/22/2018 5:50 [...] mg/dL 12/22/2018 6:50 AM EDT eGFR-Black/Afric an Gabonese >90 >=60 mL/min/BSA 12/22/2018 6:50 AM EDT Comment: ----ADDITIONAL INFORMATION---- Estimated GFR calculated using the 2009 CKD_EPI creatinine equation. eGFR Non-Black/Hope n Gabonese >90 >=60 mL/min/BSA 12/22/2018 6:50 AM EDT Comment: ----ADDITIONAL INFORMATION---- Estimated GFR calculated using the 2009 CKD_EPI creatinine equation. Calcium, Total, P 9.4 8.8 - 10.2 mg/dL 12/22/2018 6:50 AM EDT Glucose, P 136 70 - 140 mg/dL 12/22/2018 6:50 AM EDT Blood (Blood, Venous) 12/22/2018 5:50 AM EDT 12/22/2018 6:09 AM EDT us Donn Hilliard M.D. LAB BLOOD ADD-ON Final Resu lt [facility] [address] [place] [address], [facility] * Surgical Pathology, Frozen Lab (12/21/2018 2:44 PM EDT) Gross Description A) Received fresh for frozen section labeled left obturator sentinel lymph node is a portion of node bearing adipose tissue measuring 0.8 cm in greatest dimension. Dissection yields one apparent lymph node measuring 0.4 cm in greatest dimension. This is entirely submitted for frozen section as A1. B) Received fresh for frozen section labeled right external iliac sentinel lymph node is an aggregate of node bearing adipose tissue measuring approximately 1.2 cm in greatest dimension. Dissection yields three apparent lymph nodes measuring up to 0.7 cm in greatest dimension. These are entirely submitted for frozen section as B1. AME/thaddeus C) Received in formalin labeled uterus, cervix, bilateral fallopian tubes, and ovaries is a uterus with attached cervix and attached bilateral adnexa. The right and left parametrium are shaved and submitted into cassettes C1-C2, respectively. The right adnexum has an identifiable tube with fimbriated end. The tube measures 5.2 cm in length by 0.5 cm in diameter. At least two paratubal cysts are identified ranging up to 0.3 cm in greatest dimension. The ovary is galeas/yellow, bosselated, intact, and measures 1.7 x 1.2 x 0.9 cm. The capsular surface is finely granular. The ovary is sectioned to reveal a galeas/yellow, rubbery ovarian parenchyma with simple cysts. Sections of the right adnexum are submitted into cassettes C3-C4 to include fallopian tube and ovary (C3 includes the entire bisected fimbriated end). The left adnexum has an identifiable tube with fimbriated end. The tube measures 4.0 cm in length by 0.7 cm in diameter. At least four paratubal cysts are identified ranging up to 0.3 cm in greatest dimension. The associated ovary is galeas/yellow, bosselated, intact, and measures 1.7 x 1.1 x 0.9 cm. The capsular surface is finely granular. The ovary is sectioned to reveal a galeas/yellow, rubbery ovarian parenchyma with focal pale mcintosh areas. A safety representative section from the left adnexum to include fallopian tube and ovary is submitted into cassettes C5-C6 (C5 includes the entire bisected fimbriated end). The uterus with attached cervix and without bilateral adnexa weighs 43 grams and measures 4.2 cm cornu to cornu, 2.9 cm anterior to posterior, and 7.4 cm fundus to ectocervix. The serosa is red/galeas to purple. The cervix is ovoid and measures 3.0 x 2.8 cm. The cervical mucosa is mcintosh/galeas and glistening. The cervical os is ovoid and measures 0.8 cm in greatest dimension. The uterus is bivalved to reveal a galeas/brown to reddish/brown endocervical mucosa. Involving the anterior and posterior endometrium at the fundus is a galeas/brown mass that measures 2.0 x 1.4 cm in greatest dimension. The mass grossly appears to extend 0.4 cm into the 0.9 cm thick posterior myometrium. Three mcintosh/galeas intramural nodules are identified ranging up to 1.1 cm in greatest dimension. No areas of hemorrhage or necrosis are identified. Additional safety representative sections are submitted as follows: C7-C8 longitudinal section of anterior lower uterine segment and ectocervix bisected, C9-C10 full-thickness sections of anterior endomyometrium to include mass (two sections in each cassette), C11 anterior intramural nodule, C12-C13 longitudinal section of the posterior lower uterine segment and ectocervix bisected, C14-C16 posterior endomyometrium to include mass (C16 includes the posterior intramural nodule). D) Received in formalin labeled right pelvic lymph nodes are two possible lymph nodes with attached soft tissue that range up to 0.5 cm in greatest dimension. The specimens are submitted intact into cassette D1. JLH/clb 12/23/2018 2:18 PM EDT Intraoperative Preliminary Diagnosis A) ??Left obturator sentinel node, biopsy: ??One lymph node negative for tumor (0/1). B) ??Right external iliac sentinel node, biopsy: ??One lymph node negative for tumor (0/1). MTO/lad 12/23/2018 2:18 PM EDT Specimen Source A) Left obturator sentinel node FS B) Right external iliac sentinel node FS C) Uterus, cervix, bilateral fallopoian tubes and ovaries D) Right pelvic lymph nodes 12/23/2018 2:18 PM EDT Report electronically signed by Naveen Bach M.D. I verify that I have examined all relevant slides/materials for the specimen(s) and rendered or confirmed the diagnosis. 12/23/2018 2:18 PM EDT 12/23/2018 2:18 PM EDT Clinical Information Endometrial cancer 12/23/2018 2:18 PM EDT Interpretation FINAL DIAGNOSIS: A) ??Left obturator sentinel node, biopsy: ??One lymph node, negative for tumor (0/1). B) ??Right external iliac sentinel node, biopsy: ??One lymph node, negative for tumor (0/1). 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 Leiomyomata. ??All resection margins are negative. See synoptic report. Bilateral fallopian tubes and ovaries are unremarkable. D) Right pelvic lymph nodes, dissection: Two benign lymph nodes, negative for tumor (0/2). QZ/blb SYNOPTIC REPORT Procedure: Total hysterectomy and bilateral salpingo-oophorec tyrel Tumor Site: Endometrium Tumor Size: Greatest dimension: 2.0 cm Histologic Type: Endometrioid carcinoma, NOS Histologic Grade: FIGO grade 1 Myometrial Invasion: Present Depth Of Invasion: 0.8 cm Myometrial Thickness: 1.0 cm Uterine Serosa Involvement: Not identified Lower Uterine Segment Involvement: Not identified Cervical Stromal Involvement: Not identified Margins ? Ectocervical/Vagi nal Cuff Margin: Uninvolved by carcinoma ? Parametrial/Parac ervical Margin: Uninvolved by carcinoma Lymphovascular Invasion: Not identified Regional Lymph Nodes ? Pelvic Node Examination ?Number of Pelvic Nodes with Macrometastasis: 0 ?Total Number of Pelvic Nodes Examined: 4 ? Para-aortic Lymph Nodes ?No para-aortic lymph nodes submitted or found Pathologic Staging (AJCC, 8th edition) ? Primary Tumor: pT1b: Tumor invading one-half or more of the myometrium ? Regional lymph nodes ?Category: pN0: No regional lymph node metastasis The synoptic report incorporates information from all relevant surgical material and includes all required data elements of the current [facility] Cancer Protocol. 12/23/2018 2:18 PM EDT Tissue (Lymph Node, [place]) 12/21/2018 2:44 PM EDT Tissue (Uterus) 12/21/2018 3 :12 PM EDT Tissue (Lymph Node) 12/21/2018 3:21 PM EDT us Rose Mary Gutierrez M.D. LAB SURG PATH ORDERABLES Final R esult [facility] [address] [place] [address], [facility] * Cytology Non-DREDGE ENGINEER (12/21/2018 2:19 PM EDT) Gross Description Received 35 mL of clear fluid. ??Made 2 concentrated cytospin slides. 12/23/2018 5:40 PM EDT Source A. Peritoneal, washing 12/23/2018 5:40 PM EDT Report electronically signed by Kelli Rodarte M.D. I verify that I have examined all relevant slides/material s for the specimen(s) and rendered or confirmed the diagnosis. 12/23/2018 5:40 PM EDT 12/23/2018 5:40 PM EDT Interpretation A. Peritoneal, washing (cytospin): Negative for malignancy. Reactive mesothelial cells present. Acute inflammation. 12/23/2018 5:40 PM EDT Fluid (Peritoneal Fluid) 12/21/2018 2:19 PM EDT us Rose Mary Gutierrez M.D. LAB SURG PATH ORDERABLES Final R esult [facility] [address] * Type and Screen (with reflex Antibody ID) (12/21/2018 12:51 PM EDT) ABO Group O 12/21/2018 1:55 PM EDT Rh Type NEG 12/21/2018 1:55 PM EDT Antibody Screen NEG 9 1:55 PM EDT Type & Screen Expiration 12/24/2018 23:59 12/21/2018 1:55 PM EDT ELXM Eligible Y 12/21/2018 1:55 PM EDT Blood (Blood, Venous) 12/21/2018 12:51 PM EDT 12/21/2018 1:05 PM EDT Narrative [facility] - 12/21/2018 1:55 PM EDT Specimen Information: Specimen ID: [id number] Specimen Type: Blood Specimen Collection Start Date: 12/21/2018 12:51 PM Specimen Received Date: 12/21/2018 ??1:05 PM Specimen ID: [id number] Specimen Type: Blood Specimen Collection Start Date: 12/21/2018 12:51 PM Specimen Received Date: 12/21/2018 ??1:05 PM Inna Turner P.A.-C. LAB BLOOD BANK TEST OR DERABLES Final Result [facility] [address] [place] [address], [facility] documented in this encounter Visit Diagnoses Diagnosis Hypertensive Chronic Kidney Disease With Stage 1 Through Stage 4 Chronic Kidney Disease, Or Unspecified Chronic Kidney Disease- Primary Malignant Neoplasm Of Uterus Endometrial (HCC) Anxiety Malignant Neoplasm Of Uterus Endometrial (HCC) documented in this encounter Administered Medications Inactive Administered Medications - up to 3 most recent administrations Medication Order MAR Action Action Date Dose Rate Site acetaminophen tablet 1,000 mg (TYLENOL) 1,000 mg, oral, Once, On Thu12/21/18 at 1145, For 1 dose, Pre-Op, In Pre Op holding (PWA) Given 12/21/2018 12:07 PM EDT 1,000 mg acetaminophen tablet 1,000 mg (TYLENOL) 1,000 mg, oral, Every 6 hours, First dose on Thu12/21/18 at 2000, not to exceed 4 grams in 24 hours. Given 12/22/2018 8:35 AM EDT 1,000 mg Given 12/22/2018 2:33 AM EDT 1,000 mg Given 12/21/2018 8:25 PM EDT 1,000 mg atenolol tablet 25 mg (TENORMIN) 25 mg, oral, Daily, First dose on Thu12/22/18 at 0900 Given 12/22/2018 8:35 AM EDT 25 mg famotidine injection 20 mg (PEPCID) 20 mg, intravenous, 2 times daily, First dose on Thu12/21/18 at 2100, Drug Monitoring Program: Pharmacist to adjust medication dosing based on indication and drug clearance factors. Given 12/22/2018 8:35 AM EDT 20 mg Given 12/21/2018 8:25 PM EDT 20 mg heparin (porcine) injection 5,000 Units 5,000 Units, subcutaneous, Every 8 hours scheduled, First dose on Thu12/22/18 at 0000 Given 12/22/2018 8:35 AM EDT 5,000 Units Left Lower Abdomen Given 12/22/2018 12:31 AM EDT 5,000 Units Right Lower Abdomen HYDROmorphone injection 0.5 mg (DILAUDID) 0.5 mg, intravenous, Every 5 min PRN, moderate pain or score 4-6 of 10, severe pain or score 7-10 of 10, Starting on Thu12/21/18 at 1638, For 4 doses, PACU (only), Up to maximum total dose of 2 mg, Indications: Acute PainIndications:Acute Pain Given 12/21/2018 4:56 PM EDT 0.5 mg Given 12/21/2018 4:47 PM EDT 0.5 mg ketorolac injection 15 mg (TORADOL) 15 mg, intravenous, Once, On Thu12/21/18 at 1715, For 1 dose, PACU (only), Adult IV push rate: Over 15 seconds. Peds IV push rate: Over 1 minute. 60 mg dose only for IM, not recommended for IV. Given 12/21/2018 5:11 PM EDT 15 mg lactated ringers 30 mL/hr, intravenous, Continuous, Starting on Thu12/21/18 at 1145, Pre-Op Rate/Dose Verify 12/21/2018 1:16 PM EDT New Bag 12/21/2018 12:03 PM EDT 30 mL/hr 30 mL/hr lidocaine (PF) 10 mg/mL (1 %) injection 0.1 mL (XYLOCAINE) 0.1 mL, intradermal, As needed, for venipuncture, Starting on Thu12/21/18 at 1142, Pre-Op Given 12/21/2018 12:03 PM EDT 0.1 mL oxyCODONE IR tablet 10 mg (ROXICODONE) 10 mg, oral, Every 4 hours PRN, severe pain or score 7-10 of 10, Administer if pain is unrelieved by acetaminophen, Starting on Thu12/21/18 at 1804, For patients that received intrathecal analgesia, start 24 hours after intrathecal dose given oxyCODONE IR tablet 5 mg (ROXICODONE) 5 mg, oral, Every 4 hours PRN, moderate pain or score 4-6 of 10, Administer if pain is unrelieved by acetaminophen., Starting on Thu12/21/18 at 1804, For patients that received intrathecal analgesia, start 24 hours after intrathecal dose given potassium chloride 20 mEq in NaCl 0.45 % infusion 40 mL/hr, intravenous, Continuous, Starting on Thu12/21/18 at 1815 Rate/Dose Verify 12/22/2018 5:00 AM EDT 40 mL/hr 40 mL/hr Rate/Dose Verify 12/21/2018 10:00 PM EDT 40 mL/hr 40 mL/ hr New Bag 12/21/2018 8:23 PM EDT 40 mL/hr 40 mL/hr sennosides-docusate sodium 8.6-50 mg per tablet 1 tablet (SENOKOT-S) 1 tablet, oral, 2 times daily, First dose on Thu12/21/18 at 2100, Starting evening of surgery. Given 12/22/2018 8:35 AM EDT 1 tablet Given 12/21/2018 8:25 PM EDT 1 tablet traMADol tablet 100 mg (ULTRAM) 100 mg, oral, 2 times daily, First dose on Thu12/21/18 at 2100 Given 12/22/2018 8:35 AM EDT 100 mg Given 12/21/2018 8:25 PM EDT 100 mg documented in this encounter Active and Recently Administered Medications Times are shown in EDT. Scheduled Medication Order 12/20/2018 12/21/2018 12/22/2018 acetaminophen tablet 1,000 mg (TYLENOL) (COMPLETED) 1,000 mg, oral, Once, On Thu12/21/18 at 1145, For 1 dose, Pre-Op, In Pre Op holding (PWA) 1207 (Given - Provider: Michelle Jones, R.N.) acetaminophen tablet 1,000 mg (TYLENOL) 1,000 mg, oral, Every 6 hours, First dose on Thu12/21/18 at 2000, not to exceed 4 grams in 24 hours. 2024 (Given - Provider: Patricia Schwartz RSammi) 0233 (Given - Provider: Patricia Schwartz RNancy.)0835 (Given - Provider: Elise Hudson RRebecaN.) atenolol tablet 25 mg (TENORMIN) 25 mg, oral, Daily, First dose on Thu12/22/18 at 0900 0835 (Given - Provid er: Elise Hudson R.N.) ceFAZolin in dextrose (iso-os) IVPB 2 g (ANCEF) (COMPLETED) 2 g (rounded from 2.2325 g = 25 mg/kg ? 89.3 kg), intravenous, at 200 mL/hr, Administer over 30 Minutes, Once, On Thu12/21/18 at 1145, For 1 dose, Intra-Op, Preoperatively within 1 hour prior to surgical incision premix, Drug Monitoring Program: Pharmacist to adjust medication dosing based on indication and drug clearance factors., Indications: Prophylaxis, surgical 1333 (Given - Provider: Flako Barraza APRN, ADRIAN) famotidine injection 20 mg (PEPCID) 20 mg, intravenous, 2 times daily, First dose on Thu12/21/18 at 2100, Drug Monitoring Program: Pharmacist to adjust medication dosing based on indication and drug clearance factors. 2024 (Given - Provider: Patricia Schwartz R.N.) 0835 (Given - Provider: Elise Hudson R.N.) heparin (porcine) injection 5,000 Units (COMPLETED) 5,000 Units, subcutaneous, Once, On Thu12/21/18 at 1145, For 1 dose, Intra-Op, Administer prior to induction of anesthesia. 132 (Given - Provider: Flako Barraza APRN, CRNA) heparin (porcine) injection 5,000 Units 5,000 Units, subcutaneous, Every 8 hours scheduled, First dose on Thu12/22/18 at 0000 0031 (Given - Provid er: Patricia Schwartz R.N.)0835 (Given - Provider: Elise Hudson R.N.) ketorolac injection 15 mg (TORADOL) (COMPLETED) 15 mg, intravenous, Once, On Thu12/21/18 at 1715, For 1 dose, PACU (only), Adult IV push rate: Over 15 seconds. Peds IV push rate: Over 1 minute. 60 mg dose only for IM, not recommended for IV. 1710 (Given - Provider: Jacques HowardNRebeca) magnesium hydroxide suspension 30 mL (MILK OF MAGNESIA) 30 mL, oral, 2 times daily, First dose on Thu12/21/18 at 2100, Starting evening of surgery. After first bowel movement discontinue Magnesium hydroxide. 2021 (Not Given - Provider: Patricia Schwartz R.N. - Reason: Patient/family refused) 0836 (Not Given - Provider: Elise R Drahl, R.N. - Reason: Patient/family refused) sennosides-docusate sodium 8.6-50 mg per tablet 1 tablet (SENOKOT-S) 1 tablet, oral, 2 times daily, First dose on Thu12/21/18 at 2100, Starting evening of surgery. 2024 (Given - Provider: Patricia Schwartz R.N.) 0835 (Given - Provider: Elise Hudson R.N.) traMADol tablet 100 mg (ULTRAM) 100 mg, oral, 2 times daily, First dose on Thu12/21/18 at 2100 2024 (Given - Provider: Patricia Schwartz R.N.) 0835 (Given - Provider: Elise Hudson R.N.) Continuous Medication Order 12/20/2018 12/21/2018 12/22/2018 lactated ringers (CANCELED) 30 mL/hr, intravenous, Continuous, Starting on Thu12/21/18 at 1145, Pre-Op 1203 (New Bag - Provider: Michelle Jones, R.N.)1316 (Rate/Dose Verify - Provider: Flako Barraza APRN, MEDICAL IMAGING TECHNOLOGIST)1611 (Anesthesia Volume Adjustment - Provider: Anahi Ulrich APRN, MEDICAL IMAGING TECHNOLOGIST) potassium chloride 20 mEq in NaCl 0.45 % infusion 40 mL/hr, intravenous, Continuous, Starting on Thu12/21/18 at 1815 2022 (New Bag - Provider: Patricia Schwartz RRebecaNRebeca)2200 (Rate/Dose Verify - Provider: Patricia Schwartz R.N.) 0500 (Rate/Dose Verify - Provider: Patricia Schwartz R.N.) PRN Medication Order 12/20/2018 12/21/2018 12/22/2018 ALPRAZolam tablet 0.5 mg (XANAX) 0.5 mg, oral, Bedtime PRN, anxiety, Starting on Thu12/21/18 at 1804 HYDROmorphone injection 0.4 mg (DILAUDID) 0.4 mg, intravenous, Every 2 hour PRN, for breakthrough pain, Starting on Thu12/21/18 at 1804, Unrelieved 30 minutes after PRN oral pain medication is used; if unable to take oral pain medication; or if pain is greater than or equal to 7, use instead of oral pain medication. HYDROmorphone injection 0.5 mg (DILAUDID) (CANCELED) 0.5 mg, intravenous, Every 5 min PRN, moderate pain or score 4-6 of 10, severe pain or score 7-10 of 10, Starting on Thu12/21/18 at 1638, For 4 doses, PACU (only), Up to maximum total dose of 2 mg, Indications: Acute Pain 1647 (Given - Provider: Rogelio Mireles R.N.)1656 (Given - Provider: Manpreet Howard.N.) indocyanine green injection (IC-GREEN) (CANCELED) As needed, Starting on Thu12/21/18 at 1401, Intra-Op 1401 (Given - Provider: Ang Hilliard M.D. - Comment: cervical injection) labetalol injection 5 mg (NORMODYNE,TRANDATE) 5 mg, intravenous, Every 6 hours PRN, high blood pressure, BP >160/110, if after two doses it is not controlled please contact pt airport traffic controller, Starting on Thu12/21/18 at 1804 lidocaine (PF) 10 mg/mL (1 %) injection 0.1 mL (XYLOCAINE) (CANCELED) 0.1 mL, intradermal, As needed, for venipuncture, Starting on Thu12/21/18 at 1142, Pre-Op 1203 (Given - Provider: Michelle Jones, R.N.) naloxone injection 0.2 mg (NARCAN) 0.2 mg, intravenous, As needed, respiratory depression, Starting on Thu12/21/18 at 1804, For respiratory rate less than 8 breaths per minute or RASS score of -3, -4, -5. Apply oxygen to keep oxygen saturations greater than 90% and notify service. ondansetron (PF) injection 4 mg (ZOFRAN) 4 mg, intravenous, Every 6 hours PRN, nausea, vomiting, Starting on Thu12/21/18 at 1804, For 48 hours, Reassess for nausea or vomiting after at least 10 minutes. If nausea or vomiting persists administer next ordered antiemetic medications (order for antiemetic medication administration ondansetron then droperidol then promethazine). oxyCODONE IR tablet 10 mg (ROXICODONE)(Linked Group 1) 10 mg, oral, Every 4 hours PRN, severe pain or score 7-10 of 10, Administer if pain is unrelieved by acetaminophen, Starting on Thu12/21/18 at 1804, For patients that received intrathecal analgesia, start 24 hours after intrathecal dose given oxyCODONE IR tablet 5 mg (ROXICODONE)(Linked Group 1) 5 mg, oral, Every 4 hours PRN, moderate pain or score 4-6 of 10, Administer if pain is unrelieved by acetaminophen., Starting on Thu12/21/18 at 1804, For patients that received intrathecal analgesia, start 24 hours after intrathecal dose given promethazine injection 6.25 mg (PHENERGAN) 6.25 mg, intravenous, Every 6 hours PRN, nausea, vomiting, Starting on Thu12/21/18 at 1804, For 48 hours, RASS must be -2 or higher to administer. Reassess for nausea/vomiting after at least 10 minutes. If nausea or vomiting persists administer next ordered antiemetic medications (order for antiemetic medication administration ondansetron then droperidol then promethazine). ropivacaine (PF) 5 mg/mL (0.5 %) injection (NAROPIN) (CANCELED) As needed, Starting on Thu12/21/18 at 1405, Intra-Op 1405 (Given - Provider: Ang Hilliard M.D.) Linked Groups Order Group 1: oxyCODONE IR tablet 5 mg (ROXICODONE)Jump to med 5 mg, oral, Every 4 hours PRN, moderate pain or score 4-6 of 10, Administer if pain is unrelieved by acetaminophen., Starting on Thu12/21/18 at 1804, For patients that received intrathecal analgesia, start 24 hours after intrathecal dose given Or oxyCODONE IR tablet 10 mg (ROXICODONE)Jump to med 10 mg, oral, Every 4 hours PRN, severe pain or score 7-10 of 10, Administer if pain is unrelieved by acetaminophen, Starting on Thu12/21/18 at 1804, For patients that received intrathecal analgesia, start 24 hours after intrathecal dose given documented in this encounter
--- OUTSIDE RECORDS SUMMARY | 2024-07-17 10:38 | XMS_ITS | Encounter Summary ---
Author Organization [facility] Address [address] [place] [address] Care Team Providers Care Adult Protective Caseworker Name Role Phone Unavailable Primary Care Provider Unavailabl e Encounter Details Date Type Department Care Team (Late st Contact Info) Description 12/21/2018 1:16 PM EDT Anesthesia Event [facility] [address] MAIN OR [address] [place] [address] Jacques Rivera M.D. [address] [place] [address] Malia Reyes, CHANEL, ADRIAN, D.N.P. [address] [place] [address] Anesthesia Record Procedure Summary Procedure Name Responsible Anesthesiologist Anesthesia Start Time Anesthesia Stop Time Robotic-Assisted Hysterectomy With Bilateral Salpingo Oophorectomy, [place] Lymph Node mapping and dissection Jacques Rivera M.D. 12/21/18 1316 12/21/18 1621 Events Date Time Event Comment 12/21/2018 1315 In Room 1316 An Start Machine/Equipme nt Checked Infection Precautions Followed Procedure/Site Verified NPO Status Verified Supine Standard ASA Monitors Applied 1327 An Induction 1330 An Intubation 1332 Turnover to Proceduralist 1358 Proc Start 1608 Proc Fin 1608 Turnover to ANE Staff 1609 Airway Removal Criteria Met 1610 Extubation/Airway Removed 1612 Out of Room 1620 an stop data 1621 An End I completed my handoff to the receiving staff during which we 1. Identified the patient 2. Identified the responsible provider 3. Reviewed the pertinent medical history 4. Discussed the surgical course 5. Reviewed intra-op anesthesia management and issues during anesthesia 6. Set expectations for post-procedure period 7. Allowed opportunity for questions and acknowledgement of understanding. Meds Name Total midazolam 1 mg/mL injection 2 mg fentanyl injection 50 mcg/mL 250 mcg lidocaine 2% (mg) injection 60 mg propofol 10 mg/mL 150 mg propofol 10 mg/mL infusion 1,311.26 mg rocuronium 10 mg/mL injection 90 mg ePHEDrine PF 5 mg/mL syringe injection 1 5 mg phenylephrine 100 mcg/mL injection 300 m cg ondansetron 4 mg/2 mL injection 4 mg dexamethasone 10 mg/mL injection 4 mg sugammadex 100 mg/mL injection 176.6 mg ceFAZolin in dextrose (iso-os) IVPB 2 g (ANCEF) 2 g droperidol 0.625 mg/mL injection 0.625 m g heparin (porcine) injection 5,000 Units 5,000 Units HYDROmorphone 1 mg/mL injection 1 mg lactated ringers 800 mL NaCl 0.9% free drip 400 mL * Agents No agents on file. * Blood No blood administrations on file. Lines, Drains, and Airways Type Details Placement Removal Peripheral IV Placement Date: 12/21/18; Placement Time: 1203; Catheter Size: 20 G; Orientation: Right; Location: Hand; Site Prep: Alcohol; Technique: Anatomical landmarks; Inserted by: Berkley Box RN; Insertion Attempts: 1; Removal Date: 12/22/18; Removal Time: 1116; Removal Reason: Patient discharged 12/21/18 1203 by Anali Vilchis APRN, M.S.N. 12/22/18 1116 by Elise Hudson, R.N. ETT Placement Date: 12/21/18; Placement Time: 1330 (created via procedure documentation); Mask Ventilation: Oral/Nasal airway needed; Type: Standard ETT; Single Lumen Tube Size: 7 mm; Cuffed: Yes; Location: Oral; Removal Date: 12/21/18; Removal Time: 1610 12/21/18 1330 by Flako Barraza APRN, ADRIAN 12/21/18 1610 by Anahi Ulrich CRNA Peripheral IV Placement Date: 12/21/18; Placement Time: 1331; Catheter Size: 20 G; Orientation: Left; Location: Hand; Inserted by: MD Miguel (Aseptically); Removal Date: 12/22/18; Removal Time: 1115; Removal Reason: Patient discharged 12/21/18 1331 by Flako Barraza APRN, CORE MAKER 12/22/18 1115 by Elise Hudson RRebecaNRebeca NG/OG Tube 12/21/18; 1333; Orogastric; 14 Fr; Center; 12/21/18; 1601 12/21/18 1333 by Flako Barraza APRN, CORE MAKER 12/21/18 1601 by Anahi Ulrich CRNA Indwelling Urinary Catheter Placement Date: 12/21/18; Placement Time: 1400; Inserted by: Dr. Hilliard; Type: Latex; Size: 16 Fr.; Balloon Size: 10 mL; Urine Returned: Yes; Removal Date: 12/21/18; Removal Time: 1540; Removal Reason: Criteria for drain removal met 12/21/18 1400 by Karena Melgar RSammi 12/21/18 1540 by Gina Medley R.NRebeca (RETIRED) Incision 12/21/18; 1611; Perineum; PAD OB; 04/09/21 (Removed by background completion utility); 1418 (Removed by background completion utility) 12/21/18 1611 by Gina Medley R.NRebeca 04/09/21 1418 by Mdun-Lansqe-Msquwojbv d, Scheduling Automated Batch Job (RETIRED) Incision 12/21/18; 1611; Abdomen; trocar sites x 4; ADH HST LQ SKN CLR 0.5ML; 04/09/21 (Removed by background completion utility); 1418 (Removed by background completion utility) 12/21/18 1611 by Gina Medley RRebecaNRebeca 04/09/21 1418 by Rbsd-Nrqrhr-Ybqswubkg mark anthony Scheduling Automated Batch Job documented in this encounter Social History Tobacco Use Types Packs/Day Years Used Date Smoking Tobacco: Never Smokeless Tobacco: Never Alcohol Use Standard Drinks/Week Comments No 0 (1 standard drink = 0.6 oz pur e alcohol) Nutrition Answer Date Recorded Nutrition: EVOO Fat Source 13 12/19 Nutrition: Servings of Fruits/Vegetables per Day Not on file 12/19/2018 Dental Answer Date Recorded Dental: Regular Dentist 13 12/20/19 19 Comments No Sex and Gender Information Value Date Recorded Sex Assigned at Female 12/09/2018 1:18 PM CDT Legal Sex Female 8:44 AM CDT Gender Identity Female 12/09/2018 1:18 PM CDT Sexual Orientation Straight 12/09/2018 1: 18 PM CDT documented as of this encounter OR Notes * Anesthesia Postprocedure Evaluation - Jacques Rivera M.D. - 12/21/2018 4:29 PM EDT Patient: Claudia Desai Procedure Summary Date: 12/21/18 Room / Location: [place] [address] [id number] / [facility] - Surgery Anesthesia Start: 1316 Anesthesia Stop: 1621 Procedure: Robotic-Assisted Hysterectomy With Bilateral Salpingo Oophorectomy, [place] Lymph Node mapping and dissection (N/A ) Diagnosis: (Endometrial Cancer) Provider: Rose Mary Gutierrez M.D. Responsible Provider: Jacques Rivera M.D. Anesthesia Type: general ASA Status: 2 Anesthesia Type: general Last vitals Vitals Value Taken Time BP 134/74 12/21/2018 4:25 PM Temp 36.1 ??C 12/21/2018 4:20 PM Pulse 60 12/21/2018 4:28 PM Resp 10 12/21/2018 4:28 PM SpO2 100 % 12/21/2018 4:28 PM Vitals shown include unvalidated device data. Please reference Vitals flowsheet for most recent vital signs. Anesthesia Post Evaluation Patient Disposition: general care unit Cardiovascular status: hemodynamics (HR & BP) acceptable Respiratory status: patent airway with spontaneous effort Temperature: normothermic Oxygen requirements: room air Level of consciousness: awake Pain score: pain adequately controlled and/or at baseline Post Op nausea/vomiting: none Hydration status: euvolemic * Anesthesia Procedure Notes - Flako Barraza APRN, ADRIAN - 12/21/2018 1:59 PM EDTAssociated Order(s): Airway Airway Date/Time: 12/21/2018 1:30 PM Performed by: Flako Barraza APRN, CRNA Authorized by: Jacques Rivera M.D. Care team members present 1. Flako Barraza APRN, CRNA 3. Jacques Rivera M.D. Patient location during procedure: OR / Procedure Area PROCEDURE DETAILS: Mask difficulty assessment: oral/nasal airway needed Final airway type: video laryngoscope Laryngeal Manipulation: no Final best view of glottic structures - Cormack/Lehane Score: grade 2A ETT location: oral VL device: glide scope [place] scope blade size: 3 Adult tube size: 7 Adult ETT distance at teeth/gum: 22 Oral tube type: standard ETT Cuffed: yes Number of attempt to successful placement: 1 Airway confirmation: bilateral breath sounds, positive ETCO2 and bilateral chest rise Other previous techniques attempted: none PRE PROCEDURE DETAILS: Pre evaluation for airway management: procedure Urgency: elective Preop assessment of probable difficulty: no difficulty anticipated Sedation level: anesthetized Preoxygenation: bag valve mask POST PROCEDURE DETAILS: Procedure outcome: successful Airway event: no complications * Anesthesia Preprocedure Evaluation - Jacques Rivera M.D. - 12/21/2018 11:08 AM EDT Anesthesia Pre-Evaluation Pertinent components of the patient's history including current problem list, medical history, surgical history, family history, social history, medications and allergies were reviewed and updated asappropriate. The patient was examined and the Pre-op diagnosis, planned procedure, and H&P were reviewed [place]. Interview is focused on factors limited to anesthetic care planning. Communicated anesthetic care team with team provider. Preoperative Diagnosis: Procedure(s): Robotic-Assisted Hysterectomy With Bilateral Salpingo Oophorectomy, [place] Lymph Node Dissection Surgeon(s) and Role: * Rose Mary Gutierrez M.D. - Primary Lab Lab Results Component Value Date CREATININE 0.76 12/09/2018 Lab Results Component Value Date CALCIUM 9.5 12/09/2018 LABPHOS 3.6 12/09/2018 Lab Results Component Value Date HGBA1C 5.4 12/09/2018 Lab Results Component Value Date NA 141 12/09/2018 K 3.8 12/09/2018 CL 103 12/09/2018 CREATININE 0.76 12/09/2018 EGFR 81 12/09/2018 BUN 11 12/09/2018 ANIONGAP 11 12/09/2018 GLUCOSE 95 12/09/2018 CALCIUM 9.5 12/09/2018 ECG Ecg 12 Lead Result Date: 12/16/2018 Normal sinus rhythm Normal ECG No previous ECGs available Hg 13.6 on 12/09/18 PROBLEM LIST Relevant Problems CV (+) Hypertension And Chronic Kidney Disease Stage 1 To 4 RENAL/REPRO (+) Hypertension And Chronic Kidney Disease Stage 1 To 4 ONC (+) Malignant Neoplasm Of Uterus Endometrial (HCC) OBJECTIVE PHYSICAL EXAMINATION Airway (HEENT) Mallampati: II TM Distance: >3 FB Neck ROM: Full Mouth Opening: >3 cm Facies (pediatrics): normal Cardiovascular Rhythm: Regular Rate: Normal Functional Capacity: >4 METS Pulmonary Pulmonary Assessment: Clear General / Constitutional Constitutional Assessment: Normal Abdomen Normal Musculoskeletal Normal ASSESSMENT / PLAN ANESTHESIA PLAN ASA: 2 Anesthesia Plan: general PONV premed Patient seen and allergies reviewed; anesthesia plan and risks discussed directly with patient / legal guardian, or through an drain cleaner plumber; patient evaluated and approved for anesthesia / sedation. Use of blood products discussed with who consented to blood products. documented in this encounter Miscellaneous Notes * Addendum Note - Jacques Rivera M.D. - 12/21/2018 4:31 PM EDT Addendum created 12/21/18 1631 by Jacques Rivera M.D. Order list changed, Order sets accessed documented in this encounter Plan of Treatment Not on file documented as of this encounter Procedures Procedure Name Priority Date/Time Associated Diagnosis Comments LDA ANE ENDOTRACHEAL AIRWAY Routine 12/21/2018 1:59 PM EDT documented in this encounter Results * LDA ANE ENDOTRACHEAL AIRWAY (12/21/2018 1:59 PM EDT) Narrative Flako Barraza APRN, CRNA - 12/21/2018 1:59 PM EDT Flako Barraza APRN, CRNA ? 12/21/2018 ??2:01 PM Airway Date/Time: 12/21/2018 1:30 PM Performed by: Flako Barraza APRN, CRNA Authorized by: Jacques Rivera M.D. Care team members present 1. Flako Barraza APRN, CRNA 3. Jacques Rivera M.D. Patient location during procedure: OR / Procedure Area PROCEDURE DETAILS: Mask difficulty assessment: oral/nasal airway needed Final airway type: video laryngoscope Laryngeal Manipulation: no ?? Final best view of glottic structures - Cormack/Lehane Score: grade 2A ETT location: oral VL device: glide scope [place] scope blade size: 3 Adult tube size: 7 Adult ETT distance at teeth/gum: 22 Oral tube type: standard ETT Cuffed: yes Number of attempt to successful placement: 1 Airway confirmation: bilateral breath sounds, positive ETCO2 and bilateral chest rise Other previous techniques attempted: none PRE PROCEDURE DETAILS: Pre evaluation for airway management: procedure Urgency: elective Preop assessment of probable difficulty: no difficulty anticipated Sedation level: anesthetized Preoxygenation: bag valve mask POST PROCEDURE DETAILS: ? Procedure outcome: successful ?? Airway event: no complications Jacques Rivera M.D. ANESTHESIA ORDERABLES Final R esult documented in this encounter Visit Diagnoses Not on filedocumented in this encounter Administered Medications Inactive Administered Medications - up to 3 most recent administrations Medication Order MAR Action Action Date Dose Rate Site ceFAZolin in dextrose (iso-os) IVPB 2 g (ANCEF) 2 g (rounded from 2.2325 g = 25 mg/kg ? 89.3 kg), intravenous, at 200 mL/hr, Administer over 30 Minutes, Once, On Thu12/21/18 at 1145, For 1 dose, Intra-Op, Preoperatively within 1 hour prior to surgical incision premix, Drug Monitoring Program: Pharmacist to adjust medication dosing based on indication and drug clearance factors., Indications: Prophylaxis, surgicalIndications:Prophylaxis, surgical Given 12/21/2018 1:33 PM EDT 2 g dexamethasone injection (DECADRON) intravenous, As needed, Starting on Thu12/21/18 at 1335, Anesthesia Intra-op Given 12/21/2018 1:35 PM EDT 4 mg droperidol injection (INAPSINE) As needed, Starting on Thu12/21/18 at 1332, Anesthesia Intra-op Given 12/21/2018 1:32 PM EDT 0.625 mg ePHEDrine (PF) injection intravenous, As needed, Starting on Thu12/21/18 at 1331, Anesthesia Intra-op Given 12/21/2018 1:38 PM EDT 10 mg Given 12/21/2018 1:31 PM EDT 5 mg fentaNYL injection (SUBLIMAZE) intravenous, As needed, Starting on Thu12/21/18 at 1319, Anesthesia Intra-op Given 12/21/2018 2:00 PM EDT 150 mcg Given 12/21/2018 1:19 PM EDT 100 mcg heparin (porcine) injection 5,000 Units 5,000 Units, subcutaneous, Once, On Thu12/21/18 at 1145, For 1 dose, Intra-Op, Administer prior to induction of anesthesia. Given 12/21/2018 1:26 PM EDT 5,000 Units HYDROmorphone injection (DILAUDID) As needed, Starting on Thu12/21/18 at 1607, Anesthesia Intra-op Given 12/21/2018 4:16 PM EDT 0.5 mg Given 12/21/2018 4:07 PM EDT 0.5 mg lactated ringers 30 mL/hr, intravenous, Continuous, Starting on Thu12/21/18 at 1145, Pre-Op Rate/Dose Verify 12/21/2018 1:16 PM EDT New Bag 12/21/2018 12:03 PM EDT 30 mL/hr 30 mL/hr lidocaine (PF) (cardiac) injection intravenous, As needed, Starting on Thu12/21/18 at 1353, Anesthesia Intra-op Given 12/21/2018 1:27 PM EDT 60 mg midazolam (PF) injection (VERSED) intravenous, As needed, Starting on Thu12/21/18 at 1316, Anesthesia Intra-op Given 12/21/2018 1:16 PM EDT 2 mg NaCl 0.9% infusion intravenous, Continuous Infusion: Per Instructions PRN, Starting on Thu12/21/18 at 1331, Anesthesia Intra-op New Bag 12/21/2018 1:31 PM EDT ondansetron (PF) injection (ZOFRAN) intravenous, As needed, Starting on Thu12/21/18 at 1541, Anesthesia Intra-op Given 12/21/2018 3:41 PM EDT 4 mg phenylephrine injection intravenous, As needed, Starting on Thu12/21/18 at 1331, Anesthesia Intra-op Given 12/21/2018 3:46 PM EDT 100 mcg Given 12/21/2018 1:38 PM EDT 100 mcg Given 12/21/2018 1:31 PM EDT 100 mcg propofol 10 mg/mL infusion (DIPRIVAN) intravenous, Continuous Infusion: Per Instructions PRN, Starting on Thu12/21/18 at 1328, Anesthesia Intra-op Rate/Dose Change 12/21/2018 3:46 PM EDT 75 mcg/kg/min 39.7 mL/hr New Bag 12/21/2018 1:28 PM EDT 100 mcg/kg/min 53 mL/hr propofol injection (DIPRIVAN) intravenous, As needed, Starting on Thu12/21/18 at 1353, Anesthesia Intra-op Given 12/21/2018 1:27 PM EDT 150 mg rocuronium injection (ZEMURON) intravenous, As needed, Starting on Thu12/21/18 at 1327, Anesthesia Intra-op Given 12/21/2018 3:05 PM EDT 10 mg Given 12/21/2018 2:20 PM EDT 20 mg Given 12/21/2018 1:27 PM EDT 60 mg sugammadex injection (BRIDION) As needed, Starting on Thu12/21/18 at 1552, Anesthesia Intra-op Given 12/21/2018 3:52 PM EDT 176.6 mg documented in this encounter
--- OUTSIDE RECORDS SUMMARY | 2024-07-17 10:38 | XMS_ITS | Encounter Summary ---
Author Organization [facility] Address [address] [place] [address] Care Team Providers Care Braddisher Name Role Phone Unavailable Primary Care Provider Unavailabl e Encounter Details Date Type Department Care Team (Late st Contact Info) Description 12/14/2018 4:40 PM EDT Lab [facility]LA [facility] [address] [place] [address] Rose Mary Gutierrez M.D. [address] [place] [address] Malignant Neoplasm Of Uterus Endometrial (HCC) Social [...] Procedure Name Priority Date/Time Associated Diagnosis Comments PATHOLOGY REVIEW OF OUTSIDE MATERIAL Routine 11/25/2018 10:32 AM EDT Malignant Neoplasm Of Uterus Endometrial (HCC) documented in this encounter Results * Pathology Review of Outside Material (11/25/2018 10:32 AM EDT) 12/17/2018 9:08 AM EDT Report electronically signed by Belinda Kowalski M.D. I verify that I have examined all relevant slides/materials for the specimen(s) and rendered or confirmed the diagnosis. 12/17/2018 9:08 AM EDT Material Received [id number]; collected 11/25/2018 Endometrium, 4 slides REFERRING FACILITY: [facility] Department of Pathology [address] [place] [id number] P: F: 12/17/2018 9:08 AM EDT Addendum 12/24/2018 - 15 unstained slides labeled [id number]. MK/amw TEST PERFORMED: Mismatch Repair Protein Immunohistochemistry Tumor Type: Endometrial adenocarcinoma Block: ??[id number] Result: Normal expression of MLH1, MSH2, MSH6, [...] DNA mismatch repair for this individual family. MK/liz CAUTIONS: Test results should be interpreted in context of clinical findings, family history, and other laboratory data. A genetic consultation may be of benefit. Signed by Belinda Kowalski M.D. 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 MARIZA/darrell 12/28/2018 3:06 PM EDT Varies 11/25/2018 10:3 2 AM EDT 12/16/2018 8:48 AM EDT us Rose Mary Gutierrez M.D. LAB SURG PATH ORDERABLES Edited Result - Final [facility] [address] [place] [address], [facility] documented in this encounter Visit Diagnoses Diagnosis Malignant Neoplasm Of Uterus Endometrial (HCC) documented in this encounter
--- OUTSIDE RECORDS SUMMARY | 2024-07-17 10:38 | XMS_ITS | Encounter Summary ---
Author Organization [facility] Address [address] [place] [address] Care Team Providers Care Application Packager Name Role Phone Unavailable Primary Care Provider Unavailabl e Encounter Details Date Type Department Care Team (Latest Contact Info) Description 12/16/2018 6:41 AM EDT - 12/16/2018 11:59 PM EDT Hospital Encounter Department of Laboratory Medicine and Pathology, [facility] in [place], [place] [address] [place] [address] Severino Pierce M.D. [address] [place] [address] Preoperative Exam Discharge Disposition: Home or Self Care Social [...] 12/21/2018 9 documented as of this encounter Plan of Treatment Not on file documented as of this encounter Procedures Procedure Name Priority Date/Time Associated Diagnosis Comments BACTERIAL CULTURE, AEROBIC + SUSC, URINE Routine 12/16/2018 7:12 AM EDT Preoperative Exam URINALYSIS WITH MICROSCOPIC Routine 12/16/2018 7:12 AM EDT Preoperative Exam documented in this encounter Results * (ABNORMAL) Urinalysis with Microscopic: Urine, Midstream (12/16/2018 7:12 AM EDT) Source Voided DEFAULT 12/16/2018 8:01 AM EDT [facility] Glucose Negative Negative mg/dL 12/16/2018 8:01 AM EDT [facility] Ketones Negative Negative 12/16/2018 8:01 AM EDT [facility] Hemoglobin, QL Trace(A) Negative 12/16/2018 8:01 AM EDT [facility] Protein, U Negative Negative mg/dL 12/16/2018 8:01 AM EDT [facility] Nitrite, U Negative Negative 12/16/2018 8:01 AM EDT [facility] Bilirubin Negative Negative 12/16/2018 8:01 AM EDT [facility] Specific [place] 1.021 1.002 - 1.030 12/16/2018 8:01 AM EDT [facility] pH, U 5.5 5.0 - 8.0 12/16/2018 8:01 AM EDT [facility] Urobilinogen Normal Normal 12/16/2018 8:01 AM EDT [facility] Leukocyte Esterase Negative Negative 12/16/2018 8:01 AM EDT [facility] White Blood Cells 2 /hpf 12/16/2018 8:01 AM EDT [facility] Comment: ----REFERENCE VALUE---- Male: 0-3 Female: 0-10 Urine RBC 1 0 - 2 /hpf 12/16/2018 8:01 AM EDT [facility] Squamous Epithelial Present Not Seen 12/16/2018 8:01 AM EDT [facility] Urine (Urine, Midstream) 12/16/2018 7:12 AM EDT 12/16/2018 7:40 AM EDT us Severino Pierce M.D. LAB URINE ORDERABLES Final Re sult Performing Organization Address City/State/[facility] Co de Phone Number [facility] [address] * Bacterial Culture - Urine (12/16/2018 7:12 AM EDT) Urine Culture Mixed cali. 12/17/2018 6:54 AM EDT [facility] Urine (Urine, Midstream) 12/16/2018 7:12 AM EDT 12/16/2018 7:26 AM EDT Comment:Specimen Source Site : Urine us Severino Malavet M.D. LAB MICROBIOLOGY - GENERAL OR DERABLES Final Result [facility] [address] [place] [address], [facility] documented in this encounter Visit Diagnoses Diagnosis Preoperative Exam documented in this encounter
--- OUTSIDE RECORDS SUMMARY | 2024-07-17 10:38 | XMS_ITS | Encounter Summary ---
Author Organization [facility] Address [address] [place] [address] Care Team Providers Care Director Of Sustainable Design Name Role Phone Unavailable Primary Care Provider Unavailabl e Reason for Visit * Reason Onset Date Comments returned call 12/20/2018 Encounter Details Date Type Department Care Team (Late st Contact Info) Description 12/20/2018 Clinical Communication Department of Medical and Surgical Gynecology in [place], [place] [address] [place] [address] Rose Mary Gutierrez M.D. [address] [place] [address] returned call Social History Tobacco Use Types [...] Dental: Regular Dentist 13 12/20/19 19 Comments Unknown Sex and Gender Information Value Date Recorded Sex Assigned at Female 12/09/2018 1:18 PM CDT Legal Sex Female 8:44 AM CDT Gender Identity Female 12/09/2018 1:18 PM CDT Sexual Orientation Straight 12/09/2018 1: 18 PM CDT documented as of this encounter Miscellaneous Notes * Telephone Encounter - Taryn Wright R.N. - 12/20/2018 3:15 PM EDT Called patient, no answer. Her arrival time for surgery tomorrow is 11:30 am. She should check in at the 1st floor of the [facility] at registration. Taryn Diallo * Telephone Encounter - Maryse Spears - 12/20/2018 2:47 PM EDT Patient's returned call documented in this encounter Plan of Treatment Not on file documented as of this encounter Visit Diagnoses Not on filedocumented in this encounter
--- OUTSIDE RECORDS SUMMARY | 2024-07-17 10:38 | XMS_ITS | Encounter Summary ---
Author Organization [facility] Address [address] [place] [address] Care Team Providers Care Manager Civil Name Role Phone Unavailable Primary Care Provider Unavailabl e Reason for Visit * Outpatient (Routine) - Closed Specialty Diagnoses / Procedures Referred By Ryley pantoja Referred To Contact General Surgery Diagnoses Malignant Neoplasm Of Uterus Endometrial (HCC) Rose Mary Gutierrez M.D. [address] [place] [address] Phone: tel: fax: [facility] Referral ID Status Reason Start Date Expiration Date Visits Re quested Visits Authorized [id number] Closed 12/09/2018 12/09/2019 1 1 Encounter Details Date Type Department Care Team (Latest Contact Info) Description 12/16/2018 8:00 AM EDT Comprehensive Visit Preoperative Clinic in [place], [place] [address] [place] [address] Rose Mary Gutierrez M.D. [address] [place] [address] Radha Miller APRN, M.S.N. [address] [place] [address] Preanesthetic Medical Exam (Primary Dx); Malignant Neoplasm Of Uterus Endometrial [...] Sign Reading Time Taken Comments Blood Pressure 137/66 12/16/2018 7:24 AM EDT Pulse 84 12/16/2018 7:24 AM EDT Temperature 36.5 ??C (97.7 ??F) 12/16/2018 7:24 AM ED T Respiratory Rate - - Oxygen Saturation 99% 12/16/2018 7:24 AM EDT Inhaled Oxygen Concentration - - Weight 89.3 kg (196 lb 13.9 oz) 12/16/2018 7:24 AM EDT Height 162 cm (5' 3.78 ) 12/16/2018 7:24 AM EDT Body Mass Index 34.03 12/16/2018 7:24 AM EDT documented in this encounter Patient Instructions * Patient Instructions* Radha Graves APRN, M.S.N. - 12/16/2018 8:00 AM EDT Images from the original note were not included. 1. Do not eat solid foods after midnight. You may drink clear liquids until 2 hours before you come to the hospital. Examples of acceptable liquids are: ??? Water. ??? Soda/pop. ??? Black coffee or tea (No milk or creamer). Sweeteners are allowed. ??? Clear juices like apple or white grape. Avoid juices with pulp such as orange, grapefruit or tomato. ??? Popsicles (avoid red colors). ??? Jell-O (avoid red colors). ??? Alcoholic beverages are not considered clear liquids. If you receive different instructions from your surgeon in preparation for your surgery, please follow them carefully instead. 2. Do not smoke after midnight. 3. Do not take your vitamins or supplements on the morning of surgery. 4. Leave all personal belongings and valuables at home. 5. You must arrange prior to your surgery for a responsible person to take you home and also be available to you while you are at home. This person will need to be able to help you with any post-procedure instructions and/or complications. 6. Prior to leaving the Preoperative Evaluation Clinic you will receive instructions on the medications to take and hold on the day of surgery. 7. On the day of surgery come to the [facility] Registration Desk and you will be directed whereto go for surgery. 8. Stop all NSAIDs like Aleve (naproxen) and Motrin (ibuprofen), multi vitamins, supplements, herbals at least 7 days before surgery. 9. Tylenol (acetaminophen) can be used for pain. Do not take more than 3,000 mg in a 24 hour. Allergy medications are also acceptable, if neededPatient Education Patient Education Preventing Blood Clots in the Veins and Lungs Venous thrombosis occurs when a blood clot develops in one or more of your veins. The blood clot sticks to the wall of the vein and can cause pain, redness, and swelling. Deep vein thrombosis (DVT) happens when a blood clot develops in a deep vein. These clots usually develop in your lower leg, thigh, or pelvis, but they can happen in other large veins in your body. Part or all of a DVT can break off and travel through the veins to your heart. If that happens, your heart can pump the DVT into the lung circulation where it can block an artery in the lung. This iscalled pulmonary embolism. Pulmonary embolism is also known as PE. PE prevents blood flow to the lungs and body. Although more than two million Americans develop blood clots in their veins every year, DVT and PE may be prevented with a few simple steps. This information explains steps that may help to prevent blood clots and identifies symptoms that may warn you of a blood clot. Prevention in the hospital Steps may be taken to help prevent blood clots from forming while you are in the hospital. ?? Blood-thinning medication: If you are at risk for blood clots, you may be given a blood-thinningmedication such as heparin or warfarin. ?? Pneumatic compression: This is a treatment that uses cuffs that inflate every few seconds to massage and compress the veins in your legs. If your health care provider has ordered a sequential compression device to deliver pneumatic compression to your legs, you will be encouraged to wear the compression cuffs at all times while you are in bed or sitting in a chair. Prevention after you leave the hospital Your risk of forming a blood clot or pulmonary embolism is higher than usual for about 3 to 4 weeksafter a hospital stay. To lower your risk: ?? Take all blood-thinning medications exactly as you have been told by your health care provider. ?? Take frequent walks to increase the circulation of blood in your legs. ?? Flex your feet and rotate your ankles to stretch your calf muscles. Prevention while you travel When you sit during a long flight or car ride, you increase your risk of developing blood clots in your legs. To lower your risk: ?? Take a walk around the airplane once every hour or so. If you are driving, stop in a safe place every 1 to 2 hours and walk around the car a few times. ?? Flex your feet and rotate your ankles or press your feet against the seat in front of you. Raiseyour toes up and down. ?? Drink plenty of fluids before and during travel to prevent dehydration. Dehydration may contribute to the development of blood clots. ?? Ask your health care provider whether you should wear compression stockings to help your circulation. When to contact your health care provider Because a DVT or PE can be life threatening, go to the emergency room right away if you have any ofthe symptoms listed below. Symptoms of a DVT An arm or a leg with a DVT may become: ?? Swollen ?? Tender or painful ?? Warm to the touch ?? Reddish-blue or white Symptoms of a blood clot that travels to the lung (PE) ?? Chest pain ?? Difficult or painful breathing ?? Cough (that may produce blood-streaked sputum) ?? Rapid heartbeat ?? Light-headedness ?? Bluish-colored skin, especially around the lips or finger tips ?? Clammy skin or a lot of sweating ?? Fever This material is for your education and information only. This content does not replace medical advice, diagnosis or treatment. New medical research may change this information. If you have questionsabout a medical condition, always talk with your health care provider. ? 2012 [employer] Education and Research ([facility]). All rights reserved. [id number] Surgical Site Infection (SSI) What is a surgical site infection (SSI)? It is an infection that occurs after surgery. Most patients who have surgery do not develop an infection. Symptoms of a surgical site infection are: ?? Temperature of 100.4 degrees Fahrenheit (38 degrees Celsius) or greater. ?? Chills. ?? Increased swelling, tenderness or redness at the site. ?? Increased pain or pain not relieved by pain medications. ?? Drainage or oozing, or bad-smelling odor coming from the site. Can surgical site infections be treated? Most surgical site infections can be treated with antibiotics. The antibiotic given depends on the bacteria causing the infection. Occasionally people who get a surgical site infection may need another surgery to treat it. Ways surgical site infections are prevented in the hospital Health care providers: ?? Clean their hands with soap and water or an alcohol-based hand rub before and after caring for you ?? Give you antibiotics before surgery After your surgery: ?? Make sure that your health care providers clean their hands before examining you, either with soap and water or an alcohol-based hand rub. If you do not see your visitors or health care providers clean their hands, please ask them to do so with soap and water or an alcohol-based hand rub before and after visiting you. ?? Visitors should not touch the surgical wound or dressings. What do I need to do when I go home from the hospital? ?? Before you go home, make sure you understand how to care for your wound and who to contact if you have questions. ?? Always clean your hands before and after caring for your wound. ?? Call your health care provider immediately if you have signs of an infection: ? Temperature of 100.4 degrees Fahrenheit (38 degrees Celsius) or greater. ? Chills. ? Increased swelling, tenderness or redness at the site. ? Increased pain or pain not relieved by pain medications. ? Drainage or oozing, or bad-smelling odor coming from the site. Sources: The Society for Healthcare Epidemiology of [place]; Infectious Diseases Society of [place]; [facility]; Association for Professionals in Infection Control and Epidemiology, Inc.; Centers for Disease Control and Prevention; The Joint Commission This material is for your education and information only. This content does not replace medical advice, diagnosis or treatment. New medical research may change this information. If you have questionsabout a medical condition, always talk with your health care provider. ? 2016 [facility] Medical Education and Research ([facility]). All rights reserved. [id number] documented in this encounter H&P Notes * Radha Graves APRN, M.S.N. - 12/16/2018 8:00 AM EDT Preoperative Medical Evaluation Date: 12/21/2018 Surgery: Robotic-Assisted Hysterectomy With Bilateral Salpingo Oophorectomy, [place] Lymph Node Dissection Surgeon: Rose Mary Gutierrez [...] Graves APRN, M.S.N. documented in this encounter Plan of Treatment Not on file documented as of this encounter Visit Diagnoses Diagnosis Preanesthetic Medical Exam- Primary Malignant Neoplasm Of Uterus Endometrial (HCC) documented in this encounter
--- OUTSIDE RECORDS SUMMARY | 2024-07-17 10:38 | XMS_ITS | Encounter Summary ---
Author Organization [facility] Address [address] [place] [address] Care Team Providers Care Reimbursement Analyst Name Role Phone Unavailable Primary Care Provider Unavailabl e Encounter Details Date Type Department Care Team (Latest Contact Info) Description 12/09/2018 3:50 PM EDT - 12/09/2018 11:59 PM EDT Hospital Encounter Department of Laboratory Medicine and Pathology, [facility] in [place], [place] [address] [place] [address] Rose Mary Gutierrez M.D. [address] [place] [address] Malignant Neoplasm Of Uterus Endometrial (HCC) Discharge Disposition: Home or Self Care Social [...] Procedure Name Priority Date/Time Associated Diagnosis Comments RENAL FUNCTION PANEL, S Routine 12/09/2018 4:00 PM EDT Malignant Neoplasm Of Uterus Endometrial (HCC) CBC WITH DIFFERENTIAL, B Routine 12/09/2018 4:00 PM EDT Malignant Neoplasm Of Uterus Endometrial (HCC) CANCER AG 125 (CA 125), S Routine 12/09/2018 4:00 PM EDT Malignant Neoplasm Of Uterus Endometrial (HCC) THYROID-STIMULATING HORMONE-SENSITIVE (S-TSH) Routine 12/09/2018 4:00 PM EDT Malignant Neoplasm Of Uterus Endometrial (HCC) HEMOGLOBIN A1C, B Routine 12/09/2018 4:0 0 PM EDT Malignant Neoplasm Of Uterus Endometrial (HCC) documented in this encounter Results * Hemoglobin A1c (12/09/2018 4:00 PM EDT) Hemoglobin A1c, B 5.4 4.0 - 5.6 % 12/09/2018 4:14 PM EDT [facility] Estimated Average Glucose 108 mg/dL 12/09/2018 4:14 PM EDT [facility] Comment: ----REFERENCE VALUE---- Adult reference intervals (>=18 yrs) for HbA1c Estimated Average Glucose are: Normal: ??68-114 mg/dL Increased risk for diabetes (prediabetes): ??115-139 mg/dL Diabetes: ??>=140 mg/dL Blood (Blood, Venous) 12/09/2018 4:00 PM EDT 12/09/2018 4:07 PM EDT Rose Mary Gutierrez M.D. LAB BLOOD ADD-ON Final Result Performing Organization Address [facility] de Phone Number [facility] [address] * S-TSH (Thyroid-Stimulating Hormone - Sensitive) (12/09/2018 4:00 PM EDT) Pathologist [facility] TSH, Sensitive 1.7 0.3 - 4.2 mIU/L 12/09/2018 4:50 PM EDT [facility] Comment: Patients consuming high dose biotin supplements can have analytical interference in this assay. ??If such interference is present it will yield falsely low results. If results are inconsistent with patient presentation please rule out biotin consumption by the patient. Blood (Blood, Venous) 12/09/2018 4:00 PM EDT 12/09/2018 4:07 PM EDT Tri A Matt M.D. LAB BLOOD ADD-ON Final Result Performing Organization Address [facility] Co de Phone Number [facility] [address] * Cancer Antigen 125 (CA 125) (12/09/2018 4:00 PM EDT) Pathologist [facility] Cancer Ag 125 (CA 125), S 15 <46 U/mL 12/09/2018 4:50 PM EDT [facility] Comment: Patients consuming high dose biotin supplements can have analytical interference in this assay. ??If such interference is present it will yield falsely Low results. If results are inconsistent with patient presentation please rule out biotin consumption by the patient. ----ADDITIONAL INFORMATION---- The testing method is an electrochemiluminescence assay manufactured by [employer] and performed on the Rajeev system. Values obtained with different assay methods or kits may be different and cannot be used interchangeably. Test results cannot be interpreted as absolute evidence for the presence or absence of malignant disease. Blood (Blood, Venous) 12/09/2018 4:00 PM EDT 12/09/2018 4:07 PM EDT Rose Mary Gutierrez M.D. LAB BLOOD ADD-ON Final Result [facility] [address] [place] [address], [place] * Renal Function Panel (12/09/2018 4:00 PM EDT) [facility] Potassium, P 3.8 3.6 - 5.2 mmol/L 12/09/2018 4:43 PM EDT [facility] Sodium, P 141 135 - 145 mmol/L 12/09/2018 4:43 PM EDT [facility] Chloride, P 103 98 - 107 mmol/L 12/09/2018 4:43 PM EDT [facility] Bicarbonate, P 27 22 - 29 mmol/L 12/09/2018 4:43 PM EDT [facility] Anion Gap, P 11 7 - 15 12/09/2018 4:43 PM EDT [facility] BUN (Blood Urea Nitrogen), P 11 6 - 21 mg/dL 12/09/2018 4:43 PM EDT [facility] Creatinine 0.76 0.59 - 1.04 mg/dL 12/09/2018 4:43 PM EDT [facility] eGFR-Black/Afri can [place] >90 >=60 mL/min/BSA 12/09/2018 4:43 PM EDT [facility] Comment: ----ADDITIONAL INFORMATION---- Estimated GFR calculated using the 2009 CKD_EPI creatinine equation. eGFR Non-Black/Afric an [place] 81 >=60 mL/min/BSA 12/09/2018 4:43 PM EDT [facility] Comment: ----ADDITIONAL INFORMATION---- Estimated GFR calculated using the 2009 CKD_EPI creatinine equation. Calcium, Total, P 9.5 8.8 - 10.2 mg/dL 12/09/2018 4:43 PM EDT [facility] Glucose, P 95 70 - 140 mg/dL 12/09/2018 4:43 PM EDT [facility] Albumin, P 4.3 3.5 - 5.0 g/dL 12/09/2018 4:43 PM EDT [facility] Phosphorus (Inorganic), P 3.6 2.5 - 4.5 mg/dL 12/09/2018 4:43 PM EDT [facility] Blood (Blood, Venous) 12/09/2018 4:00 PM EDT 12/09/2018 4:07 PM EDT Rose Mary Gutierrez M.D. LAB BLOOD ADD-ON Final Result [facility] [address] [place] [address], [place] * (ABNORMAL) CBC with Differential, Blood (12/09/2018 4:00 PM EDT) Leukocytes 8.5 3.4 - 9.6 x10(9)/L 12/09/2018 4:10 PM EDT [facility] Erythrocytes 4.59 3.92 - 5.13 x10(12)/L 12/09/2018 4:10 PM EDT [facility] Hemoglobin 13.6 11.6 - 15.0 g/dL 12/09/2018 4:10 PM EDT [facility] Hematocrit 41.6 35.5 - 44.9 % 12/09/2018 4:10 PM EDT [facility] MCV 90.6 78.2 - 97.9 fL 12/09/2018 4:10 PM EDT [facility] MCH 29.6 25.4 - 32.7 pg 12/09/2018 4:10 PM EDT [facility] MCHC 32.7 31.3 - 34.7 g/dL 12/09/2018 4:10 PM EDT [facility] RDW CV 14.1 12.2 - 16.1 % 12/09/2018 4:10 PM EDT [facility] RDW SD 47.6(H) 36.4 - 46.3 fL 12/09/2018 4:10 PM EDT [facility] Platelet Count 331 157 - 371 x10(9)/L 12/09/2018 4:10 PM EDT [facility] Mean Platelet Volume 9.4 7.4 - 10.9 fL 12/09/2018 4:10 PM EDT [facility] Neutrophils % 64.8 50.0 - 75.0 % 12/09/2018 4:10 PM EDT [facility] Immature Granulocytes % 0.2 0.0 - 3.0 % 12/09/2018 4:10 PM EDT [facility] Lymphocytes % 24.5 18.0 - 42.0 % 12/09/2018 4:10 PM EDT [facility] Monocytes % 8.5 2.0 - 11.0 % 12/09/2018 4:10 PM EDT [facility] Eosinophils % 1.3 1.0 - 3.0 % 12/09/2018 4:10 PM EDT [facility] Basophils % 0.7 0.0 - 2.0 % 12/09/2018 4:10 PM EDT [facility] Neutrophils 5.52 1.56 - 6.45 x10(9)/L 12/09/2018 4:10 PM EDT [facility] Lymphocytes 2.09 0.95 - 3.07 x10(9)/L 12/09/2018 4:10 PM EDT [facility] Monocytes 0.72 0.26 - 0.81 x10(9)/L 12/09/2018 4:10 PM EDT [facility] Eosinophils 0.11 0.03 - 0.48 x10(9)/L 12/09/2018 4:10 PM EDT [facility] Basophils 0.1 0.0 - 0.1 x10(9)/L 12/09/2018 4:10 PM EDT [facility] Blood (Blood, Venous) 12/09/2018 4:00 PM EDT 12/09/2018 4:07 PM EDT Rose Mary Gutierrez M.D. LAB BLOOD ADD-ON Final Result [facility] [address] [place] [address], [place] documented in this encounter Visit Diagnoses Diagnosis Malignant Neoplasm Of Uterus Endometrial (HCC) documented in this encounter
--- OUTSIDE RECORDS SUMMARY | 2024-07-17 10:38 | XMS_ITS | Encounter Summary ---
Author Organization [facility] Address [address] [place] [address] Care Team Providers Care Carrier Driver Name Role Phone Unavailable Primary Care Provider Unavailabl e Encounter Details Date Type Department Care Team (Late st Contact Info) Description 12/14/2018 Clinical Communication Preoperative Clinic in [place], [place] [address] [place] [address] Cadence Garcia, L.P.N. Social History Tobacco Use Types Packs/Day Years [...] documented as of this encounter Results * (ABNORMAL) Urinalysis with Microscopic: Urine, Midstream (12/16/2018 7:12 AM EDT) Source Voided DEFAULT 12/16/2018 8:01 AM EDT [facility] Glucose Negative Negative mg/dL 12/16/2018 8:01 AM EDT [facility] Ketones Negative Negative 12/16/2018 8:01 AM EDT [facility] Hemoglobin, QL Trace(A) Negative 12/16/2018 8:01 AM EDT [facility] Protein, U Negative Negative mg/dL 12/16/2018 8:01 AM EDT [facility] Nitrite, U Negative Negative 12/16/2018 8:01 AM EDT [facility] Bilirubin Negative Negative 12/16/2018 8:01 AM EDT [facility] Specific [place] 1.021 1.002 - 1.030 12/16/2018 8:01 AM EDT [facility] pH, U 5.5 5.0 - 8.0 12/16/2018 8:01 AM EDT [facility] Urobilinogen Normal Normal 12/16/2018 8:01 AM EDT [facility] Leukocyte Esterase Negative Negative 12/16/2018 8:01 AM EDT [facility] White Blood Cells 2 /hpf 12/16/2018 8:01 AM EDT [facility] Comment: ----REFERENCE VALUE---- Male: 0-3 Female: 0-10 Urine RBC 1 0 - 2 /hpf 12/16/2018 8:01 AM EDT [facility] Squamous Epithelial Present Not Seen 12/16/2018 8:01 AM EDT [facility] Urine (Urine, Midstream) 12/16/2018 7:12 AM EDT 12/16/2018 7:40 AM EDT us Severino Pierce M.D. LAB URINE ORDERABLES Final Re sult Performing Organization Address [facility]/ZIP Co de Phone Number [facility] [address] * Bacterial Culture - Urine (12/16/2018 7:12 AM EDT) Urine Culture Mixed cali. 12/17/2018 6:54 AM EDT [facility] Urine (Urine, Midstream) 12/16/2018 7:12 AM EDT 12/16/2018 7:26 AM EDT Comment:Specimen Source Site : Urine us Severino Pierce M.D. LAB MICROBIOLOGY - GENERAL OR DERABLES Final Result [facility] [address] [place] [id number], [facility] * ECG 12 Lead (12/16/2018 6:28 AM EDT) Ventricular Rate ECG/Min 79 BPM MUSE NH Interval 148 ms MUSE QRSD Interval 90 ms MUSE QT Interval 390 ms MUSE QTC Interval 447 ms MUSE P [place] 37 degrees MUSE R [place] 33 degrees MUSE T Wave [place] 58 degrees MUSE 12/16/2018 6:28 AM EDT 12/16/2018 7:35 AM EDT Impressions MUSE - 12/16/2018 7:35 AM EDT Normal sinus rhythm Normal ECG No previous ECGs available Narrative Procedure Note Josefa Alvarado M.D. - 12/16/2018 IMPRESSION: Normal sinus rhythm Normal ECG No previous ECGs available Severino Pierce M.D. ECG ORDERABLES Final Result MUSE NA documented in this encounter Visit Diagnoses Diagnosis Preoperative Exam- Primary documented in this encounter
--- OUTSIDE RECORDS SUMMARY | 2024-07-17 10:38 | XMS_ITS | Encounter Summary ---
Author Organization [facility] Address [address] [place] [address] Care Team Providers Care Stick Puller Name Role Phone Unavailable Primary Care Provider Unavailabl e Encounter Details Date Type Department Care Team (Late st Contact Info) Description 01/17/2019 Orders Only Department of Radiation Oncology in [place], [place] [address] [facility] [place] [address] Tania Townsend M.D. Malignant Neoplasm Of Uterus Endometrial (HCC) (Primary [...] than three times a week 01/17/2019 Attends [employer] Services Patient declined 07/2018 Active Member of [...] Living Expenses Not hard at all 01/17/2019 [employer] [place] of Occupat ional Health - Occupational Stress [...] as of this encounter Plan of Treatment Scheduled Orders Name Type Priority Associated Diagnoses Orde r Schedule Prior Auth Rad Tx Radiation Oncology Routine Malignant Neoplasm Of Uterus Endometrial (HCC) Ordered: 01/17/2019 documented as of this encounter Results * Brachytherapy HDR (01/28/2019 8:40 AM EDT) Narrative YOSHI DOBSON - 01/28/2019 8:40 AM EDT Tania Townsend M.D. ? 01/28/2019 ??5:53 PM Brachytherapy HDR Date/Time: 01/28/2019 8:40 AM Performed by: Tania Townsend M.D. Authorized by: Tania Townsend M.D. us Tania Townsend M.D. RADIATION ONCOLOGY ORDERAB LES Final Result YOSHI DOBSON na * Brachytherapy HDR (01/26/2019 8:27 AM EDT) Narrative YOSHI DOBSON - 01/26/2019 8:27 AM EDT Tania Townsend M.D. ? 01/26/2019 10:36 AM Brachytherapy HDR Date/Time: 01/26/2019 8:27 AM Performed by: Tania Townsend M.D. Authorized by: Tania Townsend M.D. us Tania Townsend M.D. RADIATION ONCOLOGY ORDERAB LES Final Result YOSHI DOBSON na * Brachytherapy HDR (01/24/2019 1:21 PM EDT) Narrative YOSHI DOBSON - 01/24/2019 1:21 PM EDT Tania Townsend M.D. ? 01/24/2019 ??1:22 PM Brachytherapy HDR Date/Time: 01/24/2019 1:21 PM Performed by: Tania Townsend M.D. Authorized by: Tania Townsend M.D. us Tania Townsend M.D. RADIATION ONCOLOGY ORDERAB LES Final Result Performing Organization Address City/[facility] Co de Phone Number YOSHI DOBSON na * Brachytherapy Sim (01/21/2019 2:48 PM EDT) [...] Malignant Neoplasm Of Uterus Endometrial (HCC)- Primary Malignant Neoplasm Of Uterus Endometrial (HCC) Malignant Neoplasm Of Uterus Endometrial (HCC) Vaginitis Yeast- Primary Malignant Neoplasm Of Uterus Endometrial (HCC) Malignant Neoplasm Of Uterus Endometrial (HCC) documented in this encounter
--- OUTSIDE RECORDS SUMMARY | 2024-07-17 10:38 | XMS_ITS | Encounter Summary ---
Author Organization [facility] Address [address] [place] [address] Care Team Providers Care Canteen Operator Name Role Phone Unavailable Primary Care Provider Unavailabl e Reason for Referral * Outpatient (Routine) - Closed Specialty Diagnoses / Procedures Referred By Ryley pantoja Referred To Contact Obstetrics and Gynecology Inna Turner, P.A.-C. [address] [place] [address] Phone: tel: fax: [facility] Referral ID Status Reason Start Date Expiration Date Visits Re quested Visits Authorized [id number] Closed 01/21/2019 01/21/2020 1 1 Scheduling Instructions Madelyn Keith for Survivorship Reason for Visit * Reason Comments Post-op Visit no complaints * Outpatient (Routine) - Canceled Specialty Diagnoses / Procedures Referred By Ryley pantoja Referred To Contact Obstetrics and Gynecology Diagnoses Malignant Neoplasm Of Uterus Endometrial (HCC) Jose Maria Farah M.D. [address] [place] [address] Phone: tel: fax: [facility] Referral ID Status Reason Start Date Expiration Date V isits Requested Visits Authorized [id number] Canceled 12/22/2018 12/22/2019 1 1 Encounter Details Date Type Department Care Team (Late st Contact Info) Description 01/21/2019 11:30 AM EDT Office Visit Department of Medical and Surgical Gynecology in [place], [place] [address] [facility] [place] [address] Inna Turner P.A.-Theron. [address] [place] [address] Malignant Neoplasm Of Uterus Endometrial [...] than three times a week 01/17/2019 Attends [employer] Services Patient declined 07/2018 Active Member of [...] Living Expenses Not hard at all 01/17/2019 [facility] [place] of Occupat ional Health - Occupational Stress [...] Dental Answer Date Recorded Dental: Regular Dentist 01/18/20 19 Education Answer Date Recorded What [...] Pressure - - Pulse - - Temperature 36.7 ??C (98.1 ??F) 01/21/2019 11:11 AM E DT Respiratory Rate - - Oxygen Saturation - - Inhaled Oxygen Concentration - - Weight - - Height - - Body Mass Index - - documented in this encounter Progress Notes * Inna Turner, Cheyanne-C. - 01/21/2019 11:30 AM EDT Station Examiner present for exam: Teodora Sanon [facility] GYN[facility] SURG[facility] POSTOPERATIVE VISIT SUBJECTIVE Claudia Desai is a 68 y.o. female patient of Rose Mary Gutierrez MD who presents today for her 4 week postoperative visit. She is status post surgery 12/21/18: Procedure(s) (LRB): Robotic-Assisted Hysterectomy With Bilateral Salpingo Oophorectomy, [place] Lymph Node mapping anddissection (N/A) ?? Surgeon(s) and Role: * Rose Mary Gutierrez M.D. - Primary * Ang Hilliard M.D. - Heel Former. 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 Patient reports doing well postop. She denies any current pain, voiding dysfunction or difficulty with bowels. Denies dysuria, frequency or incomplete bladder emptying. No complaints of vaginal spotting, discharge or itching. REVIEW OF SYSTEMS Negative except those noted in current and interim history OBJECTIVE PHYSICAL EXAMINATION GENERAL: Well-developed female in no acute distress. There were no vitals filed for this visit. ABDOMEN: Soft, nontender. No masses. Incisions well healed, no hernia appreciated. PELVIC: EG/BUS: No lesions. Normal urethra. Speculum exam reveals well-supported vaginal cuff. No dehiscence, blood or discharge. Palpably normal on bimanual exam without fluctuance or indurance. ASSESSMENT / PLAN ASSESSMENT 68 y.o. FEMALE 4 WEEKS STATUS POST robotic assisted hysterectomy with BSO in sentinel lymph node dissection for an endometrial carcinoma grade 1 stage IB. PLAN Patient is an appointment today with Dr. Woody Radiation Oncology and has been pre scheduled for 3vaginal brachytherapy treatments January 24, and . She will return in 3 months after completion of brachytherapy for cancer surveillance in the radiologist chief of breast imaging survivorship clinic. She was advised on lifting restrictions and pelvic rest for a full 8 weeks. Questions answered. She was advised to contact the office with any acute gynecologic concerns. documented in this encounter Plan of Treatment Scheduled Referrals Name Type Priority Associated Diagnoses Order Schedule Obstetrics and Gynecology office visit (clinic) Outpatient Referral Routine Expected: 05/02/2019 (Approximate), Expires: 01/21/2022 documented as of this encounter Procedures Procedure Name Priority Date/Time Associated Diagnosis Comments OBSTETRICS AND GYNECOLOGY POST OP (CLINIC) Routine 01/21/2019 11:38 AM EDT Malignant Neoplasm Of Uterus Endometrial (HCC) documented in this encounter Results * Obstetrics and Gynecology Post Op (clinic) (01/21/2019 11:38 AM EDT) Donn Hilliard M.D. OUTPATIENT RETURN VISITS Fi nal Result documented in this encounter Visit Diagnoses Diagnosis Malignant Neoplasm Of Uterus Endometrial (HCC) documented in this encounter
--- OUTSIDE RECORDS SUMMARY | 2024-07-17 10:38 | XMS_ITS | Encounter Summary ---
Author Organization [facility] Address [address] [place] [address] Care Team Providers Care Funeral Director And Embalmer Name Role Phone Unavailable Primary Care Provider Unavailabl e Encounter Details Date Type Department Care Team (Late st Contact Info) Description 12/21/2018 1:10 PM EDT - 12/21/2018 4:55 PM EDT Surgery [facility] [address] OR [address] [place] [address] Rose Mary Gutierrez M.D. [address] [place] [address] Robotic-Assisted Hysterectomy With Bilateral Salpingo Oophorectomy, [place] Lymph Node mapping and dissection Social History Tobacco Use Types Packs/Day Years [...] Sign Reading Time Taken Comments Blood Pressure 146/65 12/21/2018 4:55 PM EDT Pulse 62 12/21/2018 4:55 PM EDT Temperature 36.1 ??C (97 ??F) 12/21/2018 4:20 PM EDT Respiratory Rate 11 12/21/2018 4:55 PM EDT Oxygen Saturation 100% 12/21/2018 4:55 PM EDT Inhaled Oxygen Concentration - - Weight 88.3 kg (194 lb 10.7 oz) 019 11:55 AM EDT Height 162 cm (5' 3.78 [...] vaginal bleeding or vulvar edema I/O 12/20 07 - 12/21 0700 12/21 07 - 12/22 0712/22 0701 - 12/23 0700 P.O. 660 Maintenance IV [...] Surgery: Robotic-Assisted Hysterectomy With Bilateral Salpingo Oophorectomy, [place] Lymph Node Dissection Surgeon: Rose Mary Gutierrez [...] management up until surgery Radha Graves APRN, M.S.NRebeca documented in this encounter Consult Notes * Samreen Cisneros R.N. - 12/22/2018 9:19 AM EDT Chart reviewed for transition planning S/P robotic assisted hysterectomy, BSO for endometrial CA OP status Pts DC written for today Pt resides in [place] with spouse Pt independent with ADL prior to this admission No DC needs identified at this time CM services remain available if needs arise DC code: 1 documented in this encounter Nursing Notes * Elise Hudson R.N. - 12/22/2018 9:37 AM EDT Shift Goals: [...] (LRB): Robotic-Assisted Hysterectomy With Bilateral Salpingo Oophorectomy, [place] Lymph Node mapping anddissection (N/A) Surgeon(s) and Role: * Rsoe Mary Gutierrez M.D. - Primary * Ang Hilliard M.D. - Accountant Machine Processing ANESTHESIA TYPE General PRE-OPERATIVE DIAGNOSIS Endometrial Cancer [...] multiple times per giving sodium fluorescein. ?? [place] lymph nodes: - right sentinel lymph node: [...] cervix at 3 and 9 o'clock. A [employer]stream- iOmando uterine manipulator was placed in the usual [...] robotic ports (one of them used as assistant oceanographer port) were placed under direct vision. At [...] mapped to the area as noted previously. ??[place] lymph node dissection was then done. ??The [...] the vagina over the cup of the [employer] uterine manipulator. ??The specimen, which is the [...] : Pelvic washings Fluid Peritoneal Fluid CYTOLOGY NON-PANEL MACHINE SETTER Rose Mary Gutierrez M.D. 12/21/2018 1419 B : Left Obturator sentinel lymph node Tissue Lymph Node, [place] [facility] Rose Mary Gutierrez M.DRebeca 12/21/2018 1425 C : Right external [place] Lymph node Tissue Lymph Node, [place] [facility], [facility] Rose Mary Gutierrez M.DRebeca 12/21/2018 1444 D : uterus, cervix, bilateral fallopian tubes and ovaries Tissue Uterus SUR[facility]ICAL [facility]OLOGY, [facility] Rose Mary Gutierrez M.DRebeca 12/21/2018 1512 E : right pelvic lymph nodes Tissue Lymph Node SURGICAL PATHOLOGY, [facility] Rose Mary Gutierrez M.DRebeca 12/21/2018 1521 DRAINS GI Tubes (Adults) Orogastric [...] (LRB): Robotic-Assisted Hysterectomy With Bilateral Salpingo Oophorectomy, [place] Lymph Node mapping anddissection (N/A) Surgeon(s) and Role: * Rose Mary Gutierrez M.D. - Primary * Ang Hilliard M.D. - Accountant Machine Processing Anesthesia Type: General Pre-Operative Diagnosis: Endometrial Cancer Brief Operative Note Details Specimens ID Type Source Tests Collected by Time A : Pelvic washings Fluid Peritoneal Fluid CYTOLOGY NON-PANEL MACHINE SETTER Rose Mary Gutierrez M.D. 12/21/2018 1419 B : Left Obturator sentinel lymph node Tissue Lymph Node, [place] [facility], [facility] Rose Mary Gutierrez M.D. 12/21/2018 1425 C : Right external [place] Lymph node Tissue Lymph Node, [place] SUR[facility]Y, [facility] Rose Mary Gutierrez M.D. 12/21/2018 1444 D : uterus, cervix, bilateral fallopian tubes and ovaries Tissue Uterus SURGICAL PATHOLOGY, [facility] Rose Mary Gutierrez M.D. 12/21/2018 1512 E : right pelvic lymph nodes Tissue Lymph Node SURGICAL PATHOLOGY, [facility] Rose Mary Gutierrez M.D. 12/21/2018 1521 Drains GI Tubes (Adults) Orogastric [...] Mary Gutierrez MD Gynecologic Oncology and Surgery [facility], [place] [address] I have courtesy copied the patient on [...] LAB STAT 12/21/2018 2:44 PM EDT CYTOLOGY NON-PANEL MACHINE SETTER Routine 12/21/2018 2:19 PM EDT TYPE AND [...] M.D. LAB BLOOD ADD-ON Final Resu lt [facility] [address] [place] [address], [facility] * BMP (Basic Metabolic Panel) [...] mg/dL 12/22/2018 6:50 AM EDT eGFR-Black/Afric an Mosotho >90 >=60 mL/min/BSA 12/22/2018 6:50 AM EDT Comment: ----ADDITIONAL INFORMATION---- Estimated GFR calculated using the 2009 CKD_EPI creatinine equation. eGFR Non-Black/Hope n Mosotho >90 >=60 mL/min/BSA 12/22/2018 6:50 AM EDT Comment: ----ADDITIONAL INFORMATION---- Estimated GFR calculated using the 2009 CKD_EPI creatinine equation. Calcium, Total, P 9.4 8.8 - 10.2 mg/dL 12/22/2018 6:50 AM EDT Glucose, P 136 70 - 140 mg/dL 12/22/2018 6:50 AM EDT Blood (Blood, Venous) 12/22/2018 5:50 AM EDT 12/22/2018 6:09 AM EDT us Donn Hilliard M.D. LAB BLOOD ADD-ON Final Resu lt [facility] [address] [place] [address], [facility] * Surgical Pathology, [facility] [...] parenchyma with focal pale mcintosh areas. A accounting representative section from the left adnexum to [...] of hemorrhage or necrosis are identified. Additional accounting representative sections are submitted as follows: [id number] [...] specimens are submitted intact into cassette D1. CECILIA/liz 12/23/2018 2:18 PM EDT Intraoperative Preliminary Diagnosis [...] 12/23/2018 2:18 PM EDT Tissue (Lymph Node, [place]) 12/21/2018 2:44 PM EDT Tissue (Uterus) 12/21/2018 3 :12 PM EDT Tissue (Lymph Node) 12/21/2018 3:21 PM EDT us Rose Mary Gutierrez M.D. LAB SURG PATH ORDERABLES Final R esult [facility] [address] [place] [address], [facility] * Cytology Non-PANEL MACHINE SETTER (12/21/2018 2:19 PM EDT) Gross Description Received [...] LAB SURG PATH ORDERABLES Final R esult Performing Organization Address [facility] Co de Phone Number [facility] [address] * Type and Screen (with reflex Antibody ID) (12/21/2018 12:51 PM EDT) ABO Group O 12/21/2018 1:55 PM EDT Rh Type NEG 12/21/2018 1:55 PM EDT Antibody Screen NEG 9 1:55 PM EDT Type & Screen Expiration 12/24/2018 23:59 12/21/2018 1:55 PM EDT ELXM Eligible Y 12/21/2018 1:55 PM EDT Blood (Blood, Venous) 12/21/2018 12:51 PM EDT 12/21/2018 1:05 PM EDT Narrative [facility] - 12/21/2018 1:55 PM EDT Specimen Information: Specimen ID: [id number] Specimen Type: Blood Specimen Collection Start Date: 12/21/2018 12:51 PM Specimen Received Date: 12/21/2018 ??1:05 PM Specimen ID: [id number] Specimen Type: Blood Specimen Collection Start Date: 12/21/2018 12:51 PM Specimen Received Date: 12/21/2018 ??1:05 PM us Inna Turner P.A.-C. LAB BLOOD BANK TEST OR DERABLES Final Result Performing Organization Address [facility] Co de Phone Number [facility] [address] documented in this encounter Visit Diagnoses Not [...] Given 12/21/2018 4:47 PM EDT 0.5 mg indocyanine green injection (IC-GREEN) As needed, Starting on Thu12/21/18 at 1401, Intra-Op Given 12/21/2018 2:01 PM EDT 3 mg Other ketorolac injection 15 mg (TORADOL) 15 mg, [...] 8:23 PM EDT 40 mL/hr 40 mL/hr ropivacaine (PF) 5 mg/mL (0.5 %) injection (NAROPIN) As needed, Starting on Thu12/21/18 at 1405, Intra-Op Given 12/21/2018 2:05 PM EDT 10 mL Abdominal Tissue sennosides-docusate sodium 8.6-50 mg per tablet 1 [...] hours. 2024 (Given - Provider: Patricia Schwartz R.N.) 0233 (Given - Provider: Patricia Schwartz R.N.)0835 (Given - Provider: Elise Hudson R.N.) atenolol tablet 25 mg (TENORMIN) 25 mg, [...] 1333 (Given - Provider: Flako Barraza APRN, OSHA INSPECTOR) famotidine injection 20 mg (PEPCID) 20 mg, [...] 132 (Given - Provider: Flako Barraza APRN, OSHA INSPECTOR) heparin (porcine) injection 5,000 Units 5,000 Units, [...] recommended for IV. 1710 (Given - Provider: Rogelio Mireles R.N.) magnesium hydroxide suspension 30 mL (MILK OF MAGNESIA) 30 mL, oral, 2 times daily, First dose on Thu12/21/18 at 2100, Starting evening of surgery. After first bowel movement discontinue Magnesium hydroxide. 2021 (Not Given - Provider: Patricia Schwartz R.N. - Reason: Patient/family refused) 0836 (Not Given - Provider: Elise Hudson R.N. - Reason: Patient/family refused) sennosides-docusate sodium [...] 2100 2024 (Given - Provider: Patricia Schwartz RSammi) 0835 (Given - Provider: Elise Hudson RSammi) Continuous Medication Order 12/20/2018 12/21/2018 12/22/2018 lactated ringers (CANCELED) 30 mL/hr, intravenous, Continuous, Starting on Thu12/21/18 at 1145, Pre-Op 1203 (New Bag - Provider: Michelle Jones, R.N.)1316 (Rate/Dose Verify - Provider: Flako Barraza EMPLOYMENT EVALUATOR/CASE MANAGER, OSHA INSPECTOR)1611 (Anesthesia Volume Adjustment - Provider: Anahi Ulrich APRN, OSHA INSPECTOR) potassium chloride 20 mEq in NaCl 0.45 % infusion 40 mL/hr, intravenous, Continuous, Starting on Thu12/21/18 at 1815 2022 (New Bag - Provider: Patricia Schwartz R.NRebeca)2200 (Rate/Dose Verify - Provider: Patricia Schwartz R.N.) [...] Pain 1647 (Given - Provider: Rogelio Mireles RRebecaN.)1656 (Given - Provider: Rogelio Mireles R.N.) indocyanine green injection (IC-GREEN) (CANCELED) As needed, Starting on Thu12/21/18 at 1401, Intra-Op 1401 (Given - Provider: Ang Hilliard M.D. - Comment: cervical injection) labetalol injection 5 mg (NORMODYNE,TRANDATE) 5 mg, intravenous, Every 6 hours PRN, high blood pressure, BP >160/110, if after two doses it is not controlled please contact pt regulation supervisor, Starting on Thu12/21/18 at 1804 lidocaine (PF) [...]
--- OUTSIDE RECORDS SUMMARY | 2024-07-17 10:38 | XMS_ITS | Encounter Summary ---
Author Organization [facility] Address [address] [place] [address] Care Team Providers Care Pan Puller Name Role Phone Unavailable Primary Care Provider Unavailabl e Encounter Details Date Type Department Care Team (Late st Contact Info) Description 12/22/2018 Clinical Communication Department of Medical and Surgical Gynecology in [place], [place] [address] [place] [address] Jose Maria Farah M.D. [address] [place] [address] Social History Tobacco Use Types [...] encounter Miscellaneous Notes * Telephone Encounter - Jose Maria Farah M.D. - 12/22/2018 11:29 AM EDT Please change the postop visit for this patient: she needs to see Inna Turner, not Dr. Matt dorsey 6w check. Thanks, Jose Maria Farah MD, fellow Minimally Invasive Gynecologic Surgery documented in this encounter Plan of Treatment Not on file documented as of this encounter Visit Diagnoses Not on filedocumented in this encounter
--- OUTSIDE RECORDS SUMMARY | 2024-07-17 10:39 | XMS_ITS | Encounter Summary ---
Author Organization [facility] [place] [facility] Address [address] [place] [address] Care Team Providers Care Private Duty Rn Name Role Phone Unavailable Primary Care Provider Unavailabl e Reason for Referral * Outpatient (Routine) - Closed Specialty Diagnoses / Procedures Referred By Ryley pantoja Referred To Contact General Surgery Diagnoses Malignant Neoplasm Of Uterus Endometrial (HCC) Rose Mary Gutierrez M.D. [address] [place] [address] Phone: tel: fax: [facility] Referral ID Status Reason Start Date Expiration Date Visits Re quested Visits Authorized [id number] Closed 12/09/2018 12/09/2019 [address] Gutierrez 12/21/2018 Reason for Visit * Reason Comments Consult * Appointment Request (Routine) - Closed Specialty Diagnoses / Procedures Referred By Ryley pantoja Referred To Contact Gynecology Abbie Rudd M.D. [address] [place] [id number] Phone: tel: fax: Referral ID Status Reason Start Date Expiration Date Visits Re quested Visits Authorized [id number] Closed 12/02/2018 12/02/2019 1 1 Encounter Details Date Type Department Care Team (Latest Contact Info) Description 12/09/2018 3:00 PM EDT Comprehensive Visit Department of Medical and Surgical Gynecology in [place], [place] [address] [place] [address] Rose Mary Gutierrez M.D. [address] [place] [address] Malignant Neoplasm Of Uterus Endometrial (HCC) (Primary Dx); Bleeding Postmenopausal Social History Tobacco Use Types Packs/Day Years [...] Sign Reading Time Taken Comments Blood Pressure 147/84 12/09/2018 2:47 PM EDT Pulse 84 12/09/2018 2:47 PM EDT Temperature 36.6 ??C (97.9 ??F) 12/09/2018 2:47 PM ED T Respiratory Rate - - Oxygen Saturation - - Inhaled Oxygen Concentration - - Weight 88.4 kg (194 lb 14.2 oz) 12/09/2018 2:47 PM EDT Height 164 cm (5' 4.57 ) 12/09/2018 2:47 PM EDT Body Mass Index 32.87 12/09/2018 2:47 PM EDT documented in this encounter Consult Notes * Rose Mary Gutierrez M.D. - 12/09/2018 3:00 PM EDT REFERRING PROVIDER bAbie Rudd M.D. REASON FOR VISIT Consult HISTORY OF PRESENT CONDITION Ms. Desai is a 68 y.o., menopause age 51, No HRT, who presents in consultation at the request of Abbie Rudd M.D. for an opinion regarding endometrial cancer. Had evaluation of bladder, Pap negative. VB x on and off since July 2018. A pelvic ultrasound was done of September 01, 2018 showing the uterus measures 7.7 x 2.3 x 3.2 cm. The endometrial stripe was 4 mm. There is a mean 8 x 7 mm hypo echogenic focus without shadowing located adjacent to the endometrium in the midbody. Bilateral ovaries were not visualized. An endometrial biopsy in the office was done on November 30, 2018. 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 Some cramping every now and then. Other evaluation included a CT of the chest abdomen and pelvis. There is no evidence of metastatic disease in the retroperitoneum or in the chest, by my reading. The following portions of the patient's history were reviewed and updated as appropriate: allergies, current medications, family history, medical history, social history, surgical history and problemlist. Pertinent History includes the following: PMH: HTN on meds. The patient does not have Diabetes. She denies history of myocardial infarction or stroke. She denies issues with her heart lungs kidneys or liver. PSH: tonsils, D&C Social History: The patient does not currently smoke, use alcohol excessively, or any illicit drugs. Lives with in [place], [place] OB History: [employer] History: normal and UTD Health Maintenance: Colonoscopy: 3-4 years normal Mammography: UTD and due in December 2018 FAMILY HISTORY There is no family history ovarian cancer or colon cancer. I specifically discussed with the patient family history that may be suggestive of Coleman syndrome or hereditary breast-ovarian cancer syndrome. She does not appear to be in a high risk group. Breast cancer in aunt at age 93 REVIEW OF SYSTEMS A comprehensive review of systems was negative except as noted in HPI. OBJECTIVE VITAL SIGNS Body mass index is 32.87 kg/m??. ECOG status: 0 PHYSICAL EXAM Examination of sensitive areas including pelvic exam is chaperoned by Fab General: Well appearing, no apparent distress, alert and oriented. Psych: Normal affect. Abdomen: Nondistended, soft, nontender, no masses palpated, no ascites, no hepatosplenomegaly. Skin: Warm, dry, no rashes or lesions. Extremities: Bilateral lower extremities without edema or tenderness. Genitourinary Pelvic Examination including: a. External genitalia are normal in appearance. No lesions noted. b. Urethral meatus is normal size, location, and appearance. c. Urethra is negative. d. Bladder is nontender. No masses noted. e. Vagina has normal mucosa with physiologic discharge. No lesions noted. f. Uterus of normal size and mobility. g. Adnexa with no masses or nodularity noted. DIAGNOSTICS No results found for: HGB, WBC, PLT, GLUCOSE, CREATININE, CA125, ALBUMIN, HGBA1C PATHOLOGY, LAST 30 DAYS No results found for this or any previous visit (from the past 720 hour(s)). IMAGING RESULTS, LAST 7 DAYS - IMPRESSION ONLY No results found. 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 We discussed the treatment plan which would involve removal of the uterus, tubes and ovaries and lymph nodes. I told the patient that we most likely can do the procedure in a minimally invasive manner with the daVinci robotic platform. I also discussed with the patient the usual operative risks which include, but not limited to, bleeding, infection, and pain. I also cited the possible risk of injury to bowel, bladder, and ureter despite taking the measures to prevent injury as much as possible. The patient also understands that if a minimally invasive procedure is not possible, we will proceed with laparotomy to complete the planned surgical procedure. The patient signed informed consent in regards to her surgical procedure. I also discussed and the patient signed consent for blood transfusion should it be needed. The patient was given ample time to formulate and have her questions answered. I encouraged her to call us ifshe, or her family, have any questions prior to be surgery so that we may answered them adequately. We also discussed the possible need for adjuvant therapy. This will be predicated on the findings on final histology after the surgery. We will request the slides for review at [facility]. We will request MMR status on the the endometrial biopsy result. Also, I will also request the official reading of the CT scans. I discussed with the patient that she has access to her medical records via the [facility] secure web portal. The patient will sign up for access (if not already done) and she gives permission to for us to communicate electronically via this modality. PATIENT EDUCATION Ready to learn, no apparent learning barriers were identified; learning preferences include listening. Explained diagnosis and treatment plan; patient expressed understanding of the content. ADMINISTRATIVE BILLING LOS - Level 4: Total face to face time of visit 60 minutes with greater than 50% counseling/coordinating of care. Rose Mary Gutierrez M.D. documented in this encounter Plan of Treatment Scheduled Referrals Name Type Priority Associated Diagnoses Orde r Schedule Preoperative Evaluation [facility] consult (clinic) Outpatient Referral Routine Malignant Neoplasm Of Uterus Endometrial (HCC) Expected: 12/09/2018 (Approximate), Expires: 12/09/2021 documented as of this encounter Results * Hemoglobin A1c (12/09/2018 4:00 PM EDT) Pathologist [facility] Hemoglobin A1c, B 5.4 4.0 - 5.6 % 12/09/2018 4:[address] [facility] Estimated Average Glucose 108 mg/dL 12/09/2018 4:[address] [facility] Comment: ----REFERENCE VALUE---- Adult reference intervals (>=18 yrs) for HbA1c Estimated Average Glucose are: Normal: ??68-114 mg/dL Increased risk for diabetes (prediabetes): ??115-139 mg/dL Diabetes: ??>=140 mg/dL Blood (Blood, Venous) 12/09/2018 4:00 PM EDT 12/09/2018 4:07 PM EDT us Tri A Matt MRebecaD. LAB BLOOD ADD-ON Final Result Performing Organization Address [facility] Co de Phone Number [facility] [address] * S-TSH (Thyroid-Stimulating Hormone - Sensitive) (12/09/2018 4:00 PM EDT) Pathologist [facility] TSH, Sensitive 1.7 0.3 - 4.2 mIU/L 12/09/2018 4:[address] [facility] Comment: Patients consuming high dose biotin supplements can have analytical interference in this assay. ??If such interference is present it will yield falsely low results. If results are inconsistent with patient presentation please rule out biotin consumption by the patient. Blood (Blood, Venous) 12/09/2018 4:00 PM EDT 12/09/2018 4:07 PM EDT us Tri A Matt M.D. LAB BLOOD ADD-ON Final Result Performing Organization Address [facility] Co de Phone Number [facility] [address] * Cancer Antigen 125 (CA 125) (12/09/2018 4:00 PM EDT) Pathologist [facility] Cancer Ag 125 (CA 125), S 15 <46 U/mL 12/09/2018 4:[address] [facility] Comment: Patients consuming high dose [...] Gutierrez M.D. LAB BLOOD ADD-ON Final Result [facility] [address] [place] [address], [facility] * Renal Function Panel (12/09/2018 4:00 PM EDT) [facility] Potassium, P 3.8 3.6 - 5.2 mmol/L 12/09/2018 4:[address] [facility] Sodium, P 141 135 - 145 mmol/L 12/09/2018 4:[address] [facility] Chloride, P 103 98 - 107 mmol/L 12/09/2018 4:[address] [facility] Bicarbonate, P 27 22 - 29 mmol/L 12/09/2018 4:[address] [facility] Anion Gap, P 11 7 - 15 12/09/2018 4:[address] [facility] BUN (Blood Urea Nitrogen), P 11 6 - 21 mg/dL 12/09/2018 4:[address] [facility] Creatinine 0.76 0.59 - 1.04 mg/dL 12/09/2018 4:[address] [facility] eGFR-Black/Afri can Maltese >90 >=60 mL/min/BSA 12/09/2018 4:[address] [facility] Comment: ----ADDITIONAL INFORMATION---- Estimated GFR calculated using the 2009 CKD_EPI creatinine equation. eGFR Non-Black/Afric an Maltese 81 >=60 mL/min/BSA 12/09/2018 4:[address] [facility] Comment: ----ADDITIONAL INFORMATION---- Estimated GFR calculated using the 2009 CKD_EPI creatinine equation. Calcium, Total, P 9.5 8.8 - 10.2 mg/dL 12/09/2018 4:[address] [facility] Glucose, P 95 70 - 140 mg/dL 12/09/2018 4:[address] [facility] Albumin, P 4.3 3.5 - 5.0 g/dL 12/09/2018 4:[address] [facility] Phosphorus (Inorganic), P 3.6 2.5 - 4.5 mg/dL 12/09/2018 4:[address] [facility] Blood (Blood, Venous) 12/09/2018 4:00 PM EDT 12/09/2018 4:07 PM EDT us Rose Mary Gutierrez M.D. LAB BLOOD ADD-ON Final Result [facility] [address] [place] [address], [facility] * (ABNORMAL) CBC with Differential, Blood (12/09/2018 4:00 PM EDT) Leukocytes 8.5 3.4 - 9.6 x10(9)/L 12/09/2018 4:[address] [facility] Erythrocytes 4.59 3.92 - 5.13 x10(12)/L 12/09/2018 4:[address] [facility] Hemoglobin 13.6 11.6 - 15.0 g/dL 12/09/2018 4:[address] [facility] Hematocrit 41.6 35.5 - 44.9 % 12/09/2018 4:[address] [facility] MCV 90.6 78.2 - 97.9 fL 12/09/2018 4:[address] [facility] MCH 29.6 25.4 - 32.7 pg 12/09/2018 4:[address] [facility] MCHC 32.7 31.3 - 34.7 g/dL 12/09/2018 4:[address] [facility] RDW CV 14.1 12.2 - 16.1 % 12/09/2018 4:[address] [facility] RDW SD 47.6(H) 36.4 - 46.3 fL 12/09/2018 4:[address] [facility] Platelet Count 331 157 - 371 x10(9)/L 12/09/2018 4:[address] [facility] Mean Platelet Volume 9.4 7.4 - 10.9 fL 12/09/2018 4:[address] [facility] Neutrophils % 64.8 50.0 - 75.0 % 12/09/2018 4:[address] [facility] Immature Granulocytes % 0.2 0.0 - 3.0 % 12/09/2018 4:[address] [facility] Lymphocytes % 24.5 18.0 - 42.0 % 12/09/2018 4:[address] [facility] Monocytes % 8.5 2.0 - 11.0 % 12/09/2018 4:[address] [facility] Eosinophils % 1.3 1.0 - 3.0 % 12/09/2018 4:[address] [facility] Basophils % 0.7 0.0 - 2.0 % 12/09/2018 4:[address] [facility] Neutrophils 5.52 1.56 - 6.45 x10(9)/L 12/09/2018 4:[address] [facility] Lymphocytes 2.09 0.95 - 3.07 x10(9)/L 12/09/2018 4:[address] [facility] Monocytes 0.72 0.26 - 0.81 x10(9)/L 12/09/2018 4:[address] [facility] Eosinophils 0.11 0.03 - 0.48 x10(9)/L 12/09/2018 4:[address] [facility] Basophils 0.1 0.0 - 0.1 x10(9)/L 12/09/2018 4:[address] [facility] Blood (Blood, Venous) 12/09/2018 4:00 PM EDT 12/09/2018 4:07 PM EDT us Rose Mary Gutierrez M.D. LAB BLOOD ADD-ON Final Result [facility] [address] [place] [address], [facility] documented in this encounter Visit Diagnoses Diagnosis Malignant Neoplasm Of Uterus Endometrial (HCC)- Primary Bleeding Postmenopausal documented in this encounter
--- OUTSIDE RECORDS SUMMARY | 2024-07-17 10:39 | XMS_ITS | Encounter Summary ---
Author Organization [facility] Address [address] [place] [address] Care Team Providers Care Commercial Producer Name Role Phone Unavailable Primary Care Provider Unavailabl e Encounter Details Date Type Department Care Team (Late st Contact Info) Description 12/08/2018 Abstract Department of Medical and Surgical Gynecology in [place], [place] [address] [place] [address] Fabiola Ragsdale Social History Tobacco Use Types Packs/Day Years [...]
== END 2024-07-10 11:22 | disposition home or self-care (01) ==
PROVIDERS: Emergency Provider Registered Nurse
DX: J20.9 Acute bronchitis, unspecified (principal); I10 Essential (primary) hypertension; E78.5 Hyperlipidemia, unspecified; K21.9 Gastro-esophageal reflux disease without esophagitis; Z79.82 Long term (current) use of aspirin
CPT/HCPCS: 99203; G0463